=== PATIENT | female | born 1960 | race American Indian/Alaskan Native ===

== ENCOUNTER 2016-05-09 07:18 | Inpatient (IN) | payer MEDICARE, OTHER ==
[~2016-05-09 07:18] MED LIST: cefOXitin 2 GM Vial ONE
[2016-05-09] MEDS: Neomycin/Polymyxin B 1 ML, Sodium Chloride 0.9% 750 ML ONE ×4 (07:54→13:25)
[2016-05-09] MEDS ORDERED: Meropenem 500 MG SDV ONE (08:13)
[2016-05-09] MEDS ORDERED: Scopolamine 1.5 MG Transdermal Patch TOP SCH (08:15)
[2016-05-09] MEDS ORDERED: Gabapentin 300 MG Cap PO ONE (08:15)
[2016-05-09] MEDS ORDERED: Dextrose 5%-Lactated Ringers 1,000 ML IV SCH (08:30)
[2016-05-09] MEDS ORDERED: fentaNYL 250 MCG/5 ML SDV ONE (08:36)
[2016-05-09] MEDS ORDERED: Propofol 200 MG/20 ML SDV ONE (08:36)
[2016-05-09] MEDS ORDERED: Rocuronium 50 MG/5 ML Vial ONE (08:36)
[2016-05-09] MEDS ORDERED: Scopolamine 1.5 MG Transdermal Patch ONE (08:36)
[2016-05-09] MEDS ORDERED: Neostigmine Methylsulfate 1 MG/ML 5 ML Syringe ONE (08:36)
[2016-05-09] MEDS ORDERED: Dexamethasone 4 MG/ML SDV ONE (08:36)
[2016-05-09] MEDS ORDERED: Succinylcholine/Normal Saline 200 MG/10 ML Syringe ONE (08:36)
[2016-05-09] MEDS ORDERED: Ondansetron 4 MG/2 ML SDV ONE (08:36)
[2016-05-09] MEDS ORDERED: Lactated Ringers 1,000 ML ONE ×2 (08:36→11:09)
[2016-05-09] MEDS ORDERED: Sodium Chloride 0.9% 10 ML ONE (08:38)
[2016-05-09] MEDS ORDERED: fentaNYL 100 MCG/2 ML SDV ONE (08:38)
[2016-05-09] MEDS ORDERED: Ketamine 500 MG/5 ML MDV IV SCH (09:00)
[2016-05-09] MEDS ORDERED: cefOXitin 2 GM in Sodium Chloride 0.9% 50 ML IV ONE (09:15)
[2016-05-09] MEDS ORDERED: Lidocaine 1% 2 ML ONE (09:23)
[2016-05-09] MEDS ORDERED: Naloxone 0.4 MG/ML SDV IVPUSH PRN (09:30)
[2016-05-09] MEDS ORDERED: Ketamine 500 MG/5 ML MDV IV ONE (09:45)
[2016-05-09] MEDS: fentaNYL 2,500 MCG in Sodium Chloride 0.9% 200 ML EPIDUR SCH (13:30)
[2016-05-09] MEDS ORDERED: Lactated Ringers 500 ML IV ONE (14:00)
[2016-05-09] MEDS ORDERED: SCOPOLAMINE PATCH ASK TOP SCH (14:23)
[2016-05-09] MEDS ORDERED: Labetalol 20 MG/4 ML Syringe IVPUSH PRN (14:23)
[2016-05-09] MEDS ORDERED: hydrOXYzine HCl 50 MG/ML SDV IM PRN (14:23)
[2016-05-09] MEDS ORDERED: Naloxone 0.4 MG/ML SDV IV PRN (14:41)
[2016-05-09] MEDS ORDERED: diphenhydrAMINE 50 MG/ML SDV IVPUSH PRN (14:41)
[2016-05-09] MEDS ORDERED: Meperidine PF 50 MG/ML Syringe IM PRN (14:44)
[2016-05-09] MEDS: cefOXitin 2 GM in Sodium Chloride 0.9% 50 ML IV SCH ×2 (15:17→21:42)
[2016-05-09] MEDS: Acetaminophen 1,000 MG in Premix Bag 1 BAG IV SCH ×2 (16:10→21:42)
[2016-05-09] MEDS: Pantoprazole 40 MG Vial IVPUSH SCH (16:12)
[2016-05-09] MEDS: MVI, Adult with Vitamin K 10 ML, Thiamine 200 MG, Chromium/Copper/Mang/Selen/Zn 1 ML in... IV SCH ×4 (16:12)
[2016-05-09] MEDS: Heparin Sodium 5,000 Units/ML Vial SUBCUT SCH (18:08)
[2016-05-09] MEDS: Gabapentin 300 MG Cap PO SCH (21:42)
[2016-05-10] MEDS: Dextrose 5%-Lactated Ringers 1,000 ML IV SCH ×3 (01:42→15:05)
[2016-05-10] MEDS ORDERED: Iohexol 647 MG/ML 50 ML SDV PO SCH (02:15)
[2016-05-10] MEDS: Acetaminophen 1,000 MG in Premix Bag 1 BAG IV SCH (04:19)
[2016-05-10] MEDS: cefOXitin 2 GM in Sodium Chloride 0.9% 50 ML IV SCH ×4 (04:35→20:23)
[2016-05-10] MEDS: Heparin Sodium 5,000 Units/ML Vial SUBCUT SCH (06:23)
[2016-05-10] MEDS: Gabapentin 300 MG Cap PO SCH ×3 (09:03→20:06)
[2016-05-10] MEDS: Bisacodyl 5 MG Tab PO SCH ×2 (09:03→20:06)
[2016-05-10] MEDS: Ibuprofen 600 MG Tab PO SCH ×3 (09:04→22:29)
[2016-05-10] MEDS: Acetaminophen Soln 650 MG/20.3 ML UD Cup PO SCH ×3 (09:04→22:29)
[2016-05-10] MEDS: SCOPOLAMINE PATCH CHECK TOP SCH (09:05)
[2016-05-10] MEDS: Ondansetron 4 MG/2 ML SDV IVPUSH PRN (09:08)
[2016-05-10] MEDS: fentaNYL 2,500 MCG in Sodium Chloride 0.9% 200 ML EPIDUR SCH (09:12)
--- NOTE | 2016-05-10 09:46 | CR ---
UGI wo KUB HISTORY: Evaluate [place] bypass COMPARISON: Plain films 04/11/2016. FINDINGS: Upper GI demonstrates no extravasation of contrast. Surgical drain in the right and left l ower quadrant. Contrast reaches normal caliber small bowel. No obstruction seen. Gastric anastomosis demonstrates no stricture.
[2016-05-10] MEDS: Pantoprazole 40 MG Vial IVPUSH SCH (16:44)
[2016-05-10] MEDS ORDERED: Heparin Sodium 5,000 Units/ML Vial SUBCUT ONE (17:00)
[2016-05-10] MEDS: MVI, Adult with Vitamin K 10 ML, Thiamine 200 MG, Chromium/Copper/Mang/Selen/Zn 1 ML in... IV SCH ×4 (17:36)
[2016-05-11] MEDS: cefOXitin 2 GM in Sodium Chloride 0.9% 50 ML IV SCH ×4 (02:56→20:00)
[2016-05-11] MEDS: Ibuprofen 600 MG Tab PO SCH ×4 (03:55→21:27)
[2016-05-11] MEDS: Acetaminophen Soln 650 MG/20.3 ML UD Cup PO SCH ×4 (03:55→21:28)
[2016-05-11] MEDS: Dextrose 5%-Lactated Ringers 1,000 ML IV SCH ×2 (04:00→12:29)
[2016-05-11] MEDS ORDERED: Bupivacaine 0.5% 50 ML MDV ONE (06:48)
[2016-05-11] MEDS ORDERED: Lidocaine 1% with EPINEPHrine 1:100,000 50 ML MDV ONE (06:48)
[2016-05-11] MEDS ORDERED: Meropenem 500 MG SDV ONE (06:48)
[2016-05-11] MEDS ORDERED: Propofol 200 MG/20 ML SDV ONE (06:59)
--- NOTE | 2016-05-11 08:52 | PN ---
DATE OF SERVICE: 05/10/2016 The patient has been afebrile with stable vital signs. Epidural is working nicely with regard to pain control. She is also receiving some IV now, and we will switch over to oral Tylenol. We will add ibuprofen to the mix today and plan to proceed with closure of abdominal incision tomorrow and taking out the epidural at that point as well. We will give her a regular diet today and n.p.o. after midnight in anticipation of the closure, which will be the first thing tomorrow morning. Kit Duke MD /[id number]
[2016-05-11] MEDS ORDERED: Cyanocobalamin (Vitamin B12) 1,000 MCG/ML SDV IM ONE (09:00)
[2016-05-11] MEDS: Gabapentin 300 MG Cap PO SCH ×3 (09:52→20:00)
[2016-05-11] MEDS: Bisacodyl 5 MG Tab PO SCH (09:52)
[2016-05-11] MEDS: SCOPOLAMINE PATCH CHECK TOP SCH (09:54)
[2016-05-11] MEDS: Inulin 1.5 GM Chewable Tab PO SCH ×2 (11:04→20:00)
[2016-05-11] MEDS: Ondansetron 4 MG/2 ML SDV IVPUSH PRN ×2 (13:05→21:29)
[2016-05-11] MEDS: Pantoprazole 40 MG Vial IVPUSH SCH (16:53)
[2016-05-11] MEDS: MVI, Adult with Vitamin K 10 ML, Thiamine 200 MG, Chromium/Copper/Mang/Selen/Zn 1 ML in... IV SCH ×4 (17:37)
[2016-05-11] MEDS ORDERED: Heparin Sodium 5,000 Units/ML Vial SUBCUT SCH (18:00)
[2016-05-12] MEDS: cefOXitin 2 GM in Sodium Chloride 0.9% 50 ML IV SCH (03:39)
[2016-05-12] MEDS: Ibuprofen 600 MG Tab PO SCH ×4 (03:39→21:54)
[2016-05-12] MEDS: Acetaminophen Soln 650 MG/20.3 ML UD Cup PO SCH ×4 (03:39→21:54)
[2016-05-12] MEDS: Dextrose 5%-Lactated Ringers 1,000 ML IV SCH (03:46)
[2016-05-12] MEDS ORDERED: Cyclobenzaprine 10 MG Tab PO PRN (08:02)
[2016-05-12] MEDS ORDERED: Scopolamine 1.5 MG Transdermal Patch TOP SCH (09:00)
[2016-05-12] MEDS: HYDROmorphone 2 MG Tab PO PRN ×3 (09:15→21:53)
[2016-05-12] MEDS: Gabapentin 300 MG Cap PO SCH ×3 (09:15→21:54)
[2016-05-12] MEDS: Lactobacillus Rhamnosus GG (Probiotic) Cap PO SCH ×2 (09:16→21:54)
[2016-05-12] MEDS: Inulin 1.5 GM Chewable Tab PO SCH ×2 (09:18→21:54)
[2016-05-12] MEDS: Ondansetron 4 MG/2 ML SDV IVPUSH PRN ×3 (09:23→21:53)
[2016-05-12] MEDS: Bacitracin Oint 1 GM U/D Packet TOP PRN ×2 (09:25→20:31)
[2016-05-12] MEDS ORDERED: Atropine/Diphenoxylate 0.025-2.5 MG Tab PO ONE (10:35)
[2016-05-12] MEDS ORDERED: Atropine/Diphenoxylate 0.025-2.5 MG Tab PO PRN (10:35)
[2016-05-12] MEDS: SCOPOLAMINE PATCH CHECK TOP SCH (10:56)
--- NOTE | 2016-05-12 11:19 | OR ---
DATE OF PROCEDURE: 05/11/2016 PREOPERATIVE DIAGNOSIS: Open abdominal incision. POSTOPERATIVE DIAGNOSIS: Open abdominal incision. OPERATIVE PROCEDURE: Delayed primary closure of open abdominal incision. ANESTHESIA: IV sedation plus local. INDICATION FOR PROCEDURE: The patient is 48 hours status post subtotal colectomy, and at the time of the original procedure, it was felt that the skin and subcutaneous tissue would be at high risk for wound infection if a primary closure was undertaken. Given this, planned delayed primary closure is scheduled for today. Potential risks of the procedure including bleeding and infection were reviewed, and the patient wishes to proceed. DETAILS OF PROCEDURE: The patient was taken to the operating room and placed in a supine position. IV sedation was administered, after which the operative dressing was taken down. The wound was inspected and found to be clean. The incision was then prepped and draped, anesthetized with 1% lidocaine mixed with Marcaine and irrigated with meropenem-containing saline solution. A 10-Indian round Valentino-Young drain was placed through a stab wound near the inferior aspect of the incision, draped across that incision, and the incision closed with layers of 3-0 and 4-0 Vicryl stitch deep and then murtaza for the skin. Dressing was applied. The drain was affixed with some 3-0 Vicryl stitch. The patient was taken to the recovery room in satisfactory condition. Kit Duke MD /[id number]
--- NOTE | 2016-05-12 12:43 | PN ---
DATE OF SERVICE: 05/11/2016 The patient has been afebrile. Stable vital signs. Bowels started moving yesterday and is having frequent loose bowel movements. Will use some fiber wafers and go up to a regular diet. She has had a delayed primary closure of abdominal incision today and we will discontinue the epidural catheter and we will see if the combination of ibuprofen, gabapentin, and Tylenol are satisfactory for pain. Otherwise, will maximize activity and work with pulmonary toilet. Kit Duke MD /[id number]
[2016-05-12] MEDS: MVI, Adult with Vitamin K 10 ML, Thiamine 200 MG, Chromium/Copper/Mang/Selen/Zn 1 ML in... IV SCH ×4 (16:59)
[2016-05-12] MEDS: Pantoprazole 40 MG Tab.CR PO SCH (16:59)
[2016-05-12] MEDS ORDERED: Dimethicone 20%/Zinc Oxide 25% 56 GM Spray Bottle TOP PRN (19:53)
[2016-05-13] MEDS: Ondansetron 4 MG/2 ML SDV IVPUSH PRN (02:10)
[2016-05-13] MEDS: HYDROmorphone 2 MG Tab PO PRN ×3 (02:10→21:23)
[2016-05-13] MEDS: Dextrose 5%-Lactated Ringers 1,000 ML IV SCH (02:59)
[2016-05-13] MEDS: Ibuprofen 600 MG Tab PO SCH (05:24)
[2016-05-13] MEDS: Acetaminophen Soln 650 MG/20.3 ML UD Cup PO SCH ×4 (05:24→17:00)
[2016-05-13] MEDS ORDERED: Loperamide 2 MG Cap PO PRN (07:39)
[2016-05-13] MEDS ORDERED: fentaNYL 12 MCG/HR Transdermal Patch TRDERM SCH (08:00)
[2016-05-13] MEDS: Metoclopramide 10 MG/2 ML SDV IV SCH ×3 (08:58→19:52)
[2016-05-13] MEDS: Lactobacillus Rhamnosus GG (Probiotic) Cap PO SCH ×2 (08:59→20:18)
[2016-05-13] MEDS: Inulin 1.5 GM Chewable Tab PO SCH ×2 (08:59→20:19)
[2016-05-13] MEDS: SCOPOLAMINE PATCH CHECK TOP SCH ×2 (09:00→14:37)
[2016-05-13] MEDS: Potassium Phosphates 20 MMOLE in Sodium Chloride 0.9% 250 ML IV SCH ×3 (10:02→19:49)
[2016-05-13] MEDS: MVI, Adult with Vitamin K 10 ML, Thiamine 200 MG, Chromium/Copper/Mang/Selen/Zn 1 ML in... IV SCH ×4 (16:58)
[2016-05-13] MEDS: Pantoprazole 40 MG Tab.CR PO SCH (16:59)
[2016-05-13] MEDS: Magnesium Sulfate/Water 2 GM in Premix Bag 1 BAG IV SCH (17:02)
--- NOTE | 2016-05-13 17:50 | PCM.CONS ---
H&P History of Present Illness - General Date of Service: 05/13/16 Admit Problem/Dx: Admission Diagnosis/Problem Admission Diagnosis/Problem Colectomy Source of Information: Patient, Provider History Limitations: Reports: Altered mental status - History of Present Illness Initial Comments - Free Text/Narative: Carolyn was admitted on May 09 for a colectomy. Today is day 4 postoperatively and I was asked to see her by Dr. Duke regarding elevated bilirubin and hepatic panel numbers. She is very sleepy at this time and unable to provide much history. Per the nursing report she has been sleeping much of the day but had been doing well for the most part through the day yesterday. She currently does endorse moderate sharp abdominal pain both in the right upper quadrant and left lower quadrant as well as a mild ache in the middle of her abdomen. Pain medications have been helping but she has not had any since this morning because of somnolence. Her fentanyl patch was not replaced this morning do to the somnolence. She did require supplemental oxygen temporarily today. At the time of my valuation she does not endorse shortness of breath and is not on supplemental oxygen. She does not complaining of shortness of breath or chest pain. She has been having some difficulty with visual hallucinations such as feeling like she's part of her dreams as well as things moving on the floor. These are new today. In reviewing her records it does appear that her hepatic panel numbers often bump following surgery but not usually the bilirubin. ABDOMINAL AND GEREALIZED ACHE Pain Score (Numeric/FACES): 7 - Related Data Allergies/Adverse Reactions: Allergies Allergy/AdvReac Type Severity Reaction Status Date / Time codeine Allergy Unknown Cannot Verified 05/09/16 08:04 Remember hydrocodone Allergy Unknown Cannot Verified 05/09/16 08:04 Remember omeprazole Allergy Unknown Cannot Verified 05/09/16 08:04 Remember oxycodone Allergy Unknown Cannot Verified 05/09/16 08:04 Remember sucralfate [From Carafate] Allergy Unknown Cannot Verified 05/09/16 08:04 Remember venom-honey bee Allergy Cannot Verified 05/09/16 08:04 [bee venom (honey bee)] Remember Home Medications: Home Meds Cyanocobalamin (Vitamin B-12) [Cyanocobalamin Injection] 1 ml IM ASDIRECTED [History] EPINEPHrine [Epipen] 0.3 mg IM ASDIRECTED PRN 04/10/15 [History] Multivitamin with Minerals [Multivitamins with Minerals] 1 tab PO DAILY [History] Ondansetron [Zofran ODT] 4 mg PO Q4HR PRN #30 tab.dis 04/16/15 [Rx] Sennosides/Docusate Sodium [Senna S Tablet] 2 tab PO DAILY 11/09/15 [History] Thiamine [Vitamin B-1] 100 mg IM ASDIRECTED 11/09/15 [History] Docusate Sodium/Sennosides [Senna Plus] 2 tab PO DAILY #100 tablet 01/06/16 [Rx] Lidocaine 5% [Lidoderm 5%] 700 mg TRDERM DAILY patch 01/06/16 [Rx] Lubiprostone [Amitiza] 24 mcg PO BID cap 01/06/16 [Rx] Scopolamine [Transderm-Scop] 1.5 mg TRDERM Q72H #5 patch 01/06/16 [Rx] Acetaminophen 640 mg PO Q4H PRN 04/07/16 [History] Bisacodyl [Dulcolax] 10 mg PO BID #100 tablet 04/11/16 [Rx] Polyethylene Glycol 3350 [MiraLAX] 17 gm PO BID #0 04/11/16 [Rx] Polyethylene Glycol 3350 [Miralax] 119 gm PO ASDIRECTED #238 powder 04/11/16 [Rx ] traMADol [Ultram] 50 - 100 mg PO Q6H PRN #30 tablet 04/11/16 [Rx] Past Medical History HEENT History: Reports: None, Cataract, Other (see below) Other HEENT History: pititutary Cardiovascular History: Reports: Other (see below) Other Cardiovascular History: BRADYCARDIA Respiratory History: Reports: Asthma, Other (see below) Other Respiratory History: Night time oxygen due to Lupus at 2.5-3L. 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 Musculoskeletal History: Reports: Arthritis, Back pain, chronic, Connective tissue disease, Neck pain, chronic, Other (see below) Other Musculoskeletal History: herniated disc Neurological History: Reports: Concussion, Head trauma, Migraines, TIA, Other ( see below) Other Neuro History: herniated disc - TIA 03/08/16 - tpa given to break up clot - Psychiatric History: Reports: None Endocrine/Metabolic History: Reports: None Hematologic History: Reports: B12 deficiency, Other (see below) Other Hematologic History: lymphoma Immunologic History: Reports: Immunosuppression, Other (see below) Other Immunologic History: lupus Oncologic (Cancer) History: Reports: Lymphoma Dermatologic History: Reports: None - Infectious Disease History Infectious Disease History: Reports: Chicken pox, Measles, Mumps - Past Surgical History Head Surgeries/Procedures: Reports: None HEENT Surgical History: Reports: LASIK, Other (see below) Other HEENT Surgeries/Procedures: dry eyes lymph node right gland removed Cardiovascular Surgical History: Reports: None Respiratory Surgical History: Reports: None GI Surgical History: Reports: Appendectomy, Bariatric procedure, Cholecystectomy , Colon, Colonoscopy, Esophageal dilatation Female Surgical History: Reports: Tubal ligation Endocrine Surgical History: Reports: Pituitary tumor resection Neurological Surgical History: Reports: None Musculoskeletal Surgical History: Reports: None Oncologic Surgical History: Reports: None Dermatological Surgical History: Reports: None Social & Family History - Family History HEENT: Reports: Impaired vision Cardiac: Reports: CAD, [place] Respiratory: Reports: Asthma GI: Reports: None : Reports: Diabetic nephropathy OBGYN: Reports: None Musculoskeletal: Reports: None Neurological: Reports: None Psychiatric: Reports: None Endocrine/Metabolic: Reports: Diabetes, type I, Diabetes, type II, Hypothyroidism Hematologic: Reports: None Immunologic: Reports: None Oncologic: Reports: Breast, Uterine - Tobacco Use Smoking Status *Q: Never Smoker Second Hand Smoke Exposure: No - Caffeine Use Caffeine Use: Reports: None Other Caffeine Use: occasionaly - Alcohol Use Alcohol Use History: No - Recreational Drug Use Recreational Drug Use: No H&P Review of Systems - Review of Systems: Review Of Systems: See Below Free Text/Narrative: A complete 12 point review of systems was obtained. Pertinent positives and negatives are noted in the history of present illness. All other systems were reviewed and were negative except as noted. I did complete the review of systems but she was not able to respond to all of the questions. Exam - Exam Exam: See Below - Vital Signs Vital Signs: Last Vital Signs Temp 37.4 C 05/13/16 16:29 Pulse 114 H 05/13/16 16:29 Resp 16 05/13/16 16:29 BP 106/65 05/13/16 16:29 Pulse Ox 93 L 05/13/16 16:29 Weight: 60.781 kg - Exam Quality Assessment: No: supplemental oxygen, urinary catheter General: alert, cooperative, lethargic. No: oriented HEENT: Conjunctiva clear. No: Mucosa moist & pink (dry), Scleral icterus Neck: supple, trachea midline. No: lymphadenopathy Lungs: Clear to auscultation, Normal respiratory effort, Decreased breath sounds (mild at both bases) Cardiovascular: regular rhythm, tachycardia (mild). No: systolic murmur Abdomen: soft, distention, hypoactive bowel sounds Back Exam: full range of motion. No: normal inspection Extremities: cool (both hands and feet are cool to touch), edema (pitting lower extremity edema to midshin). No: cyanosis Peripheral Pulses: 1+: dorsalis pedis (L), dorsalis pedis (R) Skin: dry, cool, other (2 small ruptured vesicles mid back with mild surrounding erythema ( had tape for epidural here )) Neuro Extensive - Mental Status: alert, slow response to commands. No: oriented x3 Neuro Extensive - Motor, Sensory, Reflexes: CN II-XII intact. No: dysarthria, abnormal motor, tremor Psychiatric: alert, other (lethargic) - Patient Data Lab Results last 24 hrs: Laboratory Results - last 24 hr 05/13/16 05/13/16 05/13/16 Range/Units 04:00 04:00 04:00 WBC Cancelled 3.7 L RBC Cancelled 3.57 Hgb Cancelled 10.3 L D Hct Cancelled 31.7 L MCV Cancelled 89 MCH Cancelled 29 MCHC Cancelled 33 Plt Count Cancelled 287 Add Manual Diff Yes Neutrophils % (Manual) 62 (36-66) % Band Neutrophils % 12 H (5-11) % Lymphocytes % (Manual) 17 L (24-44) % Monocytes % (Manual) 9 H (2-6) % Nucleated RBCs 2 Poikilocytosis Few Anisocytosis Few Microcytosis Sodium 140 (140-148) mmol/L Potassium 3.1 L (3.6-5.2) mmol/L Chloride 106 (100-108) mmol/L Carbon Dioxide 27 (21-32) mmol/L Anion Gap 10.1 (5.0-14.0) mmol/L BUN 13 (7-18) mg/dL Creatinine 0.8 (0.6-1.0) mg/dL Est Cr Clr Drug Dosing 74.45 mL/min Estimated GFR (MDRD) > 60 (>60) Glucose 82 (74-106) mg/dL Calcium 8.4 L (8.5-10.1) mg/dL Phosphorus 2.9 (2.5-4.9) mg/dL Magnesium 1.5 L (1.8-2.4) mg/dL Total Bilirubin 3.1 H D (0.2-1.0) mg/dL AST 103 H D (15-37) U/L ALT 96 H (12-78) U/L Alkaline Phosphatase 274 H D (46-116) U/L Total Protein 4.9 L (6.4-8.2) g/dL Albumin 1.8 L (3.4-5.0) g/dL Globulin 3.1 (2.3-3.5) g/dL Albumin/Globulin Ratio 0.6 L (1.2-2.2) Result Diagrams: 05/13/16 04:00 05/13/16 04:00 Dereje Results last 24 hrs: Microbiology 05/11/16 23:55 Aerobic Blood Culture - Preliminary Blood - Venous NO GROWTH AFTER 1 DAY Anaerobic Blood Culture - Preliminary NO GROWTH AFTER 1 DAY 05/11/16 23:55 Aerobic Blood Culture - Preliminary Blood - Venous - Lab Draw NO GROWTH AFTER 1 DAY Anaerobic Blood Culture - Preliminary NO GROWTH AFTER 1 DAY Imaging Impressions last 24 hrs: chest x-ray - images personally reviewed - there is evidence for left lower lung pleural effusion with possibly an infiltrate mixed in. She has evidence for pulmonary vascular congestion. Heart size is normal. No definite mass. Consult PN Assessment/Plan POD#: 4 Procedures: Procedures ASSAY OF LACTIC ACID (03/04/16) ASSAY OF MAGNESIUM (04/07/16) ASSAY OF PHOSPHORUS (04/07/16) ASSAY THYROID STIM HORMONE (10/08/15) BLOOD TYPING SEROLOGIC ABO (04/14/15) BLOOD TYPING SEROLOGIC RH(D) (04/14/15) C-REACTIVE PROTEIN (04/07/16) COMPLETE CBC AUTOMATED (04/07/16) COMPLETE CBC W/AUTO DIFF WBC (04/07/16) COMPREHEN METABOLIC PANEL (04/07/16) CT ABD & PELV W/CONTRAST (03/04/16) CULTURE SCREEN ONLY (11/10/15) ELECTROCARDIOGRAM TRACING (04/14/15) EMERGENCY DEPT VISIT (04/07/16) HYDRATE IV INFUSION ADD-ON (04/07/16) MEASURE BLOOD OXYGEN LEVEL (01/01/16) METABOLIC PANEL TOTAL CA (03/04/16) PT EVALUATION (11/10/15) RBC ANTIBODY SCREEN (04/14/15) ROUTINE VENIPUNCTURE (04/07/16) SPECIAL STAINS GROUP 2 (04/14/15) THER/PROPH/DIAG INJ IV PUSH (04/07/16) THER/PROPH/DIAG IV INF ADDON (03/04/16) THER/PROPH/DIAG IV INF INIT (03/04/16) THERAPEUTIC ACTIVITIES (11/10/15) TISSUE EXAM BY PATHOLOGIST (01/01/16) TISSUE EXAM BY PATHOLOGIST (01/01/16) TISSUE EXAM BY PATHOLOGIST (04/14/15) TISSUE EXAM BY PATHOLOGIST (04/14/15) TX/PRO/DX INJ NEW DRUG ADDON (04/07/16) URINALYSIS AUTO W/SCOPE (04/07/16) X-RAY EXAM OF ABDOMEN (04/07/16) X-RAY EXAM SERIES ABDOMEN (04/07/16) X-RAY UPPER GI DELAY W/O KUB (03/04/16) X-RAY UPPER GI&SMALL INTEST (04/07/16) (1) Elevated bilirubin SNOMED Code(s): 393678906 Code(s): R17 - UNSPECIFIED JAUNDICE Current Visit: Yes Problem List Initiated/Reviewed/Updated: Yes My Orders last 24 hours: My Active Orders 05/13/16 16:27 CXR [Chest 1V Frontal] [CR] Routine 05/13/16 17:42 Furosemide [Lasix] 20 mg IVPUSH ONETIME ONE 05/13/16 18:00 Dextrose 5%-Lactated Ringers 1,000 ml IV ASDIRECTED Plan: Assessment and Plan - Elevated bilirubin with mild elevation of AST and ALT - history of similar elevations following surgery though not bilirubin to this extent. I do not see much in the way of concerning medications. Stress leading to a very mild lupus flare could be considered since this seems to happen after each surgery based on chart review. Hepatic congestion with some volume overload could be considered. she's not on TPN and has not received large doses of acetaminophen. -diuresis as below -Labs in the morning Delirium - probably multifactorial with medications such as pain medications, cyclobenzaprine and scopolamine patch. She does have evidence for volume overload and hypoxia could be contributing. -Discontinue fentanyl patch, cyclobenzaprine and scopolamine -Furosemide 20 mg IV x1 now -Decrease IV fluids -avoid narcotics as much as able S/P colectomy - post op day 4 - had been stable up through yesterday but has deteriorated overnight. -Postop cares per surgical team Eduard Bedolla M.D. Requesting Provider: Dr. Duke Date Consult Requested: 05/13/16 Reason for Consult: elevated bilirubin and delirium Patient History Reviewed: Yes Admission H&P Reviewed: Yes Notified Requestor: No Time Spent (in minutes): 60
[2016-05-13] MEDS ORDERED: Meropenem 500 MG in Sodium Chloride 0.9% 50 ML IV ONE (18:00)
[2016-05-13] MEDS ORDERED: Dextrose 5%-Lactated Ringers 1,000 ML IV SCH (18:00)
[2016-05-13] MEDS ORDERED: Furosemide 20 MG/2 ML VIAL IVPUSH ONE (18:00)
[2016-05-13] MEDS ORDERED: Diatrizoate Meglumine/Diatrizoate Sodium 37% 30 ML Bottle PO SCH (18:15)
[2016-05-13] MEDS ORDERED: Iopamidol 612 MG/ML 100 ML Bottle IV SCH (18:15)
[2016-05-13] MEDS ORDERED: Albuterol/Ipratropium 3.0-0.5 MG/3 ML Neb Soln NEB STA (19:08)
[2016-05-13] MEDS: Sodium Chloride 0.9% 10 ML Syringe FLUSH ONE ×2 (19:17→19:22)
[2016-05-13] MEDS ORDERED: Diatrizoate Meglumine/Diatrizoate Sodium 37% 120 ML Bottle PO SCH (19:45)
[2016-05-14] MEDS: Magnesium Sulfate/Water 2 GM in Premix Bag 1 BAG IV SCH ×2 (00:15→04:16)
[2016-05-14] MEDS: Meropenem 500 MG in Sodium Chloride 0.9% 50 ML IV SCH ×6 (00:15→22:07)
[2016-05-14] MEDS: Acetaminophen Soln 650 MG/20.3 ML UD Cup PO SCH ×2 (00:15→04:16)
[2016-05-14] MEDS: Metoclopramide 10 MG/2 ML SDV IV SCH ×2 (02:05→08:03)
[2016-05-14] MEDS: HYDROmorphone 2 MG Tab PO PRN (02:12)
[2016-05-14] MEDS ORDERED: Meropenem 500 MG SDV ONE ×2 (07:30→10:02)
[2016-05-14] MEDS ORDERED: Neostigmine Methylsulfate 1 MG/ML 5 ML Syringe ONE (07:43)
[2016-05-14] MEDS ORDERED: Ondansetron 4 MG/2 ML SDV ONE (07:43)
[2016-05-14] MEDS ORDERED: Succinylcholine/Normal Saline 200 MG/10 ML Syringe ONE (07:43)
[2016-05-14] MEDS ORDERED: Midazolam 1 MG/ML 2 ML SDV ONE (07:43)
[2016-05-14] MEDS ORDERED: Dexamethasone 4 MG/ML SDV ONE (07:43)
[2016-05-14] MEDS ORDERED: Propofol 200 MG/20 ML SDV ONE (07:43)
[2016-05-14] MEDS ORDERED: Rocuronium 50 MG/5 ML Vial ONE (07:43)
[2016-05-14] MEDS ORDERED: fentaNYL 250 MCG/5 ML SDV ONE (07:43)
[2016-05-14] MEDS ORDERED: Ketamine 500 MG/5 ML MDV ONE (08:50)
[2016-05-14] MEDS ORDERED: Sodium Chloride 0.9% 10 ML ONE ×2 (08:51→09:27)
[2016-05-14] MEDS ORDERED: Phenylephrine 1% 10 MG/ML SDV ONE (09:26)
[2016-05-14] MEDS: fentaNYL 25 MCG/HR Transdermal Patch TRDERM SCH ×2 (09:30→16:58)
[2016-05-14] MEDS ORDERED: Lactated Ringers 1,000 ML ONE (09:33)
[2016-05-14] MEDS ORDERED: Edrophonium Chloride 150 MG/15 ML MDV ONE (10:58)
[2016-05-14] MEDS ORDERED: Naloxone 0.4 MG/ML SDV IV PRN (13:00)
[2016-05-14] MEDS: HYDROmorphone/Normal Saline 15 MG/30 ML PCA IV PRN (13:09)
[2016-05-14] MEDS ORDERED: diphenhydrAMINE 50 MG/ML SDV IVPUSH PRN (13:15)
--- NOTE | 2016-05-14 13:16 | PN ---
DATE OF SERVICE: 05/13/2016 TIME: 8 p.m. Earlier this afternoon, the patient developed somewhat feculent-type drainage into the LACIE drain that runs along the left colic gutter area and into the left side of the pelvis. The patient has been more or less having more abdominal pain as well as some intermittent fevers over the last 24 hours. Clinically, she is hemodynamically stable with a temperature of 98, heart rate of 107, and blood pressure presently of 102/60, and urine output is quite good. The other 2 LACIE drains are not putting anything out untoward. We did obtain a CT scan of the abdomen and pelvis with rectal and IV contrast. There was good contrast getting into the small bowel from the area through the ileorectal anastomosis. No leak was seen, and no obvious abscess cavities were seen. It is possible at this point that the drain is opened up what would otherwise be a satisfactory drainage of the infected fluid collection with this just happening over the last few hours, and the patient is reasonably stable in appearance, so I think we will treat this with antibiotics consisting of meropenem and Azactam and see how things go over the next 8, 12, and 24 hours. If her condition worsen, or if by morning, she is not looking significantly improving, we probably would need to proceed with a laparotomy. The nurses will be in contact with me frequently during the night as needed. Kit Duke MD /[id number]
[2016-05-14] MEDS: Aztreonam/Dextrose-Water 1 GM in Premix Bag 1 BAG IV SCH ×2 (13:20→22:06)
[2016-05-14] MEDS: 1: AA 5%/Calcium/D15W/Lytes 1,000 ML with MVI, Adult with Vitamin K 10 ML, Chromium/Copp IV SCH ×3 (15:35)
[2016-05-14] MEDS: MVI, Adult with Vitamin K 10 ML, Thiamine 200 MG, Chromium/Copper/Mang/Selen/Zn 1 ML in... IV SCH ×4 (16:33)
[2016-05-14] MEDS: Pantoprazole 40 MG Vial IV SCH (16:43)
[2016-05-14] MEDS: Acetaminophen 1,000 MG in Premix Bag 1 BAG IV SCH ×2 (16:47→22:05)
[2016-05-14] MEDS: CHECK FENTANYL PATCH DAILY TOP SCH (16:58)
--- NOTE | 2016-05-14 17:37 | PCM.CONSN ---
- General Info Date of Service: 05/14/16 Functional Status: Denies: pain controlled, tolerating diet - Review of Systems General: Reports: fever, weakness Gastrointestinal: Reports: Abdominal pain Systems Review Comment:: Overnight it was discovered that the patient had either an abscess or possibly a leak at the anastomosis via CT scan. She was taken to the operating room this morning and had an exploratory laparotomy which revealed a leak at the JJ site as well as a focal abscess and peritonitis. Postoperatively she is reporting moderately severe abdominal pain. She is requiring supplemental oxygen. CT scan did also reveal a left pleural effusion. Gram stain from the abscess is showing gram-negative rods and she is on broad-spectrum antibiotics. - Patient Data Vitals - most recent: Last Vital Signs Temp 37.3 C 05/14/16 16:00 Pulse 126 H 05/14/16 12:01 Resp 16 05/14/16 17:00 BP 102/62 05/14/16 17:00 Pulse Ox 93 L 05/14/16 17:00 Weight - most recent: 60.781 kg I&O - last 24 hours: Intake & Output 05/14/16 05/14/16 05/14/16 06:59 14:59 22:59 Intake Total 2492 Output Total 2866 344 169 Balance -273 -575 -169 Lab Results last 24 hrs: Laboratory Results - last 24 hr 05/14/16 05/14/16 Range/Units 04:41 04:41 WBC 6.6 (4.5-11.0) K/uL RBC 4.37 (3.30-5.50) M/uL Hgb 12.8 D (12.0-15.0) g/dL Hct 36.8 (36.0-48.0) % MCV 84 (80-98) fL MCH 29 (27-31) pg MCHC 35 (32-36) % Plt Count 241 (150-400) K/uL Add Manual Diff Yes Neutrophils % (Manual) 66 (36-66) % Band Neutrophils % 20 H (5-11) % Lymphocytes % (Manual) 3 L (24-44) % Monocytes % (Manual) 7 H (2-6) % Metamyelocytes % 2 % Myelocytes % 2 % Polychromasia Poikilocytosis Few Anisocytosis Few Sodium 141 (140-148) mmol/L Potassium 3.7 (3.6-5.2) mmol/L Chloride 108 (100-108) mmol/L Carbon Dioxide 20 L (21-32) mmol/L Anion Gap 16.7 H (5.0-14.0) mmol/L BUN 20 H D (7-18) mg/dL Creatinine 1.0 (0.6-1.0) mg/dL Est Cr Clr Drug Dosing 59.56 mL/min Estimated GFR (MDRD) 57 L (>60) Glucose 87 (74-106) mg/dL Calcium 7.9 L (8.5-10.1) mg/dL Phosphorus 4.1 (2.5-4.9) mg/dL Total Bilirubin 0.7 D (0.2-1.0) mg/dL AST 35 (15-37) U/L ALT 61 (12-78) U/L Alkaline Phosphatase 207 H (46-116) U/L Total Protein 4.8 L (6.4-8.2) g/dL Albumin 1.5 L (3.4-5.0) g/dL Globulin 3.3 (2.3-3.5) g/dL Albumin/Globulin Ratio 0.5 L (1.2-2.2) Dereje Results last 24 hrs: Microbiology 05/14/16 09:43 Gram Stain - Final Abdomen - Abscess 05/11/16 23:55 Aerobic Blood Culture - Preliminary Blood - Venous NO GROWTH AFTER 2 DAYS Anaerobic Blood Culture - Preliminary NO GROWTH AFTER 2 DAYS 05/11/16 23:55 Aerobic Blood Culture - Preliminary Blood - Venous - Lab Draw NO GROWTH AFTER 2 DAYS Anaerobic Blood Culture - Preliminary NO GROWTH AFTER 2 DAYS Med Orders - Current: Current Medications Bacitracin (Bacitracin Oint 1 Gm) 1 dose TOP BID PRN PRN Reason: burn Last Admin: 05/12/16 20:31 Dose: 2 dose Dimethicone/Zinc Oxide (Rash Relief-Zinc Oxide Cushing) 1 gm TOP ASDIRECTED PRN PRN Reason: Other Last Admin: 05/12/16 20:30 Dose: 1 bot Diphenhydramine HCl (Benadryl) 25 - 50 mg IVPUSH Q4H PRN PRN Reason: ITCHING Fentanyl (Duragesic) 25 mcg TRDERM Q72H [facility] Last Admin: 05/14/16 16:58 Dose: Not Given Hydromorphone HCl (Dilaudid Welder Fabricator 15 Mg In Ns 30 Ml) 0 mg IV ASDIRECTED PRN; Protocol PRN Reason: DIGITAL CARTOGRAPHIC TECHNICIAN PAIN CONTROL Last Admin: 05/14/16 13:09 Dose: 15 mg Hydroxyzine HCl (Vistaril) 100 mg IM Q4H PRN PRN Reason: PAIN NOT CONTROLLED BY DIGITAL CARTOGRAPHIC TECHNICIAN Multivitamins/Minerals 10 ml/Thiamine HCl 200 mg/ Chromium/Copper/Manganese/ Seleni/Zn 1 ml/ Dextrose/Lactated Ringer's 1,013 mls @ 100 mls/hr IV DAILY@ 1600 [facility] Last Admin: 05/14/16 16:33 Dose: Not Given Meropenem 500 mg/ Sodium (Chloride) 50 mls @ 100 mls/hr IV Q6H [facility] Last Admin: 05/14/16 15:39 Dose: 100 mls/hr Aztreonam/Dextrose 1 gm/ (Premix) 50 mls @ 100 mls/hr IV Q8H [facility] Last Admin: 05/14/16 13:20 Dose: 100 mls/hr Multivitamins/Minerals 10 ml/Chromium/Copper/Manganese/Seleni/Zn 1 ml/ Amino Ac/ Electrol/Dextrose/Calcium 1,011 mls @ 82 mls/hr IV .BY DURATION [facility] Last Admin: 05/14/16 15:35 Dose: 82 mls/hr Amino Ac/Electrol/Dextrose/Calcium (Clinimix E 07/25) 1,000 mls @ 82 mls/hr IV .BY DURATION [facility] Lactated Ringer's (Ringers, Lactated) 1,000 mls @ 100 mls/hr IV ASDIRECTED [facility] Acetaminophen 1,000 mg/ Premix 100 mls @ 400 mls/hr IV Q6H [facility] Stop: 05/15/16 10:14 Last Admin: 05/14/16 16:47 Dose: 400 mls/hr Naloxone HCl (Narcan) 0.1 mg IV ASDIRECTED PRN PRN Reason: decreased respiratory rate Check Fentanyl Patch (Daily) 1 each TOP DAILY [facility] Last Admin: 05/14/16 16:58 Dose: Not Given Ondansetron HCl (Zofran) 4 mg IVPUSH Q4H PRN PRN Reason: Nausea/Vomiting Last Admin: 05/13/16 02:10 Dose: 4 mg Pantoprazole Sodium (Protonix Iv) 40 mg IV Q24H [facility] Last Admin: 05/14/16 16:43 Dose: 40 mg Discontinued Medications Acetaminophen (Tylenol) 650 mg PO Q6H [facility] Last Admin: 05/14/16 04:16 Dose: 650 mg Albuterol/Ipratropium (Duoneb 3.0-0.5 Mg/3 Ml) 3 ml NEB ONETIME STA Stop: 05/13/16 19:09 Last Admin: 05/13/16 19:21 Dose: 3 ml Alvimopan (Entereg) 12 mg PO ONETIME ONE Stop: 05/09/16 08:31 Last Admin: 05/09/16 08:30 Dose: 12 mg Alvimopan (Entereg) 12 mg PO Q12H [facility] Stop: 05/16/16 09:01 Last Admin: 05/10/16 09:04 Dose: 12 mg Bisacodyl (Dulcolax) 10 mg PO BID [facility] Last Admin: 05/11/16 09:52 Dose: Not Given Bupivacaine HCl (Marcaine 0.5%) Confirm Administered Dose 50 ml .ROUTE .STK-MED ONE Stop: 05/11/16 06:49 Last Admin: 05/11/16 09:09 Dose: 32 ml Cefoxitin Sodium (Mefoxin) Confirm Administered Dose 2 gm .ROUTE .STK-MED ONE Stop: 05/09/16 06:55 Neomycin/Polymyxin 1 ml/ (Sodium Chloride 750 ml) 0 ml .XX ONETIME ONE Stop: 05/09/16 09:16 Last Admin: 05/09/16 13:25 Dose: Not Given Cyanocobalamin (Vitamin B12) 1,000 mcg IM ONETIME ONE Stop: 05/11/16 09:01 Last Admin: 05/11/16 09:53 Dose: 1,000 mcg Cyclobenzaprine HCl (Flexeril) 10 mg PO Q6H PRN PRN Reason: Muscle Spasm Last Admin: 05/13/16 06:22 Dose: 10 mg Dexamethasone (Dexamethasone) Confirm Administered Dose 4 mg .ROUTE .STK-MED ONE Stop: 05/09/16 08:37 Dexamethasone (Dexamethasone) Confirm Administered Dose 4 mg .ROUTE .STK-MED ONE Stop: 05/14/16 07:44 Diatrizoate Meglum/Diatrizoate Sod (Gastrografin 37%) 30 ml PO . DIRECTED [facility] Stop: 05/13/16 19:46 Last Admin: 05/13/16 19:33 Dose: 30 mg Diphenhydramine HCl (Benadryl) 25 mg IVPUSH Q6H PRN PRN Reason: ITCHING Diphenoxylate HCl/Atropine (Lomotil 0.025-2.5 Mg) 1 tab PO ONETIME ONE Stop: 05/12/16 10:36 Last Admin: 05/12/16 10:55 Dose: 1 tab Diphenoxylate HCl/Atropine (Lomotil 0.025-2.5 Mg) 1 tab PO Q6H PRN PRN Reason: Diarrhea Edrophonium Chloride (Enlon) Confirm Administered Dose 150 mg .ROUTE .STK-MED [facility] Stop: 05/14/16 10:59 Fentanyl (Sublimaze) Confirm Administered Dose 500 mcg .ROUTE .STK-MED ONE Stop: 05/09/16 08:37 Fentanyl (Sublimaze) Confirm Administered Dose 100 mcg .ROUTE .STK-MED ONE Stop: 05/09/16 08:39 Fentanyl (Duragesic) 12 mcg TRDERM Q72H [facility] Last Admin: 05/13/16 13:15 Dose: Not Given Fentanyl (Sublimaze) Confirm Administered Dose 250 mcg .ROUTE .STK-MED ONE Stop: 05/14/16 07:44 Furosemide (Lasix) 20 mg IVPUSH ONETIME ONE Stop: 05/13/16 18:01 Last Admin: 05/13/16 18:21 Dose: 20 mg Gabapentin (Neurontin) 300 mg PO ONETIME ONE Stop: 05/09/16 08:16 Last Admin: 05/09/16 07:53 Dose: 300 mg Gabapentin (Neurontin) 300 mg PO TID [facility] Last Admin: 05/12/16 21:54 Dose: 300 mg Glycopyrrolate () Confirm Administered Dose 1 mg .ROUTE .STK-MED ONE Stop: 05/09/16 08:37 Glycopyrrolate () Confirm Administered Dose 1 mg .ROUTE .STK-MED ONE Stop: 05/14/16 07:44 Heparin Sodium (Porcine) (Heparin Sodium) 5,000 units SUBCUT Q12H [facility] Stop: 05/10/16 20:00 Last Admin: 05/10/16 06:23 Dose: 5,000 units Heparin Sodium (Porcine) (Heparin Sodium) 5,000 units SUBCUT Q12H [facility] Heparin Sodium (Porcine) (Heparin Sodium) 5,000 units SUBCUT ONETIME ONE Stop: 05/10/16 17:01 Last Admin: 05/10/16 16:45 Dose: 5,000 units Heparin Sodium (Porcine) (Heparin Lock Flush 100 Units/Ml Syringe) 500 units FLUSH .STK-MED ONE Stop: 05/14/16 10:20 Last Admin: 05/14/16 10:19 Dose: 500 units Hydromorphone HCl (Dilaudid) 2 - 4 mg PO Q4H PRN PRN Reason: PAIN Last Admin: 05/14/16 02:12 Dose: 4 mg Hydroxyzine HCl (Vistaril) 75 - 100 mg IM Q4H PRN PRN Reason: PAIN NOT CONTROLLED BY DIGITAL CARTOGRAPHIC TECHNICIAN Last Admin: 05/13/16 02:48 Dose: 100 mg Dextrose/Lactated Ringer's (Dextrose 5%-Lactated Ringers) 1,000 mls @ 100 mls/ hr IV ASDIRECTED [facility]AHY Last Admin: 05/09/16 07:55 Dose: 100 mls/hr Cefoxitin Sodium 2 gm/ Sodium (Chloride) 50 mls @ 100 mls/hr IV ONETIME ONE Stop: 05/09/16 09:44 Last Admin: 05/09/16 09:08 Dose: 100 mls/hr Fentanyl 2,500 mcg/ Sodium (Chloride) 250 mls @ 0 mls/hr EPIDUR TITRATE SARAHY; Titrate PRN Reason: Protocol Last Admin: 05/10/16 09:12 Dose: 10 ml/hr, 10 mls/hr Ketamine HCl 100 mg/ Sodium (Chloride) 100 mls @ 18 mls/hr IV ASDIRECTED [facility] Stop: 05/09/16 13:00 Lactated Ringer's (Ringers, Lactated) Confirm Administered Dose 1,000 mls @ as directed .ROUTE .[facility]-MED ONE Stop: 05/09/16 08:37 Sodium Chloride (Normal Saline) Confirm Administered Dose 10 mls @ as directed .ROUTE .[facility]-MED ONE Stop: 05/09/16 08:39 Lidocaine HCl (Xylocaine-Mpf 1%) Confirm Administered Dose 2 mls @ as directed .ROUTE .[facility]-MED ONE Stop: 05/09/16 09:24 Lactated Ringer's (Ringers, Lactated) Confirm Administered Dose 1,000 mls @ as directed .ROUTE .STK-MED ONE Stop: 05/09/16 11:10 Lactated Ringer's (Ringers, Lactated) 500 mls @ 500 mls/hr IV .BOLUS ONE Stop: 05/09/16 14:59 Last Admin: 05/09/16 14:03 Dose: 500 mls/hr Dextrose/Lactated Ringer's (Dextrose 5%-Lactated Ringers) 1,000 mls @ 200 mls/ hr IV ASDIRECTED [facility] Stop: 05/10/16 17:59 Last Admin: 05/10/16 15:05 Dose: 200 mls/hr Cefoxitin Sodium 2 gm/ Sodium (Chloride) 50 mls @ 100 mls/hr IV Q6H [facility] Last Admin: 05/12/16 03:39 Dose: 100 mls/hr Acetaminophen 1,000 mg/ Premix 100 mls @ 400 mls/hr IV Q6H [facility] Stop: 05/10/16 04:14 Last Admin: 05/10/16 04:19 Dose: 400 mls/hr Ketamine HCl 100 mg/ Sodium (Chloride) 101 mls @ as directed IV .STK-MED ONE Stop: 05/09/16 09:46 Dextrose/Lactated Ringer's (Dextrose 5%-Lactated Ringers) 1,000 mls @ 100 mls/ hr IV ASDIRECTED [facility] Last Admin: 05/13/16 02:59 Dose: 100 mls/hr Magnesium Sulfate 2 gm/ Sodium (Chloride) 54 mls @ 27 mls/hr IV ONETIME ONE Stop: 05/13/16 11:59 Last Admin: 05/13/16 10:01 Dose: 27 mls/hr Magnesium Sulfate 2 gm/ Premix 50 mls @ 25 mls/hr IV Q6H [facility] Stop: 05/15/16 05:59 Last Admin: 05/14/16 04:16 Dose: 25 mls/hr Potassium Phosphate 20 mmole/ (Sodium Chloride) 256.6667 mls @ 85 mls/hr IV Q3H [facility] Stop: 05/13/16 18:59 Last Admin: 05/13/16 19:49 Dose: 85 mls/hr Dextrose/Lactated Ringer's (Dextrose 5%-Lactated Ringers) 1,000 mls @ 80 mls/ hr IV ASDIRECTED [facility] Stop: 05/14/16 14:29 Last Admin: 05/13/16 18:20 Dose: 25 mls/hr Meropenem 500 mg/ Sodium (Chloride) 50 mls @ 100 mls/hr IV ONETIME ONE Stop: 05/13/16 18:29 Last Admin: 05/13/16 18:28 Dose: 100 mls/hr Sodium Chloride (Normal Saline) 70 mls @ 3 mls/sec IV ASDIRECTED [facility] Last Admin: 05/13/16 19:22 Dose: 3 mls/sec Aztreonam 1 gm/ Sodium (Chloride) 50 mls @ 100 mls/hr IV Q8HR [facility] Last Admin: 05/14/16 05:39 Dose: 100 mls/hr Sodium Chloride (Normal Saline) Confirm Administered Dose 10 mls @ as directed .ROUTE .STK-MED ONE Stop: 05/14/16 08:52 Sodium Chloride (Normal Saline) Confirm Administered Dose 10 mls @ as directed .ROUTE .STK-MED ONE Stop: 05/14/16 09:28 Lactated Ringer's (Ringers, Lactated) Confirm Administered Dose 1,000 mls @ as directed .ROUTE .STK-MED ONE Stop: 05/14/16 09:34 Ibuprofen (Motrin) 600 mg PO Q6H [facility] Last Admin: 05/13/16 05:24 Dose: Not Given Inulin (Fiber Choice) 4.5 gm PO BID [facility] Last Admin: 05/13/16 20:19 Dose: Not Given Iohexol (Omnipaque-300) 50 ml PO .ASDIRECTED [facility] Last Admin: 05/10/16 03:46 Dose: 50 ml Iopamidol (Isovue-300 (61%)) 100 ml IV . DIRECTED [facility] Last Admin: 05/13/16 19:22 Dose: 90 ml Ketamine HCl (Ketalar) 30 mg IV ASDIRECTED [facility] Stop: 05/09/16 11:00 Ketamine HCl (Ketalar) 30 mg IV .STK-MED ONE Stop: 05/09/16 09:46 Ketamine HCl (Ketalar) Confirm Administered Dose 500 mg .ROUTE .STK-MED ONE Stop: 05/14/16 08:51 Lactobacillus Rhamnosus (Culturelle) 2 cap PO BID [facility] Last Admin: 05/13/16 20:18 Dose: 2 cap Lidocaine/Epinephrine (Xylocaine 1% With Epinephrine 1:100,000) Confirm Administered Dose 50 ml .ROUTE .[facility] ONE Stop: 05/11/16 06:49 Last Admin: 05/11/16 09:09 Dose: 32 ml Meperidine HCl (Demerol) 50 mg IM ASDIRECTED PRN PRN Reason: PAIN Stop: 05/10/16 14:45 Meropenem (Merrem) Confirm Administered Dose 500 mg .ROUTE .[facility] ONE Stop: 05/09/16 08:14 Last Admin: 05/09/16 10:24 Dose: 500 mg Meropenem (Merrem) Confirm Administered Dose 500 mg .ROUTE .[facility] ONE Stop: 05/11/16 06:49 Last Admin: 05/11/16 09:10 Dose: 500 mg Meropenem (Merrem) Confirm Administered Dose 500 mg .ROUTE .[facility] ONE Stop: 05/14/16 07:31 Last Admin: 05/14/16 10:19 Dose: 500 mg Meropenem (Merrem) Confirm Administered Dose 500 mg .ROUTE .[facility] ONE Stop: 05/14/16 10:03 Last Admin: 05/14/16 10:19 Dose: 500 mg Metoclopramide HCl (Reglan) 10 mg IV Q6H [facility] Last Admin: 05/14/16 08:03 Dose: 10 mg Midazolam HCl (Versed 1 Mg/Ml) Confirm Administered Dose 2 mg .ROUTE .ST-MED ONE Stop: 05/14/16 07:44 Naloxone HCl (Narcan) 0.4 mg IV ASDIRECTED PRN PRN Reason: ITCHING Neostigmine Methylsulfate (Neostigmine) Confirm Administered Dose 5 mg .ROUTE .ST-MED ONE Stop: 05/09/16 08:37 Neostigmine Methylsulfate (Neostigmine) Confirm Administered Dose 5 mg .ROUTE .[facility] ONE Stop: 05/14/16 07:44 Scopolamine Patch (Check) 1 each TOP DAILY [facility] Last Admin: 05/13/16 14:37 Dose: Not Given Ondansetron HCl (Zofran) Confirm Administered Dose 4 mg .ROUTE .[facility] ONE Stop: 05/09/16 08:37 Ondansetron HCl (Zofran) Confirm Administered Dose 4 mg .ROUTE .STK-MED ONE Stop: 05/14/16 07:44 Pantoprazole Sodium (Protonix Iv) 40 mg IVPUSH Q24H [facility] Last Admin: 05/11/16 16:53 Dose: 40 mg Pantoprazole Sodium (Protonix) 40 mg PO Q24H [facility] Last Admin: 05/13/16 16:59 Dose: 40 mg Phenylephrine HCl (Yan-Synephrine) Confirm Administered Dose 10 mg .ROUTE .STK- MED ONE Stop: 05/14/16 09:27 Propofol (Diprivan 20 Ml) Confirm Administered Dose 200 mg .ROUTE .STK-MED ONE Stop: 05/09/16 08:37 Propofol (Diprivan 20 Ml) Confirm Administered Dose 200 mg .ROUTE .STK-MED ONE Stop: 05/11/16 07:00 Propofol (Diprivan 20 Ml) Confirm Administered Dose 200 mg .ROUTE .ST-MED ONE Stop: 05/14/16 07:44 Rocuronium Babb (Zemuron) Confirm Administered Dose 100 mg .ROUTE .ST-MED ONE Stop: 05/09/16 08:37 Rocuronium Babb (Zemuron) Confirm Administered Dose 50 mg .ROUTE .STK-MED ONE Stop: 05/14/16 07:44 Scopolamine (Transderm-Scop) 1.5 mg TOP Q72H [facility] Stop: 05/12/16 06:00 Last Admin: 05/09/16 07:53 Dose: 1.5 mg Scopolamine (Transderm-Scop) Confirm Administered Dose 1.5 mg .ROUTE .ST-MED ONE Stop: 05/09/16 08:37 Scopolamine (Transderm-Scop) 1.5 mg TOP ASDIRECTED [facility] Stop: 05/12/16 16:00 Scopolamine (Transderm-Scop) 1.5 mg TOP Q72H [facility] Last Admin: 05/12/16 09:17 Dose: 1.5 mg Sodium Chloride (Saline Flush) 10 ml FLUSH ONETIME ONE Stop: 05/13/16 18:10 Last Admin: 05/13/16 19:22 Dose: 10 ml Succinylcholine Chloride (Succinylcholine In Ns Pf) Confirm Administered Dose 200 mg .ROUTE .STK-MED ONE Stop: 05/09/16 08:37 Succinylcholine Chloride (Succinylcholine In Ns Pf) Confirm Administered Dose 200 mg .ROUTE .STK-MED ONE Stop: 05/14/16 07:44 - Exam Quality Assessment: supplemental oxygen, urine catheter General: alert, cooperative, mild distress HEENT: Pupils equal Neck: supple Lungs: Decreased breath sounds (Left lung base), Crackles (Left lung base). No : Normal respiratory effort (Increased respiratory rate), Wheezing Cardiovascular: regular rhythm, tachycardia, murmurs Extremities: no cyanosis, edema (Pitting lower extremity edema) Skin: warm, dry Psy/Mental Status: alert, anxious Consult PN Assessment/Plan POD#: 0 Procedures: Procedures ASSAY OF LACTIC ACID (03/04/16) ASSAY OF MAGNESIUM (04/07/16) ASSAY OF PHOSPHORUS (04/07/16) ASSAY THYROID STIM HORMONE (10/08/15) BLOOD TYPING SEROLOGIC ABO (04/14/15) BLOOD TYPING SEROLOGIC RH(D) (04/14/15) C-REACTIVE PROTEIN (04/07/16) COMPLETE CBC AUTOMATED (04/07/16) COMPLETE CBC W/AUTO DIFF WBC (04/07/16) COMPREHEN METABOLIC PANEL (04/07/16) CT ABD & PELV W/CONTRAST (03/04/16) CULTURE SCREEN ONLY (11/10/15) ELECTROCARDIOGRAM TRACING (04/14/15) EMERGENCY DEPT VISIT (04/07/16) HYDRATE IV INFUSION ADD-ON (04/07/16) MEASURE BLOOD OXYGEN LEVEL (01/01/16) METABOLIC PANEL TOTAL CA (03/04/16) PT EVALUATION (11/10/15) RBC ANTIBODY SCREEN (04/14/15) ROUTINE VENIPUNCTURE (04/07/16) SPECIAL STAINS GROUP 2 (04/14/15) THER/PROPH/DIAG INJ IV PUSH (04/07/16) THER/PROPH/DIAG IV INF ADDON (03/04/16) THER/PROPH/DIAG IV INF INIT (03/04/16) THERAPEUTIC ACTIVITIES (11/10/15) TISSUE EXAM BY PATHOLOGIST (01/01/16) TISSUE EXAM BY PATHOLOGIST (01/01/16) TISSUE EXAM BY PATHOLOGIST (04/14/15) TISSUE EXAM BY PATHOLOGIST (04/14/15) TX/PRO/DX INJ NEW DRUG ADDON (04/07/16) URINALYSIS AUTO W/SCOPE (04/07/16) X-RAY EXAM OF ABDOMEN (04/07/16) X-RAY EXAM SERIES ABDOMEN (04/07/16) X-RAY UPPER GI DELAY W/O KUB (03/04/16) X-RAY UPPER GI&SMALL INTEST (04/07/16) (1) Elevated bilirubin SNOMED Code(s): 001075868 Code(s): R17 - UNSPECIFIED JAUNDICE Current Visit: Yes Problem List Initiated/Reviewed/Updated: Yes My Orders last 24 hours: My Active Orders 05/13/16 18:00 Menodza Catheter Insertion [Insert Urinary Catheter] [OM.PC] Q24H Urinary Catheter Assessment [RC] Q6H Plan: Assessment and Plan - Abdominal abscess with peritonitis secondary to JJ leak - status post exploratory laparotomy this morning. She's having a fair amount of pain this afternoon. She is tachycardic and requiring supplemental oxygen. Gram stain with gram-negative rods. Cultures pending. -Agree with broad-spectrum antibiotics -Followup cultures -additional postop cares per surgical team Elevated bilirubin with mild elevation of AST and ALT - history of similar elevations following surgery though not bilirubin to this extent. Levels are normal today. I would not be surprised if they rise again in the next couple of days since she had surgery today. -diuresis as below -Labs in the morning Delirium - probably multifactorial with medications such as pain medications, cyclobenzaprine and scopolamine patch. Somnolent but she did just have surgery. -Minimize sedating medications as able S/P colectomy - post op day 4 - had been stable up through yesterday but has deteriorated overnight. -Postop cares per surgical team Eduard Bedolla M.D.
[2016-05-15] MEDS: Lactated Ringers 1,000 ML IV SCH ×2 (00:13→22:22)
[2016-05-15] MEDS: Meropenem 500 MG in Sodium Chloride 0.9% 50 ML IV SCH ×4 (03:52→22:19)
[2016-05-15] MEDS: 1: AA 5%/Calcium/D15W/Lytes 1,000 ML with MVI, Adult with Vitamin K 10 ML, Chromium/Copp IV SCH ×6 (03:52→15:31)
[2016-05-15] MEDS: Acetaminophen 1,000 MG in Premix Bag 1 BAG IV SCH ×2 (04:25→10:12)
[2016-05-15] MEDS: Aztreonam/Dextrose-Water 1 GM in Premix Bag 1 BAG IV SCH ×3 (05:17→23:05)
[2016-05-15] MEDS: CHECK FENTANYL PATCH DAILY TOP SCH (09:06)
[2016-05-15] MEDS: Albumin 25% 50 ML IV SCH ×4 (09:17→12:14)
--- NOTE | 2016-05-15 09:29 | PCM.CONSN ---
- General Info Date of Service: 05/15/16 Functional Status: Reports: pain controlled, ambulating - Review of Systems General: Reports: weakness. Denies: fever Gastrointestinal: Reports: Abdominal pain Systems Review Comment:: No acute events overnight. Clinically she has stabilized following surgery yesterday. Abdominal pain has a fair amount better. No fevers overnight. Culture from abdominal surgery is growing 2 different gram-negative rods. No complaints of shortness of breath but she does have a mild oxygen requirement at this time. Heart rate has come down into the normal range. Hepatic panel enzymes all normal today. - Patient Data Vitals - most recent: Last Vital Signs Temp 36.7 C 05/15/16 07:35 Pulse 95 05/15/16 05:34 Resp 12 05/15/16 07:35 BP 97/61 05/15/16 07:35 Pulse Ox 92 L 05/15/16 07:35 Weight - most recent: 60.781 kg I&O - last 24 hours: Intake & Output 05/14/16 05/15/16 05/15/16 22:59 06:59 14:59 Intake Total 1020 Output Total 507 393 90 Balance 513 -393 -90 Lab Results last 24 hrs: Laboratory Results - last 24 hr 05/15/16 05/15/16 Range/Units 04:48 04:48 WBC 16.0 H (4.5-11.0) K/uL RBC 3.33 (3.30-5.50) M/uL Hgb 9.2 L D (12.0-15.0) g/dL Hct 28.2 L (36.0-48.0) % MCV 85 (80-98) fL MCH 28 (27-31) pg MCHC 33 (32-36) % Plt Count 86 L (150-400) K/uL Sodium 135 L (140-148) mmol/L Potassium 3.9 (3.6-5.2) mmol/L Chloride 106 (100-108) mmol/L Carbon Dioxide 26 (21-32) mmol/L Anion Gap 6.9 (5.0-14.0) mmol/L BUN 31 H D (7-18) mg/dL Creatinine 0.7 (0.6-1.0) mg/dL Est Cr Clr Drug Dosing 85.08 mL/min Estimated GFR (MDRD) > 60 (>60) Glucose 123 H (74-106) mg/dL Calcium 7.7 L (8.5-10.1) mg/dL Phosphorus 2.7 (2.5-4.9) mg/dL Magnesium 2.5 H D (1.8-2.4) mg/dL Total Bilirubin 0.5 (0.2-1.0) mg/dL AST 21 (15-37) U/L ALT 30 (12-78) U/L Alkaline Phosphatase 99 (46-116) U/L Total Protein 4.0 L (6.4-8.2) g/dL Albumin 1.0 L (3.4-5.0) g/dL Globulin 3.0 (2.3-3.5) g/dL Albumin/Globulin Ratio 0.3 L (1.2-2.2) Dereje Results last 24 hrs: Microbiology 05/14/16 09:43 Anaerobic Culture - Preliminary Gallbladder NO GROWTH AFTER 1 DAY 05/14/16 09:43 Gram Stain - Final Abdomen - Abscess Wound Culture - Preliminary 05/11/16 23:55 Aerobic Blood Culture - Preliminary Blood - Venous NO GROWTH AFTER 3 DAYS Anaerobic Blood Culture - Preliminary NO GROWTH AFTER 3 DAYS 05/11/16 23:55 Aerobic Blood Culture - Preliminary Blood - Venous - Lab Draw NO GROWTH AFTER 3 DAYS Anaerobic Blood Culture - Preliminary NO GROWTH AFTER 3 DAYS Med Orders - Current: Current Medications Bacitracin (Bacitracin Oint 1 Gm) 1 dose TOP BID PRN PRN Reason: burn Last Admin: 05/12/16 20:31 Dose: 2 dose Dimethicone/Zinc Oxide (Rash Relief-Zinc Oxide [place]) 1 gm TOP ASDIRECTED PRN PRN Reason: Other Last Admin: 05/12/16 20:30 Dose: 1 bot Diphenhydramine HCl (Benadryl) 25 - 50 mg IVPUSH Q4H PRN PRN Reason: ITCHING Hydromorphone HCl (Dilaudid Weight [employer]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 Mg In Ns 30 Ml) 0 mg IV ASDIRECTED PRN; Protocol PRN Reason: [employer] PAIN CONTROL Last Admin: 05/14/16 13:09 Dose: 15 mg Hydroxyzine HCl (Vistaril) 100 mg IM Q4H PRN PRN Reason: PAIN NOT CONTROLLED BY FLAT C[employer]TER Meropenem 500 mg/ Sodium (Chloride) 50 mls @ 100 mls/hr IV Q6H [facility] Last Admin: 05/15/16 03:52 Dose: 100 mls/hr Aztreonam/Dextrose 1 gm/ (Premix) 50 mls @ 100 mls/hr IV Q8H [facility] Last Admin: 05/15/16 05:17 Dose: 100 mls/hr Multivitamins/Minerals 10 ml/Chromium/Copper/Manganese/Seleni/Zn 1 ml/ Amino Ac/ Electrol/Dextrose/Calcium 1,011 mls @ 82 mls/hr IV .BY DURATION [facility] Last Admin: 05/14/16 15:35 Dose: 82 mls/hr Amino Ac/Electrol/Dextrose/Calcium (Clinimix E 07/25) 1,000 mls @ 82 mls/hr IV .BY DURATION [facility] Last Admin: 05/15/16 03:52 Dose: 82 mls/hr Lactated Ringer's (Ringers, Lactated) 1,000 mls @ 100 mls/hr IV ASDIRECTED [facility] Last Admin: 05/15/16 00:13 Dose: 100 mls/hr Acetaminophen 1,000 mg/ Premix 100 mls @ 400 mls/hr IV Q6H [facility] Stop: 05/15/16 10:14 Last Admin: 05/15/16 04:25 Dose: 400 mls/hr Albumin Human (Flexbumin 25%) 50 mls @ 50 mls/hr IV Q24H [facility] Last Admin: 05/15/16 09:17 Dose: 50 mls/hr Albumin Human (Flexbumin 25%) 50 mls @ 50 mls/hr IV Q24H [facility] Albumin Human (Flexbumin 25%) 50 mls @ 50 mls/hr IV Q24H [facility] Albumin Human (Flexbumin 25%) 50 mls @ 50 mls/hr IV Q24H [facility] Potassium Phosphate 15 mmole/Lidocaine HCl 2 ml/ Sodium Chloride 157 mls @ 53 mls/hr IV Q3H [facility] Stop: 05/15/16 15:58 Naloxone HCl (Narcan) 0.1 mg IV ASDIRECTED PRN PRN Reason: decreased respiratory rate Ondansetron HCl (Zofran) 4 mg IVPUSH Q4H PRN PRN Reason: Nausea/Vomiting Last Admin: 05/13/16 02:10 Dose: 4 mg Pantoprazole Sodium (Protonix Iv) 40 mg IV Q24H [facility] Last Admin: 05/14/16 16:43 Dose: 40 mg Discontinued Medications Acetaminophen (Tylenol) 650 mg PO Q6H [facility] Last Admin: 05/14/16 04:16 Dose: 650 mg Albuterol/Ipratropium (Duoneb 3.0-0.5 Mg/3 Ml) 3 ml NEB ONETIME STA Stop: 05/13/16 19:09 Last Admin: 05/13/16 19:21 Dose: 3 ml Alvimopan (Entereg) 12 mg PO ONETIME ONE Stop: 05/09/16 08:31 Last Admin: 05/09/16 08:30 Dose: 12 mg Alvimopan (Entereg) 12 mg PO Q12H [facility] Stop: 05/16/16 09:01 Last Admin: 05/10/16 09:04 Dose: 12 mg Bisacodyl (Dulcolax) 10 mg PO BID [facility] Last Admin: 05/11/16 09:52 Dose: Not Given Bupivacaine HCl (Marcaine 0.5%) Confirm Administered Dose 50 ml .ROUTE .STK-MED ONE Stop: 05/11/16 06:49 Last Admin: 05/11/16 09:09 Dose: 32 ml Cefoxitin Sodium (Mefoxin) Confirm Administered Dose 2 gm .ROUTE .STK-MED ONE Stop: 05/09/16 06:55 Neomycin/Polymyxin 1 ml/ (Sodium Chloride 750 ml) 0 ml .XX ONETIME ONE Stop: 05/09/16 09:16 Last Admin: 05/09/16 13:25 Dose: Not Given Cyanocobalamin (Vitamin B12) 1,000 mcg IM ONETIME ONE Stop: 05/11/16 09:01 Last Admin: 05/11/16 09:53 Dose: 1,000 mcg Cyclobenzaprine HCl (Flexeril) 10 mg PO Q6H PRN PRN Reason: Muscle Spasm Last Admin: 05/13/16 06:22 Dose: 10 mg Dexamethasone (Dexamethasone) Confirm Administered Dose 4 mg .ROUTE .STK-MED ONE Stop: 05/09/16 08:37 Dexamethasone (Dexamethasone) Confirm Administered Dose 4 mg .ROUTE .STK-MED ONE Stop: 05/14/16 07:44 Diatrizoate Meglum/Diatrizoate Sod (Gastrografin 37%) 30 ml PO . DIRECTED [facility] Stop: 05/13/16 19:46 Last Admin: 05/13/16 19:33 Dose: 30 mg Diphenhydramine HCl (Benadryl) 25 mg IVPUSH Q6H PRN PRN Reason: ITCHING Diphenoxylate HCl/Atropine (Lomotil 0.025-2.5 Mg) 1 tab PO ONETIME ONE Stop: 05/12/16 10:36 Last Admin: 05/12/16 10:55 Dose: 1 tab Diphenoxylate HCl/Atropine (Lomotil 0.025-2.5 Mg) 1 tab PO Q6H PRN PRN Reason: Diarrhea Edrophonium Chloride (Enlon) Confirm Administered Dose 150 mg .ROUTE .STK-MED ONE Stop: 05/14/16 10:59 Fentanyl (Sublimaze) Confirm Administered Dose 500 mcg .ROUTE .STK-MED ONE Stop: 05/09/16 08:37 Fentanyl (Sublimaze) Confirm Administered Dose 100 mcg .ROUTE .STK-MED ONE Stop: 05/09/16 08:39 Fentanyl (Duragesic) 12 mcg TRDERM Q72H [facility] Last Admin: 05/13/16 13:15 Dose: Not Given Fentanyl (Sublimaze) Confirm Administered Dose 250 mcg .ROUTE .STK-MED ONE Stop: 05/14/16 07:44 Fentanyl (Duragesic) 25 mcg TRDERM Q72H [facility] Last Admin: 05/14/16 16:58 Dose: Not Given Furosemide (Lasix) 20 mg IVPUSH ONETIME ONE Stop: 05/13/16 18:01 Last Admin: 05/13/16 18:21 Dose: 20 mg Gabapentin (Neurontin) 300 mg PO ONETIME ONE Stop: 05/09/16 08:16 Last Admin: 05/09/16 07:53 Dose: 300 mg Gabapentin (Neurontin) 300 mg PO TID [facility] Last Admin: 05/12/16 21:54 Dose: 300 mg Glycopyrrolate () Confirm Administered Dose 1 mg .ROUTE .STK-MED ONE Stop: 05/09/16 08:37 Glycopyrrolate () Confirm Administered Dose 1 mg .ROUTE .STK-MED ONE Stop: 05/14/16 07:44 Heparin Sodium (Porcine) (Heparin Sodium) 5,000 units SUBCUT Q12H [facility] Stop: 05/10/16 20:00 Last Admin: 05/10/16 06:23 Dose: 5,000 units Heparin Sodium (Porcine) (Heparin Sodium) 5,000 units SUBCUT Q12H [facility] Heparin Sodium (Porcine) (Heparin Sodium) 5,000 units SUBCUT ONETIME ONE Stop: 05/10/16 17:01 Last Admin: 05/10/16 16:45 Dose: 5,000 units Heparin Sodium (Porcine) (Heparin Lock Flush 100 Units/Ml Syringe) 500 units FLUSH .STK-MED ONE Stop: 05/14/16 10:20 Last Admin: 05/14/16 10:19 Dose: 500 units Hydromorphone HCl (Dilaudid) 2 - 4 mg PO Q4H PRN PRN Reason: PAIN Last Admin: 05/14/16 02:12 Dose: 4 mg Hydroxyzine HCl (Vistaril) 75 - 100 mg IM Q4H PRN PRN Reason: PAIN NOT CONTROLLED BY [employer]AT [employer]TER Last Admin: 05/13/16 02:48 Dose: 100 mg Dextrose/Lactated Ringer's (Dextrose 5%-Lactated Ringers) 1,000 mls @ 100 mls/ hr IV ASDIRECTED [facility] Last Admin: 05/09/16 07:55 Dose: 100 mls/hr Cefoxitin Sodium 2 gm/ Sodium (Chloride) 50 mls @ 100 mls/hr IV ONETIME ONE Stop: 05/09/16 09:44 Last Admin: 05/09/16 09:08 Dose: 100 mls/hr Fentanyl 2,500 mcg/ Sodium (Chloride) 250 mls @ 0 mls/hr EPIDUR TITRATE [facility]; Titrate PRN Reason: Protocol Last Admin: 05/10/16 09:12 Dose: 10 ml/hr, 10 mls/hr Ketamine HCl 100 mg/ Sodium (Chloride) 100 mls @ 18 mls/hr IV ASDIRECTED [facility] Stop: 05/09/16 13:00 Lactated Ringer's (Ringers, Lactated) Confirm Administered Dose 1,000 mls @ as directed .ROUTE .ST-MED ONE Stop: 05/09/16 08:37 Sodium Chloride (Normal Saline) Confirm Administered Dose 10 mls @ as directed .ROUTE .[facility]-MED ONE Stop: 05/09/16 08:39 Lidocaine HCl (Xylocaine-Mpf 1%) Confirm Administered Dose 2 mls @ as directed .ROUTE .K-MED ONE Stop: 05/09/16 09:24 Lactated Ringer's (Ringers, Lactated) Confirm Administered Dose 1,000 mls @ as directed .ROUTE .[facility]-MED ONE Stop: 05/09/16 11:10 Lactated Ringer's (Ringers, Lactated) 500 mls @ 500 mls/hr IV .BOLUS ONE Stop: 05/09/16 14:59 Last Admin: 05/09/16 14:03 Dose: 500 mls/hr Dextrose/Lactated Ringer's (Dextrose 5%-Lactated Ringers) 1,000 mls @ 200 mls/ hr IV ASDIRECTED [facility] Stop: 05/10/16 17:59 Last Admin: 05/10/16 15:05 Dose: 200 mls/hr Multivitamins/Minerals 10 ml/Thiamine HCl 200 mg/ Chromium/Copper/Manganese/ Seleni/Zn 1 ml/ Dextrose/Lactated Ringer's 1,013 mls @ 100 mls/hr IV DAILY@ 1600 [facility] Last Admin: 05/14/16 16:33 Dose: Not Given Cefoxitin Sodium 2 gm/ Sodium (Chloride) 50 mls @ 100 mls/hr IV Q6H [facility] Last Admin: 05/12/16 03:39 Dose: 100 mls/hr Acetaminophen 1,000 mg/ Premix 100 mls @ 400 mls/hr IV Q6H [facility] Stop: 05/10/16 04:14 Last Admin: 05/10/16 04:19 Dose: 400 mls/hr Ketamine HCl 100 mg/ Sodium (Chloride) 101 mls @ as directed IV .[facility]-MED ONE Stop: 05/09/16 09:46 Dextrose/Lactated Ringer's (Dextrose 5%-Lactated Ringers) 1,000 mls @ 100 mls/ hr IV ASDIRECTED [facility] Last Admin: 05/13/16 02:59 Dose: 100 mls/hr Magnesium Sulfate 2 gm/ Sodium (Chloride) 54 mls @ 27 mls/hr IV ONETIME ONE Stop: 05/13/16 11:59 Last Admin: 05/13/16 10:01 Dose: 27 mls/hr Magnesium Sulfate 2 gm/ Premix 50 mls @ 25 mls/hr IV Q6H [facility] Stop: 05/15/16 05:59 Last Admin: 05/14/16 04:16 Dose: 25 mls/hr Potassium Phosphate 20 mmole/ (Sodium Chloride) 256.6667 mls @ 85 mls/hr IV Q3H [facility] Stop: 05/13/16 18:59 Last Admin: 05/13/16 19:49 Dose: 85 mls/hr Dextrose/Lactated Ringer's (Dextrose 5%-Lactated Ringers) 1,000 mls @ 80 mls/ hr IV ASDIRECTED [facility] Stop: 05/14/16 14:29 Last Admin: 05/13/16 18:20 Dose: 25 mls/hr Meropenem 500 mg/ Sodium (Chloride) 50 mls @ 100 mls/hr IV ONETIME ONE Stop: 05/13/16 18:29 Last Admin: 05/13/16 18:28 Dose: 100 mls/hr Sodium Chloride (Normal Saline) 70 mls @ [facility] Admin: 05/13/16 19:22 Dose: 3 mls/sec Aztreonam 1 gm/ Sodium (Chloride) 50 mls @ 100 mls/hr IV Q8HR [facility] Last Admin: 05/14/16 05:39 Dose: 100 mls/hr Sodium Chloride (Normal Saline) Confirm Administered Dose 10 mls @ as directed .ROUTE .[facility] ONE Stop: 05/14/16 08:52 Sodium Chloride (Normal Saline) Confirm Administered Dose 10 mls @ as directed .ROUTE .[facility] ONE Stop: 05/14/16 09:28 Lactated Ringer's (Ringers, Lactated) Confirm Administered Dose 1,000 mls @ as directed .ROUTE .[facility] ONE Stop: 05/14/16 09:34 Ibuprofen (Motrin) 600 mg PO Q6H [facility] Last Admin: 05/13/16 05:24 Dose: Not Given Inulin (Fiber Choice) 4.5 gm PO BID [facility] Last Admin: 05/13/16 20:19 Dose: Not Given Iohexol (Omnipaque-300) 50 ml PO .ASDIRECTED [facility] Last Admin: 05/10/16 03:46 Dose: 50 ml Iopamidol (Isovue-300 (61%)) 100 ml IV . DIRECTED [facility] Last Admin: 05/13/16 19:22 Dose: 90 ml Ketamine HCl (Ketalar) 30 mg IV ASDIRECTED [facility] Stop: 05/09/16 11:00 Ketamine HCl (Ketalar) 30 mg IV .STK-MED ONE Stop: 05/09/16 09:46 Ketamine HCl (Ketalar) Confirm Administered Dose 500 mg .ROUTE .STK-MED ONE Stop: 05/14/16 08:51 Lactobacillus Rhamnosus (Culturelle) 2 cap PO BID [facility] Last Admin: 05/13/16 20:18 Dose: 2 cap Lidocaine/Epinephrine (Xylocaine 1% With Epinephrine 1:100,000) Confirm Administered Dose 50 ml .ROUTE .STK-MED ONE Stop: 05/11/16 06:49 Last Admin: 05/11/16 09:09 Dose: 32 ml Meperidine HCl (Demerol) 50 mg IM ASDIRECTED PRN PRN Reason: PAIN Stop: 05/10/16 14:45 Meropenem (Merrem) Confirm Administered Dose 500 mg .ROUTE .STK-MED ONE Stop: 05/09/16 08:14 Last Admin: 05/09/16 10:24 Dose: 500 mg Meropenem (Merrem) Confirm Administered Dose 500 mg .ROUTE .STK-MED ONE Stop: 05/11/16 06:49 Last Admin: 05/11/16 09:10 Dose: 500 mg Meropenem (Merrem) Confirm Administered Dose 500 mg .ROUTE .STK-MED ONE Stop: 05/14/16 07:31 Last Admin: 05/14/16 10:19 Dose: 500 mg Meropenem (Merrem) Confirm Administered Dose 500 mg .ROUTE .STK-MED ONE Stop: 05/14/16 10:03 Last Admin: 05/14/16 10:19 Dose: 500 mg Metoclopramide HCl (Reglan) 10 mg IV Q6H [facility] Last Admin: 05/14/16 08:03 Dose: 10 mg Midazolam HCl (Versed 1 Mg/Ml) Confirm Administered Dose 2 mg .ROUTE .STK-MED ONE Stop: 05/14/16 07:44 Naloxone HCl (Narcan) 0.4 mg IV ASDIRECTED PRN PRN Reason: ITCHING Neostigmine Methylsulfate (Neostigmine) Confirm Administered Dose 5 mg .ROUTE .STK-MED ONE Stop: 05/09/16 08:37 Neostigmine Methylsulfate (Neostigmine) Confirm Administered Dose 5 mg .ROUTE .STK-MED ONE Stop: 05/14/16 07:44 Scopolamine Patch (Check) 1 each TOP DAILY [facility] Last Admin: 05/13/16 14:37 Dose: Not Given Check Fentanyl Patch (Daily) 1 each TOP DAILY [facility] Last Admin: 05/15/16 09:06 Dose: Not Given Ondansetron HCl (Zofran) Confirm Administered Dose 4 mg .ROUTE .STK-MED ONE Stop: 05/09/16 08:37 Ondansetron HCl (Zofran) Confirm Administered Dose 4 mg .ROUTE .STK-MED ONE Stop: 05/14/16 07:44 Pantoprazole Sodium (Protonix Iv) 40 mg IVPUSH Q24H [facility] Last Admin: 05/11/16 16:53 Dose: 40 mg Pantoprazole Sodium (Protonix) 40 mg PO Q24H [facility] Last Admin: 05/13/16 16:59 Dose: 40 mg Phenylephrine HCl (Yan-Synephrine) Confirm Administered Dose 10 mg .ROUTE .STK- MED ONE Stop: 05/14/16 09:27 Propofol (Diprivan 20 Ml) Confirm Administered Dose 200 mg .ROUTE .STK-MED ONE Stop: 05/09/16 08:37 Propofol (Diprivan 20 Ml) Confirm Administered Dose 200 mg .ROUTE .STK-MED ONE Stop: 05/11/16 07:00 Propofol (Diprivan 20 Ml) Confirm Administered Dose 200 mg .ROUTE .STK-MED ONE Stop: 05/14/16 07:44 Rocuronium Jesse (Zemuron) Confirm Administered Dose 100 mg .ROUTE .STK-MED ONE Stop: 05/09/16 08:37 Rocuronium Jesse (Zemuron) Confirm Administered Dose 50 mg .ROUTE .STK-MED ONE Stop: 05/14/16 07:44 Scopolamine (Transderm-Scop) 1.5 mg TOP Q72H [facility] Stop: 05/12/16 06:00 Last Admin: 05/09/16 07:53 Dose: 1.5 mg Scopolamine (Transderm-Scop) Confirm Administered Dose 1.5 mg .ROUTE .STK-MED ONE Stop: 05/09/16 08:37 Scopolamine (Transderm-Scop) 1.5 mg TOP ASDIRECTED [facility] Stop: 05/12/16 16:00 Scopolamine (Transderm-Scop) 1.5 mg TOP Q72H [facility] Last Admin: 05/12/16 09:17 Dose: 1.5 mg Sodium Chloride (Saline Flush) 10 ml FLUSH ONETIME ONE Stop: 05/13/16 18:10 Last Admin: 05/13/16 19:22 Dose: 10 ml Succinylcholine Chloride (Succinylcholine In Ns Pf) Confirm Administered Dose 200 mg .ROUTE .STK-MED ONE Stop: 05/09/16 08:37 Succinylcholine Chloride (Succinylcholine In Ns Pf) Confirm Administered Dose 200 mg .ROUTE .STK-MED ONE Stop: 05/14/16 07:44 - Exam Quality Assessment: supplemental oxygen, urine catheter General: alert, oriented, cooperative, no acute distress HEENT: Pupils equal Neck: supple Lungs: Normal respiratory effort, Decreased breath sounds (mild left lung base) , Crackles (left lower lung) Cardiovascular: regular rhythm, tachycardia Abdomen: soft, no distension, abnormal bowel sounds (hypoactive) Extremities: no cyanosis, edema (mild bilateral ankle edema) Skin: warm, dry Psy/Mental Status: alert, normal affect Consult PN Assessment/Plan POD#: 1 Procedures: Procedures ASSAY OF LACTIC ACID (03/04/16) ASSAY OF MAGNESIUM (04/07/16) ASSAY OF PHOSPHORUS (04/07/16) ASSAY THYROID STIM HORMONE (10/08/15) BLOOD TYPING SEROLOGIC ABO (04/14/15) BLOOD TYPING SEROLOGIC RH(D) (04/14/15) C-REACTIVE PROTEIN (04/07/16) COMPLETE CBC AUTOMATED (04/07/16) COMPLETE CBC W/AUTO DIFF WBC (04/07/16) COMPREHEN METABOLIC PANEL (04/07/16) CT ABD & PELV W/CONTRAST (03/04/16) CULTURE SCREEN ONLY (11/10/15) ELECTROCARDIOGRAM TRACING (04/14/15) EMERGENCY DEPT VISIT (04/07/16) HYDRATE IV INFUSION ADD-ON (04/07/16) MEASURE BLOOD OXYGEN LEVEL (01/01/16) METABOLIC PANEL TOTAL CA (03/04/16) PT EVALUATION (11/10/15) RBC ANTIBODY SCREEN (04/14/15) ROUTINE VENIPUNCTURE (04/07/16) SPECIAL STAINS GROUP 2 (04/14/15) THER/PROPH/DIAG INJ IV PUSH (04/07/16) THER/PROPH/DIAG IV INF ADDON (03/04/16) THER/PROPH/DIAG IV INF INIT (03/04/16) THERAPEUTIC ACTIVITIES (11/10/15) TISSUE EXAM BY PATHOLOGIST (01/01/16) TISSUE EXAM BY PATHOLOGIST (01/01/16) TISSUE EXAM BY PATHOLOGIST (04/14/15) TISSUE EXAM BY PATHOLOGIST (04/14/15) TX/PRO/DX INJ NEW DRUG ADDON (04/07/16) URINALYSIS AUTO W/SCOPE (04/07/16) X-RAY EXAM OF ABDOMEN (04/07/16) X-RAY EXAM SERIES ABDOMEN (04/07/16) X-RAY UPPER GI DELAY W/O KUB (03/04/16) X-RAY UPPER GI&SMALL INTEST (04/07/16) (1) Elevated bilirubin SNOMED Code(s): 223065815 Code(s): R17 - UNSPECIFIED JAUNDICE Current Visit: Yes Problem List Initiated/Reviewed/Updated: Yes Plan: Assessment and Plan - Abdominal abscess with peritonitis secondary to JJ leak - status post exploratory laparotomy 3/4. Much less abdominal pain today. Heart rate has improved and is now in the normal range. Cultures obtained during surgery are growing 2 different gram-negative rods. -Agree with broad-spectrum antibiotics -Followup cultures -additional postop cares per surgical team Elevated bilirubin with mild elevation of AST and ALT - history of similar elevations following surgery though not bilirubin to this extent. Levels have remained normal so far. -Labs in the morning Delirium - probably multifactorial with medications such as pain medications, cyclobenzaprine and scopolamine patch. Somnolent but she did just have surgery. -Minimize sedating medications as able S/P colectomy - post op day 6 - recovery has been delayed by intra-abdominal abscess as discussed above. -Postop cares per surgical team Eduard Bedolla M.D.
[2016-05-15] MEDS: Potassium Phosphates 15 MMOLE, Lidocaine 1% 2 ML in Sodium Chloride 0.9% 150 ML IV SCH ×2 (10:12→13:04)
[2016-05-15] MEDS: Pantoprazole 40 MG Vial IV SCH (17:28)
[2016-05-15] MEDS: Ondansetron 4 MG/2 ML SDV IVPUSH PRN (20:31)
[2016-05-16] MEDS: 1: AA 5%/Calcium/D15W/Lytes 1,000 ML with MVI, Adult with Vitamin K 10 ML, Chromium/Copp IV SCH ×9 (03:41→23:30)
[2016-05-16] MEDS: Meropenem 500 MG in Sodium Chloride 0.9% 50 ML IV SCH ×4 (03:42→21:00)
[2016-05-16] MEDS: Aztreonam/Dextrose-Water 1 GM in Premix Bag 1 BAG IV SCH ×3 (05:34→21:44)
[2016-05-16] MEDS: HYDROmorphone/Normal Saline 15 MG/30 ML PCA IV PRN (06:22)
--- NOTE | 2016-05-16 07:35 | PN ---
DATE OF SERVICE: 05/12/2016 The patient developed temperatures of 101 overnight. Temperature this morning is 99.8. She generally has felt a little bit crummy, but not in any specific way, other than she has quite a bit in the way of incisional pain. We will check a UA today and work on increasing her pulmonary toilet. She has been having quite frequent loose bowel movements, and we will check the stool for C. difficile enterotoxin, discontinue the cefoxitin, and if she is negative in terms of the C. difficile, we would at that point start something like Imodium to try to slow things down. In terms of her bowels, we will add the probiotic capsules to the regimen as well today. The patient appears at this point to have inadequate pain control, and we will add some Dilaudid along with Flexeril on a p.r.n. basis to the other medications. Kit Duke MD /[id number]
--- NOTE | 2016-05-16 07:59 | PN ---
DATE OF SERVICE: 05/13/2016 The patient has been afebrile with stable vital signs. She is complaining, however, of quite a bit in the way of nausea. The bowel movements have slowed down, having just one in the last 24 hours. At this point, we will discontinue the gabapentin and ibuprofen, as well as the Lomitil, all of which may be contributing to the nausea, and we will use Imodium p.r.n. Labs are worrisome in terms of white count of 1.5 and the bilirubin up into the 3.8 range. She had a previous cholecystectomy, and the LACIE drains look to be unremarkable. The plan will be to consult Dr. Bedolla regarding those issues. She will be put on some Reglan at this point, and a fentanyl patch will be placed on to help with regard to the pain management. Kit Duke MD /[phone]
[2016-05-16] MEDS: Albumin 25% 50 ML IV SCH ×4 (08:24→12:19)
[2016-05-16] MEDS: SCOPOLAMINE PATCH CHECK TOP SCH (09:03)
[2016-05-16] MEDS: Acetaminophen Soln 650 MG/20.3 ML UD Cup PO SCH (09:03)
[2016-05-16] MEDS: Inulin 1.5 GM Chewable Tab PO SCH (09:03)
[2016-05-16] MEDS: Magnesium Sulfate/Water 2 GM in Premix Bag 1 BAG IV SCH (09:03)
[2016-05-16] MEDS: Lactobacillus Rhamnosus GG (Probiotic) Cap PO SCH (09:04)
[2016-05-16] MEDS: Ondansetron 4 MG/2 ML SDV IVPUSH PRN (09:55)
--- NOTE | 2016-05-16 10:28 | PCM.CONSN ---
- General Info Date of Service: 05/16/16 - Review of Systems General: Reports: weakness. Denies: fever, chills Pulmonary: Reports: no symptoms Cardiovascular: Reports: no symptoms Gastrointestinal: Reports: Abdominal pain. Denies: Nausea, Vomiting Systems Review Comment:: Ms. Hanks has remained stable over the past 24 hours, continues to experience significant incisional pain. Vital signs have been fairly stable and she has remained afebrile. - Patient Data Vitals - most recent: Last Vital Signs Temp 97.9 F 05/16/16 08:00 Pulse 104 H 05/16/16 08:00 Resp 19 05/16/16 08:00 BP 131/72 05/16/16 08:00 Pulse Ox 95 05/16/16 08:00 Weight - most recent: 133 lb 15.987 oz I&O - last 24 hours: Intake & Output 05/15/16 05/16/16 05/16/16 22:59 06:59 14:59 Intake Total 2784 2214 Output Total 766 1135 200 Balance 2017 1079 -200 Lab Results last 24 hrs: Laboratory Results - last 24 hr 05/16/16 05/16/16 05/16/16 Range/Units 04:17 04:17 04:30 WBC 13.1 H (4.5-11.0) K/uL RBC 2.89 L (3.30-5.50) M/uL Hgb 8.2 L (12.0-15.0) g/dL Hct 24.5 L (36.0-48.0) % MCV 85 (80-98) fL MCH 28 (27-31) pg MCHC 34 (32-36) % Plt Count 56 L (150-400) K/uL Sodium 145 (140-148) mmol/L Potassium 3.9 (3.6-5.2) mmol/L Chloride 112 H (100-108) mmol/L Carbon Dioxide 28 (21-32) mmol/L Anion Gap 8.9 (5.0-14.0) mmol/L BUN 30 H (7-18) mg/dL Creatinine 0.7 (0.6-1.0) mg/dL Est Cr Clr Drug Dosing 85.08 mL/min Estimated GFR (MDRD) > 60 (>60) Glucose 105 (74-106) mg/dL Calcium 7.8 L (8.5-10.1) mg/dL Phosphorus 2.6 (2.5-4.9) mg/dL Magnesium 1.9 D (1.8-2.4) mg/dL Total Bilirubin 0.4 (0.2-1.0) mg/dL AST 17 (15-37) U/L ALT 22 (12-78) U/L Alkaline Phosphatase 68 69 (46-116) U/L Total Protein 4.3 L (6.4-8.2) g/dL Albumin 1.5 L (3.4-5.0) g/dL Globulin 2.8 (2.3-3.5) g/dL Albumin/Globulin Ratio 0.5 L (1.2-2.2) Dereje Results last 24 hrs: Microbiology 05/14/16 09:43 Anaerobic Culture - Preliminary Gallbladder NO GROWTH AFTER 2 DAYS 05/14/16 09:43 Gram Stain - Final Abdomen - Abscess Wound Culture - Final Escherichia Coli Enterobacter Dissolvens 05/11/16 23:55 Aerobic Blood Culture - Preliminary Blood - Venous NO GROWTH AFTER 4 DAYS Anaerobic Blood Culture - Preliminary NO GROWTH AFTER 4 DAYS 05/11/16 23:55 Aerobic Blood Culture - Preliminary Blood - Venous - Lab Draw NO GROWTH AFTER 4 DAYS Anaerobic Blood Culture - Preliminary NO GROWTH AFTER 4 DAYS Med Orders - Current: Current Medications Bacitracin (Bacitracin Oint 1 Gm) 1 dose TOP BID PRN PRN Reason: burn Last Admin: 05/12/16 20:31 Dose: 2 dose Dimethicone/Zinc Oxide (Rash Relief-Zinc Oxide [place]) 1 gm TOP ASDIRECTED PRN PRN Reason: Other Last Admin: 05/12/16 20:30 Dose: 1 bot Diphenhydramine HCl (Benadryl) 25 - 50 mg IVPUSH Q4H PRN PRN Reason: ITCHING Hydromorphone HCl (Dilaudid Adjunct Psychology Instructor 15 Mg In Ns 30 Ml) 0 mg IV ASDIRECTED PRN; Protocol PRN Reason: MERCHANDISE CLERK PAIN CONTROL Last Admin: 05/16/16 06:22 Dose: 15 mg Hydroxyzine HCl (Vistaril) 100 mg IM Q4H PRN PRN Reason: PAIN NOT CONTROLLED BY MERCHANDISE CLERK Meropenem 500 mg/ Sodium (Chloride) 50 mls @ 100 mls/hr IV Q6H [facility] Last Admin: 05/16/16 03:42 Dose: 100 mls/hr Aztreonam/Dextrose 1 gm/ (Premix) 50 mls @ 100 mls/hr IV Q8H [facility] Last Admin: 05/16/16 05:34 Dose: 100 mls/hr Multivitamins/Minerals 10 ml/Chromium/Copper/Manganese/Seleni/Zn 1 ml/ Amino Ac/ Electrol/Dextrose/Calcium 1,011 mls @ 82 mls/hr IV .BY DURATION [facility] Stop: 05/16/16 10:59 Last Admin: 05/15/16 15:31 Dose: 82 mls/hr Amino Ac/Electrol/Dextrose/Calcium (Clinimix E 5/15) 1,000 mls @ 82 mls/hr IV .BY DURATION [facility] Stop: 05/16/16 10:59 Last Admin: 05/16/16 03:41 Dose: 82 mls/hr Lactated Ringer's (Ringers, Lactated) 1,000 mls @ 100 mls/hr IV ASDIRECTED [facility] Last Admin: 05/15/16 22:22 Dose: 100 mls/hr Albumin Human (Flexbumin 25%) 50 mls @ 50 mls/hr IV Q24H [facility] Last Admin: 05/16/16 08:24 Dose: 50 mls/hr Albumin Human (Flexbumin 25%) 50 mls @ 50 mls/hr IV Q24H [facility] Last Admin: 05/16/16 09:11 Dose: 50 mls/hr Albumin Human (Flexbumin 25%) 50 mls @ 50 mls/hr IV Q24H [facility] Last Admin: 05/15/16 11:18 Dose: 50 mls/hr Albumin Human (Flexbumin 25%) 50 mls @ 50 mls/hr IV Q24H [facility] Last Admin: 05/15/16 12:14 Dose: 50 mls/hr Multivitamins/Minerals 10 ml/Chromium/Copper/Manganese/Seleni/Zn 1 ml/ Amino Ac/ Electrol/Dextrose/Calcium 1,011 mls @ 82 mls/hr IV .BY DURATION [facility] Amino Ac/Electrol/Dextrose/Calcium (Clinimix E 5/15) 1,000 mls @ 82 mls/hr IV .BY DURATION [facility] Potassium Phosphate 15 mmole/ (Sodium Chloride) 155 mls @ 55 mls/hr IV Q3H [facility] Stop: 05/16/16 16:50 Naloxone HCl (Narcan) 0.1 mg IV ASDIRECTED PRN PRN Reason: decreased respiratory rate Ondansetron HCl (Zofran) 4 mg IVPUSH Q4H PRN PRN Reason: Nausea/Vomiting Last Admin: 05/16/16 09:55 Dose: 4 mg Pantoprazole Sodium (Protonix Iv) 40 mg IV Q24H [facility] Last Admin: 05/15/16 17:28 Dose: 40 mg Discontinued Medications Acetaminophen (Tylenol) 650 mg PO Q6H [facility] Last Admin: 05/16/16 09:03 Dose: Not Given Albuterol/Ipratropium (Duoneb 3.0-0.5 Mg/3 Ml) 3 ml NEB ONETIME STA Stop: 05/13/16 19:09 Last Admin: 05/13/16 19:21 Dose: 3 ml Alvimopan (Entereg) 12 mg PO ONETIME ONE Stop: 05/09/16 08:31 Last Admin: 05/09/16 08:30 Dose: 12 mg Alvimopan (Entereg) 12 mg PO Q12H [facility] Stop: 05/16/16 09:01 Last Admin: 05/10/16 09:04 Dose: 12 mg Bisacodyl (Dulcolax) 10 mg PO BID [facility] Last Admin: 05/11/16 09:52 Dose: Not Given Bupivacaine HCl (Marcaine 0.5%) Confirm Administered Dose 50 ml .ROUTE .STK-MED ONE Stop: 05/11/16 06:49 Last Admin: 05/11/16 09:09 Dose: 32 ml Cefoxitin Sodium (Mefoxin) Confirm Administered Dose 2 gm .ROUTE .STK-MED ONE Stop: 05/09/16 06:55 Neomycin/Polymyxin 1 ml/ (Sodium Chloride 750 ml) 0 ml .XX ONETIME ONE Stop: 05/09/16 09:16 Last Admin: 05/09/16 13:25 Dose: Not Given Cyanocobalamin (Vitamin B12) 1,000 mcg IM ONETIME ONE Stop: 05/11/16 09:01 Last Admin: 05/11/16 09:53 Dose: 1,000 mcg Cyclobenzaprine HCl (Flexeril) 10 mg PO Q6H PRN PRN Reason: Muscle Spasm Last Admin: 05/13/16 06:22 Dose: 10 mg Dexamethasone (Dexamethasone) Confirm Administered Dose 4 mg .ROUTE .STK-MED ONE Stop: 05/09/16 08:37 Dexamethasone (Dexamethasone) Confirm Administered Dose 4 mg .ROUTE .STK-MED ONE Stop: 05/14/16 07:44 Diatrizoate Meglum/Diatrizoate Sod (Gastrografin 37%) 30 ml PO . DIRECTED [facility] Stop: 05/13/16 19:46 Last Admin: 05/13/16 19:33 Dose: 30 mg Diphenhydramine HCl (Benadryl) 25 mg IVPUSH Q6H PRN PRN Reason: ITCHING Diphenoxylate HCl/Atropine (Lomotil 0.025-2.5 Mg) 1 tab PO ONETIME ONE Stop: 05/12/16 10:36 Last Admin: 05/12/16 10:55 Dose: 1 tab Diphenoxylate HCl/Atropine (Lomotil 0.025-2.5 Mg) 1 tab PO Q6H PRN PRN Reason: Diarrhea Edrophonium Chloride (Enlon) Confirm Administered Dose 150 mg .ROUTE .STK-MED ONE Stop: 05/14/16 10:59 Fentanyl (Sublimaze) Confirm Administered Dose 500 mcg .ROUTE .STK-MED ONE Stop: 05/09/16 08:37 Fentanyl (Sublimaze) Confirm Administered Dose 100 mcg .ROUTE .STK-MED ONE Stop: 05/09/16 08:39 Fentanyl (Duragesic) 12 mcg TRDERM Q72H [facility] Last Admin: 05/13/16 13:15 Dose: Not Given Fentanyl (Sublimaze) Confirm Administered Dose 250 mcg .ROUTE .STK-MED ONE Stop: 05/14/16 07:44 Fentanyl (Duragesic) 25 mcg TRDERM Q72H [facility] Last Admin: 05/14/16 16:58 Dose: Not Given Furosemide (Lasix) 20 mg IVPUSH ONETIME ONE Stop: 05/13/16 18:01 Last Admin: 05/13/16 18:21 Dose: 20 mg Gabapentin (Neurontin) 300 mg PO ONETIME ONE Stop: 05/09/16 08:16 Last Admin: 05/09/16 07:53 Dose: 300 mg Gabapentin (Neurontin) 300 mg PO TID [facility] Last Admin: 05/12/16 21:54 Dose: 300 mg Glycopyrrolate () Confirm Administered Dose 1 mg .ROUTE .[facility]-MED ONE Stop: 05/09/16 08:37 Glycopyrrolate () Confirm Administered Dose 1 mg .ROUTE .[facility]-MED ONE Stop: 05/14/16 07:44 Heparin Sodium (Porcine) (Heparin Sodium) 5,000 units SUBCUT Q12H [facility] Stop: 05/10/16 20:00 Last Admin: 05/10/16 06:23 Dose: 5,000 units Heparin Sodium (Porcine) (Heparin Sodium) 5,000 units SUBCUT Q12H [facility] Heparin Sodium (Porcine) (Heparin Sodium) 5,000 units SUBCUT ONETIME ONE Stop: 05/10/16 17:01 Last Admin: 05/10/16 16:45 Dose: 5,000 units Heparin Sodium (Porcine) (Heparin Lock Flush 100 Units/Ml Syringe) 500 units FLUSH .[facility] ONE Stop: 05/14/16 10:20 Last Admin: 05/14/16 10:19 Dose: 500 units Heparin Sodium (Porcine) (Heparin Lock Flush 100 Units/Ml Syringe) Confirm Administered Dose 500 units .ROUTE .[facility] ONE Stop: 05/15/16 17:28 Last Admin: 05/15/16 19:22 Dose: Not Given Hydromorphone HCl (Dilaudid) 2 - 4 mg PO Q4H PRN PRN Reason: PAIN Last Admin: 05/14/16 02:12 Dose: 4 mg Hydroxyzine HCl (Vistaril) 75 - 100 mg IM Q4H PRN PRN Reason: PAIN NOT CONTROLLED BY MERCHANDISE CLERK Last Admin: 05/13/16 02:48 Dose: 100 mg Dextrose/Lactated Ringer's (Dextrose 5%-Lactated Ringers) 1,000 mls @ 100 mls/ hr IV ASDIRECTED [facility] Last Admin: 05/09/16 07:55 Dose: 100 mls/hr Cefoxitin Sodium 2 gm/ Sodium (Chloride) 50 mls @ 100 mls/hr IV ONETIME ONE Stop: 05/09/16 09:44 Last Admin: 05/09/16 09:08 Dose: 100 mls/hr Fentanyl 2,500 mcg/ Sodium (Chloride) 250 mls @ 0 mls/hr EPIDUR TITRATE [facility]; Titrate PRN Reason: Protocol Last Admin: 05/10/16 09:12 Dose: 10 ml/hr, 10 mls/hr Ketamine HCl 100 mg/ Sodium (Chloride) 100 mls @ 18 mls/hr IV ASDIRECTED [facility] Stop: 05/09/16 13:00 Lactated Ringer's (Ringers, Lactated) Confirm Administered Dose 1,000 mls @ as directed .ROUTE .STK-MED ONE Stop: 05/09/16 08:37 Sodium Chloride (Normal Saline) Confirm Administered Dose 10 mls @ as directed .ROUTE .STK-MED ONE Stop: 05/09/16 08:39 Lidocaine HCl (Xylocaine-Mpf 1%) Confirm Administered Dose 2 mls @ as directed .ROUTE .STK-MED ONE Stop: 05/09/16 09:24 Lactated Ringer's (Ringers, Lactated) Confirm Administered Dose 1,000 mls @ as directed .ROUTE .STK-MED ONE Stop: 05/09/16 11:10 Lactated Ringer's (Ringers, Lactated) 500 mls @ 500 mls/hr IV .[facility] ONE Stop: 05/09/16 14:59 Last Admin: 05/09/16 14:03 Dose: 500 mls/hr Dextrose/Lactated Ringer's (Dextrose 5%-Lactated Ringers) 1,000 mls @ 200 mls/ hr IV ASDIRECTED [facility] Stop: 05/10/16 17:59 Last Admin: 05/10/16 15:05 Dose: 200 mls/hr Multivitamins/Minerals 10 ml/Thiamine HCl 200 mg/ Chromium/Copper/Manganese/ [place]/Zn 1 ml/ Dextrose/Lactated Ringer's 1,013 mls @ 100 mls/hr IV DAILY@ 1600 [facility] Last Admin: 05/14/16 16:33 Dose: Not Given Cefoxitin Sodium 2 gm/ Sodium (Chloride) 50 mls @ 100 mls/hr IV Q6H [facility] Last Admin: 05/12/16 03:39 Dose: 100 mls/hr Acetaminophen 1,000 mg/ Premix 100 mls @ 400 mls/hr IV Q6H [facility] Stop: 05/10/16 04:14 Last Admin: 05/10/16 04:19 Dose: 400 mls/hr Ketamine HCl 100 mg/ Sodium (Chloride) 101 mls @ as directed IV .STK-MED ONE Stop: 05/09/16 09:46 Dextrose/Lactated Ringer's (Dextrose 5%-Lactated Ringers) 1,000 mls @ 100 mls/ hr IV ASDIRECTED [facility] Last Admin: 05/13/16 02:59 Dose: 100 mls/hr Magnesium Sulfate 2 gm/ Sodium (Chloride) 54 mls @ 27 mls/hr IV ONETIME ONE Stop: 05/13/16 11:59 Last Admin: 05/13/16 10:01 Dose: 27 mls/hr Magnesium Sulfate 2 gm/ Premix 50 mls @ 25 mls/hr IV Q6H [facility] Stop: 05/15/16 05:59 Last Admin: 05/16/16 09:03 Dose: Not Given Potassium Phosphate 20 mmole/ (Sodium Chloride) 256.6667 mls @ 85 mls/hr IV Q3H [facility] Stop: 05/13/16 18:59 Last Admin: 05/13/16 19:49 Dose: 85 mls/hr Dextrose/Lactated Ringer's (Dextrose 5%-Lactated Ringers) 1,000 mls @ 80 mls/ hr IV ASDIRECTED [facility] Stop: 05/14/16 14:29 Last Admin: 05/13/16 18:20 Dose: 25 mls/hr Meropenem 500 mg/ Sodium (Chloride) 50 mls @ 100 mls/hr IV ONETIME ONE Stop: 05/13/16 18:29 Last Admin: 05/13/16 18:28 Dose: 100 mls/hr Sodium Chloride (Normal Saline) 70 mls @ 3 mls/sec IV ASDIRECTED [facility] Last Admin: 05/13/16 19:22 Dose: 3 mls/sec Aztreonam 1 gm/ Sodium (Chloride) 50 mls @ 100 mls/hr IV Q8HR [facility] Last Admin: 05/14/16 05:39 Dose: 100 mls/hr Sodium Chloride (Normal Saline) Confirm Administered Dose 10 mls @ as directed .ROUTE .STK-MED ONE Stop: 05/14/16 08:52 Sodium Chloride (Normal Saline) Confirm Administered Dose 10 mls @ as directed .ROUTE .[facility]-MED ONE Stop: 05/14/16 09:28 Lactated Ringer's (Ringers, Lactated) Confirm Administered Dose 1,000 mls @ as directed .ROUTE .STK-MED ONE Stop: 05/14/16 09:34 Acetaminophen 1,000 mg/ Premix 100 mls @ 400 mls/hr IV Q6H [facility] Stop: 05/15/16 10:14 Last Admin: 05/15/16 10:12 Dose: 400 mls/hr Potassium Phosphate 15 mmole/Lidocaine HCl 2 ml/ Sodium Chloride 157 mls @ 53 mls/hr IV Q3H [facility] Stop: 05/15/16 15:58 Last Admin: 05/15/16 13:04 Dose: 53 mls/hr Ibuprofen (Motrin) 600 mg PO Q6H [facility] Last Admin: 05/13/16 05:24 Dose: Not Given Inulin (Fiber Choice) 4.5 gm PO BID [facility] Last Admin: 05/16/16 09:03 Dose: Not Given Iohexol (Omnipaque-300) 50 ml PO .ASDIRECTED [facility] Last Admin: 05/10/16 03:46 Dose: 50 ml Iopamidol (Isovue-300 (61%)) 100 ml IV . DIRECTED [facility] Last Admin: 05/13/16 19:22 Dose: 90 ml Ketamine HCl (Ketalar) 30 mg IV ASDIRECTED [facility] Stop: 05/09/16 11:00 Ketamine HCl (Ketalar) 30 mg IV .STK-MED ONE Stop: 05/09/16 09:46 Ketamine HCl (Ketalar) Confirm Administered Dose 500 mg .ROUTE .STK-MED ONE Stop: 05/14/16 08:51 Lactobacillus Rhamnosus (Culturelle) 2 cap PO BID [facility] Last Admin: 05/16/16 09:04 Dose: Not Given Lidocaine/Epinephrine (Xylocaine 1% With Epinephrine 1:100,000) Confirm Administered Dose 50 ml .ROUTE .STK-MED ONE Stop: 05/11/16 06:49 Last Admin: 05/11/16 09:09 Dose: 32 ml Meperidine HCl (Demerol) 50 mg IM ASDIRECTED PRN PRN Reason: PAIN Stop: 05/10/16 14:45 Meropenem (Merrem) Confirm Administered Dose 500 mg .ROUTE .STK-MED ONE Stop: 05/09/16 08:14 Last Admin: 05/09/16 10:24 Dose: 500 mg Meropenem (Merrem) Confirm Administered Dose 500 mg .ROUTE .STK-MED ONE Stop: 05/11/16 06:49 Last Admin: 05/11/16 09:10 Dose: 500 mg Meropenem (Merrem) Confirm Administered Dose 500 mg .ROUTE .STK-MED ONE Stop: 05/14/16 07:31 Last Admin: 05/14/16 10:19 Dose: 500 mg Meropenem (Merrem) Confirm Administered Dose 500 mg .ROUTE .STK-MED ONE Stop: 05/14/16 10:03 Last Admin: 05/14/16 10:19 Dose: 500 mg Metoclopramide HCl (Reglan) 10 mg IV Q6H [facility] Last Admin: 05/14/16 08:03 Dose: 10 mg Midazolam HCl (Versed 1 Mg/Ml) Confirm Administered Dose 2 mg .ROUTE .STK-MED ONE Stop: 05/14/16 07:44 Naloxone HCl (Narcan) 0.4 mg IV ASDIRECTED PRN PRN Reason: ITCHING Neostigmine Methylsulfate (Neostigmine) Confirm Administered Dose 5 mg .ROUTE .ST-MED ONE Stop: 05/09/16 08:37 Neostigmine Methylsulfate (Neostigmine) Confirm Administered Dose 5 mg .ROUTE .STK-MED ONE Stop: 05/14/16 07:44 Scopolamine Patch (Check) 1 each TOP DAILY [facility] Last Admin: 05/16/16 09:03 Dose: Not Given Check Fentanyl Patch (Daily) 1 each TOP DAILY [facility] Last Admin: 05/15/16 09:06 Dose: Not Given Ondansetron HCl (Zofran) Confirm Administered Dose 4 mg .ROUTE .ST-MED ONE Stop: 05/09/16 08:37 Ondansetron HCl (Zofran) Confirm Administered Dose 4 mg .ROUTE .STK-MED ONE Stop: 05/14/16 07:44 Pantoprazole Sodium (Protonix Iv) 40 mg IVPUSH Q24H [facility] Last Admin: 05/11/16 16:53 Dose: 40 mg Pantoprazole Sodium (Protonix) 40 mg PO Q24H [facility] Last Admin: 05/13/16 16:59 Dose: 40 mg Phenylephrine HCl (Yan-Synephrine) Confirm Administered Dose 10 mg .ROUTE .STK- MED ONE Stop: 05/14/16 09:27 Propofol (Diprivan 20 Ml) Confirm Administered Dose 200 mg .ROUTE .STK-MED ONE Stop: 05/09/16 08:37 Propofol (Diprivan 20 Ml) Confirm Administered Dose 200 mg .ROUTE .STK-MED ONE Stop: 05/11/16 07:00 Propofol (Diprivan 20 Ml) Confirm Administered Dose 200 mg .ROUTE .STK-MED ONE Stop: 05/14/16 07:44 Rocuronium [place] (Zemuron) Confirm Administered Dose 100 mg .ROUTE .STK-MED ONE Stop: 05/09/16 08:37 Rocuronium [place] (Zemuron) Confirm Administered Dose 50 mg .ROUTE .STK-MED ONE Stop: 05/14/16 07:44 Scopolamine (Transderm-Scop) 1.5 mg TOP Q72H [facility] Stop: 05/12/16 06:00 Last Admin: 05/09/16 07:53 Dose: 1.5 mg Scopolamine (Transderm-Scop) Confirm Administered Dose 1.5 mg .ROUTE .STK-MED ONE Stop: 05/09/16 08:37 Scopolamine (Transderm-Scop) 1.5 mg TOP ASDIRECTED [facility] Stop: 05/12/16 16:00 Scopolamine (Transderm-Scop) 1.5 mg TOP Q72H [facility] Last Admin: 05/12/16 09:17 Dose: 1.5 mg Sodium Chloride (Saline Flush) 10 ml FLUSH ONETIME ONE Stop: 05/13/16 18:10 Last Admin: 05/13/16 19:22 Dose: 10 ml Succinylcholine Chloride (Succinylcholine In Ns Pf) Confirm Administered Dose 200 mg .ROUTE .STK-MED ONE Stop: 05/09/16 08:37 Succinylcholine Chloride (Succinylcholine In Ns Pf) Confirm Administered Dose 200 mg .ROUTE .STK-MED ONE Stop: 05/14/16 07:44 - Exam Lungs: Clear to auscultation, Normal respiratory effort Cardiovascular: regular rate, regular rhythm, no murmurs Abdomen: soft, tenderness, abnormal bowel sounds. No: distension Extremities: no edema Skin: warm, dry, intact Consult PN Assessment/Plan Procedures: Procedures ASSAY OF LACTIC ACID (03/04/16) ASSAY OF MAGNESIUM (04/07/16) ASSAY OF PHOSPHORUS (04/07/16) ASSAY THYROID STIM HORMONE (10/08/15) BLOOD TYPING SEROLOGIC ABO (04/14/15) BLOOD TYPING SEROLOGIC RH(D) (04/14/15) C-REACTIVE PROTEIN (04/07/16) COMPLETE CBC AUTOMATED (04/07/16) COMPLETE CBC W/AUTO DIFF WBC (04/07/16) COMPREHEN METABOLIC PANEL (04/07/16) CT ABD & PELV W/CONTRAST (03/04/16) CULTURE SCREEN ONLY (11/10/15) ELECTROCARDIOGRAM TRACING (04/14/15) EMERGENCY DEPT VISIT (04/07/16) HYDRATE IV INFUSION ADD-ON (04/07/16) MEASURE BLOOD OXYGEN LEVEL (01/01/16) METABOLIC PANEL TOTAL CA (03/04/16) PT EVALUATION (11/10/15) RBC ANTIBODY SCREEN (04/14/15) ROUTINE VENIPUNCTURE (04/07/16) SPECIAL STAINS GROUP 2 (04/14/15) THER/PROPH/DIAG INJ IV PUSH (04/07/16) THER/PROPH/DIAG IV INF ADDON (03/04/16) THER/PROPH/DIAG IV INF INIT (03/04/16) THERAPEUTIC ACTIVITIES (11/10/15) TISSUE EXAM BY PATHOLOGIST (01/01/16) TISSUE EXAM BY PATHOLOGIST (01/01/16) TISSUE EXAM BY PATHOLOGIST (04/14/15) TISSUE EXAM BY PATHOLOGIST (04/14/15) TX/PRO/DX INJ NEW DRUG ADDON (04/07/16) URINALYSIS AUTO W/SCOPE (04/07/16) X-RAY EXAM OF ABDOMEN (04/07/16) X-RAY EXAM SERIES ABDOMEN (04/07/16) X-RAY UPPER GI DELAY W/O KUB (03/04/16) X-RAY UPPER GI&SMALL INTEST (04/07/16) Problem List Initiated/Reviewed/Updated: Yes Plan: Assessment and Plan - Abdominal abscess with peritonitis secondary to JJ leak - status post exploratory laparotomy 3/4. Improved over the past 24 hours but continues to have significant incisional pain -Agree with broad-spectrum antibiotics -Followup cultures -additional postop cares per surgical team Elevated bilirubin with mild elevation of AST and ALT - history of similar elevations following surgery though not bilirubin to this extent. Levels have remained normal so far. -Labs in the morning Delirium - probably multifactorial with medications such as pain medications, cyclobenzaprine and scopolamine patch. Somnolent but she did just have surgery. -Minimize sedating medications as able S/P colectomy - post op day 6 - recovery has been delayed by intra-abdominal abscess as discussed above. -Postop cares per surgical team
[2016-05-16] MEDS: Lactated Ringers 1,000 ML IV SCH ×2 (10:33→23:00)
--- NOTE | 2016-05-16 11:41 | PN ---
DATE OF SERVICE: 05/15/2016 Since surgery, the patient has been afebrile. She was initially fairly tachycardic at around 125. Heart rate this morning is 100 with sinus rhythm. Respiratory status appears to be satisfactory with O2 sats in the 94% to 98% range. Urine output has been satisfactory. Creatinine is actually somewhat low at 0.7. NG output for the 24 hours was around 200 mL and is bilious, as one would expect, and I think we will hold off on taking out the NG tube at this point, although it is somewhat bothersome for the patient. Gram stain intraoperatively showed a Gram-negative rods, which should be likely covered well by the meropenem and Azactam, so continue the present antibiotic regimen. The labs show white count of 16,000 and hemoglobin 9.2. Potassium and phosphate are both near the lower ends of normal, so will give some supplementation of those today. Blood sugar is 123 with the present TPN. It is notable that her albumin is quite low at 1.0, and we will begin daily albumin supplementation for that as well. Otherwise, will continue the TPN. We will maximize activity and work with pulmonary toilet. Her wound will be kept intact until Monday, at which time we will tentatively plan a delayed primary closure. Perhaps she would beneift from ICU care for one additional day at least. Kit Duke MD /[phone]
--- NOTE | 2016-05-16 12:12 | CR ---
Portable chest Comparison: November 2011. Shallow lung volumes are demonstrated. There has been development of a left basilar infiltrate as we ll as small effusion. The right lung is unremarkable. The heart and vascular structures appear withi n normal limits. Impression: 1. Small left pleural effusion as well as left lower lobe infiltrate. Recommend correlation for unde rlying pneumonia.
--- NOTE | 2016-05-16 12:14 | CR ---
Portable chest Comparison: Previous day. Findings: There has been interval placement of a nasogastric tube with the tip in the stomach. There is a left central venous catheter placed. The tip appears to be within the right atrium. There are shallow lung volumes. There has been progression of infiltrate in the left mid and lower lung field. There is a small left effusion. Impression: 1. Nasogastric tube and left subclavian line placement. 2. Progression of left mid and lower lung infiltrate. Left pleural effusion unchanged.
[2016-05-16] MEDS: Potassium Phosphates 15 MMOLE in Sodium Chloride 0.9% 150 ML IV SCH ×2 (13:40→17:27)
[2016-05-16] MEDS: hydrOXYzine HCl 50 MG/ML SDV IM PRN ×2 (14:03→22:50)
[2016-05-16] MEDS: Pantoprazole 40 MG Vial IV SCH (16:20)
[2016-05-17] MEDS: Meropenem 500 MG in Sodium Chloride 0.9% 50 ML IV SCH ×4 (04:19→21:48)
[2016-05-17] MEDS: hydrOXYzine HCl 50 MG/ML SDV IM PRN (04:20)
[2016-05-17] MEDS: Aztreonam/Dextrose-Water 1 GM in Premix Bag 1 BAG IV SCH ×3 (06:18→22:21)
[2016-05-17] MEDS ORDERED: Meropenem 500 MG SDV ONE (06:45)
[2016-05-17] MEDS ORDERED: Lidocaine 1% with EPINEPHrine 1:100,000 50 ML MDV ONE (06:46)
[2016-05-17] MEDS ORDERED: Bupivacaine 0.5% 50 ML MDV ONE (06:46)
[2016-05-17] MEDS ORDERED: fentaNYL 100 MCG/2 ML SDV ONE (07:21)
[2016-05-17] MEDS ORDERED: Midazolam 1 MG/ML 2 ML SDV ONE (07:21)
[2016-05-17] MEDS ORDERED: Propofol 200 MG/20 ML SDV ONE (07:21)
--- NOTE | 2016-05-17 07:58 | OR ---
DATE OF PROCEDURE: 05/09/2016 PREOPERATIVE DIAGNOSES: 1. Diffuse megacolon associated with slow transit constipation refractory to medical management. 2. Contracted chronically painful umbilicus. POSTOPERATIVE DIAGNOSES: 1. Diffuse megacolon associated with slow transit constipation refractory to medical management. 2. Contracted chronically painful umbilicus. 3. Florid inflammatory adhesions to the distal [place] limb and jejunojejunostomy. 4. Focal area of pelvic endometriosis. OPERATIVE PROCEDURE: Exploratory laparotomy with: 1. Total abdominal colectomy with ileorectal anastomosis (60832). 2. Revision of small bowel component of [place]-en-Y gastric bypass (37698). 3. Umbilectomy (38854). 4. Ablation of focal area of pelvic endometriosis, left pelvic sidewall (05267). 5. Placement of Interceed mesh to displace small bowel from pelvic and abdominal wall to limit recurrent adhesion formation (14310). ANESTHESIA: General. INDICATION FOR PROCEDURE: This is a 55-year-old with diffuse megacolon and slow transit to constipation, which has, at this point, been refractory to medical management. After discussion of the situation with the patient and , plan will be to proceed with a total abdominal colectomy with ileorectal anastomosis. She also has a painful contracted umbilicus related to previous incision in that area, which she wishes to have excised for alleviation of the discomfort in that area. Potential risks of the procedure including bleeding, infection, leaks from various GI tract closures, possible problems with further bowel obstruction over time, as well as possibility of cardiopulmonary, septic, or hemorrhagic complications leading to were discussed, and the patient wishes to proceed. DETAILS OF PROCEDURE: The patient was taken to the room. After general endotracheal anesthesia was induced, a Mendoza catheter was inserted and the abdomen prepped and draped. Oral gastric tube was temporarily placed to evacuate anything that might be in the proximal [place] limb and gastric pouch area. Midline incision from roughly a handsbreadth of xiphoid to a few centimeters above the pubic area was then made and carried down through the skin and subcutaneous tissue, fascia, and into the peritoneal cavity. There was a florid inflammatory response evident in the area of the jejunojejunostomy and the [place] limb somewhat proximal to that. As this bowel was dissected free, it was felt to be unsatisfactory to leave in place, and initially the jejunojejunostomy was resected, along with a portion of the [place] limb with the three components of the jejunojejunostomy to be subsequently reconstructed. As expected, the patient had a diffuse megacolon with a striking distention of the entire length of the abdominal colon. The distal small bowel was initially divided with a LAUREL stapler, and the peritoneal flexion of the cecum and ascending colon and up along the hepatic flexure was divided with a combination of Harmonic scalpel and electrocautery. This area of the colon was then mobilized medially. The omentum was then dissected away from some attachments to the transverse colon, which was also then divided more or less flush with the colon so as to minimize any devascularization of the more proximal mesentery. At this point, the distal sigmoid colon was retracted upward, the peritoneum adjacent to the small bowel and onto the rectum was divided, and the upper rectum was then divided with a LAUREL curved purple load. The peritoneal reflection of the sigmoid colon and descending colon and then the splenic flexure were all divided with a combination of Harmonic scalpel and cautery dissection. These were then mobilized free from the retroperitoneal attachments and the underlying mesentery and then divided with LAUREL murtaza as well. The total abdominal colectomy specimen was then delivered from the field. On the right side, the plane of the ureter was clearly not entered, and the duodenum was confirmed to be uninjured, and certainly on the left side, the plane of the ureter was clearly not entered during the course of this dissection. The patient was noted to have some focal pelvic endometriosis located along the pelvic sidewall. This was ablated at this point with electrocautery. Next, the ileorectal anastomosis was accomplished. The divided rectum was then pulled upward, and the distal divided ileum was laid adjacent to it and enterotomies then made. Two firings of the LAUREL reyes load were then used to create the internal opening. The common opening was then closed with purple and blue loads, the angles anastomosed, and the mesenteric defect was reinforced with 3-0 Vicryl stitch. The curvature to which the small bowel entered the anastomosis and fell back into the pelvis appeared to be satisfactory. The mesenteric defect of the divided small bowel along the retroperitoneum was then closed with a 3-0 Vicryl running stitch. At this point, the small bowel reconstruction was then accomplished with anastomosis between the distal [place] limb and the proximal common limb with a LAUREL stapler sequence in the usual fashion and the Augusta-en-Y anatomy then reconstructed with anastomosis of the bowel a few centimeters distal to that to the divided end of the biliopancreatic limb, again with a standard staple sequence. The anastomoses were then reinforced with fibrin sealant, along with 3-0 Vicryl stitch, as was the underlying mesenteric defect. At that point, the bowel wall appeared to lie in a nice configuration. The omentum was able to be covered over the upper aspect of the incision. There was still a broad area of dissection in the pelvic area, as well as lower abdominal wall, which was devoid of any coverage. Given this, Interceed mesh was placed into that area to displace the small bowel away from pelvic and abdominal ambrosio in the lower abdomen. The midline fascia was then approximated. The umbilicus at this point was excised, and the fascia was closed from that point forward with a #2 Vicryl stitch. The skin and subcutaneous tissue were felt to be at high risk for wound infection, if they were closed at this time. Given this, the skin and subcutaneous tissue were packed open with iodoform gauze and the patient taken to the recovery room in satisfactory condition. There were no evident complications. Kit Duke MD /[id number]
[2016-05-17] MEDS: Albumin 25% 50 ML IV SCH ×4 (09:24→12:39)
[2016-05-17] MEDS: Lactated Ringers 1,000 ML IV SCH ×2 (09:29→19:53)
--- NOTE | 2016-05-17 10:14 | CR ---
Portable chest Comparison: 2 days prior. Findings: There is a nasogastric tube within the stomach. A left central venous catheters located in the junction of the right atrium and SVC. There has been progression of pulmonary vascular engorgement. Increased interstitial infiltrates are demonstrated bilaterally. There are developing small pleural effusions bilaterally. Impression: 1. States most consistent with CHF with interstitial pulmonary edema.
--- NOTE | 2016-05-17 10:47 | PN ---
DATE OF SERVICE: 05/16/2016 The patient has been afebrile. Heart rate is running right around 100, and pulmonary status appears to be fairly good. NG output has picked up around 600 mL, and we will leave the NG tube in place, as this will be decompressing the area around the proximal anastomosis, and if that were to get distended, I think we would be at risk for getting a leak there, as well as the patient possibly having nausea, vomiting, and aspiration issues. She has been up and moving. LACIE drains all look satisfactory at this point. One has a very thin reyes appearance, but that is down on the right side in the pelvis and is unlikely to be of any concern. She has been up and walking and does have some confusion intermittently, particularly at night, but has otherwise been cooperative. The labs show elevated chloride. We will adjust the TPN accordingly. Otherwise, her liver function tests have improved quite a bit with bilirubin coming down from 3.1 on Monday to 0.4 this morning. Liver function tests otherwise looks satisfactory at this point. Hemoglobin is down somewhat at 8.2, and that would likely be indicative of fluid shifting, as there is no sign of any bleeding. White count is down also at 13.1. The plan at this point will be to make adjustments in TPN as noted above, continue to work with pulmonary toilet, and increasing activity. We will leave the NG tube in place. Recheck some labs in the morning, as well as type and cross. If the hemoglobin falls below 8, we will probably give her a unit of packed RBCs and then proceed with a delayed primary closure of the abdominal incision tomorrow. Kit Duke MD /[id number]
[2016-05-17] MEDS: 1: AA 5%/Calcium/D15W/Lytes 1,000 ML with MVI, Adult with Vitamin K 10 ML, Chromium/Copp IV SCH ×6 (11:33→23:51)
[2016-05-17] MEDS: Levofloxacin/Dextrose 5%-Water 750 MG in Premix Bag 1 BAG IV SCH (11:47)
[2016-05-17] MEDS ORDERED: Vancomycin 1 GM SDV IV SCH (12:00)
[2016-05-17] MEDS ORDERED: Vancomycin 1.3 GM in Sodium Chloride 0.9% 250 ML IV ONE (13:00)
--- NOTE | 2016-05-17 15:21 | PCM.CONSN ---
- General Info Date of Service: 05/17/16 - Review of Systems General: Reports: fever, weakness Pulmonary: Denies: shortness of breath, cough Cardiovascular: Reports: no symptoms Gastrointestinal: Reports: Abdominal pain. Denies: Nausea, Vomiting Systems Review Comment:: Ms. Hanks is status post delayed primary closure done earlier today. Unfortunately she's had a recurrent temperature elevation this morning, white blood cell count has improved but remains mildly elevated. Chest x-ray was repeated and does show some evidence of pulmonary infiltrate. She denies significant shortness of breath or cough. - Patient Data Vitals - most recent: Last Vital Signs Temp 100.8 F H 05/17/16 13:00 Pulse 103 H 05/17/16 13:00 Resp 23 H 05/17/16 13:00 BP 135/73 05/17/16 13:00 Pulse Ox 93 L 05/17/16 13:00 Weight - most recent: 133 lb 15.987 oz I&O - last 24 hours: Intake & Output 05/17/16 05/17/16 05/17/16 06:59 14:59 22:59 Intake Total 2595 Output Total 1735 865 Balance 860 -865 Lab Results last 24 hrs: Laboratory Results - last 24 hr 05/17/16 05/17/16 05/17/16 Range/Units 04:00 04:00 04:00 WBC 11.4 H (4.5-11.0) K/uL RBC 3.00 L (3.30-5.50) M/uL Hgb 8.4 L (12.0-15.0) g/dL Hct 25.2 L (36.0-48.0) % MCV 84 (80-98) fL MCH 28 (27-31) pg MCHC 33 (32-36) % Plt Count 107 L (150-400) K/uL Sodium 142 (140-148) mmol/L Potassium 4.2 (3.6-5.2) mmol/L Chloride 110 H (100-108) mmol/L Carbon Dioxide 27 (21-32) mmol/L Anion Gap 9.2 (5.0-14.0) mmol/L BUN 26 H (7-18) mg/dL Creatinine 0.5 L (0.6-1.0) mg/dL Est Cr Clr Drug Dosing 119.11 mL/min Estimated GFR (MDRD) > 60 (>60) Glucose 102 (74-106) mg/dL Calcium 7.8 L (8.5-10.1) mg/dL Phosphorus 3.7 (2.5-4.9) mg/dL Magnesium 1.8 (1.8-2.4) mg/dL Total Bilirubin 0.6 (0.2-1.0) mg/dL AST 17 (15-37) U/L ALT 17 (12-78) U/L Alkaline Phosphatase 51 (46-116) U/L Total Protein 4.6 L (6.4-8.2) g/dL Albumin 1.7 L (3.4-5.0) g/dL Globulin 2.9 (2.3-3.5) g/dL Albumin/Globulin Ratio 0.6 L (1.2-2.2) Blood Type A POSITIVE Gel Antibody Screen Negative Crossmatch See Detail Dereje Results last 24 hrs: Microbiology 05/14/16 09:43 Anaerobic Culture - Final Gallbladder NO GROWTH AFTER 3 DAYS 05/11/16 23:55 Aerobic Blood Culture - Final Blood - Venous NO GROWTH AFTER 5 DAYS Anaerobic Blood Culture - Final NO GROWTH AFTER 5 DAYS 05/11/16 23:55 Aerobic Blood Culture - Final Blood - Venous - Lab Draw NO GROWTH AFTER 5 DAYS Anaerobic Blood Culture - Final NO GROWTH AFTER 5 DAYS Med Orders - Current: Current Medications Bacitracin (Bacitracin Oint 1 Gm) 1 dose TOP BID PRN PRN Reason: burn Last Admin: 05/12/16 20:31 Dose: 2 dose Dimethicone/Zinc Oxide (Rash Relief-Zinc Oxide [place]) 1 gm TOP ASDIRECTED PRN PRN Reason: Other Last Admin: 05/12/16 20:30 Dose: 1 bot Diphenhydramine HCl (Benadryl) 25 - 50 mg IVPUSH Q4H PRN PRN Reason: ITCHING Hydromorphone HCl (Dilaudid [employer]itor Services Assistant 15 Mg In Ns 30 Ml) 0 mg IV ASDIRECTED PRN; Protocol PRN Reason: [employer] PAIN CONTROL Last Admin: 05/16/16 06:22 Dose: 15 mg Hydroxyzine HCl (Vistaril) 100 mg IM Q4H PRN PRN Reason: PAIN NOT CONTROLLED BY [employer] REPRESENT[employer]IVE Last Admin: 05/17/16 04:20 Dose: 100 mg Meropenem 500 mg/ Sodium (Chloride) 50 mls @ 100 mls/hr IV Q6H [facility] Last Admin: 05/17/16 10:31 Dose: 100 mls/hr Aztreonam/Dextrose 1 gm/ (Premix) 50 mls @ 100 mls/hr IV Q8H [facility] Last Admin: 05/17/16 14:25 Dose: 100 mls/hr Lactated Ringer's (Ringers, Lactated) 1,000 mls @ 100 mls/hr IV ASDIRECTED [facility] Last Admin: 05/17/16 09:29 Dose: 100 mls/hr Albumin Human (Flexbumin 25%) 50 mls @ 50 mls/hr IV Q24H [facility] Last Admin: 05/17/16 09:24 Dose: 50 mls/hr Albumin Human (Flexbumin 25%) 50 mls @ 50 mls/hr IV Q24H [facility] Last Admin: 05/17/16 10:30 Dose: 50 mls/hr Albumin Human (Flexbumin 25%) 50 mls @ 50 mls/hr IV Q24H [facility] Last Admin: 05/17/16 11:34 Dose: 50 mls/hr Albumin Human (Flexbumin 25%) 50 mls @ 50 mls/hr IV Q24H [facility] Last Admin: 05/17/16 12:39 Dose: 50 mls/hr Multivitamins/Minerals 10 ml/Chromium/Copper/Manganese/Seleni/Zn 1 ml/ Amino Ac/ Electrol/Dextrose/Calcium 1,011 mls @ 82 mls/hr IV .BY DURATION [facility] Last Admin: 05/17/16 11:33 Dose: 82 mls/hr Amino Ac/Electrol/Dextrose/Calcium (Clinimix E 07/25) 1,000 mls @ 82 mls/hr IV .BY DURATION [facility] Last Admin: 05/16/16 23:30 Dose: 82 mls/hr Levofloxacin/Dextrose 750 mg/ (Premix) 150 mls @ 100 mls/hr IV Q24H [facility] Last Admin: 05/17/16 11:47 Dose: 100 mls/hr Vancomycin HCl 1 gm/ Sodium (Chloride) 250 mls @ 167 mls/hr IV Q12H [facility] Naloxone HCl (Narcan) 0.1 mg IV ASDIRECTED PRN PRN Reason: decreased respiratory rate Ondansetron HCl (Zofran) 4 mg IVPUSH Q4H PRN PRN Reason: Nausea/Vomiting Last Admin: 05/16/16 09:55 Dose: 4 mg Pantoprazole Sodium (Protonix Iv) 40 mg IV Q24H [facility] Last Admin: 05/16/16 16:20 Dose: 40 mg Discontinued Medications Acetaminophen (Tylenol) 650 mg PO Q6H [facility] Last Admin: 05/16/16 09:03 Dose: Not Given Albuterol/Ipratropium (Duoneb 3.0-0.5 Mg/3 Ml) 3 ml NEB ONETIME STA Stop: 05/13/16 19:09 Last Admin: 05/13/16 19:21 Dose: 3 ml Alvimopan (Entereg) 12 mg PO ONETIME ONE Stop: 05/09/16 08:31 Last Admin: 05/09/16 08:30 Dose: 12 mg Alvimopan (Entereg) 12 mg PO Q12H [facility] Stop: 05/16/16 09:01 Last Admin: 05/10/16 09:04 Dose: 12 mg Bisacodyl (Dulcolax) 10 mg PO BID [facility] Last Admin: 05/11/16 09:52 Dose: Not Given Bupivacaine HCl (Marcaine 0.5%) Confirm Administered Dose 50 ml .ROUTE .STK-MED ONE Stop: 05/11/16 06:49 Last Admin: 05/11/16 09:09 Dose: 32 ml Bupivacaine HCl (Marcaine 0.5%) Confirm Administered Dose 50 ml .ROUTE .STK-MED ONE Stop: 05/17/16 06:47 Last Admin: 05/17/16 08:07 Dose: 20 ml Cefoxitin Sodium (Mefoxin) Confirm Administered Dose 2 gm .ROUTE .STK-MED ONE Stop: 05/09/16 06:55 Neomycin/Polymyxin 1 ml/ (Sodium Chloride 750 ml) 0 ml .XX ONETIME ONE Stop: 05/09/16 09:16 Last Admin: 05/09/16 13:25 Dose: Not Given Cyanocobalamin (Vitamin B12) 1,000 mcg IM ONETIME ONE Stop: 05/11/16 09:01 Last Admin: 05/11/16 09:53 Dose: 1,000 mcg Cyclobenzaprine HCl (Flexeril) 10 mg PO Q6H PRN PRN Reason: Muscle Spasm Last Admin: 05/13/16 06:22 Dose: 10 mg Dexamethasone (Dexamethasone) Confirm Administered Dose 4 mg .ROUTE .STK-MED ONE Stop: 05/09/16 08:37 Dexamethasone (Dexamethasone) Confirm Administered Dose 4 mg .ROUTE .STK-MED ONE Stop: 05/14/16 07:44 Diatrizoate Meglum/Diatrizoate Sod (Gastrografin 37%) 30 ml PO . DIRECTED [facility] Stop: 05/13/16 19:46 Last Admin: 05/13/16 19:33 Dose: 30 mg Diphenhydramine HCl (Benadryl) 25 mg IVPUSH Q6H PRN PRN Reason: ITCHING Diphenoxylate HCl/Atropine (Lomotil 0.025-2.5 Mg) 1 tab PO ONETIME ONE Stop: 05/12/16 10:36 Last Admin: 05/12/16 10:55 Dose: 1 tab Diphenoxylate HCl/Atropine (Lomotil 0.025-2.5 Mg) 1 tab PO Q6H PRN PRN Reason: Diarrhea Edrophonium Chloride (Enlon) Confirm Administered Dose 150 mg .ROUTE .STK-MED ONE Stop: 05/14/16 10:59 Fentanyl (Sublimaze) Confirm Administered Dose 500 mcg .ROUTE .STK-MED ONE Stop: 05/09/16 08:37 Fentanyl (Sublimaze) Confirm Administered Dose 100 mcg .ROUTE .STK-MED ONE Stop: 05/09/16 08:39 Fentanyl (Duragesic) 12 mcg TRDERM Q72H [facility] Last Admin: 05/13/16 13:15 Dose: Not Given Fentanyl (Sublimaze) Confirm Administered Dose 250 mcg .ROUTE .STK-MED ONE Stop: 05/14/16 07:44 Fentanyl (Duragesic) 25 mcg TRDERM Q72H [facility] Last Admin: 05/14/16 16:58 Dose: Not Given Fentanyl (Sublimaze) Confirm Administered Dose 100 mcg .ROUTE .STK-MED ONE Stop: 05/17/16 07:22 Furosemide (Lasix) 20 mg IVPUSH ONETIME ONE Stop: 05/13/16 18:01 Last Admin: 05/13/16 18:21 Dose: 20 mg Gabapentin (Neurontin) 300 mg PO ONETIME ONE Stop: 05/09/16 08:16 Last Admin: 05/09/16 07:53 Dose: 300 mg Gabapentin (Neurontin) 300 mg PO TID [facility] Last Admin: 05/12/16 21:54 Dose: 300 mg Glycopyrrolate () Confirm Administered Dose 1 mg .ROUTE .STK-MED ONE Stop: 05/09/16 08:37 Glycopyrrolate () Confirm Administered Dose 1 mg .ROUTE .STK-MED ONE Stop: 05/14/16 07:44 Heparin Sodium (Porcine) (Heparin Sodium) 5,000 units SUBCUT Q12H [facility] Stop: 05/10/16 20:00 Last Admin: 05/10/16 06:23 Dose: 5,000 units Heparin Sodium (Porcine) (Heparin Sodium) 5,000 units SUBCUT Q12H [facility] Heparin Sodium (Porcine) (Heparin Sodium) 5,000 units SUBCUT ONETIME ONE Stop: 05/10/16 17:01 Last Admin: 05/10/16 16:45 Dose: 5,000 units Heparin Sodium (Porcine) (Heparin Lock Flush 100 Units/Ml Syringe) 500 units FLUSH .STK-[facility] ONE Stop: 05/14/16 10:20 Last Admin: 05/14/16 10:19 Dose: 500 units Heparin Sodium (Porcine) (Heparin Lock Flush 100 Units/Ml Syringe) Confirm Administered Dose 500 units .ROUTE .STK-MED ONE Stop: 05/15/16 17:28 Last Admin: 05/15/16 19:22 Dose: Not Given Hydromorphone HCl (Dilaudid) 2 - 4 mg PO Q4H PRN PRN Reason: PAIN Last Admin: 05/14/16 02:12 Dose: 4 mg Hydroxyzine HCl (Vistaril) 75 - 100 mg IM Q4H PRN PRN Reason: PAIN NOT CONTROLLED BY [employer] Last Admin: 05/13/16 02:48 Dose: 100 mg Dextrose/Lactated Ringer's (Dextrose 5%-Lactated Ringers) 1,000 mls @ 100 mls/ hr IV ASDIRECTED [facility] Last Admin: 05/09/16 07:55 Dose: 100 mls/hr Cefoxitin Sodium 2 gm/ Sodium (Chloride) 50 mls @ 100 mls/hr IV ONETIME ONE Stop: 05/09/16 09:44 Last Admin: 05/09/16 09:08 Dose: 100 mls/hr Fentanyl 2,500 mcg/ Sodium (Chloride) 250 mls @ 0 mls/hr EPIDUR TITRATE [facility]; Titrate PRN Reason: Protocol Last Admin: 05/10/16 09:12 Dose: 10 ml/hr, 10 mls/hr Ketamine HCl 100 mg/ Sodium (Chloride) 100 mls @ 18 mls/hr IV ASDIRECTED [facility] Stop: 05/09/16 13:00 Lactated Ringer's (Ringers, Lactated) Confirm Administered Dose 1,000 mls @ as directed .ROUTE .STK-MED ONE Stop: 05/09/16 08:37 Sodium Chloride (Normal Saline) Confirm Administered Dose 10 mls @ as directed .ROUTE .STK-MED ONE Stop: 05/09/16 08:39 Lidocaine HCl (Xylocaine-Mpf 1%) Confirm Administered Dose 2 mls @ as directed .ROUTE .STK-MED ONE Stop: 05/09/16 09:24 Lactated Ringer's (Ringers, Lactated) Confirm Administered Dose 1,000 mls @ as directed .ROUTE .STK-MED ONE Stop: 05/09/16 11:10 Lactated Ringer's (Ringers, Lactated) 500 mls @ 500 mls/hr IV .[facility]OLUS ONE Stop: 05/09/16 14:59 Last Admin: 05/09/16 14:03 Dose: 500 mls/hr Dextrose/Lactated Ringer's (Dextrose 5%-Lactated Ringers) 1,000 mls @ 200 mls/ hr IV ASDIRECTED [facility] Stop: 05/10/16 17:59 Last Admin: 05/10/16 15:05 Dose: 200 mls/hr Multivitamins/Minerals 10 ml/Thiamine HCl 200 mg/ Chromium/Copper/Manganese/ Seleni/Zn 1 ml/ Dextrose/Lactated Ringer's 1,013 mls @ 100 mls/hr IV DAILY@ 1600 [facility] Last Admin: 05/14/16 16:33 Dose: Not Given Cefoxitin Sodium 2 gm/ Sodium (Chloride) 50 mls @ 100 mls/hr IV Q6H [facility] Last Admin: 05/12/16 03:39 Dose: 100 mls/hr Acetaminophen 1,000 mg/ Premix 100 mls @ 400 mls/hr IV Q6H [facility] Stop: 05/10/16 04:14 Last Admin: 05/10/16 04:19 Dose: 400 mls/hr Ketamine HCl 100 mg/ Sodium (Chloride) 101 mls @ as directed IV .STK-MED ONE Stop: 05/09/16 09:46 Dextrose/Lactated Ringer's (Dextrose 5%-Lactated Ringers) 1,000 mls @ 100 mls/ hr IV ASDIRECTED [facility] Last Admin: 05/13/16 02:59 Dose: 100 mls/hr Magnesium Sulfate 2 gm/ Sodium (Chloride) 54 mls @ 27 mls/hr IV ONETIME ONE Stop: 05/13/16 11:59 Last Admin: 05/13/16 10:01 Dose: 27 mls/hr Magnesium Sulfate 2 gm/ Premix 50 mls @ 25 mls/hr IV Q6H [facility] Stop: 05/15/16 05:59 Last Admin: 05/16/16 09:03 Dose: Not Given Potassium Phosphate 20 mmole/ (Sodium Chloride) 256.6667 mls @ 85 mls/hr IV Q3H [facility] Stop: 05/13/16 18:59 Last Admin: 05/13/16 19:49 Dose: 85 mls/hr Dextrose/Lactated Ringer's (Dextrose 5%-Lactated Ringers) 1,000 mls @ 80 mls/ hr IV ASDIRECTED [facility] Stop: 05/14/16 14:29 Last Admin: 05/13/16 18:20 Dose: 25 mls/hr Meropenem 500 mg/ Sodium (Chloride) 50 mls @ 100 mls/hr IV ONETIME ONE Stop: 05/13/16 18:29 Last Admin: 05/13/16 18:28 Dose: 100 mls/hr Sodium Chloride (Normal Saline) 70 mls @ 3 mls/sec IV ASDIRECTED [facility] Last Admin: 05/13/16 19:22 Dose: 3 mls/sec Aztreonam 1 gm/ Sodium (Chloride) 50 mls @ 100 mls/hr IV Q8HR [facility] Last Admin: 05/14/16 05:39 Dose: 100 mls/hr Sodium Chloride (Normal Saline) Confirm Administered Dose 10 mls @ as directed .ROUTE .STK-MED ONE Stop: 05/14/16 08:52 Sodium Chloride (Normal Saline) Confirm Administered Dose 10 mls @ as directed .ROUTE .STK-MED ONE Stop: 05/14/16 09:28 Lactated Ringer's (Ringers, Lactated) Confirm Administered Dose 1,000 mls @ as directed .ROUTE .STK-MED ONE Stop: 05/14/16 09:34 Multivitamins/Minerals 10 ml/Chromium/Copper/Manganese/Seleni/Zn 1 ml/ Amino Ac/ Electrol/Dextrose/Calcium 1,011 mls @ 82 mls/hr IV .BY DURATION [facility] Stop: 05/16/16 10:59 Last Admin: 05/15/16 15:31 Dose: 82 mls/hr Amino Ac/Electrol/Dextrose/Calcium (Clinimix E 07/25) 1,000 mls @ 82 mls/hr IV .BY DURATION [facility] Stop: 05/16/16 10:59 Last Admin: 05/16/16 03:41 Dose: 82 mls/hr Acetaminophen 1,000 mg/ Premix 100 mls @ 400 mls/hr IV Q6H [facility] Stop: 05/15/16 10:14 Last Admin: 05/15/16 10:12 Dose: 400 mls/hr Potassium Phosphate 15 mmole/Lidocaine HCl 2 ml/ Sodium Chloride 157 mls @ 53 mls/hr IV Q3H [facility] Stop: 05/15/16 15:58 Last Admin: 05/15/16 13:04 Dose: 53 mls/hr Potassium Phosphate 15 mmole/ (Sodium Chloride) 155 mls @ 55 mls/hr IV Q3H [facility] Stop: 05/16/16 16:50 Last Admin: 05/16/16 17:27 Dose: 55 mls/hr Vancomycin HCl 1.3 gm/ Sodium (Chloride) 250 mls @ 167 mls/hr IV ONETIME ONE Stop: 05/17/16 14:29 Last Admin: 05/17/16 13:18 Dose: 167 mls/hr Ibuprofen (Motrin) 600 mg PO Q6H [facility] Last Admin: 05/13/16 05:24 Dose: Not Given Inulin (Fiber Choice) 4.5 gm PO BID [facility] Last Admin: 05/16/16 09:03 Dose: Not Given Iohexol (Omnipaque-300) 50 ml PO .ASDIRECTED [facility] Last Admin: 05/10/16 03:46 Dose: 50 ml Iopamidol (Isovue-300 (61%)) 100 ml IV . DIRECTED [facility] Last Admin: 05/13/16 19:22 Dose: 90 ml Ketamine HCl (Ketalar) 30 mg IV ASDIRECTED [facility] Stop: 05/09/16 11:00 Ketamine HCl (Ketalar) 30 mg IV .STK-MED ONE Stop: 05/09/16 09:46 Ketamine HCl (Ketalar) Confirm Administered Dose 500 mg .ROUTE .STK-MED ONE Stop: 05/14/16 08:51 Lactobacillus Rhamnosus (Culturelle) 2 cap PO BID [facility] Last Admin: 05/16/16 09:04 Dose: Not Given Lidocaine/Epinephrine (Xylocaine 1% With Epinephrine 1:100,000) Confirm Administered Dose 50 ml .ROUTE .STK-MED ONE Stop: 05/11/16 06:49 Last Admin: 05/11/16 09:09 Dose: 32 ml Lidocaine/Epinephrine (Xylocaine 1% With Epinephrine 1:100,000) Confirm Administered Dose 50 ml .ROUTE .STK-MED ONE Stop: 05/17/16 06:47 Last Admin: 05/17/16 08:07 Dose: 20 ml Meperidine HCl (Demerol) 50 mg IM ASDIRECTED PRN PRN Reason: PAIN Stop: 05/10/16 14:45 Meropenem (Merrem) Confirm Administered Dose 500 mg .ROUTE .STK-MED ONE Stop: 05/09/16 08:14 Last Admin: 05/09/16 10:24 Dose: 500 mg Meropenem (Merrem) Confirm Administered Dose 500 mg .ROUTE .STK-MED ONE Stop: 05/11/16 06:49 Last Admin: 05/11/16 09:10 Dose: 500 mg Meropenem (Merrem) Confirm Administered Dose 500 mg .ROUTE .STK-MED ONE Stop: 05/14/16 07:31 Last Admin: 05/14/16 10:19 Dose: 500 mg Meropenem (Merrem) Confirm Administered Dose 500 mg .ROUTE .STK-MED ONE Stop: 05/14/16 10:03 Last Admin: 05/14/16 10:19 Dose: 500 mg Meropenem (Merrem) Confirm Administered Dose 500 mg .ROUTE .STK-MED ONE Stop: 05/17/16 06:46 Last Admin: 05/17/16 08:12 Dose: 500 mg Metoclopramide HCl (Reglan) 10 mg IV Q6H [facility] Last Admin: 05/14/16 08:03 Dose: 10 mg Midazolam HCl (Versed 1 Mg/Ml) Confirm Administered Dose 2 mg .ROUTE .STK-MED ONE Stop: 05/14/16 07:44 Midazolam HCl (Versed 1 Mg/Ml) Confirm Administered Dose 2 mg .ROUTE .STK-MED ONE Stop: 05/17/16 07:22 Naloxone HCl (Narcan) 0.4 mg IV ASDIRECTED PRN PRN Reason: ITCHING Neostigmine Methylsulfate (Neostigmine) Confirm Administered Dose 5 mg .ROUTE .STK-MED ONE Stop: 05/09/16 08:37 Neostigmine Methylsulfate (Neostigmine) Confirm Administered Dose 5 mg .ROUTE .STK-MED ONE Stop: 05/14/16 07:44 Scopolamine Patch (Check) 1 each TOP DAILY [facility] Last Admin: 05/16/16 09:03 Dose: Not Given Check Fentanyl Patch (Daily) 1 each TOP DAILY [facility] Last Admin: 05/15/16 09:06 Dose: Not Given Ondansetron HCl (Zofran) Confirm Administered Dose 4 mg .ROUTE .STK-MED ONE Stop: 05/09/16 08:37 Ondansetron HCl (Zofran) Confirm Administered Dose 4 mg .ROUTE .STK-MED ONE Stop: 05/14/16 07:44 Pantoprazole Sodium (Protonix Iv) 40 mg IVPUSH Q24H [facility] Last Admin: 05/11/16 16:53 Dose: 40 mg Pantoprazole Sodium (Protonix) 40 mg PO Q24H [facility] Last Admin: 05/13/16 16:59 Dose: 40 mg Phenylephrine HCl (Yna-Synephrine) Confirm Administered Dose 10 mg .ROUTE .STK- MED ONE Stop: 05/14/16 09:27 Propofol (Diprivan 20 Ml) Confirm Administered Dose 200 mg .ROUTE .STK-MED ONE Stop: 05/09/16 08:37 Propofol (Diprivan 20 Ml) Confirm Administered Dose 200 mg .ROUTE .STK-MED ONE Stop: 05/11/16 07:00 Propofol (Diprivan 20 Ml) Confirm Administered Dose 200 mg .ROUTE .STK-MED ONE Stop: 05/14/16 07:44 Propofol (Diprivan 20 Ml) Confirm Administered Dose 200 mg .ROUTE .STK-MED ONE Stop: 05/17/16 07:22 Rocuronium [place] (Zemuron) Confirm Administered Dose 100 mg .ROUTE .STK-MED ONE Stop: 05/09/16 08:37 Rocuronium [place] (Zemuron) Confirm Administered Dose 50 mg .ROUTE .STK-MED ONE Stop: 05/14/16 07:44 Scopolamine (Transderm-Scop) 1.5 mg TOP Q72H [facility] Stop: 05/12/16 06:00 Last Admin: 05/09/16 07:53 Dose: 1.5 mg Scopolamine (Transderm-Scop) Confirm Administered Dose 1.5 mg .ROUTE .STK-MED ONE Stop: 05/09/16 08:37 Scopolamine (Transderm-Scop) 1.5 mg TOP ASDIRECTED [facility] Stop: 05/12/16 16:00 Scopolamine (Transderm-Scop) 1.5 mg TOP Q72H [facility] Last Admin: 05/12/16 09:17 Dose: 1.5 mg Sodium Chloride (Saline Flush) 10 ml FLUSH ONETIME ONE Stop: 05/13/16 18:10 Last Admin: 05/13/16 19:22 Dose: 10 ml Succinylcholine Chloride (Succinylcholine In Ns Pf) Confirm Administered Dose 200 mg .ROUTE .STK-MED ONE Stop: 05/09/16 08:37 Succinylcholine Chloride (Succinylcholine In Ns Pf) Confirm Administered Dose 200 mg .ROUTE .STK-MED ONE Stop: 05/14/16 07:44 Vancomycin HCl (Vancomycin) 1 gm IV .PHARMACY TO DOSE [facility] - Exam Quality Assessment: DVT prophylaxis General: alert, cooperative, moderate distress Lungs: Clear to auscultation, Normal respiratory effort Cardiovascular: regular rate, regular rhythm, no murmurs Abdomen: soft, tenderness, abnormal bowel sounds. No: rigidity, rebound, guarding, distension Extremities: no edema Skin: warm, dry, intact Consult PN Assessment/Plan Procedures: Procedures ASSAY OF LACTIC ACID (03/04/16) ASSAY OF MAGNESIUM (04/07/16) ASSAY OF PHOSPHORUS (04/07/16) ASSAY THYROID STIM HORMONE (10/08/15) BLOOD TYPING SEROLOGIC ABO (04/14/15) BLOOD TYPING SEROLOGIC RH(D) (04/14/15) C-REACTIVE PROTEIN (04/07/16) COMPLETE CBC AUTOMATED (04/07/16) COMPLETE CBC W/AUTO DIFF WBC (04/07/16) COMPREHEN METABOLIC PANEL (04/07/16) CT ABD & PELV W/CONTRAST (03/04/16) CULTURE SCREEN ONLY (11/10/15) ELECTROCARDIOGRAM TRACING (04/14/15) EMERGENCY DEPT VISIT (04/07/16) HYDRATE IV INFUSION ADD-ON (04/07/16) MEASURE BLOOD OXYGEN LEVEL (01/01/16) METABOLIC PANEL TOTAL CA (03/04/16) PT EVALUATION (11/10/15) RBC ANTIBODY SCREEN (04/14/15) ROUTINE VENIPUNCTURE (04/07/16) SPECIAL STAINS GROUP 2 (04/14/15) THER/PROPH/DIAG INJ IV PUSH (04/07/16) THER/PROPH/DIAG IV INF ADDON (03/04/16) THER/PROPH/DIAG IV INF INIT (03/04/16) THERAPEUTIC ACTIVITIES (11/10/15) TISSUE EXAM BY PATHOLOGIST (01/01/16) TISSUE EXAM BY PATHOLOGIST (01/01/16) TISSUE EXAM BY PATHOLOGIST (04/14/15) TISSUE EXAM BY PATHOLOGIST (04/14/15) TX/PRO/DX INJ NEW DRUG ADDON (04/07/16) URINALYSIS AUTO W/SCOPE (04/07/16) X-RAY EXAM OF ABDOMEN (04/07/16) X-RAY EXAM SERIES ABDOMEN (04/07/16) X-RAY UPPER GI DELAY W/O KUB (03/04/16) X-RAY UPPER GI&SMALL INTEST (04/07/16) Problem List Initiated/Reviewed/Updated: Yes My Orders last 24 hours: My Active Orders 05/17/16 11:30 Levofloxacin/Dextrose 5%-Water [Levaquin in D5W 750 MG/150 ML] 750 mg Premix Bag 1 bag IV Q24H 05/18/16 01:00 Vancomycin 1 gm Sodium Chloride 0.9% [Normal Saline] 250 ml IV Q12H Plan: Assessment and Plan - Abdominal abscess with peritonitis secondary to JJ leak - status post exploratory laparotomy 3/4. Improved over the past 24 hours but continues to have significant incisional pain, status post delayed primary closure earlier today -Remains on IV Zosyn and Azactam -Followup cultures -additional postop cares per surgical team Recurrent fever-chest x-ray shows evidence of infiltrate which would need to be considered a hospital-acquired pneumonia -Repeat blood cultures have been obtained -Sputum cultures -Expand IV antibiotic coverage including vancomycin and levofloxacin Elevated bilirubin with mild elevation of AST and ALT - history of similar elevations following surgery though not bilirubin to this extent. Levels have remained normal so far. -Labs in the morning Delirium - probably multifactorial with medications such as pain medications, cyclobenzaprine and scopolamine patch. Somnolent but she did just have surgery. -Minimize sedating medications as able S/P colectomy - post op day 6 - recovery has been delayed by intra-abdominal abscess as discussed above. -Postop cares per surgical team
[2016-05-17] MEDS: Pantoprazole 40 MG Vial IV SCH (15:35)
[2016-05-17] MEDS: Acetaminophen 650 MG Supp RECTAL PRN ×2 (17:45→18:47)
[2016-05-18] MEDS: Meropenem 500 MG in Sodium Chloride 0.9% 50 ML IV SCH ×4 (04:31→22:12)
[2016-05-18] MEDS: Aztreonam/Dextrose-Water 1 GM in Premix Bag 1 BAG IV SCH ×3 (05:44→21:31)
[2016-05-18] MEDS: Acetaminophen 650 MG Supp RECTAL PRN (05:53)
--- NOTE | 2016-05-18 08:45 | PCM.CONSN ---
- General Info Date of Service: 05/18/16 - Review of Systems General: Reports: fever, weakness. Denies: chills Pulmonary: Reports: no symptoms. Denies: cough, wheezing Cardiovascular: Reports: no symptoms Gastrointestinal: Reports: Abdominal pain. Denies: Flatus, Nausea, Vomiting Systems Review Comment:: This patient has been stable since yesterday, continues to have low-grade temperature elevations. Because of temperature elevations and appearance infiltrate on chest x-ray antibiotic coverage was expanded yesterday to include vancomycin and levofloxacin. Cultures have been obtained and are pending at this time. Not yet passing gas and no bowel movements, NG output remains relatively high. - Patient Data Vitals - most recent: Last Vital Signs Temp 100.8 F H 05/18/16 06:53 Pulse 111 H 05/17/16 17:00 Resp 23 H 05/18/16 06:00 BP 145/79 H 05/18/16 06:00 Pulse Ox 95 05/18/16 06:00 Weight - most recent: 133 lb 15.987 oz I&O - last 24 hours: Intake & Output 05/17/16 05/18/16 05/18/16 22:59 06:59 14:59 Intake Total 2659 2195 Output Total 2235 1588 Balance 424 607 Lab Results last 24 hrs: Laboratory Results - last 24 hr 05/18/16 05/18/16 Range/Units 05:53 05:53 WBC 13.7 H (4.5-11.0) K/uL RBC 2.94 L (3.30-5.50) M/uL Hgb 8.2 L (12.0-15.0) g/dL Hct 24.6 L (36.0-48.0) % MCV 84 (80-98) fL MCH 28 (27-31) pg MCHC 33 (32-36) % Plt Count 182 (150-400) K/uL Add Manual Diff Yes Neutrophils % (Manual) 85 H (36-66) % Band Neutrophils % 4 L (5-11) % Lymphocytes % (Manual) 5 L (24-44) % Monocytes % (Manual) 4 (2-6) % Eosinophils % (Manual) 2 (2-4) % Sodium 138 L (140-148) mmol/L Potassium 4.2 (3.6-5.2) mmol/L Chloride 107 (100-108) mmol/L Carbon Dioxide 26 (21-32) mmol/L Anion Gap 9.2 (5.0-14.0) mmol/L BUN 19 H (7-18) mg/dL Creatinine 0.5 L (0.6-1.0) mg/dL Est Cr Clr Drug Dosing 119.11 mL/min Estimated GFR (MDRD) > 60 (>60) Glucose 109 H (74-106) mg/dL Calcium 7.8 L (8.5-10.1) mg/dL Phosphorus 3.0 (2.5-4.9) mg/dL Magnesium 1.9 (1.8-2.4) mg/dL Total Bilirubin 0.8 (0.2-1.0) mg/dL AST 14 L (15-37) U/L ALT 14 (12-78) U/L Alkaline Phosphatase 48 (46-116) U/L Total Protein 4.7 L (6.4-8.2) g/dL Albumin 1.9 L (3.4-5.0) g/dL Globulin 2.8 (2.3-3.5) g/dL Albumin/Globulin Ratio 0.7 L (1.2-2.2) Dereje Results last 24 hrs: Microbiology 05/18/16 06:55 Gram Stain - Final Valentino Young Drainage 05/14/16 09:43 Anaerobic Culture - Final Gallbladder NO GROWTH AFTER 3 DAYS Med Orders - Current: Current Medications Acetaminophen (Tylenol) 650 mg RECTAL Q4H PRN PRN Reason: Fever Last Admin: 05/18/16 05:53 Dose: 650 mg Bacitracin (Bacitracin Oint 1 Gm) 1 dose TOP BID PRN PRN Reason: burn Last Admin: 05/12/16 20:31 Dose: 2 dose Dimethicone/Zinc Oxide (Rash Relief-Zinc Oxide [place]) 1 gm TOP ASDIRECTED PRN PRN Reason: Other Last Admin: 05/12/16 20:30 Dose: 1 bot Diphenhydramine HCl (Benadryl) 25 - 50 mg IVPUSH Q4H PRN PRN Reason: ITCHING Hydromorphone HCl (Dilaudid Single Fold Machine Operator 15 Mg In Ns 30 Ml) 0 mg IV ASDIRECTED PRN; Protocol PRN Reason: [employer] PAIN CONTROL Last Admin: 05/16/16 06:22 Dose: 15 mg Hydroxyzine HCl (Vistaril) 100 mg IM Q4H PRN PRN Reason: PAIN NOT CONTROLLED BY [employer] Last Admin: 05/17/16 04:20 Dose: 100 mg Meropenem 500 mg/ Sodium (Chloride) 50 mls @ 100 mls/hr IV Q6H [facility] Last Admin: 05/18/16 04:31 Dose: 100 mls/hr Aztreonam/Dextrose 1 gm/ (Premix) 50 mls @ 100 mls/hr IV Q8H [facility] Last Admin: 05/18/16 05:44 Dose: 100 mls/hr Lactated Ringer's (Ringers, Lactated) 1,000 mls @ 100 mls/hr IV ASDIRECTED [facility] Last Admin: 05/17/16 19:53 Dose: 100 mls/hr Albumin Human (Flexbumin 25%) 50 mls @ 50 mls/hr IV Q24H [facility] Last Admin: 05/17/16 09:24 Dose: 50 mls/hr Albumin Human (Flexbumin 25%) 50 mls @ 50 mls/hr IV Q24H [facility] Last Admin: 05/17/16 10:30 Dose: 50 mls/hr Albumin Human (Flexbumin 25%) 50 mls @ 50 mls/hr IV Q24H [facility] Last Admin: 05/17/16 11:34 Dose: 50 mls/hr Albumin Human (Flexbumin 25%) 50 mls @ 50 mls/hr IV Q24H [facility] Last Admin: 05/17/16 12:39 Dose: 50 mls/hr Multivitamins/Minerals 10 ml/Chromium/Copper/Manganese/Seleni/Zn 1 ml/ Amino Ac/ Electrol/Dextrose/Calcium 1,011 mls @ 82 mls/hr IV .BY DURATION [facility] Last Admin: 05/17/16 11:33 Dose: 82 mls/hr Amino Ac/Electrol/Dextrose/Calcium (Clinimix E 15) 1,000 mls @ 82 mls/hr IV .BY DURATION [facility] Last Admin: 05/17/16 23:51 Dose: 82 mls/hr Levofloxacin/Dextrose 750 mg/ (Premix) 150 mls @ 100 mls/hr IV Q24H [facility] Last Admin: 05/17/16 11:47 Dose: 100 mls/hr Vancomycin HCl 1 gm/ Sodium (Chloride) 250 mls @ 167 mls/hr IV Q12H [facility] Last Admin: 05/18/16 01:06 Dose: 167 mls/hr Naloxone HCl (Narcan) 0.1 mg IV ASDIRECTED PRN PRN Reason: decreased respiratory rate Ondansetron HCl (Zofran) 4 mg IVPUSH Q4H PRN PRN Reason: Nausea/Vomiting Last Admin: 05/16/16 09:55 Dose: 4 mg Pantoprazole Sodium (Protonix Iv) 40 mg IV Q24H [facility] Last Admin: 05/17/16 15:35 Dose: 40 mg Discontinued Medications Acetaminophen (Tylenol) 650 mg PO Q6H [facility] Last Admin: 05/16/16 09:03 Dose: Not Given Albuterol/Ipratropium (Duoneb 3.0-0.5 Mg/3 Ml) 3 ml NEB ONETIME STA Stop: 05/13/16 19:09 Last Admin: 05/13/16 19:21 Dose: 3 ml Alvimopan (Entereg) 12 mg PO ONETIME ONE Stop: 05/09/16 08:31 Last Admin: 05/09/16 08:30 Dose: 12 mg Alvimopan (Entereg) 12 mg PO Q12H [facility] Stop: 05/16/16 09:01 Last Admin: 05/10/16 09:04 Dose: 12 mg Bisacodyl (Dulcolax) 10 mg PO BID [facility] Last Admin: 05/11/16 09:52 Dose: Not Given Bupivacaine HCl (Marcaine 0.5%) Confirm Administered Dose 50 ml .ROUTE .STK-MED ONE Stop: 05/11/16 06:49 Last Admin: 05/11/16 09:09 Dose: 32 ml Bupivacaine HCl (Marcaine 0.5%) Confirm Administered Dose 50 ml .ROUTE .STK-MED ONE Stop: 05/17/16 06:47 Last Admin: 05/17/16 08:07 Dose: 20 ml Cefoxitin Sodium (Mefoxin) Confirm Administered Dose 2 gm .ROUTE .STK-MED ONE Stop: 05/09/16 06:55 Neomycin/Polymyxin 1 ml/ (Sodium Chloride 750 ml) 0 ml .XX ONETIME ONE Stop: 05/09/16 09:16 Last Admin: 05/09/16 13:25 Dose: Not Given Cyanocobalamin (Vitamin B12) 1,000 mcg IM ONETIME ONE Stop: 05/11/16 09:01 Last Admin: 05/11/16 09:53 Dose: 1,000 mcg Cyclobenzaprine HCl (Flexeril) 10 mg PO Q6H PRN PRN Reason: Muscle Spasm Last Admin: 05/13/16 06:22 Dose: 10 mg Dexamethasone (Dexamethasone) Confirm Administered Dose 4 mg .ROUTE .STK-MED ONE Stop: 05/09/16 08:37 Dexamethasone (Dexamethasone) Confirm Administered Dose 4 mg .ROUTE .STK-MED ONE Stop: 05/14/16 07:44 Diatrizoate Meglum/Diatrizoate Sod (Gastrografin 37%) 30 ml PO . DIRECTED [facility] Stop: 05/13/16 19:46 Last Admin: 05/13/16 19:33 Dose: 30 mg Diphenhydramine HCl (Benadryl) 25 mg IVPUSH Q6H PRN PRN Reason: ITCHING Diphenoxylate HCl/Atropine (Lomotil 0.025-2.5 Mg) 1 tab PO ONETIME ONE Stop: 05/12/16 10:36 Last Admin: 05/12/16 10:55 Dose: 1 tab Diphenoxylate HCl/Atropine (Lomotil 0.025-2.5 Mg) 1 tab PO Q6H PRN PRN Reason: Diarrhea Edrophonium Chloride (Enlon) Confirm Administered Dose 150 mg .ROUTE .STK-MED ONE Stop: 05/14/16 10:59 Fentanyl (Sublimaze) Confirm Administered Dose 500 mcg .ROUTE .STK-MED ONE Stop: 05/09/16 08:37 Fentanyl (Sublimaze) Confirm Administered Dose 100 mcg .ROUTE .STK-MED ONE Stop: 05/09/16 08:39 Fentanyl (Duragesic) 12 mcg TRDERM Q72H [facility] Last Admin: 05/13/16 13:15 Dose: Not Given Fentanyl (Sublimaze) Confirm Administered Dose 250 mcg .ROUTE .STK-MED ONE Stop: 05/14/16 07:44 Fentanyl (Duragesic) 25 mcg TRDERM Q72H [facility] Last Admin: 05/14/16 16:58 Dose: Not Given Fentanyl (Sublimaze) Confirm Administered Dose 100 mcg .ROUTE .STK-MED ONE Stop: 05/17/16 07:22 Furosemide (Lasix) 20 mg IVPUSH ONETIME ONE Stop: 05/13/16 18:01 Last Admin: 05/13/16 18:21 Dose: 20 mg Gabapentin (Neurontin) 300 mg PO ONETIME ONE Stop: 05/09/16 08:16 Last Admin: 05/09/16 07:53 Dose: 300 mg Gabapentin (Neurontin) 300 mg PO TID [facility] Last Admin: 05/12/16 21:54 Dose: 300 mg Glycopyrrolate () Confirm Administered Dose 1 mg .ROUTE .STK-MED ONE Stop: 05/09/16 08:37 Glycopyrrolate () Confirm Administered Dose 1 mg .ROUTE .[email or web address] ONE Stop: 05/14/16 07:44 Heparin Sodium (Porcine) (Heparin Sodium) 5,000 units SUBCUT Q12H [facility] Stop: 05/10/16 20:00 Last Admin: 05/10/16 06:23 Dose: 5,000 units Heparin Sodium (Porcine) (Heparin Sodium) 5,000 units SUBCUT Q12H [facility] Heparin Sodium (Porcine) (Heparin Sodium) 5,000 units SUBCUT ONETIME ONE Stop: 05/10/16 17:01 Last Admin: 05/10/16 16:45 Dose: 5,000 units Heparin Sodium (Porcine) (Heparin Lock Flush 100 Units/Ml Syringe) 500 units FLUSH .[email or web address] ONE Stop: 05/14/16 10:20 Last Admin: 05/14/16 10:19 Dose: 500 units Heparin Sodium (Porcine) (Heparin Lock Flush 100 Units/Ml Syringe) Confirm Administered Dose 500 units .ROUTE .[email or web address] ONE Stop: 05/15/16 17:28 Last Admin: 05/15/16 19:22 Dose: Not Given Hydromorphone HCl (Dilaudid) 2 - 4 mg PO Q4H PRN PRN Reason: PAIN Last Admin: 05/14/16 02:12 Dose: 4 mg Hydroxyzine HCl (Vistaril) 75 - 100 mg IM Q4H PRN PRN Reason: PAIN NOT CONTROLLED BY [employer] Last Admin: 05/13/16 02:48 Dose: 100 mg Dextrose/Lactated Ringer's (Dextrose 5%-Lactated Ringers) 1,000 mls @ 100 mls/ hr IV ASDIRECTED [facility] Last Admin: 05/09/16 07:55 Dose: 100 mls/hr Cefoxitin Sodium 2 gm/ Sodium (Chloride) 50 mls @ 100 mls/hr IV ONETIME ONE Stop: 05/09/16 09:44 Last Admin: 05/09/16 09:08 Dose: 100 mls/hr Fentanyl 2,500 mcg/ Sodium (Chloride) 250 mls @ 0 mls/hr EPIDUR TITRATE [facility]; Titrate PRN Reason: Protocol Last Admin: 05/10/16 09:12 Dose: 10 ml/hr, 10 mls/hr Ketamine HCl 100 mg/ Sodium (Chloride) 100 mls @ 18 mls/hr IV ASDIRECTED [facility] Stop: 05/09/16 13:00 Lactated Ringer's (Ringers, Lactated) Confirm Administered Dose 1,000 mls @ as directed .ROUTE .STK-MED ONE Stop: 05/09/16 08:37 Sodium Chloride (Normal Saline) Confirm Administered Dose 10 mls @ as directed .ROUTE .STK-MED ONE Stop: 05/09/16 08:39 Lidocaine HCl (Xylocaine-Mpf 1%) Confirm Administered Dose 2 mls @ as directed .ROUTE .STK-MED ONE Stop: 05/09/16 09:24 Lactated Ringer's (Ringers, Lactated) Confirm Administered Dose 1,000 mls @ as directed .ROUTE .STK-MED ONE Stop: 05/09/16 11:10 Lactated Ringer's (Ringers, Lactated) 500 mls @ 500 mls/hr IV .[facility] ONE Stop: 05/09/16 14:59 Last Admin: 05/09/16 14:03 Dose: 500 mls/hr Dextrose/Lactated Ringer's (Dextrose 5%-Lactated Ringers) 1,000 mls @ 200 mls/ hr IV ASDIRECTED [facility] Stop: 05/10/16 17:59 Last Admin: 05/10/16 15:05 Dose: 200 mls/hr Multivitamins/Minerals 10 ml/Thiamine HCl 200 mg/ Chromium/Copper/Manganese/ Seleni/Zn 1 ml/ Dextrose/Lactated Ringer's 1,013 mls @ 100 mls/hr IV DAILY@ 1600 [facility] Last Admin: 05/14/16 16:33 Dose: Not Given Cefoxitin Sodium 2 gm/ Sodium (Chloride) 50 mls @ 100 mls/hr IV Q6H [facility] Last Admin: 05/12/16 03:39 Dose: 100 mls/hr Acetaminophen 1,000 mg/ Premix 100 mls @ 400 mls/hr IV Q6H [facility] Stop: 05/10/16 04:14 Last Admin: 05/10/16 04:19 Dose: 400 mls/hr Ketamine HCl 100 mg/ Sodium (Chloride) 101 mls @ as directed IV .STK-MED ONE Stop: 05/09/16 09:46 Dextrose/Lactated Ringer's (Dextrose 5%-Lactated Ringers) 1,000 mls @ 100 mls/ hr IV ASDIRECTED [facility] Last Admin: 05/13/16 02:59 Dose: 100 mls/hr Magnesium Sulfate 2 gm/ Sodium (Chloride) 54 mls @ 27 mls/hr IV ONETIME ONE Stop: 05/13/16 11:59 Last Admin: 05/13/16 10:01 Dose: 27 mls/hr Magnesium Sulfate 2 gm/ Premix 50 mls @ 25 mls/hr IV Q6H [facility] Stop: 05/15/16 05:59 Last Admin: 05/16/16 09:03 Dose: Not Given Potassium Phosphate 20 mmole/ (Sodium Chloride) 256.6667 mls @ 85 mls/hr IV Q3H [facility] Stop: 05/13/16 18:59 Last Admin: 05/13/16 19:49 Dose: 85 mls/hr Dextrose/Lactated Ringer's (Dextrose 5%-Lactated Ringers) 1,000 mls @ 80 mls/ hr IV ASDIRECTED [facility] Stop: 05/14/16 14:29 Last Admin: 05/13/16 18:20 Dose: 25 mls/hr Meropenem 500 mg/ Sodium (Chloride) 50 mls @ 100 mls/hr IV ONETIME ONE Stop: 05/13/16 18:29 Last Admin: 05/13/16 18:28 Dose: 100 mls/hr Sodium Chloride (Normal Saline) 70 mls @ 3 mls/sec IV ASDIRECTED [facility] Last Admin: 05/13/16 19:22 Dose: 3 mls/sec Aztreonam 1 gm/ Sodium (Chloride) 50 mls @ 100 mls/hr IV Q8HR [facility] Last Admin: 05/14/16 05:39 Dose: 100 mls/hr Sodium Chloride (Normal Saline) Confirm Administered Dose 10 mls @ as directed .ROUTE .[facility] ONE Stop: 05/14/16 08:52 Sodium Chloride (Normal Saline) Confirm Administered Dose 10 mls @ as directed .ROUTE .[facility] ONE Stop: 05/14/16 09:28 Lactated Ringer's (Ringers, Lactated) Confirm Administered Dose 1,000 mls @ as directed .ROUTE .[facility] ONE Stop: 05/14/16 09:34 Multivitamins/Minerals 10 ml/Chromium/Copper/Manganese/Seleni/Zn 1 ml/ Amino Ac/ Electrol/Dextrose/Calcium 1,011 mls @ 82 mls/hr IV .BY DURATION [facility] Stop: 05/16/16 10:59 Last Admin: 05/15/16 15:31 Dose: 82 mls/hr Amino Ac/Electrol/Dextrose/Calcium (Clinimix E 5/15) 1,000 mls @ 82 mls/hr IV .BY DURATION [facility] Stop: 05/16/16 10:59 Last Admin: 05/16/16 03:41 Dose: 82 mls/hr Acetaminophen 1,000 mg/ Premix 100 mls @ 400 mls/hr IV Q6H [facility] Stop: 05/15/16 10:14 Last Admin: 05/15/16 10:12 Dose: 400 mls/hr Potassium Phosphate 15 mmole/Lidocaine HCl 2 ml/ Sodium Chloride 157 mls @ 53 mls/hr IV Q3H [facility] Stop: 05/15/16 15:58 Last Admin: 05/15/16 13:04 Dose: 53 mls/hr Potassium Phosphate 15 mmole/ (Sodium Chloride) 155 mls @ 55 mls/hr IV Q3H [facility] Stop: 05/16/16 16:50 Last Admin: 05/16/16 17:27 Dose: 55 mls/hr Vancomycin HCl 1.3 gm/ Sodium (Chloride) 250 mls @ 167 mls/hr IV ONETIME ONE Stop: 05/17/16 14:29 Last Admin: 05/17/16 13:18 Dose: 167 mls/hr Ibuprofen (Motrin) 600 mg PO Q6H [facility] Last Admin: 05/13/16 05:24 Dose: Not Given Inulin (Fiber Choice) 4.5 gm PO BID [facility] Last Admin: 05/16/16 09:03 Dose: Not Given Iohexol (Omnipaque-300) 50 ml PO .ASDIRECTED [facility] Last Admin: 05/10/16 03:46 Dose: 50 ml Iopamidol (Isovue-300 (61%)) 100 ml IV . DIRECTED [facility] Last Admin: 05/13/16 19:22 Dose: 90 ml Ketamine HCl (Ketalar) 30 mg IV ASDIRECTED [facility] Stop: 05/09/16 11:00 Ketamine HCl (Ketalar) 30 mg IV .STK-MED ONE Stop: 05/09/16 09:46 Ketamine HCl (Ketalar) Confirm Administered Dose 500 mg .ROUTE .STK-MED ONE Stop: 05/14/16 08:51 Lactobacillus Rhamnosus (Culturelle) 2 cap PO BID [facility] Last Admin: 05/16/16 09:04 Dose: Not Given Lidocaine/Epinephrine (Xylocaine 1% With Epinephrine 1:100,000) Confirm Administered Dose 50 ml .ROUTE .STK-MED ONE Stop: 05/11/16 06:49 Last Admin: 05/11/16 09:09 Dose: 32 ml Lidocaine/Epinephrine (Xylocaine 1% With Epinephrine 1:100,000) Confirm Administered Dose 50 ml .ROUTE .STK-MED ONE Stop: 05/17/16 06:47 Last Admin: 05/17/16 08:07 Dose: 20 ml Meperidine HCl (Demerol) 50 mg IM ASDIRECTED PRN PRN Reason: PAIN Stop: 05/10/16 14:45 Meropenem (Merrem) Confirm Administered Dose 500 mg .ROUTE .STK-MED ONE Stop: 05/09/16 08:14 Last Admin: 05/09/16 10:24 Dose: 500 mg Meropenem (Merrem) Confirm Administered Dose 500 mg .ROUTE .STK-MED ONE Stop: 05/11/16 06:49 Last Admin: 05/11/16 09:10 Dose: 500 mg Meropenem (Merrem) Confirm Administered Dose 500 mg .ROUTE .STK-MED ONE Stop: 05/14/16 07:31 Last Admin: 05/14/16 10:19 Dose: 500 mg Meropenem (Merrem) Confirm Administered Dose 500 mg .ROUTE .STK-MED ONE Stop: 05/14/16 10:03 Last Admin: 05/14/16 10:19 Dose: 500 mg Meropenem (Merrem) Confirm Administered Dose 500 mg .ROUTE .STK-MED ONE Stop: 05/17/16 06:46 Last Admin: 05/17/16 08:12 Dose: 500 mg Metoclopramide HCl (Reglan) 10 mg IV Q6H [facility] Last Admin: 05/14/16 08:03 Dose: 10 mg Midazolam HCl (Versed 1 Mg/Ml) Confirm Administered Dose 2 mg .ROUTE .STK-MED ONE Stop: 05/14/16 07:44 Midazolam HCl (Versed 1 Mg/Ml) Confirm Administered Dose 2 mg .ROUTE .STK-MED ONE Stop: 05/17/16 07:22 Naloxone HCl (Narcan) 0.4 mg IV ASDIRECTED PRN PRN Reason: ITCHING Neostigmine Methylsulfate (Neostigmine) Confirm Administered Dose 5 mg .ROUTE .ST-MED ONE Stop: 05/09/16 08:37 Neostigmine Methylsulfate (Neostigmine) Confirm Administered Dose 5 mg .ROUTE .ST-MED ONE Stop: 05/14/16 07:44 Scopolamine Patch (Check) 1 each TOP DAILY [facility] Last Admin: 05/16/16 09:03 Dose: Not Given Check Fentanyl Patch (Daily) 1 each TOP DAILY [facility] Last Admin: 05/15/16 09:06 Dose: Not Given Ondansetron HCl (Zofran) Confirm Administered Dose 4 mg .ROUTE .ST-MED ONE Stop: 05/09/16 08:37 Ondansetron HCl (Zofran) Confirm Administered Dose 4 mg .ROUTE .ST-MED ONE Stop: 05/14/16 07:44 Pantoprazole Sodium (Protonix Iv) 40 mg IVPUSH Q24H [facility] Last Admin: 05/11/16 16:53 Dose: 40 mg Pantoprazole Sodium (Protonix) 40 mg PO Q24H [facility] Last Admin: 05/13/16 16:59 Dose: 40 mg Phenylephrine HCl (Yan-Synephrine) Confirm Administered Dose 10 mg .ROUTE .STK- MED ONE Stop: 05/14/16 09:27 Propofol (Diprivan 20 Ml) Confirm Administered Dose 200 mg .ROUTE .STK-MED ONE Stop: 05/09/16 08:37 Propofol (Diprivan 20 Ml) Confirm Administered Dose 200 mg .ROUTE .STK-MED ONE Stop: 05/11/16 07:00 Propofol (Diprivan 20 Ml) Confirm Administered Dose 200 mg .ROUTE .STK-MED ONE Stop: 05/14/16 07:44 Propofol (Diprivan 20 Ml) Confirm Administered Dose 200 mg .ROUTE .STK-MED ONE Stop: 05/17/16 07:22 Rocuronium [place] (Zemuron) Confirm Administered Dose 100 mg .ROUTE .STK-MED ONE Stop: 05/09/16 08:37 Rocuronium [place] (Zemuron) Confirm Administered Dose 50 mg .ROUTE .STK-MED ONE Stop: 05/14/16 07:44 Scopolamine (Transderm-Scop) 1.5 mg TOP Q72H [facility] Stop: 05/12/16 06:00 Last Admin: 05/09/16 07:53 Dose: 1.5 mg Scopolamine (Transderm-Scop) Confirm Administered Dose 1.5 mg .ROUTE .STK-MED ONE Stop: 05/09/16 08:37 Scopolamine (Transderm-Scop) 1.5 mg TOP ASDIRECTED [facility] Stop: 05/12/16 16:00 Scopolamine (Transderm-Scop) 1.5 mg TOP Q72H [facility] Last Admin: 05/12/16 09:17 Dose: 1.5 mg Sodium Chloride (Saline Flush) 10 ml FLUSH ONETIME ONE Stop: 05/13/16 18:10 Last Admin: 05/13/16 19:22 Dose: 10 ml Succinylcholine Chloride (Succinylcholine In Ns Pf) Confirm Administered Dose 200 mg .ROUTE .STK-MED ONE Stop: 05/09/16 08:37 Succinylcholine Chloride (Succinylcholine In Ns Pf) Confirm Administered Dose 200 mg .ROUTE .STK-MED ONE Stop: 05/14/16 07:44 Vancomycin HCl (Vancomycin) 1 gm IV .PHARMACY TO DOSE [facility] - Exam Quality Assessment: supplemental oxygen, urine catheter, DVT prophylaxis General: alert, oriented, moderate distress Lungs: Clear to auscultation, Normal respiratory effort Cardiovascular: regular rate, regular rhythm, no murmurs Abdomen: bowel sounds present, soft, no tenderness, no distension Extremities: no edema Skin: warm, dry, intact Consult PN Assessment/Plan Procedures: Procedures ASSAY OF LACTIC ACID (03/04/16) ASSAY OF MAGNESIUM (04/07/16) ASSAY OF PHOSPHORUS (04/07/16) ASSAY THYROID STIM HORMONE (10/08/15) BLOOD TYPING SEROLOGIC ABO (04/14/15) BLOOD TYPING SEROLOGIC RH(D) (04/14/15) C-REACTIVE PROTEIN (04/07/16) COMPLETE CBC AUTOMATED (04/07/16) COMPLETE CBC W/AUTO DIFF WBC (04/07/16) COMPREHEN METABOLIC PANEL (04/07/16) CT ABD & PELV W/CONTRAST (03/04/16) CULTURE SCREEN ONLY (11/10/15) ELECTROCARDIOGRAM TRACING (04/14/15) EMERGENCY DEPT VISIT (04/07/16) HYDRATE IV INFUSION ADD-ON (04/07/16) MEASURE BLOOD OXYGEN LEVEL (01/01/16) METABOLIC PANEL TOTAL CA (03/04/16) PT EVALUATION (11/10/15) RBC ANTIBODY SCREEN (04/14/15) ROUTINE VENIPUNCTURE (04/07/16) SPECIAL STAINS GROUP 2 (04/14/15) THER/PROPH/DIAG INJ IV PUSH (04/07/16) THER/PROPH/DIAG IV INF ADDON (03/04/16) THER/PROPH/DIAG IV INF INIT (03/04/16) THERAPEUTIC ACTIVITIES (11/10/15) TISSUE EXAM BY PATHOLOGIST (01/01/16) TISSUE EXAM BY PATHOLOGIST (01/01/16) TISSUE EXAM BY PATHOLOGIST (04/14/15) TISSUE EXAM BY PATHOLOGIST (04/14/15) TX/PRO/DX INJ NEW DRUG ADDON (04/07/16) URINALYSIS AUTO W/SCOPE (04/07/16) X-RAY EXAM OF ABDOMEN (04/07/16) X-RAY EXAM SERIES ABDOMEN (04/07/16) X-RAY UPPER GI DELAY W/O KUB (03/04/16) X-RAY UPPER GI&SMALL INTEST (04/07/16) Problem List Initiated/Reviewed/Updated: Yes My Orders last 24 hours: My Active Orders 05/17/16 11:30 Levofloxacin/Dextrose 5%-Water [Levaquin in D5W 750 MG/150 ML] 750 mg Premix Bag 1 bag IV Q24H 05/17/16 17:36 Acetaminophen [Tylenol] 650 mg RECTAL Q4H PRN 05/18/16 01:00 Vancomycin 1 gm Sodium Chloride 0.9% [Normal Saline] 250 ml IV Q12H Plan: Assessment and Plan - Abdominal abscess with peritonitis secondary to JJ leak - status post exploratory laparotomy 3/4. Improved over the past 24 hours but continues to have significant incisional pain, status post delayed primary closure yesterday -Remains on IV Zosyn and Azactam -Followup cultures -additional postop cares per surgical team Recurrent fever-chest x-ray shows evidence of infiltrate which would need to be considered a hospital-acquired pneumonia -Repeat blood cultures have been obtained -Sputum cultures -Expand IV antibiotic coverage including vancomycin and levofloxacin, pending culture results Elevated bilirubin with mild elevation of AST and ALT - history of similar elevations following surgery though not bilirubin to this extent. Levels have remained normal so far. -Labs in the morning Delirium - resolved S/P colectomy - post op day 6 - recovery has been delayed by intra-abdominal abscess as discussed above. -Postop cares per surgical team
[2016-05-18] MEDS: HYDROmorphone/Normal Saline 15 MG/30 ML PCA IV PRN (09:41)
[2016-05-18] MEDS: Lactated Ringers 1,000 ML IV SCH (09:43)
[2016-05-18] MEDS: Albumin 25% 50 ML IV SCH ×4 (09:44→12:50)
[2016-05-18] MEDS: Levofloxacin/Dextrose 5%-Water 750 MG in Premix Bag 1 BAG IV SCH (11:40)
[2016-05-18] MEDS: 1: AA 5%/Calcium/D15W/Lytes 1,000 ML with MVI, Adult with Vitamin K 10 ML, Chromium/Copp IV SCH ×3 (12:05)
[2016-05-18] MEDS: Pantoprazole 40 MG Vial IV SCH (16:00)
[2016-05-19] MEDS: 1: AA 5%/Calcium/D15W/Lytes 1,000 ML with MVI, Adult with Vitamin K 10 ML, Chromium/Copp IV SCH ×6 (00:29→12:40)
[2016-05-19] MEDS: Lactated Ringers 1,000 ML IV SCH (00:34)
[2016-05-19] MEDS: Meropenem 500 MG in Sodium Chloride 0.9% 50 ML IV SCH ×4 (03:59→21:49)
[2016-05-19] MEDS: Aztreonam/Dextrose-Water 1 GM in Premix Bag 1 BAG IV SCH ×3 (05:59→21:11)
[2016-05-19] MEDS ORDERED: Iopamidol 612 MG/ML 100 ML Bottle IV PRN (07:08)
[2016-05-19] MEDS ORDERED: Iohexol 647 MG/ML 10 ML SDV PO PRN (07:09)
--- NOTE | 2016-05-19 07:59 | PN ---
DATE OF SERVICE: 05/17/2016 The patient's temperature 100-101 during the night. Vital signs otherwise stable. Anticipation is to be dealing with some pulmonary issues. The LACIE drains in the left upper quadrant is slightly tanned, but does not look to be a leak in terms of the small bowel. This is likely related to the staining of the tissues and such. She had a delayed primary closure. Otherwise, the NG tube output has remained quite high, and I think that will stay high until such time as the ileus resolves, which is probably going to take a while. We will continue with TPN. Well have Dr. Shanks review the case and see if he has any input as she will likely need hospitalist coverage when I am absent next week. If the fevers persist or the clinical situation worsens, we need to obtain a CT scan to rule out any secondary abscess formation. Kit Duke MD /[id number]
--- NOTE | 2016-05-19 08:09 | PN ---
DATE OF SERVICE: 05/18/2016 The patient remains running temperature in the 100 range. Vital signs otherwise stable. Bowel and urine output have been adequate. No major problems are noted with the labs. LACIE #1 still has some clotting, we will get a culture on that today. I suspect the main problem at this point is pulmonary. We will work on that today. If the fevers continue over the next 24 hours, we will probably need to get a CT scan of the abdomen tomorrow to make sure were not dealing with any undrained areas and adjust the antibiotics based on Gram stain on the LACIE #1. It is notable that the NG output has now decreased quite a bit. So I think we are probably regaining some GI tract motility and I think we will leave the NG tube in for 1 more day and perhaps get an x-ray tomorrow morning with some water soluble contrast through the NG tube to see how well that is emptying. For the time being, keeping any pressure off the new proximal anastomosis would be helpful, however. Kit Duke MD /[id number]
[2016-05-19] MEDS: Albumin 25% 50 ML IV SCH ×4 (08:44→11:19)
--- NOTE | 2016-05-19 09:22 | PCM.CONSN ---
- General Info Date of Service: 05/19/16 - Review of Systems General: Reports: fever, weakness. Denies: chills Pulmonary: Reports: shortness of breath. Denies: pleuritic chest pain, cough, sputum, hemoptysis, wheezing Cardiovascular: Reports: no symptoms Gastrointestinal: Reports: Abdominal pain. Denies: Difficulty swallowing, Flatus, Nausea, Vomiting Systems Review Comment:: This patient has continued to experience low-grade temperature elevations, white count has gone up further today. CT scan of the abdomen and pelvis was ordered by Dr. Duke and has been completed but formal report is not yet available. - Patient Data Vitals - most recent: Last Vital Signs Temp 101.1 F H 05/19/16 08:00 Pulse 106 H 05/19/16 08:00 Resp 18 05/19/16 08:00 BP 138/72 05/19/16 08:00 Pulse Ox 95 05/19/16 08:00 Weight - most recent: 133 lb 15.987 oz I&O - last 24 hours: Intake & Output 05/18/16 05/19/16 05/19/16 22:59 06:59 14:59 Intake Total 2606 2167 Output Total 2338 2096 300 Balance 268 71 -300 Lab Results last 24 hrs: Laboratory Results - last 24 hr 05/19/16 05/19/16 Range/Units 04:00 04:00 WBC 17.5 H (4.5-11.0) K/uL RBC 2.80 L (3.30-5.50) M/uL Hgb 7.7 L (12.0-15.0) g/dL Hct 23.4 L (36.0-48.0) % MCV 84 (80-98) fL MCH 28 (27-31) pg MCHC 33 (32-36) % Plt Count 266 (150-400) K/uL Sodium 137 L (140-148) mmol/L Potassium 4.3 (3.6-5.2) mmol/L Chloride 105 (100-108) mmol/L Carbon Dioxide 26 (21-32) mmol/L Anion Gap 10.3 (5.0-14.0) mmol/L BUN 18 (7-18) mg/dL Creatinine 0.5 L (0.6-1.0) mg/dL Est Cr Clr Drug Dosing 119.11 mL/min Estimated GFR (MDRD) > 60 (>60) Glucose 100 (74-106) mg/dL Calcium 7.9 L (8.5-10.1) mg/dL Phosphorus 3.3 (2.5-4.9) mg/dL Magnesium 1.9 (1.8-2.4) mg/dL Total Bilirubin 0.6 (0.2-1.0) mg/dL AST 18 (15-37) U/L ALT 13 (12-78) U/L Alkaline Phosphatase 41 L (46-116) U/L Total Protein 4.8 L (6.4-8.2) g/dL Albumin 1.9 L (3.4-5.0) g/dL Globulin 2.9 (2.3-3.5) g/dL Albumin/Globulin Ratio 0.7 L (1.2-2.2) Dereje Results last 24 hrs: Microbiology 05/18/16 06:55 Gram Stain - Final Valentino Young Drainage Wound Culture - Preliminary Med Orders - Current: Current Medications Acetaminophen (Tylenol) 650 mg RECTAL Q4H PRN PRN Reason: Fever Last Admin: 05/18/16 05:53 Dose: 650 mg Bacitracin (Bacitracin Oint 1 Gm) 1 dose TOP BID PRN PRN Reason: burn Last Admin: 05/12/16 20:31 Dose: 2 dose Dimethicone/Zinc Oxide (Rash Relief-Zinc Oxide [place]) 1 gm TOP ASDIRECTED PRN PRN Reason: Other Last Admin: 05/12/16 20:30 Dose: 1 bot Diphenhydramine HCl (Benadryl) 25 - 50 mg IVPUSH Q4H PRN PRN Reason: ITCHING Hydromorphone HCl (Dilaudid 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 Machine Operator 15 Mg In Ns 30 Ml) 0 mg IV ASDIRECTED PRN; Protocol PRN 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 Last Admin: 05/18/16 09:41 Dose: 15 mg Hydroxyzine HCl (Vistaril) 100 mg IM Q4H PRN PRN Reason: PAIN NOT CONTROLLED BY DITCHING MACHINE OPERATOR Last Admin: 05/17/16 04:20 Dose: 100 mg Meropenem 500 mg/ Sodium (Chloride) 50 mls @ 100 mls/hr IV Q6H [facility] Last Admin: 05/19/16 03:59 Dose: 100 mls/hr Aztreonam/Dextrose 1 gm/ (Premix) 50 mls @ 100 mls/hr IV Q8H [facility] Last Admin: 05/19/16 05:59 Dose: 100 mls/hr Lactated Ringer's (Ringers, Lactated) 1,000 mls @ 100 mls/hr IV ASDIRECTED [facility] Last Admin: 05/19/16 00:34 Dose: 100 mls/hr Albumin Human (Flexbumin 25%) 50 mls @ 50 mls/hr IV Q24H [facility] Last Admin: 05/19/16 08:44 Dose: 50 mls/hr Albumin Human (Flexbumin 25%) 50 mls @ 50 mls/hr IV Q24H [facility] Last Admin: 05/18/16 10:55 Dose: 50 mls/hr Albumin Human (Flexbumin 25%) 50 mls @ 50 mls/hr IV Q24H [facility] Last Admin: 05/18/16 11:40 Dose: 50 mls/hr Albumin Human (Flexbumin 25%) 50 mls @ 50 mls/hr IV Q24H [facility] Last Admin: 05/18/16 12:50 Dose: 50 mls/hr Multivitamins/Minerals 10 ml/Chromium/Copper/Manganese/Seleni/Zn 1 ml/ Amino Ac/ Electrol/Dextrose/Calcium 1,011 mls @ 82 mls/hr IV .BY DURATION [facility] Last Admin: 05/18/16 12:05 Dose: 82 mls/hr Amino Ac/Electrol/Dextrose/Calcium (Clinimix E 5/15) 1,000 mls @ 82 mls/hr IV .BY DURATION [facility] Last Admin: 05/19/16 00:29 Dose: 82 mls/hr Levofloxacin/Dextrose 750 mg/ (Premix) 150 mls @ 100 mls/hr IV Q24H [facility] Last Admin: 05/18/16 11:40 Dose: 100 mls/hr Vancomycin HCl 1 gm/ Sodium (Chloride) 250 mls @ 167 mls/hr IV Q12H [facility] Last Admin: 05/19/16 00:30 Dose: 167 mls/hr Iohexol (Omnipaque-300) 10 ml PO . DIRECTED PRN PRN Reason: RADIOLOGY EXAM Stop: 05/20/16 08:30 Last Admin: 05/19/16 07:44 Dose: 10 ml Naloxone HCl (Narcan) 0.1 mg IV ASDIRECTED PRN PRN Reason: decreased respiratory rate Ondansetron HCl (Zofran) 4 mg IVPUSH Q4H PRN PRN Reason: Nausea/Vomiting Last Admin: 05/16/16 09:55 Dose: 4 mg Pantoprazole Sodium (Protonix Iv) 40 mg IV Q24H [facility] Last Admin: 05/18/16 16:00 Dose: 40 mg Discontinued Medications Acetaminophen (Tylenol) 650 mg PO Q6H [facility] Last Admin: 05/16/16 09:03 Dose: Not Given Albuterol/Ipratropium (Duoneb 3.0-0.5 Mg/3 Ml) 3 ml NEB ONETIME STA Stop: 05/13/16 19:09 Last Admin: 05/13/16 19:21 Dose: 3 ml Alvimopan (Entereg) 12 mg PO ONETIME ONE Stop: 05/09/16 08:31 Last Admin: 05/09/16 08:30 Dose: 12 mg Alvimopan (Entereg) 12 mg PO Q12H [facility] Stop: 05/16/16 09:01 Last Admin: 05/10/16 09:04 Dose: 12 mg Bisacodyl (Dulcolax) 10 mg PO BID [facility] Last Admin: 05/11/16 09:52 Dose: Not Given Bupivacaine HCl (Marcaine 0.5%) Confirm Administered Dose 50 ml .ROUTE .STK-MED ONE Stop: 05/11/16 06:49 Last Admin: 05/11/16 09:09 Dose: 32 ml Bupivacaine HCl (Marcaine 0.5%) Confirm Administered Dose 50 ml .ROUTE .STK-MED ONE Stop: 05/17/16 06:47 Last Admin: 05/17/16 08:07 Dose: 20 ml Cefoxitin Sodium (Mefoxin) Confirm Administered Dose 2 gm .ROUTE .STK-MED ONE Stop: 05/09/16 06:55 Neomycin/Polymyxin 1 ml/ (Sodium Chloride 750 ml) 0 ml .XX ONETIME ONE Stop: 05/09/16 09:16 Last Admin: 05/09/16 13:25 Dose: Not Given Cyanocobalamin (Vitamin B12) 1,000 mcg IM ONETIME ONE Stop: 05/11/16 09:01 Last Admin: 05/11/16 09:53 Dose: 1,000 mcg Cyclobenzaprine HCl (Flexeril) 10 mg PO Q6H PRN PRN Reason: Muscle Spasm Last Admin: 05/13/16 06:22 Dose: 10 mg Dexamethasone (Dexamethasone) Confirm Administered Dose 4 mg .ROUTE .STK-MED ONE Stop: 05/09/16 08:37 Dexamethasone (Dexamethasone) Confirm Administered Dose 4 mg .ROUTE .STK-MED ONE Stop: 05/14/16 07:44 Diatrizoate Meglum/Diatrizoate Sod (Gastrografin 37%) 30 ml PO . DIRECTED [facility] Stop: 05/13/16 19:46 Last Admin: 05/13/16 19:33 Dose: 30 mg Diphenhydramine HCl (Benadryl) 25 mg IVPUSH Q6H PRN PRN Reason: ITCHING Diphenoxylate HCl/Atropine (Lomotil 0.025-2.5 Mg) 1 tab PO ONETIME ONE Stop: 05/12/16 10:36 Last Admin: 05/12/16 10:55 Dose: 1 tab Diphenoxylate HCl/Atropine (Lomotil 0.025-2.5 Mg) 1 tab PO Q6H PRN PRN Reason: Diarrhea Edrophonium Chloride (Enlon) Confirm Administered Dose 150 mg .ROUTE .STK-MED ONE Stop: 05/14/16 10:59 Fentanyl (Sublimaze) Confirm Administered Dose 500 mcg .ROUTE .STK-MED ONE Stop: 05/09/16 08:37 Fentanyl (Sublimaze) Confirm Administered Dose 100 mcg .ROUTE .STK-MED ONE Stop: 05/09/16 08:39 Fentanyl (Duragesic) 12 mcg TRDERM Q72H [facility] Last Admin: 05/13/16 13:15 Dose: Not Given Fentanyl (Sublimaze) Confirm Administered Dose 250 mcg .ROUTE .STK-MED ONE Stop: 05/14/16 07:44 Fentanyl (Duragesic) 25 mcg TRDERM Q72H [facility] Last Admin: 05/14/16 16:58 Dose: Not Given Fentanyl (Sublimaze) Confirm Administered Dose 100 mcg .ROUTE .STK-MED ONE Stop: 05/17/16 07:22 Furosemide (Lasix) 20 mg IVPUSH ONETIME ONE Stop: 05/13/16 18:01 Last Admin: 05/13/16 18:21 Dose: 20 mg Gabapentin (Neurontin) 300 mg PO ONETIME ONE Stop: 05/09/16 08:16 Last Admin: 05/09/16 07:53 Dose: 300 mg Gabapentin (Neurontin) 300 mg PO TID [facility] Last Admin: 05/12/16 21:54 Dose: 300 mg Glycopyrrolate () Confirm Administered Dose 1 mg .ROUTE .STK-MED ONE Stop: 05/09/16 08:37 Glycopyrrolate () Confirm Administered Dose 1 mg .ROUTE .STK-MED ONE Stop: 05/14/16 07:44 Heparin Sodium (Porcine) (Heparin Sodium) 5,000 units SUBCUT Q12H [facility] Stop: 05/10/16 20:00 Last Admin: 05/10/16 06:23 Dose: 5,000 units Heparin Sodium (Porcine) (Heparin Sodium) 5,000 units SUBCUT Q12H [facility] Heparin Sodium (Porcine) (Heparin Sodium) 5,000 units SUBCUT ONETIME ONE Stop: 05/10/16 17:01 Last Admin: 05/10/16 16:45 Dose: 5,000 units Heparin Sodium (Porcine) (Heparin Lock Flush 100 Units/Ml Syringe) 500 units FLUSH .STK-MED ONE Stop: 05/14/16 10:20 Last Admin: 05/14/16 10:19 Dose: 500 units Heparin Sodium (Porcine) (Heparin Lock Flush 100 Units/Ml Syringe) Confirm Administered Dose 500 units .ROUTE .STK-MED ONE Stop: 05/15/16 17:28 Last Admin: 05/15/16 19:22 Dose: Not Given Hydromorphone HCl (Dilaudid) 2 - 4 mg PO Q4H PRN PRN Reason: PAIN Last Admin: 05/14/16 02:12 Dose: 4 mg Hydroxyzine HCl (Vistaril) 75 - 100 mg IM Q4H PRN PRN Reason: PAIN NOT CONTROLLED BY DITCHING MACHINE OPERATOR Last Admin: 05/13/16 02:48 Dose: 100 mg Dextrose/Lactated Ringer's (Dextrose 5%-Lactated Ringers) 1,000 mls @ 100 mls/ hr IV ASDIRECTED [facility] Last Admin: 05/09/16 07:55 Dose: 100 mls/hr Cefoxitin Sodium 2 gm/ Sodium (Chloride) 50 mls @ 100 mls/hr IV ONETIME ONE Stop: 05/09/16 09:44 Last Admin: 05/09/16 09:08 Dose: 100 mls/hr Fentanyl 2,500 mcg/ Sodium (Chloride) 250 mls @ 0 mls/hr EPIDUR TITRATE [facility]; Titrate PRN Reason: Protocol Last Admin: 05/10/16 09:12 Dose: 10 ml/hr, 10 mls/hr Ketamine HCl 100 mg/ Sodium (Chloride) 100 mls @ 18 mls/hr IV ASDIRECTED [facility] Stop: 05/09/16 13:00 Lactated Ringer's (Ringers, Lactated) Confirm Administered Dose 1,000 mls @ as directed .ROUTE .ST-MED ONE Stop: 05/09/16 08:37 Sodium Chloride (Normal Saline) Confirm Administered Dose 10 mls @ as directed .ROUTE .[facility]-MED ONE Stop: 05/09/16 08:39 Lidocaine HCl (Xylocaine-Mpf 1%) Confirm Administered Dose 2 mls @ as directed .ROUTE .[facility] ONE Stop: 05/09/16 09:24 Lactated Ringer's (Ringers, Lactated) Confirm Administered Dose 1,000 mls @ as directed .ROUTE .[facility] ONE Stop: 05/09/16 11:10 Lactated Ringer's (Ringers, Lactated) 500 mls @ 500 mls/hr IV .[facility] ONE Stop: 05/09/16 14:59 Last Admin: 05/09/16 14:03 Dose: 500 mls/hr Dextrose/Lactated Ringer's (Dextrose 5%-Lactated Ringers) 1,000 mls @ 200 mls/ hr IV ASDIRECTED [facility] Stop: 05/10/16 17:59 Last Admin: 05/10/16 15:05 Dose: 200 mls/hr Multivitamins/Minerals 10 ml/Thiamine HCl 200 mg/ Chromium/Copper/Manganese/ Seleni/Zn 1 ml/ Dextrose/Lactated Ringer's 1,013 mls @ 100 mls/hr IV DAILY@ 1600 [facility] Last Admin: 05/14/16 16:33 Dose: Not Given Cefoxitin Sodium 2 gm/ Sodium (Chloride) 50 mls @ 100 mls/hr IV Q6H [facility] Last Admin: 05/12/16 03:39 Dose: 100 mls/hr Acetaminophen 1,000 mg/ Premix 100 mls @ 400 mls/hr IV Q6H [facility] Stop: 05/10/16 04:14 Last Admin: 05/10/16 04:19 Dose: 400 mls/hr Ketamine HCl 100 mg/ Sodium (Chloride) 101 mls @ as directed IV .STK-MED ONE Stop: 05/09/16 09:46 Dextrose/Lactated Ringer's (Dextrose 5%-Lactated Ringers) 1,000 mls @ 100 mls/ hr IV ASDIRECTED [facility] Last Admin: 05/13/16 02:59 Dose: 100 mls/hr Magnesium Sulfate 2 gm/ Sodium (Chloride) 54 mls @ 27 mls/hr IV ONETIME ONE Stop: 05/13/16 11:59 Last Admin: 05/13/16 10:01 Dose: 27 mls/hr Magnesium Sulfate 2 gm/ Premix 50 mls @ 25 mls/hr IV Q6H [facility] Stop: 05/15/16 05:59 Last Admin: 05/16/16 09:03 Dose: Not Given Potassium Phosphate 20 mmole/ (Sodium Chloride) 256.6667 mls @ 85 mls/hr IV Q3H [facility] Stop: 05/13/16 18:59 Last Admin: 05/13/16 19:49 Dose: 85 mls/hr Dextrose/Lactated Ringer's (Dextrose 5%-Lactated Ringers) 1,000 mls @ 80 mls/ hr IV ASDIRECTED [facility] Stop: 05/14/16 14:29 Last Admin: 05/13/16 18:20 Dose: 25 mls/hr Meropenem 500 mg/ Sodium (Chloride) 50 mls @ 100 mls/hr IV ONETIME ONE Stop: 05/13/16 18:29 Last Admin: 05/13/16 18:28 Dose: 100 mls/hr Sodium Chloride (Normal Saline) 70 mls @ 3 mls/sec IV ASDIRECTED [facility] Last Admin: 05/13/16 19:22 Dose: 3 mls/sec Aztreonam 1 gm/ Sodium (Chloride) 50 mls @ 100 mls/hr IV Q8HR [facility] Last Admin: 05/14/16 05:39 Dose: 100 mls/hr Sodium Chloride (Normal Saline) Confirm Administered Dose 10 mls @ as directed .ROUTE .STK-MED ONE Stop: 05/14/16 08:52 Sodium Chloride (Normal Saline) Confirm Administered Dose 10 mls @ as directed .ROUTE .STK-MED ONE Stop: 05/14/16 09:28 Lactated Ringer's (Ringers, Lactated) Confirm Administered Dose 1,000 mls @ as directed .ROUTE .K-MED ONE Stop: 05/14/16 09:34 Multivitamins/Minerals 10 ml/Chromium/Copper/Manganese/Seleni/Zn 1 ml/ Amino Ac/ Electrol/Dextrose/Calcium 1,011 mls @ 82 mls/hr IV .BY DURATION [facility] Stop: 05/16/16 10:59 Last Admin: 05/15/16 15:31 Dose: 82 mls/hr Amino Ac/Electrol/Dextrose/Calcium (Clinimix E 515) 1,000 mls @ 82 mls/hr IV .BY DURATION [facility] Stop: 05/16/16 10:59 Last Admin: 05/16/16 03:41 Dose: 82 mls/hr Acetaminophen 1,000 mg/ Premix 100 mls @ 400 mls/hr IV Q6H [facility] Stop: 05/15/16 10:14 Last Admin: 05/15/16 10:12 Dose: 400 mls/hr Potassium Phosphate 15 mmole/Lidocaine HCl 2 ml/ Sodium Chloride 157 mls @ 53 mls/hr IV Q3H [facility] Stop: 05/15/16 15:58 Last Admin: 05/15/16 13:04 Dose: 53 mls/hr Potassium Phosphate 15 mmole/ (Sodium Chloride) 155 mls @ 55 mls/hr IV Q3H [facility] Stop: 05/16/16 16:50 Last Admin: 05/16/16 17:27 Dose: 55 mls/hr Vancomycin HCl 1.3 gm/ Sodium (Chloride) 250 mls @ 167 mls/hr IV ONETIME ONE Stop: 05/17/16 14:29 Last Admin: 05/17/16 13:18 Dose: 167 mls/hr Sodium Chloride (Normal Saline) 70 mls @ 3 mls/sec IV ASDIRECTED [facility] Stop: 05/19/16 08:30 Ibuprofen (Motrin) 600 mg PO Q6H [facility] Last Admin: 05/13/16 05:24 Dose: Not Given Inulin (Fiber Choice) 4.5 gm PO BID [facility] Last Admin: 05/16/16 09:03 Dose: Not Given Iohexol (Omnipaque-300) 50 ml PO .ASDIRECTED [facility] Last Admin: 05/10/16 03:46 Dose: 50 ml Iopamidol (Isovue-300 (61%)) 100 ml IV . DIRECTED [facility] Last Admin: 05/13/16 19:22 Dose: 90 ml Iopamidol (Isovue-300 (61%)) 90 ml IV . DIRECTED PRN PRN Reason: RADIOLOGY EXAM Stop: 05/19/16 08:30 Last Admin: 05/19/16 07:44 Dose: 90 ml Ketamine HCl (Ketalar) 30 mg IV ASDIRECTED [facility] Stop: 05/09/16 11:00 Ketamine HCl (Ketalar) 30 mg IV .STK-MED ONE Stop: 05/09/16 09:46 Ketamine HCl (Ketalar) Confirm Administered Dose 500 mg .ROUTE .STK-MED ONE Stop: 05/14/16 08:51 Lactobacillus Rhamnosus (Culturelle) 2 cap PO BID [facility] Last Admin: 05/16/16 09:04 Dose: Not Given Lidocaine/Epinephrine (Xylocaine 1% With Epinephrine 1:100,000) Confirm Administered Dose 50 ml .ROUTE .STK-MED ONE Stop: 05/11/16 06:49 Last Admin: 05/11/16 09:09 Dose: 32 ml Lidocaine/Epinephrine (Xylocaine 1% With Epinephrine 1:100,000) Confirm Administered Dose 50 ml .ROUTE .STK-MED ONE Stop: 05/17/16 06:47 Last Admin: 05/17/16 08:07 Dose: 20 ml Meperidine HCl (Demerol) 50 mg IM ASDIRECTED PRN PRN Reason: PAIN Stop: 05/10/16 14:45 Meropenem (Merrem) Confirm Administered Dose 500 mg .ROUTE .STK-MED ONE Stop: 05/09/16 08:14 Last Admin: 05/09/16 10:24 Dose: 500 mg Meropenem (Merrem) Confirm Administered Dose 500 mg .ROUTE .STK-MED ONE Stop: 05/11/16 06:49 Last Admin: 05/11/16 09:10 Dose: 500 mg Meropenem (Merrem) Confirm Administered Dose 500 mg .ROUTE .STK-MED ONE Stop: 05/14/16 07:31 Last Admin: 05/14/16 10:19 Dose: 500 mg Meropenem (Merrem) Confirm Administered Dose 500 mg .ROUTE .STK-MED ONE Stop: 05/14/16 10:03 Last Admin: 05/14/16 10:19 Dose: 500 mg Meropenem (Merrem) Confirm Administered Dose 500 mg .ROUTE .STK-MED ONE Stop: 05/17/16 06:46 Last Admin: 05/17/16 08:12 Dose: 500 mg Metoclopramide HCl (Reglan) 10 mg IV Q6H [facility] Last Admin: 05/14/16 08:03 Dose: 10 mg Midazolam HCl (Versed 1 Mg/Ml) Confirm Administered Dose 2 mg .ROUTE .STK-MED ONE Stop: 05/14/16 07:44 Midazolam HCl (Versed 1 Mg/Ml) Confirm Administered Dose 2 mg .ROUTE .STK-MED ONE Stop: 05/17/16 07:22 Naloxone HCl (Narcan) 0.4 mg IV ASDIRECTED PRN PRN Reason: ITCHING Neostigmine Methylsulfate (Neostigmine) Confirm Administered Dose 5 mg .ROUTE .STK-MED ONE Stop: 05/09/16 08:37 Neostigmine Methylsulfate (Neostigmine) Confirm Administered Dose 5 mg .ROUTE .STK-MED ONE Stop: 05/14/16 07:44 Scopolamine Patch (Check) 1 each TOP DAILY [facility] Last Admin: 05/16/16 09:03 Dose: Not Given Check Fentanyl Patch (Daily) 1 each TOP DAILY [facility] Last Admin: 05/15/16 09:06 Dose: Not Given Ondansetron HCl (Zofran) Confirm Administered Dose 4 mg .ROUTE .ST-MED ONE Stop: 05/09/16 08:37 Ondansetron HCl (Zofran) Confirm Administered Dose 4 mg .ROUTE .STK-MED ONE Stop: 05/14/16 07:44 Pantoprazole Sodium (Protonix Iv) 40 mg IVPUSH Q24H [facility] Last Admin: 05/11/16 16:53 Dose: 40 mg Pantoprazole Sodium (Protonix) 40 mg PO Q24H [facility] Last Admin: 05/13/16 16:59 Dose: 40 mg Phenylephrine HCl (Yan-Synephrine) Confirm Administered Dose 10 mg .ROUTE .STK- MED ONE Stop: 05/14/16 09:27 Propofol (Diprivan 20 Ml) Confirm Administered Dose 200 mg .ROUTE .STK-MED ONE Stop: 05/09/16 08:37 Propofol (Diprivan 20 Ml) Confirm Administered Dose 200 mg .ROUTE .STK-MED ONE Stop: 05/11/16 07:00 Propofol (Diprivan 20 Ml) Confirm Administered Dose 200 mg .ROUTE .STK-MED ONE Stop: 05/14/16 07:44 Propofol (Diprivan 20 Ml) Confirm Administered Dose 200 mg .ROUTE .STK-MED ONE Stop: 05/17/16 07:22 Rocuronium [place] (Zemuron) Confirm Administered Dose 100 mg .ROUTE .STK-MED ONE Stop: 05/09/16 08:37 Rocuronium [place] (Zemuron) Confirm Administered Dose 50 mg .ROUTE .STK-MED ONE Stop: 05/14/16 07:44 Scopolamine (Transderm-Scop) 1.5 mg TOP Q72H [facility] Stop: 05/12/16 06:00 Last Admin: 05/09/16 07:53 Dose: 1.5 mg Scopolamine (Transderm-Scop) Confirm Administered Dose 1.5 mg .ROUTE .STK-MED ONE Stop: 05/09/16 08:37 Scopolamine (Transderm-Scop) 1.5 mg TOP ASDIRECTED [facility] Stop: 05/12/16 16:00 Scopolamine (Transderm-Scop) 1.5 mg TOP Q72H [facility] Last Admin: 05/12/16 09:17 Dose: 1.5 mg Sodium Chloride (Saline Flush) 10 ml FLUSH ONETIME ONE Stop: 05/13/16 18:10 Last Admin: 05/13/16 19:22 Dose: 10 ml Succinylcholine Chloride (Succinylcholine In Ns Pf) Confirm Administered Dose 200 mg .ROUTE .STK-MED ONE Stop: 05/09/16 08:37 Succinylcholine Chloride (Succinylcholine In Ns Pf) Confirm Administered Dose 200 mg .ROUTE .STK-MED ONE Stop: 05/14/16 07:44 Vancomycin HCl (Vancomycin) 1 gm IV .PHARMACY TO DOSE SARHAY - Exam Quality Assessment: supplemental oxygen, urine catheter, DVT prophylaxis General: alert, cooperative, moderate distress Lungs: Normal respiratory effort. No: Crackles, Rales, Rhonchi, Rub, Stridor, Wheezing Cardiovascular: regular rate, regular rhythm, no murmurs Abdomen: soft, no distension, tenderness, abnormal bowel sounds. No: rigidity, rebound, guarding Extremities: no edema Skin: warm, dry, intact Consult PN Assessment/Plan Procedures: Procedures ASSAY OF LACTIC ACID (03/04/16) ASSAY OF MAGNESIUM (04/07/16) ASSAY OF PHOSPHORUS (04/07/16) ASSAY THYROID STIM HORMONE (10/08/15) BLOOD TYPING SEROLOGIC ABO (04/14/15) BLOOD TYPING SEROLOGIC RH(D) (04/14/15) C-REACTIVE PROTEIN (04/07/16) COMPLETE CBC AUTOMATED (04/07/16) COMPLETE CBC W/AUTO DIFF WBC (04/07/16) COMPREHEN METABOLIC PANEL (04/07/16) CT ABD & PELV W/CONTRAST (03/04/16) CULTURE SCREEN ONLY (11/10/15) ELECTROCARDIOGRAM TRACING (04/14/15) EMERGENCY DEPT VISIT (04/07/16) HYDRATE IV INFUSION ADD-ON (04/07/16) MEASURE BLOOD OXYGEN LEVEL (01/01/16) METABOLIC PANEL TOTAL CA (03/04/16) PT EVALUATION (11/10/15) RBC ANTIBODY SCREEN (04/14/15) ROUTINE VENIPUNCTURE (04/07/16) SPECIAL STAINS GROUP 2 (04/14/15) THER/PROPH/DIAG INJ IV PUSH (04/07/16) THER/PROPH/DIAG IV INF ADDON (03/04/16) THER/PROPH/DIAG IV INF INIT (03/04/16) THERAPEUTIC ACTIVITIES (11/10/15) TISSUE EXAM BY PATHOLOGIST (01/01/16) TISSUE EXAM BY PATHOLOGIST (01/01/16) TISSUE EXAM BY PATHOLOGIST (04/14/15) TISSUE EXAM BY PATHOLOGIST (04/14/15) TX/PRO/DX INJ NEW DRUG ADDON (04/07/16) URINALYSIS AUTO W/SCOPE (04/07/16) X-RAY EXAM OF ABDOMEN (04/07/16) X-RAY EXAM SERIES ABDOMEN (04/07/16) X-RAY UPPER GI DELAY W/O KUB (03/04/16) X-RAY UPPER GI&SMALL INTEST (04/07/16) Problem List Initiated/Reviewed/Updated: Yes Plan: Assessment and Plan - Abdominal abscess with peritonitis secondary to JJ leak - status post exploratory laparotomy 3/4. Persistent low-grade temperature elevations and increased in white blood cell count over the past few days. -CT scan of the abdomen and pelvis, formal report pending -Remains on IV Zosyn and Azactam -Followup cultures -additional postop cares per surgical team Recurrent fever-chest x-ray shows evidence of infiltrate which would need to be considered a hospital-acquired pneumonia -Repeat blood cultures have been obtained -Sputum cultures -Expand IV antibiotic coverage including vancomycin and levofloxacin, pending culture results Elevated bilirubin with mild elevation of AST and ALT - history of similar elevations following surgery though not bilirubin to this extent. Levels have remained normal so far. -Labs in the morning Delirium - resolved
--- NOTE | 2016-05-19 10:04 | CT ---
Abdomen pelvis CT. History: Postoperative follow-up. Patient with history of recent colectomy with ileorectal anastomos is. 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 Follow-up free air and free fluid within the a bdomen and pelvis as noted on recent CT. Technique: Prior to the study 50 cc of water-soluble contrast was administered via NG tube. IV contr ast was administered. Axial images were obtained from the lung bases extending through the abdomen a nd pelvis. Coronal images were reconstructed. Total DLP: 826. Comparison: 13 May 2016. Findings: Limited evaluation of the lung bases demonstrates interval increase in size of bilateral pleural eff usions. There is a large left pleural effusion. There is a moderate effusion on the right. There is volume loss of the posterior lower lobes. There has been development of patchy infiltrates involving the right middle lobe as well as lingular portion of the left upper lobe. The patient has had a prior cholecystectomy. There is interval decrease dilatation of the biliary tr ee. Underlying the left hemidiaphragm is a collection of extraluminal air and fluid. The fluid collectio n appears encapsulated at this time. There is a thin enhancing wall. The finding is concerning for a subphrenic abscess. The fluid collection measures 11.2 x 4.8 x 10.4 cm. There is a surgical drain l ocated just inferior to the fluid collection. There are 2 surgical drains positioned within the pelv is. Elsewhere throughout the abdomen and pelvis there has been interval decrease in the amount of fr ee air and free fluid. The ileal rectal anastomosis is unchanged in appearance. There is no large or small bowel distention . The administered contrast through the nasogastric tube has passed through the [place] limb. There is no extravasation. The kidneys demonstrate symmetric excretion of contrast. Impression: 1. Organizing left upper quadrant fluid collection with a thin enhancing wall. The finding is concer thalia for a left subphrenic abscess. Elsewhere throughout the abdomen there has been interval decreas e in the amount of extraluminal air and free fluid. 2. Increasing bilateral pleural effusions, left greater than right. 3. Interval decrease of dilute ductal dilatation. 4. Stable appearance of the ileal rectal anastomosis. 5. Interval development of pulmonary infiltrates.
[2016-05-19] MEDS: Levofloxacin/Dextrose 5%-Water 750 MG in Premix Bag 1 BAG IV SCH (11:16)
[2016-05-19] MEDS ORDERED: Meropenem 500 MG SDV ONE ×2 (12:09→13:30)
[2016-05-19] MEDS ORDERED: Midazolam 1 MG/ML 2 ML SDV ONE (12:12)
[2016-05-19] MEDS ORDERED: fentaNYL 250 MCG/5 ML SDV ONE (12:12)
[2016-05-19] MEDS ORDERED: Succinylcholine/Normal Saline 200 MG/10 ML Syringe ONE (12:13)
[2016-05-19] MEDS ORDERED: Rocuronium 50 MG/5 ML Vial ONE (12:13)
[2016-05-19] MEDS ORDERED: Neostigmine Methylsulfate 1 MG/ML 5 ML Syringe ONE (12:13)
[2016-05-19] MEDS ORDERED: Ondansetron 4 MG/2 ML SDV ONE (12:13)
[2016-05-19] MEDS ORDERED: Dexamethasone 4 MG/ML SDV ONE (12:13)
[2016-05-19] MEDS ORDERED: Propofol 200 MG/20 ML SDV ONE (12:13)
[2016-05-19] MEDS ORDERED: Lactated Ringers 1,000 ML ONE (13:22)
[2016-05-19] MEDS ORDERED: Sodium Chloride 0.9% 10 ML ONE (13:30)
[2016-05-19] MEDS ORDERED: Bupivacaine 0.5%/EPINEPHrine 1:200,000 50 ML MDV ONE (14:05)
[2016-05-19] MEDS ORDERED: Bupivacaine 0.5% 50 ML MDV ONE (14:05)
[2016-05-19] MEDS ORDERED: Edrophonium Chloride 150 MG/15 ML MDV ONE (14:22)
[2016-05-19] MEDS: Pantoprazole 40 MG Vial IV SCH (16:11)
[2016-05-19] MEDS: HYDROmorphone/Normal Saline 15 MG/30 ML PCA IV PRN (23:46)
[2016-05-20] MEDS: 1: AA 5%/Calcium/D15W/Lytes 1,000 ML with MVI, Adult with Vitamin K 10 ML, Chromium/Copp IV SCH ×6 (00:02→13:01)
[2016-05-20] MEDS: Lactated Ringers 1,000 ML IV SCH (03:16)
[2016-05-20] MEDS: Meropenem 500 MG in Sodium Chloride 0.9% 50 ML IV SCH ×4 (03:57→21:42)
[2016-05-20] MEDS: Aztreonam/Dextrose-Water 1 GM in Premix Bag 1 BAG IV SCH ×3 (05:30→21:42)
[2016-05-20] MEDS: Fluconazole/Normal Saline 400 MG in Premix Bag 1 BAG IV SCH (08:43)
--- NOTE | 2016-05-20 09:23 | PCM.CONSN ---
- General Info Date of Service: 05/20/16 Functional Status: Reports: pain controlled - Review of Systems General: Reports: weakness. Denies: fever, chills Pulmonary: Reports: no symptoms Cardiovascular: Reports: no symptoms Gastrointestinal: Reports: Abdominal pain. Denies: Nausea, Vomiting Systems Review Comment:: This patient had been experiencing low-grade temperature elevations for a few days as well as slow increase in white blood cell count. CT scan was obtained yesterday and did show evidence of a new abscess in the area of the spleen. She was taken back to surgery for further drainage and debridement. She has remained fairly stable since then, fever has resolved, but white blood cell count is significantly increased. Current pain control is adequate and vital signs have been stable. - Patient Data Vitals - most recent: Last Vital Signs Temp 96.1 F 05/20/16 03:59 Pulse 95 05/19/16 17:00 Resp 12 05/20/16 05:50 BP 102/58 L 05/20/16 05:50 Pulse Ox 94 L 05/20/16 05:50 Weight - most recent: 133 lb 15.987 oz I&O - last 24 hours: Intake & Output 05/19/16 05/20/16 05/20/16 22:59 06:59 14:59 Intake Total 2363 2292 Output Total 2130 1485 Balance 233 807 Lab Results last 24 hrs: Laboratory Results - last 24 hr 05/17/16 05/19/16 05/20/16 Range/Units 04:00 12:30 04:00 WBC 31.8 H* (4.5-11.0) K/uL RBC 3.20 L (3.30-5.50) M/uL Hgb 9.0 L (12.0-15.0) g/dL Hct 26.1 L (36.0-48.0) % MCV 82 (80-98) fL MCH 28 (27-31) pg MCHC 35 (32-36) % Plt Count 329 (150-400) K/uL Sodium (140-148) mmol/L Potassium (3.6-5.2) mmol/L Chloride (100-108) mmol/L Carbon Dioxide (21-32) mmol/L Anion Gap (5.0-14.0) mmol/L BUN (7-18) mg/dL Creatinine (0.6-1.0) mg/dL Est Cr Clr Drug Dosing mL/min Estimated GFR (MDRD) (>60) Glucose (74-106) mg/dL Calcium (8.5-10.1) mg/dL Phosphorus (2.5-4.9) mg/dL Magnesium (1.8-2.4) mg/dL Total Bilirubin (0.2-1.0) mg/dL AST (15-37) U/L ALT (12-78) U/L Alkaline Phosphatase (46-116) U/L Total Protein (6.4-8.2) g/dL Albumin (3.4-5.0) g/dL Globulin (2.3-3.5) g/dL Albumin/Globulin Ratio (1.2-2.2) Vancomycin Trough 5.4 L (10.0-20.0) ug/mL Blood Type A POSITIVE Gel Antibody Screen Negative Crossmatch See Detail 05/20/16 Range/Units 04:00 WBC (4.5-11.0) K/uL RBC (3.30-5.50) M/uL Hgb (12.0-15.0) g/dL Hct (36.0-48.0) % MCV (80-98) fL MCH (27-31) pg MCHC (32-36) % Plt Count (150-400) K/uL Sodium 139 L (140-148) mmol/L Potassium 4.3 (3.6-5.2) mmol/L Chloride 107 (100-108) mmol/L Carbon Dioxide 26 (21-32) mmol/L Anion Gap 10.3 (5.0-14.0) mmol/L BUN 18 (7-18) mg/dL Creatinine 0.4 L (0.6-1.0) mg/dL Est Cr Clr Drug Dosing 148.89 mL/min Estimated GFR (MDRD) > 60 (>60) Glucose 149 H (74-106) mg/dL Calcium 7.7 L (8.5-10.1) mg/dL Phosphorus 3.4 (2.5-4.9) mg/dL Magnesium 2.0 (1.8-2.4) mg/dL Total Bilirubin 0.6 (0.2-1.0) mg/dL AST 15 (15-37) U/L ALT 15 (12-78) U/L Alkaline Phosphatase 35 L (46-116) U/L Total Protein 4.5 L (6.4-8.2) g/dL Albumin 1.8 L (3.4-5.0) g/dL Globulin 2.7 (2.3-3.5) g/dL Albumin/Globulin Ratio 0.7 L (1.2-2.2) Vancomycin Trough (10.0-20.0) ug/mL Blood Type Gel Antibody Screen Crossmatch Dereje Results last 24 hrs: Microbiology 05/18/16 06:55 Gram Stain - Final Valentino Young Drainage Wound Culture - Preliminary 05/19/16 14:17 Gram Stain - Final Abdomen - Abscess 05/19/16 13:43 Gram Stain - Final Spleen Med Orders - Current: Current Medications Acetaminophen (Tylenol) 650 mg RECTAL Q4H PRN PRN Reason: Fever Last Admin: 05/18/16 05:53 Dose: 650 mg Bacitracin (Bacitracin Oint 1 Gm) 1 dose TOP BID PRN PRN Reason: burn Last Admin: 05/12/16 20:31 Dose: 2 dose Dimethicone/Zinc Oxide (Rash Relief-Zinc Oxide [place]) 1 gm TOP ASDIRECTED PRN PRN Reason: Other Last Admin: 05/12/16 20:30 Dose: 1 bot Diphenhydramine HCl (Benadryl) 25 - 50 mg IVPUSH Q4H PRN PRN Reason: ITCHING Heparin Sodium (Porcine) (Heparin Lock Flush 100 Units/Ml Syringe) 500 units IVPUSH ASDIRECTED 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 Hydromorphone HCl (Dilaudid Toll [employer] Operator 15 Mg In Ns 30 Ml) 0 mg IV ASDIRECTED PRN; Protocol PRN Reason: STOCK MOVER PAIN CONTROL Last Admin: 05/19/16 23:46 Dose: 15 mg Hydroxyzine HCl (Vistaril) 100 mg IM Q4H PRN PRN Reason: PAIN NOT CONTROLLED BY STOCK MOVER Last Admin: 05/17/16 04:20 Dose: 100 mg Meropenem 500 mg/ Sodium (Chloride) 50 mls @ 100 mls/hr IV Q6H [facility] Last Admin: 05/20/16 03:57 Dose: 100 mls/hr Aztreonam/Dextrose 1 gm/ (Premix) 50 mls @ 100 mls/hr IV Q8H [facility] Last Admin: 05/20/16 05:30 Dose: 100 mls/hr Albumin Human (Flexbumin 25%) 50 mls @ 50 mls/hr IV Q24H [facility] Last Admin: 05/19/16 08:44 Dose: 50 mls/hr Albumin Human (Flexbumin 25%) 50 mls @ 50 mls/hr IV Q24H [facility] Last Admin: 05/19/16 09:23 Dose: 50 mls/hr Albumin Human (Flexbumin 25%) 50 mls @ 50 mls/hr IV Q24H [facility] Last Admin: 05/19/16 10:23 Dose: 50 mls/hr Albumin Human (Flexbumin 25%) 50 mls @ 50 mls/hr IV Q24H [facility] Last Admin: 05/19/16 11:19 Dose: 50 mls/hr Multivitamins/Minerals 10 ml/Chromium/Copper/Manganese/Seleni/Zn 1 ml/ Amino Ac/ Electrol/Dextrose/Calcium 1,011 mls @ 82 mls/hr IV .BY DURATION [facility] Last Admin: 05/19/16 12:40 Dose: 82 mls/hr Amino Ac/Electrol/Dextrose/Calcium (Clinimix E 5/15) 1,000 mls @ 82 mls/hr IV .BY DURATION [facility] Last Admin: 05/20/16 00:02 Dose: 82 mls/hr Levofloxacin/Dextrose 750 mg/ (Premix) 150 mls @ 100 mls/hr IV Q24H [facility] Last Admin: 05/19/16 11:16 Dose: 100 mls/hr Vancomycin HCl 1 gm/ Sodium (Chloride) 250 mls @ 167 mls/hr IV Q8H [facility] Last Admin: 05/20/16 08:48 Dose: 167 mls/hr Lactated Ringer's (Ringers, Lactated) 1,000 mls @ 0 mls/hr IV ASDIRECTED [facility] PRN Reason: KVO Fluconazole/Sodium Chloride (400 mg/ Premix) 200 mls @ 100 mls/hr IV Q24H [facility] Last Admin: 05/20/16 08:43 Dose: 100 mls/hr Naloxone HCl (Narcan) 0.1 mg IV ASDIRECTED PRN PRN Reason: decreased respiratory rate Ondansetron HCl (Zofran) 4 mg IVPUSH Q4H PRN PRN Reason: Nausea/Vomiting Last Admin: 05/16/16 09:55 Dose: 4 mg Pantoprazole Sodium (Protonix Iv) 40 mg IV Q24H [facility] Last Admin: 05/19/16 16:11 Dose: 40 mg Discontinued Medications Acetaminophen (Tylenol) 650 mg PO Q6H [facility] Last Admin: 05/16/16 09:03 Dose: Not Given Albuterol/Ipratropium (Duoneb 3.0-0.5 Mg/3 Ml) 3 ml NEB ONETIME STA Stop: 05/13/16 19:09 Last Admin: 05/13/16 19:21 Dose: 3 ml Alvimopan (Entereg) 12 mg PO ONETIME ONE Stop: 05/09/16 08:31 Last Admin: 05/09/16 08:30 Dose: 12 mg Alvimopan (Entereg) 12 mg PO Q12H [facility] Stop: 05/16/16 09:01 Last Admin: 05/10/16 09:04 Dose: 12 mg Bisacodyl (Dulcolax) 10 mg PO BID [facility] Last Admin: 05/11/16 09:52 Dose: Not Given Bupivacaine HCl (Marcaine 0.5%) Confirm Administered Dose 50 ml .ROUTE .STK-MED ONE Stop: 05/11/16 06:49 Last Admin: 05/11/16 09:09 Dose: 32 ml Bupivacaine HCl (Marcaine 0.5%) Confirm Administered Dose 50 ml .ROUTE .STK-MED ONE Stop: 05/17/16 06:47 Last Admin: 05/17/16 08:07 Dose: 20 ml Bupivacaine HCl (Marcaine 0.5%) Confirm Administered Dose 50 ml .ROUTE .STK-MED ONE Stop: 05/19/16 14:06 Bupivacaine HCl/Epinephrine Bitart (Marcaine 0.5%/Epinephrine 1:200,000) Confirm Administered Dose 50 ml .ROUTE .STK-MED ONE Stop: 05/19/16 14:06 Last Admin: 05/19/16 14:10 Dose: 25 ml Cefoxitin Sodium (Mefoxin) Confirm Administered Dose 2 gm .ROUTE .STK-MED ONE Stop: 05/09/16 06:55 Neomycin/Polymyxin 1 ml/ (Sodium Chloride 750 ml) 0 ml .XX ONETIME ONE Stop: 05/09/16 09:16 Last Admin: 05/09/16 13:25 Dose: Not Given Cyanocobalamin (Vitamin B12) 1,000 mcg IM ONETIME ONE Stop: 05/11/16 09:01 Last Admin: 05/11/16 09:53 Dose: 1,000 mcg Cyclobenzaprine HCl (Flexeril) 10 mg PO Q6H PRN PRN Reason: Muscle Spasm Last Admin: 05/13/16 06:22 Dose: 10 mg Dexamethasone (Dexamethasone) Confirm Administered Dose 4 mg .ROUTE .STK-MED ONE Stop: 05/09/16 08:37 Dexamethasone (Dexamethasone) Confirm Administered Dose 4 mg .ROUTE .STK-MED ONE Stop: 05/14/16 07:44 Dexamethasone (Dexamethasone) Confirm Administered Dose 4 mg .ROUTE .STK-MED ONE Stop: 05/19/16 12:14 Diatrizoate Meglum/Diatrizoate Sod (Gastrografin 37%) 30 ml PO . DIRECTED [facility] Stop: 05/13/16 19:46 Last Admin: 05/13/16 19:33 Dose: 30 mg Diphenhydramine HCl (Benadryl) 25 mg IVPUSH Q6H PRN PRN Reason: ITCHING Diphenoxylate HCl/Atropine (Lomotil 0.025-2.5 Mg) 1 tab PO ONETIME ONE Stop: 05/12/16 10:36 Last Admin: 05/12/16 10:55 Dose: 1 tab Diphenoxylate HCl/Atropine (Lomotil 0.025-2.5 Mg) 1 tab PO Q6H PRN PRN Reason: Diarrhea Edrophonium Chloride (Enlon) Confirm Administered Dose 150 mg .ROUTE .STK-MED ONE Stop: 05/14/16 10:59 Edrophonium Chloride (Enlon) Confirm Administered Dose 150 mg .ROUTE .STK-MED ONE Stop: 05/19/16 14:23 Fentanyl (Sublimaze) Confirm Administered Dose 500 mcg .ROUTE .STK-MED ONE Stop: 05/09/16 08:37 Fentanyl (Sublimaze) Confirm Administered Dose 100 mcg .ROUTE .STK-MED ONE Stop: 05/09/16 08:39 Fentanyl (Duragesic) 12 mcg TRDERM Q72H [facility] Last Admin: 05/13/16 13:15 Dose: Not Given Fentanyl (Sublimaze) Confirm Administered Dose 250 mcg .ROUTE .STK-MED ONE Stop: 05/14/16 07:44 Fentanyl (Duragesic) 25 mcg TRDERM Q72H [facility] Last Admin: 05/14/16 16:58 Dose: Not Given Fentanyl (Sublimaze) Confirm Administered Dose 100 mcg .ROUTE .STK-MED ONE Stop: 05/17/16 07:22 Fentanyl (Sublimaze) Confirm Administered Dose 250 mcg .ROUTE .STK-MED ONE Stop: 05/19/16 12:13 Furosemide (Lasix) 20 mg IVPUSH ONETIME ONE Stop: 05/13/16 18:01 Last Admin: 05/13/16 18:21 Dose: 20 mg Gabapentin (Neurontin) 300 mg PO ONETIME ONE Stop: 05/09/16 08:16 Last Admin: 05/09/16 07:53 Dose: 300 mg Gabapentin (Neurontin) 300 mg PO TID [facility] Last Admin: 05/12/16 21:54 Dose: 300 mg Glycopyrrolate () Confirm Administered Dose 1 mg .ROUTE .STK-MED ONE Stop: 05/09/16 08:37 Glycopyrrolate () Confirm Administered Dose 1 mg .ROUTE .STK-MED ONE Stop: 05/14/16 07:44 Glycopyrrolate () Confirm Administered Dose 1 mg .ROUTE .STK-MED ONE Stop: 05/19/16 12:14 Heparin Sodium (Porcine) (Heparin Sodium) 5,000 units SUBCUT Q12H [facility] Stop: 05/10/16 20:00 Last Admin: 05/10/16 06:23 Dose: 5,000 units Heparin Sodium (Porcine) (Heparin Sodium) 5,000 units SUBCUT Q12H [facility] Heparin Sodium (Porcine) (Heparin Sodium) 5,000 units SUBCUT ONETIME ONE Stop: 05/10/16 17:01 Last Admin: 05/10/16 16:45 Dose: 5,000 units Heparin Sodium (Porcine) (Heparin Lock Flush 100 Units/Ml Syringe) 500 units FLUSH .STK-MED ONE Stop: 05/14/16 10:20 Last Admin: 05/14/16 10:19 Dose: 500 units Heparin Sodium (Porcine) (Heparin Lock Flush 100 Units/Ml Syringe) Confirm Administered Dose 500 units .ROUTE .STK-MED ONE Stop: 05/15/16 17:28 Last Admin: 05/15/16 19:22 Dose: Not Given Heparin Sodium (Porcine) (Heparin Lock Flush 100 Units/Ml Syringe) Confirm Administered Dose 500 units .ROUTE .STK-MED ONE Stop: 05/19/16 21:35 Last Admin: 05/19/16 21:50 Dose: 500 units Hydromorphone HCl (Dilaudid) 2 - 4 mg PO Q4H PRN PRN Reason: PAIN Last Admin: 05/14/16 02:12 Dose: 4 mg Hydroxyzine HCl (Vistaril) 75 - 100 mg IM Q4H PRN PRN Reason: PAIN NOT CONTROLLED BY STOCK MOVER Last Admin: 05/13/16 02:48 Dose: 100 mg Dextrose/Lactated Ringer's (Dextrose 5%-Lactated Ringers) 1,000 mls @ 100 mls/ hr IV ASDIRECTED [facility] Last Admin: 05/09/16 07:55 Dose: 100 mls/hr Cefoxitin Sodium 2 gm/ Sodium (Chloride) 50 mls @ 100 mls/hr IV ONETIME ONE Stop: 05/09/16 09:44 Last Admin: 05/09/16 09:08 Dose: 100 mls/hr Fentanyl 2,500 mcg/ Sodium (Chloride) 250 mls @ 0 mls/hr EPIDUR TITRATE [facility]; Titrate PRN Reason: Protocol Last Admin: 05/10/16 09:12 Dose: 10 ml/hr, 10 mls/hr Ketamine HCl 100 mg/ Sodium (Chloride) 100 mls @ 18 mls/hr IV ASDIRECTED [facility] Stop: 05/09/16 13:00 Lactated Ringer's (Ringers, Lactated) Confirm Administered Dose 1,000 mls @ as directed .ROUTE .ST-MED ONE Stop: 05/09/16 08:37 Sodium Chloride (Normal Saline) Confirm Administered Dose 10 mls @ as directed .ROUTE .ST-MED ONE Stop: 05/09/16 08:39 Lidocaine HCl (Xylocaine-Mpf 1%) Confirm Administered Dose 2 mls @ as directed .ROUTE .ST-MED ONE Stop: 05/09/16 09:24 Lactated Ringer's (Ringers, Lactated) Confirm Administered Dose 1,000 mls @ as directed .ROUTE .[facility]-MED ONE Stop: 05/09/16 11:10 Lactated Ringer's (Ringers, Lactated) 500 mls @ 500 mls/hr IV .BOLUS ONE Stop: 05/09/16 14:59 Last Admin: 05/09/16 14:03 Dose: 500 mls/hr Dextrose/Lactated Ringer's (Dextrose 5%-Lactated Ringers) 1,000 mls @ 200 mls/ hr IV ASDIRECTED [facility] Stop: 05/10/16 17:59 Last Admin: 05/10/16 15:05 Dose: 200 mls/hr Multivitamins/Minerals 10 ml/Thiamine HCl 200 mg/ Chromium/Copper/Manganese/ Seleni/Zn 1 ml/ Dextrose/Lactated Ringer's 1,013 mls @ 100 mls/hr IV DAILY@ 1600 [facility] Last Admin: 05/14/16 16:33 Dose: Not Given Cefoxitin Sodium 2 gm/ Sodium (Chloride) 50 mls @ 100 mls/hr IV Q6H [facility] Last Admin: 05/12/16 03:39 Dose: 100 mls/hr Acetaminophen 1,000 mg/ Premix 100 mls @ 400 mls/hr IV Q6H [facility] Stop: 05/10/16 04:14 Last Admin: 05/10/16 04:19 Dose: 400 mls/hr Ketamine HCl 100 mg/ Sodium (Chloride) 101 mls @ as directed IV .STK-MED ONE Stop: 05/09/16 09:46 Dextrose/Lactated Ringer's (Dextrose 5%-Lactated Ringers) 1,000 mls @ 100 mls/ hr IV ASDIRECTED [facility] Last Admin: 05/13/16 02:59 Dose: 100 mls/hr Magnesium Sulfate 2 gm/ Sodium (Chloride) 54 mls @ 27 mls/hr IV ONETIME ONE Stop: 05/13/16 11:59 Last Admin: 05/13/16 10:01 Dose: 27 mls/hr Magnesium Sulfate 2 gm/ Premix 50 mls @ 25 mls/hr IV Q6H [facility] Stop: 05/15/16 05:59 Last Admin: 05/16/16 09:03 Dose: Not Given Potassium Phosphate 20 mmole/ (Sodium Chloride) 256.6667 mls @ 85 mls/hr IV Q3H [facility] Stop: 05/13/16 18:59 Last Admin: 05/13/16 19:49 Dose: 85 mls/hr Dextrose/Lactated Ringer's (Dextrose 5%-Lactated Ringers) 1,000 mls @ 80 mls/ hr IV ASDIRECTED [facility] Stop: 05/14/16 14:29 Last Admin: 05/13/16 18:20 Dose: 25 mls/hr Meropenem 500 mg/ Sodium (Chloride) 50 mls @ 100 mls/hr IV ONETIME ONE Stop: 05/13/16 18:29 Last Admin: 05/13/16 18:28 Dose: 100 mls/hr Sodium Chloride (Normal Saline) 70 mls @ 3 mls/sec IV ASDIRECTED [facility] Last Admin: 05/13/16 19:22 Dose: 3 mls/sec Aztreonam 1 gm/ Sodium (Chloride) 50 mls @ 100 mls/hr IV Q8HR [facility] Last Admin: 05/14/16 05:39 Dose: 100 mls/hr Sodium Chloride (Normal Saline) Confirm Administered Dose 10 mls @ as directed .ROUTE .STK-MED ONE Stop: 05/14/16 08:52 Sodium Chloride (Normal Saline) Confirm Administered Dose 10 mls @ as directed .ROUTE .STK-MED ONE Stop: 05/14/16 09:28 Lactated Ringer's (Ringers, Lactated) Confirm Administered Dose 1,000 mls @ as directed .ROUTE .STK-MED ONE Stop: 05/14/16 09:34 Multivitamins/Minerals 10 ml/Chromium/Copper/Manganese/Seleni/Zn 1 ml/ Amino Ac/ Electrol/Dextrose/Calcium 1,011 mls @ 82 mls/hr IV .BY DURATION [facility] Stop: 05/16/16 10:59 Last Admin: 05/15/16 15:31 Dose: 82 mls/hr Amino Ac/Electrol/Dextrose/Calcium (Clinimix E 15) 1,000 mls @ 82 mls/hr IV .BY DURATION [facility] Stop: 05/16/16 10:59 Last Admin: 05/16/16 03:41 Dose: 82 mls/hr Lactated Ringer's (Ringers, Lactated) 1,000 mls @ 100 mls/hr IV ASDIRECTED [facility] Last Admin: 05/20/16 03:16 Dose: 100 mls/hr Acetaminophen 1,000 mg/ Premix 100 mls @ 400 mls/hr IV Q6H [facility] Stop: 05/15/16 10:14 Last Admin: 05/15/16 10:12 Dose: 400 mls/hr Potassium Phosphate 15 mmole/Lidocaine HCl 2 ml/ Sodium Chloride 157 mls @ 53 mls/hr IV Q3H [facility] Stop: 05/15/16 15:58 Last Admin: 05/15/16 13:04 Dose: 53 mls/hr Potassium Phosphate 15 mmole/ (Sodium Chloride) 155 mls @ 55 mls/hr IV Q3H [facility] Stop: 05/16/16 16:50 Last Admin: 05/16/16 17:27 Dose: 55 mls/hr Vancomycin HCl 1.3 gm/ Sodium (Chloride) 250 mls @ 167 mls/hr IV ONETIME ONE Stop: 05/17/16 14:29 Last Admin: 05/17/16 13:18 Dose: 167 mls/hr Vancomycin HCl 1 gm/ Sodium (Chloride) 250 mls @ 167 mls/hr IV Q12H [facility] Last Admin: 05/19/16 00:30 Dose: 167 mls/hr Sodium Chloride (Normal Saline) 70 mls @ 3 mls/sec IV ASDIRECTED [facility] Stop: 05/19/16 08:30 Lactated Ringer's (Ringers, Lactated) Confirm Administered Dose 1,000 mls @ as directed .ROUTE .STK-MED [facility] Stop: 05/19/16 13:23 Sodium Chloride (Normal Saline) Confirm Administered Dose 10 mls @ as directed .ROUTE .STK-MED ONE Stop: 05/19/16 13:31 Ibuprofen (Motrin) 600 mg PO Q6H [facility] Last Admin: 05/13/16 05:24 Dose: Not Given Inulin (Fiber Choice) 4.5 gm PO BID [facility] Last Admin: 05/16/16 09:03 Dose: Not Given Iohexol (Omnipaque-300) 50 ml PO .ASDIRECTED [facility] Last Admin: 05/10/16 03:46 Dose: 50 ml Iohexol (Omnipaque-300) 10 ml PO . DIRECTED PRN PRN Reason: RADIOLOGY EXAM Stop: 05/20/16 08:30 Last Admin: 05/19/16 07:44 Dose: 10 ml Iopamidol (Isovue-300 (61%)) 100 ml IV . DIRECTED [facility] Last Admin: 05/13/16 19:22 Dose: 90 ml Iopamidol (Isovue-300 (61%)) 90 ml IV . DIRECTED PRN PRN Reason: RADIOLOGY EXAM Stop: 05/19/16 08:30 Last Admin: 05/19/16 07:44 Dose: 90 ml Ketamine HCl (Ketalar) 30 mg IV ASDIRECTED [facility] Stop: 05/09/16 11:00 Ketamine HCl (Ketalar) 30 mg IV .STK-MED ONE Stop: 05/09/16 09:46 Ketamine HCl (Ketalar) Confirm Administered Dose 500 mg .ROUTE .STK-MED ONE Stop: 05/14/16 08:51 Lactobacillus Rhamnosus (Culturelle) 2 cap PO BID [facility] Last Admin: 05/16/16 09:04 Dose: Not Given Lidocaine/Epinephrine (Xylocaine 1% With Epinephrine 1:100,000) Confirm Administered Dose 50 ml .ROUTE .STK-MED ONE Stop: 05/11/16 06:49 Last Admin: 05/11/16 09:09 Dose: 32 ml Lidocaine/Epinephrine (Xylocaine 1% With Epinephrine 1:100,000) Confirm Administered Dose 50 ml .ROUTE .STK-MED ONE Stop: 05/17/16 06:47 Last Admin: 05/17/16 08:07 Dose: 20 ml Meperidine HCl (Demerol) 50 mg IM ASDIRECTED PRN PRN Reason: PAIN Stop: 05/10/16 14:45 Meropenem (Merrem) Confirm Administered Dose 500 mg .ROUTE .STK-MED ONE Stop: 05/09/16 08:14 Last Admin: 05/09/16 10:24 Dose: 500 mg Meropenem (Merrem) Confirm Administered Dose 500 mg .ROUTE .STK-MED ONE Stop: 05/11/16 06:49 Last Admin: 05/11/16 09:10 Dose: 500 mg Meropenem (Merrem) Confirm Administered Dose 500 mg .ROUTE .STK-MED ONE Stop: 05/14/16 07:31 Last Admin: 05/14/16 10:19 Dose: 500 mg Meropenem (Merrem) Confirm Administered Dose 500 mg .ROUTE .STK-MED ONE Stop: 05/14/16 10:03 Last Admin: 05/14/16 10:19 Dose: 500 mg Meropenem (Merrem) Confirm Administered Dose 500 mg .ROUTE .STK-MED ONE Stop: 05/17/16 06:46 Last Admin: 05/17/16 08:12 Dose: 500 mg Meropenem (Merrem) Confirm Administered Dose 500 mg .ROUTE .STK-MED ONE Stop: 05/19/16 12:10 Last Admin: 05/19/16 13:30 Dose: 500 mg Meropenem (Merrem) Confirm Administered Dose 500 mg .ROUTE .ST-MED ONE Stop: 05/19/16 13:31 Last Admin: 05/19/16 14:25 Dose: 500 mg Metoclopramide HCl (Reglan) 10 mg IV Q6H [facility] Last Admin: 05/14/16 08:03 Dose: 10 mg Midazolam HCl (Versed 1 Mg/Ml) Confirm Administered Dose 2 mg .ROUTE .ST-MED ONE Stop: 05/14/16 07:44 Midazolam HCl (Versed 1 Mg/Ml) Confirm Administered Dose 2 mg .ROUTE .ST-MED ONE Stop: 05/17/16 07:22 Midazolam HCl (Versed 1 Mg/Ml) Confirm Administered Dose 2 mg .ROUTE .ST-MED ONE Stop: 05/19/16 12:13 Naloxone HCl (Narcan) 0.4 mg IV ASDIRECTED PRN PRN Reason: ITCHING Neostigmine Methylsulfate (Neostigmine) Confirm Administered Dose 5 mg .ROUTE .ST-MED ONE Stop: 05/09/16 08:37 Neostigmine Methylsulfate (Neostigmine) Confirm Administered Dose 5 mg .ROUTE .STK-MED ONE Stop: 05/14/16 07:44 Neostigmine Methylsulfate (Neostigmine) Confirm Administered Dose 5 mg .ROUTE .ST-MED ONE Stop: 05/19/16 12:14 Scopolamine Patch (Check) 1 each TOP DAILY [facility] Last Admin: 05/16/16 09:03 Dose: Not Given Check Fentanyl Patch (Daily) 1 each TOP DAILY [facility] Last Admin: 05/15/16 09:06 Dose: Not Given Ondansetron HCl (Zofran) Confirm Administered Dose 4 mg .ROUTE .STK-MED ONE Stop: 05/09/16 08:37 Ondansetron HCl (Zofran) Confirm Administered Dose 4 mg .ROUTE .ST-MED ONE Stop: 05/14/16 07:44 Ondansetron HCl (Zofran) Confirm Administered Dose 4 mg .ROUTE .STK-MED ONE Stop: 05/19/16 12:14 Pantoprazole Sodium (Protonix Iv) 40 mg IVPUSH Q24H [facility] Last Admin: 05/11/16 16:53 Dose: 40 mg Pantoprazole Sodium (Protonix) 40 mg PO Q24H [facility] Last Admin: 05/13/16 16:59 Dose: 40 mg Phenylephrine HCl (Yan-Synephrine) Confirm Administered Dose 10 mg .ROUTE .STK- MED ONE Stop: 05/14/16 09:27 Propofol (Diprivan 20 Ml) Confirm Administered Dose 200 mg .ROUTE .STK-MED ONE Stop: 05/09/16 08:37 Propofol (Diprivan 20 Ml) Confirm Administered Dose 200 mg .ROUTE .STK-MED ONE Stop: 05/11/16 07:00 Propofol (Diprivan 20 Ml) Confirm Administered Dose 200 mg .ROUTE .STK-MED ONE Stop: 05/14/16 07:44 Propofol (Diprivan 20 Ml) Confirm Administered Dose 200 mg .ROUTE .STK-MED ONE Stop: 05/17/16 07:22 Propofol (Diprivan 20 Ml) Confirm Administered Dose 200 mg .ROUTE .STK-MED ONE Stop: 05/19/16 12:14 Rocuronium [place] (Zemuron) Confirm Administered Dose 100 mg .ROUTE .STK-MED ONE Stop: 05/09/16 08:37 Rocuronium [place] (Zemuron) Confirm Administered Dose 50 mg .ROUTE .STK-MED ONE Stop: 05/14/16 07:44 Rocuronium [place] (Zemuron) Confirm Administered Dose 50 mg .ROUTE .STK-MED ONE Stop: 05/19/16 12:14 Scopolamine (Transderm-Scop) 1.5 mg TOP Q72H [facility] Stop: 05/12/16 06:00 Last Admin: 05/09/16 07:53 Dose: 1.5 mg Scopolamine (Transderm-Scop) Confirm Administered Dose 1.5 mg .ROUTE .STK-MED ONE Stop: 05/09/16 08:37 Scopolamine (Transderm-Scop) 1.5 mg TOP ASDIRECTED [facility] Stop: 05/12/16 16:00 Scopolamine (Transderm-Scop) 1.5 mg TOP Q72H [facility] Last Admin: 05/12/16 09:17 Dose: 1.5 mg Sodium Chloride (Saline Flush) 10 ml FLUSH ONETIME ONE Stop: 05/13/16 18:10 Last Admin: 05/13/16 19:22 Dose: 10 ml Succinylcholine Chloride (Succinylcholine In Ns Pf) Confirm Administered Dose 200 mg .ROUTE .STK-MED ONE Stop: 05/09/16 08:37 Succinylcholine Chloride (Succinylcholine In Ns Pf) Confirm Administered Dose 200 mg .ROUTE .STK-MED ONE Stop: 05/14/16 07:44 Succinylcholine Chloride (Succinylcholine In Ns Pf) Confirm Administered Dose 200 mg .ROUTE .STK-MED ONE Stop: 05/19/16 12:14 Vancomycin HCl (Vancomycin) 1 gm IV .PHARMACY TO DOSE [facility] - Exam Quality Assessment: supplemental oxygen, urine catheter, DVT prophylaxis General: alert, cooperative, moderate distress Lungs: Clear to auscultation, Normal respiratory effort Cardiovascular: regular rate, regular rhythm, no murmurs Abdomen: soft, tenderness, abnormal bowel sounds Extremities: no edema Skin: warm, dry, intact Consult PN Assessment/Plan Procedures: Procedures ASSAY OF LACTIC ACID (03/04/16) ASSAY OF MAGNESIUM (04/07/16) ASSAY OF PHOSPHORUS (04/07/16) ASSAY THYROID STIM HORMONE (10/08/15) BLOOD TYPING SEROLOGIC ABO (04/14/15) BLOOD TYPING SEROLOGIC RH(D) (04/14/15) C-REACTIVE PROTEIN (04/07/16) COMPLETE CBC AUTOMATED (04/07/16) COMPLETE CBC W/AUTO DIFF WBC (04/07/16) COMPREHEN METABOLIC PANEL (04/07/16) CT ABD & PELV W/CONTRAST (03/04/16) CULTURE SCREEN ONLY (11/10/15) ELECTROCARDIOGRAM TRACING (04/14/15) EMERGENCY DEPT VISIT (04/07/16) HYDRATE IV INFUSION ADD-ON (04/07/16) MEASURE BLOOD OXYGEN LEVEL (01/01/16) METABOLIC PANEL TOTAL CA (03/04/16) PT EVALUATION (11/10/15) RBC ANTIBODY SCREEN (04/14/15) ROUTINE VENIPUNCTURE (04/07/16) SPECIAL STAINS GROUP 2 (04/14/15) THER/PROPH/DIAG INJ IV PUSH (04/07/16) THER/PROPH/DIAG IV INF ADDON (03/04/16) THER/PROPH/DIAG IV INF INIT (03/04/16) THERAPEUTIC ACTIVITIES (11/10/15) TISSUE EXAM BY PATHOLOGIST (01/01/16) TISSUE EXAM BY PATHOLOGIST (01/01/16) TISSUE EXAM BY PATHOLOGIST (04/14/15) TISSUE EXAM BY PATHOLOGIST (04/14/15) TX/PRO/DX INJ NEW DRUG ADDON (04/07/16) URINALYSIS AUTO W/SCOPE (04/07/16) X-RAY EXAM OF ABDOMEN (04/07/16) X-RAY EXAM SERIES ABDOMEN (04/07/16) X-RAY UPPER GI DELAY W/O KUB (03/04/16) X-RAY UPPER GI&SMALL INTEST (04/07/16) Problem List Initiated/Reviewed/Updated: Yes My Orders last 24 hours: My Active Orders 05/19/16 16:30 Vancomycin 1 gm Sodium Chloride 0.9% [Normal Saline] 250 ml IV Q8H Plan: Assessment and Plan - Abdominal abscess with peritonitis secondary to JJ leak - status post exploratory laparotomy 3/4. Because of persistent low-grade temperature elevation and slow increase in white count CT scan was obtained yesterday showing further abscess development in the region of the spleen. She's been taken back to surgery for further drainage, since surgery he has been fairly stable. Fever has resolved but white count remained significantly elevated. -Remains on IV Zosyn and Azactam -Followup cultures -additional postop cares per surgical team Recurrent fever-chest x-ray shows evidence of infiltrate which would need to be considered a hospital-acquired pneumonia -Repeat blood cultures have been obtained -Sputum cultures -Expand IV antibiotic coverage including vancomycin and levofloxacin, pending culture results Elevated bilirubin with mild elevation of AST and ALT - history of similar elevations following surgery though not bilirubin to this extent. Levels have remained normal so far. -Labs in the morning Delirium - resolved
[2016-05-20] MEDS: Albumin 25% 50 ML IV SCH ×4 (09:55→16:47)
--- NOTE | 2016-05-20 10:20 | PN ---
DATE OF SERVICE: 05/19/2016 SUBJECTIVE: The patient has now been afebrile over the last 24 hours, temperature is in 99 range, and still running in a mild tachycardia with a heart rate of 100 to 110. Vital signs are otherwise stable. Urine output has been satisfactory, and she was up and moving somewhat better yesterday. The Gram stain on the drain in the upper left quadrant has some mixed Gram-positive, Gram-negative majo, both are quite scant. The plan today will be to obtain a CT scan of the abdomen and pelvis to make sure we are not missing any kind of undrained collections at this point. The NG output for the 24 hours was 650 mL. We will obtain the CAT scan of the abdomen with some oral contrast, and it looks like emptying through the GI tract is fairly well and may very well perhaps get the NG tube out today. Otherwise, no major problems are noted on the labs. White count is up somewhat, but with the fevers going down that may actually be a more of an appropriate response to the overall process the patient is going through. We will keep the present antibiotics get some sensitivities on the most recent cultures from the LACIE drain and monitor things as necessary at that point. Kit Duke MD /[id number]
--- NOTE | 2016-05-20 11:08 | OR ---
DATE OF PROCEDURE: 05/14/2016 PREOPERATIVE DIAGNOSIS: Probable anastomotic leak. POSTOPERATIVE DIAGNOSES: 1. Leak at jejunojejunostomy with focal abscess in the left upper quadrant and diffuse peritonitis involving the lower 2/3rd of the abdomen and pelvis. 2. Limited peripheral venous access. OPERATIVE PROCEDURE: 1. Insertion of left subclavian vein triple-lumen catheter (71466). 2. Exploratory laparotomy with. a. Drainage of intraabdominal abscess and irrigation of diffuse peritonitis (93338). b. Small bowel resection (48724). c. Separate jejunojejunostomy to reestablish the [place]-en-Y small bowel anatomy (11755). ANESTHESIA: General. 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 This was done on 05/09. The patient at that time also had some extensive adhesions involving the [place] limb and had a portion of that small bowel resected, and a secondary anastomosis to reestablish the [place]-en-Y anatomy. Overnight, the patient developed some leak of what appears to be GI content from the left upper quadrant LACIE drain. Initial CT scan did not show any obvious abscess formation. The patient has had a smoldering clinical course overnight, and given this, the plan is to proceed with exploratory laparotomy with procedures as indicated, including probable bowel resection and reanastomosis. The patient at this point will be needing indication for some central venous access to limit a peripheral venous access as well as need for postoperative hyperalimentation given a central line will also be placed. Potential risks of the procedure were reviewed with the patient and who was present including bleeding, infection, further leaks from various GI tract closures, possible additional abscess, and/or other infectious complications, pneumohemothorax, related to the central line insertion were all gone over, and the patient and wished to proceed. DETAILS OF PROCEDURE: The patient was taken to the operating room and placed in a supine position. After general endotracheal anesthesia was induced, the upper chest and neck areas were prepped and draped. The left subclavian vein was cannulated, guidewire passed over the guidewire, a triple-lumen catheter placed, good inflow and outflow was noted. Ports were flushed with heparinized saline and the catheter sutured to skin with some 3-0 Vicryl stitch. Subsequent chest x-ray showed good catheter position without complications. The abdomen was then prepped and draped. At this point, the previous midline murtaza and the incision closure was reopened. Upon entering the peritoneal cavity, there was a concentration of GI tract content located in more or less an abscess-type configuration, adjacent to the jejunojejunostomy at the point where the [place] limb had been anastomosed to the bowel, consisting of the duodenal limb, and this became the common limb, and that appeared to be the point of disruption of the anastomosis beyond the abscess. In the immediate area, there was more or less a diffuse peritonitis in the lower 2/3rd of the abdomen. This did not appear to extend up onto the uppermost abdomen on either side. The anastomosis was inspected and found to be secure. At this point, that anastomosis was detached, and the end of the [place] limb then closed off with a LAUREL stapler, and the small bowel at the point of the anastomotic leak was resected. At that point, an ongoing GI tract leaking had been stopped, and the abdomen was irrigated with extensive several liters of meropenem-containing saline solution until all areas were returning clear. At this point, GI tract continuity was reestablished. Initially, the small bowel that had been consisting of the going into the common limb was reanastomosed to itself with a [id number] firing of the endo-LAUREL murtaza, and then the common opening closed transversely with the same stapler. The angle of anastomosis was reinforced with 3-0 Vicryl stitch. There is no significant mesenteric defect in this case. In terms of re-establishing the August[place]-en-Y anatomy, the [place] limb was coming out of area of intense adhesion formation just below the point of its concurrent division. The blood supply appeared to be good to this area, and the small bowel, which at this point would be the area somewhat proximal to the initial anastomosis was fairly dilated, and both areas appeared to allow placement of an EEA 28 mm stapler. A small opening was then made in the divided end of the [place] limb, and the anvil placed into that area. This was re-stapled, and the anvil shaft brought out between the staple line. A transverse opening in the small bowel roughly 20 cm proximal to the initial anastomosis was then made and then brought up through the small bowel a few centimeters and out through the antimesenteric end, which was one area that came up quite nicely through the divided end of the [place] limb. The 2 components of stapler were then connected, and the jejunojejunostomy thus created. Upon removal of stapler, double donuts of mucosa were noted within it. The small bowel opening at the point where the EEA stapler had been brought through was closed with a LAUREL reyes load transversely. The last anastomosis then also reinforced with some 3-0 Vicryl seromuscular stitch and all 3 of the GI tract closure sites were reinforced with fibrin sealant. At this point, 3 Valentino-Young drains were placed on each side of the abdomen, and the abdomen once again irrigated with 2 additional liters of meropenem-containing saline solution until all areas appeared to be clear. The midline fascia was then approximated with #2 Vicryl stitch. The skin and subcutaneous tissues were felt to be at high risk for wound infection if a primary closure was undertaken. The incision had been extended quite a bit superiorly to roughly 3 fingerbreadths below the xiphoid. The drains were sutured to skin with some 3-0 Vicryl stitch, and the patient was taken to the recovery room in satisfactory condition. There were no evident complications. Kit Duke MD /[id number]
[2016-05-20] MEDS: Levofloxacin/Dextrose 5%-Water 750 MG in Premix Bag 1 BAG IV SCH (15:09)
[2016-05-20] MEDS: Pantoprazole 40 MG Vial IV SCH (17:21)
[2016-05-20] MEDS: Ondansetron 4 MG/2 ML SDV IVPUSH PRN (21:17)
[2016-05-21] MEDS: HYDROmorphone/Normal Saline 15 MG/30 ML PCA IV PRN (00:34)
[2016-05-21] MEDS: 1: AA 5%/Calcium/D15W/Lytes 1,000 ML with MVI, Adult with Vitamin K 10 ML, Chromium/Copp IV SCH ×6 (01:17→13:55)
[2016-05-21] MEDS: Meropenem 500 MG in Sodium Chloride 0.9% 50 ML IV SCH ×4 (03:29→21:47)
[2016-05-21] MEDS: Aztreonam/Dextrose-Water 1 GM in Premix Bag 1 BAG IV SCH ×2 (05:53→14:02)
[2016-05-21] MEDS: Lidocaine 1% with EPINEPHrine 1:100,000 50 ML MDV ONE ×2 (06:57→08:48)
[2016-05-21] MEDS: Bupivacaine 0.5% 50 ML MDV ONE ×2 (06:57→08:48)
[2016-05-21] MEDS: Meropenem 500 MG SDV ONE ×2 (06:58→08:51)
[2016-05-21] MEDS: Fluconazole/Normal Saline 400 MG in Premix Bag 1 BAG IV SCH (07:58)
[2016-05-21] MEDS ORDERED: Propofol 200 MG/20 ML SDV ONE (08:18)
[2016-05-21] MEDS ORDERED: Midazolam 1 MG/ML 2 ML SDV ONE (08:18)
[2016-05-21] MEDS ORDERED: fentaNYL 100 MCG/2 ML SDV ONE (08:18)
[2016-05-21] MEDS ORDERED: Vancomycin 1.1 GM in Sodium Chloride 0.9% 250 ML IV SCH (09:00)
[2016-05-21] MEDS: Albumin 25% 50 ML IV SCH ×4 (09:55→12:46)
[2016-05-21] MEDS: hydrOXYzine HCl 50 MG/ML SDV IM PRN (10:40)
[2016-05-21] MEDS: Levofloxacin/Dextrose 5%-Water 750 MG in Premix Bag 1 BAG IV SCH (11:17)
--- NOTE | 2016-05-21 12:02 | PCM.CONSN ---
- General Info Date of Service: 05/21/16 Functional Status: Reports: pain controlled - Review of Systems General: Reports: weakness. Denies: fever, chills Pulmonary: Reports: no symptoms Cardiovascular: Reports: no symptoms Gastrointestinal: Reports: Abdominal pain. Denies: Difficulty swallowing, Flatus, Nausea, Vomiting Systems Review Comment:: This patient is status post delayed primary closure done earlier this morning, she is fairly lethargic following surgery likely secondary to anesthetic effect. NG tube has been removed, she's not yet passing gas or had a bowel movement. Vital signs have remained stable and she has been afebrile. - Patient Data Vitals - most recent: Last Vital Signs Temp 99.4 F 05/21/16 11:54 Pulse 92 05/21/16 10:00 Resp 17 05/21/16 11:54 BP 134/74 05/21/16 11:54 Pulse Ox 100 05/21/16 11:54 Weight - most recent: 133 lb 15.987 oz I&O - last 24 hours: Intake & Output 05/20/16 05/21/16 05/21/16 22:59 06:59 14:59 Intake Total 2429 1621 Output Total 1365 1089 810 Balance 1064 532 -810 Lab Results last 24 hrs: Laboratory Results - last 24 hr 05/21/16 05/21/16 05/21/16 Range/Units 04:30 04:30 08:00 WBC 28.0 H (4.5-11.0) K/uL RBC 2.94 L (3.30-5.50) M/uL Hgb 8.2 L (12.0-15.0) g/dL Hct 24.6 L (36.0-48.0) % MCV 84 (80-98) fL MCH 28 (27-31) pg MCHC 33 (32-36) % Plt Count 505 H (150-400) K/uL Add Manual Diff Yes Neutrophils % (Manual) 80 H (36-66) % Band Neutrophils % 8 (5-11) % Lymphocytes % (Manual) 7 L (24-44) % Monocytes % (Manual) 5 (2-6) % Poikilocytosis Moderate H Anisocytosis Marked H Sodium 140 (140-148) mmol/L Potassium 4.1 (3.6-5.2) mmol/L Chloride 108 (100-108) mmol/L Carbon Dioxide 29 (21-32) mmol/L Anion Gap 3.4 L (5.0-14.0) mmol/L BUN 20 H (7-18) mg/dL Creatinine 0.4 L (0.6-1.0) mg/dL Est Cr Clr Drug Dosing 148.89 mL/min Estimated GFR (MDRD) > 60 (>60) Glucose 109 H (74-106) mg/dL Calcium 7.7 L (8.5-10.1) mg/dL Phosphorus 3.4 (2.5-4.9) mg/dL Magnesium 1.9 (1.8-2.4) mg/dL Total Bilirubin 0.4 (0.2-1.0) mg/dL AST 111 H D (15-37) U/L ALT 143 H (12-78) U/L Alkaline Phosphatase 92 D (46-116) U/L Total Protein 4.7 L (6.4-8.2) g/dL Albumin 2.1 L (3.4-5.0) g/dL Globulin 2.6 (2.3-3.5) g/dL Albumin/Globulin Ratio 0.8 L (1.2-2.2) Vancomycin Trough 12.4 (10.0-20.0) ug/mL Dereje Results last 24 hrs: Microbiology 05/19/16 14:17 Gram Stain - Final Abdomen - Abscess Wound Culture - Preliminary Anaerobic Culture - Preliminary NO GROWTH AFTER 1 DAY 05/19/16 13:43 Gram Stain - Final Spleen Wound Culture - Preliminary Anaerobic Culture - Preliminary NO GROWTH AFTER 1 DAY 05/18/16 06:55 Gram Stain - Final Valentino Young Drainage Wound Culture - Preliminary Enterobacter Dissolvens Escherichia Coli Med Orders - Current: Current Medications Acetaminophen (Tylenol) 650 mg RECTAL Q4H PRN PRN Reason: Fever Last Admin: 05/18/16 05:53 Dose: 650 mg Bacitracin (Bacitracin Oint 1 Gm) 1 dose TOP BID PRN PRN Reason: burn Last Admin: 05/12/16 20:31 Dose: 2 dose Dimethicone/Zinc Oxide (Rash Relief-Zinc Oxide [place]) 1 gm TOP ASDIRECTED PRN PRN Reason: Other Last Admin: 05/12/16 20:30 Dose: 1 bot Diphenhydramine HCl (Benadryl) 25 - 50 mg IVPUSH Q4H PRN PRN Reason: ITCHING Heparin Sodium (Porcine) (Heparin Lock Flush 100 Units/Ml Syringe) 500 units IVPUSH ASDIRECTED 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 Last Admin: 05/20/16 12:10 Dose: 500 units Hydromorphone HCl (Dilaudid [place]asket [place] 15 Mg In Ns 30 Ml) 0 mg IV ASDIRECTED PRN; Protocol PRN Reason: TRAP PULLER PAIN CONTROL Last Admin: 05/21/16 00:34 Dose: 15 mg Hydroxyzine HCl (Vistaril) 100 mg IM Q4H PRN PRN Reason: PAIN NOT CONTROLLED BY TRAP PULLER Last Admin: 05/21/16 10:40 Dose: 100 mg Meropenem 500 mg/ Sodium (Chloride) 50 mls @ 100 mls/hr IV Q6H [facility] Last Admin: 05/21/16 10:11 Dose: 100 mls/hr Aztreonam/Dextrose 1 gm/ (Premix) 50 mls @ 100 mls/hr IV Q8H [facility] Last Admin: 05/21/16 05:53 Dose: 100 mls/hr Albumin Human (Flexbumin 25%) 50 mls @ 50 mls/hr IV Q24H [facility] Stop: 05/23/16 23:00 Last Admin: 05/21/16 09:55 Dose: 50 mls/hr Albumin Human (Flexbumin 25%) 50 mls @ 50 mls/hr IV Q24H [facility] Stop: 05/23/16 23:00 Last Admin: 05/21/16 10:55 Dose: 50 mls/hr Albumin Human (Flexbumin 25%) 50 mls @ 50 mls/hr IV Q24H [facility] Stop: 05/23/16 23:00 Last Admin: 05/21/16 11:51 Dose: 50 mls/hr Albumin Human (Flexbumin 25%) 50 mls @ 50 mls/hr IV Q24H [facility] Stop: 05/23/16 23:00 Last Admin: 05/20/16 16:47 Dose: 50 mls/hr Multivitamins/Minerals 10 ml/Chromium/Copper/Manganese/Seleni/Zn 1 ml/ Amino Ac/ Electrol/Dextrose/Calcium 1,011 mls @ 82 mls/hr IV .BY DURATION [facility] Last Admin: 05/20/16 13:01 Dose: 82 mls/hr Amino Ac/Electrol/Dextrose/Calcium (Clinimix E 5/15) 1,000 mls @ 82 mls/hr IV .BY DURATION [facility] Last Admin: 05/21/16 01:17 Dose: 82 mls/hr Levofloxacin/Dextrose 750 mg/ (Premix) 150 mls @ 100 mls/hr IV Q24H [facility] Last Admin: 05/21/16 11:17 Dose: 100 mls/hr Lactated Ringer's (Ringers, Lactated) 1,000 mls @ 0 mls/hr IV ASDIRECTED SARAHY PRN Reason: KVO Fluconazole/Sodium Chloride (400 mg/ Premix) 200 mls @ 100 mls/hr IV Q24H [facility] Last Admin: 05/21/16 07:58 Dose: 100 mls/hr Vancomycin HCl 1.1 gm/ Sodium (Chloride) 250 mls @ 167 mls/hr IV Q8H [facility] Stop: 05/21/16 12:00 Last Admin: 05/21/16 09:50 Dose: 167 mls/hr Vancomycin HCl 1.1 gm/ Sodium (Chloride) 250 mls @ 167 mls/hr IV Q8H [facility] Naloxone HCl (Narcan) 0.1 mg IV ASDIRECTED PRN PRN Reason: decreased respiratory rate Ondansetron HCl (Zofran) 4 mg IVPUSH Q4H PRN PRN Reason: Nausea/Vomiting Last Admin: 05/20/16 21:17 Dose: 4 mg Pantoprazole Sodium (Protonix Iv) 40 mg IV Q24H [facility] Last Admin: 05/20/16 17:21 Dose: 40 mg Discontinued Medications Acetaminophen (Tylenol) 650 mg PO Q6H [facility] Last Admin: 05/16/16 09:03 Dose: Not Given Albuterol/Ipratropium (Duoneb 3.0-0.5 Mg/3 Ml) 3 ml NEB ONETIME STA Stop: 05/13/16 19:09 Last Admin: 05/13/16 19:21 Dose: 3 ml Alvimopan (Entereg) 12 mg PO ONETIME ONE Stop: 05/09/16 08:31 Last Admin: 05/09/16 08:30 Dose: 12 mg Alvimopan (Entereg) 12 mg PO Q12H [facility] Stop: 05/16/16 09:01 Last Admin: 05/10/16 09:04 Dose: 12 mg Bisacodyl (Dulcolax) 10 mg PO BID SARAHY Last Admin: 05/11/16 09:52 Dose: Not Given Bupivacaine HCl (Marcaine 0.5%) Confirm Administered Dose 50 ml .ROUTE .STK-MED ONE Stop: 05/11/16 06:49 Last Admin: 05/11/16 09:09 Dose: 32 ml Bupivacaine HCl (Marcaine 0.5%) Confirm Administered Dose 50 ml .ROUTE .STK-MED ONE Stop: 05/17/16 06:47 Last Admin: 05/17/16 08:07 Dose: 20 ml Bupivacaine HCl (Marcaine 0.5%) Confirm Administered Dose 50 ml .ROUTE .STK-MED ONE Stop: 05/19/16 14:06 Bupivacaine HCl (Marcaine 0.5%) Confirm Administered Dose 50 ml .ROUTE .STK-MED ONE Stop: 05/21/16 06:21 Last Admin: 05/21/16 08:48 Dose: 10 ml Bupivacaine HCl/Epinephrine Bitart (Marcaine 0.5%/Epinephrine 1:200,000) Confirm Administered Dose 50 ml .ROUTE .STK-MED ONE Stop: 05/19/16 14:06 Last Admin: 05/19/16 14:10 Dose: 25 ml Cefoxitin Sodium (Mefoxin) Confirm Administered Dose 2 gm .ROUTE .ST-MED ONE Stop: 05/09/16 06:55 Neomycin/Polymyxin 1 ml/ (Sodium Chloride 750 ml) 0 ml .XX ONETIME ONE Stop: 05/09/16 09:16 Last Admin: 05/09/16 13:25 Dose: Not Given Cyanocobalamin (Vitamin B12) 1,000 mcg IM ONETIME ONE Stop: 05/11/16 09:01 Last Admin: 05/11/16 09:53 Dose: 1,000 mcg Cyclobenzaprine HCl (Flexeril) 10 mg PO Q6H PRN PRN Reason: Muscle Spasm Last Admin: 05/13/16 06:22 Dose: 10 mg Dexamethasone (Dexamethasone) Confirm Administered Dose 4 mg .ROUTE .STK-MED ONE Stop: 05/09/16 08:37 Dexamethasone (Dexamethasone) Confirm Administered Dose 4 mg .ROUTE .STK-MED ONE Stop: 05/14/16 07:44 Dexamethasone (Dexamethasone) Confirm Administered Dose 4 mg .ROUTE .STK-MED ONE Stop: 05/19/16 12:14 Diatrizoate Meglum/Diatrizoate Sod (Gastrografin 37%) 30 ml PO . DIRECTED SARAHY Stop: 05/13/16 19:46 Last Admin: 05/13/16 19:33 Dose: 30 mg Diphenhydramine HCl (Benadryl) 25 mg IVPUSH Q6H PRN PRN Reason: ITCHING Diphenoxylate HCl/Atropine (Lomotil 0.025-2.5 Mg) 1 tab PO ONETIME ONE Stop: 05/12/16 10:36 Last Admin: 05/12/16 10:55 Dose: 1 tab Diphenoxylate HCl/Atropine (Lomotil 0.025-2.5 Mg) 1 tab PO Q6H PRN PRN Reason: Diarrhea Edrophonium Chloride (Enlon) Confirm Administered Dose 150 mg .ROUTE .STK-MED ONE Stop: 05/14/16 10:59 Edrophonium Chloride (Enlon) Confirm Administered Dose 150 mg .ROUTE .STK-MED ONE Stop: 05/19/16 14:23 Fentanyl (Sublimaze) Confirm Administered Dose 500 mcg .ROUTE .STK-MED ONE Stop: 05/09/16 08:37 Fentanyl (Sublimaze) Confirm Administered Dose 100 mcg .ROUTE .STK-MED ONE Stop: 05/09/16 08:39 Fentanyl (Duragesic) 12 mcg TRDERM Q72H [facility] Last Admin: 05/13/16 13:15 Dose: Not Given Fentanyl (Sublimaze) Confirm Administered Dose 250 mcg .ROUTE .STK-MED ONE Stop: 05/14/16 07:44 Fentanyl (Duragesic) 25 mcg TRDERM Q72H [facility] Last Admin: 05/14/16 16:58 Dose: Not Given Fentanyl (Sublimaze) Confirm Administered Dose 100 mcg .ROUTE .STK-MED ONE Stop: 05/17/16 07:22 Fentanyl (Sublimaze) Confirm Administered Dose 250 mcg .ROUTE .STK-MED ONE Stop: 05/19/16 12:13 Fentanyl (Sublimaze) Confirm Administered Dose 100 mcg .ROUTE .STK-MED ONE Stop: 05/21/16 08:19 Furosemide (Lasix) 20 mg IVPUSH ONETIME ONE Stop: 05/13/16 18:01 Last Admin: 05/13/16 18:21 Dose: 20 mg Gabapentin (Neurontin) 300 mg PO ONETIME ONE Stop: 05/09/16 08:16 Last Admin: 05/09/16 07:53 Dose: 300 mg Gabapentin (Neurontin) 300 mg PO TID [facility] Last Admin: 05/12/16 21:54 Dose: 300 mg Glycopyrrolate () Confirm Administered Dose 1 mg .ROUTE .STK-MED ONE Stop: 05/09/16 08:37 Glycopyrrolate () Confirm Administered Dose 1 mg .ROUTE .STK-MED ONE Stop: 05/14/16 07:44 Glycopyrrolate () Confirm Administered Dose 1 mg .ROUTE .STK-MED ONE Stop: 05/19/16 12:14 Heparin Sodium (Porcine) (Heparin Sodium) 5,000 units SUBCUT Q12H [facility] Stop: 05/10/16 20:00 Last Admin: 05/10/16 06:23 Dose: 5,000 units Heparin Sodium (Porcine) (Heparin Sodium) 5,000 units SUBCUT Q12H [facility] Heparin Sodium (Porcine) (Heparin Sodium) 5,000 units SUBCUT ONETIME ONE Stop: 05/10/16 17:01 Last Admin: 05/10/16 16:45 Dose: 5,000 units Heparin Sodium (Porcine) (Heparin Lock Flush 100 Units/Ml Syringe) 500 units FLUSH .STK-MED ONE Stop: 05/14/16 10:20 Last Admin: 05/14/16 10:19 Dose: 500 units Heparin Sodium (Porcine) (Heparin Lock Flush 100 Units/Ml Syringe) Confirm Administered Dose 500 units .ROUTE .STK-MED ONE Stop: 05/15/16 17:28 Last Admin: 05/15/16 19:22 Dose: Not Given Heparin Sodium (Porcine) (Heparin Lock Flush 100 Units/Ml Syringe) Confirm Administered Dose 500 units .ROUTE .STK-MED ONE Stop: 05/19/16 21:35 Last Admin: 05/19/16 21:50 Dose: 500 units Hydromorphone HCl (Dilaudid) 2 - 4 mg PO Q4H PRN PRN Reason: PAIN Last Admin: 05/14/16 02:12 Dose: 4 mg Hydroxyzine HCl (Vistaril) 75 - 100 mg IM Q4H PRN PRN Reason: PAIN NOT CONTROLLED BY TRAP PULLER Last Admin: 05/13/16 02:48 Dose: 100 mg Dextrose/Lactated Ringer's (Dextrose 5%-Lactated Ringers) 1,000 mls @ 100 mls/ hr IV ASDIRECTED SARAHY Last Admin: 05/09/16 07:55 Dose: 100 mls/hr Cefoxitin Sodium 2 gm/ Sodium (Chloride) 50 mls @ 100 mls/hr IV ONETIME ONE Stop: 05/09/16 09:44 Last Admin: 05/09/16 09:08 Dose: 100 mls/hr Fentanyl 2,500 mcg/ Sodium (Chloride) 250 mls @ 0 mls/hr EPIDUR TITRATE SARAHY; Titrate PRN Reason: Protocol Last Admin: 05/10/16 09:12 Dose: 10 ml/hr, 10 mls/hr Ketamine HCl 100 mg/ Sodium (Chloride) 100 mls @ 18 mls/hr IV ASDIRECTED SARAHY Stop: 05/09/16 13:00 Lactated Ringer's (Ringers, Lactated) Confirm Administered Dose 1,000 mls @ as directed .ROUTE .STK-MED ONE Stop: 05/09/16 08:37 Sodium Chloride (Normal Saline) Confirm Administered Dose 10 mls @ as directed .ROUTE .STK-MED ONE Stop: 05/09/16 08:39 Lidocaine HCl (Xylocaine-Mpf 1%) Confirm Administered Dose 2 mls @ as directed .ROUTE .STK-MED ONE Stop: 05/09/16 09:24 Lactated Ringer's (Ringers, Lactated) Confirm Administered Dose 1,000 mls @ as directed .ROUTE .STK-MED ONE Stop: 05/09/16 11:10 Lactated Ringer's (Ringers, Lactated) 500 mls @ 500 mls/hr IV .BOLUS ONE Stop: 05/09/16 14:59 Last Admin: 05/09/16 14:03 Dose: 500 mls/hr Dextrose/Lactated Ringer's (Dextrose 5%-Lactated Ringers) 1,000 mls @ 200 mls/ hr IV ASDIRECTED SARAHY Stop: 05/10/16 17:59 Last Admin: 05/10/16 15:05 Dose: 200 mls/hr Multivitamins/Minerals 10 ml/Thiamine HCl 200 mg/ Chromium/Copper/Manganese/ Seleni/Zn 1 ml/ Dextrose/Lactated Ringer's 1,013 mls @ 100 mls/hr IV DAILY@ 1600 [facility] Last Admin: 05/14/16 16:33 Dose: Not Given Cefoxitin Sodium 2 gm/ Sodium (Chloride) 50 mls @ 100 mls/hr IV Q6H [facility] Last Admin: 05/12/16 03:39 Dose: 100 mls/hr Acetaminophen 1,000 mg/ Premix 100 mls @ 400 mls/hr IV Q6H [facility] Stop: 05/10/16 04:14 Last Admin: 05/10/16 04:19 Dose: 400 mls/hr Ketamine HCl 100 mg/ Sodium (Chloride) 101 mls @ as directed IV .STK-MED ONE Stop: 05/09/16 09:46 Dextrose/Lactated Ringer's (Dextrose 5%-Lactated Ringers) 1,000 mls @ 100 mls/ hr IV ASDIRECTED [facility] Last Admin: 05/13/16 02:59 Dose: 100 mls/hr Magnesium Sulfate 2 gm/ Sodium (Chloride) 54 mls @ 27 mls/hr IV ONETIME ONE Stop: 05/13/16 11:59 Last Admin: 05/13/16 10:01 Dose: 27 mls/hr Magnesium Sulfate 2 gm/ Premix 50 mls @ 25 mls/hr IV Q6H [facility] Stop: 05/15/16 05:59 Last Admin: 05/16/16 09:03 Dose: Not Given Potassium Phosphate 20 mmole/ (Sodium Chloride) 256.6667 mls @ 85 mls/hr IV Q3H [facility] Stop: 05/13/16 18:59 Last Admin: 05/13/16 19:49 Dose: 85 mls/hr Dextrose/Lactated Ringer's (Dextrose 5%-Lactated Ringers) 1,000 mls @ 80 mls/ hr IV ASDIRECTED [facility] Stop: 05/14/16 14:29 Last Admin: 05/13/16 18:20 Dose: 25 mls/hr Meropenem 500 mg/ Sodium (Chloride) 50 mls @ 100 mls/hr IV ONETIME ONE Stop: 05/13/16 18:29 Last Admin: 05/13/16 18:28 Dose: 100 mls/hr Sodium Chloride (Normal Saline) 70 mls @ 3 mls/sec IV ASDIRECTED [facility] Last Admin: 05/13/16 19:22 Dose: 3 mls/sec Aztreonam 1 gm/ Sodium (Chloride) 50 mls @ 100 mls/hr IV Q8HR [facility] Last Admin: 05/14/16 05:39 Dose: 100 mls/hr Sodium Chloride (Normal Saline) Confirm Administered Dose 10 mls @ as directed .ROUTE .[facility] ONE Stop: 05/14/16 08:52 Sodium Chloride (Normal Saline) Confirm Administered Dose 10 mls @ as directed .ROUTE .[facility] ONE Stop: 05/14/16 09:28 Lactated Ringer's (Ringers, Lactated) Confirm Administered Dose 1,000 mls @ as directed .ROUTE .[facility] ONE Stop: 05/14/16 09:34 Multivitamins/Minerals 10 ml/Chromium/Copper/Manganese/Seleni/Zn 1 ml/ Amino Ac/ Electrol/Dextrose/Calcium 1,011 mls @ 82 mls/hr IV .BY DURATION [facility] Stop: 05/16/16 10:59 Last Admin: 05/15/16 15:31 Dose: 82 mls/hr Amino Ac/Electrol/Dextrose/Calcium (Clinimix E 15) 1,000 mls @ 82 mls/hr IV .BY DURATION [facility] Stop: 05/16/16 10:59 Last Admin: 05/16/16 03:41 Dose: 82 mls/hr Lactated Ringer's (Ringers, Lactated) 1,000 mls @ 100 mls/hr IV ASDIRECTED [facility] Last Admin: 05/20/16 03:16 Dose: 100 mls/hr Acetaminophen 1,000 mg/ Premix 100 mls @ 400 mls/hr IV Q6H [facility] Stop: 05/15/16 10:14 Last Admin: 05/15/16 10:12 Dose: 400 mls/hr Potassium Phosphate 15 mmole/Lidocaine HCl 2 ml/ Sodium Chloride 157 mls @ 53 mls/hr IV Q3H [facility] Stop: 05/15/16 15:58 Last Admin: 05/15/16 13:04 Dose: 53 mls/hr Potassium Phosphate 15 mmole/ (Sodium Chloride) 155 mls @ 55 mls/hr IV Q3H [facility] Stop: 05/16/16 16:50 Last Admin: 05/16/16 17:27 Dose: 55 mls/hr Vancomycin HCl 1.3 gm/ Sodium (Chloride) 250 mls @ 167 mls/hr IV ONETIME ONE Stop: 05/17/16 14:29 Last Admin: 05/17/16 13:18 Dose: 167 mls/hr Vancomycin HCl 1 gm/ Sodium (Chloride) 250 mls @ 167 mls/hr IV Q12H [facility] Last Admin: 05/19/16 00:30 Dose: 167 mls/hr Sodium Chloride (Normal Saline) 70 mls @ 3 mls/sec IV ASDIRECTED [facility] Stop: 05/19/16 08:30 Lactated Ringer's (Ringers, Lactated) Confirm Administered Dose 1,000 mls @ as directed .ROUTE .[facility] Stop: 05/19/16 13:23 Sodium Chloride (Normal Saline) Confirm Administered Dose 10 mls @ as directed .ROUTE .[facility] ONE Stop: 05/19/16 13:31 Vancomycin HCl 1 gm/ Sodium (Chloride) 250 mls @ 167 mls/hr IV Q8H [facility] Last Admin: 05/21/16 00:14 Dose: 167 mls/hr Ibuprofen (Motrin) 600 mg PO Q6H [facility] Last Admin: 05/13/16 05:24 Dose: Not Given Inulin (Fiber Choice) 4.5 gm PO BID [facility] Last Admin: 05/16/16 09:03 Dose: Not Given Iohexol (Omnipaque-300) 50 ml PO .ASDIRECTED [facility] Last Admin: 05/10/16 03:46 Dose: 50 ml Iohexol (Omnipaque-300) 10 ml PO . DIRECTED PRN PRN Reason: RADIOLOGY EXAM Stop: 05/20/16 08:30 Last Admin: 05/19/16 07:44 Dose: 10 ml Iopamidol (Isovue-300 (61%)) 100 ml IV . DIRECTED [facility] Last Admin: 05/13/16 19:22 Dose: 90 ml Iopamidol (Isovue-300 (61%)) 90 ml IV . DIRECTED PRN PRN Reason: RADIOLOGY EXAM Stop: 05/19/16 08:30 Last Admin: 05/19/16 07:44 Dose: 90 ml Ketamine HCl (Ketalar) 30 mg IV ASDIRECTED [facility] Stop: 05/09/16 11:00 Ketamine HCl (Ketalar) 30 mg IV .STK-MED ONE Stop: 05/09/16 09:46 Ketamine HCl (Ketalar) Confirm Administered Dose 500 mg .ROUTE .STK-MED ONE Stop: 05/14/16 08:51 Lactobacillus Rhamnosus (Culturelle) 2 cap PO BID SARAHY Last Admin: 05/16/16 09:04 Dose: Not Given Lidocaine/Epinephrine (Xylocaine 1% With Epinephrine 1:100,000) Confirm Administered Dose 50 ml .ROUTE .STK-MED ONE Stop: 05/11/16 06:49 Last Admin: 05/11/16 09:09 Dose: 32 ml Lidocaine/Epinephrine (Xylocaine 1% With Epinephrine 1:100,000) Confirm Administered Dose 50 ml .ROUTE .STK-MED ONE Stop: 05/17/16 06:47 Last Admin: 05/17/16 08:07 Dose: 20 ml Lidocaine/Epinephrine (Xylocaine 1% With Epinephrine 1:100,000) Confirm Administered Dose 50 ml .ROUTE .STK-MED ONE Stop: 05/21/16 06:21 Last Admin: 05/21/16 08:48 Dose: 10 ml Meperidine HCl (Demerol) 50 mg IM ASDIRECTED PRN PRN Reason: PAIN Stop: 05/10/16 14:45 Meropenem (Merrem) Confirm Administered Dose 500 mg .ROUTE .STK-MED ONE Stop: 05/09/16 08:14 Last Admin: 05/09/16 10:24 Dose: 500 mg Meropenem (Merrem) Confirm Administered Dose 500 mg .ROUTE .STK-MED ONE Stop: 05/11/16 06:49 Last Admin: 05/11/16 09:10 Dose: 500 mg Meropenem (Merrem) Confirm Administered Dose 500 mg .ROUTE .STK-MED ONE Stop: 05/14/16 07:31 Last Admin: 05/14/16 10:19 Dose: 500 mg Meropenem (Merrem) Confirm Administered Dose 500 mg .ROUTE .STK-MED ONE Stop: 05/14/16 10:03 Last Admin: 05/14/16 10:19 Dose: 500 mg Meropenem (Merrem) Confirm Administered Dose 500 mg .ROUTE .STK-MED ONE Stop: 05/17/16 06:46 Last Admin: 05/17/16 08:12 Dose: 500 mg Meropenem (Merrem) Confirm Administered Dose 500 mg .ROUTE .STK-MED ONE Stop: 05/19/16 12:10 Last Admin: 05/19/16 13:30 Dose: 500 mg Meropenem (Merrem) Confirm Administered Dose 500 mg .ROUTE .STK-MED ONE Stop: 05/19/16 13:31 Last Admin: 05/19/16 14:25 Dose: 500 mg Meropenem (Merrem) Confirm Administered Dose 500 mg .ROUTE .STK-MED ONE Stop: 05/21/16 06:20 Last Admin: 05/21/16 08:51 Dose: 500 mg Metoclopramide HCl (Reglan) 10 mg IV Q6H [facility] Last Admin: 05/14/16 08:03 Dose: 10 mg Midazolam HCl (Versed 1 Mg/Ml) Confirm Administered Dose 2 mg .ROUTE .STK-MED ONE Stop: 05/14/16 07:44 Midazolam HCl (Versed 1 Mg/Ml) Confirm Administered Dose 2 mg .ROUTE .STK-MED ONE Stop: 05/17/16 07:22 Midazolam HCl (Versed 1 Mg/Ml) Confirm Administered Dose 2 mg .ROUTE .STK-MED ONE Stop: 05/19/16 12:13 Midazolam HCl (Versed 1 Mg/Ml) Confirm Administered Dose 2 mg .ROUTE .STK-MED ONE Stop: 05/21/16 08:19 Naloxone HCl (Narcan) 0.4 mg IV ASDIRECTED PRN PRN Reason: ITCHING Neostigmine Methylsulfate (Neostigmine) Confirm Administered Dose 5 mg .ROUTE .STK-MED ONE Stop: 05/09/16 08:37 Neostigmine Methylsulfate (Neostigmine) Confirm Administered Dose 5 mg .ROUTE .STK-MED ONE Stop: 05/14/16 07:44 Neostigmine Methylsulfate (Neostigmine) Confirm Administered Dose 5 mg .ROUTE .STK-MED ONE Stop: 05/19/16 12:14 Scopolamine Patch (Check) 1 each TOP DAILY [facility] Last Admin: 05/16/16 09:03 Dose: Not Given Check Fentanyl Patch (Daily) 1 each TOP DAILY [facility] Last Admin: 05/15/16 09:06 Dose: Not Given Ondansetron HCl (Zofran) Confirm Administered Dose 4 mg .ROUTE .STK-MED ONE Stop: 05/09/16 08:37 Ondansetron HCl (Zofran) Confirm Administered Dose 4 mg .ROUTE .STK-MED ONE Stop: 05/14/16 07:44 Ondansetron HCl (Zofran) Confirm Administered Dose 4 mg .ROUTE .STK-MED ONE Stop: 05/19/16 12:14 Pantoprazole Sodium (Protonix Iv) 40 mg IVPUSH Q24H [facility] Last Admin: 05/11/16 16:53 Dose: 40 mg Pantoprazole Sodium (Protonix) 40 mg PO Q24H [facility] Last Admin: 05/13/16 16:59 Dose: 40 mg Phenylephrine HCl (Yan-Synephrine) Confirm Administered Dose 10 mg .ROUTE .ST- MED ONE Stop: 05/14/16 09:27 Propofol (Diprivan 20 Ml) Confirm Administered Dose 200 mg .ROUTE .ST-MED ONE Stop: 05/09/16 08:37 Propofol (Diprivan 20 Ml) Confirm Administered Dose 200 mg .ROUTE .ST-MED ONE Stop: 05/11/16 07:00 Propofol (Diprivan 20 Ml) Confirm Administered Dose 200 mg .ROUTE .STK-MED ONE Stop: 05/14/16 07:44 Propofol (Diprivan 20 Ml) Confirm Administered Dose 200 mg .ROUTE .ST-MED ONE Stop: 05/17/16 07:22 Propofol (Diprivan 20 Ml) Confirm Administered Dose 200 mg .ROUTE .STK-MED ONE Stop: 05/19/16 12:14 Propofol (Diprivan 20 Ml) Confirm Administered Dose 200 mg .ROUTE .ST-MED ONE Stop: 05/21/16 08:19 Rocuronium [place] (Zemuron) Confirm Administered Dose 100 mg .ROUTE .ST-MED ONE Stop: 05/09/16 08:37 Rocuronium [place] (Zemuron) Confirm Administered Dose 50 mg .ROUTE .STK-MED ONE Stop: 05/14/16 07:44 Rocuronium [place] (Zemuron) Confirm Administered Dose 50 mg .ROUTE .STK-MED ONE Stop: 05/19/16 12:14 Scopolamine (Transderm-Scop) 1.5 mg TOP Q72H [facility] Stop: 05/12/16 06:00 Last Admin: 05/09/16 07:53 Dose: 1.5 mg Scopolamine (Transderm-Scop) Confirm Administered Dose 1.5 mg .ROUTE .STK-MED ONE Stop: 05/09/16 08:37 Scopolamine (Transderm-Scop) 1.5 mg TOP ASDIRECTED [facility] Stop: 05/12/16 16:00 Scopolamine (Transderm-Scop) 1.5 mg TOP Q72H [facility] Last Admin: 05/12/16 09:17 Dose: 1.5 mg Sodium Chloride (Saline Flush) 10 ml FLUSH ONETIME ONE Stop: 05/13/16 18:10 Last Admin: 05/13/16 19:22 Dose: 10 ml Succinylcholine Chloride (Succinylcholine In Ns Pf) Confirm Administered Dose 200 mg .ROUTE .STK-MED ONE Stop: 05/09/16 08:37 Succinylcholine Chloride (Succinylcholine In Ns Pf) Confirm Administered Dose 200 mg .ROUTE .STK-MED ONE Stop: 05/14/16 07:44 Succinylcholine Chloride (Succinylcholine In Ns Pf) Confirm Administered Dose 200 mg .ROUTE .STK-MED ONE Stop: 05/19/16 12:14 Vancomycin HCl (Vancomycin) 1 gm IV .PHARMACY TO DOSE [facility] - Exam Quality Assessment: DVT prophylaxis General: sedated, lethargic Lungs: Clear to auscultation, Normal respiratory effort Cardiovascular: regular rate, regular rhythm, no murmurs Abdomen: soft, tenderness, abnormal bowel sounds. No: rigidity, rebound, guarding, distension Extremities: no edema Skin: warm, dry, intact Consult PN Assessment/Plan Procedures: Procedures ASSAY OF LACTIC ACID (03/04/16) ASSAY OF MAGNESIUM (04/07/16) ASSAY OF PHOSPHORUS (04/07/16) ASSAY THYROID STIM HORMONE (10/08/15) BLOOD TYPING SEROLOGIC ABO (04/14/15) BLOOD TYPING SEROLOGIC RH(D) (04/14/15) C-REACTIVE PROTEIN (04/07/16) COMPLETE CBC AUTOMATED (04/07/16) COMPLETE CBC W/AUTO DIFF WBC (04/07/16) COMPREHEN METABOLIC PANEL (04/07/16) CT ABD & PELV W/CONTRAST (03/04/16) CULTURE SCREEN ONLY (11/10/15) ELECTROCARDIOGRAM TRACING (04/14/15) EMERGENCY DEPT VISIT (04/07/16) HYDRATE IV INFUSION ADD-ON (04/07/16) MEASURE BLOOD OXYGEN LEVEL (01/01/16) METABOLIC PANEL TOTAL CA (03/04/16) PT EVALUATION (11/10/15) RBC ANTIBODY SCREEN (04/14/15) ROUTINE VENIPUNCTURE (04/07/16) SPECIAL STAINS GROUP 2 (04/14/15) THER/PROPH/DIAG INJ IV PUSH (04/07/16) THER/PROPH/DIAG IV INF ADDON (03/04/16) THER/PROPH/DIAG IV INF INIT (03/04/16) THERAPEUTIC ACTIVITIES (11/10/15) TISSUE EXAM BY PATHOLOGIST (01/01/16) TISSUE EXAM BY PATHOLOGIST (01/01/16) TISSUE EXAM BY PATHOLOGIST (04/14/15) TISSUE EXAM BY PATHOLOGIST (04/14/15) TX/PRO/DX INJ NEW DRUG ADDON (04/07/16) URINALYSIS AUTO W/SCOPE (04/07/16) X-RAY EXAM OF ABDOMEN (04/07/16) X-RAY EXAM SERIES ABDOMEN (04/07/16) X-RAY UPPER GI DELAY W/O KUB (03/04/16) X-RAY UPPER GI&SMALL INTEST (04/07/16) Problem List Initiated/Reviewed/Updated: Yes My Orders last 24 hours: My Active Orders 05/21/16 09:00 Vancomycin 1.1 gm Sodium Chloride 0.9% [Normal Saline] 250 ml IV Q8H 05/21/16 18:00 Vancomycin 1.1 gm Sodium Chloride 0.9% [Normal Saline] 250 ml IV Q8H 05/22/16 05:00 COMPREHENSIVE METABOLIC PN,CMP [CHEM] Timed MAGNESIUM [CHEM] Timed Plan: Assessment and Plan - Abdominal abscess with peritonitis secondary to JJ leak - status post exploratory laparotomy 3. Because of persistent low-grade temperature elevation and slow increase in white count CT scan was obtained on showing further abscess development in the region of the spleen. She's been taken back to surgery for further drainage, since surgery she has been fairly stable. Fever has resolved but white count remained significantly elevated. Status post delayed primary closure earlier today -Remains on IV Zosyn and Azactam -Followup cultures -additional postop cares per surgical team Recurrent fever-chest x-ray shows evidence of infiltrate which would need to be considered a hospital-acquired pneumonia. Respiratory status has been stable over the past few days -Repeat blood cultures have been obtained -Sputum cultures -Expand IV antibiotic coverage including vancomycin and levofloxacin, pending culture results Elevated bilirubin with mild elevation of AST and ALT - history of similar elevations following surgery though not bilirubin to this extent. Levels have remained normal so far. -Labs in the morning Delirium - resolved
[2016-05-21] MEDS: Pantoprazole 40 MG Vial IV SCH (15:53)
[2016-05-21] MEDS: Vancomycin 1.1 GM in Sodium Chloride 0.9% 250 ML IV SCH (17:02)
[2016-05-21] MEDS: Acetaminophen 1,000 MG in Premix Bag 1 BAG IV PRN (21:14)
[2016-05-22] MEDS: Vancomycin 1.1 GM in Sodium Chloride 0.9% 250 ML IV SCH ×2 (01:57→09:28)
[2016-05-22] MEDS: 1: AA 5%/Calcium/D15W/Lytes 1,000 ML with MVI, Adult with Vitamin K 10 ML, Chromium/Copp IV SCH ×9 (03:00→16:20)
[2016-05-22] MEDS: Meropenem 500 MG in Sodium Chloride 0.9% 50 ML IV SCH ×4 (05:07→22:09)
[2016-05-22] MEDS: Albumin 25% 50 ML IV SCH ×4 (08:14→13:20)
[2016-05-22] MEDS: Fluconazole/Normal Saline 400 MG in Premix Bag 1 BAG IV SCH (08:14)
[2016-05-22] MEDS: Acetaminophen 1,000 MG in Premix Bag 1 BAG IV PRN ×3 (09:04→22:09)
[2016-05-22] MEDS: HYDROmorphone/Normal Saline 15 MG/30 ML PCA IV PRN (10:15)
--- NOTE | 2016-05-22 10:55 | PN ---
DATE OF SERVICE: 05/22/2016 SUBJECTIVE: Carolyn is being seen along with the hospitalist. She had a temp max in the past 24 hours of 100.6 and that was this morning. She ambulated better the day before than yesterday after her delayed primary closure. She does report she continues to have quite a bit in the amount of pain but is resting in between. OBJECTIVE: HEART: Regular rate and rhythm. LUNGS: Clear. ABDOMEN: Dressing is dry and intact. LACIE drains x10 intact, draining as before. EXTREMITIES: Negative. PLAN: No new orders. Continue order and monitoring of care through Trevin Shanks MD, hospitalist. We will evaluate p.r.n. or in a.m. Gail Pedro PA-C /[id number]
--- NOTE | 2016-05-22 11:12 | PCM.CONSN ---
- General Info Date of Service: 05/22/16 Functional Status: Reports: pain controlled, ambulating - Review of Systems General: Reports: fever, weakness. Denies: chills Pulmonary: Reports: no symptoms Cardiovascular: Reports: no symptoms Gastrointestinal: Reports: Abdominal pain. Denies: Difficulty swallowing, Flatus, Nausea, Vomiting Systems Review Comment:: This patient has been hemodynamically stable, but has had mild temperature elevation and persistent elevation in white blood cell count. Cultures are growing Escherichia coli, Enterobacter, and an unusual species of enterococcus that is often vancomycin resistant. Sensitivities are not available and are being sent out for further evaluation. She has been ambulating in the halls and spending more time in the chair. - Patient Data Vitals - most recent: Last Vital Signs Temp 100.6 F 05/22/16 08:25 Pulse 100 05/22/16 10:00 Resp 22 H 05/22/16 10:00 BP 152/64 H 05/22/16 10:00 Pulse Ox 93 L 05/22/16 10:00 Weight - most recent: 133 lb 15.987 oz I&O - last 24 hours: Intake & Output 05/21/16 05/22/16 05/22/16 21:59 06:59 14:59 Intake Total Output Total 1450 Balance -1450 Lab Results last 24 hrs: Laboratory Results - last 24 hr 05/22/16 05/22/16 05/22/16 Range/Units 04:00 04:15 04:15 WBC 30.4 H* (4.5-11.0) K/uL RBC 2.95 L (3.30-5.50) M/uL Hgb 8.2 L (12.0-15.0) g/dL Hct 24.5 L (36.0-48.0) % MCV 83 (80-98) fL MCH 28 (27-31) pg MCHC 34 (32-36) % Plt Count 629 H (150-400) K/uL Add Manual Diff Yes Neutrophils % (Manual) 87 H (36-66) % Band Neutrophils % 4 L (5-11) % Lymphocytes % (Manual) 4 L (24-44) % Monocytes % (Manual) 5 (2-6) % Poikilocytosis Moderate H Anisocytosis Marked H Sodium 138 L (140-148) mmol/L Potassium 3.9 (3.6-5.2) mmol/L Chloride 107 (100-108) mmol/L Carbon Dioxide 30 (21-32) mmol/L Anion Gap 4.9 L (5.0-14.0) mmol/L BUN 16 (7-18) mg/dL Creatinine 0.5 L (0.6-1.0) mg/dL Est Cr Clr Drug Dosing 119.11 mL/min Estimated GFR (MDRD) > 60 (>60) Glucose 98 (74-106) mg/dL Calcium 7.7 L (8.5-10.1) mg/dL Phosphorus 4.0 (2.5-4.9) mg/dL Magnesium 1.8 (1.8-2.4) mg/dL Total Bilirubin 0.5 (0.2-1.0) mg/dL AST 28 (15-37) U/L ALT 80 H (12-78) U/L Alkaline Phosphatase 88 (46-116) U/L Total Protein 4.7 L (6.4-8.2) g/dL Albumin 2.2 L (3.4-5.0) g/dL Globulin 2.5 (2.3-3.5) g/dL Albumin/Globulin Ratio 0.9 L (1.2-2.2) Dereje Results last 24 hrs: Microbiology 05/19/16 13:43 Gram Stain - Final Spleen Wound Culture - Final Escherichia Coli Enterobacter Dissolvens Enterococcus Raffinosus Anaerobic Culture - Preliminary NO GROWTH AFTER 2 DAYS 05/19/16 14:17 Gram Stain - Final Abdomen - Abscess Wound Culture - Preliminary Escherichia Coli Enterobacter Dissolvens Enterococcus Raffinosus Anaerobic Culture - Preliminary NO GROWTH AFTER 2 DAYS 05/18/16 06:55 Gram Stain - Final Valentino Young Drainage Wound Culture - Final Enterobacter Dissolvens Escherichia Coli Enterococcus Raffinosus Med Orders - Current: Current Medications Acetaminophen (Tylenol) 650 mg RECTAL Q4H PRN PRN Reason: Fever Last Admin: 05/18/16 05:53 Dose: 650 mg Bacitracin (Bacitracin Oint 1 Gm) 1 dose TOP BID PRN PRN Reason: burn Last Admin: 05/12/16 20:31 Dose: 2 dose Dimethicone/Zinc Oxide (Rash Relief-Zinc Oxide Devers) 1 gm TOP ASDIRECTED PRN PRN Reason: Other Last Admin: 05/12/16 20:30 Dose: 1 bot Diphenhydramine HCl (Benadryl) 25 - 50 mg IVPUSH Q4H PRN PRN Reason: ITCHING Gentamicin Sulfate (Gentamicin) 0 mg IV Q24H [facility] Heparin Sodium (Porcine) (Heparin Lock Flush 100 Units/Ml Syringe) 500 units IVPUSH ASDIRECTED PRN PRN Reason: G[employer]IXER Last Admin: 05/20/16 12:10 Dose: 500 units Hydromorphone HCl (Dilaudid Stranding Supervisor 15 Mg In Ns 30 Ml) 0 mg IV ASDIRECTED PRN; Protocol PRN Reason: [employer] PAIN CONTROL Last Admin: 05/22/16 10:15 Dose: 15 mg Hydroxyzine HCl (Vistaril) 100 mg IM Q4H PRN PRN Reason: PAIN NOT CONTROLLED BY [employer] Last Admin: 05/21/16 10:40 Dose: 100 mg Meropenem 500 mg/ Sodium (Chloride) 50 mls @ 100 mls/hr IV Q6H [facility] Last Admin: 05/22/16 09:27 Dose: 100 mls/hr Albumin Human (Flexbumin 25%) 50 mls @ 50 mls/hr IV Q24H [facility] Stop: 05/23/16 23:00 Last Admin: 05/22/16 08:14 Dose: 50 mls/hr Albumin Human (Flexbumin 25%) 50 mls @ 50 mls/hr IV Q24H [facility] Stop: 05/23/16 23:00 Last Admin: 05/22/16 10:15 Dose: 50 mls/hr Albumin Human (Flexbumin 25%) 50 mls @ 50 mls/hr IV Q24H [facility] Stop: 05/23/16 23:00 Last Admin: 05/21/16 11:51 Dose: 50 mls/hr Albumin Human (Flexbumin 25%) 50 mls @ 50 mls/hr IV Q24H [facility] Stop: 05/23/16 23:00 Last Admin: 05/21/16 12:46 Dose: 50 mls/hr Multivitamins/Minerals 10 ml/Chromium/Copper/Manganese/Seleni/Zn 1 ml/ Amino Ac/ Electrol/Dextrose/Calcium 1,011 mls @ 82 mls/hr IV .BY DURATION [facility] Last Admin: 05/21/16 13:55 Dose: 82 mls/hr Amino Ac/Electrol/Dextrose/Calcium (Clinimix E 5/15) 1,000 mls @ 82 mls/hr IV .BY DURATION [facility] Last Admin: 05/22/16 03:00 Dose: 82 mls/hr Lactated Ringer's (Ringers, Lactated) 1,000 mls @ 0 mls/hr IV ASDIRECTED [facility] PRN Reason: KVO Fluconazole/Sodium Chloride (400 mg/ Premix) 200 mls @ 100 mls/hr IV Q24H [facility] Last Admin: 05/22/16 08:14 Dose: 100 mls/hr Acetaminophen 1,000 mg/ Premix 100 mls @ 400 mls/hr IV Q6H PRN PRN Reason: Fever Stop: 05/22/16 21:01 Last Admin: 05/22/16 09:04 Dose: 400 mls/hr Linezolid 600 mg/ Premix 300 mls @ 300 mls/hr IV Q12H [facility] Naloxone HCl (Narcan) 0.1 mg IV ASDIRECTED PRN PRN Reason: decreased respiratory rate Ondansetron HCl (Zofran) 4 mg IVPUSH Q4H PRN PRN Reason: Nausea/Vomiting Last Admin: 05/20/16 21:17 Dose: 4 mg Pantoprazole Sodium (Protonix Iv) 40 mg IV Q24H [facility] Last Admin: 05/21/16 15:53 Dose: 40 mg Discontinued Medications Acetaminophen (Tylenol) 650 mg PO Q6H [facility] Last Admin: 05/16/16 09:03 Dose: Not Given Albuterol/Ipratropium (Duoneb 3.0-0.5 Mg/3 Ml) 3 ml NEB ONETIME STA Stop: 05/13/16 19:09 Last Admin: 05/13/16 19:21 Dose: 3 ml Alvimopan (Entereg) 12 mg PO ONETIME ONE Stop: 05/09/16 08:31 Last Admin: 05/09/16 08:30 Dose: 12 mg Alvimopan (Entereg) 12 mg PO Q12H [facility] Stop: 05/16/16 09:01 Last Admin: 05/10/16 09:04 Dose: 12 mg Bisacodyl (Dulcolax) 10 mg PO BID [facility] Last Admin: 05/11/16 09:52 Dose: Not Given Bupivacaine HCl (Marcaine 0.5%) Confirm Administered Dose 50 ml .ROUTE .STK-MED ONE Stop: 05/11/16 06:49 Last Admin: 05/11/16 09:09 Dose: 32 ml Bupivacaine HCl (Marcaine 0.5%) Confirm Administered Dose 50 ml .ROUTE .STK-MED ONE Stop: 05/17/16 06:47 Last Admin: 05/17/16 08:07 Dose: 20 ml Bupivacaine HCl (Marcaine 0.5%) Confirm Administered Dose 50 ml .ROUTE .STK-MED ONE Stop: 05/19/16 14:06 Bupivacaine HCl (Marcaine 0.5%) Confirm Administered Dose 50 ml .ROUTE .STK-MED ONE Stop: 05/21/16 06:21 Last Admin: 05/21/16 08:48 Dose: 10 ml Bupivacaine HCl/Epinephrine Bitart (Marcaine 0.5%/Epinephrine 1:200,000) Confirm Administered Dose 50 ml .ROUTE .STK-MED ONE Stop: 05/19/16 14:06 Last Admin: 05/19/16 14:10 Dose: 25 ml Cefoxitin Sodium (Mefoxin) Confirm Administered Dose 2 gm .ROUTE .STK-MED ONE Stop: 05/09/16 06:55 Neomycin/Polymyxin 1 ml/ (Sodium Chloride 750 ml) 0 ml .XX ONETIME ONE Stop: 05/09/16 09:16 Last Admin: 05/09/16 13:25 Dose: Not Given Cyanocobalamin (Vitamin B12) 1,000 mcg IM ONETIME ONE Stop: 05/11/16 09:01 Last Admin: 05/11/16 09:53 Dose: 1,000 mcg Cyclobenzaprine HCl (Flexeril) 10 mg PO Q6H PRN PRN Reason: Muscle Spasm Last Admin: 05/13/16 06:22 Dose: 10 mg Dexamethasone (Dexamethasone) Confirm Administered Dose 4 mg .ROUTE .STK-MED ONE Stop: 05/09/16 08:37 Dexamethasone (Dexamethasone) Confirm Administered Dose 4 mg .ROUTE .STK-MED ONE Stop: 05/14/16 07:44 Dexamethasone (Dexamethasone) Confirm Administered Dose 4 mg .ROUTE .STK-MED ONE Stop: 05/19/16 12:14 Diatrizoate Meglum/Diatrizoate Sod (Gastrografin 37%) 30 ml PO . DIRECTED [facility] Stop: 05/13/16 19:46 Last Admin: 05/13/16 19:33 Dose: 30 mg Diphenhydramine HCl (Benadryl) 25 mg IVPUSH Q6H PRN PRN Reason: ITCHING Diphenoxylate HCl/Atropine (Lomotil 0.025-2.5 Mg) 1 tab PO ONETIME ONE Stop: 05/12/16 10:36 Last Admin: 05/12/16 10:55 Dose: 1 tab Diphenoxylate HCl/Atropine (Lomotil 0.025-2.5 Mg) 1 tab PO Q6H PRN PRN Reason: Diarrhea Edrophonium Chloride (Enlon) Confirm Administered Dose 150 mg .ROUTE .STK-MED ONE Stop: 05/14/16 10:59 Edrophonium Chloride (Enlon) Confirm Administered Dose 150 mg .ROUTE .STK-MED ONE Stop: 05/19/16 14:23 Fentanyl (Sublimaze) Confirm Administered Dose 500 mcg .ROUTE .STK-MED ONE Stop: 05/09/16 08:37 Fentanyl (Sublimaze) Confirm Administered Dose 100 mcg .ROUTE .STK-MED ONE Stop: 05/09/16 08:39 Fentanyl (Duragesic) 12 mcg TRDERM Q72H [facility] Last Admin: 05/13/16 13:15 Dose: Not Given Fentanyl (Sublimaze) Confirm Administered Dose 250 mcg .ROUTE .STK-MED ONE Stop: 05/14/16 07:44 Fentanyl (Duragesic) 25 mcg TRDERM Q72H [facility] Last Admin: 05/14/16 16:58 Dose: Not Given Fentanyl (Sublimaze) Confirm Administered Dose 100 mcg .ROUTE .STK-MED ONE Stop: 05/17/16 07:22 Fentanyl (Sublimaze) Confirm Administered Dose 250 mcg .ROUTE .STK-MED ONE Stop: 05/19/16 12:13 Fentanyl (Sublimaze) Confirm Administered Dose 100 mcg .ROUTE .STK-MED ONE Stop: 05/21/16 08:19 Furosemide (Lasix) 20 mg IVPUSH ONETIME ONE Stop: 05/13/16 18:01 Last Admin: 05/13/16 18:21 Dose: 20 mg Gabapentin (Neurontin) 300 mg PO ONETIME ONE Stop: 05/09/16 08:16 Last Admin: 05/09/16 07:53 Dose: 300 mg Gabapentin (Neurontin) 300 mg PO TID [facility] Last Admin: 05/12/16 21:54 Dose: 300 mg Glycopyrrolate () Confirm Administered Dose 1 mg .ROUTE .STK-MED ONE Stop: 05/09/16 08:37 Glycopyrrolate () Confirm Administered Dose 1 mg .ROUTE .STK-MED ONE Stop: 05/14/16 07:44 Glycopyrrolate () Confirm Administered Dose 1 mg .ROUTE .STK-MED ONE Stop: 05/19/16 12:14 Heparin Sodium (Porcine) (Heparin Sodium) 5,000 units SUBCUT Q12H [facility] Stop: 05/10/16 20:00 Last Admin: 05/10/16 06:23 Dose: 5,000 units Heparin Sodium (Porcine) (Heparin Sodium) 5,000 units SUBCUT Q12H [facility] Heparin Sodium (Porcine) (Heparin Sodium) 5,000 units SUBCUT ONETIME ONE Stop: 05/10/16 17:01 Last Admin: 05/10/16 16:45 Dose: 5,000 units Heparin Sodium (Porcine) (Heparin Lock Flush 100 Units/Ml Syringe) 500 units FLUSH .STK-MED ONE Stop: 05/14/16 10:20 Last Admin: 05/14/16 10:19 Dose: 500 units Heparin Sodium (Porcine) (Heparin Lock Flush 100 Units/Ml Syringe) Confirm Administered Dose 500 units .ROUTE .STK-MED ONE Stop: 05/15/16 17:28 Last Admin: 05/15/16 19:22 Dose: Not Given Heparin Sodium (Porcine) (Heparin Lock Flush 100 Units/Ml Syringe) Confirm Administered Dose 500 units .ROUTE .STK-MED ONE Stop: 05/19/16 21:35 Last Admin: 05/19/16 21:50 Dose: 500 units Hydromorphone HCl (Dilaudid) 2 - 4 mg PO Q4H PRN PRN Reason: PAIN Last Admin: 05/14/16 02:12 Dose: 4 mg Hydroxyzine HCl (Vistaril) 75 - 100 mg IM Q4H PRN PRN Reason: PAIN NOT CONTROLLED BY [employer] Last Admin: 05/13/16 02:48 Dose: 100 mg Dextrose/Lactated Ringer's (Dextrose 5%-Lactated Ringers) 1,000 mls @ 100 mls/ hr IV ASDIRECTED [facility] Last Admin: 05/09/16 07:55 Dose: 100 mls/hr Cefoxitin Sodium 2 gm/ Sodium (Chloride) 50 mls @ 100 mls/hr IV ONETIME ONE Stop: 05/09/16 09:44 Last Admin: 05/09/16 09:08 Dose: 100 mls/hr Fentanyl 2,500 mcg/ Sodium (Chloride) 250 mls @ 0 mls/hr EPIDUR TITRATE [facility]; Titrate PRN Reason: Protocol Last Admin: 05/10/16 09:12 Dose: 10 ml/hr, 10 mls/hr Ketamine HCl 100 mg/ Sodium (Chloride) 100 mls @ 18 mls/hr IV ASDIRECTED [facility] Stop: 05/09/16 13:00 Lactated Ringer's (Ringers, Lactated) Confirm Administered Dose 1,000 mls @ as directed .ROUTE .STK-MED ONE Stop: 05/09/16 08:37 Sodium Chloride (Normal Saline) Confirm Administered Dose 10 mls @ as directed .ROUTE .STK-MED ONE Stop: 05/09/16 08:39 Lidocaine HCl (Xylocaine-Mpf 1%) Confirm Administered Dose 2 mls @ as directed .ROUTE .STK-MED ONE Stop: 05/09/16 09:24 Lactated Ringer's (Ringers, Lactated) Confirm Administered Dose 1,000 mls @ as directed .ROUTE .STK-MED ONE Stop: 05/09/16 11:10 Lactated Ringer's (Ringers, Lactated) 500 mls @ 500 mls/hr IV .BOLUS ONE Stop: 05/09/16 14:59 Last Admin: 05/09/16 14:03 Dose: 500 mls/hr Dextrose/Lactated Ringer's (Dextrose 5%-Lactated Ringers) 1,000 mls @ 200 mls/ hr IV ASDIRECTED [facility] Stop: 05/10/16 17:59 Last Admin: 05/10/16 15:05 Dose: 200 mls/hr Multivitamins/Minerals 10 ml/Thiamine HCl 200 mg/ Chromium/Copper/Manganese/ Seleni/Zn 1 ml/ Dextrose/Lactated Ringer's 1,013 mls @ 100 mls/hr IV DAILY@ 1600 [facility] Last Admin: 05/14/16 16:33 Dose: Not Given Cefoxitin Sodium 2 gm/ Sodium (Chloride) 50 mls @ 100 mls/hr IV Q6H [facility] Last Admin: 05/12/16 03:39 Dose: 100 mls/hr Acetaminophen 1,000 mg/ Premix 100 mls @ 400 mls/hr IV Q6H [facility] Stop: 05/10/16 04:14 Last Admin: 05/10/16 04:19 Dose: 400 mls/hr Ketamine HCl 100 mg/ Sodium (Chloride) 101 mls @ as directed IV .STK-MED ONE Stop: 05/09/16 09:46 Dextrose/Lactated Ringer's (Dextrose 5%-Lactated Ringers) 1,000 mls @ 100 mls/ hr IV ASDIRECTED [facility] Last Admin: 05/13/16 02:59 Dose: 100 mls/hr Magnesium Sulfate 2 gm/ Sodium (Chloride) 54 mls @ 27 mls/hr IV ONETIME ONE Stop: 05/13/16 11:59 Last Admin: 05/13/16 10:01 Dose: 27 mls/hr Magnesium Sulfate 2 gm/ Premix 50 mls @ 25 mls/hr IV Q6H [facility] Stop: 05/15/16 05:59 Last Admin: 05/16/16 09:03 Dose: Not Given Potassium Phosphate 20 mmole/ (Sodium Chloride) 256.6667 mls @ 85 mls/hr IV Q3H [facility] Stop: 05/13/16 18:59 Last Admin: 05/13/16 19:49 Dose: 85 mls/hr Dextrose/Lactated Ringer's (Dextrose 5%-Lactated Ringers) 1,000 mls @ 80 mls/ hr IV ASDIRECTED [facility] Stop: 05/14/16 14:29 Last Admin: 05/13/16 18:20 Dose: 25 mls/hr Meropenem 500 mg/ Sodium (Chloride) 50 mls @ 100 mls/hr IV ONETIME ONE Stop: 05/13/16 18:29 Last Admin: 05/13/16 18:28 Dose: 100 mls/hr Sodium Chloride (Normal Saline) 70 mls @ 3 mls/sec IV ASDIRECTED [facility] Last Admin: 05/13/16 19:22 Dose: 3 mls/sec Aztreonam 1 gm/ Sodium (Chloride) 50 mls @ 100 mls/hr IV Q8HR [facility] Last Admin: 05/14/16 05:39 Dose: 100 mls/hr Aztreonam/Dextrose 1 gm/ (Premix) 50 mls @ 100 mls/hr IV Q8H [facility] Last Admin: 05/21/16 14:02 Dose: 100 mls/hr Sodium Chloride (Normal Saline) Confirm Administered Dose 10 mls @ as directed .ROUTE .[facility] ONE Stop: 05/14/16 08:52 Sodium Chloride (Normal Saline) Confirm Administered Dose 10 mls @ as directed .ROUTE .[facility] ONE Stop: 05/14/16 09:28 Lactated Ringer's (Ringers, Lactated) Confirm Administered Dose 1,000 mls @ as directed .ROUTE .[facility] ONE Stop: 05/14/16 09:34 Multivitamins/Minerals 10 ml/Chromium/Copper/Manganese/Seleni/Zn 1 ml/ Amino Ac/ Electrol/Dextrose/Calcium 1,011 mls @ 82 mls/hr IV .BY DURATION [facility] Stop: 05/16/16 10:59 Last Admin: 05/15/16 15:31 Dose: 82 mls/hr Amino Ac/Electrol/Dextrose/Calcium (Clinimix E 07/25) 1,000 mls @ 82 mls/hr IV .BY DURATION [facility] Stop: 05/16/16 10:59 Last Admin: 05/16/16 03:41 Dose: 82 mls/hr Lactated Ringer's (Ringers, Lactated) 1,000 mls @ 100 mls/hr IV ASDIRECTED [facility] Last Admin: 05/20/16 03:16 Dose: 100 mls/hr Acetaminophen 1,000 mg/ Premix 100 mls @ 400 mls/hr IV Q6H [facility] Stop: 05/15/16 10:14 Last Admin: 05/15/16 10:12 Dose: 400 mls/hr Potassium Phosphate 15 mmole/Lidocaine HCl 2 ml/ Sodium Chloride 157 mls @ 53 mls/hr IV Q3H [facility] Stop: 05/15/16 15:58 Last Admin: 05/15/16 13:04 Dose: 53 mls/hr Potassium Phosphate 15 mmole/ (Sodium Chloride) 155 mls @ 55 mls/hr IV Q3H [facility] Stop: 05/16/16 16:50 Last Admin: 05/16/16 17:27 Dose: 55 mls/hr Levofloxacin/Dextrose 750 mg/ (Premix) 150 mls @ 100 mls/hr IV Q24H [facility] Last Admin: 05/21/16 11:17 Dose: 100 mls/hr Vancomycin HCl 1.3 gm/ Sodium (Chloride) 250 mls @ 167 mls/hr IV ONETIME ONE Stop: 05/17/16 14:29 Last Admin: 05/17/16 13:18 Dose: 167 mls/hr Vancomycin HCl 1 gm/ Sodium (Chloride) 250 mls @ 167 mls/hr IV Q12H [facility] Last Admin: 05/19/16 00:30 Dose: 167 mls/hr Sodium Chloride (Normal Saline) 70 mls @ 3 mls/sec IV ASDIRECTED [facility] Stop: 05/19/16 08:30 Lactated Ringer's (Ringers, Lactated) Confirm Administered Dose 1,000 mls @ as directed .ROUTE .STK-MED ONE Stop: 05/19/16 13:23 Sodium Chloride (Normal Saline) Confirm Administered Dose 10 mls @ as directed .ROUTE .STK-MED ONE Stop: 05/19/16 13:31 Vancomycin HCl 1 gm/ Sodium (Chloride) 250 mls @ 167 mls/hr IV Q8H [facility] Last Admin: 05/21/16 00:14 Dose: 167 mls/hr Vancomycin HCl 1.1 gm/ Sodium (Chloride) 250 mls @ 167 mls/hr IV Q8H [facility] Stop: 05/21/16 12:00 Last Admin: 05/21/16 09:50 Dose: 167 mls/hr Vancomycin HCl 1.1 gm/ Sodium (Chloride) 250 mls @ 167 mls/hr IV Q8H [facility] Last Admin: 05/22/16 09:28 Dose: 167 mls/hr Ibuprofen (Motrin) 600 mg PO Q6H [facility] Last Admin: 05/13/16 05:24 Dose: Not Given Inulin (Fiber Choice) 4.5 gm PO BID [facility] Last Admin: 05/16/16 09:03 Dose: Not Given Iohexol (Omnipaque-300) 50 ml PO .ASDIRECTED [facility] Last Admin: 05/10/16 03:46 Dose: 50 ml Iohexol (Omnipaque-300) 10 ml PO . DIRECTED PRN PRN Reason: RADIOLOGY EXAM Stop: 05/20/16 08:30 Last Admin: 05/19/16 07:44 Dose: 10 ml Iopamidol (Isovue-300 (61%)) 100 ml IV . DIRECTED [facility] Last Admin: 05/13/16 19:22 Dose: 90 ml Iopamidol (Isovue-300 (61%)) 90 ml IV . DIRECTED PRN PRN Reason: RADIOLOGY EXAM Stop: 05/19/16 08:30 Last Admin: 05/19/16 07:44 Dose: 90 ml Ketamine HCl (Ketalar) 30 mg IV ASDIRECTED [facility] Stop: 05/09/16 11:00 Ketamine HCl (Ketalar) 30 mg IV .STK-MED ONE Stop: 05/09/16 09:46 Ketamine HCl (Ketalar) Confirm Administered Dose 500 mg .ROUTE .STK-MED ONE Stop: 05/14/16 08:51 Lactobacillus Rhamnosus (Culturelle) 2 cap PO BID [facility] Last Admin: 05/16/16 09:04 Dose: Not Given Lidocaine/Epinephrine (Xylocaine 1% With Epinephrine 1:100,000) Confirm Administered Dose 50 ml .ROUTE .STK-MED ONE Stop: 05/11/16 06:49 Last Admin: 05/11/16 09:09 Dose: 32 ml Lidocaine/Epinephrine (Xylocaine 1% With Epinephrine 1:100,000) Confirm Administered Dose 50 ml .ROUTE .STK-MED ONE Stop: 05/17/16 06:47 Last Admin: 05/17/16 08:07 Dose: 20 ml Lidocaine/Epinephrine (Xylocaine 1% With Epinephrine 1:100,000) Confirm Administered Dose 50 ml .ROUTE .STK-MED ONE Stop: 05/21/16 06:21 Last Admin: 05/21/16 08:48 Dose: 10 ml Meperidine HCl (Demerol) 50 mg IM ASDIRECTED PRN PRN Reason: PAIN Stop: 05/10/16 14:45 Meropenem (Merrem) Confirm Administered Dose 500 mg .ROUTE .STK-MED ONE Stop: 05/09/16 08:14 Last Admin: 05/09/16 10:24 Dose: 500 mg Meropenem (Merrem) Confirm Administered Dose 500 mg .ROUTE .STK-MED ONE Stop: 05/11/16 06:49 Last Admin: 05/11/16 09:10 Dose: 500 mg Meropenem (Merrem) Confirm Administered Dose 500 mg .ROUTE .STK-MED ONE Stop: 05/14/16 07:31 Last Admin: 05/14/16 10:19 Dose: 500 mg Meropenem (Merrem) Confirm Administered Dose 500 mg .ROUTE .ST-MED ONE Stop: 05/14/16 10:03 Last Admin: 05/14/16 10:19 Dose: 500 mg Meropenem (Merrem) Confirm Administered Dose 500 mg .ROUTE .ST-MED ONE Stop: 05/17/16 06:46 Last Admin: 05/17/16 08:12 Dose: 500 mg Meropenem (Merrem) Confirm Administered Dose 500 mg .ROUTE .ST-MED ONE Stop: 05/19/16 12:10 Last Admin: 05/19/16 13:30 Dose: 500 mg Meropenem (Merrem) Confirm Administered Dose 500 mg .ROUTE .ST-MED ONE Stop: 05/19/16 13:31 Last Admin: 05/19/16 14:25 Dose: 500 mg Meropenem (Merrem) Confirm Administered Dose 500 mg .ROUTE .ST-MED ONE Stop: 05/21/16 06:20 Last Admin: 05/21/16 08:51 Dose: 500 mg Metoclopramide HCl (Reglan) 10 mg IV Q6H [facility] Last Admin: 05/14/16 08:03 Dose: 10 mg Midazolam HCl (Versed 1 Mg/Ml) Confirm Administered Dose 2 mg .ROUTE .STK-MED ONE Stop: 05/14/16 07:44 Midazolam HCl (Versed 1 Mg/Ml) Confirm Administered Dose 2 mg .ROUTE .ST-MED ONE Stop: 05/17/16 07:22 Midazolam HCl (Versed 1 Mg/Ml) Confirm Administered Dose 2 mg .ROUTE .ST-MED ONE Stop: 05/19/16 12:13 Midazolam HCl (Versed 1 Mg/Ml) Confirm Administered Dose 2 mg .ROUTE .STK-MED ONE Stop: 05/21/16 08:19 Naloxone HCl (Narcan) 0.4 mg IV ASDIRECTED PRN PRN Reason: ITCHING Neostigmine Methylsulfate (Neostigmine) Confirm Administered Dose 5 mg .ROUTE .STK-MED ONE Stop: 05/09/16 08:37 Neostigmine Methylsulfate (Neostigmine) Confirm Administered Dose 5 mg .ROUTE .STK-MED ONE Stop: 05/14/16 07:44 Neostigmine Methylsulfate (Neostigmine) Confirm Administered Dose 5 mg .ROUTE .STK-MED ONE Stop: 05/19/16 12:14 Scopolamine Patch (Check) 1 each TOP DAILY [facility] Last Admin: 05/16/16 09:03 Dose: Not Given Check Fentanyl Patch (Daily) 1 each TOP DAILY [facility] Last Admin: 05/15/16 09:06 Dose: Not Given Ondansetron HCl (Zofran) Confirm Administered Dose 4 mg .ROUTE .STK-MED ONE Stop: 05/09/16 08:37 Ondansetron HCl (Zofran) Confirm Administered Dose 4 mg .ROUTE .STK-MED ONE Stop: 05/14/16 07:44 Ondansetron HCl (Zofran) Confirm Administered Dose 4 mg .ROUTE .STK-MED ONE Stop: 05/19/16 12:14 Pantoprazole Sodium (Protonix Iv) 40 mg IVPUSH Q24H [facility] Last Admin: 05/11/16 16:53 Dose: 40 mg Pantoprazole Sodium (Protonix) 40 mg PO Q24H [facility] Last Admin: 05/13/16 16:59 Dose: 40 mg Phenylephrine HCl (Yan-Synephrine) Confirm Administered Dose 10 mg .ROUTE .STK- MED ONE Stop: 05/14/16 09:27 Propofol (Diprivan 20 Ml) Confirm Administered Dose 200 mg .ROUTE .STK-MED ONE Stop: 05/09/16 08:37 Propofol (Diprivan 20 Ml) Confirm Administered Dose 200 mg .ROUTE .STK-MED ONE Stop: 05/11/16 07:00 Propofol (Diprivan 20 Ml) Confirm Administered Dose 200 mg .ROUTE .STK-MED ONE Stop: 05/14/16 07:44 Propofol (Diprivan 20 Ml) Confirm Administered Dose 200 mg .ROUTE .STK-MED ONE Stop: 05/17/16 07:22 Propofol (Diprivan 20 Ml) Confirm Administered Dose 200 mg .ROUTE .STK-MED ONE Stop: 05/19/16 12:14 Propofol (Diprivan 20 Ml) Confirm Administered Dose 200 mg .ROUTE .STK-MED ONE Stop: 05/21/16 08:19 [place] (Zemuron) Confirm Administered Dose 100 mg .ROUTE .STK-MED ONE Stop: 05/09/16 08:37 [place] (Zemuron) Confirm Administered Dose 50 mg .ROUTE .STK-MED ONE Stop: 05/14/16 07:[address] [place] [place] (Zemuron) Confirm Administered Dose 50 mg .ROUTE .STK-MED ONE Stop: 05/19/16 12:14 Scopolamine (Transderm-Scop) 1.5 mg TOP Q72H [facility] Stop: 05/12/16 06:00 Last Admin: 05/09/16 07:53 Dose: 1.5 mg Scopolamine (Transderm-Scop) Confirm Administered Dose 1.5 mg .ROUTE .STK-MED ONE Stop: 05/09/16 08:37 Scopolamine (Transderm-Scop) 1.5 mg TOP ASDIRECTED [facility] Stop: 05/12/16 16:00 Scopolamine (Transderm-Scop) 1.5 mg TOP Q72H [facility] Last Admin: 05/12/16 09:17 Dose: 1.5 mg Sodium Chloride (Saline Flush) 10 ml FLUSH ONETIME ONE Stop: 05/13/16 18:10 Last Admin: 05/13/16 19:22 Dose: 10 ml Succinylcholine Chloride (Succinylcholine In Ns Pf) Confirm Administered Dose 200 mg .ROUTE .STK-MED ONE Stop: 05/09/16 08:37 Succinylcholine Chloride (Succinylcholine In Ns Pf) Confirm Administered Dose 200 mg .ROUTE .STK-MED ONE Stop: 05/14/16 07:44 Succinylcholine Chloride (Succinylcholine In Ns Pf) Confirm Administered Dose 200 mg .ROUTE .STK-MED ONE Stop: 05/19/16 12:14 Vancomycin HCl (Vancomycin) 1 gm IV .PHARMACY TO DOSE [facility] - Exam Quality Assessment: supplemental oxygen, urine catheter, DVT prophylaxis Neck: supple Lungs: Clear to auscultation, Normal respiratory effort Cardiovascular: regular rate, regular rhythm, no murmurs Abdomen: soft, no distension, tenderness, abnormal bowel sounds. No: rigidity, rebound, guarding Extremities: no edema Skin: warm, dry, intact Consult PN Assessment/Plan Procedures: Procedures ASSAY OF LACTIC ACID (03/04/16) ASSAY OF MAGNESIUM (04/07/16) ASSAY OF PHOSPHORUS (04/07/16) ASSAY THYROID STIM HORMONE (10/08/15) BLOOD TYPING SEROLOGIC ABO (04/14/15) BLOOD TYPING SEROLOGIC RH(D) (04/14/15) C-REACTIVE PROTEIN (04/07/16) COMPLETE CBC AUTOMATED (04/07/16) COMPLETE CBC W/AUTO DIFF WBC (04/07/16) COMPREHEN METABOLIC PANEL (04/07/16) CT ABD & PELV W/CONTRAST (03/04/16) CULTURE SCREEN ONLY (11/10/15) ELECTROCARDIOGRAM TRACING (04/14/15) EMERGENCY DEPT VISIT (04/07/16) HYDRATE IV INFUSION ADD-ON (04/07/16) MEASURE BLOOD OXYGEN LEVEL (01/01/16) METABOLIC PANEL TOTAL CA (03/04/16) PT EVALUATION (11/10/15) RBC ANTIBODY SCREEN (04/14/15) ROUTINE VENIPUNCTURE (04/07/16) SPECIAL STAINS GROUP 2 (04/14/15) THER/PROPH/DIAG INJ IV PUSH (04/07/16) THER/PROPH/DIAG IV INF ADDON (03/04/16) THER/PROPH/DIAG IV INF INIT (03/04/16) THERAPEUTIC ACTIVITIES (11/10/15) TISSUE EXAM BY PATHOLOGIST (01/01/16) TISSUE EXAM BY PATHOLOGIST (01/01/16) TISSUE EXAM BY PATHOLOGIST (04/14/15) TISSUE EXAM BY PATHOLOGIST (04/14/15) TX/PRO/DX INJ NEW DRUG ADDON (04/07/16) URINALYSIS AUTO W/SCOPE (04/07/16) X-RAY EXAM OF ABDOMEN (04/07/16) X-RAY EXAM SERIES ABDOMEN (04/07/16) X-RAY UPPER GI DELAY W/O KUB (03/04/16) X-RAY UPPER GI&SMALL INTEST (04/07/16) Problem List Initiated/Reviewed/Updated: Yes My Orders last 24 hours: My Active Orders 05/22/16 11:00 Linezolid [Zyvox] 600 mg Premix Bag 1 bag IV Q12H 05/22/16 11:15 Gentamicin See Dose Instructions IV Q24H 05/23/16 05:00 CBC WITH AUTO DIFF [HEME] Timed COMPREHENSIVE METABOLIC PN,CMP [CHEM] Timed MAGNESIUM [CHEM] Timed Plan: Assessment and Plan - Abdominal abscess with peritonitis secondary to JJ leak - status post exploratory laparotomy 3/4. Because of persistent low-grade temperature elevation and slow increase in white count CT scan was obtained on showing further abscess development in the region of the spleen. 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 Stable status post delayed primary closure yesterday. Cultures from wound and drains are growing Escherichia coli, Enterobacter, and relatively rare species of enterococcus it is often resistant to vancomycin -Continue Zosyn -Discontinue vancomycin, Azactam, and levofloxacin. -Start Zyvox and gentamicin IV -Followup cultures, enterococcus is being sent to reference lab for sensitivities -additional postop cares per surgical team Recurrent fever-likely secondary to abdominal source. There was question of possible infiltrate on chest x-ray but she's had no further symptoms of respiratory tract infection Mild elevation in transaminase levels- bilirubin is within normal range -Labs in the morning Delirium - resolved
[2016-05-22] MEDS ORDERED: Gentamicin 40 MG/ML 2 ML Vial IV SCH (11:15)
[2016-05-22] MEDS: Linezolid 600 MG in Premix Bag 1 BAG IV SCH ×2 (12:00→23:12)
[2016-05-22] MEDS ORDERED: SODIUM CHLORIDE 0.9% IV SCH (14:00)
[2016-05-22] MEDS ORDERED: GENTAMICIN IV SCH (14:00)
[2016-05-22] MEDS: Pantoprazole 40 MG Vial IV SCH (16:02)
[2016-05-23] MEDS: Meropenem 500 MG in Sodium Chloride 0.9% 50 ML IV SCH ×2 (03:51→10:20)
[2016-05-23] MEDS: 1: AA 5%/Calcium/D15W/Lytes 1,000 ML with MVI, Adult with Vitamin K 10 ML, Chromium/Copp IV SCH ×6 (03:51→16:21)
[2016-05-23] MEDS: Fluconazole/Normal Saline 400 MG in Premix Bag 1 BAG IV SCH (08:11)
--- NOTE | 2016-05-23 08:19 | OR ---
DATE OF PROCEDURE: 05/21/2016 PREOPERATIVE DIAGNOSIS: Open abdominal incision. POSTOPERATIVE DIAGNOSIS: Open abdominal incision. PROCEDURE: Delayed primary closure of open abdominal incision. ANESTHESIA: Local and IV sedation. INDICATION FOR PROCEDURE: The patient is a 55-year-old female, who had a laparotomy with gross contamination; therefore, skin and subcutaneous tissues were left open to avoid wound infection. The patient is now to have delayed primary closure. Risks including bleeding and infection were reviewed with the patient by Kit Duke MD. DETAILS OF PROCEDURE: Carolyn Hanks is a 55-year-old female, who was taken to the operating room and placed in the supine position. IV sedation was administered after which the operative dressing was taken down. The wound was inspected and found to be clean. The incision was prepped and draped, and anesthetized with 1% lidocaine mixed with Marcaine and incision was irrigated with meropenem containing saline solution. The incision was closed with 3-0 Vicryl stitch deep and murtaza were used to close the skin. Dressings were applied, and the patient was taken to recovery room in satisfactory condition. Kit Duke MD, was present in room and supervised procedure. Gail Pedro PA-C /[id number]
--- NOTE | 2016-05-23 08:55 | PN ---
DATE OF SERVICE: 05/23/2016 SUBJECTIVE: Carolyn has walked better yesterday. She has had an increased amount of gas. Her temp max was 100.2. She does get good pain control with IV Tylenol. Recent labs this morning revealed hemoglobin of 7.8. WBC was 30.4 yesterday, it has decreased to 27.8. Her platelet is elevated at 797. Potassium was 4.1, glucose 113. Total output was 2600. REVIEW OF SYSTEMS: Remainder of review of systems negative for any pertinent positives and negatives. OBJECTIVE: GENERAL: Carolyn Hanks is a 55-year-old female, quiet. SKIN: Warm and dry. Color pale. VITAL SIGNS: TPR is 100.2, 87, 17. Blood pressure 127/65. HEENT: Negative. NECK: Supple. HEART: Regular rate and rhythm. LUNGS: Reveal decreased breath sounds but they are negative. ABDOMEN: Dressings are dry and intact. Her midline drain incision is feeling with air. She does have 10 LACIE drains put in, they are labeled A to J and they have put out 10, 13, 13, 30, 35, 20, 15, 20, 45, and 55 respectively. Abdominal binder otherwise has been on. EXTREMITIES: Without peripheral edema. ASSESSMENT: 1. Exploratory laparotomy with total abdominal colectomy with ileal rectal anastomosis, revision of small bowel component of the [place]-en-Y gastric bypass, umbilectomy, ablation of focal area of pelvic endometriosis, left pelvic sidewall, and placement of Interceed mesh to displace small bowel from pelvic and abdominal wall to limit recurrent adhesion formation for diffuse megacolon associated with slow transit constipation refractory to medical management, contracted chronicle painful umbilicus. Florid inflammatory adhesions of distal [place] limb and jejunostomy and focal area of pelvic endometriosis. Date of surgery 05/09/2016. 2. Delayed primary closure of open abdominal incision on 05/11/2016 and exploratory laparotomy with central venous catheter insertion on 05/13/2016. On 05/14/2016, she had insertion of a left subclavian vein triple lumen, drainage of intraabdominal abscess, and irrigation of diffuse peritonitis, small bowel resection, and separate jejunostomy to re-establish the [place]-en-Y small bowel anatomy for leak at the jejunostomy with focal abscess in the left upper quadrant and diffuse peritonitis involving the lower two-thirds of the abdomen and pelvis and limited peripheral venous access. Date of that surgery is 05/14/2016. 3. Delayed primary closure on 05/17/2016. 4. Exploratory laparotomy with splenic abscess and splenectomy on 05/19/2016 and delayed primary closure on 05/21/2016. PLAN: Orders to be written per Eduard Bedolla MD, hospitalist. Continue good pulmonary toilet. We will evaluate p.r.n. or in a.m. Gail Pedro PA-C /[id number]
--- NOTE | 2016-05-23 09:03 | PN ---
DATE OF SERVICE: 05/21/2016 SUBJECTIVE: The patient has been afebrile over the last 24 hours. Vital signs remains stable with heart rates in the 80s, O2 sats on 2 L nasal cannula are in the 96-100%. NG tube has been scant only around 50 mL overnight and I think GI tract motility must be resuming so we will discontinue the NG tube at the time of the primary closure today. Otherwise, I will continue the TPN and albumin supplementation. Some sensitivities will likely be available on the cultured organisms earlier this week and Dr. Shanks will review those to adjust some antibiotics as needed. Otherwise, will maximize activity and work with pulmonary toilet. When she does develop a bowel movement postoperatively, we will need to at that time check a stool for C. difficile as she will likely have some frequent loose bowel movements and we would want to start her on some probiotics as well as probably some agents such as Imodium to slow things down. The patient had a delayed primary closure in the mid low subcostal incision today and tolerated that procedure well. Kit Duke MD /[id number]
[2016-05-23] MEDS: Acetaminophen 1,000 MG in Premix Bag 1 BAG IV PRN ×3 (09:08→21:13)
[2016-05-23] MEDS: Albumin 25% 50 ML IV SCH ×4 (09:14→12:05)
--- NOTE | 2016-05-23 10:15 | OR ---
DATE OF PROCEDURE: 05/19/2016 PREOPERATIVE DIAGNOSIS: Probable infected fluid collection in the perisplenic left subphrenic area. POSTOPERATIVE DIAGNOSES: 1. 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 2. Thin intra-abdominal abscess underlying anterior abdominal wall. OPERATIVE PROCEDURES: Exploratory laparotomy with: 1. Drainage of left subphrenic abscess (62081). 2. Splenectomy (99556). 3. Drainage of abscess underlying anterior abdominal wall (06198). ANESTHESIA: General. CLOTHING CUTTER: Gail Pedro PA-C INDICATIONS: The patient has a persistent smoldering course with persistent fevers and elevated white count and general failure to significantly improve. CT scan was obtained this morning which shows a large fluid collection with some air fluid levels in the left subphrenic and perisplenic area. Given this, plan is to proceed with laparotomy with a drainage of this area along with inspection of the abdomen to the extent feasible. A left subcostal incision will be used as this will likely allow a direct approach into the area of concern without reopening the midline incision. Potential risks of the procedure including bleeding, infection, injury to underlying viscera, possible recurrent or persistent infections after the procedure has been completed, along with the possibility of cardiopulmonary, septic, or hemorrhagic complications leading to were all discussed, and the patient wishes to proceed. DETAILS OF PROCEDURE: The patient was taken to the operating room and placed in supine position. After general endotracheal anesthesia was induced, the abdomen was prepped and draped and a left subcostal incision was made and carried down through the skin and subcutaneous tissue through the full-thickness of the abdominal wall. Upon entering the peritoneal cavity, as one dissected underneath the abdominal wall superiorly, the abscess cavity was easily entered and this was then broken up. There was some fibrinous type material present along in the dependent portion of the cavity, lateral to the spleen. As one evacuated this area, cultures were obtained and upon palpitation and visualization of the spleen, there was noted to be, in its mid-pole, a splenic abscess with a soft area there that had some creamy purulent material within it. Given this, it was felt that a splenectomy was warranted as well. The spleen was freed up from its superior, lateral, and inferior attachments as one mobilized the spleen upward, at the level of the abscess the spleen actually bisected. The spleen was then excised by means of a series of LAUREL staple lines going across the hilum. The spleen specimen was then delivered from the field. The area was then packed and inspected and somewhat surprisingly, it was very hemostatic, i.e. no obvious bleeding was present, after a brief period of packing. The tail of the pancreas was then palpated and did not appear to be injured. The area medial and inferior to the incision was then inspected and in fact the plane underneath the entire abdominal wall almost could be established. There was a thin purulence present in that area. Cultures of this were also obtained. At that point, all of the areas of involvement were irrigated with meropenem-containing saline solution until return was clear. The 5 additional drains were placed to open the splenic fossa area and 3 across the anterior abdominal wall region and at that point, no further problems were noted. It was notable that the underlying gastrojejunostomy was remaining intact. The subcostal incision was then closed with 2 layers of #2 Vicryl stitch, and the skin and subcutaneous tissue were obviously very high risk for wound infection if the primary closure was undertaken. Given this, the wound was packed open for planned delayed primary closure in 48 hours. There were no evident complications. Physician assistant front office manager, Gail Pedro, played an essential role in assisting in this case, helping to position the patient, retract structures as needed, as well as suturing and cutting sutures would indicate. Her presence improved the patient's safety and decreased operative time. Kit Duke MD /[id number]
--- NOTE | 2016-05-23 10:23 | PCM.CONSN ---
- General Info Date of Service: 05/23/16 Functional Status: Reports: pain controlled, ambulating - Review of Systems General: Reports: fever Pulmonary: Reports: shortness of breath Gastrointestinal: Reports: Abdominal pain Systems Review Comment:: no acute events overnight. Feels a little bit short of breath this morning but does not have much of a cough. Low-grade temperature elevations morning. Heart rate has risen slightly to mildly tachycardic range. Moderate to moderately severe abdominal pain but this has been getting a little bit better each day. White blood cell count slightly improved today. Not passing much in the way of gas. Tolerating ice chips. - Patient Data Vitals - most recent: Last Vital Signs Temp 38.2 C H 05/23/16 08:00 Pulse 80 05/22/16 18:00 Resp 22 H 05/23/16 08:00 BP 135/65 05/23/16 08:00 Pulse Ox 98 05/23/16 08:00 Weight - most recent: 60.781 kg I&O - last 24 hours: Intake & Output 05/22/16 05/23/16 05/23/16 22:59 06:59 14:59 Intake Total 1762 Output Total 2645 1691 Balance -2645 71 Lab Results last 24 hrs: Laboratory Results - last 24 hr 05/17/16 05/23/16 05/23/16 Range/Units 04:00 00:57 05:59 WBC 27.8 H (4.5-11.0) K/uL RBC 2.83 L (3.30-5.50) M/uL Hgb 7.8 L (12.0-15.0) g/dL Hct 23.7 L (36.0-48.0) % MCV 84 (80-98) fL MCH 28 (27-31) pg MCHC 33 (32-36) % Plt Count 797 H (150-400) K/uL Neut % (Auto) 91 H (36-66) % Lymph % (Auto) 3 L (24-44) % [place] % (Auto) 5 (2-6) % Eos % (Auto) 1 L (2-4) % Baso % (Auto) 0 (0-1) % Sodium (140-148) mmol/L Potassium (3.6-5.2) mmol/L Chloride (100-108) mmol/L Carbon Dioxide (21-32) mmol/L Anion Gap (5.0-14.0) mmol/L BUN (7-18) mg/dL Creatinine (0.6-1.0) mg/dL Est Cr Clr Drug Dosing mL/min Estimated GFR (MDRD) (>60) Glucose (74-106) mg/dL Calcium (8.5-10.1) mg/dL Magnesium (1.8-2.4) mg/dL Total Bilirubin (0.2-1.0) mg/dL AST (15-37) U/L ALT (12-78) U/L Alkaline Phosphatase (46-116) U/L Total Protein (6.4-8.2) g/dL Albumin (3.4-5.0) g/dL Globulin (2.3-3.5) g/dL Albumin/Globulin Ratio (1.2-2.2) Random Gentamicin 1.9 (0.0-12.0) ug/mL Blood Type A POSITIVE Gel Antibody Screen Negative Crossmatch See Detail 05/23/16 Range/Units 05:59 WBC (4.5-11.0) K/uL RBC (3.30-5.50) M/uL Hgb (12.0-15.0) g/dL Hct (36.0-48.0) % MCV (80-98) fL MCH (27-31) pg MCHC (32-36) % Plt Count (150-400) K/uL Neut % (Auto) (36-66) % Lymph % (Auto) (24-44) % [place] % (Auto) (2-6) % Eos % (Auto) (2-4) % Baso % (Auto) (0-1) % Sodium 139 L (140-148) mmol/L Potassium 4.1 (3.6-5.2) mmol/L Chloride 106 (100-108) mmol/L Carbon Dioxide 28 (21-32) mmol/L Anion Gap 9.1 (5.0-14.0) mmol/L BUN 15 (7-18) mg/dL Creatinine 0.4 L (0.6-1.0) mg/dL Est Cr Clr Drug Dosing 148.89 mL/min Estimated GFR (MDRD) > 60 (>60) Glucose 113 H (74-106) mg/dL Calcium 8.0 L (8.5-10.1) mg/dL Magnesium 1.9 (1.8-2.4) mg/dL Total Bilirubin 0.4 (0.2-1.0) mg/dL AST 16 (15-37) U/L ALT 48 (12-78) U/L Alkaline Phosphatase 72 (46-116) U/L Total Protein 5.4 L (6.4-8.2) g/dL Albumin 2.5 L (3.4-5.0) g/dL Globulin 2.9 (2.3-3.5) g/dL Albumin/Globulin Ratio 0.9 L (1.2-2.2) Random Gentamicin (0.0-12.0) ug/mL Blood Type Gel Antibody Screen Crossmatch Dereje Results last 24 hrs: Microbiology 05/19/16 14:17 Gram Stain - Final Abdomen - Abscess Wound Culture - Preliminary Escherichia Coli Enterobacter Dissolvens Enterococcus Raffinosus Anaerobic Culture - Final NO GROWTH AFTER 3 DAYS 05/19/16 13:43 Gram Stain - Final Spleen Wound Culture - Final Escherichia Coli Enterobacter Dissolvens Enterococcus Raffinosus Anaerobic Culture - Final NO GROWTH AFTER 3 DAYS 05/18/16 06:55 Gram Stain - Final Valentino Young Drainage Wound Culture - Final Enterobacter Dissolvens Escherichia Coli Enterococcus Raffinosus Med Orders - Current: Current Medications Acetaminophen (Tylenol) 650 mg RECTAL Q4H PRN PRN Reason: Fever Last Admin: 05/18/16 05:53 Dose: 650 mg Bacitracin (Bacitracin Oint 1 Gm) 1 dose TOP BID PRN PRN Reason: burn Last Admin: 05/12/16 20:31 Dose: 2 dose Dimethicone/Zinc Oxide (Rash Relief-Zinc Oxide Guys) 1 gm TOP ASDIRECTED PRN PRN Reason: Other Last Admin: 05/12/16 20:30 Dose: 1 bot Diphenhydramine HCl (Benadryl) 25 - 50 mg IVPUSH Q4H PRN PRN Reason: ITCHING Heparin Sodium (Porcine) (Heparin Lock Flush 100 Units/Ml Syringe) 500 units IVPUSH ASDIRECTED PRN PRN Reason: NANNY BABYSITTER Last Admin: 05/20/16 12:10 Dose: 500 units Hydromorphone HCl (Dilaudid Automat Watcher 15 Mg In Ns 30 Ml) 0 mg IV ASDIRECTED PRN; Protocol PRN Reason: OBSTETRICS SPECIALIST PAIN CONTROL Last Admin: 05/22/16 10:15 Dose: 15 mg Hydroxyzine HCl (Vistaril) 100 mg IM Q4H PRN PRN Reason: PAIN NOT CONTROLLED BY OBSTETRICS SPECIALIST Last Admin: 05/21/16 10:40 Dose: 100 mg Albumin Human (Flexbumin 25%) 50 mls @ 50 mls/hr IV Q24H [facility] Stop: 05/23/16 23:00 Last Admin: 05/23/16 09:14 Dose: 50 mls/hr Albumin Human (Flexbumin 25%) 50 mls @ 50 mls/hr IV Q24H [facility] Stop: 05/23/16 23:00 Last Admin: 05/23/16 10:19 Dose: 50 mls/hr Albumin Human (Flexbumin 25%) 50 mls @ 50 mls/hr IV Q24H [facility] Stop: 05/23/16 23:00 Last Admin: 05/22/16 11:43 Dose: 50 mls/hr Albumin Human (Flexbumin 25%) 50 mls @ 50 mls/hr IV Q24H [facility] Stop: 05/23/16 23:00 Last Admin: 05/22/16 13:20 Dose: 50 mls/hr Multivitamins/Minerals 10 ml/Chromium/Copper/Manganese/Seleni/Zn 1 ml/ Amino Ac/ Electrol/Dextrose/Calcium 1,011 mls @ 82 mls/hr IV .BY DURATION [facility] Last Admin: 05/22/16 16:20 Dose: 82 mls/hr Amino Ac/Electrol/Dextrose/Calcium (Clinimix E 5/15) 1,000 mls @ 82 mls/hr IV .BY DURATION [facility] Last Admin: 05/23/16 03:51 Dose: 82 mls/hr Lactated Ringer's (Ringers, Lactated) 1,000 mls @ 0 mls/hr IV ASDIRECTED [facility] PRN Reason: KVO Linezolid 600 mg/ Premix 300 mls @ 300 mls/hr IV Q12H [facility] Last Admin: 05/22/16 23:12 Dose: 300 mls/hr Acetaminophen 1,000 mg/ Premix 100 mls @ 400 mls/hr IV Q6H PRN PRN Reason: Pain/Fever Stop: 05/23/16 22:01 Last Admin: 05/23/16 09:08 Dose: 400 mls/hr Gentamicin Sulfate 420 mg/ (Sodium Chloride) 160.5 mls @ 107 mls/hr IV Q24H [facility] Naloxone HCl (Narcan) 0.1 mg IV ASDIRECTED PRN PRN Reason: decreased respiratory rate Ondansetron HCl (Zofran) 4 mg IVPUSH Q4H PRN PRN Reason: Nausea/Vomiting Last Admin: 05/20/16 21:17 Dose: 4 mg Pantoprazole Sodium (Protonix Iv) 40 mg IV Q24H [facility] Last Admin: 05/22/16 16:02 Dose: 40 mg Discontinued Medications Acetaminophen (Tylenol) 650 mg PO Q6H [facility] Last Admin: 05/16/16 09:03 Dose: Not Given Albuterol/Ipratropium (Duoneb 3.0-0.5 Mg/3 Ml) 3 ml NEB ONETIME STA Stop: 05/13/16 19:09 Last Admin: 05/13/16 19:21 Dose: 3 ml Alvimopan (Entereg) 12 mg PO ONETIME ONE Stop: 05/09/16 08:31 Last Admin: 05/09/16 08:30 Dose: 12 mg Alvimopan (Entereg) 12 mg PO Q12H [facility] Stop: 05/16/16 09:01 Last Admin: 05/10/16 09:04 Dose: 12 mg Bisacodyl (Dulcolax) 10 mg PO BID [facility] Last Admin: 05/11/16 09:52 Dose: Not Given Bupivacaine HCl (Marcaine 0.5%) Confirm Administered Dose 50 ml .ROUTE .STK-MED ONE Stop: 05/11/16 06:49 Last Admin: 05/11/16 09:09 Dose: 32 ml Bupivacaine HCl (Marcaine 0.5%) Confirm Administered Dose 50 ml .ROUTE .STK-MED ONE Stop: 05/17/16 06:47 Last Admin: 05/17/16 08:07 Dose: 20 ml Bupivacaine HCl (Marcaine 0.5%) Confirm Administered Dose 50 ml .ROUTE .STK-MED ONE Stop: 05/19/16 14:06 Bupivacaine HCl (Marcaine 0.5%) Confirm Administered Dose 50 ml .ROUTE .STK-MED ONE Stop: 05/21/16 06:21 Last Admin: 05/21/16 08:48 Dose: 10 ml Bupivacaine HCl/Epinephrine Bitart (Marcaine 0.5%/Epinephrine 1:200,000) Confirm Administered Dose 50 ml .ROUTE .STK-MED ONE Stop: 05/19/16 14:06 Last Admin: 05/19/16 14:10 Dose: 25 ml Cefoxitin Sodium (Mefoxin) Confirm Administered Dose 2 gm .ROUTE .STK-MED ONE Stop: 05/09/16 06:55 Neomycin/Polymyxin 1 ml/ (Sodium Chloride 750 ml) 0 ml .XX ONETIME ONE Stop: 05/09/16 09:16 Last Admin: 05/09/16 13:25 Dose: Not Given Cyanocobalamin (Vitamin B12) 1,000 mcg IM ONETIME ONE Stop: 05/11/16 09:01 Last Admin: 05/11/16 09:53 Dose: 1,000 mcg Cyclobenzaprine HCl (Flexeril) 10 mg PO Q6H PRN PRN Reason: Muscle Spasm Last Admin: 05/13/16 06:22 Dose: 10 mg Dexamethasone (Dexamethasone) Confirm Administered Dose 4 mg .ROUTE .STK-MED ONE Stop: 05/09/16 08:37 Dexamethasone (Dexamethasone) Confirm Administered Dose 4 mg .ROUTE .STK-MED ONE Stop: 05/14/16 07:44 Dexamethasone (Dexamethasone) Confirm Administered Dose 4 mg .ROUTE .STK-MED ONE Stop: 05/19/16 12:14 Diatrizoate Meglum/Diatrizoate Sod (Gastrografin 37%) 30 ml PO . DIRECTED SARAHY Stop: 05/13/16 19:46 Last Admin: 05/13/16 19:33 Dose: 30 mg Diphenhydramine HCl (Benadryl) 25 mg IVPUSH Q6H PRN PRN Reason: ITCHING Diphenoxylate HCl/Atropine (Lomotil 0.025-2.5 Mg) 1 tab PO ONETIME ONE Stop: 05/12/16 10:36 Last Admin: 05/12/16 10:55 Dose: 1 tab Diphenoxylate HCl/Atropine (Lomotil 0.025-2.5 Mg) 1 tab PO Q6H PRN PRN Reason: Diarrhea Edrophonium Chloride (Enlon) Confirm Administered Dose 150 mg .ROUTE .STK-MED ONE Stop: 05/14/16 10:59 Edrophonium Chloride (Enlon) Confirm Administered Dose 150 mg .ROUTE .STK-MED ONE Stop: 05/19/16 14:23 Fentanyl (Sublimaze) Confirm Administered Dose 500 mcg .ROUTE .STK-MED ONE Stop: 05/09/16 08:37 Fentanyl (Sublimaze) Confirm Administered Dose 100 mcg .ROUTE .STK-MED ONE Stop: 05/09/16 08:39 Fentanyl (Duragesic) 12 mcg TRDERM Q72H [facility] Last Admin: 05/13/16 13:15 Dose: Not Given Fentanyl (Sublimaze) Confirm Administered Dose 250 mcg .ROUTE .STK-MED ONE Stop: 05/14/16 07:44 Fentanyl (Duragesic) 25 mcg TRDERM Q72H [facility] Last Admin: 05/14/16 16:58 Dose: Not Given Fentanyl (Sublimaze) Confirm Administered Dose 100 mcg .ROUTE .STK-MED ONE Stop: 05/17/16 07:22 Fentanyl (Sublimaze) Confirm Administered Dose 250 mcg .ROUTE .STK-MED ONE Stop: 05/19/16 12:13 Fentanyl (Sublimaze) Confirm Administered Dose 100 mcg .ROUTE .STK-MED ONE Stop: 05/21/16 08:19 Furosemide (Lasix) 20 mg IVPUSH ONETIME ONE Stop: 05/13/16 18:01 Last Admin: 05/13/16 18:21 Dose: 20 mg Gabapentin (Neurontin) 300 mg PO ONETIME ONE Stop: 05/09/16 08:16 Last Admin: 05/09/16 07:53 Dose: 300 mg Gabapentin (Neurontin) 300 mg PO TID [facility] Last Admin: 05/12/16 21:54 Dose: 300 mg Glycopyrrolate () Confirm Administered Dose 1 mg .ROUTE .STK-MED ONE Stop: 05/09/16 08:37 Glycopyrrolate () Confirm Administered Dose 1 mg .ROUTE .STK-MED ONE Stop: 05/14/16 07:44 Glycopyrrolate () Confirm Administered Dose 1 mg .ROUTE .STK-MED ONE Stop: 05/19/16 12:14 Heparin Sodium (Porcine) (Heparin Sodium) 5,000 units SUBCUT Q12H [facility] Stop: 05/10/16 20:00 Last Admin: 05/10/16 06:23 Dose: 5,000 units Heparin Sodium (Porcine) (Heparin Sodium) 5,000 units SUBCUT Q12H [facility] Heparin Sodium (Porcine) (Heparin Sodium) 5,000 units SUBCUT ONETIME ONE Stop: 05/10/16 17:01 Last Admin: 05/10/16 16:45 Dose: 5,000 units Heparin Sodium (Porcine) (Heparin Lock Flush 100 Units/Ml Syringe) 500 units FLUSH .STK-MED ONE Stop: 05/14/16 10:20 Last Admin: 05/14/16 10:19 Dose: 500 units Heparin Sodium (Porcine) (Heparin Lock Flush 100 Units/Ml Syringe) Confirm Administered Dose 500 units .ROUTE .STK-MED ONE Stop: 05/15/16 17:28 Last Admin: 05/15/16 19:22 Dose: Not Given Heparin Sodium (Porcine) (Heparin Lock Flush 100 Units/Ml Syringe) Confirm Administered Dose 500 units .ROUTE .[facility] ONE Stop: 05/19/16 21:35 Last Admin: 05/19/16 21:50 Dose: 500 units Hydromorphone HCl (Dilaudid) 2 - 4 mg PO Q4H PRN PRN Reason: PAIN Last Admin: 05/14/16 02:12 Dose: 4 mg Hydroxyzine HCl (Vistaril) 75 - 100 mg IM Q4H PRN PRN Reason: PAIN NOT CONTROLLED BY OBSTETRICS SPECIALIST Last Admin: 05/13/16 02:48 Dose: 100 mg Dextrose/Lactated Ringer's (Dextrose 5%-Lactated Ringers) 1,000 mls @ 100 mls/ hr IV ASDIRECTED [facility]AH[facility] Last Admin: 05/09/16 07:55 Dose: 100 mls/hr Cefoxitin Sodium 2 gm/ Sodium (Chloride) 50 mls @ 100 mls/hr IV ONETIME ONE Stop: 05/09/16 09:44 Last Admin: 05/09/16 09:08 Dose: 100 mls/hr Fentanyl 2,500 mcg/ Sodium (Chloride) 250 mls @ 0 mls/hr EPIDUR TITRATE SARAHY; Titrate PRN Reason: Protocol Last Admin: 05/10/16 09:12 Dose: 10 ml/hr, 10 mls/hr Ketamine HCl 100 mg/ Sodium (Chloride) 100 mls @ 18 mls/hr IV ASDIRECTED [facility] Stop: 05/09/16 13:00 Lactated Ringer's (Ringers, Lactated) Confirm Administered Dose 1,000 mls @ as directed .ROUTE .[facility] ONE Stop: 05/09/16 08:37 Sodium Chloride (Normal Saline) Confirm Administered Dose 10 mls @ as directed .ROUTE .[facility] ONE Stop: 05/09/16 08:39 Lidocaine HCl (Xylocaine-Mpf 1%) Confirm Administered Dose 2 mls @ as directed .ROUTE .[facility] ONE Stop: 05/09/16 09:24 Lactated Ringer's (Ringers, Lactated) Confirm Administered Dose 1,000 mls @ as directed .ROUTE .[facility] ONE Stop: 05/09/16 11:10 Lactated Ringer's (Ringers, Lactated) 500 mls @ 500 mls/hr IV .[facility] ONE Stop: 05/09/16 14:59 Last Admin: 05/09/16 14:03 Dose: 500 mls/hr Dextrose/Lactated Ringer's (Dextrose 5%-Lactated Ringers) 1,000 mls @ 200 mls/ hr IV ASDIRECTED [facility] Stop: 05/10/16 17:59 Last Admin: 05/10/16 15:05 Dose: 200 mls/hr Multivitamins/Minerals 10 ml/Thiamine HCl 200 mg/ Chromium/Copper/Manganese/ Seleni/Zn 1 ml/ Dextrose/Lactated Ringer's 1,013 mls @ 100 mls/hr IV DAILY@ 1600 [facility] Last Admin: 05/14/16 16:33 Dose: Not Given Cefoxitin Sodium 2 gm/ Sodium (Chloride) 50 mls @ 100 mls/hr IV Q6H [facility] Last Admin: 05/12/16 03:39 Dose: 100 mls/hr Acetaminophen 1,000 mg/ Premix 100 mls @ 400 mls/hr IV Q6H [facility] Stop: 05/10/16 04:14 Last Admin: 05/10/16 04:19 Dose: 400 mls/hr Ketamine HCl 100 mg/ Sodium (Chloride) 101 mls @ as directed IV .STK-MED ONE Stop: 05/09/16 09:46 Dextrose/Lactated Ringer's (Dextrose 5%-Lactated Ringers) 1,000 mls @ 100 mls/ hr IV ASDIRECTED [facility] Last Admin: 05/13/16 02:59 Dose: 100 mls/hr Magnesium Sulfate 2 gm/ Sodium (Chloride) 54 mls @ 27 mls/hr IV ONETIME ONE Stop: 05/13/16 11:59 Last Admin: 05/13/16 10:01 Dose: 27 mls/hr Magnesium Sulfate 2 gm/ Premix 50 mls @ 25 mls/hr IV Q6H [facility] Stop: 05/15/16 05:59 Last Admin: 05/16/16 09:03 Dose: Not Given Potassium Phosphate 20 mmole/ (Sodium Chloride) 256.6667 mls @ 85 mls/hr IV Q3H [facility] Stop: 05/13/16 18:59 Last Admin: 05/13/16 19:49 Dose: 85 mls/hr Dextrose/Lactated Ringer's (Dextrose 5%-Lactated Ringers) 1,000 mls @ 80 mls/ hr IV ASDIRECTED [facility] Stop: 05/14/16 14:29 Last Admin: 05/13/16 18:20 Dose: 25 mls/hr Meropenem 500 mg/ Sodium (Chloride) 50 mls @ 100 mls/hr IV ONETIME ONE Stop: 05/13/16 18:29 Last Admin: 05/13/16 18:28 Dose: 100 mls/hr Sodium Chloride (Normal Saline) 70 mls @ 3 mls/sec IV ASDIRECTED [facility] Last Admin: 05/13/16 19:22 Dose: 3 mls/sec Meropenem 500 mg/ Sodium (Chloride) 50 mls @ 100 mls/hr IV Q6H [facility] Last Admin: 05/23/16 10:20 Dose: 100 mls/hr Aztreonam 1 gm/ Sodium (Chloride) 50 mls @ 100 mls/hr IV Q8HR [facility] Last Admin: 05/14/16 05:39 Dose: 100 mls/hr Aztreonam/Dextrose 1 gm/ (Premix) 50 mls @ 100 mls/hr IV Q8H [facility] Last Admin: 05/21/16 14:02 Dose: 100 mls/hr Sodium Chloride (Normal Saline) Confirm Administered Dose 10 mls @ as directed .ROUTE .STK-MED ONE Stop: 05/14/16 08:52 Sodium Chloride (Normal Saline) Confirm Administered Dose 10 mls @ as directed .ROUTE .STK-MED ONE Stop: 05/14/16 09:28 Lactated Ringer's (Ringers, Lactated) Confirm Administered Dose 1,000 mls @ as directed .ROUTE .STK-MED ONE Stop: 05/14/16 09:34 Multivitamins/Minerals 10 ml/Chromium/Copper/Manganese/Seleni/Zn 1 ml/ Amino Ac/ Electrol/Dextrose/Calcium 1,011 mls @ 82 mls/hr IV .BY DURATION [facility] Stop: 05/16/16 10:59 Last Admin: 05/15/16 15:31 Dose: 82 mls/hr Amino Ac/Electrol/Dextrose/Calcium (Clinimix E 07/25) 1,000 mls @ 82 mls/hr IV .BY DURATION [facility] Stop: 05/16/16 10:59 Last Admin: 05/16/16 03:41 Dose: 82 mls/hr Lactated Ringer's (Ringers, Lactated) 1,000 mls @ 100 mls/hr IV ASDIRECTED [facility] Last Admin: 05/20/16 03:16 Dose: 100 mls/hr Acetaminophen 1,000 mg/ Premix 100 mls @ 400 mls/hr IV Q6H [facility] Stop: 05/15/16 10:14 Last Admin: 05/15/16 10:12 Dose: 400 mls/hr Potassium Phosphate 15 mmole/Lidocaine HCl 2 ml/ Sodium Chloride 157 mls @ 53 mls/hr IV Q3H [facility] Stop: 05/15/16 15:58 Last Admin: 05/15/16 13:04 Dose: 53 mls/hr Potassium Phosphate 15 mmole/ (Sodium Chloride) 155 mls @ 55 mls/hr IV Q3H [facility] Stop: 05/16/16 16:50 Last Admin: 05/16/16 17:27 Dose: 55 mls/hr Levofloxacin/Dextrose 750 mg/ (Premix) 150 mls @ 100 mls/hr IV Q24H [facility] Last Admin: 05/21/16 11:17 Dose: 100 mls/hr Vancomycin HCl 1.3 gm/ Sodium (Chloride) 250 mls @ 167 mls/hr IV ONETIME ONE Stop: 05/17/16 14:29 Last Admin: 05/17/16 13:18 Dose: 167 mls/hr Vancomycin HCl 1 gm/ Sodium (Chloride) 250 mls @ 167 mls/hr IV Q12H [facility] Last Admin: 05/19/16 00:30 Dose: 167 mls/hr Sodium Chloride (Normal Saline) 70 mls @ 3 mls/sec IV ASDIRECTED [facility] Stop: 05/19/16 08:30 Lactated Ringer's (Ringers, Lactated) Confirm Administered Dose 1,000 mls @ as directed .ROUTE .[facility] ONE Stop: 05/19/16 13:23 Sodium Chloride (Normal Saline) Confirm Administered Dose 10 mls @ as directed .ROUTE .[facility] ONE Stop: 05/19/16 13:31 Vancomycin HCl 1 gm/ Sodium (Chloride) 250 mls @ 167 mls/hr IV Q8H [facility] Last Admin: 05/21/16 00:14 Dose: 167 mls/hr Fluconazole/Sodium Chloride (400 mg/ Premix) 200 mls @ 100 mls/hr IV Q24H [facility] Last Admin: 05/23/16 08:11 Dose: 100 mls/hr Vancomycin HCl 1.1 gm/ Sodium (Chloride) 250 mls @ 167 mls/hr IV Q8H [facility] Stop: 05/21/16 12:00 Last Admin: 05/21/16 09:50 Dose: 167 mls/hr Vancomycin HCl 1.1 gm/ Sodium (Chloride) 250 mls @ 167 mls/hr IV Q8H [facility] Last Admin: 05/22/16 09:28 Dose: 167 mls/hr Acetaminophen 1,000 mg/ Premix 100 mls @ 400 mls/hr IV Q6H PRN PRN Reason: Fever Stop: 05/22/16 21:01 Last Admin: 05/22/16 16:11 Dose: 400 mls/hr Gentamicin Sulfate 360 mg/ (Sodium Chloride) 159 mls @ 106 mls/hr IV Q24H [facility] Last Admin: 05/22/16 14:13 Dose: 106 mls/hr Ibuprofen (Motrin) 600 mg PO Q6H [facility] Last Admin: 05/13/16 05:24 Dose: Not Given Inulin (Fiber Choice) 4.5 gm PO BID [facility] Last Admin: 05/16/16 09:03 Dose: Not Given Iohexol (Omnipaque-300) 50 ml PO .ASDIRECTED [facility] Last Admin: 05/10/16 03:46 Dose: 50 ml Iohexol (Omnipaque-300) 10 ml PO . DIRECTED PRN PRN Reason: RADIOLOGY EXAM Stop: 05/20/16 08:30 Last Admin: 05/19/16 07:44 Dose: 10 ml Iopamidol (Isovue-300 (61%)) 100 ml IV . DIRECTED SARAHY Last Admin: 05/13/16 19:22 Dose: 90 ml Iopamidol (Isovue-300 (61%)) 90 ml IV . DIRECTED PRN PRN Reason: RADIOLOGY EXAM Stop: 05/19/16 08:30 Last Admin: 05/19/16 07:44 Dose: 90 ml Ketamine HCl (Ketalar) 30 mg IV ASDIRECTED [facility] Stop: 05/09/16 11:00 Ketamine HCl (Ketalar) 30 mg IV .STK-MED ONE Stop: 05/09/16 09:46 Ketamine HCl (Ketalar) Confirm Administered Dose 500 mg .ROUTE .STK-MED ONE Stop: 05/14/16 08:51 Lactobacillus Rhamnosus (Culturelle) 2 cap PO BID [facility] Last Admin: 05/16/16 09:04 Dose: Not Given Lidocaine/Epinephrine (Xylocaine 1% With Epinephrine 1:100,000) Confirm Administered Dose 50 ml .ROUTE .STK-MED ONE Stop: 05/11/16 06:49 Last Admin: 05/11/16 09:09 Dose: 32 ml Lidocaine/Epinephrine (Xylocaine 1% With Epinephrine 1:100,000) Confirm Administered Dose 50 ml .ROUTE .STK-MED ONE Stop: 05/17/16 06:47 Last Admin: 05/17/16 08:07 Dose: 20 ml Lidocaine/Epinephrine (Xylocaine 1% With Epinephrine 1:100,000) Confirm Administered Dose 50 ml .ROUTE .STK-MED ONE Stop: 05/21/16 06:21 Last Admin: 05/21/16 08:48 Dose: 10 ml Meperidine HCl (Demerol) 50 mg IM ASDIRECTED PRN PRN Reason: PAIN Stop: 05/10/16 14:45 Meropenem (Merrem) Confirm Administered Dose 500 mg .ROUTE .STK-MED ONE Stop: 05/09/16 08:14 Last Admin: 05/09/16 10:24 Dose: 500 mg Meropenem (Merrem) Confirm Administered Dose 500 mg .ROUTE .STK-MED ONE Stop: 05/11/16 06:49 Last Admin: 05/11/16 09:10 Dose: 500 mg Meropenem (Merrem) Confirm Administered Dose 500 mg .ROUTE .[facility] ONE Stop: 05/14/16 07:31 Last Admin: 05/14/16 10:19 Dose: 500 mg Meropenem (Merrem) Confirm Administered Dose 500 mg .ROUTE .[facility]-MED ONE Stop: 05/14/16 10:03 Last Admin: 05/14/16 10:19 Dose: 500 mg Meropenem (Merrem) Confirm Administered Dose 500 mg .ROUTE .[facility]-MED ONE Stop: 05/17/16 06:46 Last Admin: 05/17/16 08:12 Dose: 500 mg Meropenem (Merrem) Confirm Administered Dose 500 mg .ROUTE .[facility]-MED ONE Stop: 05/19/16 12:10 Last Admin: 05/19/16 13:30 Dose: 500 mg Meropenem (Merrem) Confirm Administered Dose 500 mg .ROUTE .[facility]-MED ONE Stop: 05/19/16 13:31 Last Admin: 05/19/16 14:25 Dose: 500 mg Meropenem (Merrem) Confirm Administered Dose 500 mg .ROUTE .[facility]-MED ONE Stop: 05/21/16 06:20 Last Admin: 05/21/16 08:51 Dose: 500 mg Metoclopramide HCl (Reglan) 10 mg IV Q6H [facility] Last Admin: 05/14/16 08:03 Dose: 10 mg Midazolam HCl (Versed 1 Mg/Ml) Confirm Administered Dose 2 mg .ROUTE .ST-MED ONE Stop: 05/14/16 07:44 Midazolam HCl (Versed 1 Mg/Ml) Confirm Administered Dose 2 mg .ROUTE .ST-MED ONE Stop: 05/17/16 07:22 Midazolam HCl (Versed 1 Mg/Ml) Confirm Administered Dose 2 mg .ROUTE .ST-MED ONE Stop: 05/19/16 12:13 Midazolam HCl (Versed 1 Mg/Ml) Confirm Administered Dose 2 mg .ROUTE .ST-MED ONE Stop: 05/21/16 08:19 Naloxone HCl (Narcan) 0.4 mg IV ASDIRECTED PRN PRN Reason: ITCHING Neostigmine Methylsulfate (Neostigmine) Confirm Administered Dose 5 mg .ROUTE .ST-MED ONE Stop: 05/09/16 08:37 Neostigmine Methylsulfate (Neostigmine) Confirm Administered Dose 5 mg .ROUTE .STK-MED ONE Stop: 05/14/16 07:44 Neostigmine Methylsulfate (Neostigmine) Confirm Administered Dose 5 mg .ROUTE .STK-MED ONE Stop: 05/19/16 12:14 Scopolamine Patch (Check) 1 each TOP DAILY [facility] Last Admin: 05/16/16 09:03 Dose: Not Given Check Fentanyl Patch (Daily) 1 each TOP DAILY [facility] Last Admin: 05/15/16 09:06 Dose: Not Given Ondansetron HCl (Zofran) Confirm Administered Dose 4 mg .ROUTE .STK-MED ONE Stop: 05/09/16 08:37 Ondansetron HCl (Zofran) Confirm Administered Dose 4 mg .ROUTE .STK-MED ONE Stop: 05/14/16 07:44 Ondansetron HCl (Zofran) Confirm Administered Dose 4 mg .ROUTE .STK-MED ONE Stop: 05/19/16 12:14 Pantoprazole Sodium (Protonix Iv) 40 mg IVPUSH Q24H [facility] Last Admin: 05/11/16 16:53 Dose: 40 mg Pantoprazole Sodium (Protonix) 40 mg PO Q24H [facility] Last Admin: 05/13/16 16:59 Dose: 40 mg Phenylephrine HCl (Yan-Synephrine) Confirm Administered Dose 10 mg .ROUTE .STK- MED ONE Stop: 05/14/16 09:27 Propofol (Diprivan 20 Ml) Confirm Administered Dose 200 mg .ROUTE .STK-MED ONE Stop: 05/09/16 08:37 Propofol (Diprivan 20 Ml) Confirm Administered Dose 200 mg .ROUTE .STK-MED ONE Stop: 05/11/16 07:00 Propofol (Diprivan 20 Ml) Confirm Administered Dose 200 mg .ROUTE .STK-MED ONE Stop: 05/14/16 07:44 Propofol (Diprivan 20 Ml) Confirm Administered Dose 200 mg .ROUTE .STK-MED ONE Stop: 05/17/16 07:22 Propofol (Diprivan 20 Ml) Confirm Administered Dose 200 mg .ROUTE .STK-MED ONE Stop: 05/19/16 12:14 Propofol (Diprivan 20 Ml) Confirm Administered Dose 200 mg .ROUTE .STK-MED ONE Stop: 05/21/16 08:19 Rocuronium [place] (Zemuron) Confirm Administered Dose 100 mg .ROUTE .STK-MED ONE Stop: 05/09/16 08:37 Rocuronium [place] (Zemuron) Confirm Administered Dose 50 mg .ROUTE .STK-MED ONE Stop: 05/14/16 07:44 Rocuronium [place] (Zemuron) Confirm Administered Dose 50 mg .ROUTE .STK-MED ONE Stop: 05/19/16 12:14 Scopolamine (Transderm-Scop) 1.5 mg TOP Q72H [facility] Stop: 05/12/16 06:00 Last Admin: 05/09/16 07:53 Dose: 1.5 mg Scopolamine (Transderm-Scop) Confirm Administered Dose 1.5 mg .ROUTE .STK-MED ONE Stop: 05/09/16 08:37 Scopolamine (Transderm-Scop) 1.5 mg TOP ASDIRECTED [facility] Stop: 05/12/16 16:00 Scopolamine (Transderm-Scop) 1.5 mg TOP Q72H [facility] Last Admin: 05/12/16 09:17 Dose: 1.5 mg Sodium Chloride (Saline Flush) 10 ml FLUSH ONETIME ONE Stop: 05/13/16 18:10 Last Admin: 05/13/16 19:22 Dose: 10 ml Succinylcholine Chloride (Succinylcholine In Ns Pf) Confirm Administered Dose 200 mg .ROUTE .STK-MED ONE Stop: 05/09/16 08:37 Succinylcholine Chloride (Succinylcholine In Ns Pf) Confirm Administered Dose 200 mg .ROUTE .STK-MED ONE Stop: 05/14/16 07:44 Succinylcholine Chloride (Succinylcholine In Ns Pf) Confirm Administered Dose 200 mg .ROUTE .STK-MED ONE Stop: 05/19/16 12:14 Vancomycin HCl (Vancomycin) 1 gm IV .PHARMACY TO DOSE SARAHY - Exam Quality Assessment: supplemental oxygen General: alert, oriented, cooperative, mild distress Neck: supple Lungs: Decreased breath sounds (both bases), Crackles (few both lower lung godinez) Cardiovascular: regular rhythm, tachycardia, murmurs Abdomen: soft, no distension, abnormal bowel sounds (hypoactive) Extremities: no cyanosis, edema (mild pitting bilateral ankle edema) Skin: warm, dry Psy/Mental Status: alert, normal affect Consult PN Assessment/Plan Procedures: Procedures ASSAY OF LACTIC ACID (03/04/16) ASSAY OF MAGNESIUM (04/07/16) ASSAY OF PHOSPHORUS (04/07/16) ASSAY THYROID STIM HORMONE (10/08/15) BLOOD TYPING SEROLOGIC ABO (04/14/15) BLOOD TYPING SEROLOGIC RH(D) (04/14/15) C-REACTIVE PROTEIN (04/07/16) COMPLETE CBC AUTOMATED (04/07/16) COMPLETE CBC W/AUTO DIFF WBC (04/07/16) COMPREHEN METABOLIC PANEL (04/07/16) CT ABD & PELV W/CONTRAST (03/04/16) CULTURE SCREEN ONLY (11/10/15) ELECTROCARDIOGRAM TRACING (04/14/15) EMERGENCY DEPT VISIT (04/07/16) HYDRATE IV INFUSION ADD-ON (04/07/16) MEASURE BLOOD OXYGEN LEVEL (01/01/16) METABOLIC PANEL TOTAL CA (03/04/16) PT EVALUATION (11/10/15) RBC ANTIBODY SCREEN (04/14/15) ROUTINE VENIPUNCTURE (04/07/16) SPECIAL STAINS GROUP 2 (04/14/15) THER/PROPH/DIAG INJ IV PUSH (04/07/16) THER/PROPH/DIAG IV INF ADDON (03/04/16) THER/PROPH/DIAG IV INF INIT (03/04/16) THERAPEUTIC ACTIVITIES (11/10/15) TISSUE EXAM BY PATHOLOGIST (01/01/16) TISSUE EXAM BY PATHOLOGIST (01/01/16) TISSUE EXAM BY PATHOLOGIST (04/14/15) TISSUE EXAM BY PATHOLOGIST (04/14/15) TX/PRO/DX INJ NEW DRUG ADDON (04/07/16) URINALYSIS AUTO W/SCOPE (04/07/16) X-RAY EXAM OF ABDOMEN (04/07/16) X-RAY EXAM SERIES ABDOMEN (04/07/16) X-RAY UPPER GI DELAY W/O KUB (03/04/16) X-RAY UPPER GI&SMALL INTEST (04/07/16) (1) Elevated bilirubin SNOMED Code(s): 887004006 Code(s): R17 - UNSPECIFIED JAUNDICE Current Visit: Yes Problem List Initiated/Reviewed/Updated: Yes My Orders last 24 hours: My Active Orders 05/23/16 10:20 CXR [Chest 1V Frontal] [CR] Routine 05/24/16 05:00 BASIC METABOLIC PANEL,BMP [CHEM] Timed CBC W/O DIFF,HEMOGRAM [HEME] Timed (1) Plan: Assessment and Plan - Abdominal abscess with peritonitis secondary to JJ leak - status post exploratory laparotomy 3/ and again last week because of splenic abscess. Cultures from wound and drains are growing Escherichia coli, Enterobacter, and relatively rare species of enterococcus it is often resistant to vancomycin. white blood cell count with slight trend towards improvement today. -continue Zyvox and gentamicin IV (this combination should cover all of the above organisms) -Followup cultures, enterococcus is being sent to reference lab for sensitivities -additional postop cares per surgical team -Continue nutritional support with TPN Hypoxia - exam suggests pleural effusions and this was confirmed with chest x- ray today. Patient is self diuresed quite well at this point. I don't think that additional Lasix will provide any benefit. -Monitor urine output -Wean oxygen as able Recurrent fever - likely secondary to abdominal source versus medication versus atelectasis. -Antibiotic adjustments as above Mild elevation in transaminase levels - bilirubin is within normal range -Labs in the morning Eduard Bedolla M.D.
--- NOTE | 2016-05-23 10:57 | PN ---
DATE OF SERVICE: 05/20/2016 The patient has now been afebrile since the additional surgery yesterday. Heart rate has also come down into the 80s. Present blood pressure is 100 to 120 over 60 to 70. Her O2 sats on 2 L nasal cannula are satisfactory. The NG tube output has been relatively scant, which is a good sign, it probably means the ileus is resolving. Of note, the anterior abdominal wall area abscess showed fungus. The subphrenic abscess did not show any bacteria. We will continue the present antibiotics. The most recent cultures through the LACIE drain did grow some gram-positives, and Rimma Urena added some vancomycin to be sure they were covering those organisms satisfactorily. We will add some Diflucan to the antibiotic mix and otherwise proceed with the delayed primary closure. Continue TPN and begin getting the patient up and moving as much as possible over the next 24 hours. The wound will be closed tomorrow morning. Kit Duke MD /[id number]
--- NOTE | 2016-05-23 11:06 | CR ---
Mild cardiomegaly. Left subclavian catheter at mid SVC. Small pleural effusions with atelectasis or infiltrate the lung bases.
[2016-05-23] MEDS: Linezolid 600 MG in Premix Bag 1 BAG IV SCH ×2 (11:09→22:32)
[2016-05-23] MEDS: SODIUM CHLORIDE 0.9% IV SCH (13:57)
[2016-05-23] MEDS: GENTAMICIN IV SCH (13:57)
[2016-05-23] MEDS: Pantoprazole 40 MG Vial IV SCH (16:18)
[2016-05-23] MEDS: HYDROmorphone/Normal Saline 15 MG/30 ML PCA IV PRN (17:55)
[2016-05-23] MEDS: Lactated Ringers 1,000 ML IV SCH (22:36)
[2016-05-24] MEDS: 1: AA 5%/Calcium/D15W/Lytes 1,000 ML with MVI, Adult with Vitamin K 10 ML, Chromium/Copp IV SCH ×6 (05:53→16:46)
[2016-05-24] MEDS: Acetaminophen 1,000 MG in Premix Bag 1 BAG IV PRN ×2 (06:49→13:10)
[2016-05-24] MEDS ORDERED: Central Total Parenteral Nutrition Bag SCH (08:45)
--- NOTE | 2016-05-24 10:09 | PCM.CONSN ---
- General Info Date of Service: 05/24/16 Functional Status: Reports: pain controlled, ambulating - Review of Systems General: Reports: Weakness. Denies: Fever Pulmonary: Denies: shortness of breath Gastrointestinal: Reports: Abdominal pain Systems Review Comment:: no acute events overnight. Patient reports that she is feeling less short of breath and her energy seems to have improved. She has not been sleeping well in the intensive care unit but in general feels fairly well rested. Her pain is under the best control that it has been in the past week. She is passing small quantities of gas but has not had a bowel movement. LACIE drainage seems to be decreasing. Tolerating TPN well. White blood cell count continues to come down and her fever curve is improving. Tolerating current antibiotics. - Patient Data Vitals - most recent: Last Vital Signs Temp 37.7 C 05/24/16 08:00 Pulse 92 05/24/16 08:00 Resp 18 05/24/16 08:00 BP 125/53 L 05/24/16 08:00 Pulse Ox 95 05/24/16 08:00 Weight - most recent: 60.781 kg I&O - last 24 hours: Intake & Output 05/23/16 05/24/16 05/24/16 22:59 06:59 14:59 Intake Total 2188 1525 Output Total 725 3340 Balance 1463 -1815 Lab Results last 24 hrs: Laboratory Results - last 24 hr 05/24/16 05/24/16 Range/Units 04:45 04:45 WBC 24.0 H (4.5-11.0) K/uL RBC 2.89 L (3.30-5.50) M/uL Hgb 7.8 L (12.0-15.0) g/dL Hct 24.3 L (36.0-48.0) % MCV 84 (80-98) fL MCH 27 (27-31) pg MCHC 32 (32-36) % Plt Count 918 H (150-400) K/uL Sodium 140 (140-148) mmol/L Potassium 4.2 (3.6-5.2) mmol/L Chloride 104 (100-108) mmol/L Carbon Dioxide 28 (21-32) mmol/L Anion Gap 8.4 (5.0-14.0) mmol/L BUN 15 (7-18) mg/dL Creatinine 0.4 L (0.6-1.0) mg/dL Est Cr Clr Drug Dosing 148.89 mL/min Estimated GFR (MDRD) > 60 (>60) Glucose 101 (74-106) mg/dL Calcium 8.5 (8.5-10.1) mg/dL Dereje Results last 24 hrs: Microbiology 05/19/16 14:17 Gram Stain - Final Abdomen - Abscess Wound Culture - Preliminary Escherichia Coli Enterobacter Dissolvens Enterococcus Raffinosus Anaerobic Culture - Final NO GROWTH AFTER 3 DAYS 05/19/16 13:43 Gram Stain - Final Spleen Wound Culture - Final Escherichia Coli Enterobacter Dissolvens Enterococcus Raffinosus Anaerobic Culture - Final NO GROWTH AFTER 3 DAYS Med Orders - Current: Current Medications Acetaminophen (Tylenol) 650 mg RECTAL Q4H PRN PRN Reason: Fever Last Admin: 05/18/16 05:53 Dose: 650 mg Bacitracin (Bacitracin Oint 1 Gm) 1 dose TOP BID PRN PRN Reason: burn Last Admin: 05/12/16 20:31 Dose: 2 dose Dimethicone/Zinc Oxide (Rash Relief-Zinc Oxide [place]) 1 gm TOP ASDIRECTED PRN PRN Reason: Other Last Admin: 05/12/16 20:30 Dose: 1 bot Diphenhydramine HCl (Benadryl) 25 - 50 mg IVPUSH Q4H PRN PRN Reason: ITCHING Heparin Sodium (Porcine) (Heparin Lock Flush 100 Units/Ml Syringe) 500 units IVPUSH ASDIRECTED PRN 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 Last Admin: 05/23/16 21:27 Dose: 500 units Hydromorphone HCl (Dilaudid [employer] 15 Mg In Ns 30 Ml) 0 mg IV ASDIRECTED PRN; Protocol PRN Reason: FINAL TOUCH UP PAINTER 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 CONTROL Last Admin: 05/23/16 17:55 Dose: 15 mg Hydroxyzine HCl (Vistaril) 100 mg IM Q4H PRN PRN Reason: PAIN NOT CONTROLLED BY FINAL TOUCH UP PAINTER Last Admin: 05/21/16 10:40 Dose: 100 mg Lactated Ringer's (Ringers, Lactated) 1,000 mls @ 0 mls/hr IV ASDIRECTED SARAHY PRN Reason: KVO Last Admin: 05/23/16 22:36 Dose: 20 mls/hr Linezolid 600 mg/ Premix 300 mls @ 300 mls/hr IV Q12H [facility] Last Admin: 05/23/16 22:32 Dose: 300 mls/hr Gentamicin Sulfate 420 mg/ (Sodium Chloride) 160.5 mls @ 107 mls/hr IV Q24H [facility] Last Admin: 05/23/16 13:57 Dose: 107 mls/hr Multivitamins/Minerals 10 ml/Chromium/Copper/Manganese/Seleni/Zn 1 ml/ Amino Ac/ Electrol/Dextrose/Calcium 1,011 mls @ 82 mls/hr IV .BY DURATION [facility] Last Admin: 05/23/16 16:21 Dose: 82 mls/hr Amino Ac/Electrol/Dextrose/Calcium (Clinimix E 15) 1,000 mls @ 82 mls/hr IV .BY DURATION [facility] Last Admin: 05/24/16 05:53 Dose: 82 mls/hr Acetaminophen 1,000 mg/ Premix 100 mls @ 400 mls/hr IV Q6H PRN PRN Reason: Pain Stop: 05/25/16 06:39 Last Admin: 05/24/16 06:49 Dose: 400 mls/hr Naloxone HCl (Narcan) 0.1 mg IV ASDIRECTED PRN PRN Reason: decreased respiratory rate Non-Formulary Medication (Total Parenteral Nutrition, Central) 1,000 ml .XX .Continue Order [facility] Stop: 05/24/16 16:00 Ondansetron HCl (Zofran) 4 mg IVPUSH Q4H PRN PRN Reason: Nausea/Vomiting Last Admin: 05/20/16 21:17 Dose: 4 mg Pantoprazole Sodium (Protonix Iv) 40 mg IV Q24H [facility] Last Admin: 05/23/16 16:18 Dose: 40 mg Discontinued Medications Acetaminophen (Tylenol) 650 mg PO Q6H [facility] Last Admin: 05/16/16 09:03 Dose: Not Given Albuterol/Ipratropium (Duoneb 3.0-0.5 Mg/3 Ml) 3 ml NEB ONETIME STA Stop: 05/13/16 19:09 Last Admin: 05/13/16 19:21 Dose: 3 ml Alvimopan (Entereg) 12 mg PO ONETIME ONE Stop: 05/09/16 08:31 Last Admin: 05/09/16 08:30 Dose: 12 mg Alvimopan (Entereg) 12 mg PO Q12H [facility] Stop: 05/16/16 09:01 Last Admin: 05/10/16 09:04 Dose: 12 mg Bisacodyl (Dulcolax) 10 mg PO BID [facility] Last Admin: 05/11/16 09:52 Dose: Not Given Bupivacaine HCl (Marcaine 0.5%) Confirm Administered Dose 50 ml .ROUTE .STK-MED ONE Stop: 05/11/16 06:49 Last Admin: 05/11/16 09:09 Dose: 32 ml Bupivacaine HCl (Marcaine 0.5%) Confirm Administered Dose 50 ml .ROUTE .STK-MED ONE Stop: 05/17/16 06:47 Last Admin: 05/17/16 08:07 Dose: 20 ml Bupivacaine HCl (Marcaine 0.5%) Confirm Administered Dose 50 ml .ROUTE .STK-MED ONE Stop: 05/19/16 14:06 Bupivacaine HCl (Marcaine 0.5%) Confirm Administered Dose 50 ml .ROUTE .STK-MED ONE Stop: 05/21/16 06:21 Last Admin: 05/21/16 08:48 Dose: 10 ml Bupivacaine HCl/Epinephrine Bitart (Marcaine 0.5%/Epinephrine 1:200,000) Confirm Administered Dose 50 ml .ROUTE .STK-MED ONE Stop: 05/19/16 14:06 Last Admin: 05/19/16 14:10 Dose: 25 ml Cefoxitin Sodium (Mefoxin) Confirm Administered Dose 2 gm .ROUTE .STK-MED ONE Stop: 05/09/16 06:55 Neomycin/Polymyxin 1 ml/ (Sodium Chloride 750 ml) 0 ml .XX ONETIME ONE Stop: 05/09/16 09:16 Last Admin: 05/09/16 13:25 Dose: Not Given Cyanocobalamin (Vitamin B12) 1,000 mcg IM ONETIME ONE Stop: 05/11/16 09:01 Last Admin: 05/11/16 09:53 Dose: 1,000 mcg Cyclobenzaprine HCl (Flexeril) 10 mg PO Q6H PRN PRN Reason: Muscle Spasm Last Admin: 05/13/16 06:22 Dose: 10 mg Dexamethasone (Dexamethasone) Confirm Administered Dose 4 mg .ROUTE .STK-MED ONE Stop: 05/09/16 08:37 Dexamethasone (Dexamethasone) Confirm Administered Dose 4 mg .ROUTE .STK-MED ONE Stop: 05/14/16 07:44 Dexamethasone (Dexamethasone) Confirm Administered Dose 4 mg .ROUTE .STK-MED ONE Stop: 05/19/16 12:14 Diatrizoate Meglum/Diatrizoate Sod (Gastrografin 37%) 30 ml PO . DIRECTED [facility] Stop: 05/13/16 19:46 Last Admin: 05/13/16 19:33 Dose: 30 mg Diphenhydramine HCl (Benadryl) 25 mg IVPUSH Q6H PRN PRN Reason: ITCHING Diphenoxylate HCl/Atropine (Lomotil 0.025-2.5 Mg) 1 tab PO ONETIME ONE Stop: 05/12/16 10:36 Last Admin: 05/12/16 10:55 Dose: 1 tab Diphenoxylate HCl/Atropine (Lomotil 0.025-2.5 Mg) 1 tab PO Q6H PRN PRN Reason: Diarrhea Edrophonium Chloride (Enlon) Confirm Administered Dose 150 mg .ROUTE .STK-MED ONE Stop: 05/14/16 10:59 Edrophonium Chloride (Enlon) Confirm Administered Dose 150 mg .ROUTE .STK-MED ONE Stop: 05/19/16 14:23 Fentanyl (Sublimaze) Confirm Administered Dose 500 mcg .ROUTE .STK-MED ONE Stop: 05/09/16 08:37 Fentanyl (Sublimaze) Confirm Administered Dose 100 mcg .ROUTE .STK-MED ONE Stop: 05/09/16 08:39 Fentanyl (Duragesic) 12 mcg TRDERM Q72H [facility] Last Admin: 05/13/16 13:15 Dose: Not Given Fentanyl (Sublimaze) Confirm Administered Dose 250 mcg .ROUTE .STK-MED ONE Stop: 05/14/16 07:44 Fentanyl (Duragesic) 25 mcg TRDERM Q72H [facility] Last Admin: 05/14/16 16:58 Dose: Not Given Fentanyl (Sublimaze) Confirm Administered Dose 100 mcg .ROUTE .STK-MED ONE Stop: 05/17/16 07:22 Fentanyl (Sublimaze) Confirm Administered Dose 250 mcg .ROUTE .STK-MED ONE Stop: 05/19/16 12:13 Fentanyl (Sublimaze) Confirm Administered Dose 100 mcg .ROUTE .STK-MED ONE Stop: 05/21/16 08:19 Furosemide (Lasix) 20 mg IVPUSH ONETIME ONE Stop: 05/13/16 18:01 Last Admin: 05/13/16 18:21 Dose: 20 mg Gabapentin (Neurontin) 300 mg PO ONETIME ONE Stop: 05/09/16 08:16 Last Admin: 05/09/16 07:53 Dose: 300 mg Gabapentin (Neurontin) 300 mg PO TID SARAHY Last Admin: 05/12/16 21:54 Dose: 300 mg Glycopyrrolate () Confirm Administered Dose 1 mg .ROUTE .STK-MED ONE Stop: 05/09/16 08:37 Glycopyrrolate () Confirm Administered Dose 1 mg .ROUTE .STK-MED ONE Stop: 05/14/16 07:44 Glycopyrrolate () Confirm Administered Dose 1 mg .ROUTE .STK-MED ONE Stop: 05/19/16 12:14 Heparin Sodium (Porcine) (Heparin Sodium) 5,000 units SUBCUT Q12H SARAHY Stop: 05/10/16 20:00 Last Admin: 05/10/16 06:23 Dose: 5,000 units Heparin Sodium (Porcine) (Heparin Sodium) 5,000 units SUBCUT Q12H [facility] Heparin Sodium (Porcine) (Heparin Sodium) 5,000 units SUBCUT ONETIME ONE Stop: 05/10/16 17:01 Last Admin: 05/10/16 16:45 Dose: 5,000 units Heparin Sodium (Porcine) (Heparin Lock Flush 100 Units/Ml Syringe) 500 units FLUSH .STK-MED ONE Stop: 05/14/16 10:20 Last Admin: 05/14/16 10:19 Dose: 500 units Heparin Sodium (Porcine) (Heparin Lock Flush 100 Units/Ml Syringe) Confirm Administered Dose 500 units .ROUTE .STK-MED ONE Stop: 05/15/16 17:28 Last Admin: 05/15/16 19:22 Dose: Not Given Heparin Sodium (Porcine) (Heparin Lock Flush 100 Units/Ml Syringe) Confirm Administered Dose 500 units .ROUTE .STK-MED ONE Stop: 05/19/16 21:35 Last Admin: 05/19/16 21:50 Dose: 500 units Hydromorphone HCl (Dilaudid) 2 - 4 mg PO Q4H PRN PRN Reason: PAIN Last Admin: 05/14/16 02:12 Dose: 4 mg Hydroxyzine HCl (Vistaril) 75 - 100 mg IM Q4H PRN PRN Reason: PAIN NOT CONTROLLED BY FINAL TOUCH UP PAINTER Last Admin: 05/13/16 02:48 Dose: 100 mg Dextrose/Lactated Ringer's (Dextrose 5%-Lactated Ringers) 1,000 mls @ 100 mls/ hr IV ASDIRECTED SARAHY Last Admin: 05/09/16 07:55 Dose: 100 mls/hr Cefoxitin Sodium 2 gm/ Sodium (Chloride) 50 mls @ 100 mls/hr IV ONETIME ONE Stop: 05/09/16 09:44 Last Admin: 05/09/16 09:08 Dose: 100 mls/hr Fentanyl 2,500 mcg/ Sodium (Chloride) 250 mls @ 0 mls/hr EPIDUR TITRATE SARAHY; Titrate PRN Reason: Protocol Last Admin: 05/10/16 09:12 Dose: 10 ml/hr, 10 mls/hr Ketamine HCl 100 mg/ Sodium (Chloride) 100 mls @ 18 mls/hr IV ASDIRECTED SARAHY Stop: 05/09/16 13:00 Lactated Ringer's (Ringers, Lactated) Confirm Administered Dose 1,000 mls @ as directed .ROUTE .STK-MED ONE Stop: 05/09/16 08:37 Sodium Chloride (Normal Saline) Confirm Administered Dose 10 mls @ as directed .ROUTE .STK-MED ONE Stop: 05/09/16 08:39 Lidocaine HCl (Xylocaine-Mpf 1%) Confirm Administered Dose 2 mls @ as directed .ROUTE .STK-MED ONE Stop: 05/09/16 09:24 Lactated Ringer's (Ringers, Lactated) Confirm Administered Dose 1,000 mls @ as directed .ROUTE .STK-MED ONE Stop: 05/09/16 11:10 Lactated Ringer's (Ringers, Lactated) 500 mls @ 500 mls/hr IV .BOLUS ONE Stop: 05/09/16 14:59 Last Admin: 05/09/16 14:03 Dose: 500 mls/hr Dextrose/Lactated Ringer's (Dextrose 5%-Lactated Ringers) 1,000 mls @ 200 mls/ hr IV ASDIRECTED SARAHY Stop: 05/10/16 17:59 Last Admin: 05/10/16 15:05 Dose: 200 mls/hr Multivitamins/Minerals 10 ml/Thiamine HCl 200 mg/ Chromium/Copper/Manganese/ Seleni/Zn 1 ml/ Dextrose/Lactated Ringer's 1,013 mls @ 100 mls/hr IV DAILY@ 1600 [facility] Last Admin: 05/14/16 16:33 Dose: Not Given Cefoxitin Sodium 2 gm/ Sodium (Chloride) 50 mls @ 100 mls/hr IV Q6H [facility] Last Admin: 05/12/16 03:39 Dose: 100 mls/hr Acetaminophen 1,000 mg/ Premix 100 mls @ 400 mls/hr IV Q6H [facility] Stop: 05/10/16 04:14 Last Admin: 05/10/16 04:19 Dose: 400 mls/hr Ketamine HCl 100 mg/ Sodium (Chloride) 101 mls @ as directed IV .STK-MED ONE Stop: 05/09/16 09:46 Dextrose/Lactated Ringer's (Dextrose 5%-Lactated Ringers) 1,000 mls @ 100 mls/ [facility] Last Admin: 05/13/16 02:59 Dose: 100 mls/hr Magnesium Sulfate 2 gm/ Sodium (Chloride) 54 mls @ 27 mls/hr IV ONETIME ONE Stop: 05/13/16 11:59 Last Admin: 05/13/16 10:01 Dose: 27 mls/hr Magnesium Sulfate 2 gm/ Premix 50 mls @ 25 mls/hr IV Q6H [facility] Stop: 05/15/16 05:59 Last Admin: 05/16/16 09:03 Dose: Not Given Potassium Phosphate 20 mmole/ (Sodium Chloride) 256.6667 mls @ 85 mls/hr IV Q3H [facility] Stop: 05/13/16 18:59 Last Admin: 05/13/16 19:49 Dose: 85 mls/hr Dextrose/Lactated Ringer's (Dextrose 5%-Lactated Ringers) 1,000 mls @ 80 mls/ hr IV ASDIRECTED [facility] Stop: 05/14/16 14:29 Last Admin: 05/13/16 18:20 Dose: 25 mls/hr Meropenem 500 mg/ Sodium (Chloride) 50 mls @ 100 mls/hr IV ONETIME ONE Stop: 05/13/16 18:29 Last Admin: 05/13/16 18:28 Dose: 100 mls/hr Sodium Chloride (Normal Saline) 70 mls @ 3 mls/sec IV ASDIRECTED [facility] Last Admin: 05/13/16 19:22 Dose: 3 mls/sec Meropenem 500 mg/ Sodium (Chloride) 50 mls @ 100 mls/hr IV Q6H [facility] Last Admin: 05/23/16 10:20 Dose: 100 mls/hr Aztreonam 1 gm/ Sodium (Chloride) 50 mls @ 100 mls/hr IV Q8HR [facility] Last Admin: 05/14/16 05:39 Dose: 100 mls/hr Aztreonam/Dextrose 1 gm/ (Premix) 50 mls @ 100 mls/hr IV Q8H [facility] Last Admin: 05/21/16 14:02 Dose: 100 mls/hr Sodium Chloride (Normal Saline) Confirm Administered Dose 10 mls @ as directed .ROUTE .[facility] ONE Stop: 05/14/16 08:52 Sodium Chloride (Normal Saline) Confirm Administered Dose 10 mls @ as directed .ROUTE .[facility] ONE Stop: 05/14/16 09:28 Lactated Ringer's (Ringers, Lactated) Confirm Administered Dose 1,000 mls @ as directed .ROUTE .[facility] ONE Stop: 05/14/16 09:34 Multivitamins/Minerals 10 ml/Chromium/Copper/Manganese/Seleni/Zn 1 ml/ Amino Ac/ Electrol/Dextrose/Calcium 1,011 mls @ 82 mls/hr IV .BY DURATION [facility] Stop: 05/16/16 10:59 Last Admin: 05/15/16 15:31 Dose: 82 mls/hr Amino Ac/Electrol/Dextrose/Calcium (Clinimix E 07/25) 1,000 mls @ 82 mls/hr IV .BY DURATION [facility] Stop: 05/16/16 10:59 Last Admin: 05/16/16 03:41 Dose: 82 mls/hr Lactated Ringer's (Ringers, Lactated) 1,000 mls @ 100 mls/hr IV ASDIRECTED [facility] Last Admin: 05/20/16 03:16 Dose: 100 mls/hr Acetaminophen 1,000 mg/ Premix 100 mls @ 400 mls/hr IV Q6H [facility] Stop: 05/15/16 10:14 Last Admin: 05/15/16 10:12 Dose: 400 mls/hr Albumin Human (Flexbumin 25%) 50 mls @ 50 mls/hr IV Q24H SARAHY Stop: 05/23/16 23:00 Last Admin: 05/23/16 09:14 Dose: 50 mls/hr Albumin Human (Flexbumin 25%) 50 mls @ 50 mls/hr IV Q24H SARAHY Stop: 05/23/16 23:00 Last Admin: 05/23/16 10:19 Dose: 50 mls/hr Albumin Human (Flexbumin 25%) 50 mls @ 50 mls/hr IV Q24H SARAHY Stop: 05/23/16 23:00 Last Admin: 05/23/16 12:05 Dose: 50 mls/hr Albumin Human (Flexbumin 25%) 50 mls @ 50 mls/hr IV Q24H SARAHY Stop: 05/23/16 23:00 Last Admin: 05/23/16 11:09 Dose: 50 mls/hr Potassium Phosphate 15 mmole/Lidocaine HCl 2 ml/ Sodium Chloride 157 mls @ 53 mls/hr IV Q3H SARAHY Stop: 05/15/16 15:58 Last Admin: 05/15/16 13:04 Dose: 53 mls/hr Multivitamins/Minerals 10 ml/Chromium/Copper/Manganese/Seleni/Zn 1 ml/ Amino Ac/ Electrol/Dextrose/Calcium 1,011 mls @ 82 mls/hr IV .BY DURATION [facility] Stop: 05/23/16 14:30 Last Admin: 05/22/16 16:20 Dose: 82 mls/hr Amino Ac/Electrol/Dextrose/Calcium (Clinimix E 5/15) 1,000 mls @ 82 mls/hr IV .BY DURATION [facility] Stop: 05/23/16 14:30 Last Admin: 05/23/16 03:51 Dose: 82 mls/hr Potassium Phosphate 15 mmole/ (Sodium Chloride) 155 mls @ 55 mls/hr IV Q3H SARAHY Stop: 05/16/16 16:50 Last Admin: 05/16/16 17:27 Dose: 55 mls/hr Levofloxacin/Dextrose 750 mg/ (Premix) 150 mls @ 100 mls/hr IV Q24H [facility] Last Admin: 05/21/16 11:17 Dose: 100 mls/hr Vancomycin HCl 1.3 gm/ Sodium (Chloride) 250 mls @ 167 mls/hr IV ONETIME ONE Stop: 05/17/16 14:29 Last Admin: 05/17/16 13:18 Dose: 167 mls/hr Vancomycin HCl 1 gm/ Sodium (Chloride) 250 mls @ 167 mls/hr IV Q12H [facility] Last Admin: 05/19/16 00:30 Dose: 167 mls/hr Sodium Chloride (Normal Saline) 70 mls @ 3 mls/sec IV ASDIRECTED [facility] Stop: 05/19/16 08:30 Lactated Ringer's (Ringers, Lactated) Confirm Administered Dose 1,000 mls @ as directed .ROUTE .STK-MED ONE Stop: 05/19/16 13:23 Sodium Chloride (Normal Saline) Confirm Administered Dose 10 mls @ as directed .ROUTE .[facility] ONE Stop: 05/19/16 13:31 Vancomycin HCl 1 gm/ Sodium (Chloride) 250 mls @ 167 mls/hr IV Q8H [facility] Last Admin: 05/21/16 00:14 Dose: 167 mls/hr Fluconazole/Sodium Chloride (400 mg/ Premix) 200 mls @ 100 mls/hr IV Q24H [facility] Last Admin: 05/23/16 08:11 Dose: 100 mls/hr Vancomycin HCl 1.1 gm/ Sodium (Chloride) 250 mls @ 167 mls/hr IV Q8H [facility] Stop: 05/21/16 12:00 Last Admin: 05/21/16 09:50 Dose: 167 mls/hr Vancomycin HCl 1.1 gm/ Sodium (Chloride) 250 mls @ 167 mls/hr IV Q8H [facility] Last Admin: 05/22/16 09:28 Dose: 167 mls/hr Acetaminophen 1,000 mg/ Premix 100 mls @ 400 mls/hr IV Q6H PRN PRN Reason: Fever Stop: 05/22/16 21:01 Last Admin: 05/22/16 16:11 Dose: 400 mls/hr Gentamicin Sulfate 360 mg/ (Sodium Chloride) 159 mls @ 106 mls/hr IV Q24H [facility] Last Admin: 05/22/16 14:13 Dose: 106 mls/hr Acetaminophen 1,000 mg/ Premix 100 mls @ 400 mls/hr IV Q6H PRN PRN Reason: Pain/Fever Stop: 05/23/16 22:01 Last Admin: 05/23/16 21:13 Dose: 400 mls/hr Ibuprofen (Motrin) 600 mg PO Q6H [facility] Last Admin: 05/13/16 05:24 Dose: Not Given Inulin (Fiber Choice) 4.5 gm PO BID [facility] Last Admin: 05/16/16 09:03 Dose: Not Given Iohexol (Omnipaque-300) 50 ml PO .ASDIRECTED [facility] Last Admin: 05/10/16 03:46 Dose: 50 ml Iohexol (Omnipaque-300) 10 ml PO . DIRECTED PRN PRN Reason: RADIOLOGY EXAM Stop: 05/20/16 08:30 Last Admin: 05/19/16 07:44 Dose: 10 ml Iopamidol (Isovue-300 (61%)) 100 ml IV . DIRECTED [facility] Last Admin: 05/13/16 19:22 Dose: 90 ml Iopamidol (Isovue-300 (61%)) 90 ml IV . DIRECTED PRN PRN Reason: RADIOLOGY EXAM Stop: 05/19/16 08:30 Last Admin: 05/19/16 07:44 Dose: 90 ml Ketamine HCl (Ketalar) 30 mg IV ASDIRECTED [facility] Stop: 05/09/16 11:00 Ketamine HCl (Ketalar) 30 mg IV .STK-MED ONE Stop: 05/09/16 09:46 Ketamine HCl (Ketalar) Confirm Administered Dose 500 mg .ROUTE .STK-MED ONE Stop: 05/14/16 08:51 Lactobacillus Rhamnosus (Culturelle) 2 cap PO BID [facility] Last Admin: 05/16/16 09:04 Dose: Not Given Lidocaine/Epinephrine (Xylocaine 1% With Epinephrine 1:100,000) Confirm Administered Dose 50 ml .ROUTE .STK-MED ONE Stop: 05/11/16 06:49 Last Admin: 05/11/16 09:09 Dose: 32 ml Lidocaine/Epinephrine (Xylocaine 1% With Epinephrine 1:100,000) Confirm Administered Dose 50 ml .ROUTE .STK-MED ONE Stop: 05/17/16 06:47 Last Admin: 05/17/16 08:07 Dose: 20 ml Lidocaine/Epinephrine (Xylocaine 1% With Epinephrine 1:100,000) Confirm Administered Dose 50 ml .ROUTE .STK-MED ONE Stop: 05/21/16 06:21 Last Admin: 05/21/16 08:48 Dose: 10 ml Meperidine HCl (Demerol) 50 mg IM ASDIRECTED PRN PRN Reason: PAIN Stop: 05/10/16 14:45 Meropenem (Merrem) Confirm Administered Dose 500 mg .ROUTE .STK-MED ONE Stop: 05/09/16 08:14 Last Admin: 05/09/16 10:24 Dose: 500 mg Meropenem (Merrem) Confirm Administered Dose 500 mg .ROUTE .STK-MED ONE Stop: 05/11/16 06:49 Last Admin: 05/11/16 09:10 Dose: 500 mg Meropenem (Merrem) Confirm Administered Dose 500 mg .ROUTE .STK-MED ONE Stop: 05/14/16 07:31 Last Admin: 05/14/16 10:19 Dose: 500 mg Meropenem (Merrem) Confirm Administered Dose 500 mg .ROUTE .STK-MED ONE Stop: 05/14/16 10:03 Last Admin: 05/14/16 10:19 Dose: 500 mg Meropenem (Merrem) Confirm Administered Dose 500 mg .ROUTE .STK-MED ONE Stop: 05/17/16 06:46 Last Admin: 05/17/16 08:12 Dose: 500 mg Meropenem (Merrem) Confirm Administered Dose 500 mg .ROUTE .STK-MED ONE Stop: 05/19/16 12:10 Last Admin: 05/19/16 13:30 Dose: 500 mg Meropenem (Merrem) Confirm Administered Dose 500 mg .ROUTE .STK-MED ONE Stop: 05/19/16 13:31 Last Admin: 05/19/16 14:25 Dose: 500 mg Meropenem (Merrem) Confirm Administered Dose 500 mg .ROUTE .STK-MED ONE Stop: 05/21/16 06:20 Last Admin: 05/21/16 08:51 Dose: 500 mg Metoclopramide HCl (Reglan) 10 mg IV Q6H [facility] Last Admin: 05/14/16 08:03 Dose: 10 mg Midazolam HCl (Versed 1 Mg/Ml) Confirm Administered Dose 2 mg .ROUTE .STK-MED ONE Stop: 05/14/16 07:44 Midazolam HCl (Versed 1 Mg/Ml) Confirm Administered Dose 2 mg .ROUTE .STK-MED ONE Stop: 05/17/16 07:22 Midazolam HCl (Versed 1 Mg/Ml) Confirm Administered Dose 2 mg .ROUTE .STK-MED ONE Stop: 05/19/16 12:13 Midazolam HCl (Versed 1 Mg/Ml) Confirm Administered Dose 2 mg .ROUTE .STK-MED ONE Stop: 05/21/16 08:19 Naloxone HCl (Narcan) 0.4 mg IV ASDIRECTED PRN PRN Reason: ITCHING Neostigmine Methylsulfate (Neostigmine) Confirm Administered Dose 5 mg .ROUTE .ST-MED ONE Stop: 05/09/16 08:37 Neostigmine Methylsulfate (Neostigmine) Confirm Administered Dose 5 mg .ROUTE .ST-MED ONE Stop: 05/14/16 07:44 Neostigmine Methylsulfate (Neostigmine) Confirm Administered Dose 5 mg .ROUTE .ST-MED ONE Stop: 05/19/16 12:14 Scopolamine Patch (Check) 1 each TOP DAILY [facility] Last Admin: 05/16/16 09:03 Dose: Not Given Check Fentanyl Patch (Daily) 1 each TOP DAILY [facility] Last Admin: 05/15/16 09:06 Dose: Not Given Ondansetron HCl (Zofran) Confirm Administered Dose 4 mg .ROUTE .ST-MED ONE Stop: 05/09/16 08:37 Ondansetron HCl (Zofran) Confirm Administered Dose 4 mg .ROUTE .ST-MED ONE Stop: 05/14/16 07:44 Ondansetron HCl (Zofran) Confirm Administered Dose 4 mg .ROUTE .ST-MED ONE Stop: 05/19/16 12:14 Pantoprazole Sodium (Protonix Iv) 40 mg IVPUSH Q24H [facility] Last Admin: 05/11/16 16:53 Dose: 40 mg Pantoprazole Sodium (Protonix) 40 mg PO Q24H [facility] Last Admin: 05/13/16 16:59 Dose: 40 mg Phenylephrine HCl (Yan-Synephrine) Confirm Administered Dose 10 mg .ROUTE .STK- MED ONE Stop: 05/14/16 09:27 Propofol (Diprivan 20 Ml) Confirm Administered Dose 200 mg .ROUTE .ST-MED ONE Stop: 05/09/16 08:37 Propofol (Diprivan 20 Ml) Confirm Administered Dose 200 mg .ROUTE .STK-MED ONE Stop: 05/11/16 07:00 Propofol (Diprivan 20 Ml) Confirm Administered Dose 200 mg .ROUTE .STK-MED ONE Stop: 05/14/16 07:44 Propofol (Diprivan 20 Ml) Confirm Administered Dose 200 mg .ROUTE .STK-MED ONE Stop: 05/17/16 07:22 Propofol (Diprivan 20 Ml) Confirm Administered Dose 200 mg .ROUTE .STK-MED ONE Stop: 05/19/16 12:14 Propofol (Diprivan 20 Ml) Confirm Administered Dose 200 mg .ROUTE .STK-MED ONE Stop: 05/21/16 08:19 Rocuronium [place] (Zemuron) Confirm Administered Dose 100 mg .ROUTE .ST-MED ONE Stop: 05/09/16 08:37 Rocuronium [place] (Zemuron) Confirm Administered Dose 50 mg .ROUTE .STK-MED ONE Stop: 05/14/16 07:44 Rocuronium [place] (Zemuron) Confirm Administered Dose 50 mg .ROUTE .ST-MED ONE Stop: 05/19/16 12:14 Scopolamine (Transderm-Scop) 1.5 mg TOP Q72H [facility] Stop: 05/12/16 06:00 Last Admin: 05/09/16 07:53 Dose: 1.5 mg Scopolamine (Transderm-Scop) Confirm Administered Dose 1.5 mg .ROUTE .ST-MED ONE Stop: 05/09/16 08:37 Scopolamine (Transderm-Scop) 1.5 mg TOP ASDIRECTED [facility] Stop: 05/12/16 16:00 Scopolamine (Transderm-Scop) 1.5 mg TOP Q72H [facility] Last Admin: 05/12/16 09:17 Dose: 1.5 mg Sodium Chloride (Saline Flush) 10 ml FLUSH ONETIME ONE Stop: 05/13/16 18:10 Last Admin: 05/13/16 19:22 Dose: 10 ml Succinylcholine Chloride (Succinylcholine In Ns Pf) Confirm Administered Dose 200 mg .ROUTE .STK-MED ONE Stop: 05/09/16 08:37 Succinylcholine Chloride (Succinylcholine In Ns Pf) Confirm Administered Dose 200 mg .ROUTE .STK-MED ONE Stop: 05/14/16 07:44 Succinylcholine Chloride (Succinylcholine In Ns Pf) Confirm Administered Dose 200 mg .ROUTE .STK-MED ONE Stop: 05/19/16 12:14 Vancomycin HCl (Vancomycin) 1 gm IV .PHARMACY TO DOSE SARAHY - Exam Quality Assessment: No: supplemental oxygen General: alert, oriented, cooperative, no acute distress Neck: supple Lungs: Decreased breath sounds (left lung base), Rales (few left lung base). No : Wheezing Cardiovascular: Regular Rhythm. No: Tachycardia Abdomen: bowel sounds present, soft, no distension Back Exam: normal inspection Extremities: no edema, no cyanosis Skin: warm, dry Psy/Mental Status: alert, normal affect Consult PN Assessment/Plan Procedures: Procedures ASSAY OF LACTIC ACID (03/04/16) ASSAY OF MAGNESIUM (04/07/16) ASSAY OF PHOSPHORUS (04/07/16) ASSAY THYROID STIM HORMONE (10/08/15) BLOOD TYPING SEROLOGIC ABO (04/14/15) BLOOD TYPING SEROLOGIC RH(D) (04/14/15) C-REACTIVE PROTEIN (04/07/16) COMPLETE CBC AUTOMATED (04/07/16) COMPLETE CBC W/AUTO DIFF WBC (04/07/16) COMPREHEN METABOLIC PANEL (04/07/16) CT ABD & PELV W/CONTRAST (03/04/16) CULTURE SCREEN ONLY (11/10/15) ELECTROCARDIOGRAM TRACING (04/14/15) EMERGENCY DEPT VISIT (04/07/16) HYDRATE IV INFUSION ADD-ON (04/07/16) MEASURE BLOOD OXYGEN LEVEL (01/01/16) METABOLIC PANEL TOTAL CA (03/04/16) PT EVALUATION (11/10/15) RBC ANTIBODY SCREEN (04/14/15) ROUTINE VENIPUNCTURE (04/07/16) SPECIAL STAINS GROUP 2 (04/14/15) THER/PROPH/DIAG INJ IV PUSH (04/07/16) THER/PROPH/DIAG IV INF ADDON (03/04/16) THER/PROPH/DIAG IV INF INIT (03/04/16) THERAPEUTIC ACTIVITIES (11/10/15) TISSUE EXAM BY PATHOLOGIST (01/01/16) TISSUE EXAM BY PATHOLOGIST (01/01/16) TISSUE EXAM BY PATHOLOGIST (04/14/15) TISSUE EXAM BY PATHOLOGIST (04/14/15) TX/PRO/DX INJ NEW DRUG ADDON (04/07/16) URINALYSIS AUTO W/SCOPE (04/07/16) X-RAY EXAM OF ABDOMEN (04/07/16) X-RAY EXAM SERIES ABDOMEN (04/07/16) X-RAY UPPER GI DELAY W/O KUB (03/04/16) X-RAY UPPER GI&SMALL INTEST (04/07/16) (1) Elevated bilirubin SNOMED Code(s): 261771247 Code(s): R17 - UNSPECIFIED JAUNDICE Current Visit: Yes Problem List Initiated/Reviewed/Updated: Yes My Orders last 24 hours: My Active Orders 05/24/16 10:04 Transfer Patient (Change bed) [ADT] Routine 05/24/16 10:05 Discontinue Telemetry Monitoring [Cardiac Monitoring Discontinue] [RC] Click to Edit 05/25/16 05:00 CBC W/O DIFF,HEMOGRAM [HEME] Timed (1) COMPREHENSIVE METABOLIC PN,CMP [CHEM] Timed MAGNESIUM [CHEM] Timed Plan: Assessment and Plan - Abdominal abscess with peritonitis secondary to JJ leak - status post exploratory laparotomy 3/ and again last week because of splenic abscess. Cultures from wound and drains are growing Escherichia coli, Enterobacter, and relatively rare species of enterococcus it is often resistant to vancomycin. white blood cell count continues to improve and clinically she looks much better. Abdominal pain is under good control. -continue Zyvox and gentamicin IV (this combination should cover all of the above organisms) -plan to de-escalated antibiotics when we transitioned to oral medications -Followup cultures, enterococcus is being sent to reference lab for sensitivities -additional postop cares per surgical team -Continue nutritional support with TPN -plan to transition to oral pain medications tomorrow if we are able to advance her diet Hypoxia - small pleural effusions but clinically improving. Patient is diuresing on her own without any medication supplementation. She is off oxygen as of this morning. -Monitor urine output -Wean oxygen as able Recurrent fever - likely secondary to abdominal source versus medication versus atelectasis. -Antibiotic adjustments as above I believe she is safe for transfer out of the intensive care unit today and transfer orders have been completed. She does not require telemetry or pulse oximetry at this time. Mendoza catheter will also be removed. Eduard Bedolla M.D.
[2016-05-24] MEDS: Linezolid 600 MG in Premix Bag 1 BAG IV SCH ×2 (10:47→22:56)
[2016-05-24] MEDS: GENTAMICIN IV SCH (13:49)
[2016-05-24] MEDS: SODIUM CHLORIDE 0.9% IV SCH (13:49)
[2016-05-24] MEDS: Pantoprazole 40 MG Vial IV SCH (15:37)
[2016-05-24] MEDS: HYDROmorphone/Normal Saline 15 MG/30 ML PCA IV PRN (16:45)
[2016-05-25] MEDS: Acetaminophen 1,000 MG in Premix Bag 1 BAG IV PRN ×4 (00:27→21:47)
[2016-05-25] MEDS: 1: AA 5%/Calcium/D15W/Lytes 1,000 ML with MVI, Adult with Vitamin K 10 ML, Chromium/Copp IV SCH ×6 (05:38→17:29)
[2016-05-25] MEDS ORDERED: Central Total Parenteral Nutrition Bag SCH (07:45)
--- NOTE | 2016-05-25 08:49 | PN ---
DATE OF SERVICE: 05/24/2016 SUBJECTIVE: Carolyn's vital signs have been stable. She did have a temp max of 98.1. Her pain has been controlled. She has been moving better. She does prefer the Tylenol IV, has been helping her the most with the pain. Oral intake in the past 24 hours was ice chips. She is passing flatus. Her LACIE drains have put out from A to J, 10, 13, 13, 30, 35, 20, 15, 20, 45, and 55. The one midline LACIE drain has been having some air in it but once it is collapsed, it will fill with air within an hour. REVIEW OF SYSTEMS: Otherwise, remainder of review of systems negative for any pertinent positives and negatives. OBJECTIVE: GENERAL: Carolyn Hanks is a 55-year-old female. VITAL SIGNS: 99.9, 92, 18. Blood pressure 125/53. HEENT: Negative. NECK: Supple. HEART: Regular rate and rhythm. LUNGS: Clear. ABDOMEN: She has the occlusive dressing on and is dry and intact. LACIE drains as above. EXTREMITIES: Without peripheral edema. SCDs are on. ASSESSMENT: 1. 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 Contracted painful umbilicus, florid inflammatory adhesions of distal [place] limb and jejunostomy and focal area of pelvic endometriosis. Date of surgery 05/09/2016. 2. Delayed primary closure, 05/11/2016. 3. Exploratory laparotomy with central vein insertion on 05/13/2016. 4. Drainage of intraabdominal abscess, irrigation of diffuse peritonitis, small-bowel resection, and separate jejunostomy to re-establish [place]-en-Y small bowel anatomy of the leak of the jejunostomy with focal abscess in the left upper quadrant and diffuse peritonitis involving the lower two-thirds of abdomen and pelvis, and limited peripheral venous abscess, 05/14/2016. 5. Delayed primary closure, 05/17/2016. 6. 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 7. Delayed primary closure on 05/21/2016. PLAN: Continue IV Tylenol, same TPN rate and content. Remainder of orders to be written per hospitalist, Eduard Bedolla MD. Labs were reviewed. Hemoglobin this morning was 7.8, stable from the day prior. White count is down to 24,000. Gail Pedro PA-C /[id number]
[2016-05-25] MEDS: Lubiprostone 24 MCG Cap PO SCH ×2 (08:51→17:29)
--- NOTE | 2016-05-25 09:20 | PN ---
DATE OF SERVICE: 05/25/2016 SUBJECTIVE: Carolyn is a pleasant 55-year-old female. Hemoglobin this morning is 7.7, platelets are 904. LACIE drains A to J respectively, #A put out serosanguineous drainage 10 mL, B put out a green-tannish drainage 40 mL, C put out serous drainage of 10, D put out 10 serosanguineous, E put out zero, F put out 5 mL of a light pink clear, G put out 25 mL of reyes serous drainage, H put out 15 mL of a milky reyes drainage, I put out 20 mL of serosanguineous, and J put out 10 mL of a T. pinkish drainage, hemoglobin was 7.7, white count 15.9, temp max of 100.4. No BM but is passing a lot of flatus. She states she is having some smear of BM when she is wiping. TPN is running without any difficulty. She is requesting bowel stimulation. REVIEW OF SYSTEMS: Remainder of review of systems negative for any pertinent positives and negatives. OBJECTIVE: GENERAL: Carolyn Hanks is a pleasant 55-year-old female. VITAL SIGNS: TPR 98.1, 81, 16. Blood pressure 120/79. HEENT: Negative. NECK: Supple. HEART: Regular rate and rhythm. LUNGS: Clear. ABDOMEN: Occlusive dressings are on. LACIE drains as stated above. No distention active bowel sounds. It is soft and normally expected tenderness postoperatively. EXTREMITIES: SCDs are on and there is no peripheral edema. ASSESSMENT: 1. Exploratory laparotomy, total abdominal colectomy with ileorectal anastomosis, revision of small bowel component of the [place]-en-Y gastric bypass, umbilectomy, ablation of focal area of pelvic endometriosis, left pelvic sidewall, and placement of Interceed mesh to displace small bowel from pelvic and abdominal wall to limit recurrent adhesive formation 05/09/2016. 2. Delayed primary closure for open incision on 05/11/2016. 3. Insertion of left subclavian triple lumen, drainage of intraabdominal abscess, irrigation of diffuse peritonitis, small bowel resection, separate jejunostomy to re- establish [place]-en-Y small bowel anatomy for leak of the jejunostomy, focal abscess of the left upper quadrant and diffuse peritonitis involving the lower two-thirds of the abdomen and pelvis and limited pelvic anus abscess on 05/14/2016. 4. Delayed primary closure, 05/17/2016. 5. 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 6. Delayed primary closure 05/21/2016. PLAN: 1. IV Tylenol ordered x24 hours. 2. Step-1 gastric bypass diet. 3. Amitiza 24 mcg b.i.d. 4. Senna Plus 1 tablet p.o. twice daily. 5. Continue same TPN rate and content. 6. Rest of the orders will be written per Eduard Bedolla MD. Gail Pedro PA-C /[id number]
--- NOTE | 2016-05-25 10:22 | PCM.CONSN ---
- General Info Date of Service: 05/25/16 Functional Status: Reports: pain controlled, ambulating - Review of Systems General: Reports: Weakness Gastrointestinal: Reports: Abdominal pain, Flatus Psychiatric: Denies: confusion Systems Review Comment:: no acute events overnight. Abdominal pain has remained stable. Tolerated only a few sips of clear liquids this morning before she had some upper abdominal discomfort. No significant nausea and no vomiting. Passing some gas but no bowel movement. She has been up and walking around. Requires some oxygen when she's sleeping but does not require when she sits up during the day. LACIE drainage has been fairly small quantity. Temperature curve has been improving. - Patient Data Vitals - most recent: Last Vital Signs Temp 36.6 C 05/25/16 07:32 Pulse 72 05/25/16 07:32 Resp 16 05/25/16 07:32 BP 133/76 05/25/16 07:32 Pulse Ox 100 05/25/16 07:32 Weight - most recent: 60.781 kg I&O - last 24 hours: Intake & Output 05/24/16 05/25/16 05/25/16 22:59 06:59 14:59 Intake Total 1444 1327 Output Total 2040 2795 Balance -6 1464 Lab Results last 24 hrs: Laboratory Results - last 24 hr 05/25/16 05/25/16 Range/Units 04:20 05:00 WBC 15.9 H (4.5-11.0) K/uL RBC 2.75 L (3.30-5.50) M/uL Hgb 7.7 L (12.0-15.0) g/dL Hct 23.4 L (36.0-48.0) % MCV 85 (80-98) fL MCH 28 (27-31) pg MCHC 33 (32-36) % Plt Count 904 H (150-400) K/uL Sodium 139 L (140-148) mmol/L Potassium 4.3 (3.6-5.2) mmol/L Chloride 104 (100-108) mmol/L Carbon Dioxide 28 (21-32) mmol/L Anion Gap 11.3 (5.0-14.0) mmol/L BUN 16 (7-18) mg/dL Creatinine 0.5 L (0.6-1.0) mg/dL Est Cr Clr Drug Dosing 119.11 mL/min Estimated GFR (MDRD) > 60 (>60) Glucose 101 (74-106) mg/dL Calcium 8.6 (8.5-10.1) mg/dL Magnesium 1.9 (1.8-2.4) mg/dL Total Bilirubin 0.4 (0.2-1.0) mg/dL AST 20 (15-37) U/L ALT 39 (12-78) U/L Alkaline Phosphatase 64 (46-116) U/L Total Protein 6.1 L (6.4-8.2) g/dL Albumin 2.7 L (3.4-5.0) g/dL Globulin 3.4 (2.3-3.5) g/dL Albumin/Globulin Ratio 0.8 L (1.2-2.2) Med Orders - Current: Current Medications Acetaminophen (Tylenol) 650 mg RECTAL Q4H PRN PRN Reason: Fever Last Admin: 05/18/16 05:53 Dose: 650 mg Bacitracin (Bacitracin Oint 1 Gm) 1 dose TOP BID PRN PRN Reason: burn Last Admin: 05/12/16 20:31 Dose: 2 dose Dimethicone/Zinc Oxide (Rash Relief-Zinc Oxide [place]) 1 gm TOP ASDIRECTED PRN PRN Reason: Other Last Admin: 05/12/16 20:30 Dose: 1 bot Diphenhydramine HCl (Benadryl) 25 - 50 mg IVPUSH Q4H PRN PRN Reason: ITCHING Heparin Sodium (Porcine) (Heparin Lock Flush 100 Units/Ml Syringe) 500 units IVPUSH ASDIRECTED PRN PRN Reason: PROGRAM THERAPIST Last Admin: 05/23/16 21:27 Dose: 500 units Hydromorphone HCl (Dilaudid Rental Coordinator 15 Mg In Ns 30 Ml) 0 mg IV ASDIRECTED PRN; Protocol PRN Reason: SLIP INJECTOR AND APPLICATOR PAIN CONTROL Last Admin: 05/24/16 16:45 Dose: 15 mg Hydroxyzine HCl (Vistaril) 100 mg IM Q4H PRN PRN Reason: PAIN NOT CONTROLLED BY SLIP INJECTOR AND APPLICATOR Last Admin: 05/21/16 10:40 Dose: 100 mg Lactated Ringer's (Ringers, Lactated) 1,000 mls @ 0 mls/hr IV ASDIRECTED SARAHY PRN Reason: KVO Last Admin: 05/23/16 22:36 Dose: 20 mls/hr Linezolid 600 mg/ Premix 300 mls @ 300 mls/hr IV Q12H [facility] Last Admin: 05/24/16 22:56 Dose: 300 mls/hr Gentamicin Sulfate 420 mg/ (Sodium Chloride) 160.5 mls @ 107 mls/hr IV Q24H [facility] Last Admin: 05/24/16 13:49 Dose: 107 mls/hr Multivitamins/Minerals 10 ml/Chromium/Copper/Manganese/Seleni/Zn 1 ml/ Amino Ac/ Electrol/Dextrose/Calcium 1,011 mls @ 82 mls/hr IV .BY DURATION [facility] Last Admin: 05/24/16 16:46 Dose: 82 mls/hr Amino Ac/Electrol/Dextrose/Calcium (Clinimix E 07/25) 1,000 mls @ 82 mls/hr IV .BY DURATION [facility] Last Admin: 05/25/16 05:38 Dose: 82 mls/hr Acetaminophen 1,000 mg/ Premix 100 mls @ 400 mls/hr IV Q6H PRN PRN Reason: Pain Stop: 05/26/16 07:39 Last Admin: 05/25/16 08:44 Dose: 400 mls/hr Lubiprostone (Amitiza) 24 mcg PO BIDMEALS [facility] Last Admin: 05/25/16 08:51 Dose: 24 mcg Naloxone HCl (Narcan) 0.1 mg IV ASDIRECTED PRN PRN Reason: decreased respiratory rate Non-Formulary Medication (Total Parenteral Nutrition, Central) 1,000 ml .XX .Continue Order [facility] Stop: 05/25/16 16:00 Ondansetron HCl (Zofran) 4 mg IVPUSH Q4H PRN PRN Reason: Nausea/Vomiting Last Admin: 05/20/16 21:17 Dose: 4 mg Pantoprazole Sodium (Protonix Iv) 40 mg IV Q24H [facility] Last Admin: 05/24/16 15:37 Dose: 40 mg Senna/Docusate Sodium (Senna Plus) 1 tab PO BID [facility] Last Admin: 05/25/16 08:51 Dose: 1 tab Discontinued Medications Acetaminophen (Tylenol) 650 mg PO Q6H [facility] Last Admin: 05/16/16 09:03 Dose: Not Given Albuterol/Ipratropium (Duoneb 3.0-0.5 Mg/3 Ml) 3 ml NEB ONETIME STA Stop: 05/13/16 19:09 Last Admin: 05/13/16 19:21 Dose: 3 ml Alvimopan (Entereg) 12 mg PO ONETIME ONE Stop: 05/09/16 08:31 Last Admin: 05/09/16 08:30 Dose: 12 mg Alvimopan (Entereg) 12 mg PO Q12H [facility] Stop: 05/16/16 09:01 Last Admin: 05/10/16 09:04 Dose: 12 mg Bisacodyl (Dulcolax) 10 mg PO BID [facility] Last Admin: 05/11/16 09:52 Dose: Not Given Bupivacaine HCl (Marcaine 0.5%) Confirm Administered Dose 50 ml .ROUTE .STK-MED ONE Stop: 05/11/16 06:49 Last Admin: 05/11/16 09:09 Dose: 32 ml Bupivacaine HCl (Marcaine 0.5%) Confirm Administered Dose 50 ml .ROUTE .STK-MED ONE Stop: 05/17/16 06:47 Last Admin: 05/17/16 08:07 Dose: 20 ml Bupivacaine HCl (Marcaine 0.5%) Confirm Administered Dose 50 ml .ROUTE .STK-MED ONE Stop: 05/19/16 14:06 Bupivacaine HCl (Marcaine 0.5%) Confirm Administered Dose 50 ml .ROUTE .STK-MED ONE Stop: 05/21/16 06:21 Last Admin: 05/21/16 08:48 Dose: 10 ml Bupivacaine HCl/Epinephrine Bitart (Marcaine 0.5%/Epinephrine 1:200,000) Confirm Administered Dose 50 ml .ROUTE .STK-MED ONE Stop: 05/19/16 14:06 Last Admin: 05/19/16 14:10 Dose: 25 ml Cefoxitin Sodium (Mefoxin) Confirm Administered Dose 2 gm .ROUTE .STK-MED ONE Stop: 05/09/16 06:55 Neomycin/Polymyxin 1 ml/ (Sodium Chloride 750 ml) 0 ml .XX ONETIME ONE Stop: 05/09/16 09:16 Last Admin: 05/09/16 13:25 Dose: Not Given Cyanocobalamin (Vitamin B12) 1,000 mcg IM ONETIME ONE Stop: 05/11/16 09:01 Last Admin: 05/11/16 09:53 Dose: 1,000 mcg Cyclobenzaprine HCl (Flexeril) 10 mg PO Q6H PRN PRN Reason: Muscle Spasm Last Admin: 05/13/16 06:22 Dose: 10 mg Dexamethasone (Dexamethasone) Confirm Administered Dose 4 mg .ROUTE .STK-MED ONE Stop: 05/09/16 08:37 Dexamethasone (Dexamethasone) Confirm Administered Dose 4 mg .ROUTE .STK-MED ONE Stop: 05/14/16 07:44 Dexamethasone (Dexamethasone) Confirm Administered Dose 4 mg .ROUTE .STK-MED ONE Stop: 05/19/16 12:14 Diatrizoate Meglum/Diatrizoate Sod (Gastrografin 37%) 30 ml PO . DIRECTED [facility] Stop: 05/13/16 19:46 Last Admin: 05/13/16 19:33 Dose: 30 mg Diphenhydramine HCl (Benadryl) 25 mg IVPUSH Q6H PRN PRN Reason: ITCHING Diphenoxylate HCl/Atropine (Lomotil 0.025-2.5 Mg) 1 tab PO ONETIME ONE Stop: 05/12/16 10:36 Last Admin: 05/12/16 10:55 Dose: 1 tab Diphenoxylate HCl/Atropine (Lomotil 0.025-2.5 Mg) 1 tab PO Q6H PRN PRN Reason: Diarrhea Edrophonium Chloride (Enlon) Confirm Administered Dose 150 mg .ROUTE .STK-MED ONE Stop: 05/14/16 10:59 Edrophonium Chloride (Enlon) Confirm Administered Dose 150 mg .ROUTE .STK-MED ONE Stop: 05/19/16 14:23 Fentanyl (Sublimaze) Confirm Administered Dose 500 mcg .ROUTE .STK-MED ONE Stop: 05/09/16 08:37 Fentanyl (Sublimaze) Confirm Administered Dose 100 mcg .ROUTE .STK-MED ONE Stop: 05/09/16 08:39 Fentanyl (Duragesic) 12 mcg TRDERM Q72H [facility] Last Admin: 05/13/16 13:15 Dose: Not Given Fentanyl (Sublimaze) Confirm Administered Dose 250 mcg .ROUTE .STK-MED ONE Stop: 05/14/16 07:44 Fentanyl (Duragesic) 25 mcg TRDERM Q72H [facility] Last Admin: 05/14/16 16:58 Dose: Not Given Fentanyl (Sublimaze) Confirm Administered Dose 100 mcg .ROUTE .STK-MED ONE Stop: 05/17/16 07:22 Fentanyl (Sublimaze) Confirm Administered Dose 250 mcg .ROUTE .STK-MED ONE Stop: 05/19/16 12:13 Fentanyl (Sublimaze) Confirm Administered Dose 100 mcg .ROUTE .STK-MED ONE Stop: 05/21/16 08:19 Furosemide (Lasix) 20 mg IVPUSH ONETIME ONE Stop: 05/13/16 18:01 Last Admin: 05/13/16 18:21 Dose: 20 mg Gabapentin (Neurontin) 300 mg PO ONETIME ONE Stop: 05/09/16 08:16 Last Admin: 05/09/16 07:53 Dose: 300 mg Gabapentin (Neurontin) 300 mg PO TID SARAHY Last Admin: 05/12/16 21:54 Dose: 300 mg Glycopyrrolate () Confirm Administered Dose 1 mg .ROUTE .STK-MED ONE Stop: 05/09/16 08:37 Glycopyrrolate () Confirm Administered Dose 1 mg .ROUTE .STK-MED ONE Stop: 05/14/16 07:44 Glycopyrrolate () Confirm Administered Dose 1 mg .ROUTE .STK-MED ONE Stop: 05/19/16 12:14 Heparin Sodium (Porcine) (Heparin Sodium) 5,000 units SUBCUT Q12H [facility] Stop: 05/10/16 20:00 Last Admin: 05/10/16 06:23 Dose: 5,000 units Heparin Sodium (Porcine) (Heparin Sodium) 5,000 units SUBCUT Q12H [facility] Heparin Sodium (Porcine) (Heparin Sodium) 5,000 units SUBCUT ONETIME ONE Stop: 05/10/16 17:01 Last Admin: 05/10/16 16:45 Dose: 5,000 units Heparin Sodium (Porcine) (Heparin Lock Flush 100 Units/Ml Syringe) 500 units FLUSH .STK-MED ONE Stop: 05/14/16 10:20 Last Admin: 05/14/16 10:19 Dose: 500 units Heparin Sodium (Porcine) (Heparin Lock Flush 100 Units/Ml Syringe) Confirm Administered Dose 500 units .ROUTE .STK-MED ONE Stop: 05/15/16 17:28 Last Admin: 05/15/16 19:22 Dose: Not Given Heparin Sodium (Porcine) (Heparin Lock Flush 100 Units/Ml Syringe) Confirm Administered Dose 500 units .ROUTE .STK-MED ONE Stop: 05/19/16 21:35 Last Admin: 05/19/16 21:50 Dose: 500 units Hydromorphone HCl (Dilaudid) 2 - 4 mg PO Q4H PRN PRN Reason: PAIN Last Admin: 05/14/16 02:12 Dose: 4 mg Hydroxyzine HCl (Vistaril) 75 - 100 mg IM Q4H PRN PRN Reason: PAIN NOT CONTROLLED BY SLIP INJECTOR AND APPLICATOR Last Admin: 05/13/16 02:48 Dose: 100 mg Dextrose/Lactated Ringer's (Dextrose 5%-Lactated Ringers) 1,000 mls @ 100 mls/ hr IV ASDIRECTED SARAHY Last Admin: 05/09/16 07:55 Dose: 100 mls/hr Cefoxitin Sodium 2 gm/ Sodium (Chloride) 50 mls @ 100 mls/hr IV ONETIME ONE Stop: 05/09/16 09:44 Last Admin: 05/09/16 09:08 Dose: 100 mls/hr Fentanyl 2,500 mcg/ Sodium (Chloride) 250 mls @ 0 mls/hr EPIDUR TITRATE SARAHY; Titrate PRN Reason: Protocol Last Admin: 05/10/16 09:12 Dose: 10 ml/hr, 10 mls/hr Ketamine HCl 100 mg/ Sodium (Chloride) 100 mls @ 18 mls/hr IV ASDIRECTED SARAHY Stop: 05/09/16 13:00 Lactated Ringer's (Ringers, Lactated) Confirm Administered Dose 1,000 mls @ as directed .ROUTE .STK-MED ONE Stop: 05/09/16 08:37 Sodium Chloride (Normal Saline) Confirm Administered Dose 10 mls @ as directed .ROUTE .STK-MED ONE Stop: 05/09/16 08:39 Lidocaine HCl (Xylocaine-Mpf 1%) Confirm Administered Dose 2 mls @ as directed .ROUTE .STK-MED ONE Stop: 05/09/16 09:24 Lactated Ringer's (Ringers, Lactated) Confirm Administered Dose 1,000 mls @ as directed .ROUTE .STK-MED ONE Stop: 05/09/16 11:10 Lactated Ringer's (Ringers, Lactated) 500 mls @ 500 mls/hr IV .BOLUS ONE Stop: 05/09/16 14:59 Last Admin: 05/09/16 14:03 Dose: 500 mls/hr Dextrose/Lactated Ringer's (Dextrose 5%-Lactated Ringers) 1,000 mls @ 200 mls/ hr IV ASDIRECTED [facility] Stop: 05/10/16 17:59 Last Admin: 05/10/16 15:05 Dose: 200 mls/hr Multivitamins/Minerals 10 ml/Thiamine HCl 200 mg/ Chromium/Copper/Manganese/ Seleni/Zn 1 ml/ Dextrose/Lactated Ringer's 1,013 mls @ 100 mls/hr IV DAILY@ 1600 [facility] Last Admin: 05/14/16 16:33 Dose: Not Given Cefoxitin Sodium 2 gm/ Sodium (Chloride) 50 mls @ 100 mls/hr IV Q6H [facility] Last Admin: 05/12/16 03:39 Dose: 100 mls/hr Acetaminophen 1,000 mg/ Premix 100 mls @ 400 mls/hr IV Q6H [facility] Stop: 05/10/16 04:14 Last Admin: 05/10/16 04:19 Dose: 400 mls/hr Ketamine HCl 100 mg/ Sodium (Chloride) 101 mls @ as directed IV .STK-MED ONE Stop: 05/09/16 09:46 Dextrose/Lactated Ringer's (Dextrose 5%-Lactated Ringers) 1,000 mls @ 100 mls/ hr IV ASDIRECTED [facility] Last Admin: 05/13/16 02:59 Dose: 100 mls/hr Magnesium Sulfate 2 gm/ Sodium (Chloride) 54 mls @ 27 mls/hr IV ONETIME ONE Stop: 05/13/16 11:59 Last Admin: 05/13/16 10:01 Dose: 27 mls/hr Magnesium Sulfate 2 gm/ Premix 50 mls @ 25 mls/hr IV Q6H [facility] Stop: 05/15/16 05:59 Last Admin: 05/16/16 09:03 Dose: Not Given Potassium Phosphate 20 mmole/ (Sodium Chloride) 256.6667 mls @ 85 mls/hr IV Q3H [facility] Stop: 05/13/16 18:59 Last Admin: 05/13/16 19:49 Dose: 85 mls/hr Dextrose/Lactated Ringer's (Dextrose 5%-Lactated Ringers) 1,000 mls @ 80 mls/ hr IV ASDIRECTED [facility] Stop: 05/14/16 14:29 Last Admin: 05/13/16 18:20 Dose: 25 mls/hr Meropenem 500 mg/ Sodium (Chloride) 50 mls @ 100 mls/hr IV ONETIME ONE Stop: 05/13/16 18:29 Last Admin: 05/13/16 18:28 Dose: 100 mls/hr Sodium Chloride (Normal Saline) 70 mls @ 3 mls/sec IV ASDIRECTED [facility] Last Admin: 05/13/16 19:22 Dose: 3 mls/sec Meropenem 500 mg/ Sodium (Chloride) 50 mls @ 100 mls/hr IV Q6H [facility] Last Admin: 05/23/16 10:20 Dose: 100 mls/hr Aztreonam 1 gm/ Sodium (Chloride) 50 mls @ 100 mls/hr IV Q8HR [facility] Last Admin: 05/14/16 05:39 Dose: 100 mls/hr Aztreonam/Dextrose 1 gm/ (Premix) 50 mls @ 100 mls/hr IV Q8H [facility] Last Admin: 05/21/16 14:02 Dose: 100 mls/hr Sodium Chloride (Normal Saline) Confirm Administered Dose 10 mls @ as directed .ROUTE .[facility] Stop: 05/14/16 08:52 Sodium Chloride (Normal Saline) Confirm Administered Dose 10 mls @ as directed .ROUTE .[facility] Stop: 05/14/16 09:28 Lactated Ringer's (Ringers, Lactated) Confirm Administered Dose 1,000 mls @ as directed .ROUTE .[facility] ONE Stop: 05/14/16 09:34 Multivitamins/Minerals 10 ml/Chromium/Copper/Manganese/Seleni/Zn 1 ml/ Amino Ac/ Electrol/Dextrose/Calcium 1,011 mls @ 82 mls/hr IV .BY DURATION [facility] Stop: 05/16/16 10:59 Last Admin: 05/15/16 15:31 Dose: 82 mls/hr Amino Ac/Electrol/Dextrose/Calcium (Clinimix E 07/25) 1,000 mls @ 82 mls/hr IV .BY DURATION [facility] Stop: 05/16/16 10:59 Last Admin: 05/16/16 03:41 Dose: 82 mls/hr Lactated Ringer's (Ringers, Lactated) 1,000 mls @ 100 mls/hr IV ASDIRECTED [facility] Last Admin: 05/20/16 03:16 Dose: 100 mls/hr Acetaminophen 1,000 mg/ Premix 100 mls @ 400 mls/hr IV Q6H [facility] Stop: 05/15/16 10:14 Last Admin: 05/15/16 10:12 Dose: 400 mls/hr Albumin Human (Flexbumin 25%) 50 mls @ 50 mls/hr IV Q24H SARAHY Stop: 05/23/16 23:00 Last Admin: 05/23/16 09:14 Dose: 50 mls/hr Albumin Human (Flexbumin 25%) 50 mls @ 50 mls/hr IV Q24H [facility] Stop: 05/23/16 23:00 Last Admin: 05/23/16 10:19 Dose: 50 mls/hr Albumin Human (Flexbumin 25%) 50 mls @ 50 mls/hr IV Q24H [facility] Stop: 05/23/16 23:00 Last Admin: 05/23/16 12:05 Dose: 50 mls/hr Albumin Human (Flexbumin 25%) 50 mls @ 50 mls/hr IV Q24H [facility] Stop: 05/23/16 23:00 Last Admin: 05/23/16 11:09 Dose: 50 mls/hr Potassium Phosphate 15 mmole/Lidocaine HCl 2 ml/ Sodium Chloride 157 mls @ 53 mls/hr IV Q3H [facility] Stop: 05/15/16 15:58 Last Admin: 05/15/16 13:04 Dose: 53 mls/hr Multivitamins/Minerals 10 ml/Chromium/Copper/Manganese/Seleni/Zn 1 ml/ Amino Ac/ Electrol/Dextrose/Calcium 1,011 mls @ 82 mls/hr IV .BY DURATION [facility] Stop: 05/23/16 14:30 Last Admin: 05/22/16 16:20 Dose: 82 mls/hr Amino Ac/Electrol/Dextrose/Calcium (Clinimix E 15) 1,000 mls @ 82 mls/hr IV .BY DURATION [facility] Stop: 05/23/16 14:30 Last Admin: 05/23/16 03:51 Dose: 82 mls/hr Potassium Phosphate 15 mmole/ (Sodium Chloride) 155 mls @ 55 mls/hr IV Q3H [facility] Stop: 05/16/16 16:50 Last Admin: 05/16/16 17:27 Dose: 55 mls/hr Levofloxacin/Dextrose 750 mg/ (Premix) 150 mls @ 100 mls/hr IV Q24H [facility] Last Admin: 05/21/16 11:17 Dose: 100 mls/hr Vancomycin HCl 1.3 gm/ Sodium (Chloride) 250 mls @ 167 mls/hr IV ONETIME ONE Stop: 05/17/16 14:29 Last Admin: 05/17/16 13:18 Dose: 167 mls/hr Vancomycin HCl 1 gm/ Sodium (Chloride) 250 mls @ 167 mls/hr IV Q12H [facility] Last Admin: 05/19/16 00:30 Dose: 167 mls/hr Sodium Chloride (Normal Saline) 70 mls @ 3 mls/sec IV ASDIRECTED [facility] Stop: 05/19/16 08:30 Lactated Ringer's (Ringers, Lactated) Confirm Administered Dose 1,000 mls @ as directed .ROUTE .STK-MED ONE Stop: 05/19/16 13:23 Sodium Chloride (Normal Saline) Confirm Administered Dose 10 mls @ as directed .ROUTE .STK-MED ONE Stop: 05/19/16 13:31 Vancomycin HCl 1 gm/ Sodium (Chloride) 250 mls @ 167 mls/hr IV Q8H [facility] Last Admin: 05/21/16 00:14 Dose: 167 mls/hr Fluconazole/Sodium Chloride (400 mg/ Premix) 200 mls @ 100 mls/hr IV Q24H [facility] Last Admin: 05/23/16 08:11 Dose: 100 mls/hr Vancomycin HCl 1.1 gm/ Sodium (Chloride) 250 mls @ 167 mls/hr IV Q8H [facility] Stop: 05/21/16 12:00 Last Admin: 05/21/16 09:50 Dose: 167 mls/hr Vancomycin HCl 1.1 gm/ Sodium (Chloride) 250 mls @ 167 mls/hr IV Q8H [facility] Last Admin: 05/22/16 09:28 Dose: 167 mls/hr Acetaminophen 1,000 mg/ Premix 100 mls @ 400 mls/hr IV Q6H PRN PRN Reason: Fever Stop: 05/22/16 21:01 Last Admin: 05/22/16 16:11 Dose: 400 mls/hr Gentamicin Sulfate 360 mg/ (Sodium Chloride) 159 mls @ 106 mls/hr IV Q24H [facility] Last Admin: 05/22/16 14:13 Dose: 106 mls/hr Acetaminophen 1,000 mg/ Premix 100 mls @ 400 mls/hr IV Q6H PRN PRN Reason: Pain/Fever Stop: 05/23/16 22:01 Last Admin: 05/23/16 21:13 Dose: 400 mls/hr Acetaminophen 1,000 mg/ Premix 100 mls @ 400 mls/hr IV Q6H PRN PRN Reason: Pain Stop: 05/25/16 06:39 Last Admin: 05/25/16 00:27 Dose: 400 mls/hr Ibuprofen (Motrin) 600 mg PO Q6H [facility] Last Admin: 05/13/16 05:24 Dose: Not Given Inulin (Fiber Choice) 4.5 gm PO BID [facility] Last Admin: 05/16/16 09:03 Dose: Not Given Iohexol (Omnipaque-300) 50 ml PO .ASDIRECTED [facility] Last Admin: 05/10/16 03:46 Dose: 50 ml Iohexol (Omnipaque-300) 10 ml PO . DIRECTED PRN PRN Reason: RADIOLOGY EXAM Stop: 05/20/16 08:30 Last Admin: 05/19/16 07:44 Dose: 10 ml Iopamidol (Isovue-300 (61%)) 100 ml IV . DIRECTED [facility] Last Admin: 05/13/16 19:22 Dose: 90 ml Iopamidol (Isovue-300 (61%)) 90 ml IV . DIRECTED PRN PRN Reason: RADIOLOGY EXAM Stop: 05/19/16 08:30 Last Admin: 05/19/16 07:44 Dose: 90 ml Ketamine HCl (Ketalar) 30 mg IV ASDIRECTED [facility] Stop: 05/09/16 11:00 Ketamine HCl (Ketalar) 30 mg IV .STK-MED ONE Stop: 05/09/16 09:46 Ketamine HCl (Ketalar) Confirm Administered Dose 500 mg .ROUTE .STK-MED ONE Stop: 05/14/16 08:51 Lactobacillus Rhamnosus (Culturelle) 2 cap PO BID [facility] Last Admin: 05/16/16 09:04 Dose: Not Given Lidocaine/Epinephrine (Xylocaine 1% With Epinephrine 1:100,000) Confirm Administered Dose 50 ml .ROUTE .STK-MED ONE Stop: 05/11/16 06:49 Last Admin: 05/11/16 09:09 Dose: 32 ml Lidocaine/Epinephrine (Xylocaine 1% With Epinephrine 1:100,000) Confirm Administered Dose 50 ml .ROUTE .STK-MED ONE Stop: 05/17/16 06:47 Last Admin: 05/17/16 08:07 Dose: 20 ml Lidocaine/Epinephrine (Xylocaine 1% With Epinephrine 1:100,000) Confirm Administered Dose 50 ml .ROUTE .STK-MED ONE Stop: 05/21/16 06:21 Last Admin: 05/21/16 08:48 Dose: 10 ml Meperidine HCl (Demerol) 50 mg IM ASDIRECTED PRN PRN Reason: PAIN Stop: 05/10/16 14:45 Meropenem (Merrem) Confirm Administered Dose 500 mg .ROUTE .STK-MED ONE Stop: 05/09/16 08:14 Last Admin: 05/09/16 10:24 Dose: 500 mg Meropenem (Merrem) Confirm Administered Dose 500 mg .ROUTE .STK-MED ONE Stop: 05/11/16 06:49 Last Admin: 05/11/16 09:10 Dose: 500 mg Meropenem (Merrem) Confirm Administered Dose 500 mg .ROUTE .STK-MED ONE Stop: 05/14/16 07:31 Last Admin: 05/14/16 10:19 Dose: 500 mg Meropenem (Merrem) Confirm Administered Dose 500 mg .ROUTE .STK-MED ONE Stop: 05/14/16 10:03 Last Admin: 05/14/16 10:19 Dose: 500 mg Meropenem (Merrem) Confirm Administered Dose 500 mg .ROUTE .STK-MED ONE Stop: 05/17/16 06:46 Last Admin: 05/17/16 08:12 Dose: 500 mg Meropenem (Merrem) Confirm Administered Dose 500 mg .ROUTE .STK-MED ONE Stop: 05/19/16 12:10 Last Admin: 05/19/16 13:30 Dose: 500 mg Meropenem (Merrem) Confirm Administered Dose 500 mg .ROUTE .STK-MED ONE Stop: 05/19/16 13:31 Last Admin: 05/19/16 14:25 Dose: 500 mg Meropenem (Merrem) Confirm Administered Dose 500 mg .ROUTE .[facility] ONE Stop: 05/21/16 06:20 Last Admin: 05/21/16 08:51 Dose: 500 mg Metoclopramide HCl (Reglan) 10 mg IV Q6H [facility] Last Admin: 05/14/16 08:03 Dose: 10 mg Midazolam HCl (Versed 1 Mg/Ml) Confirm Administered Dose 2 mg .ROUTE .ST-MED ONE Stop: 05/14/16 07:44 Midazolam HCl (Versed 1 Mg/Ml) Confirm Administered Dose 2 mg .ROUTE .STK-MED ONE Stop: 05/17/16 07:22 Midazolam HCl (Versed 1 Mg/Ml) Confirm Administered Dose 2 mg .ROUTE .STK-MED ONE Stop: 05/19/16 12:13 Midazolam HCl (Versed 1 Mg/Ml) Confirm Administered Dose 2 mg .ROUTE .[facility] ONE Stop: 05/21/16 08:19 Naloxone HCl (Narcan) 0.4 mg IV ASDIRECTED PRN PRN Reason: ITCHING Neostigmine Methylsulfate (Neostigmine) Confirm Administered Dose 5 mg .ROUTE .[facility]-MED ONE Stop: 05/09/16 08:37 Neostigmine Methylsulfate (Neostigmine) Confirm Administered Dose 5 mg .ROUTE .STK-MED ONE Stop: 05/14/16 07:44 Neostigmine Methylsulfate (Neostigmine) Confirm Administered Dose 5 mg .ROUTE .[facility]-MED ONE Stop: 05/19/16 12:14 Scopolamine Patch (Check) 1 each TOP DAILY [facility] Last Admin: 05/16/16 09:03 Dose: Not Given Check Fentanyl Patch (Daily) 1 each TOP DAILY [facility] Last Admin: 05/15/16 09:06 Dose: Not Given Non-Formulary Medication (Total Parenteral Nutrition, Central) 1,000 ml .XX .Continue Order [facility] Stop: 05/24/16 16:00 Ondansetron HCl (Zofran) Confirm Administered Dose 4 mg .ROUTE .K-MED ONE Stop: 05/09/16 08:37 Ondansetron HCl (Zofran) Confirm Administered Dose 4 mg .ROUTE .STK-MED ONE Stop: 05/14/16 07:44 Ondansetron HCl (Zofran) Confirm Administered Dose 4 mg .ROUTE .ST-MED ONE Stop: 05/19/16 12:14 Pantoprazole Sodium (Protonix Iv) 40 mg IVPUSH Q24H [facility] Last Admin: 05/11/16 16:53 Dose: 40 mg Pantoprazole Sodium (Protonix) 40 mg PO Q24H [facility] Last Admin: 05/13/16 16:59 Dose: 40 mg Phenylephrine HCl (Yan-Synephrine) Confirm Administered Dose 10 mg .ROUTE .ST- MED ONE Stop: 05/14/16 09:27 Propofol (Diprivan 20 Ml) Confirm Administered Dose 200 mg .ROUTE .ST-MED ONE Stop: 05/09/16 08:37 Propofol (Diprivan 20 Ml) Confirm Administered Dose 200 mg .ROUTE .ST-MED ONE Stop: 05/11/16 07:00 Propofol (Diprivan 20 Ml) Confirm Administered Dose 200 mg .ROUTE .ST-MED ONE Stop: 05/14/16 07:44 Propofol (Diprivan 20 Ml) Confirm Administered Dose 200 mg .ROUTE .ST-MED ONE Stop: 05/17/16 07:22 Propofol (Diprivan 20 Ml) Confirm Administered Dose 200 mg .ROUTE .ST-MED ONE Stop: 05/19/16 12:14 Propofol (Diprivan 20 Ml) Confirm Administered Dose 200 mg .ROUTE .ST-MED ONE Stop: 05/21/16 08:19 Rocuronium Simla (Zemuron) Confirm Administered Dose 100 mg .ROUTE .ST-MED ONE Stop: 05/09/16 08:37 Rocuronium Simla (Zemuron) Confirm Administered Dose 50 mg .ROUTE .ST-MED ONE Stop: 05/14/16 07:44 Rocuronium Simla (Zemuron) Confirm Administered Dose 50 mg .ROUTE .ST-MED ONE Stop: 05/19/16 12:14 Scopolamine (Transderm-Scop) 1.5 mg TOP Q72H [facility] Stop: 05/12/16 06:00 Last Admin: 05/09/16 07:53 Dose: 1.5 mg Scopolamine (Transderm-Scop) Confirm Administered Dose 1.5 mg .ROUTE .ST-MED ONE Stop: 05/09/16 08:37 Scopolamine (Transderm-Scop) 1.5 mg TOP ASDIRECTED [facility] Stop: 05/12/16 16:00 Scopolamine (Transderm-Scop) 1.5 mg TOP [facility] Last Admin: 05/12/16 09:17 Dose: 1.5 mg Sodium Chloride (Saline Flush) 10 ml FLUSH ONETIME ONE Stop: 05/13/16 18:10 Last Admin: 05/13/16 19:22 Dose: 10 ml Succinylcholine Chloride (Succinylcholine In Ns Pf) Confirm Administered Dose 200 mg .ROUTE .STK-MED ONE Stop: 05/09/16 08:37 Succinylcholine Chloride (Succinylcholine In Ns Pf) Confirm Administered Dose 200 mg .ROUTE .STK-MED ONE Stop: 05/14/16 07:44 Succinylcholine Chloride (Succinylcholine In Ns Pf) Confirm Administered Dose 200 mg .ROUTE .STK-MED ONE Stop: 05/19/16 12:14 Vancomycin HCl (Vancomycin) 1 gm IV .PHARMACY TO DOSE SARAHY - Exam Quality Assessment: No: supplemental oxygen General: alert, oriented, cooperative, no acute distress Neck: supple Lungs: Clear to auscultation, Normal respiratory effort, Decreased breath sounds (left lung base) Cardiovascular: Regular Rate, Regular Rhythm Abdomen: bowel sounds present, soft, no distension, tenderness Extremities: no edema, no cyanosis Skin: warm, dry Psy/Mental Status: alert, normal affect Consult PN Assessment/Plan Procedures: Procedures ASSAY OF LACTIC ACID (03/04/16) ASSAY OF MAGNESIUM (04/07/16) ASSAY OF PHOSPHORUS (04/07/16) ASSAY THYROID STIM HORMONE (10/08/15) BLOOD TYPING SEROLOGIC ABO (04/14/15) BLOOD TYPING SEROLOGIC RH(D) (04/14/15) C-REACTIVE PROTEIN (04/07/16) COMPLETE CBC AUTOMATED (04/07/16) COMPLETE CBC W/AUTO DIFF WBC (04/07/16) COMPREHEN METABOLIC PANEL (04/07/16) CT ABD & PELV W/CONTRAST (03/04/16) CULTURE SCREEN ONLY (11/10/15) ELECTROCARDIOGRAM TRACING (04/14/15) EMERGENCY DEPT VISIT (04/07/16) HYDRATE IV INFUSION ADD-ON (04/07/16) MEASURE BLOOD OXYGEN LEVEL (01/01/16) METABOLIC PANEL TOTAL CA (03/04/16) PT EVALUATION (11/10/15) RBC ANTIBODY SCREEN (04/14/15) ROUTINE VENIPUNCTURE (04/07/16) SPECIAL STAINS GROUP 2 (04/14/15) THER/PROPH/DIAG INJ IV PUSH (04/07/16) THER/PROPH/DIAG IV INF ADDON (03/04/16) THER/PROPH/DIAG IV INF INIT (03/04/16) THERAPEUTIC ACTIVITIES (11/10/15) TISSUE EXAM BY PATHOLOGIST (01/01/16) TISSUE EXAM BY PATHOLOGIST (01/01/16) TISSUE EXAM BY PATHOLOGIST (04/14/15) TISSUE EXAM BY PATHOLOGIST (04/14/15) TX/PRO/DX INJ NEW DRUG ADDON (04/07/16) URINALYSIS AUTO W/SCOPE (04/07/16) X-RAY EXAM OF ABDOMEN (04/07/16) X-RAY EXAM SERIES ABDOMEN (04/07/16) X-RAY UPPER GI DELAY W/O KUB (03/04/16) X-RAY UPPER GI&SMALL INTEST (04/07/16) (1) Elevated bilirubin SNOMED Code(s): 565107631 Code(s): R17 - UNSPECIFIED JAUNDICE Current Visit: Yes Problem List Initiated/Reviewed/Updated: Yes My Orders last 24 hours: My Active Orders 05/24/16 10:04 Transfer Patient (Change bed) [ADT] Routine 05/26/16 05:00 BASIC METABOLIC PANEL,BMP [CHEM] Timed CBC W/O DIFF,HEMOGRAM [HEME] Timed (1) Plan: Assessment and Plan - Abdominal abscess with peritonitis secondary to JJ leak - status post exploratory laparotomy 3/ and again last week because of splenic abscess. Cultures from wound and drains are growing Escherichia coli, Enterobacter, and relatively rare species of enterococcus it is often resistant to vancomycin. White blood cell count continues to improve and clinically she has shown significant improvement in the past 3 days. Abdominal pain remains fairly well- controlled but did not tolerate clear liquids very well. -continue Zyvox and gentamicin IV (this combination should cover all of the above organisms) -plan to de-escalated antibiotics when we transitioned to oral medications ( linezolid and cipro?) -Followup cultures, enterococcus is being sent to reference lab for sensitivities -additional postop cares per surgical team -Continue nutritional support with TPN -plan to transition to oral pain medications as soon as we are able to advance her diet Hypoxia - small pleural effusions but clinically improving. Patient is diuresing on her own without any medication supplementation. She is off oxygen as of this morning. -Monitor urine output -Wean oxygen as able Recurrent fever - likely secondary to abdominal source versus medication versus atelectasis. Fever current has been improving. -Antibiotic adjustments as above Eduard Bedolla M.D.
[2016-05-25] MEDS: Linezolid 600 MG in Premix Bag 1 BAG IV SCH ×2 (10:39→23:04)
[2016-05-25] MEDS: HYDROmorphone/Normal Saline 15 MG/30 ML PCA IV PRN (12:55)
[2016-05-25] MEDS: SODIUM CHLORIDE 0.9% IV SCH (13:29)
[2016-05-25] MEDS: GENTAMICIN IV SCH (13:29)
[2016-05-25] MEDS: Pantoprazole 40 MG Vial IV SCH (15:22)
[2016-05-26] MEDS: Acetaminophen 1,000 MG in Premix Bag 1 BAG IV PRN (05:14)
[2016-05-26] MEDS: 1: AA 5%/Calcium/D15W/Lytes 1,000 ML with MVI, Adult with Vitamin K 10 ML, Chromium/Copp IV SCH ×6 (05:47→17:52)
[2016-05-26] MEDS: Ondansetron 4 MG/2 ML SDV IVPUSH PRN ×2 (07:17→20:11)
[2016-05-26] MEDS ORDERED: Central Total Parenteral Nutrition Bag SCH (07:30)
--- NOTE | 2016-05-26 08:54 | PN ---
DATE OF SERVICE: 05/26/2016 SUBJECTIVE: Carolyn is sitting up in the chair this morning. Hemoglobin is 7.9, white count is down to 12.6, potassium is 4.4, sodium is a little low at 137, and creatinine is 0.5. She reports no bowel movement after a bowel stimulation yesterday. She is having smear of BM with wiping. Her oral intake was 20 yesterday. She states that she gets nauseated when she tries to eat or drink. LACIE drain C put out 10 mL and LACIE drain B put out 40 mL over the past 24 hours. These two drains are bilious. LACIE drain A put out 185, B 10, D 15, F zero; G, H, I, J put out 10, 40, 15, 20, and 25, and those were all a serosanguineous drainage. States her pain is much better controlled with IV Tylenol because she gets very nauseated with anything orally and she is able to ambulate better. OBJECTIVE: GENERAL: Carolyn Hanks is a 55-year-old female. She is sitting up in the chair. Color is less pale, appears to be feeling better. VITAL SIGNS: TPR is 97.6, 76, 16. Blood pressure 127/79. O2 by pulse oximetry is 100%. HEENT: Negative. NECK: Supple. HEART: Regular rate and rhythm. LUNGS: Clear. ABDOMEN: Occlusive dressings are both in place. There appears to be some shadowing on each one of them. Her LACIE drains are intact as above. Abdomen is soft, normally tender but is not distended. EXTREMITIES: Without peripheral edema. ASSESSMENT: 1. 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 2. Delayed primary closure for open incision on 05/11/2016. 3. Insertion of left subclavian triple lumen, drainage of intraabdominal abscess, irrigation of diffuse peritonitis, small-bowel resection, separate jejunostomy to re- establish [place]-en-Y small bowel anatomy for leak at the jejunostomy, focal abscess in the left upper quadrant, diffuse peritonitis involving the lower two-thirds of abdomen and pelvis, and limited pelvic anus abscess on 05/14/2016. 4. Delayed primary closure, 05/17/2016. 5. 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 6. Delayed primary closure, 05/21/2016. PLAN: 1. IV Tylenol ordered for x24 hours. 2. Give Zofran before meals. Continue step-1 gastric bypass diet, 2 units of packed red blood cells because the patient is unable to tolerate any type of oral vitamins for several years. 3. Check hemoglobin 2 hours after second unit of packed red blood cells is infused and to call with results. 4. Continue TPN at same rate and content. 5. Occlusive dressings, both to be removed. May shower. 6. Dulcolax suppositories per rectum b.i.d. until BM. 7. Encouraged oral intake. 8. Check CBC, CMP, Mag, phos in a.m. 9. We will evaluate p.r.n. or in a.m. Gail Pedro PA-C /[id number]
[2016-05-26] MEDS: Bisacodyl 10 MG Supp RECTAL SCH ×2 (09:59→20:17)
[2016-05-26] MEDS: Lubiprostone 24 MCG Cap PO SCH ×2 (10:00→16:59)
[2016-05-26] MEDS: Linezolid 600 MG in Premix Bag 1 BAG IV SCH ×2 (10:08→23:34)
[2016-05-26] MEDS: HYDROmorphone/Normal Saline 15 MG/30 ML PCA IV PRN (10:24)
--- NOTE | 2016-05-26 12:25 | PCM.CONSN ---
- General Info Date of Service: 05/26/16 Functional Status: Reports: pain controlled, ambulating - Review of Systems Gastrointestinal: Reports: Abdominal pain Systems Review Comment:: no acute events overnight. Ongoing abdominal pain but there has been some improvement. Her bowels have been moving. Still not tolerating much in the way of liquids or a diet. She has not had any fevers. White count continues to trend down. No complaints of shortness of breath. - Patient Data Vitals - most recent: Last Vital Signs Temp 37.4 C 05/26/16 12:05 Pulse 87 05/26/16 12:05 Resp 16 05/26/16 12:05 BP 114/66 05/26/16 12:05 Pulse Ox 100 05/26/16 08:10 Weight - most recent: 60.781 kg I&O - last 24 hours: Intake & Output 05/25/16 05/26/16 05/26/16 22:59 06:59 14:59 Intake Total 1628 2443 0 Output Total 2145 1025 1000 Balance -517 1418 -1000 Lab Results last 24 hrs: Laboratory Results - last 24 hr 05/26/16 05/26/16 05/26/16 Range/Units 05:00 05:00 05:00 WBC 12.6 H (4.5-11.0) K/uL RBC 2.89 L (3.30-5.50) M/uL Hgb 7.9 L (12.0-15.0) g/dL Hct 24.6 L (36.0-48.0) % MCV 85 (80-98) fL MCH 27 (27-31) pg MCHC 32 (32-36) % Plt Count 944 H (150-400) K/uL Sodium 137 L (140-148) mmol/L Potassium 4.4 (3.6-5.2) mmol/L Chloride 103 (100-108) mmol/L Carbon Dioxide 26 (21-32) mmol/L Anion Gap 12.4 (5.0-14.0) mmol/L BUN 19 H (7-18) mg/dL Creatinine 0.5 L (0.6-1.0) mg/dL Est Cr Clr Drug Dosing 119.11 mL/min Estimated GFR (MDRD) > 60 (>60) Glucose 106 (74-106) mg/dL Calcium 8.6 (8.5-10.1) mg/dL Blood Type A POSITIVE Gel Antibody Screen Negative Crossmatch See Detail Dereje Results last 24 hrs: Microbiology 05/19/16 14:17 Specimen Source - Preliminary Specimen Type Unknown Bacterial Sensitivity - Preliminary Enterococcus Med Orders - Current: Current Medications Acetaminophen (Tylenol) 650 mg RECTAL Q4H PRN PRN Reason: Fever Last Admin: 05/18/16 05:53 Dose: 650 mg Acetaminophen (Tylenol) 650 mg PO Q4H PRN PRN Reason: Pain/Fever Bacitracin (Bacitracin Oint 1 Gm) 1 dose TOP BID PRN PRN Reason: burn Last Admin: 05/12/16 20:31 Dose: 2 dose Bisacodyl (Dulcolax) 10 mg RECTAL BID [facility] Last Admin: 05/26/16 09:59 Dose: Not Given Dimethicone/Zinc Oxide (Rash Relief-Zinc Oxide [place]) 1 gm TOP ASDIRECTED PRN PRN Reason: Other Last Admin: 05/12/16 20:30 Dose: 1 bot Diphenhydramine HCl (Benadryl) 25 - 50 mg IVPUSH Q4H PRN PRN Reason: ITCHING Heparin Sodium (Porcine) (Heparin Lock Flush 100 Units/Ml Syringe) 500 units IVPUSH ASDIRECTED PRN PRN Reason: [place] Last Admin: 05/26/16 05:04 Dose: 500 units Lactated Ringer's (Ringers, Lactated) 1,000 mls @ 0 mls/hr IV ASDIRECTED [facility] PRN Reason: KVO Last Admin: 05/23/16 22:36 Dose: 20 mls/hr Linezolid 600 mg/ Premix 300 mls @ 300 mls/hr IV Q12H [facility] Last Admin: 05/26/16 10:08 Dose: 300 mls/hr Multivitamins/Minerals 10 ml/Chromium/Copper/Manganese/Seleni/Zn 1 ml/ Amino Ac/ Electrol/Dextrose/Calcium 1,011 mls @ 82 mls/hr IV .BY DURATION [facility] Last Admin: 05/25/16 17:29 Dose: 82 mls/hr Amino Ac/Electrol/Dextrose/Calcium (Clinimix E 5/15) 1,000 mls @ 82 mls/hr IV .BY DURATION [facility] Last Admin: 05/26/16 05:47 Dose: 82 mls/hr Lubiprostone (Amitiza) 24 mcg PO BIDMEALS [facility] Last Admin: 05/26/16 10:00 Dose: 24 mcg Naloxone HCl (Narcan) 0.1 mg IV ASDIRECTED PRN PRN Reason: decreased respiratory rate Non-Formulary Medication (Total Parenteral Nutrition, Central) 1,000 ml .XX .Continue Order [facility] Stop: 05/26/16 16:00 Ondansetron HCl (Zofran) 4 mg IVPUSH Q4H PRN PRN Reason: Nausea/Vomiting Last Admin: 05/26/16 07:17 Dose: 4 mg Pantoprazole Sodium (Protonix Iv) 40 mg IV Q24H [facility] Last Admin: 05/25/16 15:22 Dose: 40 mg Senna/Docusate Sodium (Senna Plus) 1 tab PO BID [facility] Last Admin: 05/26/16 10:00 Dose: Not Given Discontinued Medications Acetaminophen (Tylenol) 650 mg PO Q6H [facility] Last Admin: 05/16/16 09:03 Dose: Not Given Albuterol/Ipratropium (Duoneb 3.0-0.5 Mg/3 Ml) 3 ml NEB ONETIME STA Stop: 05/13/16 19:09 Last Admin: 05/13/16 19:21 Dose: 3 ml Alvimopan (Entereg) 12 mg PO ONETIME ONE Stop: 05/09/16 08:31 Last Admin: 05/09/16 08:30 Dose: 12 mg Alvimopan (Entereg) 12 mg PO Q12H [facility] Stop: 05/16/16 09:01 Last Admin: 05/10/16 09:04 Dose: 12 mg Bisacodyl (Dulcolax) 10 mg PO BID [facility] Last Admin: 05/11/16 09:52 Dose: Not Given Bupivacaine HCl (Marcaine 0.5%) Confirm Administered Dose 50 ml .ROUTE .STK-MED ONE Stop: 05/11/16 06:49 Last Admin: 05/11/16 09:09 Dose: 32 ml Bupivacaine HCl (Marcaine 0.5%) Confirm Administered Dose 50 ml .ROUTE .STK-MED ONE Stop: 05/17/16 06:47 Last Admin: 05/17/16 08:07 Dose: 20 ml Bupivacaine HCl (Marcaine 0.5%) Confirm Administered Dose 50 ml .ROUTE .STK-MED ONE Stop: 05/19/16 14:06 Bupivacaine HCl (Marcaine 0.5%) Confirm Administered Dose 50 ml .ROUTE .STK-MED ONE Stop: 05/21/16 06:21 Last Admin: 05/21/16 08:48 Dose: 10 ml Bupivacaine HCl/Epinephrine Bitart (Marcaine 0.5%/Epinephrine 1:200,000) Confirm Administered Dose 50 ml .ROUTE .STK-MED ONE Stop: 05/19/16 14:06 Last Admin: 05/19/16 14:10 Dose: 25 ml Cefoxitin Sodium (Mefoxin) Confirm Administered Dose 2 gm .ROUTE .ST-MED ONE Stop: 05/09/16 06:55 Neomycin/Polymyxin 1 ml/ (Sodium Chloride 750 ml) 0 ml .XX ONETIME ONE Stop: 05/09/16 09:16 Last Admin: 05/09/16 13:25 Dose: Not Given Cyanocobalamin (Vitamin B12) 1,000 mcg IM ONETIME ONE Stop: 05/11/16 09:01 Last Admin: 05/11/16 09:53 Dose: 1,000 mcg Cyclobenzaprine HCl (Flexeril) 10 mg PO Q6H PRN PRN Reason: Muscle Spasm Last Admin: 05/13/16 06:22 Dose: 10 mg Dexamethasone (Dexamethasone) Confirm Administered Dose 4 mg .ROUTE .STK-MED ONE Stop: 05/09/16 08:37 Dexamethasone (Dexamethasone) Confirm Administered Dose 4 mg .ROUTE .STK-MED ONE Stop: 05/14/16 07:44 Dexamethasone (Dexamethasone) Confirm Administered Dose 4 mg .ROUTE .ST-MED ONE Stop: 05/19/16 12:14 Diatrizoate Meglum/Diatrizoate Sod (Gastrografin 37%) 30 ml PO . DIRECTED [facility] Stop: 05/13/16 19:46 Last Admin: 05/13/16 19:33 Dose: 30 mg Diphenhydramine HCl (Benadryl) 25 mg IVPUSH Q6H PRN PRN Reason: ITCHING Diphenoxylate HCl/Atropine (Lomotil 0.025-2.5 Mg) 1 tab PO ONETIME ONE Stop: 05/12/16 10:36 Last Admin: 05/12/16 10:55 Dose: 1 tab Diphenoxylate HCl/Atropine (Lomotil 0.025-2.5 Mg) 1 tab PO Q6H PRN PRN Reason: Diarrhea Edrophonium Chloride (Enlon) Confirm Administered Dose 150 mg .ROUTE .STK-MED ONE Stop: 05/14/16 10:59 Edrophonium Chloride (Enlon) Confirm Administered Dose 150 mg .ROUTE .STK-MED ONE Stop: 05/19/16 14:23 Fentanyl (Sublimaze) Confirm Administered Dose 500 mcg .ROUTE .STK-MED ONE Stop: 05/09/16 08:37 Fentanyl (Sublimaze) Confirm Administered Dose 100 mcg .ROUTE .STK-MED ONE Stop: 05/09/16 08:39 Fentanyl (Duragesic) 12 mcg TRDERM Q72H [facility] Last Admin: 05/13/16 13:15 Dose: Not Given Fentanyl (Sublimaze) Confirm Administered Dose 250 mcg .ROUTE .STK-MED ONE Stop: 05/14/16 07:44 Fentanyl (Duragesic) 25 mcg TRDERM Q72H [facility] Last Admin: 05/14/16 16:58 Dose: Not Given Fentanyl (Sublimaze) Confirm Administered Dose 100 mcg .ROUTE .STK-MED ONE Stop: 05/17/16 07:22 Fentanyl (Sublimaze) Confirm Administered Dose 250 mcg .ROUTE .STK-MED ONE Stop: 05/19/16 12:13 Fentanyl (Sublimaze) Confirm Administered Dose 100 mcg .ROUTE .STK-MED ONE Stop: 05/21/16 08:19 Furosemide (Lasix) 20 mg IVPUSH ONETIME ONE Stop: 05/13/16 18:01 Last Admin: 05/13/16 18:21 Dose: 20 mg Gabapentin (Neurontin) 300 mg PO ONETIME ONE Stop: 05/09/16 08:16 Last Admin: 05/09/16 07:53 Dose: 300 mg Gabapentin (Neurontin) 300 mg PO TID [facility] Last Admin: 05/12/16 21:54 Dose: 300 mg Glycopyrrolate () Confirm Administered Dose 1 mg .ROUTE .STK-MED ONE Stop: 05/09/16 08:37 Glycopyrrolate () Confirm Administered Dose 1 mg .ROUTE .STK-MED ONE Stop: 05/14/16 07:44 Glycopyrrolate () Confirm Administered Dose 1 mg .ROUTE .STK-MED ONE Stop: 05/19/16 12:14 Heparin Sodium (Porcine) (Heparin Sodium) 5,000 units SUBCUT Q12H [facility] Stop: 05/10/16 20:00 Last Admin: 05/10/16 06:23 Dose: 5,000 units Heparin Sodium (Porcine) (Heparin Sodium) 5,000 units SUBCUT Q12H [facility] Heparin Sodium (Porcine) (Heparin Sodium) 5,000 units SUBCUT ONETIME ONE Stop: 05/10/16 17:01 Last Admin: 05/10/16 16:45 Dose: 5,000 units Heparin Sodium (Porcine) (Heparin Lock Flush 100 Units/Ml Syringe) 500 units FLUSH .STK-MED ONE Stop: 05/14/16 10:20 Last Admin: 05/14/16 10:19 Dose: 500 units Heparin Sodium (Porcine) (Heparin Lock Flush 100 Units/Ml Syringe) Confirm Administered Dose 500 units .ROUTE .STK-MED ONE Stop: 05/15/16 17:28 Last Admin: 05/15/16 19:22 Dose: Not Given Heparin Sodium (Porcine) (Heparin Lock Flush 100 Units/Ml Syringe) Confirm Administered Dose 500 units .ROUTE .K-MED ONE Stop: 05/19/16 21:35 Last Admin: 05/19/16 21:50 Dose: 500 units Hydromorphone HCl (Dilaudid) 2 - 4 mg PO Q4H PRN PRN Reason: PAIN Last Admin: 05/14/16 02:12 Dose: 4 mg Hydromorphone HCl (Dilaudid Bus Matron 15 Mg In Ns 30 Ml) 0 mg IV ASDIRECTED PRN; Protocol PRN Reason: [employer] PAIN CONTROL Last Admin: 05/26/16 10:24 Dose: 15 mg Hydroxyzine HCl (Vistaril) 75 - 100 mg IM Q4H PRN PRN Reason: PAIN NOT CONTROLLED BY [employer] Last Admin: 05/13/16 02:48 Dose: 100 mg Hydroxyzine HCl (Vistaril) 100 mg IM Q4H PRN PRN Reason: PAIN NOT CONTROLLED BY [employer] Last Admin: 05/21/16 10:40 Dose: 100 mg Dextrose/Lactated Ringer's (Dextrose 5%-Lactated Ringers) 1,000 mls @ 100 mls/ hr IV ASDIRECTED [facility] Last Admin: 05/09/16 07:55 Dose: 100 mls/hr Cefoxitin Sodium 2 gm/ Sodium (Chloride) 50 mls @ 100 mls/hr IV ONETIME ONE Stop: 05/09/16 09:44 Last Admin: 05/09/16 09:08 Dose: 100 mls/hr Fentanyl 2,500 mcg/ Sodium (Chloride) 250 mls @ 0 mls/hr EPIDUR TITRATE [facility]; Titrate PRN Reason: Protocol Last Admin: 05/10/16 09:12 Dose: 10 ml/hr, 10 mls/hr Ketamine HCl 100 mg/ Sodium (Chloride) 100 mls @ 18 mls/hr IV ASDIRECTED [facility] Stop: 05/09/16 13:00 Lactated Ringer's (Ringers, Lactated) Confirm Administered Dose 1,000 mls @ as directed .ROUTE .STK-MED ONE Stop: 05/09/16 08:37 Sodium Chloride (Normal Saline) Confirm Administered Dose 10 mls @ as directed .ROUTE .STK-MED ONE Stop: 05/09/16 08:39 Lidocaine HCl (Xylocaine-Mpf 1%) Confirm Administered Dose 2 mls @ as directed .ROUTE .STK-MED ONE Stop: 05/09/16 09:24 Lactated Ringer's (Ringers, Lactated) Confirm Administered Dose 1,000 mls @ as directed .ROUTE .STK-MED ONE Stop: 05/09/16 11:10 Lactated Ringer's (Ringers, Lactated) 500 mls @ 500 mls/hr IV .BOLUS ONE Stop: 05/09/16 14:59 Last Admin: 05/09/16 14:03 Dose: 500 mls/hr Dextrose/Lactated Ringer's (Dextrose 5%-Lactated Ringers) 1,000 mls @ 200 mls/ hr IV ASDIRECTED [facility] Stop: 05/10/16 17:59 Last Admin: 05/10/16 15:05 Dose: 200 mls/hr Multivitamins/Minerals 10 ml/Thiamine HCl 200 mg/ Chromium/Copper/Manganese/ Seleni/Zn 1 ml/ Dextrose/Lactated Ringer's 1,013 mls @ 100 mls/hr IV DAILY@ 1600 [facility] Last Admin: 05/14/16 16:33 Dose: Not Given Cefoxitin Sodium 2 gm/ Sodium (Chloride) 50 mls @ 100 mls/hr IV Q6H [facility] Last Admin: 05/12/16 03:39 Dose: 100 mls/hr Acetaminophen 1,000 mg/ Premix 100 mls @ 400 mls/hr IV Q6H [facility] Stop: 05/10/16 04:14 Last Admin: 05/10/16 04:19 Dose: 400 mls/hr Ketamine HCl 100 mg/ Sodium (Chloride) 101 mls @ as directed IV .STK-MED ONE Stop: 05/09/16 09:46 Dextrose/Lactated Ringer's (Dextrose 5%-Lactated Ringers) 1,000 mls @ 100 mls/ hr IV ASDIRECTED [facility] Last Admin: 05/13/16 02:59 Dose: 100 mls/hr Magnesium Sulfate 2 gm/ Sodium (Chloride) 54 mls @ 27 mls/hr IV ONETIME ONE Stop: 05/13/16 11:59 Last Admin: 05/13/16 10:01 Dose: 27 mls/hr Magnesium Sulfate 2 gm/ Premix 50 mls @ 25 mls/hr IV Q6H [facility] Stop: 05/15/16 05:59 Last Admin: 05/16/16 09:03 Dose: Not Given Potassium Phosphate 20 mmole/ (Sodium Chloride) 256.6667 mls @ 85 mls/hr IV Q3H [facility] Stop: 05/13/16 18:59 Last Admin: 05/13/16 19:49 Dose: 85 mls/hr Dextrose/Lactated Ringer's (Dextrose 5%-Lactated Ringers) 1,000 mls @ 80 mls/ hr IV ASDIRECTED [facility] Stop: 05/14/16 14:29 Last Admin: 05/13/16 18:20 Dose: 25 mls/hr Meropenem 500 mg/ Sodium (Chloride) 50 mls @ 100 mls/hr IV ONETIME ONE Stop: 05/13/16 18:29 Last Admin: 05/13/16 18:28 Dose: 100 mls/hr Sodium Chloride (Normal Saline) 70 mls @ 3 mls/sec IV ASDIRECTED [facility] Last Admin: 05/13/16 19:22 Dose: 3 mls/sec Meropenem 500 mg/ Sodium (Chloride) 50 mls @ 100 mls/hr IV Q6H [facility] Last Admin: 05/23/16 10:20 Dose: 100 mls/hr Aztreonam 1 gm/ Sodium (Chloride) 50 mls @ 100 mls/hr IV Q8HR [facility] Last Admin: 05/14/16 05:39 Dose: 100 mls/hr Aztreonam/Dextrose 1 gm/ (Premix) 50 mls @ 100 mls/hr IV Q8H [facility] Last Admin: 05/21/16 14:02 Dose: 100 mls/hr Sodium Chloride (Normal Saline) Confirm Administered Dose 10 mls @ as directed .ROUTE .[facility] ONE Stop: 05/14/16 08:52 Sodium Chloride (Normal Saline) Confirm Administered Dose 10 mls @ as directed .ROUTE .[facility] ONE Stop: 05/14/16 09:28 Lactated Ringer's (Ringers, Lactated) Confirm Administered Dose 1,000 mls @ as directed .ROUTE .[facility] ONE Stop: 05/14/16 09:34 Multivitamins/Minerals 10 ml/Chromium/Copper/Manganese/Seleni/Zn 1 ml/ Amino Ac/ Electrol/Dextrose/Calcium 1,011 mls @ 82 mls/hr IV .BY DURATION [facility] Stop: 05/16/16 10:59 Last Admin: 05/15/16 15:31 Dose: 82 mls/hr Amino Ac/Electrol/Dextrose/Calcium (Clinimix E 5/15) 1,000 mls @ 82 mls/hr IV .BY DURATION [facility] Stop: 05/16/16 10:59 Last Admin: 05/16/16 03:41 Dose: 82 mls/hr Lactated Ringer's (Ringers, Lactated) 1,000 mls @ 100 mls/hr IV ASDIRECTED [facility] Last Admin: 05/20/16 03:16 Dose: 100 mls/hr Acetaminophen 1,000 mg/ Premix 100 mls @ 400 mls/hr IV Q6H [facility] Stop: 05/15/16 10:14 Last Admin: 05/15/16 10:12 Dose: 400 mls/hr Albumin Human (Flexbumin 25%) 50 mls @ 50 mls/hr IV Q24H [facility] Stop: 05/23/16 23:00 Last Admin: 05/23/16 09:14 Dose: 50 mls/hr Albumin Human (Flexbumin 25%) 50 mls @ 50 mls/hr IV Q24H [facility] Stop: 05/23/16 23:00 Last Admin: 05/23/16 10:19 Dose: 50 mls/hr Albumin Human (Flexbumin 25%) 50 mls @ 50 mls/hr IV Q24H [facility] Stop: 05/23/16 23:00 Last Admin: 05/23/16 12:05 Dose: 50 mls/hr Albumin Human (Flexbumin 25%) 50 mls @ 50 mls/hr IV Q24H [facility] Stop: 05/23/16 23:00 Last Admin: 05/23/16 11:09 Dose: 50 mls/hr Potassium Phosphate 15 mmole/Lidocaine HCl 2 ml/ Sodium Chloride 157 mls @ 53 mls/hr IV Q3H [facility] Stop: 05/15/16 15:58 Last Admin: 05/15/16 13:04 Dose: 53 mls/hr Multivitamins/Minerals 10 ml/Chromium/Copper/Manganese/Seleni/Zn 1 ml/ Amino Ac/ Electrol/Dextrose/Calcium 1,011 mls @ 82 mls/hr IV .BY DURATION [facility] Stop: 05/23/16 14:30 Last Admin: 05/22/16 16:20 Dose: 82 mls/hr Amino Ac/Electrol/Dextrose/Calcium (Clinimix E 5/15) 1,000 mls @ 82 mls/hr IV .BY DURATION [facility] Stop: 05/23/16 14:30 Last Admin: 05/23/16 03:51 Dose: 82 mls/hr Potassium Phosphate 15 mmole/ (Sodium Chloride) 155 mls @ 55 mls/hr IV Q3H [facility] Stop: 05/16/16 16:50 Last Admin: 05/16/16 17:27 Dose: 55 mls/hr Levofloxacin/Dextrose 750 mg/ (Premix) 150 mls @ 100 mls/hr IV Q24H [facility] Last Admin: 05/21/16 11:17 Dose: 100 mls/hr Vancomycin HCl 1.3 gm/ Sodium (Chloride) 250 mls @ 167 mls/hr IV ONETIME ONE Stop: 05/17/16 14:29 Last Admin: 05/17/16 13:18 Dose: 167 mls/hr Vancomycin HCl 1 gm/ Sodium (Chloride) 250 mls @ 167 mls/hr IV Q12H [facility] Last Admin: 05/19/16 00:30 Dose: 167 mls/hr Sodium Chloride (Normal Saline) 70 mls @ 3 mls/sec IV ASDIRECTED [facility] Stop: 05/19/16 08:30 Lactated Ringer's (Ringers, Lactated) Confirm Administered Dose 1,000 mls @ as directed .ROUTE .STK-MED ONE Stop: 05/19/16 13:23 Sodium Chloride (Normal Saline) Confirm Administered Dose 10 mls @ as directed .ROUTE .[facility] ONE Stop: 05/19/16 13:31 Vancomycin HCl 1 gm/ Sodium (Chloride) 250 mls @ 167 mls/hr IV Q8H [facility] Last Admin: 05/21/16 00:14 Dose: 167 mls/hr Fluconazole/Sodium Chloride (400 mg/ Premix) 200 mls @ 100 mls/hr IV Q24H [facility] Last Admin: 05/23/16 08:11 Dose: 100 mls/hr Vancomycin HCl 1.1 gm/ Sodium (Chloride) 250 mls @ 167 mls/hr IV Q8H [facility] Stop: 05/21/16 12:00 Last Admin: 05/21/16 09:50 Dose: 167 mls/hr Vancomycin HCl 1.1 gm/ Sodium (Chloride) 250 mls @ 167 mls/hr IV Q8H [facility] Last Admin: 05/22/16 09:28 Dose: 167 mls/hr Acetaminophen 1,000 mg/ Premix 100 mls @ 400 mls/hr IV Q6H PRN PRN Reason: Fever Stop: 05/22/16 21:01 Last Admin: 05/22/16 16:11 Dose: 400 mls/hr Gentamicin Sulfate 360 mg/ (Sodium Chloride) 159 mls @ 106 mls/hr IV Q24H [facility] Last Admin: 05/22/16 14:13 Dose: 106 mls/hr Acetaminophen 1,000 mg/ Premix 100 mls @ 400 mls/hr IV Q6H PRN PRN Reason: Pain/Fever Stop: 05/23/16 22:01 Last Admin: 05/23/16 21:13 Dose: 400 mls/hr Gentamicin Sulfate 420 mg/ (Sodium Chloride) 160.5 mls @ 107 mls/hr IV Q24H [facility] Last Admin: 05/25/16 13:29 Dose: 107 mls/hr Acetaminophen 1,000 mg/ Premix 100 mls @ 400 mls/hr IV Q6H PRN PRN Reason: Pain Stop: 05/25/16 06:39 Last Admin: 05/25/16 00:27 Dose: 400 mls/hr Acetaminophen 1,000 mg/ Premix 100 mls @ 400 mls/hr IV Q6H PRN PRN Reason: Pain Stop: 05/26/16 07:39 Last Admin: 05/26/16 05:14 Dose: 400 mls/hr Ibuprofen (Motrin) 600 mg PO Q6H [facility] Last Admin: 05/13/16 05:24 Dose: Not Given Inulin (Fiber Choice) 4.5 gm PO BID [facility] Last Admin: 05/16/16 09:03 Dose: Not Given Iohexol (Omnipaque-300) 50 ml PO .ASDIRECTED [facility] Last Admin: 05/10/16 03:46 Dose: 50 ml Iohexol (Omnipaque-300) 10 ml PO . DIRECTED PRN PRN Reason: RADIOLOGY EXAM Stop: 05/20/16 08:30 Last Admin: 05/19/16 07:44 Dose: 10 ml Iopamidol (Isovue-300 (61%)) 100 ml IV . DIRECTED [facility] Last Admin: 05/13/16 19:22 Dose: 90 ml Iopamidol (Isovue-300 (61%)) 90 ml IV . DIRECTED PRN PRN Reason: RADIOLOGY EXAM Stop: 05/19/16 08:30 Last Admin: 05/19/16 07:44 Dose: 90 ml Ketamine HCl (Ketalar) 30 mg IV ASDIRECTED [facility] Stop: 05/09/16 11:00 Ketamine HCl (Ketalar) 30 mg IV .STK-MED ONE Stop: 05/09/16 09:46 Ketamine HCl (Ketalar) Confirm Administered Dose 500 mg .ROUTE .STK-MED ONE Stop: 05/14/16 08:51 Lactobacillus Rhamnosus (Culturelle) 2 cap PO BID [facility] Last Admin: 05/16/16 09:04 Dose: Not Given Lidocaine/Epinephrine (Xylocaine 1% With Epinephrine 1:100,000) Confirm Administered Dose 50 ml .ROUTE .STK-MED ONE Stop: 05/11/16 06:49 Last Admin: 05/11/16 09:09 Dose: 32 ml Lidocaine/Epinephrine (Xylocaine 1% With Epinephrine 1:100,000) Confirm Administered Dose 50 ml .ROUTE .STK-MED ONE Stop: 05/17/16 06:47 Last Admin: 05/17/16 08:07 Dose: 20 ml Lidocaine/Epinephrine (Xylocaine 1% With Epinephrine 1:100,000) Confirm Administered Dose 50 ml .ROUTE .STK-MED ONE Stop: 05/21/16 06:21 Last Admin: 05/21/16 08:48 Dose: 10 ml Meperidine HCl (Demerol) 50 mg IM ASDIRECTED PRN PRN Reason: PAIN Stop: 05/10/16 14:45 Meropenem (Merrem) Confirm Administered Dose 500 mg .ROUTE .[facility] ONE Stop: 05/09/16 08:14 Last Admin: 05/09/16 10:24 Dose: 500 mg Meropenem (Merrem) Confirm Administered Dose 500 mg .ROUTE .[facility] ONE Stop: 05/11/16 06:49 Last Admin: 05/11/16 09:10 Dose: 500 mg Meropenem (Merrem) Confirm Administered Dose 500 mg .ROUTE .[facility] ONE Stop: 05/14/16 07:31 Last Admin: 05/14/16 10:19 Dose: 500 mg Meropenem (Merrem) Confirm Administered Dose 500 mg .ROUTE .[facility] ONE Stop: 05/14/16 10:03 Last Admin: 05/14/16 10:19 Dose: 500 mg Meropenem (Merrem) Confirm Administered Dose 500 mg .ROUTE .ST-MED ONE Stop: 05/17/16 06:46 Last Admin: 05/17/16 08:12 Dose: 500 mg Meropenem (Merrem) Confirm Administered Dose 500 mg .ROUTE .ST-MED ONE Stop: 05/19/16 12:10 Last Admin: 05/19/16 13:30 Dose: 500 mg Meropenem (Merrem) Confirm Administered Dose 500 mg .ROUTE .ST-MED ONE Stop: 05/19/16 13:31 Last Admin: 05/19/16 14:25 Dose: 500 mg Meropenem (Merrem) Confirm Administered Dose 500 mg .ROUTE .ST-MED ONE Stop: 05/21/16 06:20 Last Admin: 05/21/16 08:51 Dose: 500 mg Metoclopramide HCl (Reglan) 10 mg IV Q6H [facility]AHY Last Admin: 05/14/16 08:03 Dose: 10 mg Midazolam HCl (Versed 1 Mg/Ml) Confirm Administered Dose 2 mg .ROUTE .STK-MED ONE Stop: 05/14/16 07:44 Midazolam HCl (Versed 1 Mg/Ml) Confirm Administered Dose 2 mg .ROUTE .STK-MED ONE Stop: 05/17/16 07:22 Midazolam HCl (Versed 1 Mg/Ml) Confirm Administered Dose 2 mg .ROUTE .STK-MED ONE Stop: 05/19/16 12:13 Midazolam HCl (Versed 1 Mg/Ml) Confirm Administered Dose 2 mg .ROUTE .STK-MED ONE Stop: 05/21/16 08:19 Naloxone HCl (Narcan) 0.4 mg IV ASDIRECTED PRN PRN Reason: ITCHING Neostigmine Methylsulfate (Neostigmine) Confirm Administered Dose 5 mg .ROUTE .[facility]-MED ONE Stop: 05/09/16 08:37 Neostigmine Methylsulfate (Neostigmine) Confirm Administered Dose 5 mg .ROUTE .STK-MED ONE Stop: 05/14/16 07:44 Neostigmine Methylsulfate (Neostigmine) Confirm Administered Dose 5 mg .ROUTE .STK-MED ONE Stop: 05/19/16 12:14 Scopolamine Patch (Check) 1 each TOP DAILY [facility] Last Admin: 05/16/16 09:03 Dose: Not Given Check Fentanyl Patch (Daily) 1 each TOP DAILY [facility] Last Admin: 05/15/16 09:06 Dose: Not Given Non-Formulary Medication (Total Parenteral Nutrition, Central) 1,000 ml .XX .Continue Order [facility] Stop: 05/24/16 16:00 Non-Formulary Medication (Total Parenteral Nutrition, Central) 1,000 ml .XX .Continue Order [facility] Stop: 05/25/16 16:00 Ondansetron HCl (Zofran) Confirm Administered Dose 4 mg .ROUTE .STK-MED ONE Stop: 05/09/16 08:37 Ondansetron HCl (Zofran) Confirm Administered Dose 4 mg .ROUTE .STK-MED ONE Stop: 05/14/16 07:44 Ondansetron HCl (Zofran) Confirm Administered Dose 4 mg .ROUTE .STK-MED ONE Stop: 05/19/16 12:14 Pantoprazole Sodium (Protonix Iv) 40 mg IVPUSH Q24H [facility] Last Admin: 05/11/16 16:53 Dose: 40 mg Pantoprazole Sodium (Protonix) 40 mg PO Q24H [facility] Last Admin: 05/13/16 16:59 Dose: 40 mg Phenylephrine HCl (Yan-Synephrine) Confirm Administered Dose 10 mg .ROUTE .STK- MED ONE Stop: 05/14/16 09:27 Propofol (Diprivan 20 Ml) Confirm Administered Dose 200 mg .ROUTE .STK-MED ONE Stop: 05/09/16 08:37 Propofol (Diprivan 20 Ml) Confirm Administered Dose 200 mg .ROUTE .STK-MED ONE Stop: 05/11/16 07:00 Propofol (Diprivan 20 Ml) Confirm Administered Dose 200 mg .ROUTE .STK-MED ONE Stop: 05/14/16 07:44 Propofol (Diprivan 20 Ml) Confirm Administered Dose 200 mg .ROUTE .STK-MED ONE Stop: 05/17/16 07:22 Propofol (Diprivan 20 Ml) Confirm Administered Dose 200 mg .ROUTE .STK-MED ONE Stop: 05/19/16 12:14 Propofol (Diprivan 20 Ml) Confirm Administered Dose 200 mg .ROUTE .STK-MED ONE Stop: 05/21/16 08:19 Rocuronium [place] (Zemuron) Confirm Administered Dose 100 mg .ROUTE .ST-MED ONE Stop: 05/09/16 08:37 Rocuronium [place] (Zemuron) Confirm Administered Dose 50 mg .ROUTE .STK-MED ONE Stop: 05/14/16 07:44 Rocuronium [place] (Zemuron) Confirm Administered Dose 50 mg .ROUTE .STK-MED ONE Stop: 05/19/16 12:14 Scopolamine (Transderm-Scop) 1.5 mg TOP Q72H [facility] Stop: 05/12/16 06:00 Last Admin: 05/09/16 07:53 Dose: 1.5 mg Scopolamine (Transderm-Scop) Confirm Administered Dose 1.5 mg .ROUTE .STK-MED ONE Stop: 05/09/16 08:37 Scopolamine (Transderm-Scop) 1.5 mg TOP ASDIRECTED [facility] Stop: 05/12/16 16:00 Scopolamine (Transderm-Scop) 1.5 mg TOP Q72H [facility] Last Admin: 05/12/16 09:17 Dose: 1.5 mg Sodium Chloride (Saline Flush) 10 ml FLUSH ONETIME ONE Stop: 05/13/16 18:10 Last Admin: 05/13/16 19:22 Dose: 10 ml Succinylcholine Chloride (Succinylcholine In Ns Pf) Confirm Administered Dose 200 mg .ROUTE .STK-MED ONE Stop: 05/09/16 08:37 Succinylcholine Chloride (Succinylcholine In Ns Pf) Confirm Administered Dose 200 mg .ROUTE .STK-MED ONE Stop: 05/14/16 07:44 Succinylcholine Chloride (Succinylcholine In Ns Pf) Confirm Administered Dose 200 mg .ROUTE .STK-MED ONE Stop: 05/19/16 12:14 Vancomycin HCl (Vancomycin) 1 gm IV .PHARMACY TO DOSE SARAHY - Exam Quality Assessment: No: supplemental oxygen General: alert, oriented, cooperative, no acute distress Neck: supple Lungs: Clear to auscultation, Normal respiratory effort, Decreased breath sounds (mild left lung base) Cardiovascular: Regular Rate, Regular Rhythm Abdomen: bowel sounds present, soft, no distension Extremities: no edema, no cyanosis Skin: warm, dry Psy/Mental Status: alert, normal affect Consult PN Assessment/Plan Procedures: Procedures ASSAY OF LACTIC ACID (03/04/16) ASSAY OF MAGNESIUM (04/07/16) ASSAY OF PHOSPHORUS (04/07/16) ASSAY THYROID STIM HORMONE (10/08/15) BLOOD TYPING SEROLOGIC ABO (04/14/15) BLOOD TYPING SEROLOGIC RH(D) (04/14/15) C-REACTIVE PROTEIN (04/07/16) COMPLETE CBC AUTOMATED (04/07/16) COMPLETE CBC W/AUTO DIFF WBC (04/07/16) COMPREHEN METABOLIC PANEL (04/07/16) CT ABD & PELV W/CONTRAST (03/04/16) CULTURE SCREEN ONLY (11/10/15) ELECTROCARDIOGRAM TRACING (04/14/15) EMERGENCY DEPT VISIT (04/07/16) HYDRATE IV INFUSION ADD-ON (04/07/16) MEASURE BLOOD OXYGEN LEVEL (01/01/16) METABOLIC PANEL TOTAL CA (03/04/16) PT EVALUATION (11/10/15) RBC ANTIBODY SCREEN (04/14/15) ROUTINE VENIPUNCTURE (04/07/16) SPECIAL STAINS GROUP 2 (04/14/15) THER/PROPH/DIAG INJ IV PUSH (04/07/16) THER/PROPH/DIAG IV INF ADDON (03/04/16) THER/PROPH/DIAG IV INF INIT (03/04/16) THERAPEUTIC ACTIVITIES (11/10/15) TISSUE EXAM BY PATHOLOGIST (01/01/16) TISSUE EXAM BY PATHOLOGIST (01/01/16) TISSUE EXAM BY PATHOLOGIST (04/14/15) TISSUE EXAM BY PATHOLOGIST (04/14/15) TX/PRO/DX INJ NEW DRUG ADDON (04/07/16) URINALYSIS AUTO W/SCOPE (04/07/16) X-RAY EXAM OF ABDOMEN (04/07/16) X-RAY EXAM SERIES ABDOMEN (04/07/16) X-RAY UPPER GI DELAY W/O KUB (03/04/16) X-RAY UPPER GI&SMALL INTEST (04/07/16) (1) Elevated bilirubin SNOMED Code(s): 413434122 Code(s): R17 - UNSPECIFIED JAUNDICE Current Visit: Yes Problem List Initiated/Reviewed/Updated: Yes My Orders last 24 hours: My Active Orders 05/26/16 12:02 Acetaminophen [Tylenol] 650 mg PO Q4H PRN 05/26/16 12:22 HYDROmorphone [Dilaudid] 0.5 mg IVPUSH Q2H PRN HYDROmorphone [Dilaudid] 2 mg PO Q3H PRN 05/26/16 21:00 Ciprofloxacin in D5W [Cipro in D5W 400 MG/200 ML] 400 mg Premix Bag 1 bag IV Q12H Plan: Assessment and Plan - Abdominal abscess with peritonitis secondary to JJ leak - status post exploratory laparotomy 3/4 and again last week because of splenic abscess. Cultures from wound and drains are growing Escherichia coli, Enterobacter, and relatively rare species of enterococcus it is often resistant to vancomycin. ongoing clinical improvement but not tolerating much of a diet. Full dose TPN could be contributing to lack of an appetite. -continue linezolid -discontinue gentamicin, start ciprofloxacin -Followup cultures, enterococcus is being sent to reference lab for sensitivities -additional postop cares per surgical team -Continue nutritional support with TPN, try to wean as able to improve appetite -plan to transition to oral pain medications today, [place] [employer] Hypoxia - small pleural effusions but clinically improving. Patient is diuresing without medication supplementation. Does not require oxygen. -Monitor urine output -Wean oxygen as able Eduard Bedolla M.D.
[2016-05-26] MEDS: Acetaminophen 325 MG Tab PO PRN ×2 (13:08→16:59)
[2016-05-26] MEDS: HYDROmorphone 2 MG Tab PO PRN ×4 (13:08→20:11)
[2016-05-26] MEDS: Pantoprazole 40 MG Vial IV SCH (15:51)
[2016-05-26] MEDS ORDERED: Acetaminophen 1,000 MG in Premix Bag 1 BAG IV PRN (19:55)
[2016-05-26] MEDS: Ciprofloxacin in D5W 400 MG in Premix Bag 1 BAG IV SCH ×2 (21:29)
[2016-05-27] MEDS: HYDROmorphone 2 MG Tab PO PRN ×5 (00:19→20:09)
[2016-05-27] MEDS: Acetaminophen 325 MG Tab PO PRN ×4 (05:52→22:00)
[2016-05-27] MEDS: 1: AA 5%/Calcium/D15W/Lytes 1,000 ML with MVI, Adult with Vitamin K 10 ML, Chromium/Copp IV SCH ×6 (06:27→19:46)
[2016-05-27] MEDS ORDERED: Central Total Parenteral Nutrition Bag SCH (07:45)
[2016-05-27] MEDS: Ondansetron 4 MG/2 ML SDV IVPUSH PRN ×2 (09:10→18:01)
--- NOTE | 2016-05-27 09:15 | PN ---
DATE OF SERVICE: 05/27/2016 SUBJECTIVE: Carolyn has had decreased oral intake. She states her pain got ahead of her yesterday. TPN was discontinued as well as IV Tylenol. She had gotten her walks in, having bowel movements, states she does feel like she could eat a little bit more. Hemoglobin is 9.9 this morning after 2 units of packed red blood cells. Oral intake was 160 mL. LACIE drains B, C, D, E, F, G, H, I, J has put out 0, 15, 0, 10, 0, 0, 10, 5, 15, 15 of a pink- tinged serosanguineous drainage, the ones that have drained. LACIE drain a has put out 70 mL, and it is bile colored. REVIEW OF SYSTEMS: Remainder of review of systems negative for any pertinent positives or negatives. OBJECTIVE: GENERAL: Carolyn Hanks is a 55-year-old female. She is sitting up in bed. Alert and orientated. VITAL SIGNS: TPR is 98.5, 81, 18, blood pressure 132/74. HEENT: Negative. NECK: Supple. HEART: Regular rate and rhythm. LUNGS: Clear. ABDOMEN: Stapled incisions look good. Abdominal binder has been on. LACIE drains as noted above, some discrepancy in the LACIE drains. The LACIE drain B is the one that right now has the bile-colored drainage. ASSESSMENT: 1. Exploratory laparotomy, total abdominal colectomy with ileal rectal anastomosis, revision of small bowel, component of the [place]-en-Y gastric bypass, embolectomy ablation focal area of the pelvic endometriosis, left pelvic sidewall, and placement of Interceed mesh to displace small bowel from pelvic and abdominal wall to limit recurrent adhesive formation on 05/09/2016. 2. Delayed primary closure for open incision on 05/11/2016. 3. Insertion of left subclavian triple lumen, drainage of intraabdominal abscess, irrigation of diffuse peritonitis small bowel resection, separate jejunostomy to re- establish [place] small bowel anatomy for leak at the jejunostomy focal abscess in the left upper quadrant. Diffuse peritonitis involving the lower 2/3 of abdomen and pelvis, and limited pelvis anus abscess on 05/14/2016. 4. Delayed primary closure 05/17/2016. 5. 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 6. Delayed primary closure 05/21/2016. PLAN: 1. Continue oral pain medication of Dilaudid and Tylenol. 2. Step-2 gastric bypass diet with cereal. 3. Check C. diff on watery stool. Specimen has to be watery/liquid. 4. Probiotics, take 2 b.i.d. 5. Continue same TPN rate and content. 6. Check CBC, CMP, and Mag phos in a.m. 7. We will leave murtaza in due to malnutrition and slow to assure adequate healing has taken place. Gail Pedro PA-C /[id number]
[2016-05-27] MEDS: Lubiprostone 24 MCG Cap PO SCH ×2 (09:23→18:01)
[2016-05-27] MEDS: Lactobacillus Rhamnosus GG (Probiotic) Cap PO SCH ×2 (09:23→20:13)
[2016-05-27] MEDS: Ciprofloxacin in D5W 400 MG in Premix Bag 1 BAG IV SCH ×4 (09:23→20:13)
[2016-05-27] MEDS: Bisacodyl 10 MG Supp RECTAL SCH ×2 (09:23→20:14)
[2016-05-27] MEDS: Lactated Ringers 1,000 ML IV SCH (12:00)
[2016-05-27] MEDS: Linezolid 600 MG in Premix Bag 1 BAG IV SCH (12:01)
--- NOTE | 2016-05-27 14:35 | PCM.CONSN ---
- General Info Date of Service: 05/27/16 Functional Status: Reports: pain controlled, tolerating diet, ambulating - Review of Systems General: Reports: Weakness, Fatigue Gastrointestinal: Reports: Abdominal pain Systems Review Comment:: No acute events overnight the patient had an increase in her abdominal pain yesterday. Abdominal pain is back to a similar level to that of yesterday morning which is quite tolerable. Seems to be tolerating her diet and has been able to improve her oral intake some. Still not eating well by any means. No fevers overnight. White blood cell count is continuing to improve and has normalized today. Mild to moderate abdominal pain continues to be reported. She feels tired and is interested in a day of last intense activity. - Patient Data Vitals - most recent: Last Vital Signs Temp 36.2 C 05/27/16 10:39 Pulse 66 05/27/16 10:39 Resp 18 05/27/16 10:39 BP 122/68 05/27/16 10:39 Pulse Ox 99 05/27/16 10:39 Weight - most recent: 60.781 kg I&O - last 24 hours: Intake & Output 05/26/16 05/27/16 05/27/16 22:59 06:59 14:59 Intake Total 2089 1403 500 Output Total 2100 2465 1850 Balance -01 -3231 -1182 Lab Results last 24 hrs: Laboratory Results - last 24 hr 05/26/16 05/26/16 05/27/16 Range/Units 05:00 16:26 04:33 WBC 11.1 H 9.6 (4.5-11.0) K/uL RBC 3.71 3.56 (3.30-5.50) M/uL Hgb 10.3 L D 9.9 L (12.0-15.0) g/dL Hct 31.4 L 30.0 L (36.0-48.0) % MCV 85 84 (80-98) fL MCH 28 28 (27-31) pg MCHC 33 33 (32-36) % Plt Count 829 H 823 H (150-400) K/uL Sodium (140-148) mmol/L Potassium (3.6-5.2) mmol/L Chloride (100-108) mmol/L Carbon Dioxide (21-32) mmol/L Anion Gap (5.0-14.0) mmol/L BUN (7-18) mg/dL Creatinine (0.6-1.0) mg/dL Est Cr Clr Drug Dosing mL/min Estimated GFR (MDRD) (>60) Glucose (74-106) mg/dL Calcium (8.5-10.1) mg/dL Phosphorus (2.5-4.9) mg/dL Magnesium (1.8-2.4) mg/dL Total Bilirubin (0.2-1.0) mg/dL AST (15-37) U/L ALT (12-78) U/L Alkaline Phosphatase (46-116) U/L Total Protein (6.4-8.2) g/dL Albumin (3.4-5.0) g/dL Globulin (2.3-3.5) g/dL Albumin/Globulin Ratio (1.2-2.2) Blood Type A POSITIVE Gel Antibody Screen Negative Crossmatch See Detail 05/27/16 Range/Units 04:33 WBC (4.5-11.0) K/uL RBC (3.30-5.50) M/uL Hgb (12.0-15.0) g/dL Hct (36.0-48.0) % MCV (80-98) fL MCH (27-31) pg MCHC (32-36) % Plt Count (150-400) K/uL Sodium 139 L (140-148) mmol/L Potassium 4.1 (3.6-5.2) mmol/L Chloride 105 (100-108) mmol/L Carbon Dioxide 25 (21-32) mmol/L Anion Gap 13.1 (5.0-14.0) mmol/L BUN 17 (7-18) mg/dL Creatinine 0.5 L (0.6-1.0) mg/dL Est Cr Clr Drug Dosing 119.11 mL/min Estimated GFR (MDRD) > 60 (>60) Glucose 111 H (74-106) mg/dL Calcium 8.6 (8.5-10.1) mg/dL Phosphorus 4.1 (2.5-4.9) mg/dL Magnesium 2.0 (1.8-2.4) mg/dL Total Bilirubin 0.4 (0.2-1.0) mg/dL AST 20 (15-37) U/L ALT 40 (12-78) U/L Alkaline Phosphatase 102 (46-116) U/L Total Protein 6.6 (6.4-8.2) g/dL Albumin 2.6 L (3.4-5.0) g/dL Globulin 4.0 H (2.3-3.5) g/dL Albumin/Globulin Ratio 0.7 L (1.2-2.2) Blood Type Gel Antibody Screen Crossmatch Dereje Results last 24 hrs: Microbiology 05/19/16 14:17 Specimen Source - Final Specimen Type Unknown Bacterial Sensitivity - Final Enterococcus Specimen Comment (DEREJE) - Final Med Orders - Current: Current Medications Acetaminophen (Tylenol) 650 mg RECTAL Q4H PRN PRN Reason: Fever Last Admin: 05/18/16 05:53 Dose: 650 mg Acetaminophen (Tylenol) 650 mg PO Q4H PRN PRN Reason: Pain/Fever Last Admin: 05/27/16 11:59 Dose: 650 mg Bacitracin (Bacitracin Oint 1 Gm) 1 dose TOP BID PRN PRN Reason: burn Last Admin: 05/12/16 20:31 Dose: 2 dose Bisacodyl (Dulcolax) 10 mg RECTAL BID SARAHY Last Admin: 05/27/16 09:23 Dose: Not Given Dimethicone/Zinc Oxide (Rash Relief-Zinc Oxide [place]) 1 gm TOP ASDIRECTED PRN PRN Reason: Other Last Admin: 05/12/16 20:30 Dose: 1 bot Diphenhydramine HCl (Benadryl) 25 - 50 mg IVPUSH Q4H PRN PRN Reason: ITCHING Heparin Sodium (Porcine) (Heparin Lock Flush 100 Units/Ml Syringe) 500 units IVPUSH ASDIRECTED PRN PRN Reason: TWILL CUTTER Last Admin: 05/26/16 15:51 Dose: 500 units Hydromorphone HCl (Dilaudid) 0.5 mg IVPUSH Q2H PRN PRN Reason: Pain (severe 7-10) Hydromorphone HCl (Dilaudid) 2 - 4 mg PO Q4H PRN PRN Reason: Pain Last Admin: 05/27/16 09:18 Dose: 4 mg Lactated Ringer's (Ringers, Lactated) 1,000 mls @ 0 mls/hr IV ASDIRECTED SARAHY PRN Reason: KVO Last Admin: 05/27/16 12:00 Dose: 20 mls/hr Multivitamins/Minerals 10 ml/Chromium/Copper/Manganese/Seleni/Zn 1 ml/ Amino Ac/ Electrol/Dextrose/Calcium 1,011 mls @ 82 mls/hr IV .BY DURATION [facility] Last Admin: 05/26/16 17:52 Dose: 82 mls/hr Amino Ac/Electrol/Dextrose/Calcium (Clinimix E 5/15) 1,000 mls @ 82 mls/hr IV .BY DURATION [facility] Last Admin: 05/27/16 06:27 Dose: 82 mls/hr Ciprofloxacin/Dextrose 400 mg/ (Premix) 200 mls @ 200 mls/hr IV Q12H [facility] Last Admin: 05/27/16 09:23 Dose: 200 mls/hr Lactobacillus Rhamnosus (Culturelle) 2 cap PO BID [facility] Last Admin: 05/27/16 09:23 Dose: 2 cap Lubiprostone (Amitiza) 24 mcg PO BIDMEALS [facility] Last Admin: 05/27/16 09:23 Dose: 24 mcg Naloxone HCl (Narcan) 0.1 mg IV ASDIRECTED PRN PRN Reason: decreased respiratory rate Ondansetron HCl (Zofran) 4 mg IVPUSH Q4H PRN PRN Reason: Nausea/Vomiting Last Admin: 05/27/16 09:10 Dose: 4 mg Pantoprazole Sodium (Protonix) 40 mg PO Q24H [facility] Senna/Docusate Sodium (Senna Plus) 1 tab PO BID [facility] Last Admin: 05/27/16 09:24 Dose: Not Given Discontinued Medications Acetaminophen (Tylenol) 650 mg PO Q6H [facility] Last Admin: 05/16/16 09:03 Dose: Not Given Albuterol/Ipratropium (Duoneb 3.0-0.5 Mg/3 Ml) 3 ml NEB ONETIME STA Stop: 05/13/16 19:09 Last Admin: 05/13/16 19:21 Dose: 3 ml Alvimopan (Entereg) 12 mg PO ONETIME ONE Stop: 05/09/16 08:31 Last Admin: 05/09/16 08:30 Dose: 12 mg Alvimopan (Entereg) 12 mg PO Q12H [facility] Stop: 05/16/16 09:01 Last Admin: 05/10/16 09:04 Dose: 12 mg Bisacodyl (Dulcolax) 10 mg PO BID SARAHY Last Admin: 05/11/16 09:52 Dose: Not Given Bupivacaine HCl (Marcaine 0.5%) Confirm Administered Dose 50 ml .ROUTE .STK-MED ONE Stop: 05/11/16 06:49 Last Admin: 05/11/16 09:09 Dose: 32 ml Bupivacaine HCl (Marcaine 0.5%) Confirm Administered Dose 50 ml .ROUTE .STK-MED ONE Stop: 05/17/16 06:47 Last Admin: 05/17/16 08:07 Dose: 20 ml Bupivacaine HCl (Marcaine 0.5%) Confirm Administered Dose 50 ml .ROUTE .STK-MED ONE Stop: 05/19/16 14:06 Bupivacaine HCl (Marcaine 0.5%) Confirm Administered Dose 50 ml .ROUTE .STK-MED ONE Stop: 05/21/16 06:21 Last Admin: 05/21/16 08:48 Dose: 10 ml Bupivacaine HCl/Epinephrine Bitart (Marcaine 0.5%/Epinephrine 1:200,000) Confirm Administered Dose 50 ml .ROUTE .STK-MED ONE Stop: 05/19/16 14:06 Last Admin: 05/19/16 14:10 Dose: 25 ml Cefoxitin Sodium (Mefoxin) Confirm Administered Dose 2 gm .ROUTE .STK-MED ONE Stop: 05/09/16 06:55 Neomycin/Polymyxin 1 ml/ (Sodium Chloride 750 ml) 0 ml .XX ONETIME ONE Stop: 05/09/16 09:16 Last Admin: 05/09/16 13:25 Dose: Not Given Cyanocobalamin (Vitamin B12) 1,000 mcg IM ONETIME ONE Stop: 05/11/16 09:01 Last Admin: 05/11/16 09:53 Dose: 1,000 mcg Cyclobenzaprine HCl (Flexeril) 10 mg PO Q6H PRN PRN Reason: Muscle Spasm Last Admin: 05/13/16 06:22 Dose: 10 mg Dexamethasone (Dexamethasone) Confirm Administered Dose 4 mg .ROUTE .STK-MED ONE Stop: 05/09/16 08:37 Dexamethasone (Dexamethasone) Confirm Administered Dose 4 mg .ROUTE .STK-MED ONE Stop: 05/14/16 07:44 Dexamethasone (Dexamethasone) Confirm Administered Dose 4 mg .ROUTE .STK-MED ONE Stop: 05/19/16 12:14 Diatrizoate Meglum/Diatrizoate Sod (Gastrografin 37%) 30 ml PO . DIRECTED SARAHY Stop: 05/13/16 19:46 Last Admin: 05/13/16 19:33 Dose: 30 mg Diphenhydramine HCl (Benadryl) 25 mg IVPUSH Q6H PRN PRN Reason: ITCHING Diphenoxylate HCl/Atropine (Lomotil 0.025-2.5 Mg) 1 tab PO ONETIME ONE Stop: 05/12/16 10:36 Last Admin: 05/12/16 10:55 Dose: 1 tab Diphenoxylate HCl/Atropine (Lomotil 0.025-2.5 Mg) 1 tab PO Q6H PRN PRN Reason: Diarrhea Edrophonium Chloride (Enlon) Confirm Administered Dose 150 mg .ROUTE .STK-MED ONE Stop: 05/14/16 10:59 Edrophonium Chloride (Enlon) Confirm Administered Dose 150 mg .ROUTE .STK-MED ONE Stop: 05/19/16 14:23 Fentanyl (Sublimaze) Confirm Administered Dose 500 mcg .ROUTE .STK-MED ONE Stop: 05/09/16 08:37 Fentanyl (Sublimaze) Confirm Administered Dose 100 mcg .ROUTE .STK-MED ONE Stop: 05/09/16 08:39 Fentanyl (Duragesic) 12 mcg TRDERM Q72H [facility] Last Admin: 05/13/16 13:15 Dose: Not Given Fentanyl (Sublimaze) Confirm Administered Dose 250 mcg .ROUTE .STK-MED ONE Stop: 05/14/16 07:44 Fentanyl (Duragesic) 25 mcg TRDERM Q72H [facility] Last Admin: 05/14/16 16:58 Dose: Not Given Fentanyl (Sublimaze) Confirm Administered Dose 100 mcg .ROUTE .STK-MED ONE Stop: 05/17/16 07:22 Fentanyl (Sublimaze) Confirm Administered Dose 250 mcg .ROUTE .STK-MED ONE Stop: 05/19/16 12:13 Fentanyl (Sublimaze) Confirm Administered Dose 100 mcg .ROUTE .STK-MED ONE Stop: 05/21/16 08:19 Furosemide (Lasix) 20 mg IVPUSH ONETIME ONE Stop: 05/13/16 18:01 Last Admin: 05/13/16 18:21 Dose: 20 mg Gabapentin (Neurontin) 300 mg PO ONETIME ONE Stop: 05/09/16 08:16 Last Admin: 05/09/16 07:53 Dose: 300 mg Gabapentin (Neurontin) 300 mg PO TID [facility] Last Admin: 05/12/16 21:54 Dose: 300 mg Glycopyrrolate () Confirm Administered Dose 1 mg .ROUTE .STK-MED ONE Stop: 05/09/16 08:37 Glycopyrrolate () Confirm Administered Dose 1 mg .ROUTE .STK-MED ONE Stop: 05/14/16 07:44 Glycopyrrolate () Confirm Administered Dose 1 mg .ROUTE .STK-MED ONE Stop: 05/19/16 12:14 Heparin Sodium (Porcine) (Heparin Sodium) 5,000 units SUBCUT Q12H [facility] Stop: 05/10/16 20:00 Last Admin: 05/10/16 06:23 Dose: 5,000 units Heparin Sodium (Porcine) (Heparin Sodium) 5,000 units SUBCUT Q12H [facility] Heparin Sodium (Porcine) (Heparin Sodium) 5,000 units SUBCUT ONETIME ONE Stop: 05/10/16 17:01 Last Admin: 05/10/16 16:45 Dose: 5,000 units Heparin Sodium (Porcine) (Heparin Lock Flush 100 Units/Ml Syringe) 500 units FLUSH .STK-MED ONE Stop: 05/14/16 10:20 Last Admin: 05/14/16 10:19 Dose: 500 units Heparin Sodium (Porcine) (Heparin Lock Flush 100 Units/Ml Syringe) Confirm Administered Dose 500 units .ROUTE .STK-MED ONE Stop: 05/15/16 17:28 Last Admin: 05/15/16 19:22 Dose: Not Given Heparin Sodium (Porcine) (Heparin Lock Flush 100 Units/Ml Syringe) Confirm Administered Dose 500 units .ROUTE .STK-MED ONE Stop: 05/19/16 21:35 Last Admin: 05/19/16 21:50 Dose: 500 units Hydromorphone HCl (Dilaudid) 2 - 4 mg PO Q4H PRN PRN Reason: PAIN Last Admin: 05/14/16 02:12 Dose: 4 mg Hydromorphone HCl (Dilaudid Professor [employer] Literacy 15 Mg In Ns 30 Ml) 0 mg IV ASDIRECTED PRN; Protocol PRN Reason: DISASTER OR DAMAGE CONTROL SPECIALIST PAIN CONTROL Last Admin: 05/26/16 10:24 Dose: 15 mg Hydromorphone HCl (Dilaudid) 2 mg PO Q3H PRN PRN Reason: Pain (moderate 4-6) Last Admin: 05/26/16 19:10 Dose: 2 mg Hydroxyzine HCl (Vistaril) 75 - 100 mg IM Q4H PRN PRN Reason: PAIN NOT CONTROLLED BY DISASTER OR DAMAGE CONTROL SPECIALIST Last Admin: 05/13/16 02:48 Dose: 100 mg Hydroxyzine HCl (Vistaril) 100 mg IM Q4H PRN PRN Reason: PAIN NOT CONTROLLED BY DISASTER OR DAMAGE CONTROL SPECIALIST Last Admin: 05/21/16 10:40 Dose: 100 mg Dextrose/Lactated Ringer's (Dextrose 5%-Lactated Ringers) 1,000 mls @ 100 mls/ hr IV ASDIRECTED SARAHY Last Admin: 05/09/16 07:55 Dose: 100 mls/hr Cefoxitin Sodium 2 gm/ Sodium (Chloride) 50 mls @ 100 mls/hr IV ONETIME ONE Stop: 05/09/16 09:44 Last Admin: 05/09/16 09:08 Dose: 100 mls/hr Fentanyl 2,500 mcg/ Sodium (Chloride) 250 mls @ 0 mls/hr EPIDUR TITRATE SARAHY; Titrate PRN Reason: Protocol Last Admin: 05/10/16 09:12 Dose: 10 ml/hr, 10 mls/hr Ketamine HCl 100 mg/ Sodium (Chloride) 100 mls @ 18 mls/hr IV ASDIRECTED SARAHY Stop: 05/09/16 13:00 Lactated Ringer's (Ringers, Lactated) Confirm Administered Dose 1,000 mls @ as directed .ROUTE .STK-MED ONE Stop: 05/09/16 08:37 Sodium Chloride (Normal Saline) Confirm Administered Dose 10 mls @ as directed .ROUTE .STK-MED ONE Stop: 05/09/16 08:39 Lidocaine HCl (Xylocaine-Mpf 1%) Confirm Administered Dose 2 mls @ as directed .ROUTE .STK-MED ONE Stop: 05/09/16 09:24 Lactated Ringer's (Ringers, Lactated) Confirm Administered Dose 1,000 mls @ as directed .ROUTE .STK-MED ONE Stop: 05/09/16 11:10 Lactated Ringer's (Ringers, Lactated) 500 mls @ 500 mls/hr IV .BOLUS ONE Stop: 05/09/16 14:59 Last Admin: 05/09/16 14:03 Dose: 500 mls/hr Dextrose/Lactated Ringer's (Dextrose 5%-Lactated Ringers) 1,000 mls @ 200 mls/ hr IV ASDIRECTED [facility] Stop: 05/10/16 17:59 Last Admin: 05/10/16 15:05 Dose: 200 mls/hr Multivitamins/Minerals 10 ml/Thiamine HCl 200 mg/ Chromium/Copper/Manganese/ Seleni/Zn 1 ml/ Dextrose/Lactated Ringer's 1,013 mls @ 100 mls/hr IV DAILY@ 1600 [facility] Last Admin: 05/14/16 16:33 Dose: Not Given Cefoxitin Sodium 2 gm/ Sodium (Chloride) 50 mls @ 100 mls/hr IV Q6H [facility] Last Admin: 05/12/16 03:39 Dose: 100 mls/hr Acetaminophen 1,000 mg/ Premix 100 mls @ 400 mls/hr IV Q6H [facility] Stop: 05/10/16 04:14 Last Admin: 05/10/16 04:19 Dose: 400 mls/hr Ketamine HCl 100 mg/ Sodium (Chloride) 101 mls @ as directed IV .STK-MED ONE Stop: 05/09/16 09:46 Dextrose/Lactated Ringer's (Dextrose 5%-Lactated Ringers) 1,000 mls @ 100 mls/ hr IV ASDIRECTED [facility] Last Admin: 05/13/16 02:59 Dose: 100 mls/hr Magnesium Sulfate 2 gm/ Sodium (Chloride) 54 mls @ 27 mls/hr IV ONETIME ONE Stop: 05/13/16 11:59 Last Admin: 05/13/16 10:01 Dose: 27 mls/hr Magnesium Sulfate 2 gm/ Premix 50 mls @ 25 mls/hr IV Q6H [facility] Stop: 05/15/16 05:59 Last Admin: 05/16/16 09:03 Dose: Not Given Potassium Phosphate 20 mmole/ (Sodium Chloride) 256.6667 mls @ 85 mls/hr IV Q3H [facility] Stop: 05/13/16 18:59 Last Admin: 05/13/16 19:49 Dose: 85 mls/hr Dextrose/Lactated Ringer's (Dextrose 5%-Lactated Ringers) 1,000 mls @ 80 mls/ hr IV ASDIRECTED [facility] Stop: 05/14/16 14:29 Last Admin: 05/13/16 18:20 Dose: 25 mls/hr Meropenem 500 mg/ Sodium (Chloride) 50 mls @ 100 mls/hr IV ONETIME ONE Stop: 05/13/16 18:29 Last Admin: 05/13/16 18:28 Dose: 100 mls/hr Sodium Chloride (Normal Saline) 70 mls @ 3 mls/sec IV ASDIRECTED [facility] Last Admin: 05/13/16 19:22 Dose: 3 mls/sec Meropenem 500 mg/ Sodium (Chloride) 50 mls @ 100 mls/hr IV Q6H [facility] Last Admin: 05/23/16 10:20 Dose: 100 mls/hr Aztreonam 1 gm/ Sodium (Chloride) 50 mls @ 100 mls/hr IV Q8HR [facility] Last Admin: 05/14/16 05:39 Dose: 100 mls/hr Aztreonam/Dextrose 1 gm/ (Premix) 50 mls @ 100 mls/hr IV Q8H [facility] Last Admin: 05/21/16 14:02 Dose: 100 mls/hr Sodium Chloride (Normal Saline) Confirm Administered Dose 10 mls @ as directed .ROUTE .ST-MED ONE Stop: 05/14/16 08:52 Sodium Chloride (Normal Saline) Confirm Administered Dose 10 mls @ as directed .ROUTE .[facility] ONE Stop: 05/14/16 09:28 Lactated Ringer's (Ringers, Lactated) Confirm Administered Dose 1,000 mls @ as directed .ROUTE .ST-MED ONE Stop: 05/14/16 09:34 Multivitamins/Minerals 10 ml/Chromium/Copper/Manganese/Seleni/Zn 1 ml/ Amino Ac/ Electrol/Dextrose/Calcium 1,011 mls @ 82 mls/hr IV .BY DURATION [facility] Stop: 05/16/16 10:59 Last Admin: 05/15/16 15:31 Dose: 82 mls/hr Amino Ac/Electrol/Dextrose/Calcium (Clinimix E 07/25) 1,000 mls @ 82 mls/hr IV .BY DURATION [facility] Stop: 05/16/16 10:59 Last Admin: 05/16/16 03:41 Dose: 82 mls/hr Lactated Ringer's (Ringers, Lactated) 1,000 mls @ 100 mls/hr IV ASDIRECTED [facility] Last Admin: 05/20/16 03:16 Dose: 100 mls/hr Acetaminophen 1,000 mg/ Premix 100 mls @ 400 mls/hr IV Q6H SARAHY Stop: 05/15/16 10:14 Last Admin: 05/15/16 10:12 Dose: 400 mls/hr Albumin Human (Flexbumin 25%) 50 mls @ 50 mls/hr IV Q24H [facility]AH[facility] Stop: 05/23/16 23:00 Last Admin: 05/23/16 09:14 Dose: 50 mls/hr Albumin Human (Flexbumin 25%) 50 mls @ 50 mls/hr IV Q24H SARAHY Stop: 05/23/16 23:00 Last Admin: 05/23/16 10:19 Dose: 50 mls/hr Albumin Human (Flexbumin 25%) 50 mls @ 50 mls/hr IV Q24H SARAHY Stop: 05/23/16 23:00 Last Admin: 05/23/16 12:05 Dose: 50 mls/hr Albumin Human (Flexbumin 25%) 50 mls @ 50 mls/hr IV Q24H [facility] Stop: 05/23/16 23:00 Last Admin: 05/23/16 11:09 Dose: 50 mls/hr Potassium Phosphate 15 mmole/Lidocaine HCl 2 ml/ Sodium Chloride 157 mls @ 53 mls/hr IV Q3H [facility] Stop: 05/15/16 15:58 Last Admin: 05/15/16 13:04 Dose: 53 mls/hr Multivitamins/Minerals 10 ml/Chromium/Copper/Manganese/Seleni/Zn 1 ml/ Amino Ac/ Electrol/Dextrose/Calcium 1,011 mls @ 82 mls/hr IV .BY DURATION [facility] Stop: 05/23/16 14:30 Last Admin: 05/22/16 16:20 Dose: 82 mls/hr Amino Ac/Electrol/Dextrose/Calcium (Clinimix E 5/15) 1,000 mls @ 82 mls/hr IV .BY DURATION [facility] Stop: 05/23/16 14:30 Last Admin: 05/23/16 03:51 Dose: 82 mls/hr Potassium Phosphate 15 mmole/ (Sodium Chloride) 155 mls @ 55 mls/hr IV Q3H [facility] Stop: 05/16/16 16:50 Last Admin: 05/16/16 17:27 Dose: 55 mls/hr Levofloxacin/Dextrose 750 mg/ (Premix) 150 mls @ 100 mls/hr IV Q24H [facility] Last Admin: 05/21/16 11:17 Dose: 100 mls/hr Vancomycin HCl 1.3 gm/ Sodium (Chloride) 250 mls @ 167 mls/hr IV ONETIME ONE Stop: 05/17/16 14:29 Last Admin: 05/17/16 13:18 Dose: 167 mls/hr Vancomycin HCl 1 gm/ Sodium (Chloride) 250 mls @ 167 mls/hr IV Q12H [facility] Last Admin: 05/19/16 00:30 Dose: 167 mls/hr Sodium Chloride (Normal Saline) 70 mls @ 3 mls/sec IV ASDIRECTED [facility] Stop: 05/19/16 08:30 Lactated Ringer's (Ringers, Lactated) Confirm Administered Dose 1,000 mls @ as directed .ROUTE .STK-MED ONE Stop: 05/19/16 13:23 Sodium Chloride (Normal Saline) Confirm Administered Dose 10 mls @ as directed .ROUTE .STK-MED ONE Stop: 05/19/16 13:31 Vancomycin HCl 1 gm/ Sodium (Chloride) 250 mls @ 167 mls/hr IV Q8H [facility] Last Admin: 05/21/16 00:14 Dose: 167 mls/hr Fluconazole/Sodium Chloride (400 mg/ Premix) 200 mls @ 100 mls/hr IV Q24H [facility] Last Admin: 05/23/16 08:11 Dose: 100 mls/hr Vancomycin HCl 1.1 gm/ Sodium (Chloride) 250 mls @ 167 mls/hr IV Q8H [facility] Stop: 05/21/16 12:00 Last Admin: 05/21/16 09:50 Dose: 167 mls/hr Vancomycin HCl 1.1 gm/ Sodium (Chloride) 250 mls @ 167 mls/hr IV Q8H [facility] Last Admin: 05/22/16 09:28 Dose: 167 mls/hr Acetaminophen 1,000 mg/ Premix 100 mls @ 400 mls/hr IV Q6H PRN PRN Reason: Fever Stop: 05/22/16 21:01 Last Admin: 05/22/16 16:11 Dose: 400 mls/hr Linezolid 600 mg/ Premix 300 mls @ 300 mls/hr IV Q12H [facility] Last Admin: 05/27/16 12:01 Dose: 300 mls/hr Gentamicin Sulfate 360 mg/ (Sodium Chloride) 159 mls @ 106 mls/hr IV Q24H [facility] Last Admin: 05/22/16 14:13 Dose: 106 mls/hr Acetaminophen 1,000 mg/ Premix 100 mls @ 400 mls/hr IV Q6H PRN PRN Reason: Pain/Fever Stop: 05/23/16 22:01 Last Admin: 05/23/16 21:13 Dose: 400 mls/hr Gentamicin Sulfate 420 mg/ (Sodium Chloride) 160.5 mls @ 107 mls/hr IV Q24H [facility] Last Admin: 05/25/16 13:29 Dose: 107 mls/hr Acetaminophen 1,000 mg/ Premix 100 mls @ 400 mls/hr IV Q6H PRN PRN Reason: Pain Stop: 05/25/16 06:39 Last Admin: 05/25/16 00:27 Dose: 400 mls/hr Acetaminophen 1,000 mg/ Premix 100 mls @ 400 mls/hr IV Q6H PRN PRN Reason: Pain Stop: 05/26/16 07:39 Last Admin: 05/26/16 05:14 Dose: 400 mls/hr Acetaminophen 1,000 mg/ Premix 100 mls @ 400 mls/hr IV Q6H PRN PRN Reason: Pain Stop: 05/27/16 19:56 Last Admin: 05/26/16 20:17 Dose: 400 mls/hr Ibuprofen (Motrin) 600 mg PO Q6H [facility] Last Admin: 05/13/16 05:24 Dose: Not Given Inulin (Fiber Choice) 4.5 gm PO BID [facility] Last Admin: 05/16/16 09:03 Dose: Not Given Iohexol (Omnipaque-300) 50 ml PO .ASDIRECTED [facility] Last Admin: 05/10/16 03:46 Dose: 50 ml Iohexol (Omnipaque-300) 10 ml PO . DIRECTED PRN PRN Reason: RADIOLOGY EXAM Stop: 05/20/16 08:30 Last Admin: 05/19/16 07:44 Dose: 10 ml Iopamidol (Isovue-300 (61%)) 100 ml IV . DIRECTED [facility] Last Admin: 05/13/16 19:22 Dose: 90 ml Iopamidol (Isovue-300 (61%)) 90 ml IV . DIRECTED PRN PRN Reason: RADIOLOGY EXAM Stop: 05/19/16 08:30 Last Admin: 05/19/16 07:44 Dose: 90 ml Ketamine HCl (Ketalar) 30 mg IV ASDIRECTED [facility] Stop: 05/09/16 11:00 Ketamine HCl (Ketalar) 30 mg IV .STK-MED ONE Stop: 05/09/16 09:46 Ketamine HCl (Ketalar) Confirm Administered Dose 500 mg .ROUTE .STK-MED ONE Stop: 05/14/16 08:51 Lactobacillus Rhamnosus (Culturelle) 2 cap PO BID [facility] Last Admin: 05/16/16 09:04 Dose: Not Given Lidocaine/Epinephrine (Xylocaine 1% With Epinephrine 1:100,000) Confirm Administered Dose 50 ml .ROUTE .STK-MED ONE Stop: 05/11/16 06:49 Last Admin: 05/11/16 09:09 Dose: 32 ml Lidocaine/Epinephrine (Xylocaine 1% With Epinephrine 1:100,000) Confirm Administered Dose 50 ml .ROUTE .STK-MED ONE Stop: 05/17/16 06:47 Last Admin: 05/17/16 08:07 Dose: 20 ml Lidocaine/Epinephrine (Xylocaine 1% With Epinephrine 1:100,000) Confirm Administered Dose 50 ml .ROUTE .STK-MED ONE Stop: 05/21/16 06:21 Last Admin: 05/21/16 08:48 Dose: 10 ml Meperidine HCl (Demerol) 50 mg IM ASDIRECTED PRN PRN Reason: PAIN Stop: 05/10/16 14:45 Meropenem (Merrem) Confirm Administered Dose 500 mg .ROUTE .STK-MED ONE Stop: 05/09/16 08:14 Last Admin: 05/09/16 10:24 Dose: 500 mg Meropenem (Merrem) Confirm Administered Dose 500 mg .ROUTE .STK-MED ONE Stop: 05/11/16 06:49 Last Admin: 05/11/16 09:10 Dose: 500 mg Meropenem (Merrem) Confirm Administered Dose 500 mg .ROUTE .ST-MED ONE Stop: 05/14/16 07:31 Last Admin: 05/14/16 10:19 Dose: 500 mg Meropenem (Merrem) Confirm Administered Dose 500 mg .ROUTE .ST-MED ONE Stop: 05/14/16 10:03 Last Admin: 05/14/16 10:19 Dose: 500 mg Meropenem (Merrem) Confirm Administered Dose 500 mg .ROUTE .[facility]-MED ONE Stop: 05/17/16 06:46 Last Admin: 05/17/16 08:12 Dose: 500 mg Meropenem (Merrem) Confirm Administered Dose 500 mg .ROUTE .[facility]-MED ONE Stop: 05/19/16 12:10 Last Admin: 05/19/16 13:30 Dose: 500 mg Meropenem (Merrem) Confirm Administered Dose 500 mg .ROUTE .[facility]-MED ONE Stop: 05/19/16 13:31 Last Admin: 05/19/16 14:25 Dose: 500 mg Meropenem (Merrem) Confirm Administered Dose 500 mg .ROUTE .[facility]-MED ONE Stop: 05/21/16 06:20 Last Admin: 05/21/16 08:51 Dose: 500 mg Metoclopramide HCl (Reglan) 10 mg IV Q6H [facility] Last Admin: 05/14/16 08:03 Dose: 10 mg Midazolam HCl (Versed 1 Mg/Ml) Confirm Administered Dose 2 mg .ROUTE .ST-MED ONE Stop: 05/14/16 07:44 Midazolam HCl (Versed 1 Mg/Ml) Confirm Administered Dose 2 mg .ROUTE .ST-MED ONE Stop: 05/17/16 07:22 Midazolam HCl (Versed 1 Mg/Ml) Confirm Administered Dose 2 mg .ROUTE .ST-MED ONE Stop: 05/19/16 12:13 Midazolam HCl (Versed 1 Mg/Ml) Confirm Administered Dose 2 mg .ROUTE .ST-MED ONE Stop: 05/21/16 08:19 Naloxone HCl (Narcan) 0.4 mg IV ASDIRECTED PRN PRN Reason: ITCHING Neostigmine Methylsulfate (Neostigmine) Confirm Administered Dose 5 mg .ROUTE .ST-MED ONE Stop: 05/09/16 08:37 Neostigmine Methylsulfate (Neostigmine) Confirm Administered Dose 5 mg .ROUTE .STK-MED ONE Stop: 05/14/16 07:44 Neostigmine Methylsulfate (Neostigmine) Confirm Administered Dose 5 mg .ROUTE .STK-MED ONE Stop: 05/19/16 12:14 Scopolamine Patch (Check) 1 each TOP DAILY [facility] Last Admin: 05/16/16 09:03 Dose: Not Given Check Fentanyl Patch (Daily) 1 each TOP DAILY [facility] Last Admin: 05/15/16 09:06 Dose: Not Given Non-Formulary Medication (Total Parenteral Nutrition, Central) 1,000 ml .XX .Continue Order [facility] Stop: 05/24/16 16:00 Non-Formulary Medication (Total Parenteral Nutrition, Central) 1,000 ml .XX .Continue Order [facility] Stop: 05/25/16 16:00 Non-Formulary Medication (Total Parenteral Nutrition, Central) 1,000 ml .XX .Continue Order [facility] Stop: 05/26/16 16:00 Non-Formulary Medication (Total Parenteral Nutrition, Central) 1,000 ml .XX .Continue Order [facility] Stop: 05/27/16 14:00 Ondansetron HCl (Zofran) Confirm Administered Dose 4 mg .ROUTE .STK-MED ONE Stop: 05/09/16 08:37 Ondansetron HCl (Zofran) Confirm Administered Dose 4 mg .ROUTE .STK-MED ONE Stop: 05/14/16 07:44 Ondansetron HCl (Zofran) Confirm Administered Dose 4 mg .ROUTE .STK-MED ONE Stop: 05/19/16 12:14 Pantoprazole Sodium (Protonix Iv) 40 mg IVPUSH Q24H [facility] Last Admin: 05/11/16 16:53 Dose: 40 mg Pantoprazole Sodium (Protonix) 40 mg PO Q24H [facility] Last Admin: 05/13/16 16:59 Dose: 40 mg Pantoprazole Sodium (Protonix Iv) 40 mg IV Q24H [facility] Last Admin: 05/26/16 15:51 Dose: 40 mg Phenylephrine HCl (Yan-Synephrine) Confirm Administered Dose 10 mg .ROUTE .STK- MED ONE Stop: 05/14/16 09:27 Propofol (Diprivan 20 Ml) Confirm Administered Dose 200 mg .ROUTE .STK-MED ONE Stop: 05/09/16 08:37 Propofol (Diprivan 20 Ml) Confirm Administered Dose 200 mg .ROUTE .STK-MED ONE Stop: 05/11/16 07:00 Propofol (Diprivan 20 Ml) Confirm Administered Dose 200 mg .ROUTE .STK-MED ONE Stop: 05/14/16 07:44 Propofol (Diprivan 20 Ml) Confirm Administered Dose 200 mg .ROUTE .STK-MED ONE Stop: 05/17/16 07:22 Propofol (Diprivan 20 Ml) Confirm Administered Dose 200 mg .ROUTE .STK-MED ONE Stop: 05/19/16 12:14 Propofol (Diprivan 20 Ml) Confirm Administered Dose 200 mg .ROUTE .STK-MED ONE Stop: 05/21/16 08:19 Rocuronium [place] (Zemuron) Confirm Administered Dose 100 mg .ROUTE .ST-MED ONE Stop: 05/09/16 08:37 Rocuronium [place] (Zemuron) Confirm Administered Dose 50 mg .ROUTE .ST-MED ONE Stop: 05/14/16 07:44 Rocuronium [place] (Zemuron) Confirm Administered Dose 50 mg .ROUTE .ST-MED ONE Stop: 05/19/16 12:14 Scopolamine (Transderm-Scop) 1.5 mg TOP Q72H [facility] Stop: 05/12/16 06:00 Last Admin: 05/09/16 07:53 Dose: 1.5 mg Scopolamine (Transderm-Scop) Confirm Administered Dose 1.5 mg .ROUTE .STK-MED ONE Stop: 05/09/16 08:37 Scopolamine (Transderm-Scop) 1.5 mg TOP ASDIRECTED [facility] Stop: 05/12/16 16:00 Scopolamine (Transderm-Scop) 1.5 mg TOP Q72H [facility] Last Admin: 05/12/16 09:17 Dose: 1.5 mg Sodium Chloride (Saline Flush) 10 ml FLUSH ONETIME ONE Stop: 05/13/16 18:10 Last Admin: 05/13/16 19:22 Dose: 10 ml Succinylcholine Chloride (Succinylcholine In Ns Pf) Confirm Administered Dose 200 mg .ROUTE .STK-MED ONE Stop: 05/09/16 08:37 Succinylcholine Chloride (Succinylcholine In Ns Pf) Confirm Administered Dose 200 mg .ROUTE .STK-MED ONE Stop: 05/14/16 07:44 Succinylcholine Chloride (Succinylcholine In Ns Pf) Confirm Administered Dose 200 mg .ROUTE .STK-MED ONE Stop: 05/19/16 12:14 Vancomycin HCl (Vancomycin) 1 gm IV .PHARMACY TO DOSE SARAHY - Exam Quality Assessment: No: supplemental oxygen General: alert, oriented, cooperative, no acute distress Neck: supple Lungs: Normal respiratory effort Cardiovascular: Regular Rate, Regular Rhythm Abdomen: no distension Extremities: no edema Skin: warm, dry Psy/Mental Status: alert, normal affect Consult PN Assessment/Plan Procedures: Procedures ASSAY OF LACTIC ACID (03/04/16) ASSAY OF MAGNESIUM (04/07/16) ASSAY OF PHOSPHORUS (04/07/16) ASSAY THYROID STIM HORMONE (10/08/15) BLOOD TYPING SEROLOGIC ABO (04/14/15) BLOOD TYPING SEROLOGIC RH(D) (04/14/15) C-REACTIVE PROTEIN (04/07/16) COMPLETE CBC AUTOMATED (04/07/16) COMPLETE CBC W/AUTO DIFF WBC (04/07/16) COMPREHEN METABOLIC PANEL (04/07/16) CT ABD & PELV W/CONTRAST (03/04/16) CULTURE SCREEN ONLY (11/10/15) ELECTROCARDIOGRAM TRACING (04/14/15) EMERGENCY DEPT VISIT (04/07/16) HYDRATE IV INFUSION ADD-ON (04/07/16) MEASURE BLOOD OXYGEN LEVEL (01/01/16) METABOLIC PANEL TOTAL CA (03/04/16) PT EVALUATION (11/10/15) RBC ANTIBODY SCREEN (04/14/15) ROUTINE VENIPUNCTURE (04/07/16) SPECIAL STAINS GROUP 2 (04/14/15) THER/PROPH/DIAG INJ IV PUSH (04/07/16) THER/PROPH/DIAG IV INF ADDON (03/04/16) THER/PROPH/DIAG IV INF INIT (03/04/16) THERAPEUTIC ACTIVITIES (11/10/15) TISSUE EXAM BY PATHOLOGIST (01/01/16) TISSUE EXAM BY PATHOLOGIST (01/01/16) TISSUE EXAM BY PATHOLOGIST (04/14/15) TISSUE EXAM BY PATHOLOGIST (04/14/15) TX/PRO/DX INJ NEW DRUG ADDON (04/07/16) URINALYSIS AUTO W/SCOPE (04/07/16) X-RAY EXAM OF ABDOMEN (04/07/16) X-RAY EXAM SERIES ABDOMEN (04/07/16) X-RAY UPPER GI DELAY W/O KUB (03/04/16) X-RAY UPPER GI&SMALL INTEST (04/07/16) (1) Elevated bilirubin SNOMED Code(s): 648825620 Code(s): R17 - UNSPECIFIED JAUNDICE Current Visit: Yes Problem List Initiated/Reviewed/Updated: Yes My Orders last 24 hours: My Active Orders 05/26/16 21:00 Ciprofloxacin in D5W [Cipro in D5W 400 MG/200 ML] 400 mg Premix Bag 1 bag IV Q12H 05/27/16 22:00 Ampicillin 2 gm Sodium Chloride 0.9% [Normal Saline] 100 ml IV Q6H Plan: Assessment and Plan - Abdominal abscess with peritonitis secondary to JJ leak - status post exploratory laparotomy 3 and again last week because of splenic abscess. 3 different organisms cultured from the abscess material. All sensitivities have returned and antibiotics will be adjusted. Clinically improving. Not having any fevers and white count has normalized. Pain adequately controlled at this time. -continue ciprofloxacin -Stop vancomycin, start ampicillin -additional postop cares per surgical team -Continue nutritional support with TPN, try to wean as able to improve appetite -Continue oral pain medications Hypoxia - small pleural effusions noted a few days ago. Her oxygenation has been improving and she is only intermittently hypoxic at night. -Monitor urine output -Wean oxygen as able Eduard Bedolla M.D.
[2016-05-27] MEDS: Pantoprazole 40 MG Tab.CR PO SCH (16:03)
[2016-05-27] MEDS: Ampicillin 2 GM in Sodium Chloride 0.9% 100 ML IV SCH (21:57)
[2016-05-27] MEDS: HYDROmorphone 0.5 MG/0.5 ML Syringe IVPUSH PRN (22:38)
[2016-05-27] MEDS ORDERED: Acetaminophen 1,000 MG in Premix Bag 1 BAG IV ONE (23:42)
[2016-05-28] MEDS: Ampicillin 2 GM in Sodium Chloride 0.9% 100 ML IV SCH ×2 (03:52→09:59)
[2016-05-28] MEDS: HYDROmorphone 2 MG Tab PO PRN ×5 (03:57→20:14)
[2016-05-28] MEDS: Ondansetron 4 MG/2 ML SDV IVPUSH PRN ×4 (04:07→20:14)
[2016-05-28] MEDS ORDERED: Sodium Chloride 0.9% 10 ML Syringe FLUSH PRN (05:41)
[2016-05-28] MEDS ORDERED: Iopamidol 612 MG/ML 100 ML Bottle IV PRN (05:41)
[2016-05-28] MEDS: Acetaminophen 325 MG Tab PO PRN (06:46)
[2016-05-28] MEDS ORDERED: Central Total Parenteral Nutrition Bag SCH (08:30)
[2016-05-28] MEDS: 1: AA 5%/Calcium/D15W/Lytes 1,000 ML with MVI, Adult with Vitamin K 10 ML, Chromium/Copp IV SCH ×6 (09:38→22:22)
[2016-05-28] MEDS: Acetaminophen 1,000 MG in Premix Bag 1 BAG IV SCH ×3 (09:54→21:59)
--- NOTE | 2016-05-28 09:59 | PN ---
DATE OF SERVICE: 05/28/2016 SUBJECTIVE: Carolyn developed pain in her right upper lateral quadrant. It was between 6 and 10. She was getting oral Tylenol and Dilaudid. When nursing staff called, her pain was at 10, and she was ordered IV Tylenol. Carolyn is not sure if her pain got out of hand or if something else is going on. She did have a CT scan earlier this a.m. reviewed by Dr. Schmitt also and shows really no change and with some improvement. She reports the pain on her right side about 3 to 4 inches mid abdomen. It is an aching, stabbing pain. Because of the pain, she was only able to walk once in the evening shift last night. Her temp-max was 98.2. She is having bowel movements. C. difficile was checked; it was negative. Drains are intact. A has put out 70 mL of a serosanguineous drainage. LACIE-B drop of a brown drainage. LACIE-C, 15 mL serosanguineous. LACIE-D 22 mL serosanguineous. LACIE-E drops of a serosanguineous. LACIE-F drops of a serosanguineous. LACIE-G, 17 of a reyes colored. LACIE-H, 12 mL of a serosanguineous. LACIE-I, 5 mL of a serosanguineous. [place] 20 mL of a serosanguineous. Arthur are intact. Midline incision. Delayed primary closure was on 05/17, and the delayed primary closure for her last surgery was 05/21. They both are intact and probably need to be left in a few more days as far as the midline incision. She cannot tolerate her SCDs. She thinks they are too tight. Concern is with her recent stroke that she have SCDs or LIANA stockings on to prevent any type of DVT. She would rather have LIANA hose on. White count, this morning was 11.8, hemoglobin was 10, potassium 4, magnesium 2.1. Her albumin 2.7, globulin 4.2. Radiologist who read the CT scan, there was some air in the bladder, and he did recommend UA, and this will be ordered today. OBJECTIVE: GENERAL: Carolyn is a 55-year-old female. She is sitting up in the chair. VITAL SIGNS: TPR is 98.9, 88, 18, blood pressure 120/75. HEENT: Negative. NECK: Supple. HEART: Regular rate and rhythm. LUNGS: Clear. ABDOMEN: There is tenderness noted to 3 to 4 inches in the mid abdomen, lateral to where the umbilicus would be and almost extends to the rib. It is soft. There is no infection noted around the LACIE drains. Her midline incision looks good as well as the left upper quadrant. Abdominal binder has been on. EXTREMITIES: Without peripheral edema. ASSESSMENT: 1. Exploratory laparotomy, total abdominal colectomy with ileal rectal anastomosis, revision of small bowel, component of the [place], gastric bypass, embolectomy ablation of focal area pelvic endometriosis with pelvic sidewall and placement of Interceed mesh to displace small bowel from pelvic and abdominal wall to limit recurrent adhesive formation on 05/09/2016. 2. Delayed primary closure 05/11/2016. 3. Insertion of left subclavian triple lumen, drainage of intraabdominal abscess, irrigation of diffuse peritonitis, small-bowel resection, separate jejunostomy to re- establish [place] small bowel anatomy for leak of the jejunostomy, focal abscess in the left upper quadrant, diffuse peritonitis involving lower 2/3 of the abdomen and pelvis, and limited pelvis anus abscess on 05/14/2016. 4. Delayed primary closure on 05/17/2016. 5. 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 6. Delayed primary closure 05/21/2016. PLAN: 1. Rx Tylenol IV 1000 mg q.6 hours scheduled x24 hours. This is medically necessary because of the patient's pain under control, and it seems to be the only thing that is working, so she can walk and keep her physical activity up in order to avoid any postop complications. 2. LIANA stockings, knee high. She refuses SCDs. 3. Check CBC, CMP, mag, phos. 4. Continue same TPN rate and content. 5. Check CBC, CMP, and Mag phos in a.m. 6. Home health care consult to check into the home health care, what is available to her as well as if she would be able to go home with TPN if she needed to be. Also Carolyn reports that she will lose her social security payments if she remains in the hospital past 06/11. Good pulmonary toilet encouraged. 7. We will evaluate p.r.n. or in a.mMars Pedro PA-C /[id number]
[2016-05-28] MEDS: Ciprofloxacin in D5W 400 MG in Premix Bag 1 BAG IV SCH ×2 (10:24)
[2016-05-28] MEDS: Bisacodyl 10 MG Supp RECTAL SCH ×2 (10:25→20:06)
[2016-05-28] MEDS: Lactobacillus Rhamnosus GG (Probiotic) Cap PO SCH ×2 (10:25→20:14)
[2016-05-28] MEDS: Lubiprostone 24 MCG Cap PO SCH ×2 (10:26→16:22)
[2016-05-28] MEDS: Piperacillin/Tazobactam/Dext 3.375 GM in Premix Bag 1 BAG IV SCH ×3 (12:09→22:22)
--- NOTE | 2016-05-28 13:45 | PCM.CONSN ---
- General Info Date of Service: 05/28/16 Functional Status: Reports: pain controlled, tolerating diet, ambulating - Review of Systems General: Reports: Weakness. Denies: Fever Gastrointestinal: Reports: Abdominal pain Systems Review Comment:: No acute events overnight though she did have an increase in her abdominal pain especially on the right side in the right upper quadrant. She has not had any fevers. She does not have much of an appetite but has been able to get down a small quantity of food. Her bowels have been moving. She's not sleeping well because of the pain. No difficulty with urination. No vomiting. - Patient Data Vitals - most recent: Last Vital Signs Temp 36.6 C 05/28/16 11:00 Pulse 82 05/28/16 07:04 Resp 18 05/28/16 11:00 BP 117/68 05/28/16 11:00 Pulse Ox 97 05/28/16 11:00 Weight - most recent: 60.781 kg I&O - last 24 hours: Intake & Output 05/27/16 05/28/16 05/28/16 22:59 06:59 14:59 Intake Total 1720 1262 Output Total 1220 966 850 Balance 500 296 -850 Lab Results last 24 hrs: Laboratory Results - last 24 hr 05/28/16 05/28/16 05/28/16 Range/Units 04:32 04:32 12:20 WBC 11.8 H (4.5-11.0) K/uL RBC 3.55 (3.30-5.50) M/uL Hgb 10.0 L (12.0-15.0) g/dL Hct 30.3 L (36.0-48.0) % MCV 85 (80-98) fL MCH 28 (27-31) pg MCHC 33 (32-36) % Plt Count 792 H (150-400) K/uL Sodium 141 (140-148) mmol/L Potassium 4.0 (3.6-5.2) mmol/L Chloride 107 (100-108) mmol/L Carbon Dioxide 24 (21-32) mmol/L Anion Gap 10.1 (5.0-14.0) mmol/L BUN 19 H (7-18) mg/dL Creatinine 0.5 L (0.6-1.0) mg/dL Est Cr Clr Drug Dosing 119.11 mL/min Estimated GFR (MDRD) > 60 (>60) Glucose 105 (74-106) mg/dL Calcium 8.7 (8.5-10.1) mg/dL Phosphorus 4.2 (2.5-4.9) mg/dL Magnesium 2.1 (1.8-2.4) mg/dL Total Bilirubin 0.3 (0.2-1.0) mg/dL AST 20 (15-37) U/L ALT 40 (12-78) U/L Alkaline Phosphatase 91 (46-116) U/L Total Protein 6.9 (6.4-8.2) g/dL Albumin 2.7 L (3.4-5.0) g/dL Globulin 4.2 H (2.3-3.5) g/dL Albumin/Globulin Ratio 0.6 L (1.2-2.2) Urine Color Yellow Urine Appearance Clear Urine pH 6.5 (4.5-8.0) Ur Specific [place] 1.015 (1.008-1.030) Urine Protein Negative (NEGATIVE) mg/dL Urine Glucose (UA) Normal (NEGATIVE) mg/dL Urine Ketones Negative (NEGATIVE) mg/dL Urine Occult Blood Negative (NEGATIVE) Urine Nitrite Negative (NEGATIVE) Urine Bilirubin Negative (NEGATIVE) Urine Urobilinogen Normal (NORMAL) mg/dL Ur Leukocyte Esterase Negative (NEGATIVE) Urine RBC 0-5 (0-5) Urine WBC 0-5 (0-5) Ur Epithelial Cells Few Amorphous Sediment Few Urine Bacteria Rare Urine Mucus Few Dereje Results last 24 hrs: Microbiology 05/19/16 14:17 Specimen Source - Final Specimen Type Unknown Bacterial Sensitivity - Final Enterococcus Specimen Comment (DEREJE) - Final Med Orders - Current: Current Medications Acetaminophen (Tylenol) 650 mg RECTAL Q4H PRN PRN Reason: Fever Last Admin: 05/18/16 05:53 Dose: 650 mg Acetaminophen (Tylenol) 650 mg PO Q4H PRN PRN Reason: Pain/Fever Last Admin: 05/28/16 06:46 Dose: 650 mg Bacitracin (Bacitracin Oint 1 Gm) 1 dose TOP BID PRN PRN Reason: burn Last Admin: 05/12/16 20:31 Dose: 2 dose Bisacodyl (Dulcolax) 10 mg RECTAL BID SARAHY Last Admin: 05/28/16 10:25 Dose: Not Given Dimethicone/Zinc Oxide (Rash Relief-Zinc Oxide Kamuela) 1 gm TOP ASDIRECTED PRN PRN Reason: Other Last Admin: 05/12/16 20:30 Dose: 1 bot Diphenhydramine HCl (Benadryl) 25 - 50 mg IVPUSH Q4H PRN PRN Reason: ITCHING Heparin Sodium (Porcine) (Heparin Lock Flush 100 Units/Ml Syringe) 500 units IVPUSH ASDIRECTED PRN PRN Reason: AIDS NURSE Last Admin: 05/26/16 15:51 Dose: 500 units Hydromorphone HCl (Dilaudid) 0.5 mg IVPUSH Q2H PRN PRN Reason: Pain (severe 7-10) Last Admin: 05/27/16 22:38 Dose: 0.5 mg Hydromorphone HCl (Dilaudid) 2 - 4 mg PO Q4H PRN PRN Reason: Pain Last Admin: 05/28/16 12:15 Dose: 4 mg Lactated Ringer's (Ringers, Lactated) 1,000 mls @ 0 mls/hr IV ASDIRECTED SARAHY PRN Reason: KVO Last Admin: 05/27/16 12:00 Dose: 20 mls/hr Multivitamins/Minerals 10 ml/Chromium/Copper/Manganese/Seleni/Zn 1 ml/ Amino Ac/ Electrol/Dextrose/Calcium 1,011 mls @ 82 mls/hr IV .BY DURATION [facility] Stop: 05/28/16 18:00 Last Admin: 05/27/16 19:46 Dose: 82 mls/hr Amino Ac/Electrol/Dextrose/Calcium (Clinimix E 15) 1,000 mls @ 82 mls/hr IV .BY DURATION [facility] Stop: 05/28/16 18:00 Last Admin: 05/28/16 09:38 Dose: 82 mls/hr Acetaminophen 1,000 mg/ Premix 100 mls @ 400 mls/hr IV Q6H [facility] Stop: 05/29/16 04:14 Last Admin: 05/28/16 09:54 Dose: 400 mls/hr Multivitamins/Minerals 10 ml/Chromium/Copper/Manganese/Seleni/Zn 1 ml/ Amino Ac/ Electrol/Dextrose/Calcium 1,011 mls @ 82 mls/hr IV .BY DURATION [facility] Amino Ac/Electrol/Dextrose/Calcium (Clinimix E 07/25) 1,000 mls @ 82 mls/hr IV .BY DURATION [facility] Piperacillin/Tazobactam/ (Dextrose 3.375 gm/ Premix) 50 mls @ 100 mls/hr IV Q6H [facility] Last Admin: 05/28/16 12:09 Dose: 100 mls/hr Lactobacillus Rhamnosus (Culturelle) 2 cap PO BID [facility] Last Admin: 05/28/16 10:25 Dose: 2 cap Lubiprostone (Amitiza) 24 mcg PO BIDMEALS [facility] Last Admin: 05/28/16 10:26 Dose: 24 mcg Naloxone HCl (Narcan) 0.1 mg IV ASDIRECTED PRN PRN Reason: decreased respiratory rate Non-Formulary Medication (Total Parenteral Nutrition, Central) 1,000 ml .XX .Continue Order [facility] Stop: 05/28/16 14:00 Ondansetron HCl (Zofran) 4 mg IVPUSH Q4H PRN PRN Reason: Nausea/Vomiting Last Admin: 05/28/16 12:14 Dose: 4 mg Pantoprazole Sodium (Protonix) 40 mg PO Q24H [facility] Last Admin: 05/27/16 16:03 Dose: 40 mg Senna/Docusate Sodium (Senna Plus) 1 tab PO BID [facility] Last Admin: 05/28/16 10:25 Dose: Not Given Discontinued Medications Acetaminophen (Tylenol) 650 mg PO Q6H [facility] Last Admin: 05/16/16 09:03 Dose: Not Given Albuterol/Ipratropium (Duoneb 3.0-0.5 Mg/3 Ml) 3 ml NEB ONETIME STA Stop: 05/13/16 19:09 Last Admin: 05/13/16 19:21 Dose: 3 ml Alvimopan (Entereg) 12 mg PO ONETIME ONE Stop: 05/09/16 08:31 Last Admin: 05/09/16 08:30 Dose: 12 mg Alvimopan (Entereg) 12 mg PO Q12H [facility] Stop: 05/16/16 09:01 Last Admin: 05/10/16 09:04 Dose: 12 mg Bisacodyl (Dulcolax) 10 mg PO BID [facility] Last Admin: 05/11/16 09:52 Dose: Not Given Bupivacaine HCl (Marcaine 0.5%) Confirm Administered Dose 50 ml .ROUTE .STK-MED ONE Stop: 05/11/16 06:49 Last Admin: 05/11/16 09:09 Dose: 32 ml Bupivacaine HCl (Marcaine 0.5%) Confirm Administered Dose 50 ml .ROUTE .STK-MED ONE Stop: 05/17/16 06:47 Last Admin: 05/17/16 08:07 Dose: 20 ml Bupivacaine HCl (Marcaine 0.5%) Confirm Administered Dose 50 ml .ROUTE .STK-MED ONE Stop: 05/19/16 14:06 Bupivacaine HCl (Marcaine 0.5%) Confirm Administered Dose 50 ml .ROUTE .STK-MED ONE Stop: 05/21/16 06:21 Last Admin: 05/21/16 08:48 Dose: 10 ml Bupivacaine HCl/Epinephrine Bitart (Marcaine 0.5%/Epinephrine 1:200,000) Confirm Administered Dose 50 ml .ROUTE .STK-MED ONE Stop: 05/19/16 14:06 Last Admin: 05/19/16 14:10 Dose: 25 ml Cefoxitin Sodium (Mefoxin) Confirm Administered Dose 2 gm .ROUTE .STK-MED ONE Stop: 05/09/16 06:55 Neomycin/Polymyxin 1 ml/ (Sodium Chloride 750 ml) 0 ml .XX ONETIME ONE Stop: 05/09/16 09:16 Last Admin: 05/09/16 13:25 Dose: Not Given Cyanocobalamin (Vitamin B12) 1,000 mcg IM ONETIME ONE Stop: 05/11/16 09:01 Last Admin: 05/11/16 09:53 Dose: 1,000 mcg Cyclobenzaprine HCl (Flexeril) 10 mg PO Q6H PRN PRN Reason: Muscle Spasm Last Admin: 05/13/16 06:22 Dose: 10 mg Dexamethasone (Dexamethasone) Confirm Administered Dose 4 mg .ROUTE .STK-MED ONE Stop: 05/09/16 08:37 Dexamethasone (Dexamethasone) Confirm Administered Dose 4 mg .ROUTE .STK-MED ONE Stop: 05/14/16 07:44 Dexamethasone (Dexamethasone) Confirm Administered Dose 4 mg .ROUTE .STK-MED ONE Stop: 05/19/16 12:14 Diatrizoate Meglum/Diatrizoate Sod (Gastrografin 37%) 30 ml PO . DIRECTED [facility] Stop: 05/13/16 19:46 Last Admin: 05/13/16 19:33 Dose: 30 mg Diphenhydramine HCl (Benadryl) 25 mg IVPUSH Q6H PRN PRN Reason: ITCHING Diphenoxylate HCl/Atropine (Lomotil 0.025-2.5 Mg) 1 tab PO ONETIME ONE Stop: 05/12/16 10:36 Last Admin: 05/12/16 10:55 Dose: 1 tab Diphenoxylate HCl/Atropine (Lomotil 0.025-2.5 Mg) 1 tab PO Q6H PRN PRN Reason: Diarrhea Edrophonium Chloride (Enlon) Confirm Administered Dose 150 mg .ROUTE .STK-MED ONE Stop: 05/14/16 10:59 Edrophonium Chloride (Enlon) Confirm Administered Dose 150 mg .ROUTE .STK-MED ONE Stop: 05/19/16 14:23 Fentanyl (Sublimaze) Confirm Administered Dose 500 mcg .ROUTE .STK-MED ONE Stop: 05/09/16 08:37 Fentanyl (Sublimaze) Confirm Administered Dose 100 mcg .ROUTE .STK-MED ONE Stop: 05/09/16 08:39 Fentanyl (Duragesic) 12 mcg TRDERM Q72H [facility] Last Admin: 05/13/16 13:15 Dose: Not Given Fentanyl (Sublimaze) Confirm Administered Dose 250 mcg .ROUTE .STK-MED ONE Stop: 05/14/16 07:44 Fentanyl (Duragesic) 25 mcg TRDERM Q72H [facility] Last Admin: 05/14/16 16:58 Dose: Not Given Fentanyl (Sublimaze) Confirm Administered Dose 100 mcg .ROUTE .STK-MED ONE Stop: 05/17/16 07:22 Fentanyl (Sublimaze) Confirm Administered Dose 250 mcg .ROUTE .STK-MED ONE Stop: 05/19/16 12:13 Fentanyl (Sublimaze) Confirm Administered Dose 100 mcg .ROUTE .STK-MED ONE Stop: 05/21/16 08:19 Furosemide (Lasix) 20 mg IVPUSH ONETIME ONE Stop: 05/13/16 18:01 Last Admin: 05/13/16 18:21 Dose: 20 mg Gabapentin (Neurontin) 300 mg PO ONETIME ONE Stop: 05/09/16 08:16 Last Admin: 05/09/16 07:53 Dose: 300 mg Gabapentin (Neurontin) 300 mg PO TID [facility] Last Admin: 05/12/16 21:54 Dose: 300 mg Glycopyrrolate () Confirm Administered Dose 1 mg .ROUTE .STK-MED ONE Stop: 05/09/16 08:37 Glycopyrrolate () Confirm Administered Dose 1 mg .ROUTE .STK-MED ONE Stop: 05/14/16 07:44 Glycopyrrolate () Confirm Administered Dose 1 mg .ROUTE .STK-MED ONE Stop: 05/19/16 12:14 Heparin Sodium (Porcine) (Heparin Sodium) 5,000 units SUBCUT Q12H [facility] Stop: 05/10/16 20:00 Last Admin: 05/10/16 06:23 Dose: 5,000 units Heparin Sodium (Porcine) (Heparin Sodium) 5,000 units SUBCUT Q12H [facility] Heparin Sodium (Porcine) (Heparin Sodium) 5,000 units SUBCUT ONETIME ONE Stop: 05/10/16 17:01 Last Admin: 05/10/16 16:45 Dose: 5,000 units Heparin Sodium (Porcine) (Heparin Lock Flush 100 Units/Ml Syringe) 500 units FLUSH .STK-MED ONE Stop: 05/14/16 10:20 Last Admin: 05/14/16 10:19 Dose: 500 units Heparin Sodium (Porcine) (Heparin Lock Flush 100 Units/Ml Syringe) Confirm Administered Dose 500 units .ROUTE .STK-MED ONE Stop: 05/15/16 17:28 Last Admin: 05/15/16 19:22 Dose: Not Given Heparin Sodium (Porcine) (Heparin Lock Flush 100 Units/Ml Syringe) Confirm Administered Dose 500 units .ROUTE .STK-MED ONE Stop: 05/19/16 21:35 Last Admin: 05/19/16 21:50 Dose: 500 units Hydromorphone HCl (Dilaudid) 2 - 4 mg PO Q4H PRN PRN Reason: PAIN Last Admin: 05/14/16 02:12 Dose: 4 mg Hydromorphone HCl (Dilaudid Land Inspector 15 Mg In Ns 30 Ml) 0 mg IV ASDIRECTED PRN; Protocol 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: SEO 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 Last Admin: 05/26/16 10:24 Dose: 15 mg Hydromorphone HCl (Dilaudid) 2 mg PO Q3H PRN PRN Reason: Pain (moderate 4-6) Last Admin: 05/26/16 19:10 Dose: 2 mg Hydroxyzine HCl (Vistaril) 75 - 100 mg IM Q4H PRN PRN Reason: PAIN NOT CONTROLLED BY SEO PROFESSIONAL Last Admin: 05/13/16 02:48 Dose: 100 mg Hydroxyzine HCl (Vistaril) 100 mg IM Q4H PRN PRN Reason: PAIN NOT CONTROLLED BY SEO PROFESSIONAL Last Admin: 05/21/16 10:40 Dose: 100 mg Dextrose/Lactated Ringer's (Dextrose 5%-Lactated Ringers) 1,000 mls @ 100 mls/ hr IV ASDIRECTED SARAHY Last Admin: 05/09/16 07:55 Dose: 100 mls/hr Cefoxitin Sodium 2 gm/ Sodium (Chloride) 50 mls @ 100 mls/hr IV ONETIME ONE Stop: 05/09/16 09:44 Last Admin: 05/09/16 09:08 Dose: 100 mls/hr Fentanyl 2,500 mcg/ Sodium (Chloride) 250 mls @ 0 mls/hr EPIDUR TITRATE SARAHY; Titrate PRN Reason: Protocol Last Admin: 05/10/16 09:12 Dose: 10 ml/hr, 10 mls/hr Ketamine HCl 100 mg/ Sodium (Chloride) 100 mls @ 18 mls/hr IV ASDIRECTED [facility] Stop: 05/09/16 13:00 Lactated Ringer's (Ringers, Lactated) Confirm Administered Dose 1,000 mls @ as directed .ROUTE .STK-MED ONE Stop: 05/09/16 08:37 Sodium Chloride (Normal Saline) Confirm Administered Dose 10 mls @ as directed .ROUTE .STK-MED ONE Stop: 05/09/16 08:39 Lidocaine HCl (Xylocaine-Mpf 1%) Confirm Administered Dose 2 mls @ as directed .ROUTE .STK-MED ONE Stop: 05/09/16 09:24 Lactated Ringer's (Ringers, Lactated) Confirm Administered Dose 1,000 mls @ as directed .ROUTE .STK-MED ONE Stop: 05/09/16 11:10 Lactated Ringer's (Ringers, Lactated) 500 mls @ 500 mls/hr IV .BOLUS ONE Stop: 05/09/16 14:59 Last Admin: 02/27/17 14:03 Dose: 500 mls/hr Dextrose/Lactated Ringer's (Dextrose 5%-Lactated Ringers) 1,000 mls @ 200 mls/ hr IV ASDIRECTED [facility] Stop: 05/10/16 17:59 Last Admin: 05/10/16 15:05 Dose: 200 mls/hr Multivitamins/Minerals 10 ml/Thiamine HCl 200 mg/ Chromium/Copper/Manganese/ Seleni/Zn 1 ml/ Dextrose/Lactated Ringer's 1,013 mls @ 100 mls/hr IV DAILY@ 1600 [facility] Last Admin: 05/14/16 16:33 Dose: Not Given Cefoxitin Sodium 2 gm/ Sodium (Chloride) 50 mls @ 100 mls/hr IV Q6H [facility] Last Admin: 05/12/16 03:39 Dose: 100 mls/hr Acetaminophen 1,000 mg/ Premix 100 mls @ 400 mls/hr IV Q6H [facility] Stop: 05/10/16 04:14 Last Admin: 05/10/16 04:19 Dose: 400 mls/hr Ketamine HCl 100 mg/ Sodium (Chloride) 101 mls @ as directed IV .STK-MED ONE Stop: 05/09/16 09:46 Dextrose/Lactated Ringer's (Dextrose 5%-Lactated Ringers) 1,000 mls @ 100 [facility]ls[facility] Last Admin: 05/13/16 02:59 Dose: 100 mls/hr Magnesium Sulfate 2 gm/ Sodium (Chloride) 54 mls @ 27 mls/hr IV ONETIME ONE Stop: 05/13/16 11:59 Last Admin: 05/13/16 10:01 Dose: 27 mls/hr Magnesium Sulfate 2 gm/ Premix 50 mls @ 25 mls/hr IV Q6H [facility] Stop: 05/15/16 05:59 Last Admin: 05/16/16 09:03 Dose: Not Given Potassium Phosphate 20 mmole/ (Sodium Chloride) 256.6667 mls @ 85 mls/hr IV Q3H [facility] Stop: 05/13/16 18:59 Last Admin: 05/13/16 19:49 Dose: 85 mls/hr Dextrose/Lactated Ringer's (Dextrose 5%-Lactated Ringers) 1,000 mls @ 80 mls/ hr IV ASDIRECTED [facility] Stop: 05/14/16 14:29 Last Admin: 05/13/16 18:20 Dose: 25 mls/hr Meropenem 500 mg/ Sodium (Chloride) 50 mls @ 100 mls/hr IV ONETIME ONE Stop: 05/13/16 18:29 Last Admin: 05/13/16 18:28 Dose: 100 mls/hr Sodium Chloride (Normal Saline) 70 mls @ 3 mls/sec IV ASDIRECTED [facility] Last Admin: 05/13/16 19:22 Dose: 3 mls/sec Meropenem 500 mg/ Sodium (Chloride) 50 mls @ 100 mls/hr IV Q6H [facility] Last Admin: 05/23/16 10:20 Dose: 100 mls/hr Aztreonam 1 gm/ Sodium (Chloride) 50 mls @ 100 mls/hr IV Q8HR [facility] Last Admin: 05/14/16 05:39 Dose: 100 mls/hr Aztreonam/Dextrose 1 gm/ (Premix) 50 mls @ 100 mls/hr IV Q8H [facility] Last Admin: 05/21/16 14:02 Dose: 100 mls/hr Sodium Chloride (Normal Saline) Confirm Administered Dose 10 mls @ as directed .ROUTE .STK-MED ONE Stop: 05/14/16 08:52 Sodium Chloride (Normal Saline) Confirm Administered Dose 10 mls @ as directed .ROUTE .STK-MED ONE Stop: 05/14/16 09:28 Lactated Ringer's (Ringers, Lactated) Confirm Administered Dose 1,000 mls @ as directed .ROUTE .STK-MED ONE Stop: 05/14/16 09:34 Multivitamins/Minerals 10 ml/Chromium/Copper/Manganese/Seleni/Zn 1 ml/ Amino Ac/ Electrol/Dextrose/Calcium 1,011 mls @ 82 mls/hr IV .BY DURATION [facility] Stop: 05/16/16 10:59 Last Admin: 05/15/16 15:31 Dose: 82 mls/hr Amino Ac/Electrol/Dextrose/Calcium (Clinimix E 07/25) 1,000 mls @ 82 mls/hr IV .BY DURATION [facility] Stop: 05/16/16 10:59 Last Admin: 05/16/16 03:41 Dose: 82 mls/hr Lactated Ringer's (Ringers, Lactated) 1,000 mls @ 100 mls/hr IV ASDIRECTED [facility] Last Admin: 05/20/16 03:16 Dose: 100 mls/hr Acetaminophen 1,000 mg/ Premix 100 mls @ 400 mls/hr IV Q6H [facility] Stop: 05/15/16 10:14 Last Admin: 05/15/16 10:12 Dose: 400 mls/hr Albumin Human (Flexbumin 25%) 50 mls @ 50 mls/hr IV Q24H [facility] Stop: 05/23/16 23:00 Last Admin: 05/23/16 09:14 Dose: 50 mls/hr Albumin Human (Flexbumin 25%) 50 mls @ 50 mls/hr IV Q24H [facility] Stop: 05/23/16 23:00 Last Admin: 05/23/16 10:19 Dose: 50 mls/hr Albumin Human (Flexbumin 25%) 50 mls @ 50 mls/hr IV Q24H [facility] Stop: 05/23/16 23:00 Last Admin: 05/23/16 12:05 Dose: 50 mls/hr Albumin Human (Flexbumin 25%) 50 mls @ 50 mls/hr IV Q24H [facility] Stop: 05/23/16 23:00 Last Admin: 05/23/16 11:09 Dose: 50 mls/hr Potassium Phosphate 15 mmole/Lidocaine HCl 2 ml/ Sodium Chloride 157 mls @ 53 mls/hr IV Q3H [facility] Stop: 05/15/16 15:58 Last Admin: 05/15/16 13:04 Dose: 53 mls/hr Multivitamins/Minerals 10 ml/Chromium/Copper/Manganese/Seleni/Zn 1 ml/ Amino Ac/ Electrol/Dextrose/Calcium 1,011 mls @ 82 mls/hr IV .BY DURATION [facility] Stop: 05/23/16 14:30 Last Admin: 05/22/16 16:20 Dose: 82 mls/hr Amino Ac/Electrol/Dextrose/Calcium (Clinimix E 15) 1,000 mls @ 82 mls/hr IV .BY DURATION [facility] Stop: 05/23/16 14:30 Last Admin: 05/23/16 03:51 Dose: 82 mls/hr Potassium Phosphate 15 mmole/ (Sodium Chloride) 155 mls @ 55 mls/hr IV Q3H [facility] Stop: 05/16/16 16:50 Last Admin: 05/16/16 17:27 Dose: 55 mls/hr Levofloxacin/Dextrose 750 mg/ (Premix) 150 mls @ 100 mls/hr IV Q24H [facility] Last Admin: 05/21/16 11:17 Dose: 100 mls/hr Vancomycin HCl 1.3 gm/ Sodium (Chloride) 250 mls @ 167 mls/hr IV ONETIME ONE Stop: 05/17/16 14:29 Last Admin: 05/17/16 13:18 Dose: 167 mls/hr Vancomycin HCl 1 gm/ Sodium (Chloride) 250 mls @ 167 mls/hr IV Q12H [facility] Last Admin: 05/19/16 00:30 Dose: 167 mls/hr Sodium Chloride (Normal Saline) 70 mls @ 3 mls/sec IV ASDIRECTED [facility] Stop: 05/19/16 08:30 Lactated Ringer's (Ringers, Lactated) Confirm Administered Dose 1,000 mls @ as directed .ROUTE .STK-MED ONE Stop: 05/19/16 13:23 Sodium Chloride (Normal Saline) Confirm Administered Dose 10 mls @ as directed .ROUTE .STK-MED ONE Stop: 05/19/16 13:31 Vancomycin HCl 1 gm/ Sodium (Chloride) 250 mls @ 167 mls/hr IV Q8H [facility] Last Admin: 05/21/16 00:14 Dose: 167 mls/hr Fluconazole/Sodium Chloride (400 mg/ Premix) 200 mls @ 100 mls/hr IV Q24H [facility] Last Admin: 05/23/16 08:11 Dose: 100 mls/hr Vancomycin HCl 1.1 gm/ Sodium (Chloride) 250 mls @ 167 mls/hr IV Q8H [facility] Stop: 05/21/16 12:00 Last Admin: 05/21/16 09:50 Dose: 167 mls/hr Vancomycin HCl 1.1 gm/ Sodium (Chloride) 250 mls @ 167 mls/hr IV Q8H [facility] Last Admin: 05/22/16 09:28 Dose: 167 mls/hr Acetaminophen 1,000 mg/ Premix 100 mls @ 400 mls/hr IV Q6H PRN PRN Reason: Fever Stop: 05/22/16 21:01 Last Admin: 05/22/16 16:11 Dose: 400 mls/hr Linezolid 600 mg/ Premix 300 mls @ 300 mls/hr IV Q12H [facility] Last Admin: 05/27/16 12:01 Dose: 300 mls/hr Gentamicin Sulfate 360 mg/ (Sodium Chloride) 159 mls @ 106 mls/hr IV Q24H [facility] Last Admin: 05/22/16 14:13 Dose: 106 mls/hr Acetaminophen 1,000 mg/ Premix 100 mls @ 400 mls/hr IV Q6H PRN PRN Reason: Pain/Fever Stop: 05/23/16 22:01 Last Admin: 05/23/16 21:13 Dose: 400 mls/hr Gentamicin Sulfate 420 mg/ (Sodium Chloride) 160.5 mls @ 107 mls/hr IV Q24H [facility] Last Admin: 05/25/16 13:29 Dose: 107 mls/hr Acetaminophen 1,000 mg/ Premix 100 mls @ 400 mls/hr IV Q6H PRN PRN Reason: Pain Stop: 05/25/16 06:39 Last Admin: 05/25/16 00:27 Dose: 400 mls/hr Acetaminophen 1,000 mg/ Premix 100 mls @ 400 mls/hr IV Q6H PRN PRN Reason: Pain Stop: 05/26/16 07:39 Last Admin: 05/26/16 05:14 Dose: 400 mls/hr Ciprofloxacin/Dextrose 400 mg/ (Premix) 200 mls @ 200 mls/hr IV Q12H [facility] Last Admin: 05/28/16 10:24 Dose: 200 mls/hr Acetaminophen 1,000 mg/ Premix 100 mls @ 400 mls/hr IV Q6H PRN PRN Reason: Pain Stop: 05/27/16 19:56 Last Admin: 05/26/16 20:17 Dose: 400 mls/hr Ampicillin Sodium 2 gm/ Sodium (Chloride) 100 mls @ 200 mls/hr IV Q6H [facility] Last Admin: 05/28/16 09:59 Dose: 200 mls/hr Acetaminophen 1,000 mg/ Premix 100 mls @ 400 mls/hr IV NOW ONE Stop: 05/27/16 23:56 Last Admin: 05/28/16 00:05 Dose: 400 mls/hr Sodium Chloride (Normal Saline) 70 mls @ 3 mls/sec IV ASDIRECTED ONE Stop: 05/28/16 05:42 Last Admin: 05/28/16 09:53 Dose: Not Given Ibuprofen (Motrin) 600 mg PO Q6H [facility] Last Admin: 05/13/16 05:24 Dose: Not Given Inulin (Fiber Choice) 4.5 gm PO BID [facility] Last Admin: 05/16/16 09:03 Dose: Not Given Iohexol (Omnipaque-300) 50 ml PO .ASDIRECTED [facility] Last Admin: 05/10/16 03:46 Dose: 50 ml Iohexol (Omnipaque-300) 10 ml PO . DIRECTED PRN PRN Reason: RADIOLOGY EXAM Stop: 05/20/16 08:30 Last Admin: 05/19/16 07:44 Dose: 10 ml Iopamidol (Isovue-300 (61%)) 100 ml IV . DIRECTED [facility] Last Admin: 05/13/16 19:22 Dose: 90 ml Iopamidol (Isovue-300 (61%)) 90 ml IV . DIRECTED PRN PRN Reason: RADIOLOGY EXAM Stop: 05/19/16 08:30 Last Admin: 05/19/16 07:44 Dose: 90 ml Iopamidol (Isovue-300 (61%)) 100 ml IV . DIRECTED PRN PRN Reason: RADIOLOGY EXAM Stop: 05/28/16 05:42 Last Admin: 05/28/16 06:14 Dose: 100 ml Ketamine HCl (Ketalar) 30 mg IV ASDIRECTED [facility] Stop: 05/09/16 11:00 Ketamine HCl (Ketalar) 30 mg IV .STK-MED ONE Stop: 05/09/16 09:46 Ketamine HCl (Ketalar) Confirm Administered Dose 500 mg .ROUTE .STK-MED ONE Stop: 05/14/16 08:51 Lactobacillus Rhamnosus (Culturelle) 2 cap PO BID [facility] Last Admin: 05/16/16 09:04 Dose: Not Given Lidocaine/Epinephrine (Xylocaine 1% With Epinephrine 1:100,000) Confirm Administered Dose 50 ml .ROUTE .STK-MED ONE Stop: 05/11/16 06:49 Last Admin: 05/11/16 09:09 Dose: 32 ml Lidocaine/Epinephrine (Xylocaine 1% With Epinephrine 1:100,000) Confirm Administered Dose 50 ml .ROUTE .STK-MED ONE Stop: 05/17/16 06:47 Last Admin: 05/17/16 08:07 Dose: 20 ml Lidocaine/Epinephrine (Xylocaine 1% With Epinephrine 1:100,000) Confirm Administered Dose 50 ml .ROUTE .STK-MED ONE Stop: 05/21/16 06:21 Last Admin: 05/21/16 08:48 Dose: 10 ml Meperidine HCl (Demerol) 50 mg IM ASDIRECTED PRN PRN Reason: PAIN Stop: 05/10/16 14:45 Meropenem (Merrem) Confirm Administered Dose 500 mg .ROUTE .STK-MED ONE Stop: 05/09/16 08:14 Last Admin: 05/09/16 10:24 Dose: 500 mg Meropenem (Merrem) Confirm Administered Dose 500 mg .ROUTE .STK-MED ONE Stop: 05/11/16 06:49 Last Admin: 05/11/16 09:10 Dose: 500 mg Meropenem (Merrem) Confirm Administered Dose 500 mg .ROUTE .STK-MED ONE Stop: 05/14/16 07:31 Last Admin: 05/14/16 10:19 Dose: 500 mg Meropenem (Merrem) Confirm Administered Dose 500 mg .ROUTE .STK-MED ONE Stop: 05/14/16 10:03 Last Admin: 05/14/16 10:19 Dose: 500 mg Meropenem (Merrem) Confirm Administered Dose 500 mg .ROUTE .STK-MED ONE Stop: 05/17/16 06:46 Last Admin: 05/17/16 08:12 Dose: 500 mg Meropenem (Merrem) Confirm Administered Dose 500 mg .ROUTE .STK-MED ONE Stop: 05/19/16 12:10 Last Admin: 05/19/16 13:30 Dose: 500 mg Meropenem (Merrem) Confirm Administered Dose 500 mg .ROUTE .STK-MED ONE Stop: 05/19/16 13:31 Last Admin: 05/19/16 14:25 Dose: 500 mg Meropenem (Merrem) Confirm Administered Dose 500 mg .ROUTE .STK-MED ONE Stop: 05/21/16 06:20 Last Admin: 05/21/16 08:51 Dose: 500 mg Metoclopramide HCl (Reglan) 10 mg IV Q6H [facility] Last Admin: 05/14/16 08:03 Dose: 10 mg Midazolam HCl (Versed 1 Mg/Ml) Confirm Administered Dose 2 mg .ROUTE .STK-MED ONE Stop: 05/14/16 07:44 Midazolam HCl (Versed 1 Mg/Ml) Confirm Administered Dose 2 mg .ROUTE .STK-MED ONE Stop: 05/17/16 07:22 Midazolam HCl (Versed 1 Mg/Ml) Confirm Administered Dose 2 mg .ROUTE .STK-MED ONE Stop: 05/19/16 12:13 Midazolam HCl (Versed 1 Mg/Ml) Confirm Administered Dose 2 mg .ROUTE .STK-MED ONE Stop: 05/21/16 08:19 Naloxone HCl (Narcan) 0.4 mg IV ASDIRECTED PRN PRN Reason: ITCHING Neostigmine Methylsulfate (Neostigmine) Confirm Administered Dose 5 mg .ROUTE .STK-MED ONE Stop: 05/09/16 08:37 Neostigmine Methylsulfate (Neostigmine) Confirm Administered Dose 5 mg .ROUTE .ST-MED ONE Stop: 05/14/16 07:44 Neostigmine Methylsulfate (Neostigmine) Confirm Administered Dose 5 mg .ROUTE .[facility]-MED ONE Stop: 05/19/16 12:14 Scopolamine Patch (Check) 1 each TOP DAILY [facility] Last Admin: 05/16/16 09:03 Dose: Not Given Check Fentanyl Patch (Daily) 1 each TOP DAILY [facility] Last Admin: 05/15/16 09:06 Dose: Not Given Non-Formulary Medication (Total Parenteral Nutrition, Central) 1,000 ml .XX .Continue Order [facility] Stop: 05/24/16 16:00 Non-Formulary Medication (Total Parenteral Nutrition, Central) 1,000 ml .XX .Continue Order [facility] Stop: 05/25/16 16:00 Non-Formulary Medication (Total Parenteral Nutrition, Central) 1,000 ml .XX .Continue Order [facility] Stop: 05/26/16 16:00 Non-Formulary Medication (Total Parenteral Nutrition, Central) 1,000 ml .XX .Continue Order [facility] Stop: 05/27/16 14:00 Ondansetron HCl (Zofran) Confirm Administered Dose 4 mg .ROUTE .STK-MED ONE Stop: 05/09/16 08:37 Ondansetron HCl (Zofran) Confirm Administered Dose 4 mg .ROUTE .STK-MED ONE Stop: 05/14/16 07:44 Ondansetron HCl (Zofran) Confirm Administered Dose 4 mg .ROUTE .STK-MED ONE Stop: 05/19/16 12:14 Pantoprazole Sodium (Protonix Iv) 40 mg IVPUSH Q24H [facility] Last Admin: 05/11/16 16:53 Dose: 40 mg Pantoprazole Sodium (Protonix) 40 mg PO Q24H [facility] Last Admin: 05/13/16 16:59 Dose: 40 mg Pantoprazole Sodium (Protonix Iv) 40 mg IV Q24H [facility] Last Admin: 05/26/16 15:51 Dose: 40 mg Phenylephrine HCl (Yan-Synephrine) Confirm Administered Dose 10 mg .ROUTE .STK- MED ONE Stop: 05/14/16 09:27 Propofol (Diprivan 20 Ml) Confirm Administered Dose 200 mg .ROUTE .STK-MED ONE Stop: 05/09/16 08:37 Propofol (Diprivan 20 Ml) Confirm Administered Dose 200 mg .ROUTE .STK-MED ONE Stop: 05/11/16 07:00 Propofol (Diprivan 20 Ml) Confirm Administered Dose 200 mg .ROUTE .STK-MED ONE Stop: 05/14/16 07:44 Propofol (Diprivan 20 Ml) Confirm Administered Dose 200 mg .ROUTE .STK-MED ONE Stop: 05/17/16 07:22 Propofol (Diprivan 20 Ml) Confirm Administered Dose 200 mg .ROUTE .STK-MED ONE Stop: 05/19/16 12:14 Propofol (Diprivan 20 Ml) Confirm Administered Dose 200 mg .ROUTE .STK-MED ONE Stop: 05/21/16 08:19 Rocuronium [place] (Zemuron) Confirm Administered Dose 100 mg .ROUTE .STK-MED ONE Stop: 05/09/16 08:37 Rocuronium [place] (Zemuron) Confirm Administered Dose 50 mg .ROUTE .STK-MED ONE Stop: 05/14/16 07:44 Rocuronium [place] (Zemuron) Confirm Administered Dose 50 mg .ROUTE .STK-MED ONE Stop: 05/19/16 12:14 Scopolamine (Transderm-Scop) 1.5 mg TOP Q72H [facility] Stop: 05/12/16 06:00 Last Admin: 05/09/16 07:53 Dose: 1.5 mg Scopolamine (Transderm-Scop) Confirm Administered Dose 1.5 mg .ROUTE .STK-MED ONE Stop: 05/09/16 08:37 Scopolamine (Transderm-Scop) 1.5 mg TOP ASDIRECTED [facility] Stop: 05/12/16 16:00 Scopolamine (Transderm-Scop) 1.5 mg TOP Q72H [facility] Last Admin: 05/12/16 09:17 Dose: 1.5 mg Sodium Chloride (Saline Flush) 10 ml FLUSH ONETIME ONE Stop: 05/13/16 18:10 Last Admin: 05/13/16 19:22 Dose: 10 ml Sodium Chloride (Saline Flush) 10 ml FLUSH . DIRECTED PRN PRN Reason: [id number] EXAM Stop: 05/28/16 05:42 Last Admin: 05/28/16 06:14 Dose: 10 ml Succinylcholine Chloride (Succinylcholine In Ns Pf) Confirm Administered Dose 200 mg .ROUTE .STK-MED ONE Stop: 05/09/16 08:37 Succinylcholine Chloride (Succinylcholine In Ns Pf) Confirm Administered Dose 200 mg .ROUTE .STK-MED ONE Stop: 05/14/16 07:44 Succinylcholine Chloride (Succinylcholine In Ns Pf) Confirm Administered Dose 200 mg .ROUTE .STK-MED ONE Stop: 05/19/16 12:14 Vancomycin HCl (Vancomycin) 1 gm IV .PHARMACY TO DOSE [facility] - Exam Quality Assessment: No: supplemental oxygen General: alert, oriented, cooperative, no acute distress Neck: supple Lungs: Normal respiratory effort Abdomen: soft, no distension Extremities: no edema, no cyanosis Skin: warm, dry Psy/Mental Status: alert, normal affect Consult PN Assessment/Plan Procedures: Procedures ASSAY OF LACTIC ACID (03/04/16) ASSAY OF MAGNESIUM (04/07/16) ASSAY OF PHOSPHORUS (04/07/16) ASSAY THYROID STIM HORMONE (10/08/15) BLOOD TYPING SEROLOGIC ABO (04/14/15) BLOOD TYPING SEROLOGIC RH(D) (04/14/15) C-REACTIVE PROTEIN (04/07/16) COMPLETE CBC AUTOMATED (04/07/16) COMPLETE CBC W/AUTO DIFF WBC (04/07/16) COMPREHEN METABOLIC PANEL (04/07/16) CT ABD & PELV W/CONTRAST (03/04/16) CULTURE SCREEN ONLY (11/10/15) ELECTROCARDIOGRAM TRACING (04/14/15) EMERGENCY DEPT VISIT (04/07/16) HYDRATE IV INFUSION ADD-ON (04/07/16) MEASURE BLOOD OXYGEN LEVEL (01/01/16) METABOLIC PANEL TOTAL CA (03/04/16) PT EVALUATION (11/10/15) RBC ANTIBODY SCREEN (04/14/15) ROUTINE VENIPUNCTURE (04/07/16) SPECIAL STAINS GROUP 2 (04/14/15) THER/PROPH/DIAG INJ IV PUSH (04/07/16) THER/PROPH/DIAG IV INF ADDON (03/04/16) THER/PROPH/DIAG IV INF INIT (03/04/16) THERAPEUTIC ACTIVITIES (11/10/15) TISSUE EXAM BY PATHOLOGIST (01/01/16) TISSUE EXAM BY PATHOLOGIST (01/01/16) TISSUE EXAM BY PATHOLOGIST (04/14/15) TISSUE EXAM BY PATHOLOGIST (04/14/15) TX/PRO/DX INJ NEW DRUG ADDON (04/07/16) URINALYSIS AUTO W/SCOPE (04/07/16) X-RAY EXAM OF ABDOMEN (04/07/16) X-RAY EXAM SERIES ABDOMEN (04/07/16) X-RAY UPPER GI DELAY W/O KUB (03/04/16) X-RAY UPPER GI&SMALL INTEST (04/07/16) (1) Elevated bilirubin SNOMED Code(s): 590981599 Code(s): R17 - UNSPECIFIED JAUNDICE Current Visit: Yes Problem List Initiated/Reviewed/Updated: Yes My Orders last 24 hours: My Active Orders 05/28/16 11:00 Piperacillin/Tazobactam/Dext [Zosyn in Dextrose Iso-Osmotic 3.375 GM] 3.375 gm Premix Bag 1 bag IV Q6H Plan: Assessment and Plan - Abdominal abscess with peritonitis secondary to JJ leak - status post exploratory laparotomy 3/4 and again last week because of splenic abscess. Multiple organisms cultured from those [address] scan overnight showed multiple small intra-abdominal abscesses and this could explain her increasing pain and slight increase in her white count. No evidence for sepsis at this time. -Change antibiotics to Pip/Tazo for better anaerobic coverage -additional postop cares per surgical team -Continue nutritional support with TPN, try to wean as able to improve appetite -Continue oral pain medications Intermittent Hypoxia - small pleural effusions seem to be improving based on imaging. Patient has been diuresing well without need for supplemental medications. -Monitor urine output -Wean oxygen as able Eduard Bedolla M.D.
[2016-05-28] MEDS: Pantoprazole 40 MG Tab.CR PO SCH (15:19)
[2016-05-29] MEDS: HYDROmorphone 2 MG Tab PO PRN ×6 (00:29→21:08)
[2016-05-29] MEDS: HYDROmorphone 0.5 MG/0.5 ML Syringe IVPUSH PRN ×2 (02:54→12:44)
[2016-05-29] MEDS: Acetaminophen 1,000 MG in Premix Bag 1 BAG IV SCH ×4 (03:00→22:02)
[2016-05-29] MEDS: Piperacillin/Tazobactam/Dext 3.375 GM in Premix Bag 1 BAG IV SCH ×4 (04:26→22:39)
[2016-05-29] MEDS: Ondansetron 4 MG/2 ML SDV IVPUSH PRN ×4 (07:18→22:39)
[2016-05-29] MEDS ORDERED: Central Total Parenteral Nutrition Bag SCH (07:45)
[2016-05-29] MEDS: Lubiprostone 24 MCG Cap PO SCH ×2 (08:14→17:09)
[2016-05-29] MEDS: Bisacodyl 10 MG Supp RECTAL SCH ×2 (08:15→20:02)
[2016-05-29] MEDS: Lactobacillus Rhamnosus GG (Probiotic) Cap PO SCH ×2 (08:15→21:07)
--- NOTE | 2016-05-29 11:46 | PN ---
DATE OF SERVICE: 05/29/2016 SUBJECTIVE: Carolyn had good pain control with IV Tylenol. She received Dilaudid around 3:00 a.m., otherwise she had good pain control. She ambulated 6 times. She rates her pain consistently around a 4 to a 5, temp max of 99.8. Oral intake 200, LACIE drains, A. 0. B. 10, green-tinged. C. 0. D. 22, serosanguineous. E. 0. F. 0. G. 3, serosanguineous. H. 0. 1. 10 mL, serosanguineous. 2. 5 mL, serosanguineous. Continues on the antibiotics of ampicillin, Cipro, Zosyn, managed by hospitalist, Eduard Bedolla MD. OBJECTIVE: GENERAL: Carolyn Hanks is a 55-year-old female. She is sitting up in the chair. She looks like she is feeling much better today. VITAL SIGNS: TPR is 97.9, 88, 16, blood pressure 115/75. HEENT: Negative. NECK: Supple. HEART: Regular rate and rhythm. LUNGS: Clear. Good air exchange. ABDOMEN: Incision looks good. She has midline murtaza and left upper quadrant staple line, both these are healing well. Her 10 LACIE drains are intact. Abdominal binder has been on. EXTREMITIES: She now is wearing LIANA stockings during the day and at night, she is putting on her SCDs. SKIN: Without rash. ASSESSMENT: 1. Exploratory laparotomy, total abdominal colectomy with ileorectal anastomosis, revision of small bowel component of the [place] gastric bypass, embolectomy, ablation of focal area, pelvic endometriosis with pelvic sidewall placement of Interceed mesh to displace small bowel from pelvic and abdominal wall to limit recurrent adhesive formation on 05/09/2016. 2. Delayed primary closure 05/11/2016. 3. Insertion of left subclavian triple lumen, drainage of intraabdominal abscess, irrigation, diffuse peritonitis, small bowel resection, separate jejunostomy to re- establish [place] small bowel anatomy for leak at the jejunostomy, focal abscess in the left upper quadrant. Diffuse peritonitis involving lower 2/3rd of the abdomen and pelvis, and limited pelvis anus abscess on 05/14/2016. 4. Delayed primary closure, 05/17/2016. 5. 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 6. Delayed primary closure, 05/21/2016. PLAN: 1. Rx Tylenol IV 1000 mg q.6 hours scheduled x24 hours. This is medically necessary because of the patient's pain, it is the only thing that keeps it under control. 2. Continue same TPN rate and content. 3. Check CBC, CMP, mag, phos in a.m. 4. Give 3 med cups per hour, record at bedside. 5. Check C. diff. This was reordered, original order 05/21/2016. 6. Discussion regarding protein drinks. She does like the Boost, she will try [employer] and Atkins Lift. Staff has gradually increased her oral intake, but we will need to get some protein in, in order to start decreasing the TPN. We will evaluate p.r.n. or in a.m. Gail Pedro PA-C /[id number]
[2016-05-29] MEDS: 1: AA 5%/Calcium/D15W/Lytes 1,000 ML with MVI, Adult with Vitamin K 10 ML, Chromium/Copp IV SCH ×3 (11:49)
--- NOTE | 2016-05-29 14:40 | PCM.CONSN ---
- General Info Date of Service: 05/29/16 Functional Status: Reports: pain controlled, tolerating diet, ambulating - Review of Systems General: Reports: Weakness. Denies: Fever Gastrointestinal: Reports: Abdominal pain Systems Review Comment:: No acute events overnight. Ongoing abdominal pain both in the left upper quadrant and right lower cord current areas. White blood cell count is stable. Appetite is not good but she has been able to get some food down. She has been up and walking around though this increases her pain significantly. No nausea or vomiting. 2 bowel movements yesterday but no significant diarrhea. - Patient Data Vitals - most recent: Last Vital Signs Temp 36.8 C 05/29/16 11:50 Pulse 76 05/29/16 11:50 Resp 18 05/29/16 11:50 BP 119/79 05/29/16 11:50 Pulse Ox 100 05/29/16 11:50 Weight - most recent: 60.781 kg I&O - last 24 hours: Intake & Output 05/28/16 05/29/16 05/29/16 22:59 06:59 14:59 Intake Total 1952 1345 540 Output Total 1220 1163 718 Balance 732 182 -178 Lab Results last 24 hrs: Laboratory Results - last 24 hr 05/28/16 05/29/16 05/29/16 Range/Units 16:20 04:22 04:22 WBC 12.9 H 12.6 H (4.5-11.0) K/uL RBC 3.43 3.46 (3.30-5.50) M/uL Hgb 9.7 L 9.3 L (12.0-15.0) g/dL Hct 29.5 L 29.9 L (36.0-48.0) % MCV 86 86 (80-98) fL MCH 28 27 (27-31) pg MCHC 33 31 L (32-36) % Plt Count 747 H 749 H (150-400) K/uL Neut % (Auto) 80 H (36-66) % Lymph % (Auto) 8 L (24-44) % Keith % (Auto) 11 H (2-6) % Eos % (Auto) 1 L (2-4) % Baso % (Auto) 1 (0-1) % Sodium 141 (140-148) mmol/L Potassium 4.1 (3.6-5.2) mmol/L Chloride 106 (100-108) mmol/L Carbon Dioxide 25 (21-32) mmol/L Anion Gap 10.4 (5.0-14.0) mmol/L BUN 22 H (7-18) mg/dL Creatinine 0.6 (0.6-1.0) mg/dL Est Cr Clr Drug Dosing 99.26 mL/min Estimated GFR (MDRD) > 60 (>60) Glucose 104 (74-106) mg/dL Calcium 8.3 L (8.5-10.1) mg/dL Phosphorus 4.3 (2.5-4.9) mg/dL Magnesium 2.0 (1.8-2.4) mg/dL Total Bilirubin 0.2 (0.2-1.0) mg/dL AST 21 (15-37) U/L ALT 38 (12-78) U/L Alkaline Phosphatase 80 (46-116) U/L Total Protein 6.7 (6.4-8.2) g/dL Albumin 2.6 L (3.4-5.0) g/dL Globulin 4.1 H (2.3-3.5) g/dL Albumin/Globulin Ratio 0.6 L (1.2-2.2) Dereje Results last 24 hrs: Microbiology 05/29/16 11:57 Clostridium difficile (PCR) - Final Stool / Feces NEGATIVE CDIFF TOXIN Med Orders - Current: Current Medications Acetaminophen (Tylenol) 650 mg RECTAL Q4H PRN PRN Reason: Fever Last Admin: 05/18/16 05:53 Dose: 650 mg Acetaminophen (Tylenol) 650 mg PO Q4H PRN PRN Reason: Pain/Fever Last Admin: 05/28/16 06:46 Dose: 650 mg Bacitracin (Bacitracin Oint 1 Gm) 1 dose TOP BID PRN PRN Reason: burn Last Admin: 05/12/16 20:31 Dose: 2 dose Bisacodyl (Dulcolax) 10 mg RECTAL BID [facility]Y Last Admin: 05/29/16 08:15 Dose: Not Given Dimethicone/Zinc Oxide (Rash Relief-Zinc Oxide [place]) 1 gm TOP ASDIRECTED PRN PRN Reason: Other Last Admin: 05/12/16 20:30 Dose: 1 bot Diphenhydramine HCl (Benadryl) 25 - 50 mg IVPUSH Q4H PRN PRN Reason: ITCHING Heparin Sodium (Porcine) (Heparin Lock Flush 100 Units/Ml Syringe) 500 units IVPUSH 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 Last Admin: 05/26/16 15:51 Dose: 500 units Hydromorphone HCl (Dilaudid) 0.5 mg IVPUSH Q2H PRN PRN Reason: Pain (severe 7-10) Last Admin: 05/29/16 12:44 Dose: 0.5 mg Hydromorphone HCl (Dilaudid) 2 - 4 mg PO Q4H PRN PRN Reason: Pain Last Admin: 05/29/16 12:25 Dose: 4 mg Lactated Ringer's (Ringers, Lactated) 1,000 mls @ 0 mls/hr IV ASDIRECTED [facility]AHY PRN Reason: KVO Last Admin: 05/27/16 12:00 Dose: 20 mls/hr Multivitamins/Minerals 10 ml/Chromium/Copper/Manganese/Seleni/Zn 1 ml/ Amino Ac/ Electrol/Dextrose/Calcium 1,011 mls @ 82 mls/hr IV .BY DURATION [facility] Last Admin: 05/28/16 22:22 Dose: 82 mls/hr Amino Ac/Electrol/Dextrose/Calcium (Clinimix E 5/15) 1,000 mls @ 82 mls/hr IV .BY DURATION [facility] Last Admin: 05/29/16 11:49 Dose: 82 mls/hr Piperacillin/Tazobactam/ (Dextrose 3.375 gm/ Premix) 50 mls @ 100 mls/hr IV Q6H [facility] Last Admin: 05/29/16 11:02 Dose: 100 mls/hr Acetaminophen 1,000 mg/ Premix 100 mls @ 400 mls/hr IV Q6H [facility] Stop: 05/30/16 04:14 Last Admin: 05/29/16 09:50 Dose: 400 mls/hr Lactobacillus Rhamnosus (Culturelle) 2 cap PO BID [facility] Last Admin: 05/29/16 08:15 Dose: 2 cap Lubiprostone (Amitiza) 24 mcg PO BIDMEALS [facility] Last Admin: 05/29/16 08:14 Dose: 24 mcg Naloxone HCl (Narcan) 0.1 mg IV ASDIRECTED PRN PRN Reason: decreased respiratory rate Ondansetron HCl (Zofran) 4 mg IVPUSH Q4H PRN PRN Reason: Nausea/Vomiting Last Admin: 05/29/16 11:41 Dose: 4 mg Pantoprazole Sodium (Protonix) 40 mg PO Q24H [facility] Last Admin: 05/28/16 15:19 Dose: 40 mg Senna/Docusate Sodium (Senna Plus) 1 tab PO BID [facility] Last Admin: 05/29/16 08:15 Dose: Not Given Discontinued Medications Acetaminophen (Tylenol) 650 mg PO Q6H [facility] Last Admin: 05/16/16 09:03 Dose: Not Given Albuterol/Ipratropium (Duoneb 3.0-0.5 Mg/3 Ml) 3 ml NEB ONETIME [facility] Stop: 05/13/16 19:09 Last Admin: 05/13/16 19:21 Dose: 3 ml Alvimopan (Entereg) 12 mg PO ONETIME ONE Stop: 05/09/16 08:31 Last Admin: 05/09/16 08:30 Dose: 12 mg Alvimopan (Entereg) 12 mg PO Q12H [facility] Stop: 05/16/16 09:01 Last Admin: 05/10/16 09:04 Dose: 12 mg Bisacodyl (Dulcolax) 10 mg PO BID [facility] Last Admin: 05/11/16 09:52 Dose: Not Given Bupivacaine HCl (Marcaine 0.5%) Confirm Administered Dose 50 ml .ROUTE .STK-MED ONE Stop: 05/11/16 06:49 Last Admin: 05/11/16 09:09 Dose: 32 ml Bupivacaine HCl (Marcaine 0.5%) Confirm Administered Dose 50 ml .ROUTE .STK-MED ONE Stop: 05/17/16 06:47 Last Admin: 05/17/16 08:07 Dose: 20 ml Bupivacaine HCl (Marcaine 0.5%) Confirm Administered Dose 50 ml .ROUTE .STK-MED ONE Stop: 05/19/16 14:06 Bupivacaine HCl (Marcaine 0.5%) Confirm Administered Dose 50 ml .ROUTE .STK-MED ONE Stop: 05/21/16 06:21 Last Admin: 05/21/16 08:48 Dose: 10 ml Bupivacaine HCl/Epinephrine Bitart (Marcaine 0.5%/Epinephrine 1:200,000) Confirm Administered Dose 50 ml .ROUTE .STK-MED ONE Stop: 05/19/16 14:06 Last Admin: 05/19/16 14:10 Dose: 25 ml Cefoxitin Sodium (Mefoxin) Confirm Administered Dose 2 gm .ROUTE .STK-MED ONE Stop: 05/09/16 06:55 Neomycin/Polymyxin 1 ml/ (Sodium Chloride 750 ml) 0 ml .XX ONETIME ONE Stop: 05/09/16 09:16 Last Admin: 05/09/16 13:25 Dose: Not Given Cyanocobalamin (Vitamin B12) 1,000 mcg IM ONETIME ONE Stop: 05/11/16 09:01 Last Admin: 05/11/16 09:53 Dose: 1,000 mcg Cyclobenzaprine HCl (Flexeril) 10 mg PO Q6H PRN PRN Reason: Muscle Spasm Last Admin: 05/13/16 06:22 Dose: 10 mg Dexamethasone (Dexamethasone) Confirm Administered Dose 4 mg .ROUTE .STK-MED ONE Stop: 05/09/16 08:37 Dexamethasone (Dexamethasone) Confirm Administered Dose 4 mg .ROUTE .STK-MED ONE Stop: 05/14/16 07:44 Dexamethasone (Dexamethasone) Confirm Administered Dose 4 mg .ROUTE .STK-MED ONE Stop: 05/19/16 12:14 Diatrizoate Meglum/Diatrizoate Sod (Gastrografin 37%) 30 ml PO . DIRECTED [facility] Stop: 05/13/16 19:46 Last Admin: 05/13/16 19:33 Dose: 30 mg Diphenhydramine HCl (Benadryl) 25 mg IVPUSH Q6H PRN PRN Reason: ITCHING Diphenoxylate HCl/Atropine (Lomotil 0.025-2.5 Mg) 1 tab PO ONETIME ONE Stop: 05/12/16 10:36 Last Admin: 05/12/16 10:55 Dose: 1 tab Diphenoxylate HCl/Atropine (Lomotil 0.025-2.5 Mg) 1 tab PO Q6H PRN PRN Reason: Diarrhea Edrophonium Chloride (Enlon) Confirm Administered Dose 150 mg .ROUTE .STK-MED ONE Stop: 05/14/16 10:59 Edrophonium Chloride (Enlon) Confirm Administered Dose 150 mg .ROUTE .STK-MED ONE Stop: 05/19/16 14:23 Fentanyl (Sublimaze) Confirm Administered Dose 500 mcg .ROUTE .STK-MED ONE Stop: 05/09/16 08:37 Fentanyl (Sublimaze) Confirm Administered Dose 100 mcg .ROUTE .STK-MED ONE Stop: 05/09/16 08:39 Fentanyl (Duragesic) 12 mcg TRDERM Q72H [facility] Last Admin: 05/13/16 13:15 Dose: Not Given Fentanyl (Sublimaze) Confirm Administered Dose 250 mcg .ROUTE .STK-MED ONE Stop: 05/14/16 07:44 Fentanyl (Duragesic) 25 mcg TRDERM Q72H [facility] Last Admin: 05/14/16 16:58 Dose: Not Given Fentanyl (Sublimaze) Confirm Administered Dose 100 mcg .ROUTE .STK-MED ONE Stop: 05/17/16 07:22 Fentanyl (Sublimaze) Confirm Administered Dose 250 mcg .ROUTE .STK-MED ONE Stop: 05/19/16 12:13 Fentanyl (Sublimaze) Confirm Administered Dose 100 mcg .ROUTE .STK-MED ONE Stop: 05/21/16 08:19 Furosemide (Lasix) 20 mg IVPUSH ONETIME ONE Stop: 05/13/16 18:01 Last Admin: 05/13/16 18:21 Dose: 20 mg Gabapentin (Neurontin) 300 mg PO ONETIME ONE Stop: 05/09/16 08:16 Last Admin: 05/09/16 07:53 Dose: 300 mg Gabapentin (Neurontin) 300 mg PO TID [facility] Last Admin: 05/12/16 21:54 Dose: 300 mg Glycopyrrolate () Confirm Administered Dose 1 mg .ROUTE .STK-MED ONE Stop: 05/09/16 08:37 Glycopyrrolate () Confirm Administered Dose 1 mg .ROUTE .STK-MED ONE Stop: 05/14/16 07:44 Glycopyrrolate () Confirm Administered Dose 1 mg .ROUTE .STK-MED ONE Stop: 05/19/16 12:14 Heparin Sodium (Porcine) (Heparin Sodium) 5,000 units SUBCUT Q12H [facility] Stop: 05/10/16 20:00 Last Admin: 05/10/16 06:23 Dose: 5,000 units Heparin Sodium (Porcine) (Heparin Sodium) 5,000 units SUBCUT Q12H [facility] Heparin Sodium (Porcine) (Heparin Sodium) 5,000 units SUBCUT ONETIME ONE Stop: 05/10/16 17:01 Last Admin: 05/10/16 16:45 Dose: 5,000 units Heparin Sodium (Porcine) (Heparin Lock Flush 100 Units/Ml Syringe) 500 units FLUSH .STK-MED ONE Stop: 05/14/16 10:20 Last Admin: 05/14/16 10:19 Dose: 500 units Heparin Sodium (Porcine) (Heparin Lock Flush 100 Units/Ml Syringe) Confirm Administered Dose 500 units .ROUTE .STK-MED ONE Stop: 05/15/16 17:28 Last Admin: 05/15/16 19:22 Dose: Not Given Heparin Sodium (Porcine) (Heparin Lock Flush 100 Units/Ml Syringe) Confirm Administered Dose 500 units .ROUTE .STK-MED ONE Stop: 05/19/16 21:35 Last Admin: 05/19/16 21:50 Dose: 500 units Hydromorphone HCl (Dilaudid) 2 - 4 mg PO Q4H PRN PRN Reason: PAIN Last Admin: 05/14/16 02:12 Dose: 4 mg Hydromorphone HCl (Dilaudid [employer] 15 Mg In Ns 30 Ml) 0 mg IV ASDIRECTED PRN; 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 Last Admin: 05/26/16 10:24 Dose: 15 mg Hydromorphone HCl (Dilaudid) 2 mg PO Q3H PRN PRN Reason: Pain (moderate 4-6) Last Admin: 05/26/16 19:10 Dose: 2 mg Hydroxyzine HCl (Vistaril) 75 - 100 mg IM Q4H PRN PRN Reason: PAIN NOT CONTROLLED BY AREA SUPERVISOR Last Admin: 05/13/16 02:48 Dose: 100 mg Hydroxyzine HCl (Vistaril) 100 mg IM Q4H PRN PRN Reason: PAIN NOT CONTROLLED BY AREA SUPERVISOR Last Admin: 05/21/16 10:40 Dose: 100 mg Dextrose/Lactated Ringer's (Dextrose 5%-Lactated Ringers) 1,000 mls @ 100 mls/ hr IV ASDIRECTED [facility]AHY Last Admin: 05/09/16 07:55 Dose: 100 mls/hr Cefoxitin Sodium 2 gm/ Sodium (Chloride) 50 mls @ 100 mls/hr IV ONETIME ONE Stop: 05/09/16 09:44 Last Admin: 05/09/16 09:08 Dose: 100 mls/hr Fentanyl 2,500 mcg/ Sodium (Chloride) 250 mls @ 0 mls/hr EPIDUR TITRATE SARAHY; Titrate PRN Reason: Protocol Last Admin: 05/10/16 09:12 Dose: 10 ml/hr, 10 mls/hr Ketamine HCl 100 mg/ Sodium (Chloride) 100 mls @ 18 mls/hr IV ASDIRECTED [facility] Stop: 05/09/16 13:00 Lactated Ringer's (Ringers, Lactated) Confirm Administered Dose 1,000 mls @ as directed .ROUTE .STK-MED ONE Stop: 05/09/16 08:37 Sodium Chloride (Normal Saline) Confirm Administered Dose 10 mls @ as directed .ROUTE .STK-MED ONE Stop: 05/09/16 08:39 Lidocaine HCl (Xylocaine-Mpf 1%) Confirm Administered Dose 2 mls @ as directed .ROUTE .STK-MED ONE Stop: 05/09/16 09:24 Lactated Ringer's (Ringers, Lactated) Confirm Administered Dose 1,000 mls @ as directed .ROUTE .STK-MED ONE Stop: 05/09/16 11:10 Lactated Ringer's (Ringers, Lactated) 500 mls @ 500 mls/hr IV .BOLUS ONE Stop: 05/09/16 14:59 Last Admin: 05/09/16 14:03 Dose: 500 mls/hr Dextrose/Lactated Ringer's (Dextrose 5%-Lactated Ringers) 1,000 mls @ 200 mls/ hr IV ASDIRECTED [facility] Stop: 05/10/16 17:59 Last Admin: 05/10/16 15:05 Dose: 200 mls/hr Multivitamins/Minerals 10 ml/Thiamine HCl 200 mg/ Chromium/Copper/Manganese/ Seleni/Zn 1 ml/ Dextrose/Lactated Ringer's 1,013 mls @ 100 mls/hr IV DAILY@ 1600 [facility] Last Admin: 05/14/16 16:33 Dose: Not Given Cefoxitin Sodium 2 gm/ Sodium (Chloride) 50 mls @ 100 mls/hr IV Q6H [facility] Last Admin: 05/12/16 03:39 Dose: 100 mls/hr Acetaminophen 1,000 mg/ Premix 100 mls @ 400 mls/hr IV Q6H [facility] Stop: 05/10/16 04:14 Last Admin: 05/10/16 04:19 Dose: 400 mls/hr Ketamine HCl 100 mg/ Sodium (Chloride) 101 mls @ as directed IV .STK-MED ONE Stop: 05/09/16 09:46 Dextrose/Lactated Ringer's (Dextrose 5%-Lactated Ringers) 1,000 mls @ 100 mls/ hr IV ASDIRECTED [facility] Last Admin: 05/13/16 02:59 Dose: 100 mls/hr Magnesium Sulfate 2 gm/ Sodium (Chloride) 54 mls @ 27 mls/hr IV ONETIME ONE Stop: 05/13/16 11:59 Last Admin: 05/13/16 10:01 Dose: 27 mls/hr Magnesium Sulfate 2 gm/ Premix 50 mls @ 25 mls/hr IV Q6H [facility] Stop: 05/15/16 05:59 Last Admin: 05/16/16 09:03 Dose: Not Given Potassium Phosphate 20 mmole/ (Sodium Chloride) 256.6667 mls @ 85 mls/hr IV Q3H [facility] Stop: 05/13/16 18:59 Last Admin: 05/13/16 19:49 Dose: 85 mls/hr Dextrose/Lactated Ringer's (Dextrose 5%-Lactated Ringers) 1,000 mls @ 80 mls/ hr IV ASDIRECTED [facility] Stop: 05/14/16 14:29 Last Admin: 05/13/16 18:20 Dose: 25 mls/hr Meropenem 500 mg/ Sodium (Chloride) 50 mls @ 100 mls/hr IV ONETIME ONE Stop: 05/13/16 18:29 Last Admin: 05/13/16 18:28 Dose: 100 mls/hr Sodium Chloride (Normal Saline) 70 mls @ 3 mls/sec IV ASDIRECTED [facility] Last Admin: 05/13/16 19:22 Dose: 3 mls/sec Meropenem 500 mg/ Sodium (Chloride) 50 mls @ 100 mls/hr IV Q6H [facility] Last Admin: 05/23/16 10:20 Dose: 100 mls/hr Aztreonam 1 gm/ Sodium (Chloride) 50 mls @ 100 mls/hr IV Q8HR [facility] Last Admin: 05/14/16 05:39 Dose: 100 mls/hr Aztreonam/Dextrose 1 gm/ (Premix) 50 mls @ 100 mls/hr IV Q8H [facility] Last Admin: 05/21/16 14:02 Dose: 100 mls/hr Sodium Chloride (Normal Saline) Confirm Administered Dose 10 mls @ as directed .ROUTE .[facility] ONE Stop: 05/14/16 08:52 Sodium Chloride (Normal Saline) Confirm Administered Dose 10 mls @ as directed .ROUTE .[facility] ONE Stop: 05/14/16 09:28 Lactated Ringer's (Ringers, Lactated) Confirm Administered Dose 1,000 mls @ as directed .ROUTE .[facility] ONE Stop: 05/14/16 09:34 Multivitamins/Minerals 10 ml/Chromium/Copper/Manganese/Seleni/Zn 1 ml/ Amino Ac/ Electrol/Dextrose/Calcium 1,011 mls @ 82 mls/hr IV .BY DURATION [facility] Stop: 05/16/16 10:59 Last Admin: 05/15/16 15:31 Dose: 82 mls/hr Amino Ac/Electrol/Dextrose/Calcium (Clinimix E 07/25) 1,000 mls @ 82 mls/hr IV .BY DURATION [facility] Stop: 05/16/16 10:59 Last Admin: 05/16/16 03:41 Dose: 82 mls/hr Lactated Ringer's (Ringers, Lactated) 1,000 mls @ 100 mls/hr IV ASDIRECTED [facility] Last Admin: 05/20/16 03:16 Dose: 100 mls/hr Acetaminophen 1,000 mg/ Premix 100 mls @ 400 mls/hr IV Q6H [facility] Stop: 05/15/16 10:14 Last Admin: 05/15/16 10:12 Dose: 400 mls/hr Albumin Human (Flexbumin 25%) 50 mls @ 50 mls/hr IV Q24H [facility] Stop: 05/23/16 23:00 Last Admin: 05/23/16 09:14 Dose: 50 mls/hr Albumin Human (Flexbumin 25%) 50 mls @ 50 mls/hr IV Q24H [facility] Stop: 05/23/16 23:00 Last Admin: 05/23/16 10:19 Dose: 50 mls/hr Albumin Human (Flexbumin 25%) 50 mls @ 50 mls/hr IV Q24H [facility] Stop: 05/23/16 23:00 Last Admin: 05/23/16 12:05 Dose: 50 mls/hr Albumin Human (Flexbumin 25%) 50 mls @ 50 mls/hr IV Q24H [facility] Stop: 05/23/16 23:00 Last Admin: 05/23/16 11:09 Dose: 50 mls/hr Potassium Phosphate 15 mmole/Lidocaine HCl 2 ml/ Sodium Chloride 157 mls @ 53 mls/hr IV Q3H [facility] Stop: 05/15/16 15:58 Last Admin: 05/15/16 13:04 Dose: 53 mls/hr Multivitamins/Minerals 10 ml/Chromium/Copper/Manganese/Seleni/Zn 1 ml/ Amino Ac/ Electrol/Dextrose/Calcium 1,011 mls @ 82 mls/hr IV .BY DURATION [facility] Stop: 05/23/16 14:30 Last Admin: 05/22/16 16:20 Dose: 82 mls/hr Amino Ac/Electrol/Dextrose/Calcium (Clinimix E 5/15) 1,000 mls @ 82 mls/hr IV .BY DURATION [facility] Stop: 05/23/16 14:30 Last Admin: 05/23/16 03:51 Dose: 82 mls/hr Potassium Phosphate 15 mmole/ (Sodium Chloride) 155 mls @ 55 mls/hr IV Q3H [facility] Stop: 05/16/16 16:50 Last Admin: 05/16/16 17:27 Dose: 55 mls/hr Levofloxacin/Dextrose 750 mg/ (Premix) 150 mls @ 100 mls/hr IV Q24H [facility] Last Admin: 05/21/16 11:17 Dose: 100 mls/hr Vancomycin HCl 1.3 gm/ Sodium (Chloride) 250 mls @ 167 mls/hr IV ONETIME ONE Stop: 05/17/16 14:29 Last Admin: 05/17/16 13:18 Dose: 167 mls/hr Vancomycin HCl 1 gm/ Sodium (Chloride) 250 mls @ 167 mls/hr IV Q12H [facility] Last Admin: 05/19/16 00:30 Dose: 167 mls/hr Sodium Chloride (Normal Saline) 70 mls @ 3 mls/sec IV ASDIRECTED [facility] Stop: 05/19/16 08:30 Lactated Ringer's (Ringers, Lactated) Confirm Administered Dose 1,000 mls @ as directed .ROUTE .[facility] ONE Stop: 05/19/16 13:23 Sodium Chloride (Normal Saline) Confirm Administered Dose 10 mls @ as directed .ROUTE .[facility] ONE Stop: 05/19/16 13:31 Vancomycin HCl 1 gm/ Sodium (Chloride) 250 mls @ 167 mls/hr IV Q8H [facility] Last Admin: 05/21/16 00:14 Dose: 167 mls/hr Fluconazole/Sodium Chloride (400 mg/ Premix) 200 mls @ 100 mls/hr IV Q24H [facility] Last Admin: 05/23/16 08:11 Dose: 100 mls/hr Vancomycin HCl 1.1 gm/ Sodium (Chloride) 250 mls @ 167 mls/hr IV Q8H [facility] Stop: 05/21/16 12:00 Last Admin: 05/21/16 09:50 Dose: 167 mls/hr Vancomycin HCl 1.1 gm/ Sodium (Chloride) 250 mls @ 167 mls/hr IV Q8H [facility] Last Admin: 05/22/16 09:28 Dose: 167 mls/hr Acetaminophen 1,000 mg/ Premix 100 mls @ 400 mls/hr IV Q6H PRN PRN Reason: Fever Stop: 05/22/16 21:01 Last Admin: 05/22/16 16:11 Dose: 400 mls/hr Linezolid 600 mg/ Premix 300 mls @ 300 mls/hr IV Q12H [facility] Last Admin: 05/27/16 12:01 Dose: 300 mls/hr Gentamicin Sulfate 360 mg/ (Sodium Chloride) 159 mls @ 106 mls/hr IV Q24H [facility] Last Admin: 05/22/16 14:13 Dose: 106 mls/hr Acetaminophen 1,000 mg/ Premix 100 mls @ 400 mls/hr IV Q6H PRN PRN Reason: Pain/Fever Stop: 05/23/16 22:01 Last Admin: 05/23/16 21:13 Dose: 400 mls/hr Gentamicin Sulfate 420 mg/ (Sodium Chloride) 160.5 mls @ 107 mls/hr IV Q24H [facility] Last Admin: 05/25/16 13:29 Dose: 107 mls/hr Multivitamins/Minerals 10 ml/Chromium/Copper/Manganese/Seleni/Zn 1 ml/ Amino Ac/ Electrol/Dextrose/Calcium 1,011 mls @ 82 mls/hr IV .BY DURATION [facility] Stop: 05/28/16 18:00 Last Admin: 05/27/16 19:46 Dose: 82 mls/hr Amino Ac/Electrol/Dextrose/Calcium (Clinimix E 5/15) 1,000 mls @ 82 mls/hr IV .BY DURATION [facility] Stop: 05/28/16 18:00 Last Admin: 05/28/16 09:38 Dose: 82 mls/hr Acetaminophen 1,000 mg/ Premix 100 mls @ 400 mls/hr IV Q6H PRN PRN Reason: Pain Stop: 05/25/16 06:39 Last Admin: 05/25/16 00:27 Dose: 400 mls/hr Acetaminophen 1,000 mg/ Premix 100 mls @ 400 mls/hr IV Q6H PRN PRN Reason: Pain Stop: 05/26/16 07:39 Last Admin: 05/26/16 05:14 Dose: 400 mls/hr Ciprofloxacin/Dextrose 400 mg/ (Premix) 200 mls @ 200 mls/hr IV Q12H [facility] Last Admin: 05/28/16 10:24 Dose: 200 mls/hr Acetaminophen 1,000 mg/ Premix 100 mls @ 400 mls/hr IV Q6H PRN PRN Reason: Pain Stop: 05/27/16 19:56 Last Admin: 05/26/16 20:17 Dose: 400 mls/hr Ampicillin Sodium 2 gm/ Sodium (Chloride) 100 mls @ 200 mls/hr IV Q6H [facility] Last Admin: 05/28/16 09:59 Dose: 200 mls/hr Acetaminophen 1,000 mg/ Premix 100 mls @ 400 mls/hr IV NOW ONE Stop: 05/27/16 23:56 Last Admin: 05/28/16 00:05 Dose: 400 mls/hr Sodium Chloride (Normal Saline) 70 mls @ 3 mls/sec IV ASDIRECTED ONE Stop: 05/28/16 05:42 Last Admin: 05/28/16 09:53 Dose: Not Given Acetaminophen 1,000 mg/ Premix 100 mls @ 400 mls/hr IV Q6H [facility] Stop: 05/29/16 04:14 Last Admin: 05/29/16 03:00 Dose: 400 mls/hr Ibuprofen (Motrin) 600 mg PO Q6H [facility] Last Admin: 05/13/16 05:24 Dose: Not Given Inulin (Fiber Choice) 4.5 gm PO BID [facility] Last Admin: 05/16/16 09:03 Dose: Not Given Iohexol (Omnipaque-300) 50 ml PO .ASDIRECTED [facility] Last Admin: 05/10/16 03:46 Dose: 50 ml Iohexol (Omnipaque-300) 10 ml PO . DIRECTED PRN PRN Reason: RADIOLOGY EXAM Stop: 05/20/16 08:30 Last Admin: 05/19/16 07:44 Dose: 10 ml Iopamidol (Isovue-300 (61%)) 100 ml IV . DIRECTED [facility] Last Admin: 05/13/16 19:22 Dose: 90 ml Iopamidol (Isovue-300 (61%)) 90 ml IV . DIRECTED PRN PRN Reason: RADIOLOGY EXAM Stop: 05/19/16 08:30 Last Admin: 05/19/16 07:44 Dose: 90 ml Iopamidol (Isovue-300 (61%)) 100 ml IV . DIRECTED PRN PRN Reason: RADIOLOGY EXAM Stop: 05/28/16 05:42 Last Admin: 05/28/16 06:14 Dose: 100 ml Ketamine HCl (Ketalar) 30 mg IV ASDIRECTED [facility] Stop: 05/09/16 11:00 Ketamine HCl (Ketalar) 30 mg IV .STK-MED ONE Stop: 05/09/16 09:46 Ketamine HCl (Ketalar) Confirm Administered Dose 500 mg .ROUTE .STK-MED ONE Stop: 05/14/16 08:51 Lactobacillus Rhamnosus (Culturelle) 2 cap PO BID [facility] Last Admin: 05/16/16 09:04 Dose: Not Given Lidocaine/Epinephrine (Xylocaine 1% With Epinephrine 1:100,000) Confirm Administered Dose 50 ml .ROUTE .STK-MED ONE Stop: 05/11/16 06:49 Last Admin: 05/11/16 09:09 Dose: 32 ml Lidocaine/Epinephrine (Xylocaine 1% With Epinephrine 1:100,000) Confirm Administered Dose 50 ml .ROUTE .STK-MED ONE Stop: 05/17/16 06:47 Last Admin: 05/17/16 08:07 Dose: 20 ml Lidocaine/Epinephrine (Xylocaine 1% With Epinephrine 1:100,000) Confirm Administered Dose 50 ml .ROUTE .ST-MED ONE Stop: 05/21/16 06:21 Last Admin: 05/21/16 08:48 Dose: 10 ml Meperidine HCl (Demerol) 50 mg IM ASDIRECTED PRN PRN Reason: PAIN Stop: 05/10/16 14:45 Meropenem (Merrem) Confirm Administered Dose 500 mg .ROUTE .ST-MED ONE Stop: 05/09/16 08:14 Last Admin: 05/09/16 10:24 Dose: 500 mg Meropenem (Merrem) Confirm Administered Dose 500 mg .ROUTE .ST-MED ONE Stop: 05/11/16 06:49 Last Admin: 05/11/16 09:10 Dose: 500 mg Meropenem (Merrem) Confirm Administered Dose 500 mg .ROUTE .ST-MED ONE Stop: 05/14/16 07:31 Last Admin: 05/14/16 10:19 Dose: 500 mg Meropenem (Merrem) Confirm Administered Dose 500 mg .ROUTE .ST-MED ONE Stop: 05/14/16 10:03 Last Admin: 05/14/16 10:19 Dose: 500 mg Meropenem (Merrem) Confirm Administered Dose 500 mg .ROUTE .ST-MED ONE Stop: 05/17/16 06:46 Last Admin: 05/17/16 08:12 Dose: 500 mg Meropenem (Merrem) Confirm Administered Dose 500 mg .ROUTE .ST-MED ONE Stop: 05/19/16 12:10 Last Admin: 05/19/16 13:30 Dose: 500 mg Meropenem (Merrem) Confirm Administered Dose 500 mg .ROUTE .STK-MED ONE Stop: 05/19/16 13:31 Last Admin: 05/19/16 14:25 Dose: 500 mg Meropenem (Merrem) Confirm Administered Dose 500 mg .ROUTE .STK-MED ONE Stop: 05/21/16 06:20 Last Admin: 05/21/16 08:51 Dose: 500 mg Metoclopramide HCl (Reglan) 10 mg IV Q6H [facility] Last Admin: 05/14/16 08:03 Dose: 10 mg Midazolam HCl (Versed 1 Mg/Ml) Confirm Administered Dose 2 mg .ROUTE .STK-MED ONE Stop: 05/14/16 07:44 Midazolam HCl (Versed 1 Mg/Ml) Confirm Administered Dose 2 mg .ROUTE .STK-MED ONE Stop: 05/17/16 07:22 Midazolam HCl (Versed 1 Mg/Ml) Confirm Administered Dose 2 mg .ROUTE .STK-MED ONE Stop: 05/19/16 12:13 Midazolam HCl (Versed 1 Mg/Ml) Confirm Administered Dose 2 mg .ROUTE .STK-MED ONE Stop: 05/21/16 08:19 Naloxone HCl (Narcan) 0.4 mg IV ASDIRECTED PRN PRN Reason: ITCHING Neostigmine Methylsulfate (Neostigmine) Confirm Administered Dose 5 mg .ROUTE .[facility]-MED ONE Stop: 05/09/16 08:37 Neostigmine Methylsulfate (Neostigmine) Confirm Administered Dose 5 mg .ROUTE .ST-MED ONE Stop: 05/14/16 07:44 Neostigmine Methylsulfate (Neostigmine) Confirm Administered Dose 5 mg .ROUTE .[facility] ONE Stop: 05/19/16 12:14 Scopolamine Patch (Check) 1 each TOP DAILY [facility] Last Admin: 05/16/16 09:03 Dose: Not Given Check Fentanyl Patch (Daily) 1 each TOP DAILY [facility] Last Admin: 05/15/16 09:06 Dose: Not Given Non-Formulary Medication (Total Parenteral Nutrition, Central) 1,000 ml .XX .Continue Order [facility] Stop: 05/24/16 16:00 Non-Formulary Medication (Total Parenteral Nutrition, Central) 1,000 ml .XX .Continue Order [facility] Stop: 05/25/16 16:00 Non-Formulary Medication (Total Parenteral Nutrition, Central) 1,000 ml .XX .Continue Order [facility] Stop: 05/26/16 16:00 Non-Formulary Medication (Total Parenteral Nutrition, Central) 1,000 ml .XX .Continue Order [facility] Stop: 05/27/16 14:00 Non-Formulary Medication (Total Parenteral Nutrition, Central) 1,000 ml .XX .Continue Order [facility] Stop: 05/28/16 14:00 Non-Formulary Medication (Total Parenteral Nutrition, Central) 1,000 ml .XX .Continue Order [facility] Stop: 05/29/16 14:00 Ondansetron HCl (Zofran) Confirm Administered Dose 4 mg .ROUTE .[facility] ONE Stop: 05/09/16 08:37 Ondansetron HCl (Zofran) Confirm Administered Dose 4 mg .ROUTE .[facility] ONE Stop: 05/14/16 07:44 Ondansetron HCl (Zofran) Confirm Administered Dose 4 mg .ROUTE .[facility] ONE Stop: 05/19/16 12:14 Pantoprazole Sodium (Protonix Iv) 40 mg IVPUSH Q24H [facility] Last Admin: 05/11/16 16:53 Dose: 40 mg Pantoprazole Sodium (Protonix) 40 mg PO Q24H [facility] Last Admin: 05/13/16 16:59 Dose: 40 mg Pantoprazole Sodium (Protonix Iv) 40 mg IV Q24H [facility] Last Admin: 05/26/16 15:51 Dose: 40 mg Phenylephrine HCl (Yan-Synephrine) Confirm Administered Dose 10 mg .ROUTE .[facility]- [facility] ONE Stop: 05/14/16 09:27 Propofol (Diprivan 20 Ml) Confirm Administered Dose 200 mg .ROUTE .[facility] ONE Stop: 05/09/16 08:37 Propofol (Diprivan 20 Ml) Confirm Administered Dose 200 mg .ROUTE .STK-[facility] ONE Stop: 05/11/16 07:00 Propofol (Diprivan 20 Ml) Confirm Administered Dose 200 mg .ROUTE .STK-MED ONE Stop: 05/14/16 07:44 Propofol (Diprivan 20 Ml) Confirm Administered Dose 200 mg .ROUTE .STK-MED ONE Stop: 05/17/16 07:22 Propofol (Diprivan 20 Ml) Confirm Administered Dose 200 mg .ROUTE .STK-[facility] ONE Stop: 05/19/16 12:14 Propofol (Diprivan 20 Ml) Confirm Administered Dose 200 mg .ROUTE .STK-[facility] ONE Stop: 05/21/16 08:19 Rocuronium Morral (Zemuron) Confirm Administered Dose 100 mg .ROUTE .[facility]K-[facility] ONE Stop: 05/09/16 08:37 Rocuronium Morral (Zemuron) Confirm Administered Dose 50 mg .ROUTE .STK-[facility] ONE Stop: 05/14/16 07:44 Rocuronium Morral (Zemuron) Confirm Administered Dose 50 mg .ROUTE .STK-MED ONE Stop: 05/19/16 12:14 Scopolamine (Transderm-Scop) 1.5 mg TOP Q72H [facility] Stop: 05/12/16 06:00 Last Admin: 05/09/16 07:53 Dose: 1.5 mg Scopolamine (Transderm-Scop) Confirm Administered Dose 1.5 mg .ROUTE .STK-[facility] ONE Stop: 05/09/16 08:37 Scopolamine (Transderm-Scop) 1.5 mg TOP ASDIRECTED [facility] Stop: 05/12/16 16:00 Scopolamine (Transderm-Scop) 1.5 mg TOP Q72H [facility] Last Admin: 05/12/16 09:17 Dose: 1.5 mg Sodium Chloride (Saline Flush) 10 ml FLUSH ONETIME ONE Stop: 05/13/16 18:10 Last Admin: 05/13/16 19:22 Dose: 10 ml Sodium Chloride (Saline Flush) 10 ml FLUSH . DIRECTED PRN PRN Reason: [id number] EXAM Stop: 05/28/16 05:42 Last Admin: 05/28/16 06:14 Dose: 10 ml Succinylcholine Chloride (Succinylcholine In Ns Pf) Confirm Administered Dose 200 mg .ROUTE .STK-MED ONE Stop: 05/09/16 08:37 Succinylcholine Chloride (Succinylcholine In Ns Pf) Confirm Administered Dose 200 mg .ROUTE .STK-MED ONE Stop: 05/14/16 07:44 Succinylcholine Chloride (Succinylcholine In Ns Pf) Confirm Administered Dose 200 mg .ROUTE .STK-MED ONE Stop: 05/19/16 12:14 Vancomycin HCl (Vancomycin) 1 gm IV .PHARMACY TO DOSE [facility] - Exam Quality Assessment: No: supplemental oxygen General: alert, oriented, cooperative, no acute distress Neck: supple Lungs: Normal respiratory effort Cardiovascular: Regular Rate, Regular Rhythm Abdomen: soft, no distension, tenderness (Left upper quadrant and right lower quadrant. Both of these areas feel warm to touch compared to the rest of the abdomen) Extremities: no edema, no cyanosis Skin: warm, dry Wound/Incisions: healing well, no drainage Psy/Mental Status: alert, normal affect Consult PN Assessment/Plan Procedures: Procedures ASSAY OF LACTIC ACID (03/04/16) ASSAY OF MAGNESIUM (04/07/16) ASSAY OF PHOSPHORUS (04/07/16) ASSAY THYROID STIM HORMONE (10/08/15) BLOOD TYPING SEROLOGIC ABO (04/14/15) BLOOD TYPING SEROLOGIC RH(D) (04/14/15) C-REACTIVE PROTEIN (04/07/16) COMPLETE CBC AUTOMATED (04/07/16) COMPLETE CBC W/AUTO DIFF WBC (04/07/16) COMPREHEN METABOLIC PANEL (04/07/16) CT ABD & PELV W/CONTRAST (03/04/16) CULTURE SCREEN ONLY (11/10/15) ELECTROCARDIOGRAM TRACING (04/14/15) EMERGENCY DEPT VISIT (04/07/16) HYDRATE IV INFUSION ADD-ON (04/07/16) MEASURE BLOOD OXYGEN LEVEL (01/01/16) METABOLIC PANEL TOTAL CA (03/04/16) PT EVALUATION (11/10/15) RBC ANTIBODY SCREEN (04/14/15) ROUTINE VENIPUNCTURE (04/07/16) SPECIAL STAINS GROUP 2 (04/14/15) THER/PROPH/DIAG INJ IV PUSH (04/07/16) THER/PROPH/DIAG IV INF ADDON (03/04/16) THER/PROPH/DIAG IV INF INIT (03/04/16) THERAPEUTIC ACTIVITIES (11/10/15) TISSUE EXAM BY PATHOLOGIST (01/01/16) TISSUE EXAM BY PATHOLOGIST (01/01/16) TISSUE EXAM BY PATHOLOGIST (04/14/15) TISSUE EXAM BY PATHOLOGIST (04/14/15) TX/PRO/DX INJ NEW DRUG ADDON (04/07/16) URINALYSIS AUTO W/SCOPE (04/07/16) X-RAY EXAM OF ABDOMEN (04/07/16) X-RAY EXAM SERIES ABDOMEN (04/07/16) X-RAY UPPER GI DELAY W/O KUB (03/04/16) X-RAY UPPER GI&SMALL INTEST (04/07/16) (1) Elevated bilirubin SNOMED Code(s): 397413873 Code(s): R17 - UNSPECIFIED JAUNDICE Current Visit: Yes Problem List Initiated/Reviewed/Updated: Yes Plan: Assessment and Plan - Abdominal abscesses with peritonitis secondary to JJ leak - status post exploratory laparotomy 3/4 and again last week because of splenic abscess. Multiple organisms cultured from those [address] scan showed persistent areas of abscess and these could explain her increasing pain issues. White blood cell count is stable. Low-grade temperature elevations but no true fever at this time. No evidence for sepsis at this time. -Change antibiotics to Pip/Tazo for better anaerobic coverage -additional postop cares per surgical team -Continue nutritional support with TPN, try to wean as able to improve appetite -Continue oral pain medications Intermittent Hypoxia - small pleural effusions seem to be improving based on imaging. Patient has been diuresing well without need for supplemental medications. -Monitor urine output -Wean oxygen as able Eduard Bedolla M.D.
[2016-05-29] MEDS: Pantoprazole 40 MG Tab.CR PO SCH (17:09)
[2016-05-30] MEDS: 1: AA 5%/Calcium/D15W/Lytes 1,000 ML with MVI, Adult with Vitamin K 10 ML, Chromium/Copp IV SCH ×6 (00:20→16:44)
[2016-05-30] MEDS: HYDROmorphone 2 MG Tab PO PRN ×5 (01:18→20:26)
[2016-05-30] MEDS: Acetaminophen 1,000 MG in Premix Bag 1 BAG IV SCH (03:57)
[2016-05-30] MEDS: Piperacillin/Tazobactam/Dext 3.375 GM in Premix Bag 1 BAG IV SCH ×4 (04:20→23:15)
[2016-05-30] MEDS: HYDROmorphone 0.5 MG/0.5 ML Syringe IVPUSH PRN ×2 (04:48→09:16)
[2016-05-30] MEDS: Ondansetron 4 MG/2 ML SDV IVPUSH PRN ×3 (07:17→15:14)
[2016-05-30] MEDS: Lubiprostone 24 MCG Cap PO SCH ×2 (07:19→16:56)
[2016-05-30] MEDS ORDERED: Central Total Parenteral Nutrition Bag SCH (07:30)
[2016-05-30] MEDS: Lactobacillus Rhamnosus GG (Probiotic) Cap PO SCH ×2 (08:54→20:28)
[2016-05-30] MEDS: Bisacodyl 10 MG Supp RECTAL SCH ×2 (08:55→20:29)
[2016-05-30] MEDS: Bacitracin Oint 1 GM U/D Packet TOP PRN (09:16)
--- NOTE | 2016-05-30 10:09 | PN ---
DATE OF SERVICE: 05/30/2016 SUBJECTIVE: Carolyn's temp max was 97.1. TPN is running without difficulty. Hemoglobin this morning was 9.7, oral intake has picked up. She has gotten in 840 mL. Pain has been controlled for the most part. LACIE drains were examined by Dr. Duke. There has basically been no change with exception of LACIE drain is cloudy, almost purulent. REVIEW OF SYSTEMS: Remainder of review of systems negative for any pertinent positives and negatives. OBJECTIVE: GENERAL: Carolyn is a 55-year-old female. VITAL SIGNS: TPR is 97.1, 79, 16. Blood pressure 120/74. HEENT: Negative. NECK: Supple. HEART: Regular rate and rhythm. LUNGS: Clear. ABDOMEN: Incision midline, murtaza are ready to come out. The left upper quadrant incision looks good. LACIE drains were examined by Kit Duke. There is a small amount of redness noted around the LACIE drain sites. For LACIE drainage and color, see intake and output on the EMR. EXTREMITIES: Without peripheral edema. ASSESSMENT: 1. 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 2. Delayed primary closure, 05/11/2016. 3. Insertion of left subclavian triple lumen, drainage of intraabdominal abscess, irrigation of diffuse peritonitis, small-bowel resection, separate jejunostomy to re- establish [place]-en-Y and small bowel anatomy for leak of jejunostomy focal abscess in the left upper quadrant. Diffuse peritonitis involving lower two thirds of the abdomen and pelvis and limited pelvis abscess on 05/14/2016. 4. Delayed primary closure, 05/14/2016. 5. 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 6. Delayed primary closure, 05/21/2016. PLAN: 1. TPN 40 mL continuous rate and content. 2. Discontinue IV Tylenol. Tylenol 650 mg scheduled p.o. q.6 hours. 3. Change bulb on LACIE drain. Check Gram stain, culture and sensitivity. Call Kit Duke MD, with Gram stain results. 4. Bacitracin around areas of LACIE drains that are reddened. 5. Check CBC, CMP, Mag, phos in a.m. 6. Remove midline LACIE drain. Removed midline murtaza. Apply benzoin and Steri-Strips. 7. Discharge planning discussed for discharge for home healthcare and to find out about her social security status. Gail Pedro PA-C /[phone]
[2016-05-30] MEDS: Acetaminophen 325 MG Tab PO SCH ×3 (10:20→21:54)
[2016-05-30] MEDS ORDERED: 1: AA 5%/Calcium/D15W/Lytes 1,000 ML with MVI, Adult with Vitamin K 10 ML, Chromium/Copp IV SCH ×3 (12:00)
--- NOTE | 2016-05-30 13:20 | PCM.CONSN ---
- General Info Date of Service: 05/30/16 Functional Status: Reports: tolerating diet, urinating - Review of Systems General: Reports: Weakness, Appetite. Denies: Fever, Chills Pulmonary: Reports: no symptoms Cardiovascular: Reports: No Symptoms Gastrointestinal: Reports: Abdominal pain. Denies: Nausea, Vomiting Systems Review Comment:: Ms. Hanks has continued to show slow improvement over the past several days. She is tolerating her liquid diet and has been able to be up and walking in the halls with minimal assistance. Vital signs have been stable and she has remained afebrile. White blood cell count remains mildly elevated. - Patient Data Vitals - most recent: Last Vital Signs Temp 97.1 F 05/30/16 07:20 Pulse 79 05/30/16 07:20 Resp 16 05/30/16 07:20 BP 120/74 05/30/16 07:20 Pulse Ox 98 05/30/16 07:20 Weight - most recent: 133 lb 15.987 oz I&O - last 24 hours: Intake & Output 05/29/16 05/30/16 05/30/16 22:59 06:59 14:59 Intake Total 3150 1138 330 Output Total 1520 1135 1012 Balance 1630 3 -682 Lab Results last 24 hrs: Laboratory Results - last 24 hr 05/30/16 05/30/16 05/30/16 Range/Units 04:00 04:47 07:39 WBC 12.2 H (4.5-11.0) K/uL RBC 3.48 (3.30-5.50) M/uL Hgb 9.7 L (12.0-15.0) g/dL Hct 30.2 L (36.0-48.0) % MCV 87 (80-98) fL MCH 28 (27-31) pg MCHC 32 (32-36) % Plt Count 759 H (150-400) K/uL Sodium 140 (140-148) mmol/L Potassium 4.1 (3.6-5.2) mmol/L Chloride 106 (100-108) mmol/L Carbon Dioxide 24 (21-32) mmol/L Anion Gap 9.8 (5.0-14.0) mmol/L BUN 22 H (7-18) mg/dL Creatinine 0.6 (0.6-1.0) mg/dL Est Cr Clr Drug Dosing 99.26 mL/min Estimated GFR (MDRD) > 60 (>60) Glucose 98 (74-106) mg/dL Calcium 8.5 (8.5-10.1) mg/dL Phosphorus 4.3 4.4 (2.5-4.9) mg/dL Magnesium 2.0 (1.8-2.4) mg/dL Total Bilirubin 0.2 (0.2-1.0) mg/dL AST 18 (15-37) U/L ALT 40 (12-78) U/L Alkaline Phosphatase 119 H (46-116) U/L Total Protein 6.6 (6.4-8.2) g/dL Albumin 2.6 L (3.4-5.0) g/dL Globulin 4.0 H (2.3-3.5) g/dL Albumin/Globulin Ratio 0.7 L (1.2-2.2) Dereje Results last 24 hrs: Microbiology 05/30/16 09:44 Gram Stain - Final Serous Fluid 05/19/16 14:17 Gram Stain - Final Abdomen - Abscess Wound Culture - Final Escherichia Coli Enterobacter Dissolvens Enterococcus Raffinosus Anaerobic Culture - Final NO GROWTH AFTER 3 DAYS 05/29/16 11:57 Clostridium difficile (PCR) - Final Stool / Feces NEGATIVE CDIFF TOXIN Med Orders - Current: Current Medications Acetaminophen (Tylenol) 650 mg RECTAL Q4H PRN PRN Reason: Fever Last Admin: 05/18/16 05:53 Dose: 650 mg Acetaminophen (Tylenol) 650 mg PO Q6H [facility] Last Admin: 05/30/16 10:20 Dose: 650 mg Bacitracin (Bacitracin Oint 1 Gm) 1 dose TOP BID PRN PRN Reason: burn Last Admin: 05/30/16 09:16 Dose: 1 dose Bisacodyl (Dulcolax) 10 mg RECTAL BID [facility] Last Admin: 05/30/16 08:55 Dose: Not Given Dimethicone/Zinc Oxide (Rash Relief-Zinc Oxide [place]) 1 gm TOP ASDIRECTED PRN PRN Reason: Other Last Admin: 05/12/16 20:30 Dose: 1 bot Diphenhydramine HCl (Benadryl) 25 - 50 mg IVPUSH Q4H PRN PRN Reason: ITCHING Heparin Sodium (Porcine) (Heparin Lock Flush 100 Units/Ml Syringe) 500 units IVPUSH ASDIRECTED PRN PRN Reason: [employer] Last Admin: 05/29/16 15:49 Dose: 500 units Hydromorphone HCl (Dilaudid) 0.5 mg IVPUSH Q2H PRN PRN Reason: Pain (severe 7-10) Last Admin: 05/30/16 09:16 Dose: 0.5 mg Hydromorphone HCl (Dilaudid) 2 - 4 mg PO Q4H PRN PRN Reason: Pain Last Admin: 05/30/16 11:15 Dose: 4 mg Lactated Ringer's (Ringers, Lactated) 1,000 mls @ 0 mls/hr IV ASDIRECTED [facility]AH[facility] PRN Reason: KVO Last Admin: 05/27/16 12:00 Dose: 20 mls/hr Piperacillin/Tazobactam/ (Dextrose 3.375 gm/ Premix) 50 mls @ 100 mls/hr IV Q6H [facility] Last Admin: 05/30/16 11:16 Dose: 100 mls/hr Multivitamins/Minerals 10 ml/Chromium/Copper/Manganese/Seleni/Zn 1 ml/ Amino Ac/ Electrol/Dextrose/Calcium 1,011 mls @ 40 mls/hr IV .BY DURATION [facility] Amino Ac/Electrol/Dextrose/Calcium (Clinimix E 07/25) 1,000 mls @ 40 mls/hr IV .BY DURATION [facility] Lactobacillus Rhamnosus (Culturelle) 2 cap PO BID [facility] Last Admin: 05/30/16 08:54 Dose: 2 cap Lubiprostone (Amitiza) 24 mcg PO BIDMEALS [facility] Last Admin: 05/30/16 07:19 Dose: 24 mcg Naloxone HCl (Narcan) 0.1 mg IV ASDIRECTED PRN PRN Reason: decreased respiratory rate Non-Formulary Medication (Total Parenteral Nutrition, Central) 1,000 ml .XX .Continue Order [facility] Stop: 05/30/16 16:00 Ondansetron HCl (Zofran) 4 mg IVPUSH Q4H PRN PRN Reason: Nausea/Vomiting Last Admin: 05/30/16 11:16 Dose: 4 mg Pantoprazole Sodium (Protonix) 40 mg PO Q24H [facility] Last Admin: 05/29/16 17:09 Dose: 40 mg Senna/Docusate Sodium (Senna Plus) 1 tab PO BID [facility] Last Admin: 05/30/16 08:55 Dose: Not Given Discontinued Medications Acetaminophen (Tylenol) 650 mg PO Q6H [facility] Last Admin: 05/16/16 09:03 Dose: Not Given Acetaminophen (Tylenol) 650 mg PO Q4H PRN PRN Reason: Pain/Fever Last Admin: 05/28/16 06:46 Dose: 650 mg Albuterol/Ipratropium (Duoneb 3.0-0.5 Mg/3 Ml) 3 ml NEB ONETIME STA Stop: 05/13/16 19:09 Last Admin: 05/13/16 19:21 Dose: 3 ml Alvimopan (Entereg) 12 mg PO ONETIME ONE Stop: 05/09/16 08:31 Last Admin: 05/09/16 08:30 Dose: 12 mg Alvimopan (Entereg) 12 mg PO Q12H [facility] Stop: 05/16/16 09:01 Last Admin: 05/10/16 09:04 Dose: 12 mg Bisacodyl (Dulcolax) 10 mg PO BID [facility] Last Admin: 05/11/16 09:52 Dose: Not Given Bupivacaine HCl (Marcaine 0.5%) Confirm Administered Dose 50 ml .ROUTE .STK-MED ONE Stop: 05/11/16 06:49 Last Admin: 05/11/16 09:09 Dose: 32 ml Bupivacaine HCl (Marcaine 0.5%) Confirm Administered Dose 50 ml .ROUTE .STK-MED ONE Stop: 05/17/16 06:47 Last Admin: 05/17/16 08:07 Dose: 20 ml Bupivacaine HCl (Marcaine 0.5%) Confirm Administered Dose 50 ml .ROUTE .STK-MED ONE Stop: 05/19/16 14:06 Bupivacaine HCl (Marcaine 0.5%) Confirm Administered Dose 50 ml .ROUTE .STK-MED ONE Stop: 05/21/16 06:21 Last Admin: 05/21/16 08:48 Dose: 10 ml Bupivacaine HCl/Epinephrine Bitart (Marcaine 0.5%/Epinephrine 1:200,000) Confirm Administered Dose 50 ml .ROUTE .STK-MED ONE Stop: 05/19/16 14:06 Last Admin: 05/19/16 14:10 Dose: 25 ml Cefoxitin Sodium (Mefoxin) Confirm Administered Dose 2 gm .ROUTE .STK-MED ONE Stop: 05/09/16 06:55 Neomycin/Polymyxin 1 ml/ (Sodium Chloride 750 ml) 0 ml .XX ONETIME ONE Stop: 05/09/16 09:16 Last Admin: 05/09/16 13:25 Dose: Not Given Cyanocobalamin (Vitamin B12) 1,000 mcg IM ONETIME ONE Stop: 05/11/16 09:01 Last Admin: 05/11/16 09:53 Dose: 1,000 mcg Cyclobenzaprine HCl (Flexeril) 10 mg PO Q6H PRN PRN Reason: Muscle Spasm Last Admin: 05/13/16 06:22 Dose: 10 mg Dexamethasone (Dexamethasone) Confirm Administered Dose 4 mg .ROUTE .STK-MED ONE Stop: 05/09/16 08:37 Dexamethasone (Dexamethasone) Confirm Administered Dose 4 mg .ROUTE .STK-MED ONE Stop: 05/14/16 07:44 Dexamethasone (Dexamethasone) Confirm Administered Dose 4 mg .ROUTE .STK-MED ONE Stop: 05/19/16 12:14 Diatrizoate Meglum/Diatrizoate Sod (Gastrografin 37%) 30 ml PO . DIRECTED [facility] Stop: 05/13/16 19:46 Last Admin: 05/13/16 19:33 Dose: 30 mg Diphenhydramine HCl (Benadryl) 25 mg IVPUSH Q6H PRN PRN Reason: ITCHING Diphenoxylate HCl/Atropine (Lomotil 0.025-2.5 Mg) 1 tab PO ONETIME ONE Stop: 05/12/16 10:36 Last Admin: 05/12/16 10:55 Dose: 1 tab Diphenoxylate HCl/Atropine (Lomotil 0.025-2.5 Mg) 1 tab PO Q6H PRN PRN Reason: Diarrhea Edrophonium Chloride (Enlon) Confirm Administered Dose 150 mg .ROUTE .STK-MED ONE Stop: 05/14/16 10:59 Edrophonium Chloride (Enlon) Confirm Administered Dose 150 mg .ROUTE .STK-MED ONE Stop: 05/19/16 14:23 Fentanyl (Sublimaze) Confirm Administered Dose 500 mcg .ROUTE .STK-MED ONE Stop: 05/09/16 08:37 Fentanyl (Sublimaze) Confirm Administered Dose 100 mcg .ROUTE .STK-MED ONE Stop: 05/09/16 08:39 Fentanyl (Duragesic) 12 mcg TRDERM Q72H [facility] Last Admin: 05/13/16 13:15 Dose: Not Given Fentanyl (Sublimaze) Confirm Administered Dose 250 mcg .ROUTE .STK-MED ONE Stop: 05/14/16 07:44 Fentanyl (Duragesic) 25 mcg TRDERM Q72H [facility] Last Admin: 05/14/16 16:58 Dose: Not Given Fentanyl (Sublimaze) Confirm Administered Dose 100 mcg .ROUTE .STK-MED ONE Stop: 05/17/16 07:22 Fentanyl (Sublimaze) Confirm Administered Dose 250 mcg .ROUTE .STK-MED ONE Stop: 05/19/16 12:13 Fentanyl (Sublimaze) Confirm Administered Dose 100 mcg .ROUTE .STK-MED ONE Stop: 05/21/16 08:19 Furosemide (Lasix) 20 mg IVPUSH ONETIME ONE Stop: 05/13/16 18:01 Last Admin: 05/13/16 18:21 Dose: 20 mg Gabapentin (Neurontin) 300 mg PO ONETIME ONE Stop: 05/09/16 08:16 Last Admin: 05/09/16 07:53 Dose: 300 mg Gabapentin (Neurontin) 300 mg PO TID [facility] Last Admin: 05/12/16 21:54 Dose: 300 mg Glycopyrrolate () Confirm Administered Dose 1 mg .ROUTE .STK-MED ONE Stop: 05/09/16 08:37 Glycopyrrolate () Confirm Administered Dose 1 mg .ROUTE .STK-MED ONE Stop: 05/14/16 07:44 Glycopyrrolate () Confirm Administered Dose 1 mg .ROUTE .STK-MED ONE Stop: 05/19/16 12:14 Heparin Sodium (Porcine) (Heparin Sodium) 5,000 units SUBCUT Q12H [facility] Stop: 05/10/16 20:00 Last Admin: 05/10/16 06:23 Dose: 5,000 units Heparin Sodium (Porcine) (Heparin Sodium) 5,000 units SUBCUT Q12H [facility] Heparin Sodium (Porcine) (Heparin Sodium) 5,000 units SUBCUT ONETIME ONE Stop: 05/10/16 17:01 Last Admin: 05/10/16 16:45 Dose: 5,000 units Heparin Sodium (Porcine) (Heparin Lock Flush 100 Units/Ml Syringe) 500 units FLUSH .STK-MED ONE Stop: 05/14/16 10:20 Last Admin: 05/14/16 10:19 Dose: 500 units Heparin Sodium (Porcine) (Heparin Lock Flush 100 Units/Ml Syringe) Confirm Administered Dose 500 units .ROUTE .STK-MED ONE Stop: 05/15/16 17:28 Last Admin: 05/15/16 19:22 Dose: Not Given Heparin Sodium (Porcine) (Heparin Lock Flush 100 Units/Ml Syringe) Confirm Administered Dose 500 units .ROUTE .STAMDL-MED ONE Stop: 05/19/16 21:35 Last Admin: 05/19/16 21:50 Dose: 500 units Hydromorphone HCl (Dilaudid) 2 - 4 mg PO Q4H PRN PRN Reason: PAIN Last Admin: 05/14/16 02:12 Dose: 4 mg Hydromorphone HCl (Dilaudid Trim Carpenter 15 Mg In Ns 30 Ml) 0 mg IV ASDIRECTED PRN; Protocol PRN 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: 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 Last Admin: 05/26/16 10:24 Dose: 15 mg Hydromorphone HCl (Dilaudid) 2 mg PO Q3H PRN PRN Reason: Pain (moderate 4-6) Last Admin: 05/26/16 19:10 Dose: 2 mg Hydroxyzine HCl (Vistaril) 75 - 100 mg IM Q4H PRN PRN Reason: PAIN NOT CONTROLLED BY TRANSPORTATION SECURITY SCREENER Last Admin: 05/13/16 02:48 Dose: 100 mg Hydroxyzine HCl (Vistaril) 100 mg IM Q4H PRN PRN Reason: PAIN NOT CONTROLLED BY TRANSPORTATION SECURITY SCREENER Last Admin: 05/21/16 10:40 Dose: 100 mg Dextrose/Lactated Ringer's (Dextrose 5%-Lactated Ringers) 1,000 mls @ 100 mls/ hr IV ASDIRECTED [facility] Last Admin: 05/09/16 07:55 Dose: 100 mls/hr Cefoxitin Sodium 2 gm/ Sodium (Chloride) 50 mls @ 100 mls/hr IV ONETIME ONE Stop: 05/09/16 09:44 Last Admin: 05/09/16 09:08 Dose: 100 mls/hr Fentanyl 2,500 mcg/ Sodium (Chloride) 250 mls @ 0 mls/hr EPIDUR TITRATE [facility]AHY; Titrate PRN Reason: Protocol Last Admin: 05/10/16 09:12 Dose: 10 ml/hr, 10 mls/hr Ketamine HCl 100 mg/ Sodium (Chloride) 100 mls @ 18 mls/hr IV ASDIRECTED [facility] Stop: 05/09/16 13:00 Lactated Ringer's (Ringers, Lactated) Confirm Administered Dose 1,000 mls @ as directed .ROUTE .STK-MED ONE Stop: 05/09/16 08:37 Sodium Chloride (Normal Saline) Confirm Administered Dose 10 mls @ as directed .ROUTE .STK-MED ONE Stop: 05/09/16 08:39 Lidocaine HCl (Xylocaine-Mpf 1%) Confirm Administered Dose 2 mls @ as directed .ROUTE .STK-MED ONE Stop: 05/09/16 09:24 Lactated Ringer's (Ringers, Lactated) Confirm Administered Dose 1,000 mls @ as directed .ROUTE .STK-MED ONE Stop: 05/09/16 11:10 Lactated Ringer's (Ringers, Lactated) 500 mls @ 500 mls/hr IV .BOLUS ONE Stop: 05/09/16 14:59 Last Admin: 05/09/16 14:03 Dose: 500 mls/hr Dextrose/Lactated Ringer's (Dextrose 5%-Lactated Ringers) 1,000 mls @ 200 mls/ hr IV ASDIRECTED [facility] Stop: 05/10/16 17:59 Last Admin: 05/10/16 15:05 Dose: 200 mls/hr Multivitamins/Minerals 10 ml/Thiamine HCl 200 mg/ Chromium/Copper/Manganese/ Seleni/Zn 1 ml/ Dextrose/Lactated Ringer's 1,013 mls @ 100 mls/hr IV DAILY@ 1600 [facility] Last Admin: 05/14/16 16:33 Dose: Not Given Cefoxitin Sodium 2 gm/ Sodium (Chloride) 50 mls @ 100 mls/hr IV Q6H [facility] Last Admin: 05/12/16 03:39 Dose: 100 mls/hr Acetaminophen 1,000 mg/ Premix 100 mls @ 400 mls/hr IV Q6H [facility] Stop: 05/10/16 04:14 Last Admin: 05/10/16 04:19 Dose: 400 mls/hr Ketamine HCl 100 mg/ Sodium (Chloride) 101 mls @ as directed IV .STK-MED ONE Stop: 05/09/16 09:46 Dextrose/Lactated Ringer's (Dextrose 5%-Lactated Ringers) 1,000 mls @ 100 mls/ hr IV ASDIRECTED [facility] Last Admin: 05/13/16 02:59 Dose: 100 mls/hr Magnesium Sulfate 2 gm/ Sodium (Chloride) 54 mls @ 27 mls/hr IV ONETIME ONE Stop: 05/13/16 11:59 Last Admin: 05/13/16 10:01 Dose: 27 mls/hr Magnesium Sulfate 2 gm/ Premix 50 mls @ 25 mls/hr IV Q6H [facility] Stop: 05/15/16 05:59 Last Admin: 05/16/16 09:03 Dose: Not Given Potassium Phosphate 20 mmole/ (Sodium Chloride) 256.6667 mls @ 85 mls/hr IV Q3H [facility] Stop: 05/13/16 18:59 Last Admin: 05/13/16 19:49 Dose: 85 mls/hr Dextrose/Lactated Ringer's (Dextrose 5%-Lactated Ringers) 1,000 mls @ 80 mls/ hr IV ASDIRECTED [facility] Stop: 05/14/16 14:29 Last Admin: 05/13/16 18:20 Dose: 25 mls/hr Meropenem 500 mg/ Sodium (Chloride) 50 mls @ 100 mls/hr IV ONETIME ONE Stop: 05/13/16 18:29 Last Admin: 05/13/16 18:28 Dose: 100 mls/hr Sodium Chloride (Normal Saline) 70 mls @ 3 mls/sec IV ASDIRECTED [facility] Last Admin: 05/13/16 19:22 Dose: 3 mls/sec Meropenem 500 mg/ Sodium (Chloride) 50 mls @ 100 mls/hr IV Q6H [facility] Last Admin: 05/23/16 10:20 Dose: 100 mls/hr Aztreonam 1 gm/ Sodium (Chloride) 50 mls @ 100 mls/hr IV Q8HR [facility] Last Admin: 05/14/16 05:39 Dose: 100 mls/hr Aztreonam/Dextrose 1 gm/ (Premix) 50 mls @ 100 mls/hr IV Q8H [facility] Last Admin: 05/21/16 14:02 Dose: 100 mls/hr Sodium Chloride (Normal Saline) Confirm Administered Dose 10 mls @ as directed .ROUTE .[facility] ONE Stop: 05/14/16 08:52 Sodium Chloride (Normal Saline) Confirm Administered Dose 10 mls @ as directed .ROUTE .[facility] ONE Stop: 05/14/16 09:28 Lactated Ringer's (Ringers, Lactated) Confirm Administered Dose 1,000 mls @ as directed .ROUTE .[facility] ONE Stop: 05/14/16 09:34 Multivitamins/Minerals 10 ml/Chromium/Copper/Manganese/Seleni/Zn 1 ml/ Amino Ac/ Electrol/Dextrose/Calcium 1,011 mls @ 82 mls/hr IV .BY DURATION [facility] Stop: 05/16/16 10:59 Last Admin: 05/15/16 15:31 Dose: 82 mls/hr Amino Ac/Electrol/Dextrose/Calcium (Clinimix E 07/25) 1,000 mls @ 82 mls/hr IV .BY DURATION [facility] Stop: 05/16/16 10:59 Last Admin: 05/16/16 03:41 Dose: 82 mls/hr Lactated Ringer's (Ringers, Lactated) 1,000 mls @ 100 mls/hr IV ASDIRECTED [facility] Last Admin: 05/20/16 03:16 Dose: 100 mls/hr Acetaminophen 1,000 mg/ Premix 100 mls @ 400 mls/hr IV Q6H [facility] Stop: 05/15/16 10:14 Last Admin: 05/15/16 10:12 Dose: 400 mls/hr Albumin Human (Flexbumin 25%) 50 mls @ 50 mls/hr IV Q24H [facility] Stop: 05/23/16 23:00 Last Admin: 05/23/16 09:14 Dose: 50 mls/hr Albumin Human (Flexbumin 25%) 50 mls @ 50 mls/hr IV Q24H [facility] Stop: 05/23/16 23:00 Last Admin: 05/23/16 10:19 Dose: 50 mls/hr Albumin Human (Flexbumin 25%) 50 mls @ 50 mls/hr IV Q24H [facility] Stop: 05/23/16 23:00 Last Admin: 05/23/16 12:05 Dose: 50 mls/hr Albumin Human (Flexbumin 25%) 50 mls @ 50 mls/hr IV Q24H [facility] Stop: 05/23/16 23:00 Last Admin: 05/23/16 11:09 Dose: 50 mls/hr Potassium Phosphate 15 mmole/Lidocaine HCl 2 ml/ Sodium Chloride 157 mls @ 53 mls/hr IV Q3H [facility] Stop: 05/15/16 15:58 Last Admin: 05/15/16 13:04 Dose: 53 mls/hr Multivitamins/Minerals 10 ml/Chromium/Copper/Manganese/Seleni/Zn 1 ml/ Amino Ac/ Electrol/Dextrose/Calcium 1,011 mls @ 82 mls/hr IV .BY DURATION [facility] Stop: 05/23/16 14:30 Last Admin: 05/22/16 16:20 Dose: 82 mls/hr Amino Ac/Electrol/Dextrose/Calcium (Clinimix E 07/25) 1,000 mls @ 82 mls/hr IV .BY DURATION [facility] Stop: 05/23/16 14:30 Last Admin: 05/23/16 03:51 Dose: 82 mls/hr Potassium Phosphate 15 mmole/ (Sodium Chloride) 155 mls @ 55 mls/hr IV Q3H [facility] Stop: 05/16/16 16:50 Last Admin: 05/16/16 17:27 Dose: 55 mls/hr Levofloxacin/Dextrose 750 mg/ (Premix) 150 mls @ 100 mls/hr IV Q24H [facility] Last Admin: 05/21/16 11:17 Dose: 100 mls/hr Vancomycin HCl 1.3 gm/ Sodium (Chloride) 250 mls @ 167 mls/hr IV ONETIME ONE Stop: 05/17/16 14:29 Last Admin: 05/17/16 13:18 Dose: 167 mls/hr Vancomycin HCl 1 gm/ Sodium (Chloride) 250 mls @ 167 mls/hr IV Q12H [facility] Last Admin: 05/19/16 00:30 Dose: 167 mls/hr Sodium Chloride (Normal Saline) 70 mls @ 3 mls/sec IV ASDIRECTED [facility] Stop: 05/19/16 08:30 Lactated Ringer's (Ringers, Lactated) Confirm Administered Dose 1,000 mls @ as directed .ROUTE .STK-MED ONE Stop: 05/19/16 13:23 Sodium Chloride (Normal Saline) Confirm Administered Dose 10 mls @ as directed .ROUTE .STK-MED ONE Stop: 05/19/16 13:31 Vancomycin HCl 1 gm/ Sodium (Chloride) 250 mls @ 167 mls/hr IV Q8H [facility] Last Admin: 05/21/16 00:14 Dose: 167 mls/hr Fluconazole/Sodium Chloride (400 mg/ Premix) 200 mls @ 100 mls/hr IV Q24H [facility] Last Admin: 05/23/16 08:11 Dose: 100 mls/hr Vancomycin HCl 1.1 gm/ Sodium (Chloride) 250 mls @ 167 mls/hr IV Q8H [facility] Stop: 05/21/16 12:00 Last Admin: 05/21/16 09:50 Dose: 167 mls/hr Vancomycin HCl 1.1 gm/ Sodium (Chloride) 250 mls @ 167 mls/hr IV Q8H [facility] Last Admin: 05/22/16 09:28 Dose: 167 mls/hr Acetaminophen 1,000 mg/ Premix 100 mls @ 400 mls/hr IV Q6H PRN PRN Reason: Fever Stop: 05/22/16 21:01 Last Admin: 05/22/16 16:11 Dose: 400 mls/hr Linezolid 600 mg/ Premix 300 mls @ 300 mls/hr IV Q12H [facility] Last Admin: 05/27/16 12:01 Dose: 300 mls/hr Gentamicin Sulfate 360 mg/ (Sodium Chloride) 159 mls @ 106 mls/hr IV Q24H [facility] Last Admin: 05/22/16 14:13 Dose: 106 mls/hr Acetaminophen 1,000 mg/ Premix 100 mls @ 400 mls/hr IV Q6H PRN PRN Reason: Pain/Fever Stop: 05/23/16 22:01 Last Admin: 05/23/16 21:13 Dose: 400 mls/hr Gentamicin Sulfate 420 mg/ (Sodium Chloride) 160.5 mls @ 107 mls/hr IV Q24H [facility] Last Admin: 05/25/16 13:29 Dose: 107 mls/hr Multivitamins/Minerals 10 ml/Chromium/Copper/Manganese/Seleni/Zn 1 ml/ Amino Ac/ Electrol/Dextrose/Calcium 1,011 mls @ 82 mls/hr IV .BY DURATION [facility] Stop: 05/28/16 18:00 Last Admin: 05/27/16 19:46 Dose: 82 mls/hr Amino Ac/Electrol/Dextrose/Calcium (Clinimix E 07/25) 1,000 mls @ 82 mls/hr IV .BY DURATION [facility] Stop: 05/28/16 18:00 Last Admin: 05/28/16 09:38 Dose: 82 mls/hr Acetaminophen 1,000 mg/ Premix 100 mls @ 400 mls/hr IV Q6H PRN PRN Reason: Pain Stop: 05/25/16 06:39 Last Admin: 05/25/16 00:27 Dose: 400 mls/hr Acetaminophen 1,000 mg/ Premix 100 mls @ 400 mls/hr IV Q6H PRN PRN Reason: Pain Stop: 05/26/16 07:39 Last Admin: 05/26/16 05:14 Dose: 400 mls/hr Ciprofloxacin/Dextrose 400 mg/ (Premix) 200 mls @ 200 mls/hr IV Q12H [facility] Last Admin: 05/28/16 10:24 Dose: 200 mls/hr Acetaminophen 1,000 mg/ Premix 100 mls @ 400 mls/hr IV Q6H PRN PRN Reason: Pain Stop: 05/27/16 19:56 Last Admin: 05/26/16 20:17 Dose: 400 mls/hr Ampicillin Sodium 2 gm/ Sodium (Chloride) 100 mls @ 200 mls/hr IV Q6H [facility] Last Admin: 05/28/16 09:59 Dose: 200 mls/hr Acetaminophen 1,000 mg/ Premix 100 mls @ 400 mls/hr IV NOW ONE Stop: 05/27/16 23:56 Last Admin: 05/28/16 00:05 Dose: 400 mls/hr Sodium Chloride (Normal Saline) 70 mls @ 3 mls/sec IV ASDIRECTED ONE Stop: 05/28/16 05:42 Last Admin: 05/28/16 09:53 Dose: Not Given Acetaminophen 1,000 mg/ Premix 100 mls @ 400 mls/hr IV Q6H [facility] Stop: 05/29/16 04:14 Last Admin: 05/29/16 03:00 Dose: 400 mls/hr Multivitamins/Minerals 10 ml/Chromium/Copper/Manganese/Seleni/Zn 1 ml/ Amino Ac/ Electrol/Dextrose/Calcium 1,011 mls @ 82 mls/hr IV .BY DURATION [facility] Last Admin: 05/30/16 00:20 Dose: 82 mls/hr Amino Ac/Electrol/Dextrose/Calcium (Clinimix E 15) 1,000 mls @ 82 mls/hr IV .BY DURATION [facility] Last Admin: 05/29/16 11:49 Dose: 82 mls/hr Acetaminophen 1,000 mg/ Premix 100 mls @ 400 mls/hr IV Q6H [facility] Stop: 05/30/16 04:14 Last Admin: 05/30/16 03:57 Dose: 400 mls/hr Ibuprofen (Motrin) 600 mg PO Q6H [facility] Last Admin: 05/13/16 05:24 Dose: Not Given Inulin (Fiber Choice) 4.5 gm PO BID [facility] Last Admin: 05/16/16 09:03 Dose: Not Given Iohexol (Omnipaque-300) 50 ml PO .ASDIRECTED [facility] Last Admin: 05/10/16 03:46 Dose: 50 ml Iohexol (Omnipaque-300) 10 ml PO . DIRECTED PRN PRN Reason: RADIOLOGY EXAM Stop: 05/20/16 08:30 Last Admin: 05/19/16 07:44 Dose: 10 ml Iopamidol (Isovue-300 (61%)) 100 ml IV . DIRECTED [facility] Last Admin: 05/13/16 19:22 Dose: 90 ml Iopamidol (Isovue-300 (61%)) 90 ml IV . DIRECTED PRN PRN Reason: RADIOLOGY EXAM Stop: 05/19/16 08:30 Last Admin: 05/19/16 07:44 Dose: 90 ml Iopamidol (Isovue-300 (61%)) 100 ml IV . DIRECTED PRN PRN Reason: RADIOLOGY EXAM Stop: 05/28/16 05:42 Last Admin: 05/28/16 06:14 Dose: 100 ml Ketamine HCl (Ketalar) 30 mg IV ASDIRECTED [facility] Stop: 05/09/16 11:00 Ketamine HCl (Ketalar) 30 mg IV .STK-MED ONE Stop: 05/09/16 09:46 Ketamine HCl (Ketalar) Confirm Administered Dose 500 mg .ROUTE .STK-MED ONE Stop: 05/14/16 08:51 Lactobacillus Rhamnosus (Culturelle) 2 cap PO BID [facility] Last Admin: 05/16/16 09:04 Dose: Not Given Lidocaine/Epinephrine (Xylocaine 1% With Epinephrine 1:100,000) Confirm Administered Dose 50 ml .ROUTE .STK-MED ONE Stop: 05/11/16 06:49 Last Admin: 05/11/16 09:09 Dose: 32 ml Lidocaine/Epinephrine (Xylocaine 1% With Epinephrine 1:100,000) Confirm Administered Dose 50 ml .ROUTE .STK-MED ONE Stop: 05/17/16 06:47 Last Admin: 05/17/16 08:07 Dose: 20 ml Lidocaine/Epinephrine (Xylocaine 1% With Epinephrine 1:100,000) Confirm Administered Dose 50 ml .ROUTE .STK-MED ONE Stop: 05/21/16 06:21 Last Admin: 05/21/16 08:48 Dose: 10 ml Meperidine HCl (Demerol) 50 mg IM ASDIRECTED PRN PRN Reason: PAIN Stop: 05/10/16 14:45 Meropenem (Merrem) Confirm Administered Dose 500 mg .ROUTE .STK-MED ONE Stop: 05/09/16 08:14 Last Admin: 05/09/16 10:24 Dose: 500 mg Meropenem (Merrem) Confirm Administered Dose 500 mg .ROUTE .STK-MED ONE Stop: 05/11/16 06:49 Last Admin: 05/11/16 09:10 Dose: 500 mg Meropenem (Merrem) Confirm Administered Dose 500 mg .ROUTE .STK-MED ONE Stop: 05/14/16 07:31 Last Admin: 05/14/16 10:19 Dose: 500 mg Meropenem (Merrem) Confirm Administered Dose 500 mg .ROUTE .STK-MED ONE Stop: 05/14/16 10:03 Last Admin: 05/14/16 10:19 Dose: 500 mg Meropenem (Merrem) Confirm Administered Dose 500 mg .ROUTE .STK-MED ONE Stop: 05/17/16 06:46 Last Admin: 05/17/16 08:12 Dose: 500 mg Meropenem (Merrem) Confirm Administered Dose 500 mg .ROUTE .STK-MED ONE Stop: 05/19/16 12:10 Last Admin: 05/19/16 13:30 Dose: 500 mg Meropenem (Merrem) Confirm Administered Dose 500 mg .ROUTE .STK-MED ONE Stop: 05/19/16 13:31 Last Admin: 05/19/16 14:25 Dose: 500 mg Meropenem (Merrem) Confirm Administered Dose 500 mg .ROUTE .STK-MED ONE Stop: 05/21/16 06:20 Last Admin: 05/21/16 08:51 Dose: 500 mg Metoclopramide HCl (Reglan) 10 mg IV Q6H [facility] Last Admin: 05/14/16 08:03 Dose: 10 mg Midazolam HCl (Versed 1 Mg/Ml) Confirm Administered Dose 2 mg .ROUTE .STK-MED ONE Stop: 05/14/16 07:44 Midazolam HCl (Versed 1 Mg/Ml) Confirm Administered Dose 2 mg .ROUTE .STK-[facility] ONE Stop: 05/17/16 07:22 Midazolam HCl (Versed 1 Mg/Ml) Confirm Administered Dose 2 mg .ROUTE .STK-MED ONE Stop: 05/19/16 12:13 Midazolam HCl (Versed 1 Mg/Ml) Confirm Administered Dose 2 mg .ROUTE .[facility] ONE Stop: 05/21/16 08:19 Naloxone HCl (Narcan) 0.4 mg IV ASDIRECTED PRN PRN Reason: ITCHING Neostigmine Methylsulfate (Neostigmine) Confirm Administered Dose 5 mg .ROUTE .[facility]-MED ONE Stop: 05/09/16 08:37 Neostigmine Methylsulfate (Neostigmine) Confirm Administered Dose 5 mg .ROUTE .STK-MED ONE Stop: 05/14/16 07:44 Neostigmine Methylsulfate (Neostigmine) Confirm Administered Dose 5 mg .ROUTE .ST-MED ONE Stop: 05/19/16 12:14 Scopolamine Patch (Check) 1 each TOP DAILY [facility] Last Admin: 05/16/16 09:03 Dose: Not Given Check Fentanyl Patch (Daily) 1 each TOP DAILY [facility] Last Admin: 05/15/16 09:06 Dose: Not Given Non-Formulary Medication (Total Parenteral Nutrition, Central) 1,000 ml .XX .Continue Order [facility] Stop: 05/24/16 16:00 Non-Formulary Medication (Total Parenteral Nutrition, Central) 1,000 ml .XX .Continue Order [facility] Stop: 05/25/16 16:00 Non-Formulary Medication (Total Parenteral Nutrition, Central) 1,000 ml .XX .Continue Order [facility] Stop: 05/26/16 16:00 Non-Formulary Medication (Total Parenteral Nutrition, Central) 1,000 ml .XX .Continue Order [facility] Stop: 05/27/16 14:00 Non-Formulary Medication (Total Parenteral Nutrition, Central) 1,000 ml .XX .Continue Order [facility] Stop: 05/28/16 14:00 Non-Formulary Medication (Total Parenteral Nutrition, Central) 1,000 ml .XX .Continue Order [facility] Stop: 05/29/16 14:00 Ondansetron HCl (Zofran) Confirm Administered Dose 4 mg .ROUTE .STK-MED ONE Stop: 05/09/16 08:37 Ondansetron HCl (Zofran) Confirm Administered Dose 4 mg .ROUTE .STK-MED ONE Stop: 05/14/16 07:44 Ondansetron HCl (Zofran) Confirm Administered Dose 4 mg .ROUTE .STK-MED ONE Stop: 05/19/16 12:14 Pantoprazole Sodium (Protonix Iv) 40 mg IVPUSH Q24H [facility] Last Admin: 05/11/16 16:53 Dose: 40 mg Pantoprazole Sodium (Protonix) 40 mg PO Q24H [facility] Last Admin: 05/13/16 16:59 Dose: 40 mg Pantoprazole Sodium (Protonix Iv) 40 mg IV Q24H [facility] Last Admin: 05/26/16 15:51 Dose: 40 mg Phenylephrine HCl (Yan-Synephrine) Confirm Administered Dose 10 mg .ROUTE .STK- MED ONE Stop: 05/14/16 09:27 Propofol (Diprivan 20 Ml) Confirm Administered Dose 200 mg .ROUTE .STK-MED ONE Stop: 05/09/16 08:37 Propofol (Diprivan 20 Ml) Confirm Administered Dose 200 mg .ROUTE .STK-MED ONE Stop: 05/11/16 07:00 Propofol (Diprivan 20 Ml) Confirm Administered Dose 200 mg .ROUTE .STK-MED ONE Stop: 05/14/16 07:44 Propofol (Diprivan 20 Ml) Confirm Administered Dose 200 mg .ROUTE .STK-MED ONE Stop: 05/17/16 07:22 Propofol (Diprivan 20 Ml) Confirm Administered Dose 200 mg .ROUTE .STK-MED ONE Stop: 05/19/16 12:14 Propofol (Diprivan 20 Ml) Confirm Administered Dose 200 mg .ROUTE .STK-MED ONE Stop: 05/21/16 08:19 Rocuronium [place] (Zemuron) Confirm Administered Dose 100 mg .ROUTE .STK-MED ONE Stop: 05/09/16 08:37 Rocuronium [place] (Zemuron) Confirm Administered Dose 50 mg .ROUTE .STK-MED ONE Stop: 05/14/16 07:44 Rocuronium [place] (Zemuron) Confirm Administered Dose 50 mg .ROUTE .STK-MED ONE Stop: 05/19/16 12:14 Scopolamine (Transderm-Scop) 1.5 mg TOP Q72H [facility] Stop: 05/12/16 06:00 Last Admin: 05/09/16 07:53 Dose: 1.5 mg Scopolamine (Transderm-Scop) Confirm Administered Dose 1.5 mg .ROUTE .STK-MED ONE Stop: 05/09/16 08:37 Scopolamine (Transderm-Scop) 1.5 mg TOP ASDIRECTED [facility] Stop: 05/12/16 16:00 Scopolamine (Transderm-Scop) 1.5 mg TOP Q72H [facility] Last Admin: 05/12/16 09:17 Dose: 1.5 mg Sodium Chloride (Saline Flush) 10 ml FLUSH ONETIME ONE Stop: 05/13/16 18:10 Last Admin: 05/13/16 19:22 Dose: 10 ml Sodium Chloride (Saline Flush) 10 ml FLUSH . DIRECTED PRN PRN Reason: [id number] EXAM Stop: 05/28/16 05:42 Last Admin: 05/28/16 06:14 Dose: 10 ml Succinylcholine Chloride (Succinylcholine In Ns Pf) Confirm Administered Dose 200 mg .ROUTE .STK-MED ONE Stop: 05/09/16 08:37 Succinylcholine Chloride (Succinylcholine In Ns Pf) Confirm Administered Dose 200 mg .ROUTE .STK-MED ONE Stop: 05/14/16 07:44 Succinylcholine Chloride (Succinylcholine In Ns Pf) Confirm Administered Dose 200 mg .ROUTE .STK-MED ONE Stop: 05/19/16 12:14 Vancomycin HCl (Vancomycin) 1 gm IV .PHARMACY TO DOSE [facility] - Exam Quality Assessment: DVT prophylaxis General: alert, oriented, cooperative, mild distress Lungs: Clear to auscultation, Normal respiratory effort Cardiovascular: Regular Rate, Regular Rhythm, No Murmurs Abdomen: bowel sounds present, soft, tenderness. No: rigidity, rebound, guarding, distension Extremities: no edema Skin: warm, dry, intact Consult PN Assessment/Plan Procedures: Procedures ASSAY OF LACTIC ACID (03/04/16) ASSAY OF MAGNESIUM (04/07/16) ASSAY OF PHOSPHORUS (04/07/16) ASSAY THYROID STIM HORMONE (10/08/15) BLOOD TYPING SEROLOGIC ABO (04/14/15) BLOOD TYPING SEROLOGIC RH(D) (04/14/15) C-REACTIVE PROTEIN (04/07/16) COMPLETE CBC AUTOMATED (04/07/16) COMPLETE CBC W/AUTO DIFF WBC (04/07/16) COMPREHEN METABOLIC PANEL (04/07/16) CT ABD & PELV W/CONTRAST (03/04/16) CULTURE SCREEN ONLY (11/10/15) ELECTROCARDIOGRAM TRACING (04/14/15) EMERGENCY DEPT VISIT (04/07/16) HYDRATE IV INFUSION ADD-ON (04/07/16) MEASURE BLOOD OXYGEN LEVEL (01/01/16) METABOLIC PANEL TOTAL CA (03/04/16) PT EVALUATION (11/10/15) RBC ANTIBODY SCREEN (04/14/15) ROUTINE VENIPUNCTURE (04/07/16) SPECIAL STAINS GROUP 2 (04/14/15) THER/PROPH/DIAG INJ IV PUSH (04/07/16) THER/PROPH/DIAG IV INF ADDON (03/04/16) THER/PROPH/DIAG IV INF INIT (03/04/16) THERAPEUTIC ACTIVITIES (11/10/15) TISSUE EXAM BY PATHOLOGIST (01/01/16) TISSUE EXAM BY PATHOLOGIST (01/01/16) TISSUE EXAM BY PATHOLOGIST (04/14/15) TISSUE EXAM BY PATHOLOGIST (04/14/15) TX/PRO/DX INJ NEW DRUG ADDON (04/07/16) URINALYSIS AUTO W/SCOPE (04/07/16) X-RAY EXAM OF ABDOMEN (04/07/16) X-RAY EXAM SERIES ABDOMEN (04/07/16) X-RAY UPPER GI DELAY W/O KUB (03/04/16) X-RAY UPPER GI&SMALL INTEST (04/07/16) Problem List Initiated/Reviewed/Updated: Yes Plan: Assessment and Plan - Abdominal abscesses with peritonitis secondary to JJ leak - status post exploratory laparotomy 3/ and again last week because of splenic abscess. White blood cell count is stable. Low-grade temperature elevations but no true fever at this time. No evidence for sepsis at this time. Subjectively and objectively appears to be slowly improving -Change antibiotics to Pip/Tazo for better anaerobic coverage -additional postop cares per surgical team -Continue nutritional support with TPN, try to wean as able to improve appetite -Continue oral pain medications Intermittent Hypoxia - small pleural effusions seem to be improving based on imaging. Patient has been diuresing well without need for supplemental medications. -Monitor urine output -Wean oxygen as able
[2016-05-30] MEDS: Lactated Ringers 1,000 ML IV SCH (15:15)
[2016-05-30] MEDS: Pantoprazole 40 MG Tab.CR PO SCH (16:57)
[2016-05-31] MEDS: HYDROmorphone 2 MG Tab PO PRN ×5 (00:59→20:10)
[2016-05-31] MEDS: Acetaminophen 325 MG Tab PO SCH ×4 (03:47→22:44)
[2016-05-31] MEDS: Piperacillin/Tazobactam/Dext 3.375 GM in Premix Bag 1 BAG IV SCH ×4 (05:08→23:48)
[2016-05-31] MEDS: Lactobacillus Rhamnosus GG (Probiotic) Cap PO SCH ×2 (09:50→22:42)
[2016-05-31] MEDS: Lubiprostone 24 MCG Cap PO SCH ×2 (09:50→17:50)
[2016-05-31] MEDS: Ondansetron 4 MG/2 ML SDV IVPUSH PRN ×3 (09:59→23:11)
[2016-05-31] MEDS: Bisacodyl 10 MG Supp RECTAL SCH (10:59)
--- NOTE | 2016-05-31 11:48 | PN ---
DATE OF SERVICE: 05/31/2016 The patient has not been afebrile with T-max of 99. Temperature has been in the 98 range, and the oral intake yesterday was quite good, around 2200. Given this level, we will back down on the TPN and stop that when the present bag is completed. She is having frequent loose bowel movements, she did have a C. difficile test which was negative, so will have her start on some Lomotil, along with fiber wafers today. The LACIE B has around 8 mL of which is a greenish brown. It does have a few gram-negative rods in it, and we will continue the Zosyn pending the C and S results. That drain may be something she goes home with. I am uncertain what the source is. Certainly, there is not any gross leak at this point. Her bowels are moving satisfactorily, and overall, she looks and feels quite good, so at this point, we probably would simply send her home with a drain in place, probably covered with some antibiotics once we get the [employer] results from yesterday's cultures. Kit Duke MD /[id number]
[2016-05-31] MEDS: Inulin 1.5 GM Chewable Tab PO SCH ×2 (14:15→22:42)
[2016-05-31] MEDS: Atropine/Diphenoxylate 0.025-2.5 MG Tab PO SCH ×2 (15:14→22:53)
[2016-05-31] MEDS: Pantoprazole 40 MG Tab.CR PO SCH (16:10)
--- NOTE | 2016-05-31 16:48 | PCM.CONSN ---
- General Info Date of Service: 05/31/16 Functional Status: Reports: pain controlled, tolerating diet, ambulating, urinating - Review of Systems General: Reports: Weakness. Denies: Fever, Chills Pulmonary: Reports: no symptoms Cardiovascular: Reports: No Symptoms Gastrointestinal: Reports: Abdominal pain, Flatus. Denies: Diarrhea, Difficulty swallowing, Nausea, Vomiting Genitourinary: Reports: no symptoms Systems Review Comment:: This patient has continued to improve on a daily basis, white blood cell count is normal and she has remained afebrile. Vital signs have been stable and she' s been up and walking in the halls. Plan is for potential discharge to home tomorrow. - Patient Data Vitals - most recent: Last Vital Signs Temp 98.9 F 05/31/16 12:21 Pulse 82 05/31/16 12:21 Resp 20 05/31/16 12:21 BP 102/69 05/31/16 12:21 Pulse Ox 98 05/31/16 12:21 Weight - most recent: 133 lb 15.987 oz I&O - last 24 hours: Intake & Output 05/31/16 05/31/16 05/31/16 06:59 14:59 22:59 Intake Total 1099 521 Output Total 843 800 Balance 256 -800 521 Lab Results last 24 hrs: Laboratory Results - last 24 hr 05/31/16 05/31/16 Range/Units 04:45 04:45 WBC 11.0 (4.5-11.0) K/uL RBC 3.42 (3.30-5.50) M/uL Hgb 9.7 L (12.0-15.0) g/dL Hct 29.7 L (36.0-48.0) % MCV 87 (80-98) fL MCH 28 (27-31) pg MCHC 33 (32-36) % Plt Count 736 H (150-400) K/uL Sodium 138 L (140-148) mmol/L Potassium 3.9 (3.6-5.2) mmol/L Chloride 105 (100-108) mmol/L Carbon Dioxide 22 (21-32) mmol/L Anion Gap 14.9 H (5.0-14.0) mmol/L BUN 25 H (7-18) mg/dL Creatinine 0.6 (0.6-1.0) mg/dL Est Cr Clr Drug Dosing 99.26 mL/min Estimated GFR (MDRD) > 60 (>60) Glucose 92 (74-106) mg/dL Calcium 8.6 (8.5-10.1) mg/dL Total Bilirubin 0.2 (0.2-1.0) mg/dL AST 18 (15-37) U/L ALT 38 (12-78) U/L Alkaline Phosphatase 111 (46-116) U/L Total Protein 7.0 (6.4-8.2) g/dL Albumin 2.7 L (3.4-5.0) g/dL Globulin 4.3 H (2.3-3.5) g/dL Albumin/Globulin Ratio 0.6 L (1.2-2.2) Dereje Results last 24 hrs: Microbiology 05/30/16 09:44 Gram Stain - Final Serous Fluid Body Fluid Culture - Preliminary Med Orders - Current: Current Medications Acetaminophen (Tylenol) 650 mg RECTAL Q4H PRN PRN Reason: Fever Last Admin: 05/18/16 05:53 Dose: 650 mg Acetaminophen (Tylenol) 650 mg PO Q6H [facility] [place] Last Admin: 05/31/16 16:10 Dose: 650 mg Bacitracin (Bacitracin Oint 1 Gm) 1 dose TOP BID PRN PRN Reason: burn Last Admin: 05/30/16 09:16 Dose: 1 dose Bisacodyl (Dulcolax) 10 mg RECTAL BID [facility] [place] Last Admin: 05/31/16 10:59 Dose: Not Given Dimethicone/Zinc Oxide (Rash Relief-Zinc Oxide [place]) 1 gm TOP ASDIRECTED PRN PRN Reason: Other Last Admin: 05/12/16 20:30 Dose: 1 bot Diphenhydramine HCl (Benadryl) 25 - 50 mg IVPUSH Q4H PRN PRN Reason: ITCHING Diphenoxylate HCl/Atropine (Lomotil 0.025-2.5 Mg) 1 tab PO TID [facility] [place] Last Admin: 05/31/16 15:14 Dose: 1 tab Heparin Sodium (Porcine) (Heparin Lock Flush 100 Units/Ml Syringe) 500 units IVPUSH 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[employer] Last Admin: 05/31/16 16:24 Dose: 500 units Hydromorphone HCl (Dilaudid) 0.5 mg IVPUSH Q2H PRN PRN Reason: Pain (severe 7-10) Last Admin: 05/30/16 09:16 Dose: 0.5 mg Hydromorphone HCl (Dilaudid) 2 - 4 mg PO Q4H PRN PRN Reason: Pain Last Admin: 05/31/16 16:08 Dose: 4 mg Lactated Ringer's (Ringers, Lactated) 1,000 mls @ 0 mls/hr IV ASDIRECTED SARAHY PRN Reason: KVO Last Admin: 05/30/16 15:15 Dose: 20 mls/hr Piperacillin/Tazobactam/ (Dextrose 3.375 gm/ Premix) 50 mls @ 100 mls/hr IV Q6H [facility] [place] Last Admin: 05/31/16 16:24 Dose: 100 mls/hr Inulin (Fiber Choice) 4.5 gm PO BID [facility] [place] Last Admin: 05/31/16 14:15 Dose: 4.5 gm Lactobacillus Rhamnosus (Culturelle) 2 cap PO BID [facility] [place] Last Admin: 05/31/16 09:50 Dose: 2 cap Lubiprostone (Amitiza) 24 mcg PO BIDMEALS [facility] [place] Last Admin: 05/31/16 09:50 Dose: 24 mcg Naloxone HCl (Narcan) 0.1 mg IV ASDIRECTED PRN PRN Reason: decreased respiratory rate Ondansetron HCl (Zofran) 4 mg IVPUSH Q4H PRN PRN Reason: Nausea/Vomiting Last Admin: 05/31/16 16:14 Dose: 4 mg Pantoprazole Sodium (Protonix) 40 mg PO Q24H [facility] [place] Last Admin: 05/31/16 16:10 Dose: 40 mg Senna/Docusate Sodium (Senna Plus) 1 tab PO BID [facility] [place] Last Admin: 05/31/16 10:59 Dose: Not Given Discontinued Medications Acetaminophen (Tylenol) 650 mg PO Q6H [facility] [place] Last Admin: 05/16/16 09:03 Dose: Not Given Acetaminophen (Tylenol) 650 mg PO Q4H PRN PRN Reason: Pain/Fever Last Admin: 05/28/16 06:46 Dose: 650 mg Albuterol/Ipratropium (Duoneb 3.0-0.5 Mg/3 Ml) 3 ml NEB ONETIME STA Stop: 05/13/16 19:09 Last Admin: 05/13/16 19:21 Dose: 3 ml Alvimopan (Entereg) 12 mg PO ONETIME ONE Stop: 05/09/16 08:31 Last Admin: 05/09/16 08:30 Dose: 12 mg Alvimopan (Entereg) 12 mg PO Q12H [facility] [place] Stop: 05/16/16 09:01 Last Admin: 05/10/16 09:04 Dose: 12 mg Bisacodyl (Dulcolax) 10 mg PO BID [facility] [place] Last Admin: 05/11/16 09:52 Dose: Not Given Bupivacaine HCl (Marcaine 0.5%) Confirm Administered Dose 50 ml .ROUTE .STK-MED ONE Stop: 05/11/16 06:49 Last Admin: 05/11/16 09:09 Dose: 32 ml Bupivacaine HCl (Marcaine 0.5%) Confirm Administered Dose 50 ml .ROUTE .STK-MED ONE Stop: 05/17/16 06:47 Last Admin: 05/17/16 08:07 Dose: 20 ml Bupivacaine HCl (Marcaine 0.5%) Confirm Administered Dose 50 ml .ROUTE .STK-MED ONE Stop: 05/19/16 14:06 Bupivacaine HCl (Marcaine 0.5%) Confirm Administered Dose 50 ml .ROUTE .STK-MED ONE Stop: 05/21/16 06:21 Last Admin: 05/21/16 08:48 Dose: 10 ml Bupivacaine HCl/Epinephrine Bitart (Marcaine 0.5%/Epinephrine 1:200,000) Confirm Administered Dose 50 ml .ROUTE .STK-MED ONE Stop: 05/19/16 14:06 Last Admin: 05/19/16 14:10 Dose: 25 ml Cefoxitin Sodium (Mefoxin) Confirm Administered Dose 2 gm .ROUTE .STK-MED ONE Stop: 05/09/16 06:55 Neomycin/Polymyxin 1 ml/ (Sodium Chloride 750 ml) 0 ml .XX ONETIME ONE Stop: 05/09/16 09:16 Last Admin: 05/09/16 13:25 Dose: Not Given Cyanocobalamin (Vitamin B12) 1,000 mcg IM ONETIME ONE Stop: 05/11/16 09:01 Last Admin: 05/11/16 09:53 Dose: 1,000 mcg Cyclobenzaprine HCl (Flexeril) 10 mg PO Q6H PRN PRN Reason: Muscle Spasm Last Admin: 05/13/16 06:22 Dose: 10 mg Dexamethasone (Dexamethasone) Confirm Administered Dose 4 mg .ROUTE .STK-MED ONE Stop: 05/09/16 08:37 Dexamethasone (Dexamethasone) Confirm Administered Dose 4 mg .ROUTE .STK-MED ONE Stop: 05/14/16 07:44 Dexamethasone (Dexamethasone) Confirm Administered Dose 4 mg .ROUTE .STK-MED ONE Stop: 05/19/16 12:14 Diatrizoate Meglum/Diatrizoate Sod (Gastrografin 37%) 30 ml PO . DIRECTED [facility] [place] Stop: 05/13/16 19:46 Last Admin: 05/13/16 19:33 Dose: 30 mg Diphenhydramine HCl (Benadryl) 25 mg IVPUSH Q6H PRN PRN Reason: ITCHING Diphenoxylate HCl/Atropine (Lomotil 0.025-2.5 Mg) 1 tab PO ONETIME ONE Stop: 05/12/16 10:36 Last Admin: 05/12/16 10:55 Dose: 1 tab Diphenoxylate HCl/Atropine (Lomotil 0.025-2.5 Mg) 1 tab PO Q6H PRN PRN Reason: Diarrhea Edrophonium Chloride (Enlon) Confirm Administered Dose 150 mg .ROUTE .STK-MED ONE Stop: 05/14/16 10:59 Edrophonium Chloride (Enlon) Confirm Administered Dose 150 mg .ROUTE .STK-MED ONE Stop: 05/19/16 14:23 Fentanyl (Sublimaze) Confirm Administered Dose 500 mcg .ROUTE .STK-MED ONE Stop: 05/09/16 08:37 Fentanyl (Sublimaze) Confirm Administered Dose 100 mcg .ROUTE .STK-MED ONE Stop: 05/09/16 08:39 Fentanyl (Duragesic) 12 mcg TRDERM Q72H [facility] [place] Last Admin: 05/13/16 13:15 Dose: Not Given Fentanyl (Sublimaze) Confirm Administered Dose 250 mcg .ROUTE .STK-MED ONE Stop: 05/14/16 07:44 Fentanyl (Duragesic) 25 mcg TRDERM Q72H [facility] [place] Last Admin: 05/14/16 16:58 Dose: Not Given Fentanyl (Sublimaze) Confirm Administered Dose 100 mcg .ROUTE .STK-MED ONE Stop: 05/17/16 07:22 Fentanyl (Sublimaze) Confirm Administered Dose 250 mcg .ROUTE .STK-MED ONE Stop: 05/19/16 12:13 Fentanyl (Sublimaze) Confirm Administered Dose 100 mcg .ROUTE .STK-MED ONE Stop: 05/21/16 08:19 Furosemide (Lasix) 20 mg IVPUSH ONETIME ONE Stop: 05/13/16 18:01 Last Admin: 05/13/16 18:21 Dose: 20 mg Gabapentin (Neurontin) 300 mg PO ONETIME ONE Stop: 05/09/16 08:16 Last Admin: 05/09/16 07:53 Dose: 300 mg Gabapentin (Neurontin) 300 mg PO TID SARAHY Last Admin: 05/12/16 21:54 Dose: 300 mg Glycopyrrolate () Confirm Administered Dose 1 mg .ROUTE .STK-MED ONE Stop: 05/09/16 08:37 Glycopyrrolate () Confirm Administered Dose 1 mg .ROUTE .STK-MED ONE Stop: 05/14/16 07:44 Glycopyrrolate () Confirm Administered Dose 1 mg .ROUTE .ST-MED ONE Stop: 05/19/16 12:14 Heparin Sodium (Porcine) (Heparin Sodium) 5,000 units SUBCUT Q12H [facility] [place] Stop: 05/10/16 20:00 Last Admin: 05/10/16 06:23 Dose: 5,000 units Heparin Sodium (Porcine) (Heparin Sodium) 5,000 units SUBCUT Q12H [facility] [place] Heparin Sodium (Porcine) (Heparin Sodium) 5,000 units SUBCUT ONETIME ONE Stop: 05/10/16 17:01 Last Admin: 05/10/16 16:45 Dose: 5,000 units Heparin Sodium (Porcine) (Heparin Lock Flush 100 Units/Ml Syringe) 500 units FLUSH .STK-MED ONE Stop: 05/14/16 10:20 Last Admin: 05/14/16 10:19 Dose: 500 units Heparin Sodium (Porcine) (Heparin Lock Flush 100 Units/Ml Syringe) Confirm Administered Dose 500 units .ROUTE .STK-MED ONE Stop: 05/15/16 17:28 Last Admin: 05/15/16 19:22 Dose: Not Given Heparin Sodium (Porcine) (Heparin Lock Flush 100 Units/Ml Syringe) Confirm Administered Dose 500 units .ROUTE .STK-MED ONE Stop: 05/19/16 21:35 Last Admin: 05/19/16 21:50 Dose: 500 units Hydromorphone HCl (Dilaudid) 2 - 4 mg PO Q4H PRN PRN Reason: PAIN Last Admin: 05/14/16 02:12 Dose: 4 mg Hydromorphone HCl (Dilaudid Unload Associate 15 Mg In Ns 30 Ml) 0 mg IV ASDIRECTED PRN; Protocol PRN Reason: [employer] PAIN CONTROL Last Admin: 05/26/16 10:24 Dose: 15 mg Hydromorphone HCl (Dilaudid) 2 mg PO Q3H PRN PRN Reason: Pain (moderate 4-6) Last Admin: 05/26/16 19:10 Dose: 2 mg Hydroxyzine HCl (Vistaril) 75 - 100 mg IM Q4H PRN PRN Reason: PAIN NOT CONTROLLED BY [employer] Last Admin: 05/13/16 02:48 Dose: 100 mg Hydroxyzine HCl (Vistaril) 100 mg IM Q4H PRN PRN Reason: PAIN NOT CONTROLLED BY [employer] Last Admin: 05/21/16 10:40 Dose: 100 mg Dextrose/Lactated Ringer's (Dextrose 5%-Lactated Ringers) 1,000 mls @ 100 mls/ hr IV ASDIRECTED SARAHY Last Admin: 05/09/16 07:55 Dose: 100 mls/hr Cefoxitin Sodium 2 gm/ Sodium (Chloride) 50 mls @ 100 mls/hr IV ONETIME ONE Stop: 05/09/16 09:44 Last Admin: 05/09/16 09:08 Dose: 100 mls/hr Fentanyl 2,500 mcg/ Sodium (Chloride) 250 mls @ 0 mls/hr EPIDUR TITRATE SARAHY; Titrate PRN Reason: Protocol Last Admin: 05/10/16 09:12 Dose: 10 ml/hr, 10 mls/hr Ketamine HCl 100 mg/ Sodium (Chloride) 100 mls @ 18 mls/hr IV ASDIRECTED SARAHY Stop: 05/09/16 13:00 Lactated Ringer's (Ringers, Lactated) Confirm Administered Dose 1,000 mls @ as directed .ROUTE .STK-MED ONE Stop: 05/09/16 08:37 Sodium Chloride (Normal Saline) Confirm Administered Dose 10 mls @ as directed .ROUTE .STK-MED ONE Stop: 05/09/16 08:39 Lidocaine HCl (Xylocaine-Mpf 1%) Confirm Administered Dose 2 mls @ as directed .ROUTE .[facility]-MED ONE Stop: 05/09/16 09:24 Lactated Ringer's (Ringers, Lactated) Confirm Administered Dose 1,000 mls @ as directed .ROUTE .K-MED ONE Stop: 05/09/16 11:10 Lactated Ringer's (Ringers, Lactated) 500 mls @ 500 mls/hr IV .BOLUS ONE Stop: 05/09/16 14:59 Last Admin: 05/09/16 14:03 Dose: 500 mls/hr Dextrose/Lactated Ringer's (Dextrose 5%-Lactated Ringers) 1,000 mls @ 200 mls/ hr IV ASDIRECTED [facility] [place] Stop: 05/10/16 17:59 Last Admin: 05/10/16 15:05 Dose: 200 mls/hr Multivitamins/Minerals 10 ml/Thiamine HCl 200 mg/ Chromium/Copper/Manganese/ Seleni/Zn 1 ml/ Dextrose/Lactated Ringer's 1,013 mls @ 100 mls/hr IV DAILY@ 1600 [facility] [place] Last Admin: 05/14/16 16:33 Dose: Not Given Cefoxitin Sodium 2 gm/ Sodium (Chloride) 50 mls @ 100 mls/hr IV Q6H [facility] [place] Last Admin: 05/12/16 03:39 Dose: 100 mls/hr Acetaminophen 1,000 mg/ Premix 100 mls @ 400 mls/hr IV Q6H [facility] [place] Stop: 05/10/16 04:14 Last Admin: 05/10/16 04:19 Dose: 400 mls/hr Ketamine HCl 100 mg/ Sodium (Chloride) 101 mls @ as directed IV .STK-MED ONE Stop: 05/09/16 09:46 Dextrose/Lactated Ringer's (Dextrose 5%-Lactated Ringers) 1,000 mls @ 100 mls/ hr IV ASDIRECTED [facility] [place] Last Admin: 05/13/16 02:59 Dose: 100 mls/hr Magnesium Sulfate 2 gm/ Sodium (Chloride) 54 mls @ 27 mls/hr IV ONETIME ONE Stop: 05/13/16 11:59 Last Admin: 05/13/16 10:01 Dose: 27 mls/hr Magnesium Sulfate 2 gm/ Premix 50 mls @ 25 mls/hr IV Q6H [facility] [place] Stop: 05/15/16 05:59 Last Admin: 05/16/16 09:03 Dose: Not Given Potassium Phosphate 20 mmole/ (Sodium Chloride) 256.6667 mls @ 85 mls/hr IV Q3H [facility] [place] Stop: 05/13/16 18:59 Last Admin: 05/13/16 19:49 Dose: 85 mls/hr Dextrose/Lactated Ringer's (Dextrose 5%-Lactated Ringers) 1,000 mls @ 80 mls/ hr IV ASDIRECTED [facility] [place] Stop: 05/14/16 14:29 Last Admin: 05/13/16 18:20 Dose: 25 mls/hr Meropenem 500 mg/ Sodium (Chloride) 50 mls @ 100 mls/hr IV ONETIME ONE Stop: 05/13/16 18:29 Last Admin: 05/13/16 18:28 Dose: 100 mls/hr Sodium Chloride (Normal Saline) 70 mls @ 3 mls/sec IV ASDIRECTED [facility] [place] Last Admin: 05/13/16 19:22 Dose: 3 mls/sec Meropenem 500 mg/ Sodium (Chloride) 50 mls @ 100 mls/hr IV Q6H [facility] [place] Last Admin: 05/23/16 10:20 Dose: 100 mls/hr Aztreonam 1 gm/ Sodium (Chloride) 50 mls @ 100 mls/hr IV Q8HR [facility] [place] Last Admin: 05/14/16 05:39 Dose: 100 mls/hr Aztreonam/Dextrose 1 gm/ (Premix) 50 mls @ 100 mls/hr IV Q8H [facility] [place] Last Admin: 05/21/16 14:02 Dose: 100 mls/hr Sodium Chloride (Normal Saline) Confirm Administered Dose 10 mls @ as directed .ROUTE .STK-MED ONE Stop: 05/14/16 08:52 Sodium Chloride (Normal Saline) Confirm Administered Dose 10 mls @ as directed .ROUTE .STK-MED ONE Stop: 05/14/16 09:28 Lactated Ringer's (Ringers, Lactated) Confirm Administered Dose 1,000 mls @ as directed .ROUTE .STK-MED ONE Stop: 05/14/16 09:34 Multivitamins/Minerals 10 ml/Chromium/Copper/Manganese/Seleni/Zn 1 ml/ Amino Ac/ Electrol/Dextrose/Calcium 1,011 mls @ 82 mls/hr IV .BY DURATION [facility] [place] Stop: 05/16/16 10:59 Last Admin: 05/15/16 15:31 Dose: 82 mls/hr Amino Ac/Electrol/Dextrose/Calcium (Clinimix E 07/25) 1,000 mls @ 82 mls/hr IV .BY DURATION [facility] [place] Stop: 05/16/16 10:59 Last Admin: 05/16/16 03:41 Dose: 82 mls/hr Lactated Ringer's (Ringers, Lactated) 1,000 mls @ 100 mls/hr IV ASDIRECTED [facility] [place] Last Admin: 05/20/16 03:16 Dose: 100 mls/hr Acetaminophen 1,000 mg/ Premix 100 mls @ 400 mls/hr IV Q6H [facility] [place] Stop: 05/15/16 10:14 Last Admin: 05/15/16 10:12 Dose: 400 mls/hr Albumin Human (Flexbumin 25%) 50 mls @ 50 mls/hr IV Q24H [facility] [place] Stop: 05/23/16 23:00 Last Admin: 05/23/16 09:14 Dose: 50 mls/hr Albumin Human (Flexbumin 25%) 50 mls @ 50 mls/hr IV Q24H [facility] [place] Stop: 05/23/16 23:00 Last Admin: 05/23/16 10:19 Dose: 50 mls/hr Albumin Human (Flexbumin 25%) 50 mls @ 50 mls/hr IV Q24H [facility] [place] Stop: 05/23/16 23:00 Last Admin: 05/23/16 12:05 Dose: 50 mls/hr Albumin Human (Flexbumin 25%) 50 mls @ 50 mls/hr IV Q24H [facility] [place] Stop: 05/23/16 23:00 Last Admin: 05/23/16 11:09 Dose: 50 mls/hr Potassium Phosphate 15 mmole/Lidocaine HCl 2 ml/ Sodium Chloride 157 mls @ 53 mls/hr IV Q3H [facility] [place] Stop: 05/15/16 15:58 Last Admin: 05/15/16 13:04 Dose: 53 mls/hr Multivitamins/Minerals 10 ml/Chromium/Copper/Manganese/Seleni/Zn 1 ml/ Amino Ac/ Electrol/Dextrose/Calcium 1,011 mls @ 82 mls/hr IV .BY DURATION [facility] [place] Stop: 05/23/16 14:30 Last Admin: 05/22/16 16:20 Dose: 82 mls/hr Amino Ac/Electrol/Dextrose/Calcium (Clinimix E 15) 1,000 mls @ 82 mls/hr IV .BY DURATION [facility] [place] Stop: 05/23/16 14:30 Last Admin: 05/23/16 03:51 Dose: 82 mls/hr Potassium Phosphate 15 mmole/ (Sodium Chloride) 155 mls @ 55 mls/hr IV Q3H [facility] Stop: 05/16/16 16:50 Last Admin: 05/16/16 17:27 Dose: 55 mls/hr Levofloxacin/Dextrose 750 mg/ (Premix) 150 mls @ 100 mls/hr IV Q24H [facility] [place] Last Admin: 05/21/16 11:17 Dose: 100 mls/hr Vancomycin HCl 1.3 gm/ Sodium (Chloride) 250 mls @ 167 mls/hr IV ONETIME ONE Stop: 05/17/16 14:29 Last Admin: 05/17/16 13:18 Dose: 167 mls/hr Vancomycin HCl 1 gm/ Sodium (Chloride) 250 mls @ 167 mls/hr IV Q12H [facility] [place] Last Admin: 05/19/16 00:30 Dose: 167 mls/hr Sodium Chloride (Normal Saline) 70 mls @ 3 mls/sec IV ASDIRECTED [facility] [place] Stop: 05/19/16 08:30 Lactated Ringer's (Ringers, Lactated) Confirm Administered Dose 1,000 mls @ as directed .ROUTE .STK-MED ONE Stop: 05/19/16 13:23 Sodium Chloride (Normal Saline) Confirm Administered Dose 10 mls @ as directed .ROUTE .STK-MED ONE Stop: 05/19/16 13:31 Vancomycin HCl 1 gm/ Sodium (Chloride) 250 mls @ 167 mls/hr IV Q8H [facility] [place] Last Admin: 05/21/16 00:14 Dose: 167 mls/hr Fluconazole/Sodium Chloride (400 mg/ Premix) 200 mls @ 100 mls/hr IV Q24H [facility] [place] Last Admin: 05/23/16 08:11 Dose: 100 mls/hr Vancomycin HCl 1.1 gm/ Sodium (Chloride) 250 mls @ 167 mls/hr IV Q8H [facility] [place] Stop: 05/21/16 12:00 Last Admin: 05/21/16 09:50 Dose: 167 mls/hr Vancomycin HCl 1.1 gm/ Sodium (Chloride) 250 mls @ 167 mls/hr IV Q8H [facility] [place] Last Admin: 05/22/16 09:28 Dose: 167 mls/hr Acetaminophen 1,000 mg/ Premix 100 mls @ 400 mls/hr IV Q6H PRN PRN Reason: Fever Stop: 05/22/16 21:01 Last Admin: 05/22/16 16:11 Dose: 400 mls/hr Linezolid 600 mg/ Premix 300 mls @ 300 mls/hr IV Q12H [facility] [place] Last Admin: 05/27/16 12:01 Dose: 300 mls/hr Gentamicin Sulfate 360 mg/ (Sodium Chloride) 159 mls @ 106 mls/hr IV Q24H [facility] [place] Last Admin: 05/22/16 14:13 Dose: 106 mls/hr Acetaminophen 1,000 mg/ Premix 100 mls @ 400 mls/hr IV Q6H PRN PRN Reason: Pain/Fever Stop: 05/23/16 22:01 Last Admin: 05/23/16 21:13 Dose: 400 mls/hr Gentamicin Sulfate 420 mg/ (Sodium Chloride) 160.5 mls @ 107 mls/hr IV Q24H [facility] [place] Last Admin: 05/25/16 13:29 Dose: 107 mls/hr Multivitamins/Minerals 10 ml/Chromium/Copper/Manganese/Seleni/Zn 1 ml/ Amino Ac/ Electrol/Dextrose/Calcium 1,011 mls @ 82 mls/hr IV .BY DURATION [facility] [place] Stop: 05/28/16 18:00 Last Admin: 05/27/16 19:46 Dose: 82 mls/hr Amino Ac/Electrol/Dextrose/Calcium (Clinimix E 5/15) 1,000 mls @ 82 mls/hr IV .BY DURATION [facility] [place] Stop: 05/28/16 18:00 Last Admin: 05/28/16 09:38 Dose: 82 mls/hr Acetaminophen 1,000 mg/ Premix 100 mls @ 400 mls/hr IV Q6H PRN PRN Reason: Pain Stop: 05/25/16 06:39 Last Admin: 05/25/16 00:27 Dose: 400 mls/hr Acetaminophen 1,000 mg/ Premix 100 mls @ 400 mls/hr IV Q6H PRN PRN Reason: Pain Stop: 05/26/16 07:39 Last Admin: 05/26/16 05:14 Dose: 400 mls/hr Ciprofloxacin/Dextrose 400 mg/ (Premix) 200 mls @ 200 mls/hr IV Q12H [facility] [place] Last Admin: 05/28/16 10:24 Dose: 200 mls/hr Acetaminophen 1,000 mg/ Premix 100 mls @ 400 mls/hr IV Q6H PRN PRN Reason: Pain Stop: 05/27/16 19:56 Last Admin: 05/26/16 20:17 Dose: 400 mls/hr Ampicillin Sodium 2 gm/ Sodium (Chloride) 100 mls @ 200 mls/hr IV Q6H [facility] [place] Last Admin: 05/28/16 09:59 Dose: 200 mls/hr Acetaminophen 1,000 mg/ Premix 100 mls @ 400 mls/hr IV NOW ONE Stop: 05/27/16 23:56 Last Admin: 05/28/16 00:05 Dose: 400 mls/hr Sodium Chloride (Normal Saline) 70 mls @ 3 mls/sec IV ASDIRECTED ONE Stop: 05/28/16 05:42 Last Admin: 05/28/16 09:53 Dose: Not Given Acetaminophen 1,000 mg/ Premix 100 mls @ 400 mls/hr IV Q6H [facility] [place] Stop: 05/29/16 04:14 Last Admin: 05/29/16 03:00 Dose: 400 mls/hr Multivitamins/Minerals 10 ml/Chromium/Copper/Manganese/Seleni/Zn 1 ml/ Amino Ac/ Electrol/Dextrose/Calcium 1,011 mls @ 82 mls/hr IV .BY DURATION [facility] [place] Last Admin: 05/30/16 00:20 Dose: 82 mls/hr Amino Ac/Electrol/Dextrose/Calcium (Clinimix E 5/15) 1,000 mls @ 82 mls/hr IV .BY DURATION [facility] [place] Last Admin: 05/30/16 16:44 Dose: Not Given Acetaminophen 1,000 mg/ Premix 100 mls @ 400 mls/hr IV Q6H [facility] [place] Stop: 05/30/16 04:14 Last Admin: 05/30/16 03:57 Dose: 400 mls/hr Multivitamins/Minerals 10 ml/Chromium/Copper/Manganese/Seleni/Zn 1 ml/ Amino Ac/ Electrol/Dextrose/Calcium 1,011 mls @ 40 mls/hr IV .BY DURATION [facility] [place] Stop: 05/31/16 11:55 Last Admin: 05/30/16 13:31 Dose: 40 mls/hr Amino Ac/Electrol/Dextrose/Calcium (Clinimix E 5/15) 1,000 mls @ 40 mls/hr IV .BY DURATION [facility] [place] Stop: 05/31/16 11:55 Ibuprofen (Motrin) 600 mg PO Q6H [facility] [place] Last Admin: 05/13/16 05:24 Dose: Not Given Inulin (Fiber Choice) 4.5 gm PO BID [facility] [place] Last Admin: 05/16/16 09:03 Dose: Not Given Iohexol (Omnipaque-300) 50 ml PO .ASDIRECTED [facility] [place] Last Admin: 05/10/16 03:46 Dose: 50 ml Iohexol (Omnipaque-300) 10 ml PO . DIRECTED PRN PRN Reason: RADIOLOGY EXAM Stop: 05/20/16 08:30 Last Admin: 05/19/16 07:44 Dose: 10 ml Iopamidol (Isovue-300 (61%)) 100 ml IV . DIRECTED [facility] [place] Last Admin: 05/13/16 19:22 Dose: 90 ml Iopamidol (Isovue-300 (61%)) 90 ml IV . DIRECTED PRN PRN Reason: RADIOLOGY EXAM Stop: 05/19/16 08:30 Last Admin: 05/19/16 07:44 Dose: 90 ml Iopamidol (Isovue-300 (61%)) 100 ml IV . DIRECTED PRN PRN Reason: RADIOLOGY EXAM Stop: 05/28/16 05:42 Last Admin: 05/28/16 06:14 Dose: 100 ml Ketamine HCl (Ketalar) 30 mg IV ASDIRECTED [facility] [place] Stop: 05/09/16 11:00 Ketamine HCl (Ketalar) 30 mg IV .STK-MED ONE Stop: 05/09/16 09:46 Ketamine HCl (Ketalar) Confirm Administered Dose 500 mg .ROUTE .STK-MED ONE Stop: 05/14/16 08:51 Lactobacillus Rhamnosus (Culturelle) 2 cap PO BID [facility] [place] Last Admin: 05/16/16 09:04 Dose: Not Given Lidocaine/Epinephrine (Xylocaine 1% With Epinephrine 1:100,000) Confirm Administered Dose 50 ml .ROUTE .STK-MED ONE Stop: 05/11/16 06:49 Last Admin: 05/11/16 09:09 Dose: 32 ml Lidocaine/Epinephrine (Xylocaine 1% With Epinephrine 1:100,000) Confirm Administered Dose 50 ml .ROUTE .STK-MED ONE Stop: 05/17/16 06:47 Last Admin: 05/17/16 08:07 Dose: 20 ml Lidocaine/Epinephrine (Xylocaine 1% With Epinephrine 1:100,000) Confirm Administered Dose 50 ml .ROUTE .STK-MED ONE Stop: 05/21/16 06:21 Last Admin: 05/21/16 08:48 Dose: 10 ml Meperidine HCl (Demerol) 50 mg IM ASDIRECTED PRN PRN Reason: PAIN Stop: 05/10/16 14:45 Meropenem (Merrem) Confirm Administered Dose 500 mg .ROUTE .STK-MED ONE Stop: 05/09/16 08:14 Last Admin: 05/09/16 10:24 Dose: 500 mg Meropenem (Merrem) Confirm Administered Dose 500 mg .ROUTE .STK-MED ONE Stop: 05/11/16 06:49 Last Admin: 05/11/16 09:10 Dose: 500 mg Meropenem (Merrem) Confirm Administered Dose 500 mg .ROUTE .STK-MED ONE Stop: 05/14/16 07:31 Last Admin: 05/14/16 10:19 Dose: 500 mg Meropenem (Merrem) Confirm Administered Dose 500 mg .ROUTE .STK-MED ONE Stop: 05/14/16 10:03 Last Admin: 05/14/16 10:19 Dose: 500 mg Meropenem (Merrem) Confirm Administered Dose 500 mg .ROUTE .STK-MED ONE Stop: 05/17/16 06:46 Last Admin: 05/17/16 08:12 Dose: 500 mg Meropenem (Merrem) Confirm Administered Dose 500 mg .ROUTE .STK-MED ONE Stop: 05/19/16 12:10 Last Admin: 05/19/16 13:30 Dose: 500 mg Meropenem (Merrem) Confirm Administered Dose 500 mg .ROUTE .STK-MED ONE Stop: 05/19/16 13:31 Last Admin: 05/19/16 14:25 Dose: 500 mg Meropenem (Merrem) Confirm Administered Dose 500 mg .ROUTE .STK-MED ONE Stop: 05/21/16 06:20 Last Admin: 05/21/16 08:51 Dose: 500 mg Metoclopramide HCl (Reglan) 10 mg IV Q6H [facility] [place] Last Admin: 05/14/16 08:03 Dose: 10 mg Midazolam HCl (Versed 1 Mg/Ml) Confirm Administered Dose 2 mg .ROUTE .STK-MED ONE Stop: 05/14/16 07:44 Midazolam HCl (Versed 1 Mg/Ml) Confirm Administered Dose 2 mg .ROUTE .STK-MED ONE Stop: 05/17/16 07:22 Midazolam HCl (Versed 1 Mg/Ml) Confirm Administered Dose 2 mg .ROUTE .STK-MED ONE Stop: 05/19/16 12:13 Midazolam HCl (Versed 1 Mg/Ml) Confirm Administered Dose 2 mg .ROUTE .STK-MED ONE Stop: 05/21/16 08:19 Naloxone HCl (Narcan) 0.4 mg IV ASDIRECTED PRN PRN Reason: ITCHING Neostigmine Methylsulfate (Neostigmine) Confirm Administered Dose 5 mg .ROUTE .STK-MED ONE Stop: 05/09/16 08:37 Neostigmine Methylsulfate (Neostigmine) Confirm Administered Dose 5 mg .ROUTE .STK-MED ONE Stop: 05/14/16 07:44 Neostigmine Methylsulfate (Neostigmine) Confirm Administered Dose 5 mg .ROUTE .ST-MED ONE Stop: 05/19/16 12:14 Scopolamine Patch (Check) 1 each TOP DAILY [facility] [place] Last Admin: 05/16/16 09:03 Dose: Not Given Check Fentanyl Patch (Daily) 1 each TOP DAILY [facility] [place] Last Admin: 05/15/16 09:06 Dose: Not Given Non-Formulary Medication (Total Parenteral Nutrition, Central) 1,000 ml .XX .Continue Order [facility] [place] Stop: 05/24/16 16:00 Non-Formulary Medication (Total Parenteral Nutrition, Central) 1,000 ml .XX .Continue Order [facility] [place] Stop: 05/25/16 16:00 Non-Formulary Medication (Total Parenteral Nutrition, Central) 1,000 ml .XX .Continue Order [facility] [place] Stop: 05/26/16 16:00 Non-Formulary Medication (Total Parenteral Nutrition, Central) 1,000 ml .XX .Continue Order [facility] [place] Stop: 05/27/16 14:00 Non-Formulary Medication (Total Parenteral Nutrition, Central) 1,000 ml .XX .Continue Order [facility] [place] Stop: 05/28/16 14:00 Non-Formulary Medication (Total Parenteral Nutrition, Central) 1,000 ml .XX .Continue Order [facility] [place] Stop: 05/29/16 14:00 Non-Formulary Medication (Total Parenteral Nutrition, Central) 1,000 ml .XX .Continue Order [facility] [place] Stop: 05/30/16 16:00 Ondansetron HCl (Zofran) Confirm Administered Dose 4 mg .ROUTE .STK-MED ONE Stop: 05/09/16 08:37 Ondansetron HCl (Zofran) Confirm Administered Dose 4 mg .ROUTE .STK-MED ONE Stop: 05/14/16 07:44 Ondansetron HCl (Zofran) Confirm Administered Dose 4 mg .ROUTE .STK-MED ONE Stop: 05/19/16 12:14 Pantoprazole Sodium (Protonix Iv) 40 mg IVPUSH Q24H [facility] [place] Last Admin: 05/11/16 16:53 Dose: 40 mg Pantoprazole Sodium (Protonix) 40 mg PO Q24H [facility] [place] Last Admin: 05/13/16 16:59 Dose: 40 mg Pantoprazole Sodium (Protonix Iv) 40 mg IV Q24H [facility] [place] Last Admin: 05/26/16 15:51 Dose: 40 mg Phenylephrine HCl (Yan-Synephrine) Confirm Administered Dose 10 mg .ROUTE .STK- MED ONE Stop: 05/14/16 09:27 Propofol (Diprivan 20 Ml) Confirm Administered Dose 200 mg .ROUTE .STK-MED ONE Stop: 05/09/16 08:37 Propofol (Diprivan 20 Ml) Confirm Administered Dose 200 mg .ROUTE .STK-MED ONE Stop: 05/11/16 07:00 Propofol (Diprivan 20 Ml) Confirm Administered Dose 200 mg .ROUTE .STK-MED ONE Stop: 05/14/16 07:44 Propofol (Diprivan 20 Ml) Confirm Administered Dose 200 mg .ROUTE .STK-MED ONE Stop: 05/17/16 07:22 Propofol (Diprivan 20 Ml) Confirm Administered Dose 200 mg .ROUTE .STK-MED ONE Stop: 05/19/16 12:14 Propofol (Diprivan 20 Ml) Confirm Administered Dose 200 mg .ROUTE .STK-MED ONE Stop: 05/21/16 08:19 Rocuronium Mascot (Zemuron) Confirm Administered Dose 100 mg .ROUTE .STK-MED ONE Stop: 05/09/16 08:37 Rocuronium Mascot (Zemuron) Confirm Administered Dose 50 mg .ROUTE .STK-MED ONE Stop: 05/14/16 07:44 Rocuronium Mascot (Zemuron) Confirm Administered Dose 50 mg .ROUTE .STK-MED ONE Stop: 05/19/16 12:14 Scopolamine (Transderm-Scop) 1.5 mg TOP Q72H [facility] Stop: 05/12/16 06:00 Last Admin: 05/09/16 07:53 Dose: 1.5 mg Scopolamine (Transderm-Scop) Confirm Administered Dose 1.5 mg .ROUTE .STK-MED ONE Stop: 05/09/16 08:37 Scopolamine (Transderm-Scop) 1.5 mg TOP ASDIRECTED [facility] Stop: 05/12/16 16:00 Scopolamine (Transderm-Scop) 1.5 mg TOP Q72H [facility] Last Admin: 05/12/16 09:17 Dose: 1.5 mg Sodium Chloride (Saline Flush) 10 ml FLUSH ONETIME ONE Stop: 05/13/16 18:10 Last Admin: 05/13/16 19:22 Dose: 10 ml Sodium Chloride (Saline Flush) 10 ml FLUSH . DIRECTED PRN PRN Reason: [id number] EXAM Stop: 05/28/16 05:42 Last Admin: 05/28/16 06:14 Dose: 10 ml Succinylcholine Chloride (Succinylcholine In Ns Pf) Confirm Administered Dose 200 mg .ROUTE .STK-MED ONE Stop: 05/09/16 08:37 Succinylcholine Chloride (Succinylcholine In Ns Pf) Confirm Administered Dose 200 mg .ROUTE .STK-MED ONE Stop: 05/14/16 07:44 Succinylcholine Chloride (Succinylcholine In Ns Pf) Confirm Administered Dose 200 mg .ROUTE .STK-MED ONE Stop: 05/19/16 12:14 Vancomycin HCl (Vancomycin) 1 gm IV .PHARMACY TO DOSE [facility] - Exam Quality Assessment: DVT prophylaxis General: alert, oriented, cooperative, no acute distress Lungs: Clear to auscultation, Normal respiratory effort Cardiovascular: Regular Rate, Regular Rhythm, No Murmurs Abdomen: bowel sounds present, soft, no distension, tenderness. No: rigidity, rebound, guarding Extremities: no edema Skin: warm, dry, intact Consult PN Assessment/Plan Procedures: Procedures ASSAY OF LACTIC ACID (03/04/16) ASSAY OF MAGNESIUM (04/07/16) ASSAY OF PHOSPHORUS (04/07/16) ASSAY THYROID STIM HORMONE (10/08/15) BLOOD TYPING SEROLOGIC ABO (04/14/15) BLOOD TYPING SEROLOGIC RH(D) (04/14/15) C-REACTIVE PROTEIN (04/07/16) COMPLETE CBC AUTOMATED (04/07/16) COMPLETE CBC W/AUTO DIFF WBC (04/07/16) COMPREHEN METABOLIC PANEL (04/07/16) CT ABD & PELV W/CONTRAST (03/04/16) CULTURE SCREEN ONLY (11/10/15) ELECTROCARDIOGRAM TRACING (04/14/15) EMERGENCY DEPT VISIT (04/07/16) HYDRATE IV INFUSION ADD-ON (04/07/16) MEASURE BLOOD OXYGEN LEVEL (01/01/16) METABOLIC PANEL TOTAL CA (03/04/16) PT EVALUATION (11/10/15) RBC ANTIBODY SCREEN (04/14/15) ROUTINE VENIPUNCTURE (04/07/16) SPECIAL STAINS GROUP 2 (04/14/15) THER/PROPH/DIAG INJ IV PUSH (04/07/16) THER/PROPH/DIAG IV INF ADDON (03/04/16) THER/PROPH/DIAG IV INF INIT (03/04/16) THERAPEUTIC ACTIVITIES (11/10/15) TISSUE EXAM BY PATHOLOGIST (01/01/16) TISSUE EXAM BY PATHOLOGIST (01/01/16) TISSUE EXAM BY PATHOLOGIST (04/14/15) TISSUE EXAM BY PATHOLOGIST (04/14/15) TX/PRO/DX INJ NEW DRUG ADDON (04/07/16) URINALYSIS AUTO W/SCOPE (04/07/16) X-RAY EXAM OF ABDOMEN (04/07/16) X-RAY EXAM SERIES ABDOMEN (04/07/16) X-RAY UPPER GI DELAY W/O KUB (03/04/16) X-RAY UPPER GI&SMALL INTEST (04/07/16) Problem List Initiated/Reviewed/Updated: Yes Plan: Assessment and Plan - Abdominal abscesses with peritonitis secondary to JJ leak - status post exploratory laparotomy 05/14 and again because of splenic abscess. White blood cell count has normalized and she has remained afebrile. -additional postop cares per surgical team -TPN has been discontinued -Continue oral pain medications Intermittent Hypoxia - resolved Disposition-anticipate discharge to home tomorrow
[2016-06-01] MEDS: HYDROmorphone 2 MG Tab PO PRN ×3 (02:25→11:59)
[2016-06-01] MEDS: Acetaminophen 325 MG Tab PO SCH ×2 (05:20→10:16)
[2016-06-01] MEDS: Piperacillin/Tazobactam/Dext 3.375 GM in Premix Bag 1 BAG IV SCH ×2 (05:20→11:21)
[2016-06-01] MEDS: Ondansetron 4 MG/2 ML SDV IVPUSH PRN ×2 (06:41→12:08)
[2016-06-01] MEDS ORDERED: Meperidine PF 100 MG/ML Syringe IM ONE ×2 (07:56→10:30)
[2016-06-01] MEDS ORDERED: hydrOXYzine HCl 50 MG/ML SDV IM ONE ×2 (07:56→10:30)
[2016-06-01] MEDS ORDERED: Amoxicillin 250 MG/5 ML Susp 100 ML Bottle PO SCH (08:00)
[2016-06-01] MEDS ORDERED: Cyanocobalamin (Vitamin B12) 1,000 MCG/ML SDV IM ONE (09:00)
[2016-06-01] MEDS ORDERED: Fluconazole 100 MG Tab PO SCH (09:00)
[2016-06-01] MEDS: Lubiprostone 24 MCG Cap PO SCH (09:04)
[2016-06-01] MEDS: Lactobacillus Rhamnosus GG (Probiotic) Cap PO SCH (09:05)
[2016-06-01] MEDS: Inulin 1.5 GM Chewable Tab PO SCH (09:07)
[2016-06-01] MEDS: Atropine/Diphenoxylate 0.025-2.5 MG Tab PO SCH ×2 (09:11→14:18)
[2016-06-01 12:12] VITALS: BP 104/63
--- NOTE | 2016-06-02 15:52 | DISCH ---
ADMISSION DIAGNOSES: 1. Abdominal pain. 2. Arthropathy. 3. Asthma. 4. Bariatric surgery status B12 deficiency. 5. 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 6. Coccydynia, coccygeal pain. 7. Complex regional pain syndrome type 2 upper. 8. Degenerative joint disease L5-S1. 9. Dizziness. 10.Encounter for specific cardiac device in situ. 11.Exercise induced asthma. 12.Impaired functional mobility balance and endurance. 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 15.Anterior pituitary hyperfunction. 16.Vitamin B complex. 17.Postsurgical non absorption prolactinoma. 18.Pyogenic granuloma. 19.Slow transit constipation and systemic lupus erythematosus. DISCHARGE DIAGNOSES: 1. Exploratory laparotomy, total abdominal colectomy with ileorectal anastomosis of 9, revision of small bowel component of the [place]-en-Y gastric bypass, embolectomy ablation of focal area, pelvic endometriosis with pelvic sidewall placement of Interceed mesh to displace small bowel from pelvic and abdominal wall to limit recurrent adhesive formation on 05/09/2016. 2. Delayed primary closure 05/11/2016. HISTORY: Carolyn is a 55-year-old female with diffuse trinh colon and slow transit constipation which has been refractory to medical management. After preoperative evaluation and discussion of possible risks and possible complications, she wished to proceed with surgical procedure. Postop diagnosis of that procedure was: 1. Diffuse trinh colon associated with slow transit refractory to medical management, contracted chronically painful umbilicus, florid inflammatory adhesions to the distal [place] limb, and jejunostomy and focal area of the pelvic endometriosis. 2. insertion of left subclavian vein triple-lumen catheter exploratory laparotomy with drainage of intraabdominal abscess and irrigation of diffuse peritonitis, small bowel resection, and separate jejunojejunostomy to re-establish the [place] limb anatomy for leak at the jejunojejunostomy with focal abscess in the left upper quadrant and diffuse peritonitis involving the lower 2/3rd of abdomen and pelvis, and limited peripheral venous access. Indications: Carolyn is status post total abdominal colectomy with ileorectal anastomosis for slow transit constipation. She became completely refractory to medical management at the time of the surgery, she had extensive adhesions involving the small bowel, and they were resected and secondary anastomosis to re-establish the [place]-en-Y. She developed a leak of what appears to be a GI content from the left upper quadrant drain. After preoperative evaluation and discussion of possible risks and possible complications, she wished to proceed with surgical procedure. 3. Exploratory laparotomy with drainage of left subphrenic abscess, splenectomy and drainage of abscess underlying the anterior abdominal wall for left subphrenic abscess associated with splenic abscess and intraabdominal abscess underlying the anterior abdominal wall. Indications: Carolyn had a persistent smoldering course with persistent fevers and elevated white count and general failure to improve. After evaluation and discussion of possible risks and possible complications, she wished to proceed with surgical procedure. This surgery was done on 05/19/2016 with delayed primary closure on 05/21/2016. 4. Low hemoglobin with a total of 4 units of packed red blood cells throughout the hospitalization. Throughout the hospitalization, Carolyn was treated with TPN. Her lab values were monitored closely and she was treated with appropriate antibiotics. She gradually improved and started eating, over time her TPN was decreased. She had multiple LACIE drains and they all were able to be removed except for one in the right mid quadrant. Carolyn was able to be discharged on 06/01/2016. PHYSICAL EXAMINATION: GENERAL: Carolyn Hanks is a 55-year-old female. Height is 5 feet 6 inches. Last recorded weight was 133 pounds and 15 ounces. VITAL SIGNS: TPR 97.5, 67, 18. Blood pressure 104/63. HEENT: Negative. NECK: Supple. HEART: Regular rate and rhythm. LUNGS: Clear. ABDOMEN: She has a midline incision which is Steri-Stripped and a left upper quadrant incision which was Steri-Stripped, 4x4s over LACIE drain sites and she has a one on the right remaining which is draining a reyes colored drainage. EXTREMITIES: Without peripheral edema. SKIN: Without rash. DISPOSITION: Discharged to home. CONDITION: Stable and improving. FOLLOWUP APPOINTMENT: With Kit Duke MD on 06/08/2016 at 10:00 am. HOME MEDICATION: 1. Tylenol 650 mg q.6 hours p.r.n. pain #100. 2. Amoxicillin 250 mg per 5 mL, 2 teaspoons t.i.d. for 10 days. 3. Lomotil 1 tablet oral 3 times a day, scheduled #50. 4. Zinc oxide 1 g topical to affected area. 5. Diflucan 100 mg oral daily #10. 6. Dilaudid 2 mg 1 to 2 every 4 hours p.r.n. pain #50. 7. Probiotic Culturelle two tablets twice daily #100. 8. She is to resume vitamin B12 1000 mcg IM as directed. 9. EpiPen 0.3 IM as directed p.r.n. allergic reaction. 10.Lidocaine 5%. 11.Lidoderm patch 700 mg transderm daily. 12.Multivitamin chewable 1 daily. 13.Zofran 4 mg ODT every 4 hours p.r.n. nausea. 14.Discontinue taking the MiraLAX. 15.Dulcolax tabs. 16.Senna Plus. 17.Amitiza. 18.Tramadol. DIET AFTER DISCHARGE: Step 4 gastric bypass diet. Drink 8 to 10 glasses of water a day. ACTIVITY: As tolerated. No lifting greater than 10 pounds for 4 weeks. Walk 8 times daily inside your home. Shower bathing, may shower. Notify provider if any fever, pain, swelling, redness, drainage, nausea, vomiting. Wound incision care; keep site clean and dry. Wear abdominal binder for 4 weeks. Strep empty and record LACIE drainage 4 times a day or as needed. SPECIAL INSTRUCTION: 1. Use incentive spirometer 10 times every hour while awake for 2 weeks. 2. If diarrhea improves, decrease Lomotil to 2 times daily and diarrhea gets worse she can increase Lomotil 4 times daily. 3. Fiber wafers take two a day by Alexus. 4. Record food and liquid intake and bring to clinic appointments.
--- NOTE | 2016-06-06 13:02 | OR ---
DATE OF PROCEDURE: 05/17/2016 PREOPERATIVE DIAGNOSIS: Open abdominal incision. POSTOPERATIVE DIAGNOSIS: Open abdominal incision. OPERATIVE PROCEDURE: Delayed primary closure of open abdominal incision. ANESTHESIA: Local plus IV sedation. INDICATIONS FOR PROCEDURE: The patient is status post subtotal colectomy in which there was some minute contamination of the subcutaneous tissue with GI content. Given this, she is felt to be high risk for a wound infection should primary closure be undertaken. The wound was packed open for a planned delayed primary closure at this time. Potential risks including bleeding and infection were reviewed, and the patient wishes to proceed. DETAILS OF PROCEDURE: The patient was taken to the operating room and placed in supine position. After IV sedation was administered, the operative dressing was taken down. The wound was inspected and found to be clean. The incision was then prepped and draped, anesthetized with 1% lidocaine, mixed with Marcaine and irrigated with meropenem-containing saline solution. A 10-Tongan round Valentino-Young drain was then placed through stab wound inferior incision. The incision was then closed with 2 layers of 3-0 Vicryl and 4-0 Vicryl stitch deep and murtaza for the skin. The drains were affixed with some 3-0 Vicryl stitch. The patient was taken to the recovery room in satisfactory condition. There were no evident complications. Kit Duke MD /[id number]
== END 2016-06-01 15:05 | disposition home health service (06) | DRG 329 ==
LOC: JP.MS 07:18 → JP.SDS 07:18 → EDSTATUS 08:45 → JP.2SS 12:45 → JP.ICU 05-14 12:30 → JP.MS 05-24 14:15
PROVIDERS: ADMIT Surgery; ATTEND Surgery
PROC: 0DBA0ZX Excision of Jejunum, Open Approach, Diagnostic (ICD-10-PCS; principal; 2016-05-09)
PROC: 0D5W0ZZ Destruction of Peritoneum, Open Approach (ICD-10-PCS; principal; 2016-05-09)
PROC: 0WBF0ZX Excision of Abdominal Wall, Open Approach, Diagnostic (ICD-10-PCS; principal; 2016-05-09)
PROC: 3E0M05Z Introduction of Adhesion Barrier into Peritoneal Cavity, Open Approach (ICD-10-PCS; principal; 2016-05-09)
PROC: 0DTE0ZZ Resection of Large Intestine, Open Approach (ICD-10-PCS; principal; 2016-05-09)
PROC: 0WQF0ZZ Repair Abdominal Wall, Open Approach (ICD-10-PCS; 2016-05-11)
PROC: 0DBA0ZX Excision of Jejunum, Open Approach, Diagnostic (ICD-10-PCS; 2016-05-14)
PROC: 0W9G0ZX Drainage of Peritoneal Cavity, Open Approach, Diagnostic (ICD-10-PCS; 2016-05-14)
PROC: 02H633Z Insertion of Infusion Device into Right Atrium, Percutaneous Approach (ICD-10-PCS; 2016-05-14)
PROC: 0W9G0ZX Drainage of Peritoneal Cavity, Open Approach, Diagnostic (ICD-10-PCS; 2016-05-19)
PROC: 0W9F0ZX Drainage of Abdominal Wall, Open Approach, Diagnostic (ICD-10-PCS; 2016-05-19)
PROC: 07TP0ZZ Resection of Spleen, Open Approach (ICD-10-PCS; 2016-05-19)
PROC: 30233N1 Transfusion of Nonautologous Red Blood Cells into Peripheral Vein, Percutaneous Approach (ICD-10-PCS; 2016-05-19)
PROC: 0WQF0ZZ Repair Abdominal Wall, Open Approach (ICD-10-PCS; 2016-05-21)
PROC: 30233N1 Transfusion of Nonautologous Red Blood Cells into Peripheral Vein, Percutaneous Approach (ICD-10-PCS; 2016-05-26)
DX: K59.01 Slow transit constipation (principal); K65.0 Generalized (acute) peritonitis; J18.9 Pneumonia, unspecified organism; K65.1 Peritoneal abscess; K59.39 Other megacolon; K91.2 Postsurgical malabsorption, not elsewhere classified; J95.812 Postprocedural air leak; K95.81 Infection due to other bariatric procedure; K91.3 Postprocedural intestinal obstruction; R17 Unspecified jaundice; L90.5 Scar conditions and fibrosis of skin; K66.0 Peritoneal adhesions (postprocedural) (postinfection); N80.3 Endometriosis of pelvic peritoneum; Z98.84 Bariatric surgery status; Z98.0 Intestinal bypass and anastomosis status; M32.9 Systemic lupus erythematosus, unspecified; E53.8 Deficiency of other specified B group vitamins; M19.90 Unspecified osteoarthritis, unspecified site; M54.9 Dorsalgia, unspecified; G89.29 Other chronic pain; Z86.73 Personal history of transient ischemic attack (TIA), and cerebral infarction without residual deficits; Z85.72 Personal history of non-Hodgkin lymphomas; B96.20 Unspecified Escherichia coli [E. coli] as the cause of diseases classified elsewhere; B96.89 Other specified bacterial agents as the cause of diseases classified elsewhere; B95.2 Enterococcus as the cause of diseases classified elsewhere; R41.0 Disorientation, unspecified; Y95 Nosocomial condition; D73.3 Abscess of spleen; Z48.1 Encounter for planned postprocedural wound closure; Z16.21 Resistance to vancomycin; R09.02 Hypoxemia; Z91.030 Bee allergy status; Z88.5 Allergy status to narcotic agent; Z88.8 Allergy status to other drugs, medicaments and biological substances; D64.9 Anemia, unspecified
CPT/HCPCS: 36415; 36430; 71010; 71010-26; 74177; 74177-26; 74240; 74240-26; 80048; 80053; 80170; 80202; 81001; 81003; 83735; 84075; 84100; 85025; 85027; 86850; 86900; 86901; 86920; 86922; 87040; 87070; 87075; 87077; 87186; 87205; 87493; 88305; 88307; 94667; 94762; A9270-GY; C9113; J0131; J0290; J0694; J0744; J1100; J1170; J1450; J1580; J1642; J1644; J1940; J1956; J2020; J2175; J2185; J2250; J2370; J2405; J2543; J2704; J2765; J3010; J3370; J3410; J3411; J3420; J3475; J3490; J7030; J7040; J7042; J7050; J7120; J7620; P9016; P9047; Q9963; Q9967; S0073

== ENCOUNTER 2016-09-12 11:39 | Inpatient (IN) | payer MEDICARE, OTHER ==
[2016-09-12] MEDS ORDERED: Naloxone 0.4 MG/ML SDV IV PRN (12:23)
[2016-09-12] MEDS ORDERED: HYDROmorphone/Normal Saline 15 MG/30 ML PCA IV PRN (12:23)
[2016-09-12] MEDS ORDERED: Acetaminophen 650 MG Supp RECTAL PRN (12:29)
[2016-09-12] MEDS ORDERED: Pantoprazole 40 MG Vial IV SCH (12:30)
[2016-09-12] MEDS ORDERED: Lidocaine 5% 700 MG Patch TRDERM PRN (12:32)
--- NOTE | 2016-09-12 12:52 | PCM.HP ---
[id number] Diagnosis/Problem Admission Diagnosis/Problem Abscess Source of Information: Patient History Limitations: Reports: No Limitations - History of Present Illness Initial Comments - Free Text/Narative: Caorlyn noticed on Monday - 09/10/16 she had a firm, tender area on her mid abdomen. She states the area is getting larger and more tender each day. She said the area has almost doubled in size the past 2 days. Running a low grade fever. No other associated signs and symptoms. Location: Reports: Abdomen Quality: Reports: Dull, Pressure Improves with: Reports: None Worsens with: Reports: Other (touching the area) Associated Symptoms: Reports: No Other Symptoms - Related Data Allergies/Adverse Reactions: Allergies Allergy/AdvReac Type Severity Reaction Status Date / Time codeine Allergy Unknown Cannot Verified 05/09/16 08:04 Remember hydrocodone Allergy Unknown Cannot Verified 05/09/16 08:04 Remember omeprazole Allergy Unknown Cannot Verified 05/16/16 09:32 Remember oxycodone Allergy Unknown Cannot Verified 05/09/16 08:04 Remember sucralfate [From Carafate] Allergy Unknown Cannot Verified 05/09/16 08:04 Remember venom-honey bee Allergy Cannot Verified 05/09/16 08:04 [bee venom (honey bee)] Remember Home Medications: Home Meds Cyanocobalamin (Vitamin B-12) [Cyanocobalamin Injection] 1 ml IM ASDIRECTED [History] EPINEPHrine [Epipen] 0.3 mg IM ASDIRECTED PRN 04/10/15 [History] Multivitamin with Minerals [Multivitamins with Minerals] 1 tab PO DAILY [History] Ondansetron [Zofran ODT] 4 mg PO Q4HR PRN #30 tab.dis 04/16/15 [Rx] Thiamine [Vitamin B-1] 100 mg IM ASDIRECTED 11/09/15 [History] Lidocaine 5% [Lidoderm 5%] 700 mg TRDERM DAILY patch 01/06/16 [Rx] Scopolamine [Transderm-Scop] 1.5 mg TRDERM Q72H #5 patch 01/06/16 [Rx] Acetaminophen 640 mg PO Q4H PRN 04/07/16 [History] Polyethylene Glycol 3350 [Miralax] 119 gm PO ASDIRECTED #238 powder 04/11/16 [Rx ] Acetaminophen [Tylenol] 650 mg PO Q6H PRN #100 tablet 06/01/16 [Rx] Amoxicillin [Amoxil 250 MG/5 ML Susp] 500 mg PO Q8H #300 ml 06/01/16 [Rx] Atropine/Diphenoxylate [Diphenoxylate-Atropine] 1 tab PO TID #50 tablet [Rx] Dimethicone/Zinc Oxide [Rash Relief-Zinc Oxide] 1 gm TOP ASDIRECTED PRN #0 bottle 06/01/16 [Rx] Fluconazole [Diflucan] 100 mg PO DAILY #10 tablet 06/01/16 [Rx] HYDROmorphone [Dilaudid] 2 - 4 mg PO Q4H PRN #50 tablet 06/01/16 [Rx] Lactobacillus Rhamnosus GG [Culturelle] 2 cap PO BID #100 cap 06/01/16 [Rx] Past Medical History HEENT History: Reports: None, Cataract, Other (See Below) Other HEENT History: pititutary Cardiovascular History: Reports: Other (See Below) Other Cardiovascular History: BRADYCARDIA Respiratory History: Reports: Asthma, Other (See Below) Other Respiratory History: Night time oxygen due to Lupus at 2.5-3L. 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 Musculoskeletal History: Reports: Arthritis, Back Pain, Chronic, Connective Tissue Disease, Neck Pain, Chronic, Other (See Below) Other Musculoskeletal History: herniated disc Neurological History: Reports: Concussion, Head Trauma, Migraines, TIA, Other ( See Below) Other Neuro History: herniated disc - TIA 03/08/16 - tpa given to break up clot - Psychiatric History: Reports: None Endocrine/Metabolic History: Reports: None Hematologic History: Reports: B12 Deficiency, Other (See Below) Other Hematologic History: lymphoma Immunologic History: Reports: Immunosuppression, Other (See Below) Other Immunologic History: lupus Oncologic (Cancer) History: Reports: Lymphoma Dermatologic History: Reports: None - Infectious Disease History Infectious Disease History: Reports: Chicken Pox, Measles, Mumps - Past Surgical History HEENT Surgical History: Reports: LASIK, Other (See Below) GI Surgical History: Reports: Appendectomy, Bariatric Procedure, Cholecystectomy , Colon, Colonoscopy, Esophageal Dilatation Female Surgical History: Reports: Tubal Ligation Endocrine Surgical History: Reports: Pituitary Tumor Resection Social & Family History - Family History HEENT: Reports: Impaired Vision Cardiac: Reports: CAD, [place] Respiratory: Reports: Asthma GI: Reports: None : Reports: Diabetic Nephropathy OBGYN: Reports: None Musculoskeletal: Reports: None Neurological: Reports: None Psychiatric: Reports: None Endocrine/Metabolic: Reports: Diabetes, Type I, Diabetes, type II, Hypothyroidism Hematologic: Reports: None Immunologic: Reports: None Oncologic: Reports: Breast, Uterine - Tobacco Use Smoking Status *Q: Never Smoker Second Hand Smoke Exposure: No - Caffeine Use Caffeine Use: Reports: None Other Caffeine Use: occasionaly - Recreational Drug Use Recreational Drug Use: No H&P Review of Systems - Review of Systems: Review Of Systems: See Below General: Reports: Fever (low grade) HEENT: Reports: No Symptoms Pulmonary: Reports: No Symptoms Cardiovascular: Reports: No Symptoms Gastrointestinal: Reports: No Symptoms Genitourinary: Reports: No Symptoms Musculoskeletal: Reports: No Symptoms Skin: Reports: No Symptoms Psychiatric: Reports: No Symptoms Neurological: Reports: No Symptoms Hematologic/Lymphatic: Reports: No Symptoms Immunologic: Reports: No Symptoms Exam - Exam Exam: See Below - Vital Signs Weight: 133 lb 15.987 oz - Exam General: Alert, Oriented, Cooperative HEENT: PERRLA, Conjunctiva Clear Neck: Supple, Trachea Midline Lungs: Clear to Auscultation, Normal Respiratory Effort Cardiovascular: Regular Rate, Regular Rhythm Abdomen: Other (area 2 1/2 inches long by 3 inches wide of warm, firm, pink very tender area mid center abdomen. ) (Female) Exam: Deferred Rectal (Female) Exam: Deferred Back Exam: Normal Inspection, Full Range of Motion Extremities: Normal Inspection Skin: Warm, Dry, Intact Neurological: Cranial Nerves Intact, Reflexes Equal Bilateral Neuro Extensive - Mental Status: Alert, Oriented x3, Normal Mood/Affect, Normal Cognition, Memory Intact Neuro Extensive - Motor, Sensory, Reflexes: CN II-XII Intact, Abnormal Gait ( walks with a cane) Psychiatric: Alert, Normal Affect, Normal Mood - Patient Data Lab Results Last 24 hrs: Laboratory Results - last 24 hr 09/12/16 Range/Units 12:32 WBC 7.6 (4.5-11.0) K/uL RBC 4.16 (3.30-5.50) M/uL Hgb 11.7 L D (12.0-15.0) g/dL Hct 37.3 (36.0-48.0) % MCV 90 (80-98) fL MCH 28 (27-31) pg MCHC 31 L (32-36) % Plt Count 551 H (150-400) K/uL Result Diagrams: 09/12/16 12:32 09/12/16 12:32 *Q Meaningful Use (ADM) - VTE *Q VTE Criteria *Q: - Stroke *Q Stroke Criteria *Q: - AMI *Q AMI Criteria *Q: Problem List Initiated/Reviewed/Updated: Yes Orders Last 24hrs: Active Orders 24 hr Category Date Time Status Admission Status [Patient Status] [ADT] Routine ADT 09/12/16 11:20 Active Incentive Breathing [RT Incentive Spirometry] [RC] QID Care 09/12/16 12:22 Active Up ad Marcela [RC] ASDIRECTED Care 09/12/16 12:20 Active Verify Patient Consent Obtain [RC] ASDIRECTED Care 09/13/16 07:30 Active Vital Signs [RC] Q4H Care 09/12/16 12:21 Active Bariatric Diet [DIET] Diet 09/12/16 Dinner Active NPO After Midnight [Nothing per Oral After Midnight Diet 09/12/16 Dinner Active Diet] [DIET] COMPREHENSIVE METABOLIC PN,CMP [CHEM] Routine Lab 09/12/16 12:32 Received MAGNESIUM [CHEM] Routine Lab 09/12/16 12:32 Received PHOSPHORUS [CHEM] Routine Lab 09/12/16 12:32 Received Acetaminophen [Tylenol] Med 09/12/16 12:29 Active 650 mg PO Q4H PRN Acetaminophen [Tylenol] Med 09/12/16 12:29 Active 650 mg RECTAL Q4H PRN Dextrose 5%-Lactated Ringers 1,000 ml Med 09/12/16 12:30 Active IV ASDIRECTED HYDROmorphone/Normal Saline [Dilaudid LIBRARY PAGE 15 MG in NS Med 09/12/16 12:23 Active 30 ML] 0 mg IV ASDIRECTED PRN Lidocaine 5% [Lidoderm 5%] Med 09/12/16 12:32 Active 700 mg TRDERM DAILY PRN MVI, Adult with Vitamin K [Infuvite Adult] 10 ml Med 09/12/16 14:00 Active Magnesium Sulfate [Magnesium Sulfate 50%] 2 gm Folic Acid 1 mg Thiamine [Vitamin B-1] 100 mg Lactated Ringers [Ringers, Lactated] 1,000 ml IV ONETIME Naloxone [Narcan] Med 09/12/16 12:23 Active 0.1 mg IV ASDIRECTED PRN Non-Formulary Medication [NF Drug] Med 09/13/16 09:00 Active 1 each TOP DAILY Ondansetron [Zofran] Med 09/12/16 12:30 Active 4 mg IVPUSH Q4H PRN Pantoprazole [ProTONIX IV] Med 09/12/16 12:30 Active 40 mg IV Q24H Piperacillin/Tazobactam/Dext [Zosyn in Dextrose Iso- Med 09/12/16 14:00 Active Osmotic 3.375 GM] 3.375 gm Premix Bag 1 bag IV Q6H Remove Patch Med 09/12/16 21:00 Active 1 ea TRDERM BEDTIME Scopolamine [Transderm-Scop] Med 09/12/16 13:00 Active 1.5 mg TOP Q72H Code Status [Resuscitation Status] Routine Resus Stat 09/12/16 12:20 Ordered Medication Orders Acetaminophen (Tylenol) 650 mg PO Q4H PRN PRN Reason: ANALGESIA/FEVER Acetaminophen (Tylenol) 650 mg RECTAL Q4H PRN PRN Reason: ANALGESIA/FEVER Hydromorphone HCl (Dilaudid Process Worker 15 Mg In Ns 30 Ml) 0 mg IV ASDIRECTED PRN; Protocol PRN Reason: LIBRARY PAGE PAIN CONTROL Piperacillin/Tazobactam/ (Dextrose 3.375 gm/ Premix) 50 mls @ 100 mls/hr IV Q6H SARAHY Dextrose/Lactated Ringer's (Dextrose 5%-Lactated Ringers) 1,000 mls @ 125 mls/ hr IV ASDIRECTED SARAHY Multivitamins/Minerals 10 ml/Magnesium Sulfate 2 gm/ Folic Acid 1 mg/ Thiamine HCl 100 mg / Lactated Ringer's 1,015.2 mls @ 1,000 mls/hr IV ONETIME ONE Stop: 09/12/16 15:00 Lidocaine (Lidoderm 5%) 700 mg TRDERM DAILY PRN PRN Reason: PAIN Miscellaneous Information (Remove Patch) 1 ea TRDERM BEDTIME SARAHY Naloxone HCl (Narcan) 0.1 mg IV ASDIRECTED PRN PRN Reason: decreased respiratory rate Check Scopolamine (Patch) 1 each TOP DAILY SARAHY Ondansetron HCl (Zofran) 4 mg IVPUSH Q4H PRN PRN Reason: NAUSEA Pantoprazole Sodium (Protonix Iv) 40 mg IV Q24H SARAHY Scopolamine (Transderm-Scop) 1.5 mg TOP Q72H SARAHY Assessment/Plan Comment:: Abdominal Wall Abscess Low grade fever Plan: Admit to Inpatient Schedule Exploratory Laparotomy for Abdominal Abscess - General Anesthesia - Kit Duke MD - 09/13/16 NPO after MN See EMR for the rest of orders. Gail AMARO C
[2016-09-12] MEDS ORDERED: Scopolamine 1.5 MG Transdermal Patch TOP SCH (13:00)
[2016-09-12] MEDS: Ondansetron 4 MG/2 ML SDV IVPUSH PRN ×2 (13:17→18:21)
[2016-09-12] MEDS: Piperacillin/Tazobactam/Dext 3.375 GM in Premix Bag 1 BAG IV SCH ×2 (13:31→19:36)
[2016-09-12] MEDS: Dextrose 5%-Lactated Ringers 1,000 ML IV SCH ×2 (13:31→23:43)
[2016-09-12] MEDS ORDERED: MVI, Adult with Vitamin K 10 ML, Magnesium Sulfate 2 GM, Folic Acid 1 MG, Thiamine 100 ... IV ONE ×5 (14:00)
[2016-09-12] MEDS ORDERED: Iohexol 647 MG/ML 10 ML SDV PO SCH (17:15)
[2016-09-12] MEDS ORDERED: Iopamidol 612 MG/ML 100 ML Bottle IV PRN (18:53)
[2016-09-12] MEDS ORDERED: Sodium Chloride 0.9% 10 ML Syringe FLUSH PRN (18:53)
[2016-09-13] MEDS: Piperacillin/Tazobactam/Dext 3.375 GM in Premix Bag 1 BAG IV SCH ×2 (01:40→07:37)
[2016-09-13] MEDS: Ondansetron 4 MG/2 ML SDV IVPUSH PRN (07:06)
[2016-09-13] MEDS ORDERED: Bupivacaine 0.5% 50 ML MDV ONE (07:26)
[2016-09-13] MEDS ORDERED: Lidocaine 1% with EPINEPHrine 1:100,000 50 ML MDV ONE (07:26)
[2016-09-13] MEDS ORDERED: fentaNYL 250 MCG/5 ML SDV ONE (07:36)
[2016-09-13] MEDS ORDERED: Propofol 200 MG/20 ML SDV ONE (07:37)
[2016-09-13] MEDS ORDERED: Neostigmine Methylsulfate 1 MG/ML 5 ML Syringe ONE (07:37)
[2016-09-13] MEDS ORDERED: Rocuronium 50 MG/5 ML Vial ONE (07:37)
[2016-09-13] MEDS ORDERED: Dexamethasone 4 MG/ML SDV ONE (07:37)
[2016-09-13] MEDS ORDERED: Ondansetron 4 MG/2 ML SDV ONE (07:37)
[2016-09-13] MEDS ORDERED: Lactated Ringers 1,000 ML ONE (07:48)
[2016-09-13] MEDS: CHECK SCOPOLAMINE PATCH TOP SCH (09:48)
[2016-09-13] MEDS: Linezolid 600 MG in Premix Bag 1 BAG IV SCH ×2 (09:49→13:57)
[2016-09-13] MEDS: HYDROmorphone 2 MG Tab PO PRN ×3 (09:52→19:49)
[2016-09-13] MEDS ORDERED: Linezolid 600 MG Tab PO ONE (11:30)
[2016-09-13] MEDS: Acetaminophen 325 MG Tab PO PRN ×2 (13:04→18:41)
[2016-09-13] MEDS: Doxycycline 100 MG Cap PO SCH ×2 (13:05→20:52)
[2016-09-13] MEDS ORDERED: diphenhydrAMINE 25 MG Cap PO PRN (13:13)
[2016-09-13] MEDS ORDERED: Ondansetron 4 MG Tab.DIS PO PRN (13:45)
[2016-09-13] MEDS: Linezolid 600 MG Tab PO SCH (20:52)
[2016-09-14] MEDS: HYDROmorphone 2 MG Tab PO PRN ×3 (00:59→09:27)
[2016-09-14] MEDS: Acetaminophen 325 MG Tab PO PRN (02:38)
[2016-09-14 07:25] VITALS: BP 120/72
[2016-09-14] MEDS: Linezolid 600 MG Tab PO SCH (09:09)
[2016-09-14] MEDS: CHECK SCOPOLAMINE PATCH TOP SCH (09:09)
[2016-09-14] MEDS: Doxycycline 100 MG Cap PO SCH (09:09)
--- NOTE | 2016-09-14 12:47 | DISCH ---
ADMISSION DIAGNOSIS: Abdominal wall abscess. DISCHARGE DIAGNOSIS: Exploration of abdominal wall with drainage and debridement of focal resection of infection, subcutaneous tissue, and drainage of small intraabdominal abscess for small intraabdominal abscess with focal necrotizing infection, midline incision, abdominal wall. Date of surgery, 09/13/2016. HOSPITAL COURSE: Carolyn Hanks presented to the clinic on 09/12/2016 with a firm tender area in her abdomen. She was directly admitted to the hospital. After preoperative evaluation and discussion of possible risks and possible complications, she wished to proceed with surgical procedure. She had her surgical procedure on 09/13/2016. She had no operative complications. On postop day #1, she was able to be discharged to home. PHYSICAL EXAMINATION: GENERAL: Carolyn Hanks is a pleasant 56-year-old female. VITAL SIGNS: Height is 5 feet 6.14 inches. Weight is 124 pounds. TPR 97, 56, 15, blood pressure 120/72. HEENT: Negative. NECK: Supple. HEART: Regular rate and rhythm. LUNGS: Clear. ABDOMEN: Incision is open in her midabdomen, 2 inches long and about 1 inch deep, healing well. The redness has gone away surrounding that area. EXTREMITIES: Without peripheral edema. DISPOSITION: Discharged to home. CONDITION: Stable and improving. FOLLOWUP APPOINTMENT: On 09/21/2016 at 10 a.m. DISCHARGE MEDICATIONS: New prescriptions; 1. Dilaudid 2 mg 1 to 2 every 4 hours p.r.n. pain, #50. 2. Septra DS 1 tablet oral twice daily, #20. She may have liquid if she desires. 3. She is to resume her home medications. DISCHARGE INSTRUCTIONS: Special Instructions: May shower, to change and repack, open incision twice daily. Use incentive spirometer 10 times every hour while awake. Notify provider if any fever, increased pain, or drainage. DISCHARGE DIET: Usual diet. Drink 8 to 10 glasses of water a day. ACTIVITY: As tolerated. No lifting greater than 10 pounds for 6 weeks[address] Driving, do not drive while on pain medication.
--- NOTE | 2016-09-15 12:19 | OR ---
DATE OF PROCEDURE: 09/13/2016 PREOPERATIVE DIAGNOSIS: Abdominal wall infection. POSTOPERATIVE DIAGNOSIS: Small intraabdominal abscess with focal necrotizing fasciitis involving midline abdominal wall. OPERATIVE PROCEDURES: Exploration of abdominal wall with; 1. Drainage and debridement of focal necrotizing infection, subcutaneous tissue of abdominal wall (02676). 2. Drainage of small intraabdominal abscess (00113). ANESTHESIA: General. INDICATION FOR PROCEDURE: The patient is status post a complicated ureteral colectomy with postoperative infectious complications. She presents now with new onset of some redness in her midline incision. This was located from the area of the umbilicus and somewhat superior to it. CT scan showed a fluid collection in that area along with inflammation. There did not appear to be any obvious connection to this area with the underlying small bowel. Plan is to proceed with exploration of abdominal wall with drainage and debridement as indicated. The possibility that this does, in fact, involve small bowel was reviewed with the patient and , and they are aware that, that would invite a more extensive operation and/or extended clinical course related to a small bowel fistula. Potential risks including bleeding, infection, injury to underlying viscera and such were all reviewed, and the patient wishes to proceed. DETAILS OF PROCEDURE: The patient was taken to the operating room and after general endotracheal anesthesia was induced, the abdomen was prepped and draped. Using electrocautery, the skin overlying the midline incision in the supraumbilical area was then made and carried down through the skin and subcutaneous tissues. Initially, the tissue was noted to be quite edematous and had some focal necrotizing effects in the subcutaneous tissue. Eventually, a pocket of slightly off-colored serous fluid was encountered. Cultures of this were obtained and Gram stain showed gram-positive cocci along with some possible gram-negative rods. This fluid collection extended through the fascia and slightly into the intraabdominal wall location, but there was no evisceration. There appeared to be a thick layer of healing soft tissue underlying the level of the intraabdominal abscess portion. Once this was drained, some of the necrotic material along with subcutaneous tissue was debrided, that is necrotic at this point. The wound then packed open with iodoform gauze. There, obviously at this point, was no evident connection to the underlying small bowel or other viscera. After the wound was packed open with iodoform gauze, the patient was taken to the recovery room in satisfactory condition. Kit Duke MD /[id number]
== END 2016-09-14 09:36 | disposition home or self-care (01) | DRG 579 ==
LOC: JP.2SS 11:39
PROVIDERS: ADMIT Surgery; ATTEND Surgery
PROC: 0J980ZX Drainage of Abdomen Subcutaneous Tissue and Fascia, Open Approach, Diagnostic (ICD-10-PCS; principal; 2016-09-13)
PROC: 0W9F0ZZ Drainage of Abdominal Wall, Open Approach (ICD-10-PCS; principal; 2016-09-13)
PROC: 0JD80ZZ Extraction of Abdomen Subcutaneous Tissue and Fascia, Open Approach (ICD-10-PCS; principal; 2016-09-13)
DX: L02.211 Cutaneous abscess of abdominal wall (principal); M72.6 Necrotizing fasciitis; K65.1 Peritoneal abscess; L93.0 Discoid lupus erythematosus; M54.9 Dorsalgia, unspecified; G89.29 Other chronic pain; E53.8 Deficiency of other specified B group vitamins; K59.09 Other constipation; Z85.72 Personal history of non-Hodgkin lymphomas; Z99.81 Dependence on supplemental oxygen; Z98.84 Bariatric surgery status; Z86.73 Personal history of transient ischemic attack (TIA), and cerebral infarction without residual deficits; M54.2 Cervicalgia; Z91.030 Bee allergy status; Z88.5 Allergy status to narcotic agent; Z88.8 Allergy status to other drugs, medicaments and biological substances
CPT/HCPCS: 36415; 74177; 80053; 83735; 84100; 85027; 87070; 87075; 87205; 88304; 94762; A9270-GY; C9113; J1100; J1170; J2020; J2405; J2543; J2704; J3010; J3411; J3475; J3490; J7030; J7042; J7050; J7120; Q9967

== ENCOUNTER 2016-12-14 10:48 | Inpatient (IN) | payer MEDICARE, OTHER ==
[2016-12-14] MEDS ORDERED: Naloxone 0.4 MG/ML SDV IV PRN (11:40)
[2016-12-14] MEDS ORDERED: Acetaminophen 325 MG Tab PO PRN ×2 (11:44→17:13)
[2016-12-14] MEDS ORDERED: Acetaminophen Soln 650 MG/20.3 ML UD Cup PO PRN (11:45)
[2016-12-14] MEDS: HYDROmorphone/Normal Saline 15 MG/30 ML PCA IV PRN (11:49)
[2016-12-14] MEDS: Scopolamine 1.5 MG Transdermal Patch TOP SCH (13:44)
[2016-12-14] MEDS: Ondansetron 4 MG/2 ML SDV IVPUSH PRN ×2 (15:27→20:23)
[2016-12-14] MEDS: Pantoprazole 40 MG Vial IV SCH (16:56)
[2016-12-14] MEDS ORDERED: EPINEPHrine 1 MG/ML SDV IM PRN (17:13)
--- NOTE | 2016-12-14 17:26 | PCM.HP ---
H&P History of Present Illness - General Date of Service: 12/14/16 Admit Problem/Dx: Admission Diagnosis/Problem Admission Diagnosis/Problem Michelle Leon has had increasing pain in her mid abdomen for about the past 2 weeks. She has also noted redness at the site of tenderness. She has had a previous fluid collection and CT Scan did reveal an increase in size left anterior abdomen. There has been an increase in pain, nausea and dehydration. Source of Information: Patient - History of Present Illness Location: Reports: Abdomen Quality: Reports: Dull, Pressure, Throbbing Severity: Moderate Improves with: Reports: None Worsens with: Reports: None Associated Symptoms: Reports: Loss of Appetite, Weakness, Other (nausea and dehydration) Abdomen Pain Score (Numeric/FACES): 5 - Related Data Allergies/Adverse Reactions: Allergies Allergy/AdvReac Type Severity Reaction Status Date / Time codeine Allergy Unknown Cannot Verified 05/09/16 08:04 Remember hydrocodone Allergy Unknown Cannot Verified 09/13/16 09:38 Remember omeprazole Allergy Unknown Cannot Verified 05/16/16 09:32 Remember oxycodone Allergy Unknown Cannot Verified 05/09/16 08:04 Remember sucralfate [From Carafate] Allergy Unknown Cannot Verified 05/09/16 08:04 Remember venom-honey bee Allergy Cannot Verified 05/09/16 08:04 [bee venom (honey bee)] Remember Home Medications: Home Meds Cyanocobalamin (Vitamin B-12) [Cyanocobalamin Injection] 1 ml IM ASDIRECTED [History] EPINEPHrine [Epipen] 0.3 mg IM ASDIRECTED PRN 04/10/15 [History] Multivitamin with Minerals [Multivitamins with Minerals] 1 tab PO DAILY [History] Ondansetron [Zofran ODT] 4 mg PO Q4HR PRN #30 tab.dis 04/16/15 [Rx] Thiamine [Vitamin B-1] 100 mg IM ASDIRECTED 11/09/15 [History] Lidocaine 5% [Lidoderm 5%] 700 mg TRDERM DAILY patch 01/06/16 [Rx] Scopolamine [Transderm-Scop] 1.5 mg TRDERM Q72H #5 patch 01/06/16 [Rx] Acetaminophen 640 mg PO Q4H PRN 04/07/16 [History] Polyethylene Glycol 3350 [Miralax] 119 gm PO ASDIRECTED #238 powder 04/11/16 [Rx ] Acetaminophen [Tylenol] 650 mg PO Q6H PRN #100 tablet 06/01/16 [Rx] Amoxicillin [Amoxil 250 MG/5 ML Susp] 500 mg PO Q8H #300 ml 06/01/16 [Rx] Atropine/Diphenoxylate [Diphenoxylate-Atropine] 1 tab PO TID #50 tablet [Rx] Dimethicone/Zinc Oxide [Rash Relief-Zinc Oxide] 1 gm TOP ASDIRECTED PRN #0 bottle 06/01/16 [Rx] Fluconazole [Diflucan] 100 mg PO DAILY #10 tablet 06/01/16 [Rx] HYDROmorphone [Dilaudid] 2 - 4 mg PO Q4H PRN #50 tablet 06/01/16 [Rx] Lactobacillus Rhamnosus GG [Culturelle] 2 cap PO BID #100 cap 06/01/16 [Rx] HYDROmorphone [Dilaudid] 2 - 4 mg PO Q4H PRN #50 tablet 09/14/16 [Rx] Sulfamethoxazole/Trimethoprim [Septra DS] 1 each PO BID #20 tab 09/14/16 [Rx] Past Medical History HEENT History: Reports: None, Cataract, Other (See Below) Other HEENT History: pititutary Cardiovascular History: Reports: Other (See Below) Other Cardiovascular History: BRADYCARDIA Respiratory History: Reports: Asthma, Other (See Below) Other Respiratory History: Night time oxygen due to Lupus at 2.5-3L. Gastrointestinal History: Reports: Bowel Obstruction, Chronic Constipation, GERD Other Gastrointestinal History: splenectomy Genitourinary History: Reports: None DOLLYMAN History: Reports: , Spontaneous Musculoskeletal History: Reports: Arthritis, Back Pain, Chronic, Connective Tissue Disease, Neck Pain, Chronic, Other (See Below) Other Musculoskeletal History: herniated disc Neurological History: Reports: Concussion, Head Trauma, Migraines, TIA, Other ( See Below) Other Neuro History: herniated disc - TIA 03/08/16 - tpa given to break up clot - Psychiatric History: Reports: None Endocrine/Metabolic History: Reports: None Hematologic History: Reports: B12 Deficiency, Other (See Below) Other Hematologic History: lymphoma Immunologic History: Reports: Immunosuppression, Other (See Below) Other Immunologic History: lupus Oncologic (Cancer) History: Reports: Lymphoma Dermatologic History: Reports: None - Infectious Disease History Infectious Disease History: Reports: Chicken Pox, Mumps - Past Surgical History Head Surgeries/Procedures: Reports: None HEENT Surgical History: Reports: LASIK, Other (See Below) GI Surgical History: Reports: Appendectomy, Bariatric Procedure, Cholecystectomy , Colon, Colonoscopy, Esophageal Dilatation Female Surgical History: Reports: Tubal Ligation Endocrine Surgical History: Reports: Pituitary Tumor Resection Social & Family History - Family History HEENT: Reports: Impaired Vision Cardiac: Reports: CAD, NE Respiratory: Reports: Asthma GI: Reports: None : Reports: Diabetic Nephropathy OBGYN: Reports: None Musculoskeletal: Reports: None Neurological: Reports: None Psychiatric: Reports: None Endocrine/Metabolic: Reports: Diabetes, Type I, Diabetes, type II, Hypothyroidism Hematologic: Reports: None Immunologic: Reports: None Oncologic: Reports: Breast, Uterine - Tobacco Use Smoking Status *Q: Never Smoker Second Hand Smoke Exposure: No - Caffeine Use Caffeine Use: Reports: None Other Caffeine Use: occasionaly - Alcohol Use Days Per Week of Alcohol Use: 0 - Recreational Drug Use Recreational Drug Use: No H&P Review of Systems - Review of Systems: Review Of Systems: See Below General: Reports: Weakness, Fatigue HEENT: Reports: No Symptoms Pulmonary: Reports: No Symptoms Cardiovascular: Reports: No Symptoms Gastrointestinal: Reports: Abdominal Pain (left anterior abdominal area associated with redness of the skin. ), Diarrhea, Decreased Appetite, Nausea Genitourinary: Reports: No Symptoms Musculoskeletal: Reports: No Symptoms Skin: Reports: No Symptoms Psychiatric: Reports: No Symptoms Neurological: Reports: No Symptoms Hematologic/Lymphatic: Reports: No Symptoms Immunologic: Reports: No Symptoms Exam - Exam Exam: See Below - Vital Signs Vital Signs: Last Vital Signs Temp 96.9 F 12/14/16 15:38 Pulse 53 L 12/14/16 15:38 Resp 14 12/14/16 15:38 BP 120/65 12/14/16 15:38 Pulse Ox 97 12/14/16 15:38 Weight: 133 lb 1.6 oz - Exam Quality Assessment: DVT Prophylaxis General: Alert, Oriented, Cooperative, Moderate Distress HEENT: PERRLA Neck: Supple, Trachea Midline Lungs: Clear to Auscultation, Normal Respiratory Effort Cardiovascular: Regular Rate, Regular Rhythm GI/Abdominal Exam: Other (tenderness and fulness is noted to the left of the midline incision. Area is firm and pink. ) (Female) Exam: Deferred Rectal (Female) Exam: Deferred Back Exam: Normal Inspection, Full Range of Motion Extremities: Normal Inspection, Normal Range of Motion Skin: Warm, Dry, Intact Neurological: Cranial Nerves Intact, Reflexes Equal Bilateral Neuro Extensive - Mental Status: Alert, Oriented x3, Normal Mood/Affect - Patient Data Lab Results Last 24 hrs: Laboratory Results - last 24 hr 12/14/16 12/14/16 Range/Units 12:13 12:13 WBC 4.9 (4.5-11.0) K/uL RBC 4.23 (3.30-5.50) M/uL Hgb 12.1 (12.0-15.0) g/dL Hct 38.8 (36.0-48.0) % MCV 92 (80-98) fL MCH 29 (27-31) pg MCHC 31 L (32-36) % Plt Count 368 (150-400) K/uL Neut % (Auto) 56 (36-66) % Lymph % (Auto) 32 (24-44) % [place] % (Auto) 8 H (2-6) % Eos % (Auto) 4 (2-4) % Baso % (Auto) 1 (0-1) % Sodium 140 (140-148) mmol/L Potassium 3.9 (3.6-5.2) mmol/L Chloride 105 (100-108) mmol/L Carbon Dioxide 30 (21-32) mmol/L Anion Gap 5.1 (5.0-14.0) mmol/L BUN 10 (7-18) mg/dL Creatinine 0.6 (0.6-1.0) mg/dL Est Cr Clr Drug Dosing 97.41 mL/min Estimated GFR (MDRD) > 60 (>60) Glucose 112 H (74-106) mg/dL Calcium 8.8 (8.5-10.1) mg/dL Phosphorus 4.2 (2.5-4.9) mg/dL Magnesium 2.0 (1.8-2.4) mg/dL Total Bilirubin 0.3 (0.2-1.0) mg/dL AST 20 (15-37) U/L ALT 29 (12-78) U/L Alkaline Phosphatase 95 (46-116) U/L Total Protein 7.1 (6.4-8.2) g/dL Albumin 3.5 (3.4-5.0) g/dL Globulin 3.6 H (2.3-3.5) g/dL Albumin/Globulin Ratio 1.0 L (1.2-2.2) Result Diagrams: 12/14/16 12:13 12/14/16 12:13 *Q Meaningful Use (ADM) - VTE *Q VTE Criteria *Q: - Stroke *Q Stroke Criteria *Q: - AMI *Q AMI Criteria *Q: Problem List Initiated/Reviewed/Updated: Yes Orders Last 24hrs: Active Orders 24 hr Category Date Time Status Patient Status [ADT] Routine ADT 12/14/16 10:30 Active Intake and Output [RC] ASDIRECTED Care 12/14/16 11:55 Active Up ad Marcela [RC] ASDIRECTED Care 12/14/16 11:55 Active Verify Patient Consent Obtain [RC] ASDIRECTED Care 12/14/16 11:55 Active Vital Signs [RC] Q4H Care 12/14/16 11:55 Active Bariatric Diet [DIET] Diet 12/14/16 Lunch Active Nothing per Oral After Midnight Diet [DIET] Diet 12/15/16 Breakfast Active Guide Intraoperative [US] Routine Exams 12/15/16 11:30 Ordered Acetaminophen [Tylenol] Med 12/14/16 11:44 Active 650 mg PO Q4H PRN Acetaminophen [Tylenol] Med 12/14/16 11:45 Active 650 mg PO Q4H PRN Acetaminophen [Tylenol] Med 12/14/16 17:13 Ordered 650 mg PO Q6H PRN Atropine/Diphenoxylate [Lomotil 0.025-2.5 MG] Med 12/14/16 21:00 Ordered 1 tab PO TID Dextrose 5%-Lactated Ringers 1,000 ml Med 12/14/16 11:45 Active IV ASDIRECTED EPINEPHrine [Epipen] Med 12/14/16 17:13 Ordered 0.3 mg IM ASDIRECTED PRN HYDROmorphone/Normal Saline [Dilaudid HYDRAULIC ROCK DRILL OPERATOR 15 MG in NS Med 12/14/16 11:40 Active 30 ML] 0 mg IV ASDIRECTED PRN Lidocaine 5% [Lidoderm 5%] Med 12/15/16 09:00 Ordered 700 mg TRDERM DAILY Naloxone [Narcan] Med 12/14/16 11:40 Active 0.1 mg IV ASDIRECTED PRN Non-Formulary Medication [NF Drug] Med 12/15/16 09:00 Active 0 each TOP DAILY Ondansetron [Zofran] Med 12/14/16 11:46 Active 4 mg IVPUSH Q4H PRN Pantoprazole [ProTONIX IV] Med 12/14/16 16:00 Active 40 mg IV Q24H Scopolamine [Transderm-Scop] Med 12/14/16 12:00 Active 1.5 mg TOP Q72H Sequential Compression Device [OM.PC] Routine Oth 12/14/16 11:55 Ordered Resuscitation Status Routine Resus Stat 12/14/16 11:55 Ordered Medication Orders Acetaminophen (Tylenol) 650 mg PO Q4H PRN PRN Reason: PAIN Acetaminophen (Tylenol) 650 mg PO Q4H PRN PRN Reason: PAIN Acetaminophen (Tylenol) 650 mg PO Q6H PRN PRN Reason: Pain Diphenoxylate HCl/Atropine (Lomotil 0.025-2.5 Mg) 1 tab PO TID SARAHY Hydromorphone HCl (Dilaudid Supervisor Tubing 15 Mg In Ns 30 Ml) 0 mg IV ASDIRECTED PRN; Protocol PRN Reason: HYDRAULIC ROCK DRILL OPERATOR PAIN CONTROL Last Admin: 12/14/16 11:49 Dose: 15 mg Dextrose/Lactated Ringer's (Dextrose 5%-Lactated Ringers) 1,000 mls @ 100 mls/ hr IV ASDIRECTED [facility] Lidocaine (Lidoderm 5%) 700 mg TRDERM DAILY [facility] Naloxone HCl (Narcan) 0.1 mg IV ASDIRECTED PRN PRN Reason: decreased respiratory rate Scopalamine Patch (Check) 0 each TOP DAILY [facility] Non-Formulary Medication (Epinephrine [Epipen]) 0.3 mg IM ASDIRECTED PRN PRN Reason: Allergies Ondansetron HCl (Zofran) 4 mg IVPUSH Q4H PRN PRN Reason: NAUSEA Last Admin: 12/14/16 15:27 Dose: 4 mg Pantoprazole Sodium (Protonix Iv) 40 mg IV Q24H SARAHY Last Admin: 12/14/16 16:56 Dose: 40 mg Scopolamine (Transderm-Scop) 1.5 mg TOP Q72H SARAHY Last Admin: 12/14/16 13:44 Dose: 1.5 mg Assessment/Plan Comment:: Assessment: Fluid Collection in the left anterior abdomen Nausea Dehydration Plan: Admit to inpatient status - length of stay 2 nights and 3 days Scheduled and have consent signed for: Ultrasound Guided Drainage of intra-abdominal fluid collection - , 2016 - General Anesthesia - Kit Duke MD NPO after KRYSTLE Bacon
[2016-12-14] MEDS ORDERED: Atropine/Diphenoxylate 0.025-2.5 MG Tab PO SCH (21:00)
[2016-12-14] MEDS: Dextrose 5%-Lactated Ringers 1,000 ML IV SCH (21:41)
[2016-12-15] MEDS: Ondansetron 4 MG/2 ML SDV IVPUSH PRN ×4 (00:29→22:33)
[2016-12-15] MEDS: Dextrose 5%-Lactated Ringers 1,000 ML IV SCH ×2 (07:53→22:17)
[2016-12-15] MEDS: SCOPALAMINE PATCH CHECK TOP SCH (08:17)
[2016-12-15] MEDS ORDERED: Meropenem 500 MG SDV ONE (08:50)
[2016-12-15] MEDS ORDERED: Bupivacaine 0.5% 50 ML MDV ONE (08:50)
[2016-12-15] MEDS ORDERED: Lidocaine 1% with EPINEPHrine 1:100,000 50 ML MDV ONE (08:51)
[2016-12-15] MEDS ORDERED: Lidocaine 5% 700 MG Patch TRDERM PRN (09:00)
--- NOTE | 2016-12-15 10:35 | PCM.SURGPN ---
- General Info Date of Service: 12/15/16 Date of Surgery/Procedure: 12/15/16 POD#: 0 Admission Diagnosis/Problem: Seroma (drainage of fluid filled pocket in abdomen) Functional Status: Reports: Pain Controlled, Ambulating, Urinating - Review of Systems General: Reports: No Symptoms, Weakness, Fatigue HEENT: Reports: No Symptoms Pulmonary: Reports: No Symptoms Cardiovascular: Reports: No Symptoms Gastrointestinal: Reports: Abdominal Pain (lower abdominal pain, left quadrant worse than right ), Decreased Appetite, Nausea Genitourinary: Reports: No Symptoms Musculoskeletal: Reports: No Symptoms Skin: Reports: No Symptoms Neurological: Reports: No Symptoms Psychiatric: Reports: No Symptoms Systems Review Comment:: Carolyn reports that her pain is controlled by her COIN COLLECTOR, however it is not helping with the nausea she is experiencing. Has been receiving Zofran for nausea. She reports that IV Tylenol has controlled her pain in the past without causing an increase in nausea. She is NPO for surgery this date. - Patient Data Vitals - Most Recent: Last Vital Signs Temp 36.4 C 12/15/16 07:00 Pulse 46 L 12/15/16 07:00 Resp 18 12/15/16 07:00 BP 138/75 12/15/16 07:00 Pulse Ox 99 12/15/16 07:28 Weight - Most Recent: 60.373 kg I&O - Last 24 Hours: Intake & Output 12/14/16 12/15/16 12/15/16 22:59 06:59 14:59 Intake Total 1257 1029 Output Total 300 125 Balance 957 904 Lab Results Last 24 Hrs: Laboratory Results - last 24 hr 12/14/16 12/14/16 Range/Units 12:13 12:13 WBC 4.9 (4.5-11.0) K/uL RBC 4.23 (3.30-5.50) M/uL Hgb 12.1 (12.0-15.0) g/dL Hct 38.8 (36.0-48.0) % MCV 92 (80-98) fL MCH 29 (27-31) pg MCHC 31 L (32-36) % Plt Count 368 (150-400) K/uL Neut % (Auto) 56 (36-66) % Lymph % (Auto) 32 (24-44) % [place] % (Auto) 8 H (2-6) % Eos % (Auto) 4 (2-4) % Baso % (Auto) 1 (0-1) % Sodium 140 (140-148) mmol/L Potassium 3.9 (3.6-5.2) mmol/L Chloride 105 (100-108) mmol/L Carbon Dioxide 30 (21-32) mmol/L Anion Gap 5.1 (5.0-14.0) mmol/L BUN 10 (7-18) mg/dL Creatinine 0.6 (0.6-1.0) mg/dL Est Cr Clr Drug Dosing 97.41 mL/min Estimated GFR (MDRD) > 60 (>60) Glucose 112 H (74-106) mg/dL Calcium 8.8 (8.5-10.1) mg/dL Phosphorus 4.2 (2.5-4.9) mg/dL Magnesium 2.0 (1.8-2.4) mg/dL Total Bilirubin 0.3 (0.2-1.0) mg/dL AST 20 (15-37) U/L ALT 29 (12-78) U/L Alkaline Phosphatase 95 (46-116) U/L Total Protein 7.1 (6.4-8.2) g/dL Albumin 3.5 (3.4-5.0) g/dL Globulin 3.6 H (2.3-3.5) g/dL Albumin/Globulin Ratio 1.0 L (1.2-2.2) Med Orders - Current: Current Medications Acetaminophen (Tylenol) 650 mg PO Q4H PRN PRN Reason: PAIN Acetaminophen (Tylenol) 650 mg PO Q4H PRN PRN Reason: PAIN Acetaminophen (Tylenol) 650 mg PO Q6H PRN PRN Reason: Pain Epinephrine HCl (Adrenalin 1:1000) 0.3 mg IM ASDIRECTED PRN PRN Reason: ALLERGIES Hydromorphone HCl (Dilaudid Supervisor Cd Area 15 Mg In Ns 30 Ml) 0 mg IV ASDIRECTED PRN; Protocol PRN Reason: COIN COLLECTOR PAIN CONTROL Last Admin: 12/14/16 11:49 Dose: 15 mg Dextrose/Lactated Ringer's (Dextrose 5%-Lactated Ringers) 1,000 mls @ 100 mls/ hr IV ASDIRECTED SARAHY Last Admin: 12/15/16 07:53 Dose: 100 mls/hr Cefazolin Sodium 2 gm/ Sodium (Chloride) 50 mls @ 100 mls/hr IV ONCALL ONE Stop: 12/15/16 11:44 Lidocaine (Lidoderm 5%) 700 mg TRDERM DAILY PRN PRN Reason: PAIN Naloxone HCl (Narcan) 0.1 mg IV ASDIRECTED PRN PRN Reason: decreased respiratory rate Scopalamine Patch (Check) 0 each TOP DAILY [facility] Last Admin: 12/15/16 08:17 Dose: Not Given Ondansetron HCl (Zofran) 4 mg IVPUSH Q4H PRN PRN Reason: NAUSEA Last Admin: 12/15/16 07:53 Dose: 4 mg Pantoprazole Sodium (Protonix Iv) 40 mg IV Q24H [facility] Last Admin: 12/14/16 16:56 Dose: 40 mg Scopolamine (Transderm-Scop) 1.5 mg TOP Q72H [facility] Last Admin: 12/14/16 13:44 Dose: 1.5 mg Discontinued Medications Bupivacaine HCl (Marcaine 0.5%) Confirm Administered Dose 50 ml .ROUTE .STK-MED ONE Stop: 12/15/16 08:51 Lidocaine/Epinephrine (Xylocaine 1% With Epinephrine 1:100,000) Confirm Administered Dose 50 ml .ROUTE .STK-MED ONE Stop: 12/15/16 08:52 Meropenem (Merrem) Confirm Administered Dose 500 mg .ROUTE .STK-MED ONE Stop: 12/15/16 08:51 - Exam Wound/Incisions: Other (NA) Quality Assessment: DVT Prophylaxis General: Alert, Oriented, Mild Distress HEENT: Pupils Equal, Pupils Reactive Neck: Supple Lungs: Clear to Auscultation, Normal Respiratory Effort Cardiovascular: Regular Rate, Regular Rhythm, No Murmurs GI/Abdominal Exam: Tender (lower quadrant pain with palpation, left worse than right) Extremities: Normal Inspection, Normal Range of Motion Skin: Warm, Dry, Intact Neurological: No New Focal Deficit Psy/Mental Status: Alert, Normal Affect, Normal Mood - Problem List & Annotations (1) Abdominal pain SNOMED Code(s): 59261952 Code(s): R10.9 - UNSPECIFIED ABDOMINAL PAIN Status: Acute Current Visit: Yes - Problem List Review Problem List Initiated/Reviewed/Updated: Yes - My Orders Last 24 Hours: Active Orders 24 hr Category Date Time Status Patient Status [ADT] Routine ADT 12/14/16 10:30 Active Intake and Output [RC] ASDIRECTED Care 12/14/16 11:55 Active Overnight Pulse Oximetry [RC] Click to Edit Care 12/14/16 22:48 Active Up ad Marcela [RC] ASDIRECTED Care 12/14/16 11:55 Active Vital Signs [RC] Q4H Care 12/14/16 11:55 Active Bariatric Diet [DIET] Diet 12/14/16 Lunch Active Nothing per Oral After Midnight Diet [DIET] Diet 12/15/16 Breakfast Active Guide Intraoperative [US] Routine Exams 12/15/16 11:30 Ordered Acetaminophen [Tylenol] Med 12/14/16 11:44 Active 650 mg PO Q4H PRN Acetaminophen [Tylenol] Med 12/14/16 11:45 Active 650 mg PO Q4H PRN Acetaminophen [Tylenol] Med 12/14/16 17:13 Active 650 mg PO Q6H PRN Dextrose 5%-Lactated Ringers 1,000 ml Med 12/14/16 11:45 Active IV ASDIRECTED EPINEPHrine [Adrenalin 1:1000] Med 12/14/16 17:13 Active 0.3 mg IM ASDIRECTED PRN HYDROmorphone/Normal Saline [Dilaudid COIN COLLECTOR 15 MG in NS Med 12/14/16 11:40 Active 30 ML] 0 mg IV ASDIRECTED PRN Lidocaine 5% [Lidoderm 5%] Med 12/15/16 09:00 Active 700 mg TRDERM DAILY PRN Naloxone [Narcan] Med 12/14/16 11:40 Active 0.1 mg IV ASDIRECTED PRN Non-Formulary Medication [NF Drug] Med 12/15/16 09:00 Active 0 each TOP DAILY Ondansetron [Zofran] Med 12/14/16 11:46 Active 4 mg IVPUSH Q4H PRN Pantoprazole [ProTONIX IV] Med 12/14/16 16:00 Active 40 mg IV Q24H Scopolamine [Transderm-Scop] Med 12/14/16 12:00 Active 1.5 mg TOP Q72H ceFAZolin [Ancef] 2 gm Med 12/15/16 11:15 Active Sodium Chloride 0.9% [Normal Saline] 50 ml IV ONCALL Pulse Oximetry Continuous Monitoring [OM.PC] Routine Oth 12/14/16 22:48 Ordered Sequential Compression Device [OM.PC] Routine Oth 12/14/16 11:55 Ordered Resuscitation Status Routine Resus Stat 12/14/16 11:55 Ordered Medication Orders Acetaminophen (Tylenol) 650 mg PO Q4H PRN PRN Reason: PAIN Acetaminophen (Tylenol) 650 mg PO Q4H PRN PRN Reason: PAIN Acetaminophen (Tylenol) 650 mg PO Q6H PRN PRN Reason: Pain Epinephrine HCl (Adrenalin 1:1000) 0.3 mg IM ASDIRECTED PRN PRN Reason: ALLERGIES Hydromorphone HCl (Dilaudid Supervisor Cd Area 15 Mg In Ns 30 Ml) 0 mg IV ASDIRECTED PRN; Protocol PRN Reason: COIN COLLECTOR PAIN CONTROL Last Admin: 12/14/16 11:49 Dose: 15 mg Dextrose/Lactated Ringer's (Dextrose 5%-Lactated Ringers) 1,000 mls @ 100 mls/ hr IV ASDIRECTED SARAHY Last Admin: 12/15/16 07:53 Dose: 100 mls/hr Infusion: 12/15/16 07:41 Dose: 100 mls/hr Admin: 12/14/16 21:41 Dose: 100 mls/hr Cefazolin Sodium 2 gm/ Sodium (Chloride) 50 mls @ 100 mls/hr IV ONCALL ONE Stop: 12/15/16 11:44 Lidocaine (Lidoderm 5%) 700 mg TRDERM DAILY PRN PRN Reason: PAIN Naloxone HCl (Narcan) 0.1 mg IV ASDIRECTED PRN PRN Reason: decreased respiratory rate Scopalamine Patch (Check) 0 each TOP DAILY SARAHY Last Admin: 12/15/16 08:17 Dose: Ondansetron HCl (Zofran) 4 mg IVPUSH Q4H PRN PRN Reason: NAUSEA Last Admin: 12/15/16 07:53 Dose: 4 mg Admin: 12/15/16 04:37 Dose: 4 mg Admin: 12/15/16 00:29 Dose: 4 mg Admin: 12/14/16 20:23 Dose: 4 mg Admin: 12/14/16 15:27 Dose: 4 mg Pantoprazole Sodium (Protonix Iv) 40 mg IV Q24H SARAHY Last Admin: 12/14/16 16:56 Dose: 40 mg Scopolamine (Transderm-Scop) 1.5 mg TOP Q72H [facility] Last Admin: 12/14/16 13:44 Dose: 1.5 mg - Assessment Assessment (Free Text/Narrative):: Fluid collection in the left anterior abdomen Nausea Dehydration - Plan Plan (Free Text/Narrative):: Ultrasound guided drainage of intra-abdominal fluid collection scheduled for today. Ancef 2 gm IV. NPO for surgery. Scopolamine patch check. PREM [facility]-Student
[2016-12-15] MEDS ORDERED: ceFAZolin 2 GM in Sodium Chloride 0.9% 50 ML IV ONE (11:15)
[2016-12-15] MEDS ORDERED: Propofol 200 MG/20 ML SDV ONE (12:40)
[2016-12-15] MEDS ORDERED: Glycopyrrolate 0.2 MG/ML 5 ML MDV ONE (12:40)
[2016-12-15] MEDS ORDERED: Dexamethasone 4 MG/ML SDV ONE (12:40)
[2016-12-15] MEDS ORDERED: Ondansetron 4 MG/2 ML SDV ONE (12:40)
[2016-12-15] MEDS ORDERED: Neostigmine Methylsulfate 1 MG/ML 5 ML Syringe ONE (12:40)
[2016-12-15] MEDS ORDERED: Succinylcholine 200 MG/10 ML MDV ONE (12:40)
[2016-12-15] MEDS ORDERED: Rocuronium 50 MG/5 ML Vial ONE (12:40)
[2016-12-15] MEDS ORDERED: fentaNYL 250 MCG/5 ML SDV ONE (12:45)
[2016-12-15] MEDS ORDERED: Lactated Ringers 1,000 ML ONE (14:08)
[2016-12-15] MEDS: Pantoprazole 40 MG Vial IV SCH (15:48)
[2016-12-15] MEDS ORDERED: Cyclobenzaprine 10 MG Tab PO PRN (16:34)
[2016-12-15] MEDS ORDERED: hydrOXYzine HCl 25 MG Tab PO PRN (16:36)
[2016-12-15] MEDS ORDERED: hydrOXYzine HCl 100 MG/2 ML SDV IM PRN (16:36)
[2016-12-15] MEDS: Acetaminophen 160 MG Tab,Disintegrating PO PRN (19:47)
[2016-12-15] MEDS: ceFAZolin 2 GM in Sodium Chloride 0.9% 50 ML IV SCH (19:49)
[2016-12-15] MEDS: HYDROmorphone/Normal Saline 15 MG/30 ML PCA IV PRN (22:52)
[2016-12-16] MEDS: Acetaminophen 160 MG Tab,Disintegrating PO PRN ×5 (00:33→23:26)
[2016-12-16] MEDS: ceFAZolin 2 GM in Sodium Chloride 0.9% 50 ML IV SCH ×2 (03:58→11:43)
[2016-12-16] MEDS: Ondansetron 4 MG Tab.DIS PO PRN ×3 (07:30→16:55)
[2016-12-16] MEDS: SCOPALAMINE PATCH CHECK TOP SCH (08:19)
[2016-12-16] MEDS ORDERED: Dextrose 5%-Lactated Ringers 1,000 ML IV SCH (10:15)
--- NOTE | 2016-12-16 14:14 | PCM.SURGPN ---
- General Info Date of Service: 12/16/16 Date of Surgery/Procedure: 12/15/16 POD#: 1 Post-Op Diagnosis: US Guided Drainage of Abdominal Fluid Admission Diagnosis/Problem: Seroma Functional Status: Reports: Pain Controlled, Tolerating Diet, Ambulating, Urinating - Review of Systems General: Reports: No Symptoms HEENT: Reports: No Symptoms Pulmonary: Reports: No Symptoms Cardiovascular: Reports: No Symptoms Gastrointestinal: Reports: Abdominal Pain (incison area ) Genitourinary: Reports: No Symptoms Musculoskeletal: Reports: No Symptoms Skin: Reports: No Symptoms Neurological: Reports: No Symptoms Psychiatric: Reports: No Symptoms Systems Review Comment:: Carolyn reports that she is feeling better today. She states that her abdominal pain has improved since yesterday, only has pain at the incision site. She states that she continues to feel nauseated, however mirian has been helping with this. She states that her IV site is getting painful and has had previous ones infiltrate. She denies having any additional concerns at this time. - Patient Data Vitals - Most Recent: Last Vital Signs Temp 35.5 C 12/16/16 11:18 Pulse 56 L 12/16/16 11:18 Resp 16 12/16/16 11:18 BP 107/63 12/16/16 11:18 Pulse Ox 100 12/16/16 13:22 Weight - Most Recent: 60.373 kg I&O - Last 24 Hours: Intake & Output 12/15/16 12/16/16 12/16/16 22:59 06:59 14:59 Intake Total 2214 1211 590 Output Total 024 533 1255 Balance 1664 861 -610 Dereje Results Last 24 Hrs: Microbiology 12/15/16 14:15 Gram Stain - Final Abdominal Fluid - Aspirate Med Orders - Current: Current Medications Acetaminophen (Tylenol) 650 mg PO Q4H PRN PRN Reason: PAIN Acetaminophen (Tylenol) 650 mg PO Q6H PRN PRN Reason: Pain Acetaminophen (Tylenol Jr. Meltaways) 640 mg PO Q4H PRN PRN Reason: Pain Last Admin: 12/16/16 12:54 Dose: 640 mg Cyclobenzaprine HCl (Flexeril) 10 mg PO Q8H PRN PRN Reason: MUSCLE SPASM Last Admin: 12/16/16 04:02 Dose: 10 mg Epinephrine HCl (Adrenalin 1:1000) 0.3 mg IM ASDIRECTED PRN PRN Reason: ALLERGIES Hydromorphone HCl (Dilaudid Senior Salesforce Developer 15 Mg In Ns 30 Ml) 0 mg IV ASDIRECTED PRN; Protocol PRN Reason: WARES SORTER PAIN CONTROL Last Admin: 12/15/16 22:52 Dose: 15 mg Hydromorphone HCl (Dilaudid) 2 - 4 mg PO Q4H PRN PRN Reason: Pain Hydroxyzine HCl (Atarax) 100 mg PO Q4H PRN PRN Reason: PAIN Hydroxyzine HCl (Vistaril) 100 mg IM Q4H PRN PRN Reason: PAIN Dextrose/Lactated Ringer's (Dextrose 5%-Lactated Ringers) 1,000 mls @ 0 mls/hr IV ASDIRECTED SARAHY PRN Reason: KVO Lidocaine (Lidoderm 5%) 700 mg TRDERM DAILY PRN PRN Reason: PAIN Naloxone HCl (Narcan) 0.1 mg IV ASDIRECTED PRN PRN Reason: decreased respiratory rate Scopalamine Patch (Check) 0 each TOP DAILY [facility] Last Admin: 12/16/16 08:19 Dose: Not Given Ondansetron HCl (Zofran) 4 mg IVPUSH Q4H PRN PRN Reason: NAUSEA Last Admin: 12/15/16 22:33 Dose: 4 mg Ondansetron HCl (Zofran Odt) 4 mg PO Q4H PRN PRN Reason: Nausea/Vomiting Last Admin: 12/16/16 11:43 Dose: 4 mg Pantoprazole Sodium (Protonix) 40 mg PO Q24H [facility] Scopolamine (Transderm-Scop) 1.5 mg TOP Q72H [facility] Last Admin: 12/14/16 13:44 Dose: 1.5 mg Discontinued Medications Acetaminophen (Tylenol) 650 mg PO Q4H PRN PRN Reason: PAIN Bupivacaine HCl (Marcaine 0.5%) Confirm Administered Dose 50 ml .ROUTE .STK-MED ONE Stop: 12/15/16 08:51 Last Admin: 12/15/16 14:31 Dose: 7.5 ml Dexamethasone (Dexamethasone) Confirm Administered Dose 4 mg .ROUTE .STK-MED ONE Stop: 12/15/16 12:41 Fentanyl (Sublimaze) Confirm Administered Dose 250 mcg .ROUTE .STK-MED ONE Stop: 12/15/16 12:46 Glycopyrrolate (Robinul) Confirm Administered Dose 1 mg .ROUTE .STK-MED ONE Stop: 12/15/16 12:41 Dextrose/Lactated Ringer's (Dextrose 5%-Lactated Ringers) 1,000 mls @ 100 mls/ hr IV ASDIRECTED [facility] Last Admin: 12/15/16 22:17 Dose: 100 mls/hr Cefazolin Sodium 2 gm/ Sodium (Chloride) 50 mls @ 100 mls/hr IV ONCALL ONE Stop: 12/15/16 11:44 Last Admin: 12/15/16 13:29 Dose: 100 mls/hr Lactated Ringer's (Ringers, Lactated) Confirm Administered Dose 1,000 mls @ as directed .ROUTE .STK-MED ONE Stop: 12/15/16 14:09 Cefazolin Sodium 2 gm/ Sodium (Chloride) 50 mls @ 100 mls/hr IV Q8H [facility] Stop: 12/16/16 12:29 Last Admin: 12/16/16 11:43 Dose: 100 mls/hr Lidocaine/Epinephrine (Xylocaine 1% With Epinephrine 1:100,000) Confirm Administered Dose 50 ml .ROUTE .STK-MED ONE Stop: 12/15/16 08:52 Last Admin: 12/15/16 14:31 Dose: 7.5 ml Meropenem (Merrem) Confirm Administered Dose 500 mg .ROUTE .STK-MED ONE Stop: 12/15/16 08:51 Last Admin: 12/15/16 14:00 Dose: 500 mg Neostigmine Methylsulfate (Neostigmine) Confirm Administered Dose 5 mg .ROUTE .STK-MED ONE Stop: 12/15/16 12:41 Ondansetron HCl (Zofran) Confirm Administered Dose 4 mg .ROUTE .STK-MED ONE Stop: 12/15/16 12:41 Pantoprazole Sodium (Protonix Iv) 40 mg IV Q24H [facility] Last Admin: 12/15/16 15:48 Dose: 40 mg Propofol (Diprivan 20 Ml) Confirm Administered Dose 200 mg .ROUTE .STK-MED ONE Stop: 12/15/16 12:41 Rocuronium Aurora (Zemuron) Confirm Administered Dose 50 mg .ROUTE .STK-MED ONE Stop: 12/15/16 12:41 Succinylcholine Chloride (Quelicin) Confirm Administered Dose 200 mg .ROUTE .STK -MED ONE Stop: 12/15/16 12:41 - Exam Wound/Incisions: Healing Well Quality Assessment: DVT Prophylaxis General: Alert, Oriented, No Acute Distress HEENT: Pupils Equal, Pupils Reactive Neck: Supple Lungs: Clear to Auscultation, Normal Respiratory Effort Cardiovascular: Regular Rate, Regular Rhythm GI/Abdominal Exam: Soft, Tender (incision site) Extremities: Normal Inspection, Normal Range of Motion Skin: Warm, Dry, Intact Neurological: No New Focal Deficit Psy/Mental Status: Alert, Normal Affect, Normal Mood - Problem List & Annotations (1) Abdominal pain SNOMED Code(s): 07420366 Code(s): R10.9 - UNSPECIFIED ABDOMINAL PAIN Status: Acute Current Visit: Yes - Problem List Review Problem List Initiated/Reviewed/Updated: Yes - My Orders Last 24 Hours: Active Orders 24 hr Category Date Time Status Communication Order [RC] ASDIRECTED Care 12/16/16 13:21 Active May Shower [RC] ASDIRECTED Care 12/16/16 08:53 Active Consult to Auction Clerk [CONS] Routine Cons 12/15/16 16:44 Active Bariatric Diet [DIET] Diet 12/15/16 Dinner Active CULTURE ANAEROBIC [RM] Routine Lab 12/15/16 14:15 Results CULTURE WOUND + SMEAR [RM] Stat Lab 12/15/16 14:15 Results Acetaminophen [Tylenol Jr. Meltaways] Med 12/15/16 19:31 Active 640 mg PO Q4H PRN Cyclobenzaprine [Flexeril] Med 12/15/16 16:34 Active 10 mg PO Q8H PRN Dextrose 5%-Lactated Ringers 1,000 ml Med 12/16/16 10:15 Active IV ASDIRECTED HYDROmorphone [Dilaudid] Med 12/16/16 13:21 Active 2 - 4 mg PO Q4H PRN Ondansetron [Zofran ODT] Med 12/16/16 07:20 Active 4 mg PO Q4H PRN Pantoprazole [ProTONIX] Med 12/16/16 16:30 Active 40 mg PO Q24H hydrOXYzine HCl [Atarax] Med 12/15/16 16:36 Active 100 mg PO Q4H PRN hydrOXYzine HCl [Vistaril] Med 12/15/16 16:36 Active 100 mg IM Q4H PRN Remove Dressing [OM.PC] Routine Oth 12/16/16 08:52 Ordered Medication Orders Acetaminophen (Tylenol) 650 mg PO Q4H PRN PRN Reason: PAIN Acetaminophen (Tylenol) 650 mg PO Q6H PRN PRN Reason: Pain Acetaminophen (Tylenol Jr. Meltaways) 640 mg PO Q4H PRN PRN Reason: Pain Last Admin: 12/16/16 12:54 Dose: 640 mg Admin: 12/16/16 04:15 Dose: 640 mg Admin: 12/16/16 00:33 Dose: 640 mg Admin: 12/15/16 19:47 Dose: 640 mg Cyclobenzaprine HCl (Flexeril) 10 mg PO Q8H PRN PRN Reason: MUSCLE SPASM Last Admin: 12/16/16 04:02 Dose: 10 mg Epinephrine HCl (Adrenalin 1:1000) 0.3 mg IM ASDIRECTED PRN PRN Reason: ALLERGIES Hydromorphone HCl (Dilaudid Senior Salesforce Developer 15 Mg In Ns 30 Ml) 0 mg IV ASDIRECTED PRN; Protocol PRN Reason: WARES SORTER PAIN CONTROL Last Admin: 12/15/16 22:52 Dose: 15 mg Admin: 12/14/16 11:49 Dose: 15 mg Hydromorphone HCl (Dilaudid) 2 - 4 mg PO Q4H PRN PRN Reason: Pain Hydroxyzine HCl (Atarax) 100 mg PO Q4H PRN PRN Reason: PAIN Hydroxyzine HCl (Vistaril) 100 mg IM Q4H PRN PRN Reason: PAIN Dextrose/Lactated Ringer's (Dextrose 5%-Lactated Ringers) 1,000 mls @ 0 mls/hr IV ASDIRECTED SARAH[facility] PRN Reason: KVO Lidocaine (Lidoderm 5%) 700 mg TRDERM DAILY PRN PRN Reason: PAIN Naloxone HCl (Narcan) 0.1 mg IV ASDIRECTED PRN PRN Reason: decreased respiratory rate Scopalamine Patch (Check) 0 each TOP DAILY [facility] Last Admin: 12/16/16 08:19 Dose: Admin: 12/15/16 08:17 Dose: Ondansetron HCl (Zofran) 4 mg IVPUSH Q4H PRN PRN Reason: NAUSEA Last Admin: 12/15/16 22:33 Dose: 4 mg Admin: 12/15/16 07:53 Dose: 4 mg Admin: 12/15/16 04:37 Dose: 4 mg Admin: 12/15/16 00:29 Dose: 4 mg Admin: 12/14/16 20:23 Dose: 4 mg Admin: 12/14/16 15:27 Dose: 4 mg Ondansetron HCl (Zofran Odt) 4 mg PO Q4H PRN PRN Reason: Nausea/Vomiting Last Admin: 12/16/16 11:43 Dose: 4 mg Admin: 12/16/16 07:30 Dose: 4 mg Pantoprazole Sodium (Protonix) 40 mg PO Q24H [facility] Scopolamine (Transderm-Scop) 1.5 mg TOP Q72H [facility] Last Admin: 12/14/16 13:44 Dose: 1.5 mg - Assessment Assessment (Free Text/Narrative):: Status post Ultrasound guided drainage of abdominal fluid. - Plan Plan (Free Text/Narrative):: 1. D/C WARES SORTER and start on oral pain medication. Dilaudid 2-4 mg q 4 hours prn for pain. 2. Zofran 4 mg PO q 4 hours prn for nausea and vomiting. 3. Pantoprazole 40 mg PO dailly. 4. Remove dressing and she may shower. 5. D5LR IV to TKO. If IV infiltrates, may remove. PREM Jewell Student
[2016-12-16] MEDS ORDERED: Pantoprazole 40 MG Tab.CR PO SCH (16:30)
[2016-12-16] MEDS ORDERED: Lansoprazole 30 MG Orally Disintegrating Tab.CR PO SCH (17:00)
[2016-12-16] MEDS: HYDROmorphone 2 MG Tab PO PRN (21:53)
[2016-12-17 02:14] VITALS: BP 113/60
[2016-12-17] MEDS: HYDROmorphone 2 MG Tab PO PRN ×2 (02:17→10:20)
[2016-12-17] MEDS: Acetaminophen 160 MG Tab,Disintegrating PO PRN (07:24)
[2016-12-17] MEDS: Ondansetron 4 MG Tab.DIS PO PRN (07:30)
[2016-12-17] MEDS: Scopolamine 1.5 MG Transdermal Patch TOP SCH (09:02)
[2016-12-17] MEDS ORDERED: Magnesium Hydroxide 400 MG/5 ML Susp 30 ML Cup PO PRN (10:29)
[2016-12-17] MEDS: SCOPALAMINE PATCH CHECK TOP SCH (10:45)
--- NOTE | 2016-12-17 17:07 | DISCH ---
FINAL DIAGNOSES: 1. Inflammatory intraabdominal fluid collection with surrounding peritonitis. 2. Bariatric surgery status. 3. History of lupus. 4. History of prolactinoma. 5. History of seizure disorder. OPERATIVE PROCEDURE: This was done on 12/15, intraoperative ultrasound followed by limited laparotomy with; 1. Drainage of inflammatory fluid collection underneath the abdominal wall. 2. Placement of Interceed mesh to displace viscera from the pelvic and abdominal wall to limit recurrent adhesion formation. HOSPITAL COURSE: This is a 56-year-old female presenting with some acutely worsening discomfort located in the left mid abdomen. A CT scan was noted to have a fluid collection in the area underneath the abdominal wall, i.e. extending into the intraperitoneal location. No other specific abnormalities were noted. The following day, the patient underwent drainage of that area through a small laparotomy. Preoperative ultrasound was done to caio the ideal location for the incision. The fluid was dark serous fluid and did not have anything on Gram stain or culture, i.e. was sterile inflammatory fluid collection, but there was some associated peritonitis in that area. Postoperatively, the patient is quite better despite the new incision and will be discharged home with Dilaudid 2 mg q.4 hours p.r.n. pain alternating with Tylenol #40 otherwise continue her usual home meds and follow up with Gail Pedro with [facility] on 12/26/2016.
--- NOTE | 2016-12-21 10:00 | OR ---
DATE OF PROCEDURE: 12/15/2016 PREOPERATIVE DIAGNOSES: Focal abdominal pain associated with underlying fluid collection. POSTOPERATIVE DIAGNOSES: Inflammatory fluid collection in the left mid abdomen with extensive intraabdominal adhesions. OPERATIVE PROCEDURE: 1. Intraoperative ultrasound to identify the fluid collection seen on CT scan (18605). 2. Limited laparotomy with:. a. Drainage of focal inflammatory fluid collection (12522). b. Placement of Interceed mesh to displace small bowel from pelvic and abdominal wall to limit recurrent adhesion formation (14685). ANESTHESIA: General. PRESSURIZER: Gail Pedro PA-C and [employer]. INDICATION FOR PROCEDURE: A 56-year-old female presenting with increasing abdominal pain, particularly in the area just to left side of the mid abdomen. This is associated with CT scan showing us some intraperitoneal fluid collection just underneath the abdominal wall. The plan is to proceed with identification of this by ultrasound to facilitate accurate incision placement, followed by limited laparotomy and drainage of that area. This may be infected, in which case the skin may need to be left open. Potential risks including bleeding, infection, injury to underlying viscera, possible recurrence of problems over time as well as remote possibility of cardiopulmonary, septic, or hemorrhagic complications leading to were discussed, and the patient wishes to proceed. DETAILS OF PROCEDURE: The patient was taken to the operating room and placed in a supine position. After general endotracheal anesthetic was induced, the abdominal ultrasound was completed. This showed the area of containing the fluid collection just inside the peritoneal space in the left mid abdomen. This was marked and was consistent with what was being seen on CT scan. The abdomen was then prepped and draped. A limited midline laparotomy extending from a point just medial to the fluid collection, to a point somewhat inferiorly was made. This was carried down through the skin and subcutaneous tissue in inferior abdominal location. There were quite extensive adhesions in that area. These were gradually taken down with no visceral injury being evident. The fluid collection was then drained. This appeared to be around 15 mL of a dark serous fluid. It did not appear to be grossly infected, but cultures were obtained. There was focal peritonitis around the fluid collection, however, not consistent with the patient's preoperative symptoms and exam. Thereafter, this draining was completed, the area was thoroughly examined, no additional abnormalities being identified. An Interceed mesh was then placed along the pelvic surfaces, up against the abdominal wall to limit recurrent adhesion formation and the midline fascia was then approximated with #2 Vicryl stitch. The skin was closed with a deep layer of 4-0 Vicryl stitch in the subdermal layer, and murtaza for the skin. Dressing was applied. The patient was taken to the recovery room in satisfactory condition. Kit Duke MD /[id number]
--- NOTE | 2016-12-21 10:06 | OR ---
DATE OF PROCEDURE: 12/15/2016 ADDENDUM: Physician accounting administrative assistant, Gail Pedro played an essential role in assisting in this case, helping to position the patient, retract structures as needed, as well as suturing and stapling as indicated. Her presence improved patient's safety and decreased operative time. Kit Duke MD /[id number]
== END 2016-12-17 10:47 | disposition home or self-care (01) | DRG 337 ==
LOC: JP.2SS 10:48
PROVIDERS: ADMIT Surgery; ATTEND Surgery
PROC: 3E0M05Z Introduction of Adhesion Barrier into Peritoneal Cavity, Open Approach (ICD-10-PCS; principal; 2016-12-15)
PROC: 0W9G0ZX Drainage of Peritoneal Cavity, Open Approach, Diagnostic (ICD-10-PCS; principal; 2016-12-15)
PROC: 0DNW0ZZ Release Peritoneum, Open Approach (ICD-10-PCS; principal; 2016-12-15)
DX: K65.1 Peritoneal abscess (principal); E86.0 Dehydration; Z99.81 Dependence on supplemental oxygen; M32.9 Systemic lupus erythematosus, unspecified; E53.8 Deficiency of other specified B group vitamins; M19.90 Unspecified osteoarthritis, unspecified site; Z86.73 Personal history of transient ischemic attack (TIA), and cerebral infarction without residual deficits; M54.9 Dorsalgia, unspecified; G89.29 Other chronic pain; K59.09 Other constipation; K21.9 Gastro-esophageal reflux disease without esophagitis; Z85.72 Personal history of non-Hodgkin lymphomas; Z98.84 Bariatric surgery status; Z91.030 Bee allergy status; Z88.5 Allergy status to narcotic agent; Z88.8 Allergy status to other drugs, medicaments and biological substances; K66.0 Peritoneal adhesions (postprocedural) (postinfection); K65.8 Other peritonitis
CPT/HCPCS: 36415; 76998; 80053; 83735; 84100; 85025; 87070; 87075; 87077; 87186; 87205; 94762; A9270-GY; C9113; J0330; J0690; J1100; J1170; J2185; J2405; J2704; J2710; J3010; J7042; J7050; J7120

== ENCOUNTER 2017-01-03 10:46 | Inpatient (IN) | payer MEDICARE, OTHER ==
[2017-01-03] MEDS ORDERED: Acetaminophen 325 MG Tab PO PRN (11:27)
[2017-01-03] MEDS ORDERED: EPINEPHrine 1 MG/ML SDV IM PRN (11:27)
[2017-01-03] MEDS ORDERED: Lidocaine 5% 700 MG Patch TOP PRN (11:27)
[2017-01-03] MEDS ORDERED: Naloxone 0.4 MG/ML SDV IV PRN (11:54)
[2017-01-03] MEDS ORDERED: Acetaminophen 650 MG Supp RECTAL PRN (12:05)
[2017-01-03] MEDS: Dextrose 5%-Lactated Ringers 1,000 ML IV SCH (13:10)
[2017-01-03] MEDS: HYDROmorphone/Normal Saline 15 MG/30 ML PCA IV PRN (13:11)
[2017-01-03] MEDS: Scopolamine 1.5 MG Transdermal Patch TRDERM SCH ×2 (13:22→21:51)
[2017-01-03] MEDS: Ondansetron 4 MG Tab.DIS PO PRN ×2 (13:25→18:00)
[2017-01-03] MEDS: Pantoprazole 40 MG Vial IV SCH (13:26)
[2017-01-03] MEDS ORDERED: Thiamine 200 MG/2 ML MDV IM SCH (14:00)
[2017-01-03] MEDS ORDERED: Cyanocobalamin (Vitamin B12) 1,000 MCG/ML SDV IM SCH (14:00)
[2017-01-03] MEDS: Ciprofloxacin in D5W 400 MG in Premix Bag 1 BAG IV SCH ×2 (14:09)
[2017-01-03] MEDS: Acetaminophen 160 MG Tab,Disintegrating PO PRN ×2 (18:07→21:56)
[2017-01-03] MEDS: Lactobacillus Rhamnosus GG (Probiotic) Cap PO SCH (21:50)
[2017-01-04] MEDS: Ciprofloxacin in D5W 400 MG in Premix Bag 1 BAG IV SCH ×4 (01:07→13:15)
[2017-01-04] MEDS: Dextrose 5%-Lactated Ringers 1,000 ML IV SCH ×3 (01:08→18:21)
[2017-01-04] MEDS: Acetaminophen 160 MG Tab,Disintegrating PO PRN ×3 (03:15→22:36)
[2017-01-04] MEDS ORDERED: Iohexol 300 MG/ML 30 ML Bottle PO ONE ×2 (06:21→07:10)
[2017-01-04] MEDS ORDERED: Iopamidol 755 Mg/ML 100 ML Bottle IV SCH (06:30)
[2017-01-04] MEDS ORDERED: Sodium Chloride 0.9% 100 ML IV SCH (06:30)
[2017-01-04] MEDS ORDERED: Iopamidol 612 MG/ML 100 ML Bottle IV PRN (07:10)
[2017-01-04] MEDS ORDERED: Sodium Chloride 0.9% 10 ML Syringe FLUSH ONE (07:10)
[2017-01-04] MEDS: Ondansetron 4 MG Tab.DIS PO PRN ×2 (07:59→18:26)
--- NOTE | 2017-01-04 09:22 | CT ---
Abdomen pelvis CT. History: Abdominal pain. Eval for incisional abscess. Technique: IV and oral contrast were administered followed by axial imaging from the lung bases exten ding through the abdomen and pelvis. Coronal images were reconstructed. Total DLP: 532. Comparison: 09 December 2016. Findings: There is a midline lower abdominal surgical incision. Deep to the incision is a subcutaneou s fluid collection measuring 4.4 x 2.9 cm. The finding is most consistent with a abscess of the subcu taneous tissues. There is a tract which extends intra-abdominal into a larger collection of encapsula donna fluid. This fluid collection is new measuring 6.4 x 3.2 x 8.1 cm. The fluid is contained by an en hancing wall. There is induration of the adjacent abdominal fat. Limited evaluation of the lower lung godinez demonstrates no abnormalities. The liver is stable. The g allbladder is surgically absent. The pancreas is unremarkable. There are stable postsurgical changes consistent with a [place]-en-Y gastric bypass. The kidneys demonstrate symmetric excretion of contrast. There is no hydronephrosis. Impression: 1. There has been interval development of a intra-abdominal abscess underlying the abdominal wall mus culature. There is a tract which communicates with the smaller subcutaneous abscess at the site of th e surgical incision.
[2017-01-04] MEDS: Lactobacillus Rhamnosus GG (Probiotic) Cap PO SCH ×2 (09:32→20:05)
[2017-01-04] MEDS: Multivitamins with Iron/Calcium/Folic Acid/Minerals Tab PO SCH ×2 (09:32→09:39)
[2017-01-04] MEDS: VERIFY SCOPOLAMINE PATCH TOP SCH (09:33)
[2017-01-04] MEDS: Pantoprazole 40 MG Vial IV SCH (13:20)
--- NOTE | 2017-01-04 17:55 | PN ---
DATE OF SERVICE: 01/04/2017 SUBJECTIVE: Carolyn was admitted yesterday for evaluation and treatment of incisional abscess. She has been afebrile. White count was 7.11. Reports pain is a 5/10. 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 She is drinking contrast for her CT scan later this morning. REVIEW OF SYSTEMS: Remainder of review of systems are negative for any pertinent positives and negatives. OBJECTIVE: GENERAL: Carolyn Hanks is a 56-year-old female. VITAL SIGNS: TPR is 97.3, 51, 20, and blood pressure 132/58. HEENT: Negative. NECK: Supple. HEART: Regular rate and rhythm. LUNGS: Clear. ABDOMEN: Incision on the top remains to be red and firm about 1 inch. The area to the right of her abdomen in the lower incision is about 4 inches x 4 inches and there has been no change since she has been hospitalized and started on antibiotics. EXTREMITIES: Without peripheral edema. ASSESSMENT: Intraabdominal abscess underlying the abdominal wall. PLAN: Call Kit Duke MD, with results of CT scan. Orders to be written post CT scan, we will evaluate p.r.n. or in a.m. Gail Pedro PA-C /[id number]
[2017-01-05] MEDS: Ondansetron 4 MG Tab.DIS PO PRN (00:42)
[2017-01-05] MEDS: Ciprofloxacin in D5W 400 MG in Premix Bag 1 BAG IV SCH ×4 (01:59→14:29)
[2017-01-05] MEDS ORDERED: Lidocaine 1% with EPINEPHrine 1:100,000 50 ML MDV ONE (06:54)
[2017-01-05] MEDS ORDERED: Bupivacaine 0.5% 50 ML MDV ONE (06:54)
[2017-01-05] MEDS ORDERED: Propofol 200 MG/20 ML SDV ONE (08:15)
[2017-01-05] MEDS ORDERED: Midazolam 1 MG/ML 2 ML SDV ONE (08:15)
[2017-01-05] MEDS ORDERED: fentaNYL 100 MCG/2 ML SDV ONE (08:15)
--- NOTE | 2017-01-05 08:31 | PN ---
DATE OF SERVICE: 01/05/2017 SUBJECTIVE: Carolyn is n.p.o. She will be having an ultrasound-guided drainage tube put in that incision on this morning and placement of central line for inadequate venous access. Vital signs have been stable. Her pain is controlled. REVIEW OF SYSTEMS: Remainder of review of systems negative for any pertinent positives and negatives. OBJECTIVE: GENERAL: Carolyn Hanks is a pleasant 56-year-old female. VITAL SIGNS: TPR is 97.2, 77, 16, blood pressure 121/61. HEENT: Negative. NECK: Supple. HEART: Regular rate and rhythm. LUNGS: Clear. ABDOMEN: No change in vision as far as the redness and firmness. EXTREMITIES: Without peripheral edema. ASSESSMENT: Intraabdominal abscess underlying the abdominal wall. PLAN: 1. Orders to be written postoperatively. 2. We will evaluate p.r.n. or in a.m. Gail Pedro PA-C /[id number]
[2017-01-05] MEDS ORDERED: Linezolid 200 MG/100 ML Bag IRR ONE (10:30)
[2017-01-05] MEDS: VERIFY SCOPOLAMINE PATCH TOP SCH (10:56)
[2017-01-05] MEDS: Lactobacillus Rhamnosus GG (Probiotic) Cap PO SCH ×2 (10:56→20:34)
[2017-01-05] MEDS: Multivitamins with Iron/Calcium/Folic Acid/Minerals Tab PO SCH (10:57)
--- NOTE | 2017-01-05 11:30 | CR ---
Chest 1V Frontal FINDINGS: There is been placement of a left central venous catheter. The tip descends down the SVC wi th the tip located at SVC junction with the right atrium. The heart and vascular structures are lisa l in appearance. No infiltrates or effusions are demonstrated. The skeletal structures are unremarkab le. IMPRESSION: 1. Left central venous catheter in good position. 2. Otherwise negative exam.
[2017-01-05] MEDS: cefOXitin 2 GM in Sodium Chloride 0.9% 50 ML IV SCH ×3 (14:24→20:34)
[2017-01-05] MEDS: Dextrose 5%-Lactated Ringers 1,000 ML IV SCH (14:26)
[2017-01-05] MEDS: Pantoprazole 40 MG Vial IV SCH (14:29)
[2017-01-05] MEDS: Acetaminophen 160 MG Tab,Disintegrating PO PRN ×2 (14:39→18:45)
[2017-01-05] MEDS: HYDROmorphone/Normal Saline 15 MG/30 ML PCA IV PRN (16:31)
[2017-01-06] MEDS: Ciprofloxacin in D5W 400 MG in Premix Bag 1 BAG IV SCH ×4 (00:29→12:15)
[2017-01-06] MEDS: Dextrose 5%-Lactated Ringers 1,000 ML IV SCH ×2 (00:29→17:39)
[2017-01-06] MEDS: Acetaminophen 160 MG Tab,Disintegrating PO PRN ×4 (00:34→19:17)
[2017-01-06] MEDS: cefOXitin 2 GM in Sodium Chloride 0.9% 50 ML IV SCH ×4 (03:19→19:17)
--- NOTE | 2017-01-06 09:07 | PN ---
DATE OF SERVICE: 01/06/2017 SUBJECTIVE: Carolyn is postop day #1. Her pain is controlled. She has been up ambulating. Vital signs have been stable. REVIEW OF SYSTEMS: Remainder of review of systems negative for any pertinent positives or negatives. OBJECTIVE: GENERAL: Carolyn Hanks is a 56-year-old female. She is alert and oriented. VITAL SIGNS: TPR 97.9, 65, 18. Blood pressure 162/68. HEENT: Negative. NECK: Supple. HEART: Regular rate and rhythm. LUNGS: Clear. ABDOMEN: Dressings dry and intact. One LACIE drain drained 15 mL of a light pink serosanguineous drainage. Abdominal binder is on. EXTREMITIES: Without peripheral edema. ASSESSMENT: Ultrasound-guided aspiration of inter-abdominal abscess, limited laparotomy with drainage of inter-abdominal abscess, closure of enterotomy involving the small bowel. Date of surgery, 01/05/2017. PLAN: 1. Start dressing changes. Pack with four 4x4s b.i.d. Cover with ABD, secure in place. 2. Full liquid diet. 3. Good pulmonary toilet. 4. We will evaluate p.r.n. or in a.m. Gail Pedro PA-C /[id number]
[2017-01-06] MEDS: Lactobacillus Rhamnosus GG (Probiotic) Cap PO SCH ×2 (09:14→20:19)
[2017-01-06] MEDS: Ondansetron 4 MG Tab.DIS PO PRN (09:18)
[2017-01-06] MEDS: Multivitamins with Iron/Calcium/Folic Acid/Minerals Tab PO SCH (09:19)
[2017-01-06] MEDS: VERIFY SCOPOLAMINE PATCH TOP SCH (09:21)
[2017-01-06] MEDS: Scopolamine 1.5 MG Transdermal Patch TRDERM SCH (12:56)
[2017-01-06] MEDS: Pantoprazole 40 MG Vial IV SCH (12:56)
[2017-01-07] MEDS: Acetaminophen 160 MG Tab,Disintegrating PO PRN ×5 (00:02→19:28)
[2017-01-07] MEDS: Ciprofloxacin in D5W 400 MG in Premix Bag 1 BAG IV SCH ×4 (00:24→12:57)
[2017-01-07] MEDS: cefOXitin 2 GM in Sodium Chloride 0.9% 50 ML IV SCH ×4 (01:41→19:27)
[2017-01-07] MEDS: Lactobacillus Rhamnosus GG (Probiotic) Cap PO SCH ×2 (08:27→20:41)
[2017-01-07] MEDS: Dextrose 5%-Lactated Ringers 1,000 ML IV SCH ×2 (08:28→22:29)
[2017-01-07] MEDS: Ondansetron 4 MG Tab.DIS PO PRN (08:31)
[2017-01-07] MEDS: VERIFY SCOPOLAMINE PATCH TOP SCH (08:47)
[2017-01-07] MEDS: Multivitamins with Iron/Calcium/Folic Acid/Minerals Tab PO SCH (08:47)
[2017-01-07] MEDS: Pantoprazole 40 MG Tab.CR PO SCH (12:07)
[2017-01-07] MEDS: HYDROmorphone/Normal Saline 15 MG/30 ML PCA IV PRN (12:52)
[2017-01-08] MEDS: Acetaminophen 160 MG Tab,Disintegrating PO PRN ×2 (00:08→04:54)
[2017-01-08] MEDS: Ciprofloxacin in D5W 400 MG in Premix Bag 1 BAG IV SCH ×4 (01:04→13:09)
[2017-01-08] MEDS: cefOXitin 2 GM in Sodium Chloride 0.9% 50 ML IV SCH ×4 (02:12→19:36)
[2017-01-08] MEDS ORDERED: Acetaminophen Soln 650 MG/20.3 ML UD Cup PO PRN (08:00)
[2017-01-08] MEDS: Pantoprazole 40 MG Tab.CR PO SCH (08:10)
[2017-01-08] MEDS: Lactobacillus Rhamnosus GG (Probiotic) Cap PO SCH ×2 (08:10→20:22)
[2017-01-08] MEDS: Multivitamins with Iron/Calcium/Folic Acid/Minerals Tab PO SCH (08:11)
[2017-01-08] MEDS: VERIFY SCOPOLAMINE PATCH TOP SCH (08:11)
[2017-01-08] MEDS: Ondansetron 4 MG Tab.DIS PO PRN ×2 (08:52→12:52)
--- NOTE | 2017-01-08 09:19 | PN ---
DATE OF SERVICE: 01/08/2017 SUBJECTIVE: Carolyn's pain has been controlled. She has been afebrile. She is up, ambulating. Dressing changes have been b.i.d. and they are going well. Incision looks good. She is having loose stools. Tolerating her full liquid diet. LACIE drain put out 15 mL of a light pink serosanguineous drainage. Oral intake 1100 and output is 22,350. OBJECTIVE: GENERAL: Carolyn Hanks is a pleasant 56-year-old female. VITAL SIGNS: TPR is 97.4, 68, 16. Blood pressure 157/73. HEENT: Negative. NECK: Supple. HEART: Regular rate and rhythm. LUNGS: Clear. ABDOMEN: Incision looks good. Dressing is dry and intact. LACIE drain is intact. EXTREMITIES: Without peripheral edema. ASSESSMENT: Ultrasound-guided aspiration of intraabdominal abscess, limited laparotomy with drainage of intraabdominal abscess, closure of enterostomy involving the small bowel. Date of surgery, 01/05/2017. Sensitivities are pending, yeast at 2 days. PLAN: 1. 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 2. Dilaudid 2 mg 1 to 2 q.4 hours p.r.n. pain. 3. IV TKO. 4. We will evaluate p.r.n. or in the a.m. 5. Plan discharge in the a.m. with home health care. Gail Pedro PA-C /[id number]
[2017-01-08] MEDS: HYDROmorphone 2 MG Tab PO PRN ×3 (10:37→19:37)
[2017-01-08] MEDS: ACETAMINOPHEN 160 MG PO PRN ×3 (12:54→21:42)
[2017-01-09] MEDS: HYDROmorphone 2 MG Tab PO PRN ×4 (00:05→12:56)
[2017-01-09] MEDS: Ciprofloxacin in D5W 400 MG in Premix Bag 1 BAG IV SCH ×4 (00:49→14:14)
[2017-01-09] MEDS: cefOXitin 2 GM in Sodium Chloride 0.9% 50 ML IV SCH ×2 (02:14→07:33)
[2017-01-09] MEDS: Ondansetron 4 MG Tab.DIS PO PRN (06:39)
[2017-01-09] MEDS: ACETAMINOPHEN 160 MG PO PRN (06:40)
[2017-01-09] MEDS: Pantoprazole 40 MG Tab.CR PO SCH (07:35)
--- NOTE | 2017-01-09 08:26 | PN ---
DATE OF SERVICE: 01/07/2017 SUBJECTIVE: Carolyn has been afebrile. She has been up and ambulating, has had loose stools, which is not uncommon for her. Pain is controlled. REVIEW OF SYSTEMS: Remainder of review of systems negative for any pertinent positives and negatives. OBJECTIVE: GENERAL: Carolyn Hanks is a pleasant 56-year-old female. She is alert and orientated. SKIN: Warm and dry. Color pale. VITAL SIGNS: TPR 98.8, 70, 18, and blood pressure 155/65. HEENT: Negative. NECK: Supple. HEART: Regular rate and rhythm. LUNGS: Clear. ABDOMEN: Dressings dry and intact. Abdominal binder is on. LACEI drain has put out 15 mL of a light pink serosanguineous drainage. EXTREMITIES: Without peripheral edema. ASSESSMENT: Ultrasound-guided aspiration of intraabdominal abscess, limited laparotomy with drainage of intraabdominal abscess, closure of enterotomy involving the small bowel. Date of surgery 01/05/2017. PLAN: 1. Continue same antibiotic therapy until culture and sensitivities are back. 2. Continue to do dressing changes b.i.d. 3. Full liquid diet to remain on for 2 weeks. 4. We will evaluate p.r.n. or in a.m. Gail Pedro PA-C /[id number]
[2017-01-09] MEDS: VERIFY SCOPOLAMINE PATCH TOP SCH (08:35)
[2017-01-09] MEDS: Lactobacillus Rhamnosus GG (Probiotic) Cap PO SCH (08:35)
[2017-01-09] MEDS: Multivitamins with Iron/Calcium/Folic Acid/Minerals Tab PO SCH (08:36)
--- NOTE | 2017-01-09 09:59 | DISCH ---
ADMISSION DIAGNOSES: 1. Intraabdominal abscess, prior infection revealed Staphylococcus epidermidis following a limited laparotomy with drainage of focal inflammatory fluid collection and placement of Interceed mesh on 12/15/2016. 2. Status post revision of [place] gastric bypass surgery. 3. Benign neoplasm of pituitary gland and craniopharyngeal duct. 4. Systemic lupus. 5. Exercise-induced asthma. 6. Dizziness. 7. Unspecified surgical malabsorption. 8. Vitamin B12 and B complex deficiency. 9. Degenerative joint disease. 10.MALT (mucosa-associated lymphoid tissue). 11.Complex regional pain syndrome, type 2. 12.Vitamin D deficiency. DISCHARGE DIAGNOSES: 1. Ultrasound-guided aspiration of intraabdominal abscess, limited laparotomy with drainage of intraabdominal abscess, closure of enterostomy involving small bowel. Date of surgery, 01/05/2017. 2. Microbiology, no gross anaerobic culture, final, no growth after 3 days. Wound culture showed yeast at 2 days. HISTORY: Carolyn Hakns is a pleasant 56-year-old female who presented to the clinic with redness and pain at her incision. She had finished Cipro 2 days prior to admission. She was admitted on 01/03/2017. After preoperative evaluation and discussion of possible risks and possible complications, she wished to proceed with surgical procedure. HOSPITAL COURSE: She had her surgery on 01/05/2017. She had no operative complications. Her wound was left open. This was packed twice daily. She received IV antibiotics of cefoxitin 2 grams q.6 hours, Cipro 400 mg q.12 hours, and clindamycin 600 mg IV q.6 hours. She remained afebrile, oral intake adequate, activity good, and pain was well managed. She was able to be discharged to home without any complications on 01/09/2017. PHYSICAL EXAMINATION: GENERAL: Carolyn Hanks is a 56-year-old female. VITAL SIGNS: Height is 5 feet 6 inches. Weight is 132 pounds. TPR is 98, 72, 16, and blood pressure 127/68. HEENT: Negative. NECK: Supple. HEART: Regular rate and rhythm. ABDOMEN: She has a small open wound, it is healing well. LACIE drain has been putting out 13 mL of a light pink serosanguineous drainage. Abdominal binder has been on. EXTREMITIES: Without peripheral edema. DISPOSITION: Discharged to home with home health care to be resumed on 01/09/2017. FOLLOWUP APPOINTMENT: With Gail Pedro PA-C, on 01/16/2017 at 11 a.m. DISCHARGE MEDICATIONS: Home medications; 1. Zofran ODT 4 mg q.4 hours p.r.n. nausea, #30. 2. Cipro 500 mg/5 mL b.i.d., 140 mL given for 14 days. 3. Diflucan 100 mg oral before breakfast, #70. 4. Dilaudid 2 mg 1 to 2 q.4 hours p.r.n. pain. 5. Culturelle 2 capsules twice daily. 6. Scopolamine 1 patch every 72 hours, #5, with one refill. 7. Thiamine 100 mg IM every 28 days. 8. She is to resume home medication of Lidoderm 5% one patch topical, milk of magnesia 30 mL p.r.n., multivitamin 1 tablet daily, and MiraLAX as needed. DISCHARGE DIET: Drink 8 to 10 glasses of water a day. Step-2 gastric bypass diet for 2 weeks. ACTIVITY: No lifting greater than 10 pounds for 6 weeks. Driving, do not drive while on pain medication. Shower/bathing, may shower. DISCHARGE INSTRUCTIONS: Notify provider of fever, increased pain, nausea, or vomiting. Keep site clean and dry. Wound incision care; change dressing and open wound twice a day. Use dry gauze to pack it and place an ABD over gauze. One dressing change should be after shower. Use incentive spirometer 10 times every hour while awake.
[2017-01-09 11:05] VITALS: BP 140/68
[2017-01-09] MEDS: Scopolamine 1.5 MG Transdermal Patch TRDERM SCH (14:09)
--- NOTE | 2017-01-10 13:32 | OR ---
DATE OF OPERATION: 01/05/2017 PREOPERATIVE DIAGNOSIS: Recurrent intraabdominal abscess. POSTOPERATIVE DIAGNOSES: 1. Recurrent intraabdominal abscess associated with semisolid accumulation of infected material. 2. Area of small bowel occupying abscess cavity, requiring repair. OPERATIVE PROCEDURE: 1. Ultrasound-guided aspiration of intraabdominal abscess (35259). 2. Limited laparotomy with: a. Drainage of intraabdominal abscess (58079). b. Closure of enterotomy involving small bowel occupying abscess cavity (41601 ). ANESTHESIA: General. AIRPLANE FUELER: Gail Pedro PA-C. INDICATION FOR PROCEDURE: This is a 56-year-old female presenting with what appeared to be a recurrent intraabdominal abscess. Plan is to proceed with attempted drainage of this percutaneously with ultrasound guidance. Potential risks of the procedure including bleeding, infection, injury to underlying viscera, and possibility of needing a laparotomy were reviewed, and the patient wishes to proceed. Additionally, the patient has, at this point, poor peripheral venous access, and central venous line needs to be inserted. Potential risks of ongoing bleeding, infection, pneumothorax or hemothorax, injury to the vascular structures were likewise reviewed, and the patient wishes to proceed. DETAILS OF THE PROCEDURE: The patient was taken to the operating room and placed in a supine position, after general endotracheal anesthesia was induced. Initially, the upper chest and neck areas were prepped and draped, and the left subclavian vein was cannulated. A guidewire was passed, and along the guidewire, a triple lumen catheter inserted. Good in and outflow is noted through the ports, and the ports were flushed with heparinized saline, the catheter was sutured to the skin, and the dressing was applied. Subsequent chest x-ray showed good catheter positioning. At that point, Mendoza catheter was inserted, and the abdomen was prepped and draped. Ultrasound was then used to identify the location of the abscess. Just lateral to that, under continued ultrasound-guidance, a guidewire was passed, after a needle was inserted into the abscess cavity. Over the guidewire then, a 16-Andorran introducer was placed, and through this, a 15- Andorran round Valentino-Young drain was placed under continued ultrasound guidance. As the fluid was aspirated, it became evident that there was quite a bit of non-drained fluid. This was felt to be related to some solid or gelatinous-type material that was not being actually drained by the catheter. Given this, a decision was made to proceed with a limited laparotomy. Initially , a transverse incision to the right of the midline was made, hoping to get into an area that was relatively free of inflammation, the patient having perviously had a midline incision over the site of hernia. As one continued down through this, the area of the abscess cavity was entered. As one retracted , an area of enterotomy became evident, as the small bowel appeared to be more or less occupying a portion of the abscess wall. At that point, the remainder of the abscess cavity was further opened. Decision was made to extend this in the midline of the incision, to allow more adequate access to the abscess cavity. The cultures were obtained of the gelatinous material. Remaining abscess cavity was bluntly swept out and then irrigated with a Zyvox-containing saline solution. The enterotomy was then carefully freed up on its edges and closed with a transverse firing of the LAUREL reyes load. Seromuscular stitches were felt to likely be associated with higher risk of this actually leaking through the friability of tissue, and the area was covered with 4 mL of fibrin sealant. Over this, the fascia was closed with some running #1 Vicryl stitch. The drain, which was already in place, was then left in position, and the area once again was irrigated with, at this time, meropenem and Zyvox-containing saline solution. The fascia over the midline site was then closed over the drain with a #1 Vicryl stitch as well. The midline incision at this point was brittle and not amenable to closure either now or with a delayed primary closure approach, and given this, this was packed open with iodoform gauze. Drain was affixed with some 4-0 Vicryl stitch and dressing applied. The patient was taken to the recovery room in satisfactory condition. Physician printer's assistant, Gail Pedro, played an essential role in assisting in this case, helping to position the patient, retracting structures as needed, as well as suturing and cutting sutures as indicated. Her presence improved the patient's safety and decreased operative time. JULIANA/BRODERICK /[id number] FRANK
--- NOTE | 2017-01-11 09:40 | PROC ---
DATE OF PROCEDURE: 01/05/2017 PREOPERATIVE DIAGNOSIS: Recurrent intraabdominal abscess. POSTOPERATIVE DIAGNOSES: 1. Recurrent intraabdominal abscess associated with semisolid accumulation of infected material. 2. Area of small bowel occupying abscess cavity requiring repair. OPERATIVE PROCEDURE: 1. Ultrasound-guided aspiration of intraabdominal abscess (13520). 2. Limited laparotomy with: a. Drainage of intraabdominal abscess (53108). b. Closure of enterotomy involving small bowel occupying abscess cavity (67186). ANESTHESIA: General. SENIOR DESIGNER/ART DIRECTOR: Gail Pedro PA-C. INDICATION FOR PROCEDURE: This is a 56-year-old female presenting with what appeared to be a recurrent intraabdominal abscess. Plan was to proceed with attempted drainage of this percutaneously with ultrasound guidance. Potential risks of the procedure including bleeding, infection, injury to underlying viscera, possibility of needing a laparotomy were reviewed, and the patient wishes to proceed. Additionally, the patient has, at this point, poor peripheral venous access, and central venous line needs to be inserted. Potential risks of ongoing bleeding, infection, pneumothorax, injury to the vascular structures were likewise reviewed, and the patient wishes to proceed. DETAILS OF THE PROCEDURE: The patient was taken to the operating room and placed in a supine position, after general endotracheal anesthesia was induced. Initially, the upper chest and neck areas were prepped and draped, and the left subclavian vein was cannulated. A guidewire was passed, and along the guidewire, a triple lumen catheter inserted. Good in and outflow was noted through the ports, and the ports were flushed with heparinized saline, the catheter was sutured to the skin, and the dressing was applied. Subsequent chest x-ray showed good catheter positioning. At that point, Mendoza catheter was inserted, and the abdomen was prepped and draped. Ultrasound was then used to identify the location of the abscess. Just lateral to that, under continued ultrasound-guidance, a guidewire was passed, after a needle was inserted into the abscess cavity. Over the guidewire then, a 16-Malagasy introducer was placed, and through this, a 15-Malagasy round Valentino-Young drain was placed under continued ultrasound guidance. As the fluid was aspirated, it became evident that there was quite a bit of non- drained fluid. This was felt to be related to some solid or gelatinous-type material that was not being actually drained by the catheter. Given this, a decision was made to proceed with a limited laparotomy. Initially, a transverse incision to the right of the midline was made, hoping to get into an area that was relatively free of inflammation, the patient having perviously had a midline incision over the site of hernia. As one continued down through this, the area of the abscess cavity was entered. As one retracted, the area of enterotomy became evident, as the small bowel that appeared to be more or less occupying a portion of the abscess wall. At that point, the remainder of the abscess cavity was further opened. Decision was made to extend this in the midline of the incision, to allow more adequate access to the abscess cavity. The cultures were obtained of the gelatinous material. Remaining of the abscess cavity was bluntly swept out and then irrigated with a Zyvox-containing saline solution. The enterotomy was then carefully freed up on its edges and closed with a transverse firing of the LAUREL reyes load. Seromuscular stitches were felt to likely be associated with higher risk of this actually leaking through the friability of tissue, and the area was covered with 4 mL of fibrin sealant. Over this, the fascia was closed with some running #1 Vicryl stitch. The drain, which was already in place, was then left in position, and the area once again irrigated with, at this time, meropenem and Zyvox- containing saline solution. The fascia over the midline site was then closed over the drain with a #1 Vicryl stitch as well. The midline incision at this point was brittle and not amenable to be closed either now or with a delayed primary closure approach, and given this, this was packed open with iodoform gauze. Drain was fixed with some 4-0 Vicryl stitch and dressing applied. The patient was taken to the recovery room in satisfactory condition. Physician inventory assistant, Gail Pedro, played an essential role in assisting in this case, helping to position the patient, retracting structures as needed, as well as suturing and cutting sutures as indicated. Her presence improved the patient's safety and decreased operative time. Kit Duke MD /[id number]
== END 2017-01-09 14:18 | disposition home health service (06) | DRG 330 ==
LOC: JP.MS 10:46
PROVIDERS: ADMIT Surgery; ATTEND Surgery
PROC: 0W9G3ZX Drainage of Peritoneal Cavity, Percutaneous Approach, Diagnostic (ICD-10-PCS; principal; 2017-01-05)
PROC: 0DQ80ZZ Repair Small Intestine, Open Approach (ICD-10-PCS; 2017-01-05)
PROC: 0W9G0ZX Drainage of Peritoneal Cavity, Open Approach, Diagnostic (ICD-10-PCS; 2017-01-05)
PROC: 02HV33Z Insertion of Infusion Device into Superior Vena Cava, Percutaneous Approach (ICD-10-PCS; 2017-01-05)
DX: K65.1 Peritoneal abscess (principal); K91.2 Postsurgical malabsorption, not elsewhere classified; C88.4 Extranodal marginal zone B-cell lymphoma of mucosa-associated lymphoid tissue [MALT-lymphoma]; G90.50 Complex regional pain syndrome I, unspecified; E55.9 Vitamin D deficiency, unspecified; E53.8 Deficiency of other specified B group vitamins; Z98.84 Bariatric surgery status; Z98.0 Intestinal bypass and anastomosis status; M32.9 Systemic lupus erythematosus, unspecified; J45.990 Exercise induced bronchospasm; M19.90 Unspecified osteoarthritis, unspecified site; D35.2 Benign neoplasm of pituitary gland; D35.3 Benign neoplasm of craniopharyngeal duct
CPT/HCPCS: 36415; 71010; 71010-26; 74177; 74177-26; 76998; 80053; 83735; 84100; 85025; 85027; 87070; 87075; 87205; 87493; 94762; A9270-GY; C9113; J0694; J0744; J1170; J1642; J2020; J2250; J2704; J3010; J3411; J3420; J7030; J7042; J7050; Q9965; Q9967; S0077

== ENCOUNTER 2017-04-08 11:30 | Inpatient (IN) | payer MEDICARE, OTHER ==
--- NOTE | 2017-04-08 12:26 | EDM.PDOC ---
ED HPI GENERAL MEDICAL PROBLEM - General Chief Complaint: Skin Complaint Stated Complaint: ABDOMINAL PAIN Time Seen by Provider: 04/08/17 12:15 Source of Information: Reports: Patient, Old Records History Limitations: Reports: No Limitations - History of Present Illness INITIAL COMMENTS - FREE TEXT/NARRATIVE: 56 yo female here with recent recurrence of infection to an old surgical site on her abdomen. Is followed by Dr. Marquita Duke. Had a temp of 100F at home this morning. Is taking acetaminophen regularly for pain relief. She states her surgical would on her abdomen had been open for a long time and just closed up in the last 2 weeks. Onset: Gradual Onset Date: 04/06/17 Duration: Day(s):, Getting Worse Location: Reports: Abdomen Quality: Reports: Ache Severity: Moderate Improves with: Reports: Medication Worsens with: Reports: Other (? time) Context: Reports: Other (Surgical site on abdomen) Associated Symptoms: Reports: Fever/Chills. Denies: Nausea/Vomiting Treatments LENS GRINDER AND POLISHER: Reports: Acetaminophen - Related Data Allergies Allergy/AdvReac Type Severity Reaction Status Date / Time codeine Allergy Unknown Cannot Verified 05/09/16 08:04 Remember hydrocodone Allergy Unknown Cannot Verified 09/13/16 09:38 Remember omeprazole Allergy Unknown Cannot Verified 05/16/16 09:32 Remember oxycodone Allergy Unknown Cannot Verified 05/09/16 08:04 Remember sucralfate [From Carafate] Allergy Unknown Cannot Verified 05/09/16 08:04 Remember venom-honey bee Allergy Cannot Verified 05/09/16 08:04 [bee venom (honey bee)] Remember Home Meds: Home Meds Cyanocobalamin (Vitamin B-12) [Cyanocobalamin Injection] 1 ml IM ASDIRECTED [History] EPINEPHrine [Epipen] 0.3 mg IM ASDIRECTED PRN 04/10/15 [History] Multivitamin with Minerals [Multivitamins with Minerals] 1 tab PO DAILY [History] Acetaminophen 640 mg PO Q4H PRN 04/07/16 [History] Lidocaine 5% [Lidoderm 5%] 1 patch TOP DAILY PRN 12/15/16 [History] Magnesium Hydroxide [Milk of Magnesia] 30 ml PO ASDIRECTED PRN #2 ml 12/17/16 [ Rx] Ondansetron [Zofran ODT] 4 mg PO Q4HR PRN #30 tab.dis 01/09/17 [Rx] Scopolamine [Transderm-Scop] 1.5 mg TRDERM Q72H #5 patch 01/09/17 [Rx] Thiamine [Vitamin B-1] 100 mg IM Q28D #0 mdv 01/09/17 [Rx] Past Medical History HEENT History: Reports: None, Cataract, Other (See Below) Other HEENT History: pititutary Cardiovascular History: Reports: Other (See Below) Other Cardiovascular History: BRADYCARDIA Respiratory History: Reports: Asthma, Other (See Below) Other Respiratory History: Night time oxygen due to Lupus at 2.5-3L. Gastrointestinal History: Reports: Bowel Obstruction, Chronic Constipation, GERD Other Gastrointestinal History: splenectomy Genitourinary History: Reports: None CONCERT MANAGER History: Reports: , Spontaneous Musculoskeletal History: Reports: Arthritis, Back Pain, Chronic, Connective Tissue Disease, Neck Pain, Chronic, Other (See Below) Other Musculoskeletal History: herniated disc Neurological History: Reports: Concussion, Head Trauma, Migraines, TIA, Other ( See Below) Other Neuro History: herniated disc - TIA 03/08/16 - tpa given to break up clot - Psychiatric History: Reports: None Endocrine/Metabolic History: Reports: None Hematologic History: Reports: B12 Deficiency, Other (See Below) Other Hematologic History: lymphoma Immunologic History: Reports: Immunosuppression, Other (See Below) Other Immunologic History: lupus Oncologic (Cancer) History: Reports: Lymphoma Dermatologic History: Reports: None - Infectious Disease History Infectious Disease History: Reports: Chicken Pox, Mumps - Past Surgical History Head Surgeries/Procedures: Reports: None HEENT Surgical History: Reports: LASIK, Other (See Below) GI Surgical History: Reports: Appendectomy, Bariatric Procedure, Cholecystectomy , Colon, Colonoscopy, Esophageal Dilatation Female Surgical History: Reports: Tubal Ligation Endocrine Surgical History: Reports: Pituitary Tumor Resection Social & Family History - Family History HEENT: Reports: Impaired Vision Cardiac: Reports: CAD, [place] Respiratory: Reports: Asthma GI: Reports: None : Reports: Diabetic Nephropathy OBGYN: Reports: None Musculoskeletal: Reports: None Neurological: Reports: None Psychiatric: Reports: None Endocrine/Metabolic: Reports: Diabetes, Type I, Diabetes, type II, Hypothyroidism Hematologic: Reports: None Immunologic: Reports: None Oncologic: Reports: Breast, Uterine - Tobacco Use Smoking Status *Q: Never Smoker Second Hand Smoke Exposure: No - Caffeine Use Caffeine Use: Reports: Tea Other Caffeine Use: occasionaly - Alcohol Use Days Per Week of Alcohol Use: 0 - Recreational Drug Use Recreational Drug Use: No ED ROS GENERAL - Review of Systems Review Of Systems: See Below Constitutional: Reports: Fever HEENT: Reports: No Symptoms Respiratory: Reports: No Symptoms Cardiovascular: Reports: No Symptoms GI/Abdominal: Reports: Abdominal Pain. Denies: Black Stool, Bloody Stool, Constipation, Decreased Appetite, Difficulty Swallowing, Distension, Flatus, Hematemesis, Hematochezia, Melena, Nausea, Vomiting : Reports: No Symptoms Musculoskeletal: Reports: No Symptoms Skin: Reports: Erythema (to area of tenderness) Neurological: Reports: No Symptoms Psychiatric: Reports: No Symptoms ED EXAM, SKIN/RASH Exam: See Below Exam Limited By: No Limitations General Appearance: Alert, WD/WN, No Apparent Distress Eye Exam: Bilateral Eye: Normal Inspection Ears: Normal External Exam, Normal Canal, Hearing Grossly Normal Nose: Normal Inspection, Normal Mucosa, No Blood Throat/Mouth: Normal Inspection, Normal Lips, Normal Teeth, Normal Oropharynx, Normal Voice, No Airway Compromise Head: Atraumatic, Normocephalic Neck: Normal Inspection, Supple, Non-Tender Respiratory/Chest: No Respiratory Distress, Lungs Clear, Normal Breath Sounds, No Accessory Muscle Use Cardiovascular: Regular Rate, Rhythm, No Edema GI/Abdominal: Normal Bowel Sounds, Soft, No Distention, Tender (Lower portion of her now healed surgical wound.) Back Exam: Normal Inspection. No: CVA Tenderness (R), CVA Tenderness (L) Extremities: Normal Inspection, Normal Range of Motion, Non-Tender, No Pedal Edema Neurological: Alert, Oriented, CN II-XII Intact, Normal Cognition, No Motor/ Sensory Deficits Psychiatric: Normal Affect, Normal Mood Skin: Warm, Dry, Intact, No Rash, Erythema (and tenderness to the R side, lower half of her healed surgical wound on her abdomen) Location, Skin: Abdomen Characteristics: Erythematous Associated features: Warmth, Tenderness, Induration Lymphatic: No Adenopathy Course - Vital Signs Text/Narrative:: saline lock, acetaminophen [address] Marquita Duke notified of CT findings @ 1551h Last Recorded V/S: Last Vital Signs Temp 36.6 C 04/08/17 12:06 Pulse 78 04/08/17 12:06 Resp 13 04/08/17 12:06 BP 116/77 04/08/17 12:06 Pulse Ox 95 04/08/17 12:06 - Orders/Labs/Meds Orders: Active Orders 24 hr Category Date Time Status Abdomen Pelvis w Cont [CT] Stat Exams 04/08/17 12:20 Taken BASIC METABOLIC PANEL,BMP [CHEM] Stat Lab 04/08/17 15:57 Ordered CBC W/O DIFF,HEMOGRAM [HEME] Stat Lab 04/08/17 15:57 Ordered UA W/MICROSCOPIC [URIN] Stat Lab 04/08/17 15:57 Uncollected Iopamidol [Isovue-300 (61%)] Med 04/08/17 13:00 Active 94 ml IV . DIRECTED Sodium Chloride 0.9% [Normal Saline] 80 ml Med 04/08/17 13:00 Active IV ASDIRECTED Sodium Chloride 0.9% [Saline Flush] Med 04/08/17 12:20 Active 10 ml FLUSH ASDIRECTED PRN Saline Lock Insert [OM.PC] Routine Oth 04/08/17 12:20 Ordered Medication Orders Sodium Chloride (Normal Saline) 80 mls @ 3 mls/sec IV ASDIRECTED SARAHY Last Admin: 04/08/17 14:41 Dose: 3 mls/sec Iopamidol (Isovue-300 (61%)) 94 ml IV . DIRECTED SARAHY Last Admin: 04/08/17 14:41 Dose: 94 ml Sodium Chloride (Saline Flush) 10 ml FLUSH ASDIRECTED PRN PRN Reason: Keep Vein Open Last Admin: 04/08/17 14:39 Dose: 10 ml Admin: 04/08/17 12:37 Dose: 10 ml Meds: Medications Generic Name Dose Route Start Last Admin Trade Name Freq PRN Reason Stop Dose Admin Sodium Chloride 80 mls @ 3 mls/sec 04/08/17 13:00 04/08/17 14:41 Normal Saline IV 3 mls/sec ASDIRECTED SARAHY Administration Iopamidol 94 ml 04/08/17 13:00 04/08/17 14:41 Isovue-300 (61%) IV 94 ml . DIRECTED SARAHY Administration Sodium Chloride 10 ml 04/08/17 12:20 04/08/17 14:39 Saline Flush FLUSH 10 ml ASDIRECTED PRN Administration Keep Vein Open Discontinued Medications Generic Name Dose Route Start Last Admin Trade Name Michael PRN Reason Stop Dose Admin Acetaminophen 650 mg 04/08/17 14:20 04/08/17 14:24 Tylenol PO 04/08/17 14:21 650 mg ONETIME ONE Administration Iohexol 20 ml 04/08/17 13:12 04/08/17 13:23 Omnipaque PO 04/08/17 13:13 20 ml ONETIME ONE Administration - Radiology Interpretation Free Text/Narrative:: anterior abdominal abscess increase in size, 12x8x[address] Results Date: 04/08/17 CT Results Time: 15:50 Departure - Departure Time of Disposition: 16:00 Disposition: Admitted As Inpatient 64 Condition: Fair Clinical Impression: Abdominal wall abscess - Discharge Information Referrals: PCP,None [Primary Care Provider] - Forms: ED Department Discharge - My Orders Last 24 Hours: My Active Orders 04/08/17 12:20 Abdomen Pelvis w Cont [CT] Stat Sodium Chloride 0.9% [Saline Flush] 10 ml FLUSH ASDIRECTED PRN Saline Lock Insert [OM.PC] Routine 04/08/17 13:00 Iopamidol [Isovue-300 (61%)] 94 ml IV . DIRECTED Sodium Chloride 0.9% [Normal Saline] 80 ml IV ASDIRECTED 04/08/17 15:57 BASIC METABOLIC PANEL,BMP [CHEM] Stat CBC W/O DIFF,HEMOGRAM [HEME] Stat UA W/MICROSCOPIC [URIN] Stat - Assessment/Plan Last 24 Hours: My Active Orders 04/08/17 12:20 Abdomen Pelvis w Cont [CT] Stat Sodium Chloride 0.9% [Saline Flush] 10 ml FLUSH ASDIRECTED PRN Saline Lock Insert [OM.PC] Routine 04/08/17 13:00 Iopamidol [Isovue-300 (61%)] 94 ml IV . DIRECTED Sodium Chloride 0.9% [Normal Saline] 80 ml IV ASDIRECTED 04/08/17 15:57 BASIC METABOLIC PANEL,BMP [CHEM] Stat CBC W/O DIFF,HEMOGRAM [HEME] Stat UA W/MICROSCOPIC [URIN] Stat
[2017-04-08] MEDS: Sodium Chloride 0.9% 10 ML Syringe FLUSH PRN ×2 (12:37→14:39)
[2017-04-08] MEDS ORDERED: Sodium Chloride 0.9% 80 ML IV SCH (13:00)
[2017-04-08] MEDS ORDERED: Iopamidol 612 MG/ML 100 ML Bottle IV SCH (13:00)
[2017-04-08] MEDS ORDERED: Iohexol 300 MG/ML 30 ML Bottle PO ONE (13:12)
[2017-04-08] MEDS ORDERED: Iohexol 647 MG/ML 10 ML SDV PO SCH (13:15)
[2017-04-08] MEDS ORDERED: Acetaminophen 325 MG Tab, 50 Tab Bulk Bottle PO ONE (14:05)
[2017-04-08] MEDS ORDERED: Acetaminophen 325 MG Tab PO ONE (14:20)
--- NOTE | 2017-04-08 17:55 | PCM.HP ---
H&P History of Present Illness - General Date of Service: 04/08/17 Admit Problem/Dx: Admission Diagnosis/Problem Admission Diagnosis/Problem Abscess Source of Information: Patient, Old Records, Provider, RN Notes Reviewed History Limitations: Reports: No Limitations - History of Present Illness Initial Comments - Free Text/Narative: Ms. Hanks is a 56-year-old woman who is admitted through the emergency department for further evaluation and management of abdominal wall abscess with associated cellulitis. Approximate 4 months ago she underwent surgical procedure on her abdomen and was readmitted a few weeks later with abdominal wall abscess. Abscess was drained and wound left open for secondary healing. She reports a wound finally healed approximately 2-1/2 weeks ago. Previous culture did grow out staph epidermidis. She did well until one week ago when she began to experience pain in the abdominal wall that has gradually become worse. Over the last 2 days she's had some fevers as well as chills, increased abdominal pain, and ear edema of the abdominal wall. She has become progressively more weak with poor appetite and symptoms of nausea. She does have known underlying lupus as well as MALT lymphoma. - Related Data Allergies/Adverse Reactions: Allergies Allergy/AdvReac Type Severity Reaction Status Date / Time codeine Allergy Unknown Cannot Verified 05/09/16 08:04 Remember hydrocodone Allergy Unknown Cannot Verified 09/13/16 09:38 Remember omeprazole Allergy Unknown Cannot Verified 05/16/16 09:32 Remember oxycodone Allergy Unknown Cannot Verified 05/09/16 08:04 Remember sucralfate [From Carafate] Allergy Unknown Cannot Verified 05/09/16 08:04 Remember venom-honey bee Allergy Cannot Verified 05/09/16 08:04 [bee venom (honey bee)] Remember Home Medications: Home Meds Cyanocobalamin (Vitamin B-12) [Cyanocobalamin Injection] 1 ml IM ASDIRECTED [History] EPINEPHrine [Epipen] 0.3 mg IM ASDIRECTED PRN 04/10/15 [History] Multivitamin with Minerals [Multivitamins with Minerals] 1 tab PO DAILY [History] Acetaminophen 640 mg PO Q4H PRN 04/07/16 [History] Lidocaine 5% [Lidoderm 5%] 1 patch TOP DAILY PRN 12/15/16 [History] Magnesium Hydroxide [Milk of Magnesia] 30 ml PO ASDIRECTED PRN #2 ml 12/17/16 [ Rx] Ondansetron [Zofran ODT] 4 mg PO Q4HR PRN #30 tab.dis 01/09/17 [Rx] Scopolamine [Transderm-Scop] 1.5 mg TRDERM Q72H #5 patch 01/09/17 [Rx] Thiamine [Vitamin B-1] 100 mg IM Q28D #0 mdv 01/09/17 [Rx] Past Medical History HEENT History: Reports: None, Cataract, Other (See Below) Other HEENT History: pititutary Cardiovascular History: Reports: Other (See Below) Other Cardiovascular History: BRADYCARDIA Respiratory History: Reports: Asthma, Other (See Below) Other Respiratory History: Night time oxygen due to Lupus at 2.5-3L. 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 Musculoskeletal History: Reports: Arthritis, Back Pain, Chronic, Connective Tissue Disease, Neck Pain, Chronic, Other (See Below) Other Musculoskeletal History: herniated disc Neurological History: Reports: Concussion, Head Trauma, Migraines, TIA, Other ( See Below) Other Neuro History: herniated disc - TIA 03/08/16 - tpa given to break up clot - Psychiatric History: Reports: None Endocrine/Metabolic History: Reports: None Hematologic History: Reports: B12 Deficiency, Other (See Below) Other Hematologic History: lymphoma Immunologic History: Reports: Immunosuppression, Other (See Below) Other Immunologic History: lupus Oncologic (Cancer) History: Reports: Lymphoma Dermatologic History: Reports: None - Infectious Disease History Infectious Disease History: Reports: Chicken Pox, Mumps - Past Surgical History Head Surgeries/Procedures: Reports: None HEENT Surgical History: Reports: LASIK, Other (See Below) GI Surgical History: Reports: Appendectomy, Bariatric Procedure, Cholecystectomy , Colon, Colonoscopy, Esophageal Dilatation Female Surgical History: Reports: Tubal Ligation Endocrine Surgical History: Reports: Pituitary Tumor Resection Social & Family History - Family History HEENT: Reports: Impaired Vision Cardiac: Reports: CAD, [place] Respiratory: Reports: Asthma GI: Reports: None : Reports: Diabetic Nephropathy OBGYN: Reports: None Musculoskeletal: Reports: None Neurological: Reports: None Psychiatric: Reports: None Endocrine/Metabolic: Reports: Diabetes, Type I, Diabetes, type II, Hypothyroidism Hematologic: Reports: None Immunologic: Reports: None Oncologic: Reports: Breast, Uterine - Tobacco Use Smoking Status *Q: Never Smoker Second Hand Smoke Exposure: No - Caffeine Use Caffeine Use: Reports: Tea Other Caffeine Use: occasionaly - Alcohol Use Days Per Week of Alcohol Use: 0 - Recreational Drug Use Recreational Drug Use: No H&P Review of Systems - Review of Systems: Review Of Systems: See Below General: Reports: Fever, Chills, Weakness, Decreased Appetite HEENT: Reports: No Symptoms Pulmonary: Reports: No Symptoms Cardiovascular: Reports: No Symptoms Gastrointestinal: Reports: Abdominal Pain, Anorexia, Nausea. Denies: Black Stool, Bloody Stool, Difficulty Swallowing, Distension, Vomiting Genitourinary: Reports: No Symptoms Musculoskeletal: Reports: No Symptoms Skin: Reports: Erythema (Abdominal wall) Psychiatric: Reports: No Symptoms Neurological: Reports: No Symptoms Hematologic/Lymphatic: Reports: No Symptoms Immunologic: Reports: No Symptoms Exam - Exam Exam: See Below - Vital Signs Vital Signs: Last Vital Signs Temp 97.8 F 04/08/17 12:06 Pulse 78 04/08/17 12:06 Resp 13 04/08/17 12:06 BP 116/77 04/08/17 12:06 Pulse Ox 95 04/08/17 12:06 Weight: 138 lb 7.205 oz - Exam Quality Assessment: DVT Prophylaxis General: Alert, Oriented, Cooperative, Moderate Distress HEENT: Conjunctiva Clear, Hearing Intact, Mucosa Moist & [place], Normal Nasal Septum, Posterior Pharynx Clear, Pupils Equal Neck: Supple, Trachea Midline, +2 Carotid Pulse wo Bruit Lungs: Clear to Auscultation, Normal Respiratory Effort Cardiovascular: Regular Rate, Regular Rhythm, Normal S1, Normal S2. No: Systolic Murmur, Diastolic Murmur GI/Abdominal Exam: Soft, Tender, Mass, Other (Palpable fullness abdominal wall was associated erythema on the skin). No: Distended, Hepatomegaly, Splenomegaly Back Exam: Normal Inspection, Full Range of Motion Extremities: Non-Tender, No Pedal Edema Skin: Warm, Dry, Other (Erythema abdominal wall) Neurological: Cranial Nerves Intact, Strength Equal Bilateral, Normal Speech, Normal Tone, Sensation Intact. No: Focal Deficit Neuro Extensive - Mental Status: Alert, Oriented x3, Normal Mood/Affect, Normal Cognition, Memory Intact - Patient Data Lab Results Last 24 hrs: Laboratory Results - last 24 hr 04/08/17 04/08/17 Range/Units 16:09 16:09 WBC 9.8 (4.5-11.0) K/uL RBC 4.01 (3.30-5.50) M/uL Hgb 11.2 L (12.0-15.0) g/dL Hct 36.1 (36.0-48.0) % MCV 90 (80-98) fL MCH 28 (27-31) pg MCHC 31 L (32-36) % Plt Count 378 (150-400) K/uL Sodium 136 L (140-148) mmol/L Potassium 3.9 (3.6-5.2) mmol/L Chloride 103 (100-108) mmol/L Carbon Dioxide 25 (21-32) mmol/L Anion Gap 11.9 (5.0-14.0) mmol/L BUN 12 D (7-18) mg/dL Creatinine 0.7 (0.6-1.0) mg/dL Est Cr Clr Drug Dosing 85.19 mL/min Estimated GFR (MDRD) > 60 (>60) Glucose 79 (74-106) mg/dL Calcium 9.2 (8.5-10.1) mg/dL Result Diagrams: 04/08/17 16:09 04/08/17 16:09 *Q Meaningful Use (ADM) - VTE *Q VTE Criteria *Q: VTE Pharmacological Contraindications *Q: Patient Scheduled Surgery - VTE Risk Assess *Q Each Risk Factor Represents 1 Point: Age 41 - 59 years, Minor Surgery Planned Total Score 1 Point Risk Factors: 2 Each Risk Factor Represents 2 Points: Malignancy (present or previous) Total Score 2 Point Risk Factors: 2 Each Risk Factor Represents 3 Points: None Total Score 3 Point Risk Factors: 0 Each Risk Factor Represents 5 Points: None Total Score 5 Point Risk Factors: 0 Venous Thromboembolism Risk Factor Score *Q: 4 - Stroke *Q Stroke Criteria *Q: - AMI *Q AMI Criteria *Q: Problem List Initiated/Reviewed/Updated: Yes Orders Last 24hrs: Active Orders 24 hr Category Date Time Status Patient Status Manage Transfer [TRANSFER] Routine ADT 04/08/17 17:15 Active Abdomen Pelvis w Cont [CT] Stat Exams 04/08/17 12:20 Taken CULTURE BLOOD [BC] Stat Lab 04/08/17 17:14 Ordered CULTURE BLOOD [BC] Stat Lab 04/08/17 17:14 Ordered UA W/MICROSCOPIC [URIN] Stat Lab 04/08/17 15:57 Uncollected Iopamidol [Isovue-300 (61%)] Med 04/08/17 13:00 Active 94 ml IV . DIRECTED Linezolid [Zyvox] 600 mg Med 04/08/17 19:00 Active Premix Bag 1 bag IV Q12H Meropenem [Merrem] 1 gm Med 04/08/17 18:00 Active Sodium Chloride 0.9% [Normal Saline] 50 ml IV Q8H Sodium Chloride 0.9% [Normal Saline] 80 ml Med 04/08/17 13:00 Active IV ASDIRECTED Sodium Chloride 0.9% [Saline Flush] Med 04/08/17 12:20 Active 10 ml FLUSH ASDIRECTED PRN Blood Culture x2 Reflex Set [OM.PC] Urgent Oth 04/08/17 17:14 Ordered Saline Lock Insert [OM.PC] Routine Oth 04/08/17 12:20 Ordered Resuscitation Status Routine Resus Stat 04/08/17 17:18 Ordered Medication Orders Sodium Chloride (Normal Saline) 80 mls @ 3 mls/sec IV ASDIRECTED [facility] Last Admin: 04/08/17 14:41 Dose: 3 mls/sec Linezolid 600 mg/ Premix 300 mls @ 300 mls/hr IV Q12H SARAHY Meropenem 1 gm/ Sodium (Chloride) 50 mls @ 100 mls/hr IV Q8H SARAHY Iopamidol (Isovue-300 (61%)) 94 ml IV . DIRECTED [facility] Last Admin: 04/08/17 14:41 Dose: 94 ml Sodium Chloride (Saline Flush) 10 ml FLUSH ASDIRECTED PRN PRN Reason: Keep Vein Open Last Admin: 04/08/17 14:39 Dose: 10 ml Admin: 04/08/17 12:37 Dose: 10 ml Assessment/Plan Comment:: ASSESSMENT AND PLAN ABDOMINAL WALL ABSCESS WITH ASSOCIATED CELLULITIS-previous IND of abdominal wall abscess approximately 3 months ago, at that time grew out staph epidermidis. Area was opened and left to secondary healing. Closed about 2-1/2 weeks ago, now over the last week his developed increased pain with erythema of the skin over the abdominal wall. CT scan obtained in the emergency department today shows evidence of abscess. -Nothing by mouth after midnight -IV fluids for hydration -Anti-medic therapy as needed -Dilaudid INSULATION CUTTER AND FORMER for pain control -Blood cultures pending -IV Zyvox and meropenem pending culture results -Consult Dr. Duke for surgical management and follow-up LUPUS-currently on no medical therapy, associated immune compromise likely a contributing factor to recurrent infections MALT LYMPHOMA MAINTENANCE ISSUES -DVT prophylaxis; SCUDs -GI prophylaxis; not indicated -Mendoza catheter; not indicated -Nutrition; regular diet, nothing by mouth after midnight -Nicotine dependence; not required CODE STATUS-FULL CODE ADMISSION STATUS-patient will be admitted to inpatient status, expect at least a 2 night hospital stay for evaluation and management of problems as outlined above. At the time of this admission I do not reasonably expected evaluation and management of this problem will require more than a 96 hour hospital stay. DISPOSITION-anticipate discharge to home after the hospital stay. PRIMARY CARE PROVIDER-
[2017-04-08] MEDS ORDERED: Acetaminophen 325 MG Tab PO PRN (18:18)
[2017-04-08] MEDS ORDERED: Lidocaine 5% 700 MG Patch TOP PRN (18:18)
[2017-04-08] MEDS ORDERED: Albuterol 0.083% 2.5 MG/3 ML Neb Soln NEB PRN (18:18)
[2017-04-08] MEDS ORDERED: Naloxone 0.4 MG/ML SDV IVPUSH PRN (18:18)
[2017-04-08] MEDS ORDERED: HYDROmorphone/Normal Saline 15 MG/30 ML PCA IV PRN (18:18)
[2017-04-08] MEDS ORDERED: Sodium Chloride 0.9% 10 ML Syringe FLUSH PRN (18:18)
[2017-04-08] MEDS: Lactated Ringers 1,000 ML IV SCH (19:06)
[2017-04-08] MEDS: Scopolamine 1.5 MG Transdermal Patch TRDERM SCH (19:17)
[2017-04-08] MEDS ORDERED: Acetaminophen 160 MG Tab,Disintegrating ONE (19:28)
[2017-04-08] MEDS: Acetaminophen 160 MG Tab,Disintegrating PO PRN ×2 (19:30→23:59)
[2017-04-08] MEDS: Linezolid 600 MG in Premix Bag 1 BAG IV SCH (20:36)
[2017-04-08] MEDS: Ondansetron 4 MG/2 ML SDV IV PRN (21:31)
[2017-04-09] MEDS: Ondansetron 4 MG/2 ML SDV IV PRN ×3 (01:34→11:00)
[2017-04-09] MEDS: Linezolid 600 MG in Premix Bag 1 BAG IV SCH ×2 (06:50→19:45)
[2017-04-09] MEDS ORDERED: Naloxone 0.4 MG/ML SDV IV PRN (07:07)
[2017-04-09] MEDS ORDERED: Meperidine 300 MG/30 ML PCA Vial IV PRN (07:07)
[2017-04-09] MEDS ORDERED: fentaNYL 250 MCG/5 ML SDV ONE (07:40)
[2017-04-09] MEDS ORDERED: Dexamethasone 4 MG/ML SDV ONE (07:41)
[2017-04-09] MEDS ORDERED: Rocuronium 50 MG/5 ML Vial ONE (07:41)
[2017-04-09] MEDS ORDERED: Succinylcholine/Normal Saline 200 MG/10 ML Syringe ONE (07:41)
[2017-04-09] MEDS ORDERED: Ondansetron 4 MG/2 ML SDV ONE (07:41)
[2017-04-09] MEDS ORDERED: Propofol 200 MG/20 ML SDV ONE (07:41)
[2017-04-09] MEDS ORDERED: Linezolid 200 MG/100 ML Bag IRR ONE (08:00)
[2017-04-09] MEDS: VERIFY SCOP PATCH TOP SCH ×2 (09:38→21:24)
[2017-04-09] MEDS: Multivitamins with Iron/Calcium/Folic Acid/Minerals Tab PO SCH (09:39)
[2017-04-09] MEDS: Acetaminophen 160 MG Tab,Disintegrating PO PRN ×3 (10:45→21:28)
[2017-04-09] MEDS: Fluconazole/Normal Saline 400 MG in Premix Bag 1 BAG IV SCH (12:01)
[2017-04-09] MEDS: Lactated Ringers 1,000 ML IV SCH (17:46)
--- NOTE | 2017-04-09 18:45 | OR ---
DATE OF PROCEDURE: 04/09/2017 PREOPERATIVE DIAGNOSIS: Intra-abdominal abscess extending into the subcutaneous tissue. POSTOPERATIVE DIAGNOSES: 1. Intraabdominal abscess extending into the subcutaneous tissue. 2. Intraperitoneal foreign bodies (murtaza). 3. Focal necrotizing infection at the edge of abscess at the level of fascia and deep subcutaneous tissue. OPERATIVE PROCEDURES: 1. Drainage of intraabdominal abscess extending into subcutaneous tissue (40690). 2. Removal of intraperitoneal foreign bodies ([id number]). 3. Debridement of focal area of fascial necrosis on abdominal wall ([id number]). ANESTHESIA: General. DIRECTOR GOVERNMENT: ASTER Medrano3. INDICATION FOR PROCEDURE: Please see progress note dictated earlier today. DETAILS OF PROCEDURE: The patient was taken to the operating room. After general endotracheal anesthesia was induced, a Mendoza catheter was inserted, and the abdomen was prepped and draped. Based on the landmarks, a linear incision was made in the midline centered above the upper aspect of the iliac crest in terms of the lateral landmarks based on CT scan. This was carried down through the skin and subcutaneous tissue. As one went fairly deep into the subcutaneous tissue, a creamy purulent material was encountered. Two sets of aerobic and anaerobic cultures were obtained. Some of the overlying skin was excised to facilitate more satisfactory secondary closure. The wound was then probed and one slightly deeper area extended superiorly. This was opened up as well. There appeared to be granulation tissue in the bed of this area and no further purulence was seen to be coming from there, and there were no bowel contents. It was noted, on irrigation of some murtaza that had somewhat slimy purulent material around it, suggestive of Staph epidermidis that had been previously cultured from this wound. Those murtaza were removed. There was some focal necrotizing tissue at the level of the adjacent fascia and deep subcutaneous tissues. Some of these were debrided. A portion of this was also sent for tissue culture. At that point, no further problems were noted. The wound was packed open with iodoform gauze. The patient was taken to the recovery room in a satisfactory condition. Kit Duke MD /[id number]
[2017-04-10] MEDS: Acetaminophen 160 MG Tab,Disintegrating PO PRN ×5 (01:36→21:55)
[2017-04-10] MEDS: Lactated Ringers 1,000 ML IV SCH ×2 (06:14→08:11)
[2017-04-10] MEDS: Multivitamins with Iron/Calcium/Folic Acid/Minerals Tab PO SCH (08:11)
[2017-04-10] MEDS: Linezolid 600 MG in Premix Bag 1 BAG IV SCH ×2 (08:11→18:39)
[2017-04-10] MEDS: VERIFY SCOP PATCH TOP SCH ×2 (09:15→22:52)
[2017-04-10] MEDS: Fluconazole/Normal Saline 400 MG in Premix Bag 1 BAG IV SCH (12:35)
--- NOTE | 2017-04-10 16:03 | PCM.SURGPN ---
- General Info Date of Service: 04/10/17 Date of Surgery/Procedure: 04/09/17 POD#: 1 Post-Op Diagnosis: Intra-abdominal abscess Functional Status: Reports: Pain Controlled ( ) - Review of Systems General: Reports: No Symptoms HEENT: Reports: No Symptoms Pulmonary: Reports: No Symptoms Cardiovascular: Reports: No Symptoms, Orthopnea Gastrointestinal: Reports: Abdominal Pain Genitourinary: Reports: No Symptoms Musculoskeletal: Reports: No Symptoms Skin: Reports: No Symptoms - Patient Data Vitals - Most Recent: Last Vital Signs Temp 97.4 F 04/10/17 15:00 Pulse 60 04/10/17 15:00 Resp 18 04/10/17 15:00 BP 121/79 04/10/17 15:00 Pulse Ox 100 04/10/17 15:00 Weight - Most Recent: 142 lb 12.8 oz I&O - Last 24 Hours: Intake & Output 04/10/17 04/10/17 04/10/17 06:59 14:59 22:59 Intake Total 50 1510 Output Total 2000 1250 Balance -1950 260 Dereje Results Last 24 Hrs: Microbiology 04/09/17 08:26 Gram Stain - Final Abdomen - Abscess Wound Culture - Preliminary NO GROWTH AFTER 1 DAY Anaerobic Culture - Preliminary NO GROWTH AFTER 1 DAY 04/09/17 08:22 Gram Stain - Final Abdomen - Abscess Wound Culture - Preliminary Anaerobic Culture - Preliminary NO GROWTH AFTER 1 DAY 04/09/17 08:33 Gram Stain - Final Abdomen - Abscess Wound Culture - Preliminary Anaerobic Culture - Preliminary NO GROWTH AFTER 1 DAY 04/08/17 17:55 Aerobic Blood Culture - Preliminary Blood - Venous - Iv Start NO GROWTH AFTER 1 DAY Anaerobic Blood Culture - Preliminary NO GROWTH AFTER 1 DAY 04/08/17 17:45 Aerobic Blood Culture - Preliminary Blood - Arm, Right NO GROWTH AFTER 1 DAY Anaerobic Blood Culture - Preliminary NO GROWTH AFTER 1 DAY Med Orders - Current: Current Medications Acetaminophen (Tylenol Jr. Meltaways) 640 mg PO Q4H PRN PRN Reason: Pain Last Admin: 04/10/17 10:17 Dose: 640 mg Albuterol (Proventil Neb Soln) 2.5 mg NEB Q4H PRN PRN Reason: Shortness Of Breath/wheezing Linezolid 600 mg/ Premix 300 mls @ 150 mls/hr IV Q12H SARAHY Last Admin: 04/10/17 08:11 Dose: 300 mls/hr Lactated Ringer's (Ringers, Lactated) 1,000 mls @ 125 mls/hr IV ASDIRECTED [facility] Last Admin: 04/10/17 08:11 Dose: 125 mls/hr Meropenem 1 gm/ Sodium (Chloride) 50 mls @ 100 mls/hr IV Q8H [facility] Last Admin: 04/10/17 11:17 Dose: 100 mls/hr Fluconazole/Sodium Chloride (400 mg/ Premix) 200 mls @ 100 mls/hr IV Q24H [facility] Last Admin: 04/10/17 12:35 Dose: 100 mls/hr Lidocaine (Lidoderm 5%) 700 mg TOP DAILY PRN PRN Reason: Pain Meperidine HCl (Demerol Plug And Mold Finisher 300 Mg In 30 Ml) 0 mg IV ASDIRECTED PRN; Protocol PRN Reason: PAIN Last Admin: 04/09/17 07:30 Dose: 300 mg Multivitamins/Minerals (Thera M Plus) 1 tab PO DAILY [facility] Last Admin: 04/10/17 08:11 Dose: 1 tab Naloxone HCl (Narcan) 0.1 mg IV ASDIRECTED PRN PRN Reason: RESP DISTRESS Verify Scop Patch 0 each TOP BID [facility] Last Admin: 04/10/17 09:15 Dose: Not Given Ondansetron HCl (Zofran) 4 mg IV Q4H PRN PRN Reason: Nausea/Vomiting Last Admin: 04/09/17 11:00 Dose: 4 mg Scopolamine (Transderm-Scop) 1.5 mg TRDERM Q72H [facility] Last Admin: 04/08/17 19:17 Dose: 1.5 mg Sodium Chloride (Saline Flush) 10 ml FLUSH ASDIRECTED PRN PRN Reason: Keep Vein Open Discontinued Medications Acetaminophen (Tylenol) 650 mg PO ONETIME ONE Stop: 04/08/17 14:21 Last Admin: 04/08/17 14:24 Dose: 650 mg Acetaminophen (Tylenol) 650 mg PO Q4H PRN PRN Reason: Pain (Mild 1-3)/fever Acetaminophen (Tylenol Jr. Meltaways) Confirm Administered Dose 640 mg .ROUTE .STK-MED ONE Stop: 04/08/17 19:29 Last Admin: 04/08/17 19:33 Dose: Not Given Dexamethasone (Dexamethasone) Confirm Administered Dose 4 mg .ROUTE .STK-MED ONE Stop: 04/09/17 07:42 Fentanyl (Sublimaze) Confirm Administered Dose 250 mcg .ROUTE .STK-MED ONE Stop: 04/09/17 07:41 Hydromorphone HCl (Dilaudid Plug And Mold Finisher 15 Mg In Ns 30 Ml) 0 mg IV ASDIRECTED PRN; Protocol PRN Reason: Pain Last Admin: 04/08/17 19:04 Dose: 15 mg Sodium Chloride (Normal Saline) 80 mls @ 3 mls/sec IV ASDIRECTED [facility] Last Admin: 04/08/17 14:41 Dose: 3 mls/sec Meropenem 1 gm/ Sodium (Chloride) 50 mls @ 100 mls/hr IV Q8H [facility] Last Admin: 04/09/17 01:31 Dose: 100 mls/hr Linezolid (Zyvox) Confirm Administered Dose 100 mls @ as directed .ROUTE .STK- MED ONE Stop: 04/09/17 08:14 Iohexol (Omnipaque) 20 ml PO ONETIME ONE Stop: 04/08/17 13:13 Last Admin: 04/08/17 13:23 Dose: 20 ml Iopamidol (Isovue-300 (61%)) 94 ml IV . DIRECTED [facility] Last Admin: 04/08/17 14:41 Dose: 94 ml Linezolid (Zyvox) 200 mg IRR .STK-MED ONE Stop: 04/09/17 08:01 Last Admin: 04/09/17 08:00 Dose: 200 mg Naloxone HCl (Narcan) 0.4 mg IVPUSH Q2M PRN PRN Reason: Respiratory Distress Ondansetron HCl (Zofran) Confirm Administered Dose 4 mg .ROUTE .STK-MED ONE Stop: 04/09/17 07:42 Propofol (Diprivan 20 Ml) Confirm Administered Dose 200 mg .ROUTE .STK-MED ONE Stop: 04/09/17 07:42 Rocuronium [place] (Zemuron) Confirm Administered Dose 50 mg .ROUTE .STK-MED ONE Stop: 04/09/17 07:42 Sodium Chloride (Saline Flush) 10 ml FLUSH ASDIRECTED PRN PRN Reason: Keep Vein Open Last Admin: 04/08/17 14:39 Dose: 10 ml Succinylcholine Chloride (Succinylcholine In Ns Pf) Confirm Administered Dose 200 mg .ROUTE .STK-MED ONE Stop: 04/09/17 07:42 - Exam Wound/Incisions: Healing Well, Dressing Dry and Intact, Erythema Improving General: Alert, Oriented Neck: Supple Lungs: Clear to Auscultation, Normal Respiratory Effort Cardiovascular: Regular Rate, Regular Rhythm GI/Abdominal Exam: Soft, Other (healing wound left open and packed) Skin: Warm, Dry, Intact - Problem List Review Problem List Initiated/Reviewed/Updated: Yes - My Orders Last 24 Hours: Active Orders 24 hr Category Date Time Status Verify Patient Consent Obtain [RC] ASDIRECTED Care 04/10/17 07:26 Active NPO After Midnight [Nothing per Oral After Midnight Diet 04/10/17 Dinner Active Diet] [DIET] Medication Orders Acetaminophen (Tylenol Jr. Meltaways) 640 mg PO Q4H PRN PRN Reason: Pain Last Admin: 04/10/17 10:17 Dose: 640 mg Admin: 04/10/17 06:18 Dose: 640 mg Admin: 04/10/17 01:36 Dose: 640 mg Admin: 04/09/17 21:28 Dose: 640 mg Admin: 04/09/17 14:24 Dose: 640 mg Admin: 04/09/17 10:45 Dose: 640 mg Admin: 04/08/17 23:59 Dose: 640 mg Admin: 04/08/17 19:30 Dose: 640 mg Albuterol (Proventil Neb Soln) 2.5 mg NEB Q4H PRN PRN Reason: Shortness Of Breath/wheezing Linezolid 600 mg/ Premix 300 mls @ 150 mls/hr IV Q12H [facility] Last Admin: 04/10/17 08:11 Dose: 300 mls/hr Infusion: 04/09/17 20:45 Dose: 300 mls/hr Admin: 04/09/17 19:45 Dose: 300 mls/hr Infusion: 04/09/17 07:50 Dose: 300 mls/hr Admin: 04/09/17 06:50 Dose: 300 mls/hr Infusion: 04/08/17 21:36 Dose: 300 mls/hr Admin: 04/08/17 20:36 Dose: 300 mls/hr Lactated Ringer's (Ringers, Lactated) 1,000 mls @ 125 mls/hr IV ASDIRECTED [facility] Last Admin: 04/10/17 08:11 Dose: 125 mls/hr Infusion: 04/10/17 08:11 Dose: 125 mls/hr Admin: 04/10/17 06:14 Dose: 125 mls/hr Infusion: 04/10/17 01:46 Dose: 125 mls/hr Admin: 04/09/17 17:46 Dose: 125 mls/hr Infusion: 04/09/17 03:06 Dose: 125 mls/hr Admin: 04/08/17 19:06 Dose: 125 mls/hr Meropenem 1 gm/ Sodium (Chloride) 50 mls @ 100 mls/hr IV Q8H [facility] Last Admin: 04/10/17 11:17 Dose: 100 mls/hr Admin: 04/10/17 03:19 Dose: 100 mls/hr Admin: 04/09/17 18:53 Dose: 100 mls/hr Admin: 04/09/17 11:00 Dose: 100 mls/hr Fluconazole/Sodium Chloride (400 mg/ Premix) 200 mls @ 100 mls/hr IV Q24H [facility] Last Admin: 04/10/17 12:35 Dose: 100 mls/hr Infusion: 04/09/17 14:01 Dose: 100 mls/hr Admin: 04/09/17 12:01 Dose: 100 mls/hr Lidocaine (Lidoderm 5%) 700 mg TOP DAILY PRN PRN Reason: Pain Meperidine HCl (Demerol Plug And Mold Finisher 300 Mg In 30 Ml) 0 mg IV ASDIRECTED PRN; Protocol PRN Reason: PAIN Last Admin: 04/09/17 07:30 Dose: 300 mg Multivitamins/Minerals (Thera M Plus) 1 tab PO DAILY [facility] Last Admin: 04/10/17 08:11 Dose: 1 tab Admin: 04/09/17 09:39 Dose: Not Given Naloxone HCl (Narcan) 0.1 mg IV ASDIRECTED PRN PRN Reason: RESP DISTRESS Verify Scop Patch 0 each TOP BID [facility] Last Admin: 04/10/17 09:15 Dose: Admin: 04/09/17 21:24 Dose: Not Given Admin: 04/09/17 09:38 Dose: Ondansetron HCl (Zofran) 4 mg IV Q4H PRN PRN Reason: Nausea/Vomiting Last Admin: 04/09/17 11:00 Dose: 4 mg Admin: 04/09/17 06:10 Dose: 4 mg Admin: 04/09/17 01:34 Dose: 4 mg Admin: 04/08/17 21:31 Dose: 4 mg Scopolamine (Transderm-Scop) 1.5 mg TRDERM Q72H [facility]AHY Last Admin: 04/08/17 19:17 Dose: 1.5 mg Sodium Chloride (Saline Flush) 10 ml FLUSH ASDIRECTED PRN PRN Reason: Keep Vein Open - Assessment Assessment (Free Text/Narrative):: Carolyn Hanks is a 56 year old female with complex medical history here on POD#1 after intrabdominal abscess drainage. Thus far the bacterial cultures of the abscess have not grown anything out, but rare yeast are seen; which we will treat with diflucan. Pain: well-controlled Appetite: eating well, tolerating diet Ambulating: as able Ins/Outs: normal bowel movements and urination; net output 328mL, see EMR for details; Mendoza still in place - Plan Plan (Free Text/Narrative):: 1. Change dressing daily 2. Diflucan to cover yeast 3. Empiric bacterial coverage with meropenem while awaiting cultures. 4. Standard cares: continue ambulating as able, use incentive spirometry, regular diet
[2017-04-11] MEDS ORDERED: Bupivacaine 0.5% 50 ML MDV ONE (06:46)
[2017-04-11] MEDS ORDERED: Lidocaine 1% with EPINEPHrine 1:100,000 50 ML MDV ONE (06:46)
[2017-04-11] MEDS ORDERED: fentaNYL 100 MCG/2 ML SDV ONE (07:07)
[2017-04-11] MEDS ORDERED: Propofol 200 MG/20 ML SDV ONE (07:07)
[2017-04-11] MEDS ORDERED: Midazolam 1 MG/ML 2 ML SDV ONE (07:07)
[2017-04-11] MEDS: Linezolid 600 MG in Premix Bag 1 BAG IV SCH ×2 (07:30→18:20)
[2017-04-11] MEDS: Multivitamins with Iron/Calcium/Folic Acid/Minerals Tab PO SCH (09:13)
[2017-04-11] MEDS: VERIFY SCOP PATCH TOP SCH ×2 (09:13→20:53)
[2017-04-11] MEDS: Fluconazole/Normal Saline 400 MG in Premix Bag 1 BAG IV SCH (12:30)
[2017-04-11] MEDS: Acetaminophen 160 MG Tab,Disintegrating PO PRN ×3 (13:26→21:25)
--- NOTE | 2017-04-11 15:30 | PCM.SN ---
- Free Text/Narrative Note: Carolyn aHnks is a 56 yo female with complex past medical history who was admitted on 04/08 for an intraabdominal fluid abscess, which was drained without complication on 04/09. The abscess cultures have no growth to date, with rare yeast seen, currently being treated with diflucan. She has had a similar abscess in the past, which was S. epidermidis. We placed a Hickmann catheter today (04/11) with the expectation she will be on ciprofloxacin for approximately 3 months. She is feeling generally well using her PROJECT ENGINEER occasionally in addition to oral tylenol. She's had good bowel movements and is ambulating as able. Expected discharge to home on (04/13).
[2017-04-11] MEDS: Lactated Ringers 1,000 ML IV SCH (16:25)
--- NOTE | 2017-04-11 17:13 | PN ---
DATE OF SERVICE: 04/11/2017 The patient has been afebrile with stable vital signs. There is some brown material in her wound on a picture. We will check that at the time of the Lorenzo catheter insertion, which will be done later today. Otherwise, we will most likely discontinue the meropenem at that point, continuing the Zyvox and Diflucan. We will likely continue those through perhaps morning and then likely have her discharge home with long-term use of Cipro. The Lorenzo catheter will be placed later today, and then, we will resume diet. Kit Duke MD /[id number]
[2017-04-11] MEDS: Scopolamine 1.5 MG Transdermal Patch TRDERM SCH (17:28)
[2017-04-12] MEDS: Acetaminophen 160 MG Tab,Disintegrating PO PRN ×2 (01:40→06:37)
[2017-04-12] MEDS: Lactated Ringers 1,000 ML IV SCH (02:27)
[2017-04-12] MEDS: Linezolid 600 MG in Premix Bag 1 BAG IV SCH (07:17)
[2017-04-12 07:36] VITALS: BP 126/75
--- NOTE | 2017-04-12 08:11 | PN ---
DATE OF SERVICE: 04/09/2017 The patient was admitted yesterday with recurrence of abdominal wall abscess. This appears to be actually an intraabdominal abscess with some extension into the abdominal wall in the past as well as Staph epidermidis, did not appear to have any bowel accumulation. This had been well-healed about 2 to 3 weeks ago and then began having some discomfort once again earlier this week, and then presented now with some abdominal wall redness and tenderness. CT scan showed abscess once again in the same general vicinity. The plan at this point will be to proceed with an open drainage of this assuming there's no bowel communication identified today, or after another day or 2, we may try getting a wound VAC. The 1 question has to do with as to why this has been recurring and whether or not there is some underlying immune deficiency. 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 At some point, we will probably need to get some Infectious Disease input into this case but at any rate the plan will be to proceed with drainage of the abscess today. We will probably remove a little bit of midline skin to facilitate a secondary closure. We may consider putting in a Lorenzo catheter in another day or two after the area has been well drained to facilitate ongoing IV access. Potential risks of the procedure today including bleeding, infection, injury to underlying viscera were all reviewed with the patient and and they wished to proceed. Kit Duke MD /[id number]
[2017-04-12] MEDS: VERIFY SCOP PATCH TOP SCH (09:13)
[2017-04-12] MEDS: Multivitamins with Iron/Calcium/Folic Acid/Minerals Tab PO SCH (09:14)
[2017-04-12] MEDS ORDERED: Ondansetron 4 MG Tab.DIS PO ONE (10:40)
--- NOTE | 2017-04-13 01:11 | DISCH ---
ADMISSION DIAGNOSES: Abdominal pain status post history of gastrectomy, lupus, unspecified surgical malabsorption, B12 deficiency. DISCHARGE DIAGNOSES: Drainage of intraabdominal abscess extending into subcutaneous tissue, removal of intraperitoneal foreign bodies, and debridement of focal area of fascial necrosis on abdominal wall for intraabdominal abscess extending into the subcutaneous tissue, intraperitoneal foreign bodies (murtaza) and focal necrotizing infection of the edge of the abscess at the level of the fascia and deep subcutaneous tissues. Date of surgery 04/09/2017. Surgeon, Kit Duke MD. HISTORY: Carolyn Hanks presented to the emergency room for further evaluation and management of abdominal wall abscess with associated cellulitis. After preoperative evaluation, discussion of possible risks and possible complications, she wished to proceed with surgical procedure. HOSPITAL COURSE: Carolyn had her surgery on 04/09/2017. She had no operative complications. On postop day #1, her open incision was changed twice daily. On postop day #2, she had a Lorenzo catheter inserted and she had no complications from that. On postop day #3, she was ready to be discharged to home. Pain was well managed. Activity was good. Her was taught how to pack open abdominal incision. Abdominal abscess did grow out yeast. PHYSICAL EXAMINATION: GENERAL: Carolyn Hanks is a 56-year-old female. Height is 5 feet 6.93 inches, weight is 139 pounds. TPR 97.7, 67, 18. Blood pressure 126/75. HEENT: Negative. NECK: Supple. HEART: Regular rate and rhythm. LUNGS: Clear. ABDOMEN: Dressing is dry and intact. Abdominal binder is on. EXTREMITIES: Without peripheral edema. DISPOSITION: Discharged to home. CONDITION: Stable and improving. FOLLOWUP APPOINTMENT: With Gail Pedro PA-C, on 04/19/2017 at 10 a.m. DISCHARGE MEDICATIONS: Home medications, Cipro 500 mg b.i.d. #120. She is to resume her home medications. DISCHARGE DIET: Usual diet as tolerated. Drink 8 to 10 glasses of water a day. ACTIVITY: No lifting greater than 10 pounds for 6 weeks. Driving, do not drive. Shower bathing, may shower. DISCHARGE INSTRUCTIONS: Notify provider if any fever, increased pain, nausea, or vomiting. Keep site clean and dry. Pack open incision twice daily as directed. Use incentive spirometer 10 times every hour while awake and home health care to flush Lorenzo catheter once a week.
--- NOTE | 2017-04-19 15:22 | OR ---
DATE OF PROCEDURE: 04/11/2017 PREOPERATIVE DIAGNOSES: 1. Indications for central venous access. 2. Open abdominal incision. POSTOPERATIVE DIAGNOSES: 1. Indications for central venous access. 2. Open abdominal incision. OPERATIVE PROCEDURES: 1. Placement of double-lumen Lorenzo catheter via left subclavian vein approach (82795). 2. Abdominal dressing change under anesthesia (99689). ANESTHESIA: Local plus IV sedation. RADIOLOGY PHYSICIAN: Trini Gaviria MS-3. INDICATION: This 56-year-old presenting with recurrent intra-abdominal abscess, which was drained. She presently has an open incision and that is going to have a dressing change under anesthesia. She also has very limited peripheral venous access and a Lorenzo catheter is going to be placed. Potential risks of the procedure including bleeding, infection, injury to the lung and/or vasculature, problems with the Lorenzo catheter becoming infected or occluded were all reviewed, and the patient wishes to proceed. DETAILS OF PROCEDURE: The patient was taken to the operating room and placed in the supine position. IV sedation was administered, after which the upper chest and neck areas were prepped and draped. The left subclavian area was anesthetized with 1% lidocaine mixed with Marcaine. The left subclavian vein cannulated and guidewire was manipulated through the subclavian vein and into the superior vena cava. Some additional local was injected and roughly handsbreadth below the original puncture site, a second incision was made and the Lorenzo catheter tunneled between the 2 incisions. Following that, over the guidewire, introducer and peel-away catheter were placed, and the Lorenzo catheter was cut such that the tip would lie in the upper right atrium and catheter was then deployed via the peel-away catheter system without any difficulty. Good in and out flow was noted. The original puncture site was closed with subcuticular stitch of 5-0 Vicryl stitch, and the catheter was affixed to the skin with some 3-0 nylon stitch and dressing applied. The ports were once again flushed with heparinized saline. The attention was then taken to the abdominal dressing. The wound was taken down and found to be quite clean with no recurrent purulence or signs of cellulitis. A new dressing consisting of Iodoform gauze was then placed, and the patient was taken to the recovery room in a satisfactory condition. Kit Duke MD /[id number]
== END 2017-04-12 10:45 | disposition home health service (06) | DRG 939 ==
LOC: JP.ED 11:30 → JP.MS 17:15
PROVIDERS: ADMIT Hospitalist; ATTEND Hospitalist
PROC: 0J980ZX Drainage of Abdomen Subcutaneous Tissue and Fascia, Open Approach, Diagnostic (ICD-10-PCS; principal; 2017-04-09)
PROC: 0JD80ZZ Extraction of Abdomen Subcutaneous Tissue and Fascia, Open Approach (ICD-10-PCS; 2017-04-09)
PROC: 0JC80ZZ Extirpation of Matter from Abdomen Subcutaneous Tissue and Fascia, Open Approach (ICD-10-PCS; 2017-04-09)
PROC: 0WQF0ZZ Repair Abdominal Wall, Open Approach (ICD-10-PCS; 2017-04-11)
PROC: 05H633Z Insertion of Infusion Device into Left Subclavian Vein, Percutaneous Approach (ICD-10-PCS; 2017-04-11)
DX: T81.4XXD Infection following a procedure, subsequent encounter (principal); K65.1 Peritoneal abscess; L02.211 Cutaneous abscess of abdominal wall; L03.311 Cellulitis of abdominal wall; B37.89 Other sites of candidiasis; R10.9 Unspecified abdominal pain; K91.2 Postsurgical malabsorption, not elsewhere classified; Z99.81 Dependence on supplemental oxygen; M79.5 Residual foreign body in soft tissue; Z98.84 Bariatric surgery status; Z79.2 Long term (current) use of antibiotics; Z85.79 Personal history of other malignant neoplasms of lymphoid, hematopoietic and related tissues; M19.90 Unspecified osteoarthritis, unspecified site; M54.9 Dorsalgia, unspecified; G89.29 Other chronic pain; Z86.73 Personal history of transient ischemic attack (TIA), and cerebral infarction without residual deficits; Z91.030 Bee allergy status; Z88.5 Allergy status to narcotic agent; Z88.8 Allergy status to other drugs, medicaments and biological substances; M32.9 Systemic lupus erythematosus, unspecified; E53.8 Deficiency of other specified B group vitamins
CPT/HCPCS: 36415; 74177; 80048; 85027; 99284; 99285; A9270; J7030; J7050 ×2; Q9965; Q9967; 81001; 83735; 84100; 85025; 87040; 87070; 87075; 87077; 87205; 88300; 88304; 88313; 88341; 88342; 94762; J1100; J1170; J1450; J1642; J2020; J2175; J2185; J2250; J2405; J2704; J3010; J7120

== ENCOUNTER 2018-04-26 06:53 | Day surgery (SDC) | payer MEDICARE, OTHER ==
[2018-04-26] MEDS ORDERED: Propofol 200 MG/20 ML SDV ONE (07:03)
[2018-04-26] MEDS ORDERED: fentaNYL 100 MCG/2 ML SDV ONE (07:03)
[2018-04-26] MEDS ORDERED: Midazolam 1 MG/ML 2 ML SDV ONE (07:03)
[2018-04-26] MEDS ORDERED: Dextrose 5%-Lactated Ringers 1,000 ML IV SCH (08:15)
[2018-04-26 10:04] VITALS: BP 157/66
--- NOTE | 2018-05-07 13:39 | OR ---
DATE OF PROCEDURE: 04/26/2018 PREOPERATIVE DIAGNOSES: 1. Dysphagia. 2. Frequent loose bowel movements. POSTOPERATIVE DIAGNOSES: 1. Grossly normal upper gastrointestinal endoscopy (likely laryngopharyngeal dysphagia unrelated to anatomical abnormalities). 2. Excoriated hemorrhoids, otherwise normal colonoscopy. PROCEDURES: 1. Upper GI endoscopy. 2. Flexible colonoscopy. ANESTHESIA: IV sedation. INDICATION FOR PROCEDURE: The patient presents with some dysphagia as well as some frequent loose bowel movements. The patient underwent upper and lower endoscopy. The patient's dysphagia is primarily related to the laryngopharyngeal area, but we will rule out other abnormalities as well with the patient being status post previous gastric bypass. Potential risks of the procedure including bleeding and perforation were discussed, and the patient wishes to proceed. DETAILS OF PROCEDURE: The patient was taken to the operating room, placed in a left lateral decubitus position. IV sedation was administered after which the upper GI endoscope was passed orally through the length of the esophagus through the gastric pouch and gastrojejunostomy roughly 20 cm into the [place] limb. Findings overall were entirely normal. There were no areas of stricturing or inflammation. The gastrojejunostomy was widely patent, and there was no fluid or retained bile within the [place] limb, i.e., no suggestion of more distal bowel obstruction. The scope was withdrawn and the above findings were then re-confirmed. The patient then underwent the colonoscopy. Initial digital rectal exam was performed and was unremarkable. The colonoscope was then passed into the rectum with retroflexion revealing some mildly excoriated hemorrhoids. Otherwise, the scope was passed up to the level of the ileocolic anastomosis. With the patient being status post previous subtotal colectomy, that anastomosis was patent and otherwise there were no abnormalities remaining within the colon or the area of the ileocolic anastomosis. The scope was then withdrawn and findings re-confirmed. The procedure concluded. The patient was taken to the recovery room in satisfactory condition. The plan will be to have the patient be set up for x-ray, swallow study, and Speech Pathology consult to evaluate the laryngopharyngeal dysphagia. Follow up with Gail Pedro at [facility] in 6 weeks. Kit Duke MD /[id number]
== END 2018-04-26 10:15 | disposition home or self-care (01) ==
LOC: JP.SDS 06:53
PROVIDERS: ATTEND Surgery
DX: R13.10 Dysphagia, unspecified (principal); K64.9 Unspecified hemorrhoids; J45.909 Unspecified asthma, uncomplicated
CPT/HCPCS: 43235; 45378; J2250; J2704; J3010; J7042

== ENCOUNTER 2020-05-18 07:48 | Day surgery (SDC) | payer MEDICARE, OTHER ==
[~2020-05-18 07:48] MED LIST changes: +Cyanocobalamin (Vitamin B12) 1,000 MCG/ML SDV IM ONE; +Midazolam 1 MG/ML 2 ML SDV ONE; +Propofol 200 MG/20 ML SDV ONE; -cefOXitin 2 GM Vial ONE; +fentaNYL 100 MCG/2 ML SDV ONE
[2020-05-18] MEDS ORDERED: Glycopyrrolate 0.2 MG/ML 2 ML SDV IVPUSH ONE ×2 (08:27→09:45)
[2020-05-18] MEDS ORDERED: Lactated Ringers 1,000 ML IV ONE (08:28)
[2020-05-18] MEDS ORDERED: MVI, Adult with Vitamin K 10 ML, Thiamine 200 MG, Zinc/Copper/Manganese/Selenium 1 ML i... IV ONE ×8 (09:30→10:45)
[2020-05-18] MEDS ORDERED: Lactated Ringers 1,000 ML IV SCH (09:45)
[2020-05-18 11:47] VITALS: BP 138/86; PULSE 67
--- NOTE | 2020-05-25 15:16 | OR ---
DATE OF PROCEDURE: 05/18/2020 SURGEON: Kit Duke MD PREOPERATIVE DIAGNOSES: Dysphagia and epigastric and substernal pain. POSTOPERATIVE DIAGNOSES: Retained bile in [place] limb with a dilated esophagus with reddened area of distal esophagus. OPERATIVE PROCEDURE: Upper gastrointestinal endoscopy. ANESTHESIA: IV sedation. INDICATION FOR PROCEDURE: A 59-year-old female status post right [place]-en-Y gastric bypass followed by total gastrectomy in April of 2015 presents now with some dysphagia as well as some epigastric and substernal pain. The patient presently is on Protonix. The plan is to proceed with upper GI endoscopy with dilation and biopsies as indicated. Potential risks including bleeding and perforation were discussed and the patient wishes to proceed. DETAILS OF PROCEDURE: The patient was taken to the operating room, placed in a left lateral decubitus position. IV sedation was administered after which the upper GI endoscope was passed orally through the length of the esophagus and into the area of the esophagojejunostomy, from there roughly 20 cm into the [place] limb. Findings included a somewhat dilated esophagus with some retained bile within the [place] limb associated with some mild redness in the area of the distal esophagus. No fistula into the bypassed stomach could be demonstrated, but otherwise the exam was unremarkable. The scope was then withdrawn, the above findings reconfirmed. At this point, the plan will be that the patient add some chewable Pepto-Bismol to her regimen p.r.n. for some discomfort. Will follow up with Gail Pedro in 3 to 4 weeks. If still having significant symptoms, one might consider an upper GI and small-bowel follow- through study to look for occult fistula into the bypassed stomach versus a partial small- bowel obstruction. Kit Duke MD /[id number]
== END 2020-05-18 11:55 | disposition home or self-care (01) ==
LOC: JP.SDS 07:48
PROVIDERS: ATTEND Surgery
DX: K95.89 Other complications of other bariatric procedure (principal); K22.8 Other specified diseases of esophagus; J45.909 Unspecified asthma, uncomplicated
CPT/HCPCS: J2250; J2704; J3010; J3411; J3420; J3490; J7120